=== PATIENT | female | born 1940 | race Caucasian/White ===

== ENCOUNTER 2021-02-06 09:00 | Outpatient (RCR) | payer MEDICARE, SELFPAY | END 2021-02-06 13:00 | disposition home or self-care (01) | LOC: OT 09:00 | PROVIDERS: PCP Nurse Practitioner Family; Visit Provider Orthopaedic Surgery Adult Reconstructive Orthopaedic Surgery | DX: S62.102D Fracture of unspecified carpal bone, left wrist, subsequent encounter for fracture with routine healing (principal) | CPT/HCPCS: 97014; 97018; 97035; 97110; 97140; 97164; 97165; 97530; G0283 ==

== ENCOUNTER → 2021-03-05 09:01 | Outpatient (CLI) | payer MEDICARE, SELFPAY ==
--- NOTE | 2021-03-05 09:26 | CT_ITS ---
PROCEDURE: CT SOFT TISSUE NECK WO/W CON CLINICAL HISTORY: right sided lymph node swollen COMPARISON: US THY US THYROID from 02/07/2017 TECHNIQUE: Oral Contrast: None IV Contrast: 75 mL Isovue 370 Axial images obtained with sagittal and coronal reformats. All CT scans at the facility use one or more dose reduction, viz: automated exposure control, ma/kV adjustment per patient size (including targeted exams where dose is matched to indication, i.e. head), or iterative reconstruction technique. FINDINGS: The nasopharynx has an unremarkable appearance. No obvious oropharynx or hypo pharyngeal lesions or masses. The parotid and submandibular glands appear unremarkable. Unremarkable epiglottis and glottic region. Enlarged lymph node is present posterior to the jugular vein and deep to the sternocleidomastoid muscle on the right, level 2 B. This measures 2.2 x 1.6 x 1.8 cm and demonstrates peripheral enhancement with decreased density centrally. Additional smaller nodes are present inferior to this region along the jugular vein. 1.4 cm node is present in the right supraclavicular area medially just lateral to the jugular vein. The There has been prior thyroid surgery. There does appear to be residual tissue inferior to the expected level of the isthmus with extension to the right of the trachea to the paraesophageal region. The inferior isthmus area measures 2.5 x 1.4 cm. The right paratracheal extension measures 2.1 by 1.4 cm. Heterogeneous density is noted in both of these regions. Lung apices are clear. There are degenerative changes in the cervical spine with degenerative disc disease at C5-C6 and C6-C7. IMPRESSION: 1. Right-sided cervical adenopathy as described above. The lymph nodes have an abnormal appearance with peripheral enhancement and decreased density centrally. This could be due to underlying infection or reactive change or even neoplasm. Follow-up suggested. Ultrasound-guided FNA of the largest node may provide further evaluation. 2. Prior thyroidectomy with residual heterogeneous tissue at the sternal notch region and in the right paratracheal area. Dictated by: Joseluis Montoya MD 03/06/2021 08:24 Joseluis Montoya MD in [place] 03/06/2021 08:24
[2021-03-05 09:49] LABS: Alanine Aminotransferase 12 U/L (12-78); Albumin Level 4.1 g/dl (3.5-5.0); Albumin/Globulin Ratio 1.3 (1.1-1.8); Alkaline Phosphatase 98 U/L (38-126); Anion Gap 11.9 mEq/L (5-15); Aspartate Amino Transferase 15 U/L (14-36); Bilirubin,Total 0.5 mg/dl (0.2-1.3); Blood Urea Nitrogen 8 mg/dl (7-17); Calcium 7.9 mg/dl (8.4-10.2); Carbon Dioxide 31 mmol/L (22.0-30.0); Chloride 92 mmol/L (98-107); Estimated Glomerular Filt Rate 154 ml/min (>60); GFR (African American) 186 ML/MIN (>60); Globulin 3.1 g/dL (1.3-3.2); Glucose 114 mg/dl (74-100); Potassium 3.9 mmoL/L (3.5-5.1); Sodium 131 mmol/L (136-145); Total Protein,Serum 7.2 g/dl (6.3-8.2)
== END ==
PROVIDERS: PCP Nurse Practitioner Family; Visit Provider Otolaryngology
DX: R22.1 Localized swelling, mass and lump, neck (principal); E03.9 Hypothyroidism, unspecified
CPT/HCPCS: 36415; 70492; 80053; Q9967

== ENCOUNTER → 2021-04-24 12:18 | Outpatient (CLI) | payer MEDICARE, SELFPAY ==
[2021-04-24 12:26] LABS: MANUAL DIFFERENTIAL MANUAL DIFFERENTIAL (MANUAL DIFF)
[2021-04-24 12:42] LABS: Basophils # 0.1 K/mm3 (0-0.2); Basophils % 1.1 % (0.1-2.0); Eosinophils # 0.1 K/mm3 (0.0-0.4); Eosinophils % 1.3 % (0.1-12.0); Hematocrit 42.6 % (37.0-47.0); Hemoglobin 13.9 g/dL (12.2-16.2); Lymphocytes # 1.3 K/mm3 (0.7-4.5); Lymphocytes % 22.1 % (10-50); Mean Corpuscular HGB Conc 32.6 g/dL (31.8-35.4); Mean Corpuscular Hemoglobin 29.6 pg (27.0-31.2); Mean Corpuscular Volume 90.8 fl (81-99); Mean Platelet Volume 7.3 fl (7.4-10.4); Monocytes # 0.3 K/mm3 (0.1-1.0); Monocytes % 5.1 % (1.7-9.3); Neutrophils # 4.1 K/mm3 (1.8-7.8); Neutrophils % 70.5 % (37.0-80.0); Platelet Count 388 K/mm3 (142-424); Red Blood Count 4.69 M/mm3 (4.20-5.40); Red Cell Distribution Width 12.8 % (11.5-17.5); White Blood Count 5.8 K/mm3 (4.8-10.8)
[2021-04-24 13:52] LABS: Alanine Aminotransferase 14 U/L (12-78); Albumin Level 4.6 g/dl (3.5-5.0); Albumin/Globulin Ratio 1.4 (1.1-1.8); Alkaline Phosphatase 90 U/L (38-126); Anion Gap 13.9 mEq/L (5-15); Aspartate Amino Transferase 17 U/L (14-36); Bilirubin,Total 0.3 mg/dl (0.2-1.3); Blood Urea Nitrogen 11 mg/dl (7-17); Calcium 8.5 mg/dl (8.4-10.2); Carbon Dioxide 29 mmol/L (22.0-30.0); Chloride 93 mmol/L (98-107); Estimated Glomerular Filt Rate 96 ml/min (>60); GFR (African American) 117 ML/MIN (>60); Globulin 3.2 g/dL (1.3-3.2); Glucose 118 mg/dl (74-100); Potassium 3.9 mmoL/L (3.5-5.1); Sodium 132 mmol/L (136-145); Total Protein,Serum 7.8 g/dl (6.3-8.2)
[2021-04-24 14:05] LABS: Intact Parathyroid Hormone 15.2 pg/mL (7.5-53.5)
[2021-04-24 14:24] LABS: Thyroid Stimulating Hormone 0.15 uIU/mL (0.465-4.68)
[2021-04-24 16:29] LABS: Lymphocytes % 17 % (10-50); Monocytes % 6 % (2-9); Neutrophils % 77 % (42-76); Platelet Estimate B; RBC Morphology BP; Total Cells Counted 100
[2021-04-25 08:18] LABS: CEA 11.5 ng/mL (0.0-4.7)
== END ==
PROVIDERS: Visit Provider Student in an Organized Health Care Education/Training Program
DX: E03.9 Hypothyroidism, unspecified (principal); R22.1 Localized swelling, mass and lump, neck; Z85.850 Personal history of malignant neoplasm of thyroid; R97.0 Elevated carcinoembryonic antigen [CEA]
CPT/HCPCS: 36415; 80053; 82308; 82378; 83970; 84443; 85007; 85014; 85018; 85048; 85049

== ENCOUNTER → 2021-05-02 09:52 | Outpatient (CLI) | payer MEDICARE, SELFPAY ==
--- NOTE | 2021-05-02 09:53 | US_ITS ---
Ordering Physician: Ray Velazquez MD Date of Service: 05/02/21 Procedure(s): US soft tissue head and neck Accession Number(s): [id number] cc: Sarina Lassiter APRN; Angel Luis Wright MD~ FINAL REPORT CLINICAL HISTORY: SCAN BEFORE BX fna palp rt neck node fna sternal notch mass FINDINGS: Utilizing ultrasound guidance, the right jugular lymph node was targeted. The patient was anesthetized with Lidocaine. 4 passes were made. The patient tolerated the procedure well. Next, the sternal notch lesion was targeted. The area was anesthetized with Lidocaine and 2 passes were made. The patient tolerated the procedure well. There were no complications. IMPRESSION: Ultrasound guided biopsies performed of the right jugular lymph node and sternal notch lesion. Reviewed, Interpreted and Dictated by Angel Luis Wright MD Transcribed by MICHAEL Loja Authenticated by Angel Luis Wright MD on 05/02/2021 03:14:38 PM [facility] SYSTEM[facility]
--- NOTE | 2021-05-02 10:23 | US_ITS ---
FINAL REPORT CLINICAL HISTORY: SCAN BEFORE BX fna palp rt neck node fna sternal notch mass FINDINGS: Utilizing ultrasound guidance, the right jugular lymph node was targeted. The patient was anesthetized with Lidocaine. 4 passes were made. The patient tolerated the procedure well. Next, the sternal notch lesion was targeted. The area was anesthetized with Lidocaine and 2 passes were made. The patient tolerated the procedure well. There were no complications. IMPRESSION: Ultrasound guided biopsies performed of the right jugular lymph node and sternal notch lesion. Reviewed, Interpreted and Dictated by Angel Luis Wright MD Transcribed by MICHAEL Loja Authenticated by Angel Luis Wright MD on 05/02/2021 03:14:38 PM [facility]
== END ==
PROVIDERS: PCP Nurse Practitioner Family; Visit Provider Student in an Organized Health Care Education/Training Program
DX: R22.1 Localized swelling, mass and lump, neck
CPT/HCPCS: 10005; 76536; 88173; 88305; 88342

== ENCOUNTER → 2022-12-19 18:08 | Outpatient (CLI) | payer MEDICARE, SELFPAY ==
[2022-12-19 19:09] LABS: Anion Gap 18.2 mEq/L (5-15); Blood Urea Nitrogen 30 mg/dl (7-17); Calcium 7.5 mg/dl (8.4-10.2); Carbon Dioxide 25 mmol/L (22.0-30.0); Chloride 95 mmol/L (98-107); Estimated Glomerular Filt Rate 36 ml/min (>60); GFR (African American) 44 ML/MIN (>60); Glucose 108 mg/dl (74-100); Magnesium 1.6 mg/dl (1.6-2.3); Potassium 5.2 mmoL/L (3.5-5.1); Sodium 133 mmol/L (136-145)
== END ==
PROVIDERS: PCP Internal Medicine Nephrology; Visit Provider Internal Medicine Nephrology
DX: N28.9 Disorder of kidney and ureter, unspecified (principal); E83.42 Hypomagnesemia
CPT/HCPCS: 80048; 83735

== ENCOUNTER → 2022-12-19 23:37 | Outpatient (CLI) | payer MEDICARE, SELFPAY | PROVIDERS: PCP Family Medicine; Visit Provider Family Medicine | DX: N28.9 Disorder of kidney and ureter, unspecified (principal) ==

== ENCOUNTER → 2022-12-26 16:39 | Outpatient (CLI) | payer MEDICARE, SELFPAY ==
[2022-12-26 18:04] LABS: Chloride 95 mmol/L (98-107); Potassium 5.3 mmoL/L (3.5-5.1); Sodium 131 mmol/L (136-145)
[2022-12-26 18:06] LABS: Blood Urea Nitrogen 28 mg/dl (7-17); Estimated Glomerular Filt Rate 36 ml/min (>60); GFR (African American) 44 ML/MIN (>60)
[2022-12-26 18:07] LABS: Anion Gap 23.3 mEq/L (5-15); Calcium 7.6 mg/dl (8.4-10.2); Carbon Dioxide 18 mmol/L (22.0-30.0); Glucose 98 mg/dl (74-100); Magnesium 1.8 mg/dl (1.6-2.3)
== END ==
PROVIDERS: PCP Family Medicine; Visit Provider Internal Medicine Nephrology
DX: N28.9 Disorder of kidney and ureter, unspecified (principal); E83.42 Hypomagnesemia
CPT/HCPCS: 80048; 83735

== ENCOUNTER → 2022-12-26 23:29 | Outpatient (CLI) | payer MEDICARE, SELFPAY | PROVIDERS: PCP Family Medicine; Visit Provider Nurse Practitioner Family | DX: N28.9 Disorder of kidney and ureter, unspecified (principal); E83.42 Hypomagnesemia ==

== ENCOUNTER → 2023-01-02 16:20 | Outpatient (CLI) | payer MEDICARE, SELFPAY ==
[2023-01-02 17:17] LABS: Chloride 98 mmol/L (98-107); Sodium 131 mmol/L (136-145)
[2023-01-02 17:18] LABS: Potassium 5.3 mmoL/L (3.5-5.1)
[2023-01-02 17:20] LABS: Anion Gap 21.3 mEq/L (5-15); Blood Urea Nitrogen 30 mg/dl (7-17); Calcium 7.9 mg/dl (8.4-10.2); Carbon Dioxide 17 mmol/L (22.0-30.0); Estimated Glomerular Filt Rate 39 ml/min (>60); GFR (African American) 48 ML/MIN (>60); Glucose 85 mg/dl (74-100)
[2023-01-02 17:21] LABS: Magnesium 1.7 mg/dl (1.6-2.3)
== END ==
PROVIDERS: PCP Family Medicine; Visit Provider Internal Medicine Nephrology
DX: N28.9 Disorder of kidney and ureter, unspecified (principal); E83.42 Hypomagnesemia
CPT/HCPCS: 80048; 83735

== ENCOUNTER → 2023-01-09 17:21 | Outpatient (CLI) | payer MEDICARE, SELFPAY ==
[2023-01-09 17:50] LABS: Chloride 98 mmol/L (98-107)
[2023-01-09 17:51] LABS: Potassium 5.1 mmoL/L (3.5-5.1); Sodium 132 mmol/L (136-145)
[2023-01-09 17:53] LABS: Blood Urea Nitrogen 48 mg/dl (7-17); Estimated Glomerular Filt Rate 24 ml/min (>60); GFR (African American) 29 ML/MIN (>60)
[2023-01-09 17:54] LABS: Anion Gap 21.1 mEq/L (5-15); Calcium 9.6 mg/dl (8.4-10.2); Carbon Dioxide 18 mmol/L (22.0-30.0); Glucose 125 mg/dl (74-100); Magnesium 1.9 mg/dl (1.6-2.3)
== END ==
PROVIDERS: PCP Internal Medicine Nephrology; Visit Provider Internal Medicine Nephrology
DX: N28.9 Disorder of kidney and ureter, unspecified (principal); E83.42 Hypomagnesemia
CPT/HCPCS: 80048; 83735

== ENCOUNTER → 2023-01-16 17:53 | Outpatient (CLI) | payer MEDICARE, SELFPAY ==
[2023-01-16 19:17] LABS: Chloride 104 mmol/L (98-107); Potassium 4.9 mmoL/L (3.5-5.1); Sodium 136 mmol/L (136-145)
[2023-01-16 19:20] LABS: Anion Gap 19.9 mEq/L (5-15); Blood Urea Nitrogen 41 mg/dl (7-17); Calcium 8.6 mg/dl (8.4-10.2); Carbon Dioxide 17 mmol/L (22.0-30.0); Estimated Glomerular Filt Rate 33 ml/min (>60); GFR (African American) 40 ML/MIN (>60); Glucose 112 mg/dl (74-100); Magnesium 1.8 mg/dl (1.6-2.3)
== END ==
PROVIDERS: Visit Provider Internal Medicine Nephrology
DX: N28.9 Disorder of kidney and ureter, unspecified (principal); E83.42 Hypomagnesemia
CPT/HCPCS: 80048; 83735

== ENCOUNTER → 2023-04-02 10:43 | Outpatient (CLI) | payer MEDICARE, SELFPAY ==
[2023-04-02 10:58] LABS: Microscopic, Urine URINE MICROSCOPIC (MICROSCOPIC)
[2023-04-02 11:15] LABS: Basophils % 0.3 % (0.1-2.0); Eosinophils # 0.1 K/mm3 (0.0-0.4); Hematocrit 40.7 % (37.0-47.0); Hemoglobin 13.6 g/dL (12.2-16.2); Lymphocytes # 2.2 K/mm3 (0.7-4.5); Lymphocytes % 19.7 % (10-50); Mean Corpuscular HGB Conc 33.3 g/dL (31.8-35.4); Mean Corpuscular Hemoglobin 30.4 pg (27.0-31.2); Mean Corpuscular Volume 91.3 fl (81-99); Mean Platelet Volume 7.4 fl (7.4-10.4); Monocytes # 0.4 K/mm3 (0.1-1.0); Monocytes % 3.8 % (1.7-9.3); Neutrophils # 8.3 K/mm3 (1.8-7.8); Neutrophils % 75.3 % (37.0-80.0); Platelet Count 511 K/mm3 (142-424); Red Blood Count 4.46 M/mm3 (4.20-5.40); Red Cell Distribution Width 13.4 % (11.5-17.5); White Blood Count 11.1 K/mm3 (4.8-10.8)
[2023-04-02 11:17] LABS: Appearance,Urine CLOUDY (Clear); Bilirubin,Urine Negative (Negative); Blood, Urine TRACE-I (Negative); Color,Urine YELLOW (Yellow); Glucose,Urine (UA) Negative (Negative); Ketones,Urine Negative (Negative); Leukocyte Esterase,Urine 3+ (Negative); Nitrate,Urine Negative (Negative); Protein,Urine 2+ (Negative); Urobilinogen,Urine 0.2 EU/dl (0.2)
[2023-04-02 11:22] LABS: Creatinine,Urine Random 73 mg/dL (Not Estab.)
[2023-04-02 11:31] LABS: Bacteria,Urine 4+ /lpf; WBC,Urine 50-100 #/hpf (0-3)
[2023-04-02 11:47] LABS: Albumin Level 3.8 g/dl (3.5-5.0); Blood Urea Nitrogen 23 mg/dl (7-17); Calcium 7.2 mg/dl (8.4-10.2); Carbon Dioxide 25 mmol/L (22.0-30.0); Chloride 98 mmol/L (98-107); Estimated Glomerular Filt Rate 60 ml/min (>60); GFR (African American) 73 ML/MIN (>60); Glucose 112 mg/dl (74-100); Phosphorous 5.3 mg/dl (2.5-4.5); Sodium 131 mmol/L (136-145)
== END ==
PROVIDERS: PCP Family Medicine; Visit Provider Internal Medicine Nephrology
DX: N28.9 Disorder of kidney and ureter, unspecified; N39.0 Urinary tract infection, site not specified; B96.29 Other Escherichia coli [E. coli] as the cause of diseases classified elsewhere; B96.89 Other specified bacterial agents as the cause of diseases classified elsewhere; Z79.899 Other long term (current) drug therapy
CPT/HCPCS: 36415; 80069; 81001; 82570; 84155; 85025; 87086

== ENCOUNTER 2023-07-09 10:31 | Outpatient (CLI) | payer MEDICARE, SELFPAY ==
[2023-07-09 11:39] LABS: Hematocrit 41.8 % (37.0-47.0); Hemoglobin 13.6 g/dL (12.2-16.2); Mean Corpuscular HGB Conc 32.6 g/dL (31.8-35.4); Mean Corpuscular Hemoglobin 29.7 pg (27.0-31.2); Mean Corpuscular Volume 91.1 fl (81-99); Platelet Count 507 K/mm3 (142-424); Red Blood Count 4.59 M/mm3 (4.20-5.40); Red Cell Distribution Width 14.6 % (11.5-17.5); White Blood Count 8.5 K/mm3 (4.8-10.8)
[2023-07-09 11:59] LABS: Anion Gap 14.3 mEq/L (5-15); Blood Urea Nitrogen 20 mg/dl (7-17); Calcium 8.3 mg/dl (8.4-10.2); Carbon Dioxide 27 mmol/L (22.0-30.0); Chloride 98 mmol/L (98-107); Estimated Glomerular Filt Rate 53 ml/min (>60); GFR (African American) 64 ML/MIN (>60); Glucose 102 mg/dl (74-100); Phosphorous 5.4 mg/dl (2.5-4.5); Potassium 4.3 mmoL/L (3.5-5.1); Sodium 135 mmol/L (136-145)
[2023-07-09 12:13] LABS: Creatinine,Urine Random 77 mg/dL (Not Estab.)
[2023-07-09 12:28] LABS: Appearance,Urine CLEAR (Clear); Bilirubin,Urine Negative (Negative); Blood, Urine TRACE-I (Negative); Color,Urine YELLOW (Yellow); Glucose,Urine (UA) Negative (Negative); Ketones,Urine TRACE (Negative); Leukocyte Esterase,Urine 2+ (Negative); Nitrate,Urine Negative (Negative); Protein,Urine 2+ (Negative); Urobilinogen,Urine 0.2 EU/dl (0.2)
[2023-07-09 12:30] LABS: Bacteria,Urine 4+ /lpf; Microscopic, Urine URINE MICROSCOPIC (MICROSCOPIC)
[2023-07-09 12:32] LABS: WBC,Urine 50-100 #/hpf (0-3)
[2023-07-10 07:13] LABS: HBsAg Screen Negative (Negative); HCV Ab Non Reactive (Non Reactive); Hep A Ab, IGM Negative (Negative); Hep B Core Ab, IgM Negative (Negative)
[2023-07-10 15:10] LABS: Albumin 3.5 g/dL (2.9-4.4); Alpha-1-Globulin 0.3 g/dL (0.0-0.4); Alpha-2-Globulin 1.1 g/dL (0.4-1.0); Complement C3 116 mg/dL (82-167); Gamma Globulin 1.2 g/dL (0.4-1.8); Immunoglobulin A, Qn 315 mg/dL (64-422); Immunoglobulin G, Qn 966 mg/dL (586-1602); Immunoglobulin M, Qn 403 mg/dL (26-217); Protein, Total 7.1 g/dL (6.0-8.5)
[2023-07-12 12:53] LABS: Antinuclear Antibodies, IFA Negative (.)
[2023-07-14 09:45] LABS: PDF SCANNED IMAGE
[2023-07-14 09:46] LABS: Free Lambda Lt Chains 32.9
== END 2023-07-09 23:59 ==
LOC: LAB 10:33
PROVIDERS: PCP Family Medicine; Visit Provider Internal Medicine Nephrology
DX: R80.1 Persistent proteinuria, unspecified (principal); B96.29 Other Escherichia coli [E. coli] as the cause of diseases classified elsewhere; R63.4 Abnormal weight loss; Z68.23 Body mass index [BMI] 23.0-23.9, adult
CPT/HCPCS: 36415; 80069; 80074; 81001; 82570; 82784; 83883; 84155; 84156; 84165; 85014; 85018; 85048; 85049; 86038; 86161; 86334; 87086

== ENCOUNTER 2023-08-13 06:50 | Emergency (ER) | payer MEDICARE, SELFPAY ==
[2023-08-13] VITALS (8 sets, daily range): BP systolic 136–177; BP diastolic 59–86; PULSE 54–81; RESP 16–20; TEMP 36.5–36.8; O2SAT 90–96; BMI 23.0
--- NOTE | 2023-08-13 07:09 | CT_ITS ---
FINAL REPORT TECHNIQUE: Thin section axial CT images with coronal reformats were obtained through the neck after the administration of IV contrast. This study was performed with techniques to keep radiation doses as low as reasonably achievable (ALARA). Individualized dose reduction techniques using automated exposure control or adjustment of mA and/or kV according to the patient''s size were employed. CLINICAL HISTORY: R sided neck pain, atraumatic, h/o thyroid ca COMPARISON: 03/05/2021 FINDINGS: Redemonstrated is heterogeneously enhancing right cervical adenopathy. Dominant nodule measures 1.9 cm in greatest dimension, slightly larger than previous. Finding is best seen on images 46-49 of series 3. Other smaller enhancing nodules are seen in the right cervical region. There are postoperative changes from partial thyroidectomy. Residual thyroid tissue is seen at the sternal notch and right superior mediastinum, similar to previous. There are changes of mild right maxillary sinusitis. IMPRESSION: Enhancing right cervical lymph nodes concerning for possible metastatic adenopathy. If not already obtained, tissue sampling of the dominant nodule is recommended. Residual thyroid tissue at the sternal notch and right superior mediastinum. Reviewed, Interpreted and Dictated by Angel Luis Wright MD Transcribed by Mary Kay Whittington Authenticated and [facility] [place]
--- NOTE | 2023-08-13 07:09 | CT_ITS ---
FINAL REPORT TECHNIQUE: Axial images were obtained of the cervical spine by computed tomography. Coronal and sagittal reconstruction process performed. This study was performed with techniques to keep radiation doses as low as reasonably achievable (ALARA). Individualized dose reduction techniques using automated exposure control or adjustment of mA and/or kV according to the patient''s size were employed. CLINICAL HISTORY: R sided neck pain, atraumatic, h/o thyroid ca FINDINGS: There is no acute fracture. There is no subluxation. There is advanced disc space narrowing at C5-6 and C6-7. There is moderate anterior and posterior osteophyte formation at these levels. There is moderate to high-grade bilateral neural foraminal narrowing at C5-6 and C6-7. There is moderate spinal canal compromise, particularly eccentric to the right at C5-6 and C6-7. Surgical clips are seen in the thyroid bed consistent with prior thyroidectomy. IMPRESSION: No acute fracture. Degenerative disc disease as above. Reviewed, Interpreted and Dictated by Angel Luis Wright MD Transcribed by Mary Kay Whittington Authenticated and [facility]
--- NOTE | 2023-08-13 07:13 | ED_ITS ---
Discharge Plan Disposition Patient Disposition: Home, Self-Care Condition: Good Prescriptions Prescriptions: New naproxen 500 mg tablet 500 mg PO BID PRN (Reason: pain) Qty: 20 0RF methocarbamol 750 mg tablet 750 mg PO Q8H PRN (Reason: pain) Qty: 20 0RF No Action acetaminophen 325 mg capsule 325 mg PO QID PRN multivitamin Tablet 1 tab PO DAILY calcitriol 0.25 mcg capsule 0.25 mcg PO DAILY magnesium 200 mg tablet 400 mg PO DAILY escitalopram oxalate 10 mg tablet 10 mg PO DAILY Qty: 90 2RF calcium carbonate 500 mg calcium (1,250 mg) tablet,chewable See Rx Instructions PO BID Rx Instructions: orally twice a day; 3,000mg orally twice daily levothyroxine 150 mcg tablet 150 mcg PO DAILY torsemide 5 mg tablet 5 mg PO DAILY amiloride 5 mg tablet 10 mg PO DAILY prazosin 1 mg capsule 3 mg PO BID Simbrinza 1-0.2 % drops,suspension 1 drp Eye-Left BID Caprelsa 100 mg tablet 200 mg PO DAILY nifedipine 60 mg tablet extended release 60 mg PO DAILY hydrochlorothiazide 25 mg tablet 25 mg PO DAILY prednisone 50 mg tablet 50 mg PO DAILY Qty: 5 0RF omeprazole 40 mg capsule,delayed release(DR/EC) 40 mg PO DAILY 90 Days Qty: 90 1RF Referrals Follow up/Referrals: Onur Guerrero MD [Primary Care Provider] - See instructions Activity Restrictions/Add. Instructions Additional Instructions/Restrictions: You were evaluated in the emergency department today. At this time, your CT scan shows enlargement of lymph nodes in the right side of your neck, which could be related to your history of cancer. For this, recommend close follow-up with your primary care provider as well as your oncology team. 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 You may also take Tylenol in addition to these medications. Do not take naproxen and ibuprofen together. Return to the emergency department for new or worsening symptoms. Clinical Impressions Clinical Impression: Neck pain on right side, Enlarged lymph node in neck Instructions Patient Instructions: DI for Neck Pain Discharge ED Provider: Radha [facility] HPI General Chief complaint: Neck Pain/Injury Stated complaint: pain, stiffness in neck, nausea Time Seen by Provider: 08/13/23 07:09 Mode of Arrival: Ambulatory Source of Information: Patient Limitations: No Limitations Description of Symptoms (Recalled from ER Triage Doc. by RN): Pt has had a stiff neck for 3 days. This morning the pain was more intense. 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 Patient reports that for the last 3 days, her neck has been stiff and she has had pain with turning her head. It is mostly on the right side. No known injuries. No redness, swelling, or other concerns. She notes that she initially was getting better yesterday, until she woke around 4:00 in the morning with muscle spasms in the right side of her neck and felt that she could not get comfortable. No other concerns noted, such as fevers, altered mental status, significant headache, dysphagia, shortness of breath, or other concerns. Related Data Home Medications Medication Instructions Recorded Confirmed acetaminophen 325 mg capsule 325 mg PO QID PRN 01/15/22 04/03/23 calcitriol 0.25 mcg capsule 0.25 mcg PO DAILY 01/15/22 04/03/23 multivitamin 1 tab PO DAILY 01/15/22 04/03/23 amiloride 5 mg tablet 10 mg PO DAILY 12/27/22 04/03/23 brinzolamide 1 %-brimonidine 0.2 % 1 drp Eye-Left BID 12/27/22 04/03/23 eye drops,suspension (Simbrinza) calcium carbonate See Rx Instructions PO BID 12/27/22 04/03/23 levothyroxine 150 mcg tablet 150 mcg PO DAILY hypothyroidism 12/27/22 04/03/23 magnesium 200 mg tablet 400 mg PO DAILY 12/27/22 04/03/23 prazosin 1 mg capsule 3 mg PO BID 12/27/22 04/03/23 torsemide 5 mg tablet 5 mg PO DAILY 12/27/22 04/03/23 hydrochlorothiazide 25 mg tablet 25 mg PO DAILY edema 04/03/23 04/03/23 nifedipine 60 mg tablet,extended 60 mg PO DAILY HTN 04/03/23 04/03/23 release vandetanib 100 mg tablet (Caprelsa) 200 mg PO DAILY thyroid cancer 04/03/23 04/03/23 Previous Rx's Medication Instructions Recorded escitalopram oxalate 10 mg tablet 10 mg PO DAILY #90 tabs 12/26/22 prednisone 50 mg tablet 50 mg PO DAILY #5 tabs 04/03/23 omeprazole 40 mg capsule,delayed 40 mg PO DAILY GERD 90 days #90 04/22/23 release caps methocarbamol 750 mg tablet 750 mg PO Q8H PRN pain #20 tabs 08/13/23 naproxen 500 mg tablet 500 mg PO BID PRN pain #20 tabs 08/13/23 Allergies Allergy/AdvReac Type Severity Reaction Status Date / Time amoxicillin [From AUGMENTIN] Allergy Mild VOMITING Verified 04/03/23 11:33 clavulanic acid Allergy Mild VOMITING Verified 04/03/23 11:33 [From AUGMENTIN] [facility] Disclaimer: The information contained in this section may have been updated after the patient was seen, as this information can be updated by other users. Medical History Anxiety Thyroid cancer Hypertension Surgical History Hx of fracture of wrist H/O parathyroidectomy History of cholecystectomy History of hysterectomy H/O thyroidectomy Family History Father Cancer Mother Coronary artery disease Brother Diabetes Cancer Social History Smoking Status: Former smoker alcohol intake: never substance use type: denies use current occupational status: retired Travel in the last 8 weeks: None housing: house lives independently: No ROS Obtained: Yes All systems reviewed & no additional complaints except as documented Physical Exam General General appearance: alert and in no apparent distress Head Head exam: atraumatic and normocephalic Eye Eye exam: Present normal appearance, PERRL and EOMI ENT ENT exam: Present normal exam, normal oropharynx, mucous membranes moist and normal external ear exam Neck Neck exam: Present full ROM, trachea midline and tenderness (Tenderness to palpation of the right SCM without significant swelling, redness, warmth, or other concerns. No palpable areas of fluctuance or masses.); Absent meningismus, lymphadenopathy or thyromegaly Chest Chest inspection: Present normal inspection and symmetric chest wall rise; Absent tenderness Respiratory Respiratory exam: Present normal lung sounds bilaterally; Absent respiratory distress, wheezes, stridor or accessory muscle use Cardiovascular Cardiovascular exam: Present regular rate and normal rhythm Abdominal Exam Abdominal exam: Present soft; Absent distention, tenderness or guarding Extremities Exam Extremities exam: Present normal inspection, full ROM and normal capillary refill; Absent tenderness or edema Back Exam Back exam: Present normal inspection and full ROM; Absent tenderness Neurological Exam Neurological exam: Present alert, oriented X3, CN II-XII intact and normal gait; Absent motor sensory deficit Psychiatric Psychiatric exam: Present normal affect and normal mood Skin Skin exam: Present warm and dry Medical Decision Making Medical Records Medical records reviewed: Yes I reviewed the patient's medical records. Teddy Inquiry Pt receiving controlled substance: No Vital Signs: 08/13/23 06:53 08/13/23 07:00 08/13/23 07:30 Temperature 97.7 F Temperature Source Oral Pulse Rate 78 66 Pulse Rate [Left] 81 Respiratory Rate 16 Blood Pressure 155/81 H 161/83 H Blood Pressure [Right Arm] 177/86 H Blood Pressure Mean [Right Arm] 116 02 Sat by Pulse Oximetry 94 L 94 L 90 L Oxygen Delivery Method Room Air Room Air 08/13/23 08:00 08/13/23 08:30 08/13/23 09:00 Temperature Temperature Source Pulse Rate 60 56 L 56 L Pulse Rate [Left] Respiratory Rate Blood Pressure 144/71 H 145/64 H 141/63 H Blood Pressure [Right Arm] Blood Pressure Mean [Right Arm] 02 Sat by Pulse Oximetry 91 L 90 L 90 L Oxygen Delivery Method Room Air Room Air 08/13/23 09:30 08/13/23 10:10 Temperature 98.2 F Temperature Source Pulse Rate 54 L 57 L Pulse Rate [Left] Respiratory Rate 20 Blood Pressure 136/59 L 148/65 H Blood Pressure [Right Arm] Blood Pressure Mean [Right Arm] 02 Sat by Pulse Oximetry 90 L Oxygen Delivery Method Room Air Room Air Lab Data Lab results reviewed: Yes I reviewed the patient's lab results. Lab Results 08/13/23 07:20: WBC 10.9 H, RBC 4.70, Hgb 13.5, Hct 41.7, MCV 88.7, MCH 28.6, MCHC 32.3, RDW 15.2, Plt Count 492 H, MPV 7.3 L, Neut % (Auto) 87.0 H, Lymph % (Auto) 8.8 L, [place] % (Auto) 3.6, Eos % (Auto) 0.3, Baso % (Auto) 0.3, Neut # (Auto) 9.5 H, Lymph # (Auto) 1.0, [place] # (Auto) 0.4, Eos # (Auto) 0.0, Baso # (Auto) 0.0, Total Counted 100, Neutrophils % (Manual) 92 H, Band Neutrophils % 2.0, Lymphocytes % (Manual) 3 L, Monocytes % (Manual) 3, Platelet Estimate Slight increase, RBC Morphology Normal, Sodium 134 L, Potassium 3.9, Chloride 98, Carbon Dioxide 29, Anion Gap 10.9, BUN 19 H, Creatinine 0.90, Estimated Creat Clear 40, Estimated GFR 60, Est GFR ( Amer) 73, Glucose 133 H, C alcium 8.3 L, TSH 5.71 H, Thyroxine (T4) 14.6 H 08/13/23 07:20 08/13/23 07:20 Orders (Tests/Meds): ED MEDICATIONS Discontinued Medications Generic Name Dose Route Start Last Admin Trade Name Alexander PRN Reason Stop Dose Admin Acetaminophen 1,000 mg 08/13/23 07:09 08/13/23 07:22 Acetaminophen 500mg Tab PO 08/13/23 07:10 1,000 mg ONCE ONE Administration Iopamidol 75 ml 08/13/23 08:22 08/13/23 08:24 Iopamidol-370 (76%);100ml Bottle IV 08/13/23 08:23 75 ml ONCE ONE Administration Ketorolac Tromethamine 15 mg 08/13/23 07:09 08/13/23 07:22 Ketorolac 30mg/Ml Vial IV 08/13/23 07:10 15 mg ONCE ONE Administration Lidocaine 1 each 08/13/23 07:09 08/13/23 07:23 Lidocaine 5% Transdermal Patch TP 08/13/23 07:10 1 each ONCE ONE Administration Methocarbamol 500 mg 08/13/23 07:10 08/13/23 07:22 Methocarbamol 500mg Tablet PO 08/13/23 07:11 500 mg ONCE ONE Administration Ondansetron HCl 4 mg 08/13/23 07:09 08/13/23 07:22 Ondansetron 4mg/2ml Vial IV 08/13/23 07:10 4 mg ONCE ONE Administration Oxycodone HCl 5 mg 08/13/23 07:11 08/13/23 07:22 Oxycodone 5mg Immediate Release Tablet PO 08/13/23 07:12 5 mg ONCE ONE Administration Sodium Chloride 10 ml 08/13/23 07:21 Sodium Chloride 0.9% 10ml Flush Syringe IV 09/12/23 07:20 NEEDED PRN Maintain IV Site Sodium Chloride 10 ml 08/13/23 08:22 08/13/23 08:24 Sodium Chloride 0.9% 10ml Syr (Rad Only) IV 08/13/23 08:23 10 ml ONCE ONE Administration ORDERS Category Date Time Status CT cervical spine wo con Stat Cat Scan 08/13/23 07:[address] soft tissue neck w con Stat Cat Scan 08/13/23 07:09 Completed Basic Metabolic Panel Stat Lab 08/13/23 07:20 Completed Complete Blood Count Auto Diff Stat Lab 08/13/23 07:20 Completed T4 (Thyroxine) Stat Lab 08/13/23 07:20 Completed Thyroid Stimulating Hormone Stat Lab 08/13/23 07:20 Completed Medical Decision Narrative: In summary, this patient is a 83-year-old female presenting to the Emergency Department for evaluation of right-sided neck pain. Differential diagnoses considered include but are not limited to muscle spasm, torticollis, lymphadenitis, osteoarthritis, mass, worsening of malignancy. Ruling out the most morbid conditions drove assessment. On exam, the patient is well-appearing and is alert and oriented. She has had no fevers or infectious symptoms to suggest meningitis as a cause. She has had no traumatic injury and has no obvious masses or swelling on exam. Based on history and clinical exam, I favor simple muscle spasm as the most likely cause of the patient's pain, however she does have a complicated history of medullary thyroid cancer status post thyroidectomy as well as lymph node resection. This increases risk for morbidity. Workup included CBC, BMP, TSH, T4, CT C-spine, and CT soft tissue neck with IV contrast. She was given oral Tylenol, IV Toradol, oral oxycodone, oral Robaxin, and a topical Lidoderm patch for symptomatic improvement. I independently interpreted CT scans prior to the radiologist read and noted right-sided lymphadenopathy. Please see their read for final interpretation. Per radiology, this could be related to her malignancy. Labs were obtained that demonstrated very mild leukocytosis as well as mildly elevated TSH and T4. On reassessment, patient had great improvement after administration of as above. She states she is feeling better.. She has improved range of motion of her neck. At this time, feel the patient's symptoms are likely related to the lymphadenopathy versus musculoskeletal strain, specifically of the SCM which is tender. I do feel that she is appropriate for discharge home, as she already has close a patient follow-up arranged with her oncology team and primary care. I gave her very strict return precautions and prescriptions for naproxen and Robaxin presented medic improvement. Patient was discharged in stable condition after all questions were answered. Critical Care Critical Care Time Critical Care Time: No
[2023-08-13] MEDS: KETOROLAC 30MG/ML VIAL 15 MG IV (07:22)
[2023-08-13] MEDS: OXYCODONE 5MG IMMEDIATE RELEASE TABLET 5 MG PO (07:22)
[2023-08-13] MEDS: METHOCARBAMOL 500MG TABLET 500 MG PO (07:22)
[2023-08-13] MEDS: ACETAMINOPHEN 500MG TAB 1000 MG PO (07:22)
[2023-08-13] MEDS: ONDANSETRON 4MG/2ML VIAL 4 MG IV (07:22)
[2023-08-13] MEDS: LIDOCAINE 5% TRANSDERMAL PATCH 1 EACH TP (07:23)
[2023-08-13 07:43] LABS: Basophils % 0.3 % (0.1-2.0); Eosinophils % 0.3 % (0.1-12.0); Hematocrit 41.7 % (37.0-47.0); Hemoglobin 13.5 g/dL (12.2-16.2); Lymphocytes % 8.8 % (10-50); Mean Corpuscular HGB Conc 32.3 g/dL (31.8-35.4); Mean Corpuscular Hemoglobin 28.6 pg (27.0-31.2); Mean Corpuscular Volume 88.7 fl (81-99); Mean Platelet Volume 7.3 fl (7.4-10.4); Monocytes # 0.4 K/mm3 (0.1-1.0); Monocytes % 3.6 % (1.7-9.3); Neutrophils # 9.5 K/mm3 (1.8-7.8); Platelet Count 492 K/mm3 (142-424); Red Cell Distribution Width 15.2 % (11.5-17.5); White Blood Count 10.9 K/mm3 (4.8-10.8)
[2023-08-13 07:46] LABS: Chloride 98 mmol/L (98-107); Potassium 3.9 mmoL/L (3.5-5.1); Sodium 134 mmol/L (136-145)
[2023-08-13 07:47] LABS: MANUAL DIFFERENTIAL MANUAL DIFFERENTIAL (MANUAL DIFF)
[2023-08-13 07:49] LABS: Anion Gap 10.9 mEq/L (5-15); Blood Urea Nitrogen 19 mg/dl (7-17); Carbon Dioxide 29 mmol/L (22.0-30.0); Creatinine Clearance Estimated 40 mL/min (50-200); Estimated Glomerular Filt Rate 60 ml/min (>60); GFR (African American) 73 ML/MIN (>60)
[2023-08-13 07:50] LABS: Calcium 8.3 mg/dl (8.4-10.2); Glucose 133 mg/dl (74-100)
[2023-08-13 08:07] LABS: T4 (Thyroxine) 14.6 ug/dl (5.53-11.0)
--- NOTE | 2023-08-13 08:08 | PC.NURSE ---
PT TO CT
[2023-08-13 08:21] LABS: Thyroid Stimulating Hormone 5.71 uIU/mL (0.465-4.68)
[2023-08-13] MEDS: IOPAMIDOL-370 (76%);100ML BOTTLE 75 ML IV (08:24)
[2023-08-13] MEDS: SODIUM CHLORIDE 0.9% 10ML SYR (RAD ONLY) 10 ML IV (08:24)
[2023-08-13 09:06] LABS: Lymphocytes % 3 % (10-50); Monocytes % 3 % (2-9); Neutrophils % 92 % (42-76); Total Cells Counted 100
[2023-08-13 09:07] LABS: Platelet Estimate Slight Increase; RBC Morphology Normal
--- NOTE | 2023-08-13 09:25 | PC.NURSE ---
SPOKE WITH RADIOLOGY, WILL CHECK ON CT READ
--- NOTE | 2023-08-13 09:54 | PC.NURSE ---
SPOKE WITH RADIOLOGY AGAIN, WILL PRINT PRELIM OF REPORT
--- NOTE | 2023-08-13 10:02 | PC.NURSE ---
DR GROSSMAN AT BEDSIDE TO UPDATE PT AND FAMILY
== END 2023-08-13 10:15 | disposition home or self-care (01) ==
PROVIDERS: Emergency Provider Emergency Medicine; PCP Family Medicine
DX: M54.2 Cervicalgia (principal); R59.0 Localized enlarged lymph nodes; M62.838 Other muscle spasm; K21.9 Gastro-esophageal reflux disease without esophagitis; I10 Essential (primary) hypertension; Z87.891 Personal history of nicotine dependence
CPT/HCPCS: 70491; 72125; 80048; 84436; 84443; 85007; 85025; 96374; 96375; 99284; J2405; Q9967

== ENCOUNTER 2023-10-13 16:31 | Outpatient (CLI) | payer MEDICARE, SELFPAY ==
[2023-10-13 18:17] LABS: Microscopic, Urine URINE MICROSCOPIC (MICROSCOPIC)
[2023-10-13 18:47] LABS: Hemoglobin 13.1 g/dL (12.2-16.2); Mean Corpuscular HGB Conc 31.3 g/dL (31.8-35.4); Mean Corpuscular Hemoglobin 27.9 pg (27.0-31.2); Mean Corpuscular Volume 89.3 fl (81-99); Platelet Count 385 K/mm3 (142-424); Red Cell Distribution Width 16.5 % (11.5-17.5); White Blood Count 7.2 K/mm3 (4.8-10.8)
[2023-10-13 18:52] LABS: Albumin Level 3.9 g/dl (3.5-5.0); Anion Gap 17.2 mEq/L (5-15); Blood Urea Nitrogen 18 mg/dl (7-17); Carbon Dioxide 27 mmol/L (22.0-30.0); Chloride 96 mmol/L (98-107); Estimated Glomerular Filt Rate 60 ml/min (>60); GFR (African American) 73 ML/MIN (>60); Glucose 87 mg/dl (74-100); Phosphorous 6.3 mg/dl (2.5-4.5); Potassium 4.2 mmoL/L (3.5-5.1); Sodium 136 mmol/L (136-145)
[2023-10-13 19:22] LABS: Appearance,Urine CLEAR (Clear); Bilirubin,Urine Negative (Negative); Blood, Urine 1+ (Negative); Color,Urine YELLOW (Yellow); Glucose,Urine (UA) Negative (Negative); Ketones,Urine Negative (Negative); Leukocyte Esterase,Urine 2+ (Negative); Nitrate,Urine Negative (Negative); PH,Urine 6.5 (5.0-8.5); Protein,Urine 2+ (Negative)
[2023-10-13 19:40] LABS: Creatinine,Urine Random 53 mg/dL (Not Estab.)
[2023-10-13 19:50] LABS: Bacteria,Urine 3+ /lpf; RBC,Urine Occasional #/hpf (0-3); Squamous Epithelial Cell,Urine Occasional #/hpf (0-5); Transitional Epi Cells,Urine OCC #/lpf (0-3)
== END 2023-10-13 23:59 | disposition home or self-care (01) ==
LOC: LAB.DROPOF 16:34
PROVIDERS: PCP Internal Medicine Nephrology; Visit Provider Internal Medicine Nephrology
DX: N18.2 Chronic kidney disease, stage 2 (mild) (principal); B96.20 Unspecified Escherichia coli [E. coli] as the cause of diseases classified elsewhere
CPT/HCPCS: 80069; 81001; 82570; 84156; 85014; 85018; 85048; 85049; 87086; 87088; 87186

== ENCOUNTER 2023-10-22 09:47 | Outpatient (CLI) | payer MEDICARE, SELFPAY ==
--- NOTE | 2023-10-22 09:54 | XR_ITS ---
FINAL REPORT CLINICAL HISTORY: left leg pain COMPARISON: None FINDINGS: LEFT HIP: Two views of the left hip with an AP view of the pelvis demonstrate no acute fracture or dislocation. There are mild degenerative changes. The visualized bony structures are well aligned. No soft tissue abnormality is seen. IMPRESSION: Mild degenerative changes without acute bony abnormality. Reviewed, Interpreted and Dictated by Colton Carmichael MD Transcribed by Rashida Greene Authenticated and [facility]
--- NOTE | 2023-10-22 09:54 | XR_ITS ---
FINAL REPORT CLINICAL HISTORY: Left leg pain COMPARISON: None FINDINGS: 3 views of the lumbosacral spine were obtained. No fracture is identified. There is moderate to severe diffuse degenerative disc disease. Mild levoscoliosis is noted. There is facet arthropathy. IMPRESSION: Degenerative changes without acute bony abnormality. Reviewed, Interpreted and Dictated by Colton Carmichael MD Transcribed by Rashida Greene Authenticated and [facility]
== END 2023-10-22 23:59 | disposition home or self-care (01) ==
LOC: RAD 09:51
PROVIDERS: PCP Family Medicine; Visit Provider Nurse Practitioner Family
DX: M79.605 Pain in left leg (principal); R20.2 Paresthesia of skin
CPT/HCPCS: 72100; 73502

== ENCOUNTER 2023-11-13 16:28 | Outpatient (CLI) | payer MEDICARE, SELFPAY ==
--- NOTE | 2023-11-13 16:48 | MR_ITS ---
FINAL REPORT TECHNIQUE: Multiplanar and multisequence imaging of the lumbar spine was obtained without contrast. CLINICAL HISTORY: left sided hip and leg pain COMPARISON: None FINDINGS: There is degradation of overall image quality on the axial images secondary to motion artifact. Levoscoliosis is present. There is minimal grade 1 spondylolisthesis of L2 on L3.. Vertebral body height is preserved. The spinal cord ends at the level of L1/2. There is normal signal intensity within the substance of the distal spinal cord. There is a large hemangioma in the L1 vertebral body, with a smaller hemangioma within the L3 vertebral body. Renal cysts are present. One of the more lateral cysts has several septa, and measures 3 cm in diameter. L1-2: There is no focal disc herniation, central canal stenosis or neuroforaminal narrowing. L2-3: An annular bulge is present with facet osteoarthropathy and osteophytes. There is moderate canal stenosis and moderate to severe bilateral neural foraminal narrowing. L3-4: An annular bulge is present with facet osteoarthropathy and osteophytes. There is moderate canal stenosis and severe bilateral neural foraminal narrowing. L4-5: An annular bulge is present with facet osteoarthropathy and osteophytes. There is moderate canal stenosis and moderate bilateral neural foraminal narrowing. L5-S1: An annular bulge is present with facet osteoarthropathy and osteophytes. There is mild right and severe left neural foraminal narrowing. IMPRESSION: Multilevel lumbar degenerative change is present, with multilevel canal stenosis and neural foraminal narrowing as described. Complex left renal cyst as described, would consider renal protocol CT for further evaluation. Reviewed, Interpreted and Dictated by Jacqui Orozco MD Transcribed by Skylar Schmidt Authenticated and [facility]
== END 2023-11-13 23:59 | disposition home or self-care (01) ==
LOC: RAD 16:30
PROVIDERS: PCP Family Medicine; Visit Provider Family Medicine
DX: M54.50 Low back pain, unspecified (principal)
CPT/HCPCS: 72148

== ENCOUNTER 2023-12-05 10:07 | Outpatient (CLI) | payer MEDICARE, SELFPAY ==
--- NOTE | 2023-12-05 10:07 | CT_ITS ---
FINAL REPORT TECHNIQUE: Pre- and postcontrast images of the abdomen were performed by computed tomography. Reconstructed images were obtained and reviewed. This study was performed with techniques to keep radiation doses as low as reasonably achievable (ALARA). Individualized dose reduction techniques using automated exposure control or adjustment of mA and/or kV according to the patient's size were employed. CLINICAL HISTORY: renal cyst FINDINGS: There is mild bibasilar atelectasis or scar. There is moderate vascular calcification. There is cardiomegaly. The liver is normal in size and attenuation. The patient is status post cholecystectomy. The spleen is unremarkable. The adrenals are normal. The pancreas is unremarkable. There are multiple bilateral nonobstructing renal stones measuring up to approximately 4 mm. There is a 4.2 cm mass in the upper pole of the left kidney consistent with a cyst. There is a 2.9 cm cyst in the lower pole of the left kidney. There is a small umbilical hernia containing fat. IMPRESSION: Bilateral renal stones. Bilateral renal cysts. Reviewed, Interpreted and Dictated by Fran Pena III, MD Transcribed by Mary Kay Whittington Authenticated and . [facility]
[2023-12-05 10:40] LABS: Blood Urea Nitrogen 15 mg/dl (7-17); Estimated Glomerular Filt Rate 53 ml/min (>60); GFR (African American) 64 ML/MIN (>60)
[2023-12-05] MEDS: SODIUM CHLORIDE 0.9% 10ML SYR (RAD ONLY) 10 ML IV (10:54)
[2023-12-05] MEDS: IOPAMIDOL-370 (76%);100ML BOTTLE 75 ML IV (10:54)
== END 2023-12-05 23:59 | disposition home or self-care (01) ==
LOC: RAD 10:07
PROVIDERS: PCP Family Medicine; Visit Provider Family Medicine
DX: N28.1 Cyst of kidney, acquired (principal)
CPT/HCPCS: 36415; 74170; 82565; 84520; Q9967

== ENCOUNTER 2023-12-12 18:32 | Outpatient (CLI) | payer MEDICARE, SELFPAY ==
[2023-12-12 19:03] LABS: Microscopic, Urine URINE MICROSCOPIC (MICROSCOPIC)
[2023-12-12 19:16] LABS: Hematocrit 44.7 % (37.0-47.0); Hemoglobin 13.8 g/dL (12.2-16.2); Mean Corpuscular HGB Conc 30.8 g/dL (31.8-35.4); Mean Corpuscular Hemoglobin 28.8 pg (27.0-31.2); Mean Corpuscular Volume 93.5 fl (81-99); Platelet Count 479 K/mm3 (142-424); Red Blood Count 4.78 M/mm3 (4.20-5.40); White Blood Count 8.1 K/mm3 (4.8-10.8)
[2023-12-12 19:40] LABS: Appearance,Urine CLEAR (Clear); Bilirubin,Urine Negative (Negative); Blood, Urine 1+ (Negative); Color,Urine YELLOW (Yellow); Glucose,Urine (UA) Negative (Negative); Ketones,Urine Negative (Negative); Leukocyte Esterase,Urine 2+ (Negative); Nitrate,Urine Negative (Negative); Protein,Urine 2+ (Negative); Specific Gravity, Urine 1.025 (1.005-1.030); Urobilinogen,Urine 0.2 EU/dl (0.2)
[2023-12-12 20:01] LABS: Creatinine,Urine Random 74 mg/dL (Not Estab.)
[2023-12-12 20:31] LABS: WBC,Urine 20-50 #/hpf (0-3)
[2023-12-12 20:32] LABS: Bacteria,Urine 4+ /lpf; RBC,Urine Occasional #/hpf (0-3)
[2023-12-12 20:51] LABS: Albumin Level 3.5 g/dl (3.5-5.0); Anion Gap 15.4 mEq/L (5-15); Blood Urea Nitrogen 14 mg/dl (7-17); Calcium 8.6 mg/dl (8.4-10.2); Carbon Dioxide 24 mmol/L (22.0-30.0); Chloride 98 mmol/L (98-107); Estimated Glomerular Filt Rate 69 ml/min (>60); GFR (African American) 83 ML/MIN (>60); Glucose 74 mg/dl (74-100); Phosphorous 5.1 mg/dl (2.5-4.5); Potassium 5.4 mmoL/L (3.5-5.1); Sodium 132 mmol/L (136-145)
== END 2023-12-12 23:59 | disposition home or self-care (01) ==
LOC: LAB.DROPOF 18:34
PROVIDERS: PCP Internal Medicine Nephrology; Visit Provider Internal Medicine Nephrology
DX: R80.1 Persistent proteinuria, unspecified (principal); N18.2 Chronic kidney disease, stage 2 (mild); B95.2 Enterococcus as the cause of diseases classified elsewhere
CPT/HCPCS: 80069; 81001; 82570; 84156; 85014; 85018; 85048; 85049; 87086; 87088; 87186

== ENCOUNTER 2023-12-15 08:51 | Outpatient (POV) | payer MEDICARE, SELFPAY ==
--- NOTE | 2023-12-15 09:22 | EXP.PAIN.OV ---
HPI Data of Consult Patient: new to practice Consult date: 12/15/23 Requesting Physician: Radha Hogan APRN Primary Care Provider: Onur Guerrero MD Consult Narrative Reason for consult: Low back pain, left leg pain History of present illness: Ms. Guerrier is a 83 year old female who presents today as a new patient. Patient is rating her pain a 10 out of 10. Patient states her pain is all in her low back and radiates down her entire left extremity. Patient states this has been going on for longer than a month unrelated to any specific trauma or injury. Patient describes it as an aching sensation with numbness down the extremity. Patient does state the pain interferes with her ability perform activities of daily living such as cooking and cleaning. Patient states it is worse with prolonged walking or standing and does get a little bit better with sitting. Patient has tried [id number] medications along with heat with no additional changes. Patient is currently in physical therapy and states it does help some however is very temporary and is back to her baseline after she leaves these appointments. Patient denies any prior surgery history or injection history. Patient is interested in any help we may be able to provide. CC: Radha Hogan APRN [facility] Disclaimer: The information contained in this section may have been updated after the patient was seen, as this information can be updated by other users. Medical History Anxiety Thyroid cancer Hypertension Surgical History Hx of fracture of wrist H/O parathyroidectomy History of cholecystectomy History of hysterectomy H/O thyroidectomy Family History Father Cancer Mother Coronary artery disease Brother Diabetes Cancer Social History Smoking Status: Former smoker alcohol intake: never substance use type: denies use current occupational status: retired Travel in the last 8 weeks: None housing: house lives independently: No Review of Systems Review of Systems Review of systems:: pertinent systems reviewed and negative unless documented below Review of systems (narrative): Review of Systems: General: No recent weight changes, no fever, no sleep disturbances Respiratory: No cough, no shortness of air, no recurring pulmonary infections Cardiovascular/peripheral vascular: No chest pain, no palpitations, no edema, no shortness of breath Gastrointestinal: No new onset incontinence, normal bowel movements reported Genitourinary: No new onset incontinence Musculoskeletal: Low back pain, left leg pain Psychiatric: [Normal mood/affect] Neurological: [Denies weakness in extremities], [denies balance issues] Meds Home Medications and Allergies Home Medications ?Medication ?Instructions ?Recorded ?Confirmed ?Type acetaminophen 325 mg capsule 325 mg PO QID PRN 01/15/22 11/21/23 History calcitriol 0.25 mcg capsule 0.25 mcg PO DAILY 01/15/22 11/21/23 History multivitamin 1 tab PO DAILY 01/15/22 11/21/23 History amiloride 5 mg tablet 10 mg PO DAILY 12/27/22 11/21/23 History brinzolamide 1 %-brimonidine 0.2 % 1 drp Eye-Left BID 12/27/22 11/21/23 History eye drops,suspension (Simbrinza) calcium carbonate See Rx Instructions PO BID 12/27/22 11/21/23 History levothyroxine 150 mcg tablet 150 mcg PO DAILY hypothyroidism 12/27/22 11/21/23 History magnesium 200 mg tablet 400 mg PO DAILY 12/27/22 11/21/23 History nifedipine 60 mg tablet,extended 60 mg PO DAILY HTN 04/03/23 11/21/23 History release vandetanib 100 mg tablet (Caprelsa) 200 mg PO DAILY thyroid cancer 04/03/23 11/21/23 History escitalopram oxalate 10 mg tablet 10 mg PO DAILY #90 tabs 09/23/23 11/21/23 Rx aspirin 81 mg tablet,delayed 81 mg PO DAILY 09/29/23 11/21/23 History release (Sayra Low Dose Aspirin) omeprazole 40 mg capsule,delayed 40 mg PO DAILY GERD 90 days #90 10/20/23 11/21/23 Rx release caps hydrochlorothiazide 12.5 mg tablet 12.5 mg PO 11/21/23 11/21/23 History valsartan 80 mg tablet 80 mg PO DAILY 11/21/23 11/21/23 History New Prescriptions to Start Prescriptions: Allergies Allergy/AdvReac Type Severity Reaction Status Date / Time amoxicillin [From AUGMENTIN] Allergy Mild VOMITING Verified 11/03/23 09:22 clavulanic acid Allergy Mild VOMITING Verified 11/03/23 09:22 [From AUGMENTIN] Objective Narrative: Physical Exam: General: Alert and oriented x3, no acute distress, pleasant and cooperative Lungs: Respirations even and unlabored, symmetrical chest expansion Eyes: PERRL Musculoskeletal: Flexion and extension of lumbar [spine] somewhat guarded secondary to pain, [antalgic gait noted] Neurological: Speech clear, no gross sensory deficit Additional findings Additional findings: FINDINGS: There is degradation of overall image quality on the axial images secondary to motion artifact. Levoscoliosis is present. There is minimal grade 1 spondylolisthesis of L2 on L3.. Vertebral body height is preserved. The spinal cord ends at the level of L1/2. There is normal signal intensity within the substance of the distal spinal cord. There is a large hemangioma in the L1 vertebral body, with a smaller hemangioma within the L3 vertebral body. Renal cysts are present. One of the more lateral cysts has several septa, and measures 3 cm in diameter. L1-2: There is no focal disc herniation, central canal stenosis or neuroforaminal narrowing. L2-3: An annular bulge is present with facet osteoarthropathy and osteophytes. There is moderate canal stenosis and moderate to severe bilateral neural foraminal narrowing. L3-4: An annular bulge is present with facet osteoarthropathy and osteophytes. There is moderate canal stenosis and severe bilateral neural foraminal narrowing. L4-5: An annular bulge is present with facet osteoarthropathy and osteophytes. There is moderate canal stenosis and moderate bilateral neural foraminal narrowing. L5-S1: An annular bulge is present with facet osteoarthropathy and osteophytes. There is mild right and severe left neural foraminal narrowing. IMPRESSION: Multilevel lumbar degenerative change is present, with multilevel canal stenosis and neural foraminal narrowing as described. Complex left renal cyst as described, would consider renal protocol CT for further evaluation. Reviewed, Interpreted and Dictated by Jacqui Orozco MD Transcribed by Skylar Schmidt Authenticated and [facility] Assessment and Plan *Assessment and plan (1) Degenerative disc disease, lumbar: Status: Acute Category: Medical Code(s): M51.36 - Other intervertebral disc degeneration, lumbar region (2) Lumbar radiculopathy: Status: Acute Category: Medical Code(s): M54.16 - Radiculopathy, lumbar region (3) Lumbar spinal stenosis: Status: Acute Qualifiers: Neurogenic claudication status: with neurogenic claudication Qualified Code(s): M48.062 - Spinal stenosis, lumbar region with neurogenic claudication Category: Medical Code(s): M48.061 - Spinal stenosis, lumbar region without neurogenic claudication (4) Left leg pain: Status: Acute Category: Medical Code(s): M79.605 - Pain in left leg Plan Patient is experiencing worsening pain throughout her low back and left leg. Patient does have symptoms consistent with spinal stenosis with neurogenic claudication symptoms. Patient has tried oral medications, heat, current physical therapy and continued at home stretching exercise for longer than 4 weeks. I did discuss with the patient that she may benefit from a lumbar epidural due to her limited range of motion of her lumbar spine and worsening numbness down her extremity. Risk and benefits were discussed with the patient and she would like to proceed forward with this plan of care. Patient will be scheduled for an LESI L4-L5 under fluoroscopy. Patient has been instructed to contact the clinic with any concerns before the next appointment. Dr. Felton has reviewed this note and agrees with this plan of care. This note was dictated using voice recognition software and make contain errors or omissions. All injections are used with Lidocaine or Bupivacaine and Depo Medrol.
[2023-12-15 09:29] VITALS: BP 146/67; PULSE 73; RESP 18; O2SAT 96; BMI 23.8
== END 2023-12-15 23:59 | disposition home or self-care (01) ==
LOC: SC.PAIN 08:52
PROVIDERS: PCP Family Medicine; Visit Provider Nurse Practitioner Family
DX: M48.062 Spinal stenosis, lumbar region with neurogenic claudication; M79.605 Pain in left leg; M51.16 Intervertebral disc disorders with radiculopathy, lumbar region; Z87.891 Personal history of nicotine dependence; Z73.89 Other problems related to life management difficulty; Z79.899 Other long term (current) drug therapy
CPT/HCPCS: 99202; G0463

== ENCOUNTER 2023-12-24 09:00 | Outpatient (RCR) | payer MEDICARE, SELFPAY ==
--- NOTE | 2023-11-05 10:55 | HMH.PTOPEV ---
PT Outpatient Evaluation Rehab PT Outpatient Evaluation Start: 11/05/23 10:01 Freq: Status: Active Protocol: Document 11/05/23 10:01 PDESEROUX (Rec: 11/05/23 10:55 PDESEROUX Desktop) E-signed By Joe August, PT Outpatient Therapy Subjective History Subjective History Pt. is a 83 year old female who presents to [facility] Outpatient Physical Therapy Services in [place] for the initial evaluation this date( 11/05/23) w/ c/o acute and intermittent L-sided lumbar and LLE hip/leg P!, numbness, and tingling of insidious onset 3 weeks ago. Pt. describes symptoms as a shooting P! and tingling that radiates posterior LLE buttock to foot and digits that will got to sleep the longer she is on her feet. Pt. reports having symptom relief w/ sitting and laying down. Pt. reports having no symptom relief w/ prescribed Prednisone. Recent diagnostic imaging(radiograph) indicates OA per pt. report. Pt. reports she is currently scheduled for an MRI of the lumbar spine and LLE hip on 11/12/23. Pt. to [facility] [place] for results after MRI. Pt. denies having any injections for current complaint, denies having any saddle paresthesia nor bowel/ bladder dysfunction at this time. Pt. reports, I can't even was a load of dishes because it hurts so bad. Pt. also reports having difficulty w/ prolonged walking and standing secondary to an increase in symptomatic P!. See chart for list of current medications. PMH includes thyroidectomy secondary to cancer, HTN, hysterectomy, cholecystectomy. New diagnosis of cancer in past 12 No months? Chief Complaint Pain,Gives out/Unstable, Paresthesia,Weakness Symptom Type Ache,Throb,Sharp,Stabbing, Numbness,Tingling,Shooting Symptoms Relieved By Rest/Positioning,OTC Meds Symptoms Aggravated By Supine,Standing,Physical Activity,Twisting,Walking, Lifting Prior Functional Limitations None Current Functional Limitations Lifting,Housework,Standing, Squatting,Walking,Stairs Symptom Description Intermittent,Activity Dependent Level of pain today (0-10) 0 Pain scale - at its best (0-10) 0 Pain scale - at its worst (0-10) 7 Lumbopelvic Eval Posture Thoracic Spine Posture Standing Position Increased Kyphosis Lumbar Spine Posture Standing Position Flexed Assistive device Assistive Devices None / NA Gait Observation General Gait Pattern Observation Antalgic Gait,Decrease Weight Bear (L),Decrease Stride Lngth (R) Palapation tenderness left lumbar spinal tenderness Yes: L5/S1 buttock tenderness Yes: piriformis, greater trochanter, IT band, glute med . Lumbar/Sacral Palpation Findings Tenderness Lumbar/Sacral Palpation Overall Comment grade 4 +TTP Accessory Movement L-spine Vertebrae Accessory Movements Central P/A Archer,Left P/A that Elicit Symptoms Archer L5 left S1 left Range of Motion Lumbar Spine Active Flexion Range of 71 Motion (degrees) Lumbar Spine Active Extension Range of 7 Motion (degrees) Left Lumbar Spine Lateral Flexion Active 17 Range of Motion (degrees) Right Lumbar Spine Lateral Flexion 18 Active Range of Motion (degrees) Lumbar Spine ROM Limitations Soft Tissue Tightness,Pain Manual Muscle Test Left Knee Extension Strength Grade 4 Good Knee Flexion Strength Grade 4 Good Hip Flexion Strength Grade 4 Good Hip Abduction Strength Grade 4 Good Hip Adduction Strength Grade 4 Good Hip External Rotation Strength Grade 4 Good Hip Internal Rotation Strength Grade 4 Good Hip Extension Strength Grade 4 Good Gluteus Fermin Strength Grade 4 Good Extensor Hallucis Longus Strength Grade 5 Normal Ankle Dorsiflexion Strength Grade 5 Normal Gastronemius/Soleus Strength Grade 5 Normal DTR Rt Patellar 2+ Lt Patellar 2+ Rt Gastroc/Soleus 0 Lt Gastroc/Soleus 0 Altered Sensation Left LE Dermatome Level L1,L4,L5,S1 Comment decreased light touch discrimination in above patterns of LLE compared to RLE Special Tests Lumbar Spine Screen Positive Sciatic Nerve Tension Test Positive Left Hip 90-90 Straight Leg Raise Test Positive Left Lumbar Long [place] Distraction Test/Manual Positive Traction Outpatient Therapy Assessment Impairments Problems/Impairmments Palpation Tenderness,Impaired Range of Motion,Impaired Strength,Impaired Transfers, Impaired Gait Pattern,Impaired Walking,Impaired Standing, Impaired Lifting,Impaired Household Care,Impaired Stair Climbing,Subjective C/O Pain, Impaired Self Care/Self Management Prognosis Rehab Potential Good Comment w/ HEP compliancy Clinical Impression Consistent with Diagnosis Yes Consistent with lumbar radiculopathy, L, DDD Short Term Goals Number of Weeks 2 Decreased Palpation Tenderness Yes: grade 1-2 +TTP to TTP assessment above Decrease Subjective C/O Pain Yes: worse:09/04 Patient to be Ind w/ HEP Yes Custodial Goals Number of Weeks 4-6 Decreased Palpation Tenderness Yes: grade 1 +TTP to TTP assessment above Increase Range of Motion Yes: lumbar spine AROM >85-90% norms grossly Increase Strength Yes: 4+ to 5/5 LLE MMT scores grossly w/o difficulty Improve Transfers Yes: Pt. will be able to stand up from a seated position w/o difficulty Improve Gait Pattern without Assistive Yes Device Increase Ability to Walk Yes Increase Ability to Stand Yes Improve Ability For Household Care Yes: Pt. will be able to stand and wash dishes for 5 minutes w/o difficulty. Improve Ability to Climb Stairs Yes: Pt. will be able to ascend stairs w/o difficulty. Improve Oswestry Score Yes Decrease Subjective C/O Pain Yes: worse:-06/07 Patient to be Ind w/ Advanced HEP Yes Outpatient Therapy Plan of Care Treatment Plan May Include Therapeutic Exercise Including Home Yes Exercise Program Manual Therapy Techniques Yes Neuromuscular Re-education Yes Therapeutic Activities to Return to Yes Previous Functional/Work Level Gait Training Yes ADL/Self Care Education Yes Mechanical Traction Yes Thermal Modalities Yes Electrical Stimulation Yes Ultrasound/Phonophoresis Yes Iontophoresis Yes Vasopneumatic Compression Pump Yes Massage Yes Eval/Re-Eval Yes Frequency Times per week 2 Duration Number of Weeks 4-6 Addendums This patient is a candidate for social No or vocational rehab? Patient/Guardian verbally acknowledges Yes understanding of treatment program and consents to further treatment? Patient/Guardian verbally acknowledges Yes understanding of diagnosis, prognosis and goals for treatment? Eval Complexity PT Charges 50323 - Low Complexity Shoulder/Elbow Eval Shoulder Objective Measurements Elbow Objective Measurements PHYSICIAN CERTIFICATION: I certify the specified therapy services for [place] are required, authorized, and reviewed every 30 days.
== END 2023-12-31 07:55 | disposition home or self-care (01) ==
LOC: PT 09:00
PROVIDERS: Visit Provider Nurse Practitioner Family
DX: M79.605 Pain in left leg (principal); M25.552 Pain in left hip; M51.37 Other intervertebral disc degeneration, lumbosacral region
CPT/HCPCS: 97110; 97140; 97163; 97164; 97530

== ENCOUNTER 2023-12-30 10:51 | Day surgery (SDC) | payer MEDICARE, SELFPAY ==
[2023-12-30 11:12] VITALS: BP 161/79; PULSE 70; RESP 16; TEMP 36.3; O2SAT 95; BMI 23.8
[2023-12-30 11:37] VITALS: BP 152/64; PULSE 72; RESP 16; O2SAT 95
[2023-12-30 11:41] VITALS: BP 172/66; PULSE 69; RESP 18; O2SAT 94
[2023-12-30] MEDS: methylPREDNISolone ACETATE 80MG/ML VIAL 80 MG (11:41)
[2023-12-30 11:44] VITALS: BP 172/66; PULSE 69; RESP 18; O2SAT 94
--- NOTE | 2023-12-30 11:59 | EXP.PAIN.PRO ---
Procedure Date: 12/30/23 Time: 11:35 Anesthesiologist:: Joe Dubon CRNA Complications:: None Pre-procedure Diagnosis:: Degenerative disc lumbar spine multilevels. Lumbar radiculopathy. Post-procedure Diagnosis:: Same. Indications for Procedure:: Patient is a very pleasant 83-year-old female comes our clinic today for repeat lumbar epidural steroid injection at the L4-5 level. Patient reports significant improvement with previous injection at the same level. She reports low lumbar back pain as well as bilateral hip and leg radicular symptoms. She rates her pain 10/10. Procedure Details:: Procedure: Lumbar epidural steroid injection under fluoroscopy Informed consent was obtained and the risks and benefits of the procedure were explained to the patient. The patient was taken to the procedure room and noninvasive monitors placed, including noninvasive blood pressure cuff and pulse oximeter. The back was viewed using C-arm Fluoroscopy and prepped using Chloraprep as a cleansing solution and the L4-L5 interspace was palpated. Skin and subcutaneous tissues were anesthetized using lidocaine 1.5% and a 25-gauge needle. After this, an 18-gauge Touhy epidural needle was placed into the L4-L5 interspace and advanced using fluoroscopic guidance and loss of resistance to air until the epidural space was encountered. After confirmation of needle placement in the epidural space, with dye, a solution containing normal saline, 3 mL and Depo-Medrol 80 mg were incrementally injected into the lumbar epidural space. The patient tolerated the procedure well with no complications. The patient was observed in the Pain Clinic and then discharged home neurologically intact. Plan and Disposition:: Patient was discharged without incident.
== END 2023-12-30 11:38 | disposition home or self-care (01) ==
LOC: SC.PAINP 10:52
PROVIDERS: PCP Family Medicine; Visit Provider Nurse Anesthetist, Certified Registered
DX: M51.16 Intervertebral disc disorders with radiculopathy, lumbar region (principal)
CPT/HCPCS: 62323; J1010

== ENCOUNTER 2024-01-21 14:04 | Outpatient (POV) | payer MEDICARE, SELFPAY ==
[2024-01-21 14:50] VITALS: BP 154/74; PULSE 65; RESP 18; O2SAT 93; BMI 24.5
--- NOTE | 2024-01-21 14:50 | A.OFFVIS_ITS ---
[facility] Disclaimer: The information contained in this section may have been updated after the patient was seen, as this information can be updated by other users. Medical History Anxiety Thyroid cancer Hypertension Surgical History Hx of fracture of wrist H/O parathyroidectomy History of cholecystectomy History of hysterectomy H/O thyroidectomy Family History Father Cancer Mother Coronary artery disease Brother Diabetes Cancer Social History Smoking Status: Former smoker alcohol intake: never substance use type: denies use current occupational status: retired Travel in the last 8 weeks: None housing: house lives independently: No PM Subjective & Objective Subjective Subjective:: Patient is a pleasant 84-year-old female who presents today for follow-up of lumbar epidural steroid injection L4-L5 on 12/30/2023. Patient rates her pain today a 2 out of 10 and denies any new trauma or injury. She states that she has had at least 60% improvement if not more following this injection. She feels like she has been able to move around easier with overall improved function and can even mop around her house. Patient states that she does still have some pain but it is much more manageable. Her Teddy has been reviewed and is appropriate. Review of Systems: General: No recent weight changes, no fever, no sleep disturbances Respiratory: No cough, no shortness of air, no recurring pulmonary infections Cardiovascular/peripheral vascular: No chest pain, no palpitations, no edema, no shortness of breath Gastrointestinal: No new onset incontinence, normal bowel movements reported Genitourinary: No new onset incontinence Musculoskeletal: Low back pain Psychiatric: [Normal mood/affect] Neurological: [Denies weakness in extremities], [denies balance issues] Pain at rest (0-10 scale): 2 Objective Objective:: Physical Exam: General: Alert and oriented x3, no acute distress, pleasant and cooperative Lungs: Respirations even and unlabored, symmetrical chest expansion Eyes: PERRL Musculoskeletal: Flexion and extension of lumbar [spine] somewhat guarded secondary to pain, [antalgic gait noted] Neurological: Speech clear, no gross sensory deficit Has patient had previous pain injection?: Yes Percent improvement in pain since last injection: 60% or more Conservative treatment options previously tried: Home exercise plan Length of treatment: Longer than 6 weeks Meds Home Medications and Allergies Home Medications ?Medication ?Instructions ?Recorded ?Confirmed ?Type acetaminophen 325 mg capsule 325 mg PO QID PRN Pain 01/15/22 12/30/23 History calcitriol 0.25 mcg capsule 0.25 mcg PO DAILY 01/15/22 12/30/23 History multivitamin 1 tab PO DAILY 01/15/22 12/30/23 History amiloride 5 mg tablet 10 mg PO DAILY 12/27/22 12/30/23 History brinzolamide 1 %-brimonidine 0.2 % 1 drp Eye-Left BID 12/27/22 12/30/23 History eye drops,suspension (Simbrinza) calcium carbonate See Rx Instructions PO BID 12/27/22 12/30/23 History levothyroxine 150 mcg tablet 150 mcg PO DAILY hypothyroidism 12/27/22 12/30/23 History magnesium 200 mg tablet 400 mg PO DAILY 12/27/22 12/30/23 History nifedipine 60 mg tablet,extended 60 mg PO DAILY HTN 04/03/23 12/30/23 History release vandetanib 100 mg tablet (Caprelsa) 200 mg PO DAILY thyroid cancer 04/03/23 12/30/23 History aspirin 81 mg tablet,delayed 81 mg PO DAILY 09/29/23 12/30/23 History release (Sayra Low Dose Aspirin) omeprazole 40 mg capsule,delayed 40 mg PO DAILY GERD 90 days #90 10/20/23 12/30/23 Rx release caps hydrochlorothiazide 12.5 mg tablet 12.5 mg PO DIRECTED Fluid 11/21/23 12/30/23 History valsartan 80 mg tablet 80 mg PO DAILY 11/21/23 12/30/23 History escitalopram oxalate 10 mg tablet 10 mg PO DAILY #90 tabs 12/25/23 12/30/23 Rx New Prescriptions to Start Prescriptions: Allergies Allergy/AdvReac Type Severity Reaction Status Date / Time amoxicillin [From AUGMENTIN] Allergy Mild VOMITING Verified 12/30/23 11:12 clavulanic acid Allergy Mild VOMITING Verified 12/30/23 11:12 [From AUGMENTIN] Assessment and Plan *Assessment and plan (1) Lumbar radiculopathy: Status: Acute Category: Medical Code(s): M54.16 - Radiculopathy, lumbar region (2) Degenerative disc disease, lumbar: Status: Acute Category: Medical Code(s): M51.36 - Other intervertebral disc degeneration, lumbar region Plan Patient has had significant improvement following her lumbar epidural injection and does not require any additional injection therapy at this time. Patient will return to clinic in 1 month for reevaluation of symptoms and plan of care. Patient has been instructed to contact the clinic with any concerns before the next appointment. Dr. Felton has reviewed this note and agrees with this plan of care. This note was dictated using voice recognition software and make contain errors or omissions. All injections are used with Lidocaine or Bupivacaine and Depo Medrol.
== END 2024-01-21 23:59 | disposition home or self-care (01) ==
LOC: SC.PAIN 14:05
PROVIDERS: PCP Family Medicine; Visit Provider Nurse Practitioner Family
DX: M51.16 Intervertebral disc disorders with radiculopathy, lumbar region (principal); Z87.891 Personal history of nicotine dependence
CPT/HCPCS: 99212; G0463

== ENCOUNTER 2024-02-05 06:25 | Observation (INO) | payer MEDICARE, SELFPAY ==
[2024-02-05] VITALS (10 sets, daily range): BP systolic 117–197; BP diastolic 66–98; PULSE 59–82; RESP 13–27; TEMP 36.4–37.7; O2SAT 85–97; BMI 23.8; BMI 24.8
--- NOTE | 2024-02-05 06:36 | CT_ITS ---
PROCEDURE INFORMATION: Exam: CT Head Without Contrast Exam date and time: 02/05/2024 6:56 AM Age: 84 years old Clinical indication: Stroke-like symptoms; Headache and vomiting; Additional info: Sudden HOOKER now vomiting TECHNIQUE: Imaging protocol: Computed tomography of the head without contrast. Radiation optimization: All CT scans at this facility use at least one of these dose optimization techniques: automated exposure control; mA and/or kV adjustment per patient size (includes targeted exams where dose is matched to clinical indication); or iterative reconstruction. Other technique: STROKE PROTOCOL was implemented. COMPARISON: CT SOFT TISSUE NECK W CON 08/13/2023 8:16 AM FINDINGS: Brain: Moderately advanced chronic microvascular ischemic disease without acute intraparenchymal hemorrhage and no obvious acute ischemic stroke. No intra-or extra-axial fluid collection, no supra-or infratentorial mass, no mass effect or midline shift. Cerebral ventricles: Dilated ventricles, sulci and basal cisterns due to generalized atrophy/chronic ischemic changes without evidence of hydrocephalus. Paranasal sinuses: Mild chronic mucoperiosteal thickening in the visualized paranasal sinuses. Mastoid air cells: Trace mastoid effusion. Bones: Visualized skull bones are grossly normal. Soft tissues: NA IMPRESSION: 1. Moderately advanced chronic microvascular disease and generalized atrophy without acute intracranial abnormality. 2. No evidence of acute hemorrhage, mass lesion or obvious acute ischemic infarction. COMMENT: Possibility of early and/or small acute/subacute ischemic infarct cannot be excluded on a CT scan. Recommend followup with MRI if persistent/worsening focal neurological deficits. ASSESSMENT: ASPECTS ([place] Stroke Program Early CT Score) is 10.
--- NOTE | 2024-02-05 06:38 | CT_ITS ---
PROCEDURE INFORMATION: Exam: CTA Neck With Contrast Exam date and time: 02/05/2024 7:00 AM Age: 84 years old Clinical indication: Stroke-like symptoms; Headache and vomiting; Additional info: Severe HOOKER w/ vomiting HTN dizziness TECHNIQUE: Imaging protocol: Computed tomographic angiography of the neck with contrast. Exam focused on the cervical segments of the vasculature. 3D rendering (Not supervised by radiologist): MIP and/or 3D reconstructed images were created by the technologist. Radiation optimization: All CT scans at this facility use at least one of these dose optimization techniques: automated exposure control; mA and/or kV adjustment per patient size (includes targeted exams where dose is matched to clinical indication); or iterative reconstruction. Contrast material: ISOUVE 370; Contrast volume: 100 ml; Contrast route: INTRAVENOUS (IV); COMPARISON: CT SOFT TISSUE NECK W CON 08/13/2023 8:16 AM FINDINGS: Thoracic Vessels: Atherosclerotic disease of the visualized aortic arch without aortic aneurysm or dissection. Enlarged main, right and left pulmonary arteries with the main pulmonary artery measuring 3.8 cm suggestive of pulmonary arterial hypertension. Low origin of the left vertebral artery from the aortic arch/proximal LEFT subclavian artery (normal variant). No significant narrowing at the origin of the neck vessels. . Common Carotid Arteries: Common carotid arteries are without acute flow limiting stenosis. . Cervical Internal Carotid Arteries: No acute flow-limiting stenosis of the cervical internal carotid arteries. No evidence of an aneurysm or a dissection. . Vertebral Arteries: Cervical vertebral arteries are without acute flow limiting stenosis. . Other Structures: Chronic degenerative changes in the visualized spine and shoulder joint(s). Dilated cervicothoracic esophagus distended with air/debris suggestive of reflux disease/esophagitis. IMPRESSION: NO acute flow-limiting stenosis, no occlusion, aneurysm or dissection of the carotid and vertebral arteries in the neck. REFERENCES: NASCET CRITERIA. The degree of stenosis in the cervical segment of the internal carotid artery is based on NASCET criteria. Normal is no stenosis. Mild is less than 50% stenosis. Moderate is 50-69% stenosis. Severe is 70% to 99% stenosis. Total occlusion is no detectable patent lumen.
--- NOTE | 2024-02-05 06:38 | CT_ITS ---
PROCEDURE INFORMATION: Exam: CTA Head With Contrast, Arteriography Exam date and time: 02/05/2024 7:00 AM Age: 84 years old Clinical indication: Stroke-like symptoms; Vomiting; Generalized numbness/paresthesia; Additional info: Severe HOOKER w/ vomiting HTN dizziness TECHNIQUE: Imaging protocol: Computed tomographic angiography of the head with contrast. Exam focused on the arteries. 3D rendering (Not supervised by radiologist): MIP and/or 3D reconstructed images were created by the technologist. Radiation optimization: All CT scans at this facility use at least one of these dose optimization techniques: automated exposure control; mA and/or kV adjustment per patient size (includes targeted exams where dose is matched to clinical indication); or iterative reconstruction. Contrast material: ISOVUE 370; Contrast volume: 100 ml; Contrast route: INTRAVENOUS (IV); COMPARISON: CT HEAD/BRAIN WO CON 02/05/2024 6:56 AM FINDINGS: ANTERIOR CIRCULATION: Intracranial internal carotid arteries: Mild to moderate chronic predominantly calcific plaque in the mid-distal ICA resulting in chronic narrowing without acute flow-limiting stenosis. Middle cerebral arteries: M1, M2 and their distal visualized branches are without acute flow limiting stenosis. Anterior cerebral arteries: A1, A2 and their distal visualized branches are without acute flow limiting stenosis. Anterior communicating artery is unremarkable. . POSTERIOR CIRCULATION: Vertebral arteries: Intracranial vertebral arteries and their visualized branches are without acute flow limiting stenosis. Basilar artery: The basilar artery and its visualized proximal branches are without acute flow limiting stenosis. Posterior cerebral arteries: P1, P2 and their distal visualized branches are without acute flow limiting stenosis. IMPRESSION: NO acute flow-limiting stenosis or large vessel occlusion. COMMENT: Recommend followup with MRI if persistent/new/worsening symptoms or symptoms unexplained by the current study.
[2024-02-05] MEDS: HYDRALAZINE 20MG/ML VIAL 10 MG IV (06:42)
[2024-02-05] MEDS: ONDANSETRON 4MG/2ML VIAL 4 MG IV (06:42)
--- NOTE | 2024-02-05 07:05 | PC.NURSE ---
patient decon prior to CT
[2024-02-05 07:10] LABS: Albumin Level 4.4 g/dl (3.5-5.0); Chloride 94 mmol/L (98-107); Sodium 135 mmol/L (136-145)
[2024-02-05] MEDS: IOPAMIDOL-370 (76%);100ML BOTTLE 100 ML IV (07:10)
[2024-02-05] MEDS: SODIUM CHLORIDE 0.9% 10ML SYR (RAD ONLY) 10 ML IV (07:11)
[2024-02-05] MEDS: 0.9 % SODIUM CHLORIDE 50 ML VIAL IV (07:11)
[2024-02-05 07:13] LABS: Alanine Aminotransferase 23 U/L (12-78); Albumin/Globulin Ratio 1.3 (1.1-1.8); Alkaline Phosphatase 96 U/L (38-126); Anion Gap 13.9 mEq/L (5-15); Aspartate Amino Transferase 24 U/L (14-36); Bilirubin,Total 0.6 mg/dl (0.2-1.3); Blood Urea Nitrogen 18 mg/dl (7-17); Carbon Dioxide 30 mmol/L (22.0-30.0); Creatinine Clearance Estimated 40 mL/min (50-200); Estimated Glomerular Filt Rate 69 ml/min (>60); GFR (African American) 83 ML/MIN (>60); Globulin 3.4 g/dL (1.3-3.2); Total Protein,Serum 7.8 g/dl (6.3-8.2)
[2024-02-05 07:14] LABS: Calcium 8.5 mg/dl (8.4-10.2); Glucose 162 mg/dl (74-100)
[2024-02-05 07:19] LABS: INR 0.92 (0.9-1.1); Prothrombin Time 10.4 seconds (10.1-12.5)
--- NOTE | 2024-02-05 07:21 | ED_ITS ---
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 by RN): severe headache began at 0300. pt feeling nauseated as well. pt denies anyother symptoms History of Present Illness HPI narrative: 84-year-old female with history of hypertension presents to the ER complaining of severe headache all over the head that began at 3 AM. Patient reports that suddenly woke her up from sleep, it was not thunderclap in nature and has progressively worsened since its onset. Patient states she has been taking all of her home medications as prescribed, she has not missed any doses. Patient reported feeling nauseous and having vomiting with EMS. Patient denies abdominal pain, diarrhea, constipation, chest pain, difficulty breathing, numbness, tingling, weakness. She does report mild dizziness. Denies dysuria, hematuria. Related Data Home Medications ?Medication ?Instructions ?Recorded ?Confirmed calcitriol 0.25 mcg capsule 0.5 mcg PO DAILY 01/15/22 02/05/24 multivitamin 1 tab PO DAILY 01/15/22 02/05/24 nifedipine 60 mg tablet,extended 60 mg PO BID 04/03/23 02/05/24 release aspirin 81 mg tablet,delayed 81 mg PO DAILY 09/29/23 02/05/24 release (Sayra Low Dose Aspirin) hydrochlorothiazide 12.5 mg tablet 12.5 mg PO DAILY 11/21/23 02/05/24 valsartan 80 mg tablet 80 mg PO DAILY 11/21/23 02/05/24 levothyroxine 112 mcg tablet 112 mcg PO DAILY 02/05/24 02/05/24 levothyroxine 50 mcg tablet 50 mcg PO DAILY 02/05/24 02/05/24 omeprazole 40 mg capsule,delayed 40 mg PO DAILY 02/05/24 02/05/24 release torsemide 10 mg tablet 10 mg PO DAILY 02/05/24 02/05/24 vandetanib 100 mg tablet (Caprelsa) 200 mg PO DAILY 02/05/24 02/05/24 Previous Rx's ?Medication ?Instructions ?Recorded escitalopram oxalate 10 mg tablet 10 mg PO DAILY #90 tabs 12/25/23 Allergies Allergy/AdvReac Type Severity Reaction Status Date / Time amoxicillin [From AUGMENTIN] Allergy Mild VOMITING Verified 12/30/23 11:12 clavulanic acid Allergy Mild VOMITING Verified 12/30/23 11:12 [From AUGMENTIN] PFSH <Estela Albarado MD - Last Filed: 02/05/24 07:30> [facility] Disclaimer: The information contained in this section may have been updated after the patient was seen, as this information can be updated by other users. Medical History Anxiety Thyroid cancer Hypertension Surgical History Hx of fracture of wrist H/O parathyroidectomy History of cholecystectomy History of hysterectomy H/O thyroidectomy Family History Father Cancer Mother Coronary artery disease Brother Diabetes Cancer Social History Smoking Status: Never smoker alcohol intake: never substance use type: denies use current occupational status: retired Travel in the last 8 weeks: None housing: house lives independently: No Other Medical History Have you received the Flu Vaccine for this season: Yes Have you received the Pneumonia Vaccine: No <Estela Albarado MD - Last Filed: 02/05/24 07:30> ROS Obtained: Yes All systems reviewed & no additional complaints except as documented Positive ROS per HPI Physical Exam <Estela Albarado MD - Last Filed: 02/05/24 07:30> General General appearance: alert and in no apparent distress Head Head exam: atraumatic and normocephalic Eye Eye exam: Present PERRL and EOMI; Absent scleral icterus, conjunctival injection or nystagmus ENT ENT exam: Present mucous membranes moist Neck Neck exam: Present normal inspection and full ROM Chest Chest inspection: Present symmetric chest wall rise Respiratory Respiratory exam: Present normal lung sounds bilaterally; Absent respiratory distress, wheezes or stridor Cardiovascular Cardiovascular exam: Present regular rate and normal rhythm Abdominal Exam Abdominal exam: Present soft and other (Patient had 1 episode of nonbilious, nonbloody emesis in the ER); Absent distention, tenderness, guarding or rebound Extremities Exam Extremities exam: Present full ROM Neurological Exam Neurological exam: Present alert, oriented X3 and CN II-XII intact; Absent motor sensory deficit (NIH 0) Psychiatric Psychiatric exam: Present normal affect and normal mood Skin Skin exam: Present warm and dry Medical Decision Making <Estela Albarado MD - Last Filed: 02/05/24 07:30> Medical Records Medical records reviewed: Yes I reviewed the patient's medical records. Screening: Per USPSTF and CDC recommendations, given the prevalence of disease in our region, it is our hospital?s policy to screen for HIV and viral Hepatitis for all patients aged 18 and over and those with ongoing risk factors. MR Comment: Most recent visit in our system was with pain management for reevaluation after lumbar epidural steroid injection. At that time she reportedly had significant improvement of her symptoms and did not require additional therapy at that time. Teddy Inquiry Pt receiving controlled substance: No Vital Signs: 02/05/24 06:25 02/05/24 07:11 02/05/24 07:31 Temperature 97.6 F Temperature Source Oral Pulse Rate 73 77 Pulse Rate [Right] 73 Respiratory Rate 18 24 27 H Blood Pressure 133/87 136/80 Blood Pressure [Right Arm] 197/98 H Blood Pressure Mean Blood Pressure Mean [Right Arm] 131 02 Sat by Pulse Oximetry 92 L 96 94 L Oxygen Delivery Method Room Air Oxygen Flow Rate (LPM) 02/05/24 08:01 02/05/24 08:01 02/05/24 09:01 Temperature Temperature Source Pulse Rate 82 Pulse Rate [Right] Respiratory Rate 16 15 13 Blood Pressure 171/81 H 189/79 H Blood Pressure [Right Arm] Blood Pressure Mean 111 Blood Pressure Mean [Right Arm] 02 Sat by Pulse Oximetry 85 L 92 L 96 Oxygen Delivery Method Room Air Nasal Cannula Oxygen Flow Rate (LPM) 2 02/05/24 09:07 Temperature 98.2 F Temperature Source Pulse Rate 78 Pulse Rate [Right] Respiratory Rate 22 Blood Pressure 168/79 H Blood Pressure [Right Arm] Blood Pressure Mean Blood Pressure Mean [Right Arm] 02 Sat by Pulse Oximetry Oxygen Delivery Method Nasal Cannula Oxygen Flow Rate (LPM) 2 Lab Data Lab Results 02/05/24 06:33: WBC 11.4 H, RBC 5.15, Hgb 15.3, Hct 47.2 H, MCV 91.6, MCH 29.6, MCHC 32.3, RDW 15.0, Plt Count 342, MPV 7.7, Neut % (Auto) 71.7, Lymph % (Auto) 21.2, [place] % (Auto) 4.2, Eos % (Auto) 2.1, Baso % (Auto) 0.7, Neut # (Auto) 8.2 H, Lymph # (Auto) 2.4, [place] # (Auto) 0.5, Eos # (Auto) 0.2, Baso # (Auto) 0.1, PT 10.4, INR 0.92, Sodium 135 L, Potassium 2.9 L*, Chloride 94 L, Carbon Dioxide 30, Anion Gap 13.9, BUN 18 H, Creatinine 0.80, Estimated Creat Clear 40, Estimated GFR 69, Est GFR ( Amer) 83, Glucose 162 H, Calcium 8.5, Total Bilirubin 0.6, AST 24, ALT 23, Alkaline Phosphatase 96, NT-Pro-B Natriuret Pep 257, Total Protein 7.8, Albumin 4.4, Globulin 3.4 H, Albumin/Globulin Ratio 1.3 02/05/24 07:57: SARS-CoV-2 (PCR) Not detected, Influenza A Untype (PCR) Not detected, Influenza Type B (PCR) Not detected 02/05/24 06:33 02/05/24 06:33 Orders (Tests/Meds): ED MEDICATIONS Generic Name Dose Route Start Last Admin Trade Name Elderq PRN Reason Stop Dose Admin Potassium Chloride/Water 100 mls @ 100 mls/hr 02/05/24 07:39 02/05/24 07:53 Potassium Chloride 10meq/100ml Ivpb IV 02/05/24 09:38 100 mls/hr Q1H GUNNER Administration Ceftriaxone Sodium 1 gm/ 50 mls @ 100 mls/hr 02/05/24 09:00 02/05/24 09:05 Sodium Chloride IV 02/05/24 09:29 Not Given ONCE ONE Irbesartan 75 mg 02/05/24 09:15 Irbesartan 75mg Tablet PO 03/06/24 09:14 DAILY GUNNER Levothyroxine Sodium 150 mcg 02/05/24 09:15 Levothyroxine 150mcg (0.15mg)Tab PO 03/06/24 09:14 DAILYDM GUNNER Nifedipine 60 mg 02/05/24 09:15 Nifedipine Xl 30mg Tablet PO 03/06/24 09:14 DAILY GUNNER Sodium Chloride 10 ml 02/05/24 09:10 Sodium Chloride 0.9% 10ml Flush Syringe IV 03/06/24 09:09 NEEDED PRN Maintain IV Site Discontinued Medications Generic Name Dose Route Start Last Admin Trade Name Alexander PRN Reason Stop Dose Admin Acetaminophen 500 mg 02/05/24 07:27 02/05/24 08:53 Acetaminophen 500mg Tab PO 02/05/24 07:28 500 mg ONCE ONE Administration Ceftriaxone Sodium 1 gm 02/05/24 08:49 02/05/24 08:56 Ceftriaxone 1gm Vial IV 02/05/24 08:50 Not Given ONCE ONE Dexamethasone 10 mg 02/05/24 07:40 02/05/24 08:53 Dexamethasone 4mg Tablet PO 02/05/24 07:41 10 mg ONCE ONE Administration Furosemide 40 mg 02/05/24 09:07 Furosemide 40mg/4ml Vial IV 02/05/24 09:08 ONCE ONE Hydralazine HCl 10 mg 02/05/24 06:37 02/05/24 06:42 Hydralazine 20mg/Ml Vial IV 02/05/24 06:38 10 mg ONCE ONE Administration Magnesium Sulfate 2 gm in 50 mls @ 50 mls/hr 02/05/24 07:40 02/05/24 07:53 Magnesium Sulfate 2gm/50ml Premix IV 02/05/24 08:39 50 mls/hr ONCE ONE Administration Iopamidol 100 ml 02/05/24 07:09 02/05/24 07:10 Iopamidol-370 (76%);100ml Bottle IV 02/05/24 07:10 100 ml ONCE ONE Administration Ketorolac Tromethamine 15 mg 02/05/24 07:40 02/05/24 07:54 Ketorolac 30mg/Ml Vial IV 02/05/24 07:41 15 mg ONCE ONE Administration Ondansetron HCl 4 mg 02/05/24 06:37 02/05/24 06:42 Ondansetron 4mg/2ml Vial IV 02/05/24 06:38 4 mg ONCE ONE Administration Potassium Chloride 60 meq 02/05/24 07:39 02/05/24 08:52 Potassium Chloride 20meq Tab PO 02/05/24 07:40 60 meq ONCE ONE Administration Prochlorperazine Edisylate 10 mg 02/05/24 07:48 02/05/24 07:54 Prochlorperazine 10mg/2ml Vial IV 02/05/24 07:49 10 mg ONCE ONE Administration Sodium Chloride 50 ml 02/05/24 07:09 02/05/24 07:11 0.9 % Sodium Chloride 50 Ml Vial IV 02/05/24 07:10 50 ml ONCE ONE Administration Sodium Chloride 10 ml 02/05/24 07:09 02/05/24 07:11 Sodium Chloride 0.9% 10ml Syr (Rad Only) IV 03/06/24 07:08 10 ml NEEDED PRN Administration Maintain IV Site ORDERS Category Date Time Status CT angio head Stat Cat Scan 02/05/24 06:[address] angio neck Stat Cat Scan 02/05/24 06:[address] head/brain wo con Stat Cat Scan 02/05/24 06:36 Completed CXR --portable [XR chest portable] Stat Exams 02/05/24 08:12 Completed Basic Metabolic Panel Routine Lab 02/05/24 14:00 Ordered CBC w/Auto Diff [Complete Blood Count Auto Diff] Stat Lab 02/05/24 06:33 Completed CMP [Comprehensive Metabolic Panel] Stat Lab 02/05/24 06:33 Completed Complete Blood Count Auto Diff AMLAB Lab 02/06/24 06:00 Ordered Comprehensive Metabolic Panel AMLAB Lab 02/06/24 06:00 Ordered HIV (1&2) Antibody Rapid Stat Lab 02/05/24 06:33 Received Hep C Ab with Reflex to RNA Stat Lab 02/05/24 06:33 Received Magnesium AMLAB Lab 02/06/24 06:00 Ordered NT Pro Brain Natriuretic Pep. Stat Lab 02/05/24 06:33 Completed PT INR [Prothrombin Time INR] Stat Lab 02/05/24 06:33 Completed Rapid PCR Covid and Flu A/B Stat Lab 02/05/24 07:57 Completed UA [Urinalysis and Microscopic] Stat Lab 02/05/24 08:59 Ordered Medical Decision Narrative: In summary, this 84-year-old female with history of hypertension presents to the emergency department today with sudden onset headache, vomiting. On initial evaluation patient is hypertensive but otherwise hemodynamically stable, afebrile, GCS 15, NIH 0, neurologically intact, abdomen soft, nontender, nondistended. Differential diagnosis includes but is not limited to intracranial bleed, mass, midline shift, with patient's dizziness I considered the possibility of stroke I have lower concern for this since patient's NIH is 0 and she has no nystagmus, additionally considered electrolyte abnormality, dehydration, viral syndrome, hypertensive urgency/emergency. Ruling out the most morbid conditions drove my assessment. Of note, patient was noted to have bedbugs and was decontaminated. Patient received hydralazine initially for treatment of her significant hypertension which dramatically improved her blood pressure. Patient also received Zofran. On reassessment despite improvement in hypertension patient continued having headache. Tylenol administered. CT medical lab director s personally interpreted does not demonstrate space-occupying lesion such as bleed, mass, or midline shift. See radiology read for final interpretation. CT angiography pending. Serum labs also pending. Patient handed off to Dr. Antoine at physician shift change for further management and disposition. <Wong Antoine MD - Last Filed: 02/05/24 09:24> Vital Signs: 02/05/24 06:25 02/05/24 07:11 02/05/24 07:31 Temperature 97.6 F Temperature Source Oral Pulse Rate 73 77 Pulse Rate [Right] 73 Respiratory Rate 18 24 27 H Blood Pressure 133/87 136/80 Blood Pressure [Right Arm] 197/98 H Blood Pressure Mean Blood Pressure Mean [Right Arm] 131 02 Sat by Pulse Oximetry 92 L 96 94 L Oxygen Delivery Method Room Air Oxygen Flow Rate (LPM) 02/05/24 08:01 02/05/24 08:01 02/05/24 09:01 Temperature Temperature Source Pulse Rate 82 Pulse Rate [Right] Respiratory Rate 16 15 13 Blood Pressure 171/81 H 189/79 H Blood Pressure [Right Arm] Blood Pressure Mean 111 Blood Pressure Mean [Right Arm] 02 Sat by Pulse Oximetry 85 L 92 L 96 Oxygen Delivery Method Room Air Nasal Cannula Oxygen Flow Rate (LPM) 2 02/05/24 09:07 Temperature 98.2 F Temperature Source Pulse Rate 78 Pulse Rate [Right] Respiratory Rate 22 Blood Pressure 168/79 H Blood Pressure [Right Arm] Blood Pressure Mean Blood Pressure Mean [Right Arm] 02 Sat by Pulse Oximetry Oxygen Delivery Method Nasal Cannula Oxygen Flow Rate (LPM) 2 Lab Data Lab Results 02/05/24 06:33: WBC 11.4 H, RBC 5.15, Hgb 15.3, Hct 47.2 H, MCV 91.6, MCH 29.6, MCHC 32.3, RDW 15.0, Plt Count 342, MPV 7.7, Neut % (Auto) 71.7, Lymph % (Auto) 21.2, [place] % (Auto) 4.2, Eos % (Auto) 2.1, Baso % (Auto) 0.7, Neut # (Auto) 8.2 H, Lymph # (Auto) 2.4, [place] # (Auto) 0.5, Eos # (Auto) 0.2, Baso # (Auto) 0.1, PT 10.4, INR 0.92, Sodium 135 L, Potassium 2.9 L*, Chloride 94 L, Carbon Dioxide 30, Anion Gap 13.9, BUN 18 H, Creatinine 0.80, Estimated Creat Clear 40, Estimated GFR 69, Est GFR ( Amer) 83, Glucose 162 H, Calcium 8.5, Total Bilirubin 0.6, AST 24, ALT 23, Alkaline Phosphatase 96, NT-Pro-B Natriuret Pep 257, Total Protein 7.8, Albumin 4.4, Globulin 3.4 H, Albumin/Globulin Ratio 1.3 02/05/24 07:57: SARS-CoV-2 (PCR) Not detected, Influenza A Untype (PCR) Not detected, Influenza Type B (PCR) Not detected Orders (Tests/Meds): ED MEDICATIONS Generic Name Dose Route Start Last Admin Trade Name Freq PRN Reason Stop Dose Admin Potassium Chloride/Water 100 mls @ 100 mls/hr 02/05/24 07:39 02/05/24 07:53 Potassium Chloride 10meq/100ml Ivpb IV 02/05/24 09:38 100 mls/hr Q1H GUNNER Administration Ceftriaxone Sodium 1 gm/ 50 mls @ 100 mls/hr 02/05/24 09:00 02/05/24 09:05 Sodium Chloride IV 02/05/24 09:29 Not Given ONCE ONE Irbesartan 75 mg 02/05/24 09:15 Irbesartan 75mg Tablet PO 03/06/24 09:14 DAILY GUNNER Levothyroxine Sodium 150 mcg 02/05/24 09:15 Levothyroxine 150mcg (0.15mg)Tab PO 03/06/24 09:14 DAILYDM GUNNER Nifedipine 60 mg 02/05/24 09:15 Nifedipine Xl 30mg Tablet PO 03/06/24 09:14 DAILY GUNNER Sodium Chloride 10 ml 02/05/24 09:10 Sodium Chloride 0.9% 10ml Flush Syringe IV 03/06/24 09:09 NEEDED PRN Maintain IV Site Discontinued Medications Generic Name Dose Route Start Last Admin Trade Name Alexander PRN Reason Stop Dose Admin Acetaminophen 500 mg 02/05/24 07:27 02/05/24 08:53 Acetaminophen 500mg Tab PO 02/05/24 07:28 500 mg ONCE ONE Administration Ceftriaxone Sodium 1 gm 02/05/24 08:49 02/05/24 08:56 Ceftriaxone 1gm Vial IV 02/05/24 08:50 Not Given ONCE ONE Dexamethasone 10 mg 02/05/24 07:40 02/05/24 08:53 Dexamethasone 4mg Tablet PO 02/05/24 07:41 10 mg ONCE ONE Administration Furosemide 40 mg 02/05/24 09:07 Furosemide 40mg/4ml Vial IV 02/05/24 09:08 ONCE ONE Hydralazine HCl 10 mg 02/05/24 06:37 02/05/24 06:42 Hydralazine 20mg/Ml Vial IV 02/05/24 06:38 10 mg ONCE ONE Administration Magnesium Sulfate 2 gm in 50 mls @ 50 mls/hr 02/05/24 07:40 02/05/24 07:53 Magnesium Sulfate 2gm/50ml Premix IV 02/05/24 08:39 50 mls/hr ONCE ONE Administration Iopamidol 100 ml 02/05/24 07:09 02/05/24 07:10 Iopamidol-370 (76%);100ml Bottle IV 02/05/24 07:10 100 ml ONCE ONE Administration Ketorolac Tromethamine 15 mg 02/05/24 07:40 02/05/24 07:54 Ketorolac 30mg/Ml Vial IV 02/05/24 07:41 15 mg ONCE ONE Administration Ondansetron HCl 4 mg 02/05/24 06:37 02/05/24 06:42 Ondansetron 4mg/2ml Vial IV 02/05/24 06:38 4 mg ONCE ONE Administration Potassium Chloride 60 meq 02/05/24 07:39 02/05/24 08:52 Potassium Chloride 20meq Tab PO 02/05/24 07:40 60 meq ONCE ONE Administration Prochlorperazine Edisylate 10 mg 02/05/24 07:48 02/05/24 07:54 Prochlorperazine 10mg/2ml Vial IV 02/05/24 07:49 10 mg ONCE ONE Administration Sodium Chloride 50 ml 02/05/24 07:09 02/05/24 07:11 0.9 % Sodium Chloride 50 Ml Vial IV 02/05/24 07:10 50 ml ONCE ONE Administration Sodium Chloride 10 ml 02/05/24 07:09 02/05/24 07:11 Sodium Chloride 0.9% 10ml Syr (Rad Only) IV 03/06/24 07:08 10 ml NEEDED PRN Administration Maintain IV Site ORDERS Category Date Time Status CT angio head Stat Cat Scan 02/05/24 06:[address] angio neck Stat Cat Scan 02/05/24 06:[address] head/brain wo con Stat Cat Scan 02/05/24 06:36 Completed CXR --portable [XR chest portable] Stat Exams 02/05/24 08:12 Completed Basic Metabolic Panel Routine Lab 02/05/24 14:00 Ordered CBC w/Auto Diff [Complete Blood Count Auto Diff] Stat Lab 02/05/24 06:33 Completed CMP [Comprehensive Metabolic Panel] Stat Lab 02/05/24 06:33 Completed Complete Blood Count Auto Diff AMLAB Lab 02/06/24 06:00 Ordered Comprehensive Metabolic Panel AMLAB Lab 02/06/24 06:00 Ordered HIV (1&2) Antibody Rapid Stat Lab 02/05/24 06:33 Received Hep C Ab with Reflex to RNA Stat Lab 02/05/24 06:33 Received Magnesium AMLAB Lab 02/06/24 06:00 Ordered NT Pro Brain Natriuretic Pep. Stat Lab 02/05/24 06:33 Completed PT INR [Prothrombin Time INR] Stat Lab 02/05/24 06:33 Completed Rapid PCR Covid and Flu A/B Stat Lab 02/05/24 07:57 Completed UA [Urinalysis and Microscopic] Stat Lab 02/05/24 08:59 Ordered Medical Decision Narrative: In summary, this 84-year-old female with history of hypertension presents to the emergency department today with sudden onset headache, vomiting. On initial evaluation patient is hypertensive but otherwise hemodynamically stable, afebrile, GCS 15, NIH 0, neurologically intact, abdomen soft, nontender, nondistended. Differential diagnosis includes but is not limited to intracranial bleed, mass, midline shift, with patient's dizziness I considered the possibility of stroke I have lower concern for this since patient's NIH is 0 and she has no nystagmus, additionally considered electrolyte abnormality, dehydration, viral syndrome, hypertensive urgency/emergency. Ruling out the most morbid conditions drove my assessment. Of note, patient was noted to have bedbugs and was decontaminated. Patient received hydralazine initially for treatment of her significant hypertension which dramatically improved her blood pressure. Patient also received Zofran. On reassessment despite improvement in hypertension patient continued having headache. Tylenol administered. CT medical lab director s personally interpreted does not demonstrate space-occupying lesion such as bleed, mass, or midline shift. See radiology read for final interpretation. CT angiography pending. Serum labs also pending. Patient handed off to Dr. Antoine at physician shift change for further management and disposition. Arash: I assumed primary responsibility for this patient after signout from previous physician. On my independent evaluation, patient with headache and nausea. Rest of migraine cocktail was ordered including magnesium, Compazine, Toradol, Decadron. This seemed to relieve patient's symptoms significantly. Chest x-ray also ordered given patient has hypoxemia into the low 80s while awake. Nonactionable CBC other than mild leukocytosis. Chemistry with hypokalemic hyponatremia, normal kidney function. UA ordered. BNP negative. Patient's chest x-ray with what appears to be scarring on the right side consistent with previous admeasurer film from abdominal CT. Also read as bronchitis. Lungs are clear to auscultation on my evaluation, so this could be part of patient's intermittent desaturations to the mid 80s. On reevaluation again, patient states that her headache is moderate, returning, associated with nausea, but she is sleeping comfortably. Patient also intermittently gagging herself, so unsure if true nausea or not. Because patient having intractable headache, hospital medicine contacted and agreeable to admission, electrolyte repletion, and further management. Patient's home blood pressure medications were ordered by hospital medicine, these to be administered in the emergency department. Because patient high risk for clinical decompensation, deemed appropriate for inpatient admission. Results were relayed to patient who voiced understanding and patient was agreeable to inpatient admission and management. Patient was admitted to the hospital for further definitive management. Critical Care <Estela Alabrado MD - Last Filed: 02/05/24 07:30> Critical Care Time Critical Care Time: Yes Attestation: On 02/05/24, the high probability of a clinically significant, sudden or life threatening deterioration of the following system(s) (neuro, cardiac) required my full and direct attention, intervention and personal management. The time I documented below is in addition to time spent performing reported procedures but includes the following listed in this critical care notation. Total Time Total Critical Care Time: 35
[2024-02-05 07:28] LABS: Basophils # 0.1 K/mm3 (0-0.2); Basophils % 0.7 % (0.1-2.0); Eosinophils # 0.2 K/mm3 (0.0-0.4); Eosinophils % 2.1 % (0.1-12.0); Hematocrit 47.2 % (37.0-47.0); Hemoglobin 15.3 g/dL (12.2-16.2); Lymphocytes # 2.4 K/mm3 (0.7-4.5); Lymphocytes % 21.2 % (10-50); Mean Corpuscular HGB Conc 32.3 g/dL (31.8-35.4); Mean Corpuscular Hemoglobin 29.6 pg (27.0-31.2); Mean Corpuscular Volume 91.6 fl (81-99); Mean Platelet Volume 7.7 fl (7.4-10.4); Monocytes # 0.5 K/mm3 (0.1-1.0); Monocytes % 4.2 % (1.7-9.3); Neutrophils # 8.2 K/mm3 (1.8-7.8); Neutrophils % 71.7 % (37.0-80.0); Platelet Count 342 K/mm3 (142-424); Red Blood Count 5.15 M/mm3 (4.20-5.40); White Blood Count 11.4 K/mm3 (4.8-10.8)
[2024-02-05 07:30] LABS: Potassium 2.9 mmoL/L (3.5-5.1)
--- NOTE | 2024-02-05 07:32 | PC.NURSE ---
critical k+ received from lab, pt name and r/v. dr pelayo notified. no new orders
--- NOTE | 2024-02-05 07:34 | PC.NURSE ---
dr carbajal speaking with dhirajad
[2024-02-05] MEDS: MAGNESIUM SULFATE IN WATER 2 GM/50 ML PIGGYBACK IV (07:53)
[2024-02-05] MEDS: KCl 10mEq/100ml 100 ML 100 MEQ IV ×2 (07:53→10:58)
[2024-02-05] MEDS: PROCHLORPERAZINE 10MG/2ML VIAL 10 MG IV (07:54)
[2024-02-05] MEDS: KETOROLAC 30MG/ML VIAL 15 MG IV (07:54)
[2024-02-05 07:57] LABS: Influenza A, PCR Not Detected (NotDetected); Influenza B, PCR Not Detected (NotDetected)
[2024-02-05 07:58] LABS: Coronavirus 19, PCR Not Detected (NotDetected)
--- NOTE | 2024-02-05 08:12 | XR_ITS ---
FINAL REPORT CLINICAL HISTORY: hypoxemia COMPARISON: None FINDINGS: A single portable view of the chest was obtained. Cardiomegaly is present. The mediastinum is within normal limits. Mild bilateral atelectasis is noted. There is also mild bronchial wall thickening, worrisome for bronchitis. The bony thorax is intact. IMPRESSION: Cardiomegaly with mild bilateral atelectasis. Mild bronchial wall thickening, worrisome for bronchitis. Reviewed, Interpreted and Dictated by Fran Pena III, MD Transcribed by Skylar Schmidt Authenticated and [facility]
--- NOTE | 2024-02-05 08:22 | PC.NURSE ---
xr at bedside
[2024-02-05 08:44] LABS: NT Pro Brain Natriuretic Pep. 257 pg/mL (0-450)
[2024-02-05] MEDS: POTASSIUM CHLORIDE 20MEQ TAB 60 MEQ PO (08:52)
[2024-02-05] MEDS: DEXAMETHASONE 4MG TABLET 10 MG PO (08:53)
[2024-02-05] MEDS: ACETAMINOPHEN 500MG TAB 500 MG PO (08:53)
--- NOTE | 2024-02-05 08:58 | PC.NURSE ---
dr duffy speaking with dr bailey
--- NOTE | 2024-02-05 09:07 | PC.NURSE ---
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
--- NOTE | 2024-02-05 09:17 | HMH.PHAINT1 ---
Pharmacy Intervention Comments: MEDICATION RECONCILIATION COMPLETED ON PATIENT USING EXTERNAL FILL HISTORY FROM PHARMACY. -SHAUNNA SOL, NITAD
[2024-02-05] MEDS: SODIUM CHLORIDE 0.9% 10ML FLUSH SYRINGE 10 ML IV (09:27)
[2024-02-05] MEDS: FUROSEMIDE 40MG/4ML VIAL 40 MG IV ×2 (09:27→17:16)
--- NOTE | 2024-02-05 09:28 | PC.NURSE ---
Per Dr. Antoine, Dr Sams would like staff to give home BP meds di to assist in dc home sooner. Nifedipine nor Irbesartan available in ER [facility]. Will give Lasix at this time.
[2024-02-05] MEDS: LEVOTHYROXINE 150MCG (0.15MG)TAB 150 MCG PO (10:09)
[2024-02-05] MEDS: IRBESARTAN 75MG TABLET 75 MG PO (10:09)
[2024-02-05] MEDS: NIFEdipine XL 30MG TABLET 60 MG PO (10:09)
[2024-02-05 10:38] LABS: Microscopic, Urine URINE MICROSCOPIC (MICROSCOPIC)
[2024-02-05 11:01] LABS: Appearance,Urine CLEAR (Clear); Bilirubin,Urine Negative (Negative); Blood, Urine Negative (Negative); Color,Urine YELLOW (Yellow); Glucose,Urine (UA) Negative (Negative); Ketones,Urine Negative (Negative); Leukocyte Esterase,Urine Negative (Negative); Nitrate,Urine Negative (Negative); PH,Urine 7.5 (5.0-8.5); Protein,Urine 2+ (Negative); Urobilinogen,Urine 0.2 EU/dl (0.2)
[2024-02-05 11:58] LABS: Bacteria,Urine 4+ /lpf; Squamous Epithelial Cell,Urine Occasional #/hpf (0-5)
[2024-02-05 12:31] LABS: HIV (1&2) Antibody Rapid NONREACTIVE (NONREACTIVE)
[2024-02-05 15:04] LABS: Chloride 94 mmol/L (98-107); Potassium 4.4 mmoL/L (3.5-5.1); Sodium 132 mmol/L (136-145)
[2024-02-05 15:07] LABS: Anion Gap 14.4 mEq/L (5-15); Blood Urea Nitrogen 17 mg/dl (7-17); Calcium 7.8 mg/dl (8.4-10.2); Carbon Dioxide 28 mmol/L (22.0-30.0); Creatinine Clearance Estimated 42 mL/min (50-200); Estimated Glomerular Filt Rate 53 ml/min (>60); GFR (African American) 64 ML/MIN (>60); Glucose 156 mg/dl (74-100)
--- NOTE | 2024-02-05 16:15 | P.HP_ITS ---
History of Present Illness *Admission Date: 02/05/24 *Reason for visit:: headache *History of present illness: Ms. Guerrier is an 84-year-old female with history of lumbar stenosis, thyroid answer, hypertension, anxiety, hypothyroid who presents to the ER complaining of severe headache. Headache began this morning. Denies thunderclap but states the headache is severe. It is progressively worsened since wakening up this morning. Has not missed any doses up to last night of her home medications but did not take her home medications this morning. On arrival to the ER, found to have severely elevated blood pressure. Systolic of 197 on arrival. All complaining of nausea. Medically managed in the ER with no significant improvement. Labs showing hypokalemia. While being worked up in the ER, patient's O2 sats dropped to the mid 80s on room air. Necessitating 2 L oxygen which is new for her. Given her electrolyte disturbance, new oxygen requirement, and persistent hypertension, medicine consulted for admission and further management. Family at bedside including her son and daughter supplement history. States that Ms. Guerrier continues to be unsteady and dizzy on her feet. Denies any known fever, cough, chest pain, shortness of breath. Patient appears quite fatigued on evaluation. This is unlike her. They state that she said over the past day or 2 she has just not felt well. [facility] Disclaimer: The information contained in this section may have been updated after the patient was seen, as this information can be updated by other users. Medical History Anxiety Thyroid cancer Hypertension Surgical History Hx of fracture of wrist H/O parathyroidectomy History of cholecystectomy History of hysterectomy H/O thyroidectomy Family History Diabetes Brother Coronary artery disease Mother Cancer Father Brother Social History Smoking Status: Never smoker alcohol intake: never substance use type: denies use current occupational status: retired Travel in the last 8 weeks: None housing: house lives independently: No Other Medical History Have you received the Flu Vaccine for this season: No Have you received the Pneumonia Vaccine: No Review of Systems Review of Systems Review of systems (narrative): 14 point review of systems performed, pertinent positives and negatives as per HPI Meds Home Medications and Allergies Home Medications ?Medication ?Instructions ?Recorded ?Confirmed ?Type calcitriol 0.25 mcg capsule 0.5 mcg PO DAILY 01/15/22 02/05/24 History multivitamin 1 tab PO DAILY 01/15/22 02/05/24 History nifedipine 60 mg tablet,extended 60 mg PO BID 04/03/23 02/05/24 History release aspirin 81 mg tablet,delayed 81 mg PO DAILY 09/29/23 02/05/24 History release (Sayra Low Dose Aspirin) hydrochlorothiazide 12.5 mg tablet 12.5 mg PO DAILY 11/21/23 02/05/24 History valsartan 80 mg tablet 80 mg PO DAILY 11/21/23 02/05/24 History escitalopram oxalate 10 mg tablet 10 mg PO DAILY #90 tabs 12/25/23 02/05/24 Rx levothyroxine 112 mcg tablet 112 mcg PO DAILY 02/05/24 02/05/24 History levothyroxine 50 mcg tablet 50 mcg PO DAILY 02/05/24 02/05/24 History omeprazole 40 mg capsule,delayed 40 mg PO DAILY 02/05/24 02/05/24 History release torsemide 10 mg tablet 10 mg PO DAILY 02/05/24 02/05/24 History vandetanib 100 mg tablet (Caprelsa) 200 mg PO DAILY 02/05/24 02/05/24 History New Prescriptions to Start Prescriptions: Allergies Allergy/AdvReac Type Severity Reaction Status Date / Time amoxicillin [From AUGMENTIN] Allergy Mild VOMITING Verified 12/30/23 11:12 clavulanic acid Allergy Mild VOMITING Verified 12/30/23 11:12 [From AUGMENTIN] Exam Data for Last 24 hours Vital signs and Labs for Last 24 Hours: Temp Pulse Resp BP Pulse Ox O2 Del Method O2 Flow Rate 98.2 F 63 16 140/73 89 L Room Air 2 02/05/24 12:00 02/05/24 15:52 02/05/24 15:52 02/05/24 15:52 02/05/24 15:52 02/05/24 15:52 02/05/24 09:07 Laboratory Results - last 24 hr 02/05/24 06:33: WBC 11.4 H, RBC 5.15, Hgb 15.3, Hct 47.2 H, MCV 91.6, MCH 29.6, MCHC 32.3, RDW 15.0, Plt Count 342, MPV 7.7, Neut % (Auto) 71.7, Lymph % (Auto) 21.2, Phillips % (Auto) 4.2, Eos % (Auto) 2.1, Baso % (Auto) 0.7, Neut # (Auto) 8.2 H, Lymph # (Auto) 2.4, Phillips # (Auto) 0.5, Eos # (Auto) 0.2, Baso # (Auto) 0.1, PT 10.4, INR 0.92, Sodium 135 L, Potassium 2.9 L*, Chloride 94 L, Carbon Dioxide 30, Anion Gap 13.9, BUN 18 H, Creatinine 0.80, Estimated Creat Clear 40, Estimated GFR 69, Est GFR ( Amer) 83, Glucose 162 H, Calcium 8.5, Total Bilirubin 0.6, AST 24, ALT 23, Alkaline Phosphatase 96, NT-Pro-B Natriuret Pep 257, Total Protein 7.8, Albumin 4.4, Globulin 3.4 H, Albumin/Globulin Ratio 1.3, HIV 1&2 Antibody Rapid Nonreactive 02/05/24 07:57: SARS-CoV-2 (PCR) Not detected, Influenza A Untype (PCR) Not detected, Influenza Type B (PCR) Not detected 02/05/24 10:33: Urine Color Yellow, Urine Appearance Clear, Urine pH 7.5, Ur Specific Cochrane 1.020, Urine Protein 2+ A, Urine Glucose (UA) Negative, Urine Ketones Negative, Urine Blood Negative, Urine Nitrate Negative, Urine Bilirubin Negative, Urine Urobilinogen 0.2, Ur Leukocyte Esterase Negative, Urine RBC 3-5, Urine WBC 3-5, Ur Squamous Epith Cells Occasional, Urine Bacteria 4+ 02/05/24 14:18: Sodium 132 L, Potassium 4.4 D, Chloride 94 L, Carbon Dioxide 28, Anion Gap 14.4, BUN 17, Creatinine 1.00 D, Estimated Creat Clear 42, Estimated GFR 53 L, Est GFR ( Amer) 64 D, Glucose 156 H, Calcium 7.8 L I & O for Last 24 hours: Intake & Output 02/02/24 02/03/24 02/04/24 02/05/24 23:59 23:59 23:59 23:59 Output Total 500 / 500 Balance -500 / -500 Weight 61.32 kg Constitutional Constitutional: no acute distress, thin, chronically ill appearing and cooperative *Routine HEENT Exam Head: Present normocephalic Eye: Present EOMI and PERRL ENT: Present mucous membranes moist *Routine Neck Exam Neck: Present supple; Absent lymphadenopathy *Routine Respiratory Exam Respiratory: Present CTA bilaterally; Absent rhonchi, wheezes or crackles *Routine Cardiovascular Exam Cardiovascular: Present RRR *Routine Abdominal Exam Abdominal: Present soft and normoactive bowel sounds; Absent tenderness *Routine Rectal Exam Rectal:: deferred *Routine Genitalia Exam Genitalia:: deferred *Routine Extremities Exam Extremities: Absent cyanosis, clubbing or edema *Routine Skin Exam Skin: Present warm; Absent rash *Routine Neurological Exam Neurological: Present alert and moving all extremities; Absent altered mental status Comments: Fatigued, oriented to self and place. Poor historian. Family at bedside supplements history Assessment and Plan *Assessment and plan (1) Acute hypokalemia: Status: Acute Category: Medical Code(s): E87.6 - Hypokalemia (2) Acute intractable headache: Status: Acute Category: Medical Code(s): R51.9 - Headache, unspecified (3) UTI (urinary tract infection): Status: Acute Category: Medical Code(s): N39.0 - Urinary tract infection, site not specified (4) Hypertension: Status: Acute Category: Medical Code(s): I10 - Essential (primary) hypertension (5) Anxiety: Status: Acute Category: Medical Code(s): F41.9 - Anxiety disorder, unspecified (6) Thyroid cancer: Status: Acute Category: Medical Code(s): C73 - Malignant neoplasm of thyroid gland (7) Hypoxemia: Status: Acute Category: Medical Code(s): R09.02 - Hypoxemia Plan 84-year-old female who presented with headache and weakness. Found to have hypertensive urgency, hypokalemia, UTI. Discussed case with ER physician, request admission for electrolyte replacement, addressing blood pressure, and treatment of UTI. I agreed to admit for further management. Received ceftriaxone in the ER. Blood pressure showing some improvement. Continues to be quite weak. Will need therapy eval in the morning. Problems addressed as follows: Hypokalemia: - Patient reports she was having edema and saw her care consultant who started her on torsemide recently. Potassium 2.9 on presentation. Repeat labs ordered for the afternoon which showed an improvement to 4.4 at 2 PM. Continue potassium repletion with 40 mEq twice daily, another dose this evening. Given her hypoxia, concern for mild volume overload. Does have some trace edema in legs. Will administer an additional dose of Lasix. 40 mg IV x 1. Repeat CBC, CMP, magnesium ordered for the morning, monitoring electrolytes for toxicity of diuretic and electrolyte disturbances Headache and reviewing the treatment of blood pressure. Continue Tylenol or Toradol as needed every 6 hours -Per my review of CT of head, no acute infarct or mass effect. No signs of hemorrhage -Chest imaging does show increased interstitial markings in lower lung kelly per my review. Supplemental oxygen as needed, wean to room air if tolerated later today. Currently on 2 L, goal sats greater 90%. Hypertensive urgency: Severely elevated on arrival. Resumed home medications including valsartan 80 mg daily, nifedipine 60 mg twice daily, additional dose of Lasix this evening. Monitor for adjustments over the next 24 hours Suspected UTI: Urine grossly abnormal with 2+ protein, negative nitrate, 4+ bacteria, 3-5 white count. Administered 1 g ceftriaxone in the ER. Will continue every 24 hours pending culture. Mood disorder: Continue Lexapro 10 mg daily Hypothyroid/history of thyroid cancer: Resume levothyroxine at home regimen daily. TSH pending Full code Regular diet
[2024-02-05] MEDS: POTASSIUM CHLORIDE 20MEQ TAB 40 MEQ PO ×2 (16:57→20:33)
--- NOTE | 2024-02-05 17:31 | PC.NURSE ---
patient is a/o x4 with periods of acute confusion. she ambulates to the bathroom with standy by assist and cane. she is on 2 LNC currently. no c/o pain currently, call light within reach.
[2024-02-06] VITALS: BP 106/48; PULSE 50; PULSE 55; RESP 18; TEMP 36.4; O2SAT 93
[2024-02-06 04:00] VITALS: BP 100/55; PULSE 49; PULSE 51; RESP 14; TEMP 36.5; O2SAT 95; BMI 23.7
--- NOTE | 2024-02-06 04:31 | ECG_ITS ---
APPROVED REPORT Exam: Resting ECG HR:58 bpm ECG Measurements Heart Rate 58 AXES QRSd 119 QRS -27 QT 474 T 7 QTc 471 Conclusion UNCERTAIN REGULAR RHYTHM RIGHT BUNDLE BRANCH BLOCK [120+ ms QRS DURATION, UPRIGHT V1, 40+ ms S IN I/aVL/V4/V5/V6] POSSIBLE ANTERIOR MYOCARDIAL INFARCTION , PROBABLY OLD [30 ms Q WAVE IN V3/V4, OR R < 0.2 mV IN V4] ABNORMAL ECG UNCONFIRMED REPORT Electronically signed by : Lane Loya MD 02/06/2024 09:16:09
--- NOTE | 2024-02-06 04:47 | P.EN_ITS ---
Problem: Nursing reported on conveyor monitor the patient appeared to be in junctional rhythm with lower blood pressure. That patient was still asymptomatic of any discomfort. This was a new onset and did not have old twelve-lead to compare to, EXAM: Twelve-lead shows a junctional rhythm in the 50s with right bundle branch block. Also on conveyor monitor the same patient is alert oriented talking with her without any difficulty explaining what I was looking for. She continues up on her thyroid medication chemotherapy. Reports that she does not feel badly she was able to get up and walk to the bathroom without any difficulty She denies chest pain shortness of breath or any other symptoms present Plan: Patient is stable to present time but will get stat labs checking for sodi um potassium magnesium and calcium, will consult cardiology to see her in the a.m. And will check a thyroid panel. Nursing will continue close monitoring until the return of these lab results..
[2024-02-06 05:08] LABS: Basophils # 0.1 K/mm3 (0-0.2); Basophils % 0.5 % (0.1-2.0); Eosinophils % 0.2 % (0.1-12.0); Hematocrit 43.8 % (37.0-47.0); Hemoglobin 14.5 g/dL (12.2-16.2); Lymphocytes # 2.7 K/mm3 (0.7-4.5); Lymphocytes % 25.5 % (10-50); Mean Corpuscular HGB Conc 33.1 g/dL (31.8-35.4); Mean Corpuscular Hemoglobin 29.6 pg (27.0-31.2); Mean Corpuscular Volume 89.6 fl (81-99); Monocytes # 0.8 K/mm3 (0.1-1.0); Monocytes % 7.8 % (1.7-9.3); Neutrophils # 6.9 K/mm3 (1.8-7.8); Platelet Count 352 K/mm3 (142-424); Red Blood Count 4.89 M/mm3 (4.20-5.40); Red Cell Distribution Width 15.2 % (11.5-17.5); White Blood Count 10.4 K/mm3 (4.8-10.8)
[2024-02-06 05:10] LABS: Chloride 101 mmol/L (98-107); Potassium 5.1 mmoL/L (3.5-5.1); Sodium 134 mmol/L (136-145)
[2024-02-06 05:12] LABS: Alanine Aminotransferase 25 U/L (12-78); Alkaline Phosphatase 72 U/L (38-126); Anion Gap 14.1 mEq/L (5-15); Aspartate Amino Transferase 24 U/L (14-36); Bilirubin,Total 0.5 mg/dl (0.2-1.3); Blood Urea Nitrogen 28 mg/dl (7-17); Carbon Dioxide 24 mmol/L (22.0-30.0); Creatinine Clearance Estimated 29 mL/min (50-200); Estimated Glomerular Filt Rate 36 ml/min (>60); GFR (African American) 44 ML/MIN (>60)
[2024-02-06 05:13] LABS: Albumin/Globulin Ratio 1.3 (1.1-1.8); Calcium 7.7 mg/dl (8.4-10.2); Globulin 3.2 g/dL (1.3-3.2); Glucose 110 mg/dl (74-100); Magnesium 2.1 mg/dl (1.6-2.3); Total Protein,Serum 7.2 g/dl (6.3-8.2)
[2024-02-06 05:14] LABS: Phosphorous 5.8 mg/dl (2.5-4.5)
[2024-02-06 05:25] LABS: Troponin I 0.04 ng/ml (0.00-0.034)
--- NOTE | 2024-02-06 05:34 | PC.NURSE ---
Alert and oriented. Ambulates to the restroom with standby assist. Rhythm changed noted at 0400 by charge nurse, notified with Padmini Oconnor APRN, new orders received and carried out. Pt is in no distress and resting comfortably at this time. Junctional rhythm noted. Tolerated room air throughout the night, O2 sat >90%. Lung sounds clear. Bed alarm on. Call light in reach.
[2024-02-06 05:38] LABS: Triiodothryronine (T3) Uptake 34 % (23.5-40.5)
[2024-02-06 05:39] LABS: Free Thyroxine Index 3.2 ug/dL (5.93-13.13); T4 (Thyroxine) 9.3 ug/dl (5.53-11.0)
[2024-02-06] MEDS: 0.9 % SODIUM CHLORIDE 1000ML 500 ML 250 ML IV (05:42)
[2024-02-06] MEDS: LEVOTHYROXINE 150MCG (0.15MG)TAB 150 MCG PO (06:46)
--- NOTE | 2024-02-06 07:19 | CA_ITS ---
APPROVED REPORT EXAM: Comprehensive 2D, Doppler, and color-flow Echocardiogram [place]man Driver: Melissa Conroy CRT Ht: 5 ft 1 in Wt: 129lbs BSA: 1.57 BP: 140/72 mmHg Indications: Hypertension/HDD, thyroid cancer, junctional rhythm 2D Dimensions LA Volume 35.60 mL LA Volume Index 22.10 mL/m2 (M/F) 16-34 M-Mode Dimensions RVDd 3.26 cm (0.9-2.6) LA Diam 3.41 cm (1.9-4.0) LVDd 3.93 cm (3.5-5.7) LVDs 2.85 cm (3.5-5.7) IVSd 1.77 cm (0.6-1.1) PWd 0.87 cm (0.6-1.1) EF (Teich) 53.90% FS 27.50% EDV (Teich) 67.10 mL TAPSE 2.08 (<1.7) ESV (Teich) 30.90 mL LV Diastology E Decel Time 327 (160-240 msec) E/A Ratio 0.44 MED A' 9.90 cm/s LAT A' 12.90 cm/s Aortic Valve JOSE Index 0.68 cm2/m2 AoV Peak Lawrence. 263.0 (50-130 cm/s) AI PHT 582.00 ms AO Peak GR. 27.60 mmHg AO Mean GR. 16.30 (<5 mmHg) AO VTI 61.0 (18-25 cm) JOSE (VTI) 1.09 (2.5-4.5 cm2) Mitral Valve MV A Velocity 131.0 (40-130 cm/s) E/A Ratio 0.44 Pulmonary Valve PV Peak Velocity 152.0 (50-150 cm/s) Tricuspid Valve TR P. Velocity 221.00 cm/s RAP Estimate 10.00 mmHg RVSP 29.60 mmHg Left Ventricle The left ventricle is normal size. The left ventricular systolic function is normal. The left ventricular ejection fraction is within the normal range. There is increased LV wall thickness. There is normal LV segmental wall motion. Diastolic function is indeterminate. LVEF is 65%. Right Ventricle The right ventricle is normal size. The right ventricular systolic function is normal. Atria Left atrium is mildly dilated. The right atrium size is normal. There is no Doppler evidence of interatrial shunt. Aortic Valve The aortic valve is moderately thickened. Moderate aortic stenosis. JOSE by continuity equation is 1.2 cm.. Peak velocity 2.8 m/s. Mean AV gradient 18 mmHg. Max AV gradient 28 mmHg. Mild aortic regurgitation. Mitral Valve Mild mitral annular calcification. The mitral valve leaflets are mildly thickened. No evidence of mitral valve stenosis. Trace mitral regurgitation. Tricuspid Valve The tricuspid valve leaflets are thin and pliable. Trace tricuspid regurgitation. There is insufficient TR jet to estimate RVSP. Pulmonic Valve The pulmonary valve is normal in structure. Mild pulmonic regurgitation. Great Vessels The aortic root is normal in size. The ascending aorta is mildly dilated, measuring 4.0 cm in diameter. IVC is normal in size and collapses >50% with inspiration. Pericardium There is no pericardial effusion. Other Information Study Quality: Fair Conclusion Normal biventricular systolic function. Mild LA dilation. Moderate (JOSE by continuity equation is 1.2 cm.. Peak velocity 2.8 m/s. Mean AV gradient 18 mmHg. Max AV gradient 28 mmHg). Mild AI, mild PI. Mildly dilated ascending aorta (4.0 cm in diameter). In the setting of moderate and dilated ascending aorta, serial TTE evaluations at 6-months interval is recommended. Electronically signed by : Hyun De La Cruz MD 02/06/2024 11:48:31
[2024-02-06 07:53] VITALS: BP 137/68; PULSE 52; RESP 17; TEMP 37.3; O2SAT 93
[2024-02-06 08:00] VITALS: PULSE 50
[2024-02-06] MEDS: CITALOPRAM 20MG TABLET 20 MG PO (08:15)
[2024-02-06] MEDS: IRBESARTAN 75MG TABLET 75 MG PO (08:15)
[2024-02-06] MEDS: CEFTRIAXONE SODIUM 1 GM in 0.9 % SODIUM CHLORIDE 50 ML IV (08:15)
--- NOTE | 2024-02-06 08:16 | ECG_ITS ---
APPROVED REPORT Exam: Resting ECG HR:57 bpm ECG Measurements Heart Rate 57 AXES [place] 161 P 24 QRSd 127 QRS -32 QT 495 T 5 QTc 488 Conclusion SINUS BRADYCARDIA LEFT AXIS DEVIATION [QRS AXIS < -30] RIGHT BUNDLE BRANCH BLOCK [120+ ms QRS DURATION, UPRIGHT V1, 40+ ms S IN I/aVL/V4/V5/V6] MODERATE VOLTAGE CRITERIA FOR LVH, CONSIDER NORMAL VARIANT [MEETS CRITERIA IN ONE OF: R(aVL), S(V1), R(V5), R(V5/V6)+S(V1)] NSSTW changes ABNORMAL ECG UNCONFIRMED REPORT Electronically signed by : Lane Loya MD 02/06/2024 09:15:41
--- NOTE | 2024-02-06 08:41 | P.CONCA_ITS ---
History of Present Illness History of Present Illness Consult date: 02/06/24 Requesting physician: Khanh Sams Consult reason: hypertension Chief complaint: Headache, HTN, junctional rhythm Additional Medical History:: 1. Hypertension, treated for many years 2. History of thyroid cancer status postsurgical removal approximately 2021 A. On thyroid replacement B. On Caprelsa for chemotherapy 3. Possible vascular dementia A. Head CT 02/05/2024, moderately advanced chronic microvascular disease and generalized atrophy without acute intracranial abnormality. No evidence of acute hemorrhage, mass lesion or obvious acute ischemic infarction. B. Neck CTA, 02/05/2024, no acute flow-limiting stenosis or large vessel occlusion. C. Neck CTA, 02/05/2024, no acute flow-limiting stenosis, occlusion, aneury sm or dissection of the carotid/vertebral arteries. 4. Aortic stenosis 5. 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 Headache began earlier yesterday morning with progressive worsening during the day. Patient's blood pressure in the ER noted to be severely elevated at 197 systolic on arrival. Further workup in the ER showed evidence of hypokalemia as well as hypoxemia. Patient ultimately admitted for further evaluation and treatment. Potassium supplementation was started with correction in the hypokalemia. Possible pulmonary edema noted and was given IV Lasix with subsequent mild acute kidney injury noted but good urine output. Patient's home medications were restarted with subsequent significant improvement in blood pressure. Per Dr. Sams, review of her medications include chemotherapy agent vandetanib which may be causing patient to have hypertension. 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 Overnight patient noted to have nocturnal asymptomatic junctional rhythm in the 50s beat per minute range. This a.m. patient's heart rate is still in the 50s but is noted to have P waves with normal LA interval. Patient does have some difficulty finding words at times but overall answers questions appropriately. She is known to have a longstanding heart murmur with echocardiogram results pending this morning. Mild bump in troponin to 0.04 likely related to hypoxemia. [facility] Disclaimer: The information contained in this section may have been updated after the patient was seen, as this information can be updated by other users. Medical History Anxiety Thyroid cancer Hypertension Surgical History Hx of fracture of wrist H/O parathyroidectomy History of cholecystectomy History of hysterectomy H/O thyroidectomy Family History Diabetes Brother Coronary artery disease Mother Cancer Father Brother Social History Smoking Status: Never smoker alcohol intake: never substance use type: denies use current occupational status: retired Travel in the last 8 weeks: None housing: house lives independently: No Review of Systems Review of Systems Review of systems:: pertinent systems reviewed and negative unless documented below Constitutional Constitutional: Reports fatigue *Cardiovascular Cardiovascular: Denies chest pain and Reports leg edema *Neurologic Neurologic: Reports as per HPI Endocrine Endocrine: Reports fatigue Exam Data for Last 24 hours Vital signs and Labs for Last 24 Hours: Temp Pulse Resp BP Pulse Ox O2 Del Method O2 Flow Rate 99.1 F 52 L 17 137/68 93 L Room Air 2 02/06/24 07:53 02/06/24 07:53 02/06/24 07:53 02/06/24 07:53 02/06/24 07:53 02/06/24 07:53 02/05/24 20:00 Laboratory Results - last 24 hr 02/05/24 06:33: NT-Pro-B Natriuret Pep 257, HIV 1&2 Antibody Rapid Nonreactive 02/05/24 10:33: Urine Color Yellow, Urine Appearance Clear, Urine pH 7.5, Ur Specific [place] 1.020, Urine Protein 2+ A, Urine Glucose (UA) Negative, Urine Ketones Negative, Urine Blood Negative, Urine Nitrate Negative, Urine Bilirubin Negative, Urine Urobilinogen 0.2, Ur Leukocyte Esterase Negative, Urine RBC 3-5, Urine WBC 3-5, Ur Squamous Epith Cells Occasional, Urine Bacteria 4+ 02/05/24 14:18: Sodium 132 L, Potassium 4.4 D, Chloride 94 L, Carbon Dioxide 28, Anion Gap 14.4, BUN 17, Creatinine 1.00 D, Estimated Creat Clear 42, Estimated GFR 53 L, Est GFR ( Amer) 64 D, Glucose 156 H, Calcium 7.8 L 02/06/24 04:50: WBC 10.4, RBC 4.89, Hgb 14.5, Hct 43.8, MCV 89.6, MCH 29.6, MCHC 33.1, RDW 15.2, Plt Count 352, MPV 8.0, Neut % (Auto) 66.0, Lymph % (Auto) 25.5, [place] % (Auto) 7.8, Eos % (Auto) 0.2, Baso % (Auto) 0.5, Neut # (Auto) 6.9, Lymph # (Auto) 2.7, [place] # (Auto) 0.8, Eos # (Auto) 0.0, Baso # (Auto) 0.1, Sodium 134 L, Potassium 5.1, Chloride 101, Carbon Dioxide 24, Anion Gap 14.1, BUN 28 H D, Creatinine 1.40 H D, Estimated Creat Clear 29, Estimated GFR 36 L, Est GFR ( Amer) 44 L D, Glucose 110 H D, Calcium 7.7 L, Phosphorus 5.8 H, Magnesium 2.1, Total Bilirubin 0.5, AST 24, ALT 25, Alkaline Phosphatase 72, Troponin I 0.04 H, Total Protein 7.2, Albumin 4.0, Globulin 3.2, Albumin/Globulin Ratio 1.3, TSH 22.00 H, Free T4 Index 3.2 L, Thyroxine (T4) 9.3, T3 Uptake 34 I & O for Last 24 hours: Intake & Output 02/03/24 02/04/24 02/05/24 02/06/24 11:59 11:59 11:59 11:59 Intake Total 1140 / 1140 Output Total 500 / 500 400 / 400 Balance -500 / -500 740 / 740 Weight 135 lb 2.999 oz 129 lb 1.6 oz Constitutional Constitutional: no acute distress *Routine Respiratory Exam Respiratory: Present CTA bilaterally *Routine Cardiovascular Exam Cardiovascular: Present RRR and murmur; Absent gallop or rubs *Routine Extremities Exam Extremities: Absent edema *Routine Neurological Exam Neurological: Present alert, oriented X3 and CN II-XII intact Meds Home Medications and Allergies Home Medications ?Medication ?Instructions ?Recorded ?Confirmed ?Type calcitriol 0.25 mcg capsule 0.5 mcg PO DAILY 01/15/22 02/05/24 History multivitamin 1 tab PO DAILY 01/15/22 02/05/24 History nifedipine 60 mg tablet,extended 60 mg PO BID 04/03/23 02/05/24 History release aspirin 81 mg tablet,delayed 81 mg PO DAILY 09/29/23 02/05/24 History release (Sayra Low Dose Aspirin) hydrochlorothiazide 12.5 mg tablet 12.5 mg PO DAILY 11/21/23 02/05/24 History valsartan 80 mg tablet 80 mg PO DAILY 11/21/23 02/05/24 History escitalopram oxalate 10 mg tablet 10 mg PO DAILY #90 tabs 12/25/23 02/05/24 Rx levothyroxine 112 mcg tablet 112 mcg PO DAILY 02/05/24 02/05/24 History levothyroxine 50 mcg tablet 50 mcg PO DAILY 02/05/24 02/05/24 History omeprazole 40 mg capsule,delayed 40 mg PO DAILY 02/05/24 02/05/24 History release torsemide 10 mg tablet 10 mg PO DAILY 02/05/24 02/05/24 History vandetanib 100 mg tablet (Caprelsa) 200 mg PO DAILY 02/05/24 02/05/24 History New Prescriptions to Start Prescriptions: Allergies Allergy/AdvReac Type Severity Reaction Status Date / Time amoxicillin [From AUGMENTIN] Allergy Mild VOMITING Verified 12/30/23 11:12 clavulanic acid Allergy Mild VOMITING Verified 12/30/23 11:12 [From AUGMENTIN] Assessment and Plan *Assessment and plan (1) Junctional rhythm: Status: Acute Category: Medical Code(s): I49.8 - Other specified cardiac arrhythmias (2) UTI (urinary tract infection): Status: Acute Qualifiers: Hematuria presence: without hematuria Urinary tract infection type: site unspecified Qualified Code(s): N39.0 - Urinary tract infection, site not specified Category: Medical Code(s): N39.0 - Urinary tract infection, site not specified (3) Hypoxemia: Status: Acute Category: Medical Code(s): R09.02 - Hypoxemia (4) Acute hypokalemia: Status: Acute Category: Medical Code(s): E87.6 - Hypokalemia (5) Acute intractable headache: Status: Acute Qualifiers: Headache type: unspecified Qualified Code(s): R51.9 - Headache, unspecified Category: Medical Code(s): R51.9 - Headache, unspecified (6) Thyroid cancer: Status: Acute Category: Medical Code(s): C73 - Malignant neoplasm of thyroid gland (7) Hypertension: Status: Acute Qualifiers: Hypertension type: primary hypertension Qualified Code(s): I10 - Essential (primary) hypertension Category: Medical Code(s): I10 - Essential (primary) hypertension (8) Anxiety: Status: Acute Category: Medical Code(s): F41.9 - Anxiety disorder, unspecified Plan 1. Asymptomatic, nocturnal junctional rhythm. -Telemetry this morning shows sinus bradycardia in the 50s -Check echocardiogram -Repeat troponin is normal -TSH noted to be elevated (hypothyroidism) despite being on replacement 2. UTI -On ceftriaxone 3. Hypokalemia, resolved -Likely related to recent torsemide medication usage 3. Hypertension with recent elevation -Possibly related to vandetanib (chemo treatment for thyroid cancer) 4. Cardiac murmur/aortic stenosis -echo pending 5. Hypothyroidism -Despite supplementation, TSH is elevated. Concerned for medication compliance. 6. Difficulty finding words with possible vascular dementia -Likely needs closer monitoring of medication compliance and possible outpatient neurology work-up. Check echo. See below. EF is normal, no further evaluation of elevated troponin this time. Moderate Aortic stenosis. Will need repeat echo in 6 months. Be careful with diuresis due to risk of sudden hypotension. Junctional rhythm is asymptomatic. Recommend 2-week event monitor at time of discharge. Labile hypertension likely related to vandetanib which is to be stopped. Recommend home monitoring with early follow-up in 2 weeks. Lower extremity edema and hypokalemia likely medication related. Recommend discontinuing nifedipine and torsemide and just increase the patient's valsartan if needed. Echo Conclusion Normal biventricular systolic function. Mild LA dilation. Moderate (JOSE by continuity equation is 1.2 cm.. Peak velocity 2.8 m/s. Mean AV gradient 18 mmHg. Max AV gradient 28 mmHg). Mild AI, mild PI. Mildly dilated ascending aorta (4.0 cm in diameter). In the setting of moderate and dilated ascending aorta, serial TTE evaluations at 6-months interval is recommended. Electronically signed by : Hyun De La Cruz MD 02/06/2024 11:48:31 Nothing further to add at this time. See above recommendations.
--- NOTE | 2024-02-06 09:38 | HMH.OTEV ---
OT Inpatient Evaluation Rehab OT IP Evaluation Start: 02/05/24 16:18 Freq: ONCE Status: Active Protocol: Document 02/06/24 09:28 [email or web address] (Rec: 02/06/24 09:38 [facility] [id number]) Rehab OT IP Assessment Subjective History Pt oriented x3 on arrival and agreeable to evaluation. Pt was admitted to [facility] on due to a headache. Pt history and physical report : Ms. Guerrier is an 84-year-old female with history of lumbar stenosis, thyroid answer, hypertension, anxiety, hypothyroid who presents to the ER complaining of severe headache. Headache began this morning. Denies thunderclap but states the headache is severe. It is progressively worsened since wakening up this morning. Has not missed any doses up to last night of her home medications but did not take her home medications this morning. On arrival to the ER, found to have severely elevated blood pressure. Systolic of 197 on arrival. All complaining of nausea. Medically managed in the ER with no significant improvement. Labs showing hypokalemia. While being worked up in the ER, patient's O2 sats dropped to the mid 80s on room air. Necessitating 2 L oxygen which is new for her. Given her electrolyte disturbance, new oxygen requirement, and persistent hypertension, medicine consulted for admission and further management. Family at bedside including her son and daughter supplement history. States that Ms. Guerrier continues to be unsteady and dizzy on her feet . Denies any known fever, cough, chest pain, shortness of breath. Patient appears quite fatigued on evaluation. This is unlike her. They state that she said over the past day or 2 she has just not felt well. Subjective Prior to admission to hospital , pt reports living at home with her son. Pt's son works during the day but stays home with her at night. Pt reports being independent with all ADLs and IADLs. Pt has ~10 stairs to second level in the home with railing and reports having no difficulty using them. Pt reports occasionally using a cane for functional transfers, but typically just uses furniture for stabilization. Pt reports that they still engage in driving around town. Objective Patient Orientation Place,Name,Birthday Right Upper Extremity Gross ROM WFL Left Upper Extremity Gross ROM WFL Assist Level Supervision/Stand by Transfer Training Sit/Stand Transfer Assist Level Contact Guard/Hand Hold Lower Body Dressing Ability Independent Performing Toilet Hygiene Ability Independent Overall Commode/Toilet Transfer Ability Standby Assistance Commode/Toilet Transfer Technique Sit to/from Ambulatory Commode/Toilet Transfer Assistive Grab Bars Devices Rehab OT IP prob,goals,plan Problems Date of Evaluation: 02/06/24 Rehab Potential Rehab Potential Innapropriate for Skilled Therapy Equipment Needs Assistive Devices Rolling / Wheeled Walker Discharge Plan OT Discharge Plan Pt appears to be at baseline and will not continue to be seen for OT services while at [facility]. Once medically stable, pt could return living at home with her son. Pt would benefit most from a evaluation. Pt is recommended for a walker to provide support and increase safety during functional transfers. Eval Complexity Eval Charge Codes 16501 - Low Complexity PHYSICIAN CERTIFICATION: I certify the specified therapy services for [place] are required, authorized, and reviewed every 30 days.
--- NOTE | 2024-02-06 09:54 | HMH.PTEV ---
Physical Therapy Evaluation Rehab PT IP Evaluation Start: 02/05/24 16:18 Freq: ONCE Status: Active Protocol: Document 02/06/24 09:38 [facility] (Rec: 02/06/24 09:54 [facility] [id number]) Subjective/History History History Per H&P: Ms. Guerrier is an 84- year-old female with history of lumbar stenosis, thyroid answer, hypertension, anxiety, hypothyroid who presents to the ER complaining of severe headache. Headache began this morning. Denies thunderclap but states the headache is severe. It is progressively worsened since wakening up this morning. Has not missed any doses up to last night of her home medications but did not take her home medications this morning. On arrival to the ER, found to have severely elevated blood pressure. Systolic of 197 on arrival. All complaining of nausea. Medically managed in the ER with no significant improvement. Labs showing hypokalemia. While being worked up in the ER, patient's O2 sats dropped to the mid 80s on room air. Necessitating 2 L oxygen which is new for her. Given her electrolyte disturbance, new oxygen requirement, and persistent hypertension, medicine consulted for admission and further management. Subjective Subjective Pt lives in a 2 story home with 4 MANE home. Pt was IND with all mobility prior to admission with intermittent use of SPC. Pt still driving short distances. Denies falls in past 30 days. Pt lives with her son who works FT. New diagnosis of cancer in past 12 No months? Rehab PT IP Eval Objective Appearance Patient Behavior Appropriate,Cooperative Patient Orientation Person,Place Difficulty following instructions none Speech Pattern Clear Ambulation Patient Able to Ambulate Yes Ambulation Observation Ambulation Distance (feet) 30 Ambulation Assistive Device None Ambulation Ability Contact Guard/Hand Hold Balance Ability to Arise Able, uses arms to help Sitting Balance Steady, safe Standing Balance Steady, wide stance Dynamic Sitting Balance Ability Good Dynamic Standing Balance Ability Good Transfers Bed Transfer Ability Independent Rehab PT IP prob,goals,plan Problems Date of Evaluation: 02/06/24 Rehab Potential Rehab Potential Innapropriate for Skilled Therapy Discharge Plan PT Discharge Plan Pt safe to d/c home when deemed medically necessary d/t current level of mobility, home set-up, and family support. Pt ambulated using furniture with some balance deficits noted. Recommending pt use RW to maximize safety. PT updated CM on pt's need for RW. Pt not appropriate for skilled acute care PT at this time d/t pt?s mobility being at baseline. Eval Complexity Eval Charge Codes 03783 - Moderate Complexity PHYSICIAN CERTIFICATION: I certify the specified therapy services for [place] are required, authorized, and reviewed every 30 days.
--- NOTE | 2024-02-06 10:05 | P.DS_ITS ---
General Admission date:: 02/05/24 Discharge date: 02/06/24 HPI HPI HPI: Ms. Guerrier is an 84-year-old female with history of lumbar stenosis, thyroid answer, hypertension, anxiety, hypothyroid who presents to the ER complaining of severe headache. Headache began this morning. Denies thunderclap but states the headache is severe. It is progressively worsened since wakening up this morning. Has not missed any doses up to last night of her home medications but did not take her home medications this morning. On arrival to the ER, found to have severely elevated blood pressure. Systolic of 197 on arrival. All complaining of nausea. Medically managed in the ER with no significant improvement. Labs showing hypokalemia. While being worked up in the ER, patient's O2 sats dropped to the mid 80s on room air. Necessitating 2 L oxygen which is new for her. Given her electrolyte disturbance, new oxygen requirement, and persistent hypertension, medicine consulted for admission and further management. Family at bedside including her son and daughter supplement history. States that Ms. Guerrier continues to be unsteady and dizzy on her feet. Denies any known fever, cough, chest pain, shortness of breath. Patient appears quite fatigued on evaluation. This is unlike her. They state that she said over the past day or 2 she has just not felt well. Hospital Course Hospital Course Hospital Course: 84-year-old female who presented with headache and weakness. Found to have hypertensive urgency, hypokalemia, UTI. Discussed case with ER physician, request admission for electrolyte replacement, addressing blood pressure, and treatment of UTI. I agreed to admit for further management. Received ceftr iaxone in the ER. Blood pressure improved during admission. Symptoms resolved including her headache. Given the improvement in mobility, resolution of headache, stable to discharge home with further management as an outpatient. Provided with walker at discharge. Problems addressed as follows: Hypokalemia: - Patient reports she was having edema and saw her head sugar reprocess operator who started her on torsemide recently. Potassium 2.9 on presentation. Repeat labs ordered for the afternoon which showed an improvement to 4.4 at 2 PM on day of admission. Repleted during admission. Remained stable on morning of discharge. Slight bump in kidney function on morning of discharge to creatinine 1.4, improved to 1.0 prior to discharge home. Will continue HCTZ for fluid management and to decrease risk for further hypokalemia. Needs repeat CBC, CMP, magnesium and follow-up with PCP. Headache and reviewing the treatment of blood pressure. Responded to Tylenol and Toradol. Per my review of CT of head, no acute infarct or mass effect. No signs of hemorrhage. Hypertensive urgency: - Severely elevated on arrival. Resumed home medications including valsartan 80 mg daily, nifedipine 60 mg twice daily, additional dose of Lasix this evening. Had another spike in blood pressure in the morning however her nifedipine was inadvertently held. After receiving nifedipine, headache resolved and blood pressure normalized. Patient's symptoms resolved when her blood pressure is stable. Needs close follow-up for further adjust meds blood pressure regimen. Recommend increasing hydrochlorothiazide to 25 mg daily. Concerned that Caprelsa may be underlying some of her hypertension as this is a common side effect of that medication. Recommend holding at this time until follow-up with her oncology/thyroid team as she has been on this for over 2 years. -Cardiology evaluated during admission. Recommend follow-up with them after discharge Suspected UTI: Urine grossly abnormal with 2+ protein, negative nitrate, 4+ bacteria, 3-5 white count. Administered 1 g ceftriaxone in the ER. Transition to cefdinir to complete 5 days of antibiotics for UTI Mood disorder: Continue Lexapro 10 mg daily Hypothyroid/history of thyroid cancer: Resume levothyroxine at home regimen daily. TSH Elevated at 22. Needs close follow-up with PCP for further evaluation. Total time spent on discharge 32 minutes in counseling, documentation, chart review, and direct care with patient. Exam Data for Last 24 hours Vital signs and Labs for Last 24 Hours: Temp Pulse Resp BP Pulse Ox O2 Del Method O2 Flow Rate 99.1 F 52 L 17 137/68 93 L Room Air 2 02/06/24 07:53 02/06/24 07:53 02/06/24 07:53 02/06/24 07:53 02/06/24 07:53 02/06/24 07:53 02/05/24 20:00 Laboratory Results - last 24 hr 02/05/24 06:33: HIV 1&2 Antibody Rapid Nonreactive 02/05/24 10:33: Urine Color Yellow, Urine Appearance Clear, Urine pH 7.5, Ur Specific [place] 1.020, Urine Protein 2+ A, Urine Glucose (UA) Negative, Urine Ketones Negative, Urine Blood Negative, Urine Nitrate Negative, Urine Bilirubin Negative, Urine Urobilinogen 0.2, Ur Leukocyte Esterase Negative, Urine RBC 3-5, Urine WBC 3-5, Ur Squamous Epith Cells Occasional, Urine Bacteria 4+ 02/05/24 14:18: Sodium 132 L, Potassium 4.4 D, Chloride 94 L, Carbon Dioxide 28, Anion Gap 14.4, BUN 17, Creatinine 1.00 D, Estimated Creat Clear 42, Estimated GFR 53 L, Est GFR ( Amer) 64 D, Glucose 156 H, Calcium 7.8 L 02/06/24 04:50: WBC 10.4, RBC 4.89, Hgb 14.5, Hct 43.8, MCV 89.6, MCH 29.6, MCHC 33.1, RDW 15.2, Plt Count 352, MPV 8.0, Neut % (Auto) 66.0, Lymph % (Auto) 25.5, [place] % (Auto) 7.8, Eos % (Auto) 0.2, Baso % (Auto) 0.5, Neut # (Auto) 6.9, Lymph # (Auto) 2.7, [place] # (Auto) 0.8, Eos # (Auto) 0.0, Baso # (Auto) 0.1, Sodium 134 L, Potassium 5.1, Chloride 101, Carbon Dioxide 24, Anion Gap 14.1, BUN 28 H D, Creatinine 1.40 H D, Estimated Creat Clear 29, Estimated GFR 36 L, Est GFR ( Amer) 44 L D, Glucose 110 H D, Calcium 7.7 L, Phosphorus 5.8 H, Magnesium 2.1, Total Bilirubin 0.5, AST 24, ALT 25, Alkaline Phosphatase 72, Troponin I 0.04 H, Total Protein 7.2, Albumin 4.0, Globulin 3.2, A lbumin/Globulin Ratio 1.3, TSH 22.00 H, Free T4 Index 3.2 L, Thyroxine (T4) 9.3, T3 Uptake 34 I & O for Last 24 hours: Intake & Output 02/03/24 02/04/24 02/05/24 02/06/24 23:59 23:59 23:59 23:59 Intake Total 480 / 660 660 / 660 Output Total 700 / 700 200 / 200 Balance -220 / -40 460 / 460 Weight 61.32 kg 58.559 kg Microbiology Reports for the Last 24 Hours: Microbiology 02/05/24 10:33 Urine,Clean Catch Urine Culture - Preliminary Gram Negative Rods Constitutional Constitutional: no acute distress, thin, chronically ill appearing and cooperative *Routine HEENT Exam Head: Present normocephalic Eye: Present EOMI and PERRL ENT: Present mucous membranes moist *Routine Neck Exam Neck: Present supple; Absent lymphadenopathy *Routine Respiratory Exam Respiratory: Present CTA bilaterally; Absent rhonchi, wheezes or crackles *Routine Cardiovascular Exam Cardiovascular: Present RRR and murmur (systolic) *Routine Abdominal Exam Abdominal: Present soft and normoactive bowel sounds; Absent tenderness *Routine Rectal Exam Patient deferred: visual exam *Routine Exam Patient deferred: external exam *Routine Extremities Exam Extremities: Absent cyanosis, clubbing or edema *Routine Skin Exam Skin: Present warm; Absent rash *Routine Neurological Exam Neurological: Present alert, oriented X3 and moving all extremities; Absent altered mental status Results Data Completed and Pending Labs on day of discharge: Labs from last 24 hours 02/06/24 02/05/24 02/05/24 04:50 14:18 10:33 WBC 10.4 RBC 4.89 Hgb 14.5 Hct 43.8 MCV 89.6 MCH 29.6 MCHC 33.1 RDW 15.2 Plt Count 352 MPV 8.0 Neut % (Auto) 66.0 Lymph % (Auto) 25.5 Traverse % (Auto) 7.8 Eos % (Auto) 0.2 Baso % (Auto) 0.5 Neut # (Auto) 6.9 Lymph # (Auto) 2.7 Traverse # (Auto) 0.8 Eos # (Auto) 0.0 Baso # (Auto) 0.1 Sodium 134 L 132 L Potassium 5.1 4.4 D Chloride 101 94 L Carbon Dioxide 24 28 Anion Gap 14.1 14.4 BUN 28 H D 17 Creatinine 1.40 H D 1.00 D Estimated Creat Clear 29 42 Estimated GFR 36 L 53 L Est GFR ( Amer) 44 L D 64 D Glucose 110 H D 156 H Calcium 7.7 L 7.8 L Phosphorus 5.8 H Magnesium 2.1 Total Bilirubin 0.5 AST 24 ALT 25 Alkaline Phosphatase 72 Troponin I 0.04 H Total Protein 7.2 Albumin 4.0 Globulin 3.2 Albumin/Globulin Ratio 1.3 TSH 22.00 H Free T4 Index 3.2 L Thyroxine (T4) 9.3 T3 Uptake 34 Urine Color Yellow Urine Appearance Clear Urine pH 7.5 Ur Specific [place] 1.020 Urine Protein 2+ A Urine Glucose (UA) Negative Urine Ketones Negative Urine Blood Negative Urine Nitrate Negative Urine Bilirubin Negative Urine Urobilinogen 0.2 Ur Leukocyte Esterase Negative Urine RBC 3-5 Urine WBC 3-5 Ur Squamous Epith Cells Occasional Urine Bacteria 4+ HIV 1&2 Antibody Rapid 02/05/24 06:33 WBC RBC Hgb Hct MCV MCH MCHC RDW Plt Count MPV Neut % (Auto) Lymph % (Auto) [place] % (Auto) Eos % (Auto) Baso % (Auto) Neut # (Auto) Lymph # (Auto) Traverse # (Auto) Eos # (Auto) Baso # (Auto) Sodium Potassium Chloride Carbon Dioxide Anion Gap BUN Creatinine Estimated Creat Clear Estimated GFR Est GFR ( Amer) Glucose Calcium Phosphorus Magnesium Total Bilirubin AST ALT Alkaline Phosphatase Troponin I Total Protein Albumin Globulin Albumin/Globulin Ratio TSH Free T4 Index Thyroxine (T4) T3 Uptake Urine Color Urine Appearance Urine pH Ur Specific [place] Urine Protein Urine Glucose (UA) Urine Ketones Urine Blood Urine Nitrate Urine Bilirubin Urine Urobilinogen Ur Leukocyte Esterase Urine RBC Urine WBC Ur Squamous Epith Cells Urine Bacteria HIV 1&2 Antibody Rapid Nonreactive Preliminary micro results at discharge 02/05/24 10:33 Urine Culture - Preliminary Urine,Clean Catch Gram Negative Rods DS: Diagnosis Discharge Diagnosis (1) Junctional rhythm: Status: Acute Code(s): I49.8 - Other specified cardiac arrhythmias (2) UTI (urinary tract infection): Status: Acute Code(s): N39.0 - Urinary tract infection, site not specified Qualifiers: Hematuria presence: without hematuria Urinary tract infection type: site unspecified Qualified Code(s): N39.0 - Urinary tract infection, site not specified (3) Hypoxemia: Status: Acute Code(s): R09.02 - Hypoxemia (4) Acute hypokalemia: Status: Acute Code(s): E87.6 - Hypokalemia (5) Acute intractable headache: Status: Acute Code(s): R51.9 - Headache, unspecified Qualifiers: Headache type: unspecified Qualified Code(s): R51.9 - Headache, unspecified (6) Thyroid cancer: Status: Acute Code(s): C73 - Malignant neoplasm of thyroid gland (7) Hypertension: Status: Acute Code(s): I10 - Essential (primary) hypertension Qualifiers: Hypertension type: primary hypertension Qualified Code(s): I10 - Essential (primary) hypertension (8) Anxiety: Status: Acute Code(s): F41.9 - Anxiety disorder, unspecified Meds Home Medications and Allergies Home Medications ?Medication ?Instructions ?Recorded ?Confirmed ?Type calcitriol 0.25 mcg capsule 0.5 mcg PO DAILY 01/15/22 02/05/24 History multivitamin 1 tab PO DAILY 01/15/22 02/05/24 History nifedipine 60 mg tablet,extended 60 mg PO BID 04/03/23 02/05/24 History release aspirin 81 mg tablet,delayed 81 mg PO DAILY 09/29/23 02/05/24 History release (Sayra Low Dose Aspirin) valsartan 80 mg tablet 80 mg PO DAILY 11/21/23 02/05/24 History escitalopram oxalate 10 mg tablet 10 mg PO DAILY #90 tabs 12/25/23 02/05/24 Rx levothyroxine 112 mcg tablet 112 mcg PO DAILY 02/05/24 02/05/24 History levothyroxine 50 mcg tablet 50 mcg PO DAILY 02/05/24 02/05/24 History omeprazole 40 mg capsule,delayed 40 mg PO DAILY 02/05/24 02/05/24 History release vandetanib 100 mg tablet (Caprelsa) 200 mg PO DAILY 02/05/24 02/05/24 History cefdinir 300 mg capsule 300 mg PO BID 4 days #8 caps 02/06/24 Rx hydrochlorothiazide 25 mg tablet 25 mg PO DAILY #30 tabs 02/06/24 Rx New Prescriptions to Start Prescriptions: Khanh Saavedra hydrochlorothiazide Khanh Sams Allergies Allergy/AdvReac Type Severity Reaction Status Date / Time amoxicillin [From AUGMENTIN] Allergy Mild VOMITING Verified 12/30/23 11:12 clavulanic acid Allergy Mild VOMITING Verified 12/30/23 11:12 [From AUGMENTIN] Discharge Plan Disposition Patient Disposition: Home, Self-Care Condition: Fair Follow up Plan Follow up with: Onur Guerrero MD [Primary Care Provider] - 02/13/24 10:00 am Christopher French MD [Staff Physician] - 02/19/24 2:30 pm Prescriptions/Medication Reconciliation: New cefdinir 300 mg capsule 300 mg PO BID 4 Days Qty: 8 0RF hydrochlorothiazide 25 mg tablet 25 mg PO DAILY Qty: 30 0RF Continued aspirin [Sayra Low Dose Aspirin] 81 mg tablet,delayed release (DR/EC) 81 mg PO DAILY multivitamin Tablet 1 tab PO DAILY calcitriol 0.25 mcg capsule 0.5 mcg PO DAILY nifedipine 60 mg tablet extended release 60 mg PO BID valsartan 80 mg tablet 80 mg PO DAILY escitalopram oxalate 10 mg tablet 10 mg PO DAILY Qty: 90 0RF levothyroxine 50 mcg tablet 50 mcg PO DAILY Patient Comments: TAKE 1 TABLET 1 TIME EACH DAY WITH 112 MCG TABLET levothyroxine 112 mcg tablet 112 mcg PO DAILY Patient Comments: TAKE 1 TABLET 1 TIME EACH DAY WITH 50 MCG TABLET omeprazole 40 mg capsule,delayed release(DR/EC) 40 mg PO DAILY Held Caprelsa 100 mg tablet 200 mg PO DAILY Hold Instructions: Side effects include hypertension and hypocalcemia. Both things being experienced by patient. Recommend holding this medication until further discussion with oncologist Discontinued hydrochlorothiazide 12.5 mg tablet 12.5 mg PO DAILY Patient Comments: TAKE 1 TABLET 1 TIME EACH DAY torsemide 10 mg tablet 10 mg PO DAILY Patient Comments: TAKE 1 TABLET 1 TIME EACH DAY Other Ambulatory Orders: Home Medical Equipment (Routine) Location: None Selected Ordered By: Khanh Sams Problem Reconciliation Problems Reviewed?: Yes Patient Discharge Instructions ACTIVITY: Continue current activity DIET: continue same diet Patient Instructions: DI for Urinary Tract Infection (UTI), DI for Hypokalemia Print Language: Latvian Providers Primary Care Provider: Onur Guerrero Admit Provider: Khanh Sams Attending Provider: Khanh Sams
[2024-02-06] MEDS: NIFEdipine XL 30MG TABLET 60 MG PO (10:31)
[2024-02-06] MEDS: ACETAMINOPHEN 325MG TAB 650 MG PO (10:31)
[2024-02-06 10:33] LABS: Troponin I 0.03 ng/ml (0.00-0.034)
--- NOTE | 2024-02-06 11:48 | CARE MANAGER ---
Patient has a mobility impairment that cannot be corrected with a cane, but there is potential for ambulation with a walker.
[2024-02-06 12:00] VITALS: BP 197/75; PULSE 62; PULSE 65; RESP 16; TEMP 37.3; O2SAT 92
[2024-02-06] MEDS: HYDRALAZINE 20MG/ML VIAL 10 MG IV (12:19)
[2024-02-06 14:17] LABS: Chloride 100 mmol/L (98-107); Potassium 4.7 mmoL/L (3.5-5.1); Sodium 129 mmol/L (136-145)
[2024-02-06 14:20] LABS: Anion Gap 14.7 mEq/L (5-15); Blood Urea Nitrogen 27 mg/dl (7-17); Carbon Dioxide 19 mmol/L (22.0-30.0); Creatinine Clearance Estimated 40 mL/min (50-200); Estimated Glomerular Filt Rate 53 ml/min (>60); GFR (African American) 64 ML/MIN (>60); Glucose 157 mg/dl (74-100)
[2024-02-06 16:00] VITALS: BP 158/70; PULSE 70; PULSE 76; RESP 16; TEMP 36.3; O2SAT 92
[2024-02-07 18:13] LABS: HCV Ab Reactive (Non Reactive)
--- NOTE | 2024-02-09 14:01 | CARE MANAGER ---
Contacted patient related to hospital discharge. She states she feels better. She has new medications and we went over her medication changes and what to stop per MD. She is aware of follow up appointments, but needed to reschedule pain management and so she was transferred to their office and denied any other questions.
== END 2024-02-06 17:02 | disposition home or self-care (01) ==
LOC: ER 07:41 → 2ND 09:12
PROVIDERS: Emergency Medicine; Nurse Practitioner Family; Physician Assistant; Admitting Provider Internal Medicine Adolescent Medicine; Emergency Provider Emergency Medicine; PCP Family Medicine; Visit Provider Internal Medicine Adolescent Medicine
DX: E87.6 Hypokalemia (principal); R51.9 Headache, unspecified; N39.0 Urinary tract infection, site not specified; I10 Essential (primary) hypertension; F41.9 Anxiety disorder, unspecified; C73 Malignant neoplasm of thyroid gland; R09.02 Hypoxemia; M48.061 Spinal stenosis, lumbar region without neurogenic claudication; I49.8 Other specified cardiac arrhythmias; Z79.899 Other long term (current) drug therapy; I16.0 Hypertensive urgency; F01.50 Vascular dementia, unspecified severity, without behavioral disturbance, psychotic disturbance, mood disturbance, and anxiety; M51.16 Intervertebral disc disorders with radiculopathy, lumbar region
CPT/HCPCS: 36415; 70450; 70496; 70498; 71045; 80048; 80053; 81001; 83735; 83880; 84100; 84436; 84443; 84479; 84484; 85025; 85610; 86803; 87086; 87088; 87186; 87389; 87636; 93005; 93306; 97162; 97165; 99291; G0378; J0360; J0696; J0780; J1885; J1940; J2405; J3475; J3480; J7030; J8540; Q9967

== ENCOUNTER 2024-02-13 11:18 | Outpatient (CLI) | payer MEDICARE, SELFPAY ==
[2024-02-13 16:20] LABS: Basophils # 0.1 K/mm3 (0-0.2); Basophils % 0.7 % (0.1-2.0); Eosinophils # 0.2 K/mm3 (0.0-0.4); Eosinophils % 2.5 % (0.1-12.0); Hematocrit 44.6 % (37.0-47.0); Hemoglobin 14.7 g/dL (12.2-16.2); Lymphocytes # 1.7 K/mm3 (0.7-4.5); Lymphocytes % 20.3 % (10-50); Mean Corpuscular Hemoglobin 29.7 pg (27.0-31.2); Mean Corpuscular Volume 89.9 fl (81-99); Mean Platelet Volume 8.7 fl (7.4-10.4); Monocytes # 0.4 K/mm3 (0.1-1.0); Monocytes % 4.4 % (1.7-9.3); Neutrophils # 6.1 K/mm3 (1.8-7.8); Neutrophils % 72.1 % (37.0-80.0); Platelet Count 440 K/mm3 (142-424); Red Blood Count 4.96 M/mm3 (4.20-5.40); Red Cell Distribution Width 14.9 % (11.5-17.5); White Blood Count 8.5 K/mm3 (4.8-10.8)
[2024-02-13 16:41] LABS: Albumin Level 4.2 g/dl (3.5-5.0); Chloride 99 mmol/L (98-107); Sodium 137 mmol/L (136-145)
[2024-02-13 16:44] LABS: Alanine Aminotransferase 24 U/L (12-78); Albumin/Globulin Ratio 1.4 (1.1-1.8); Alkaline Phosphatase 88 U/L (38-126); Aspartate Amino Transferase 23 U/L (14-36); Bilirubin,Total 0.5 mg/dl (0.2-1.3); Blood Urea Nitrogen 13 mg/dl (7-17); Carbon Dioxide 26 mmol/L (22.0-30.0); Estimated Glomerular Filt Rate 69 ml/min (>60); GFR (African American) 83 ML/MIN (>60); Globulin 3.1 g/dL (1.3-3.2); Total Protein,Serum 7.3 g/dl (6.3-8.2)
[2024-02-13 16:45] LABS: Calcium 8.7 mg/dl (8.4-10.2); Glucose 100 mg/dl (74-100)
[2024-02-13 17:03] LABS: T4 (Thyroxine) 11.7 ug/dl (5.53-11.0)
== END 2024-02-13 23:59 | disposition home or self-care (01) ==
LOC: LAB.DROPOF 02-16 11:19
PROVIDERS: PCP Family Medicine; Visit Provider Family Medicine
DX: E03.9 Hypothyroidism, unspecified (principal); I10 Essential (primary) hypertension
CPT/HCPCS: 80053; 84436; 84443; 85025

== ENCOUNTER 2024-02-19 15:28 | Outpatient (CLI) | payer MEDICARE, SELFPAY | END 2024-02-19 23:59 | disposition home or self-care (01) | LOC: RT 15:29 | PROVIDERS: PCP Family Medicine; Visit Provider Physician Assistant | DX: R42 Dizziness and giddiness (principal) | CPT/HCPCS: 93225; 93227 ==

== ENCOUNTER 2024-02-23 13:11 | Outpatient (POV) | payer MEDICARE, SELFPAY ==
[2024-02-23 13:34] VITALS: BP 130/67; PULSE 64; RESP 16; O2SAT 95; BMI 23.8
--- NOTE | 2024-02-23 14:53 | EXP.PAIN.SOA ---
[facility] Disclaimer: The information contained in this section may have been updated after the patient was seen, as this information can be updated by other users. Medical History Anxiety Thyroid cancer Hypertension Surgical History Hx of fracture of wrist H/O parathyroidectomy History of cholecystectomy History of hysterectomy H/O thyroidectomy Family History Father Cancer Mother Coronary artery disease Brother Diabetes Cancer Social History Smoking Status: Never smoker alcohol intake: never substance use type: denies use current occupational status: other Travel in the last 8 weeks: None housing: house lives independently: No PM Subjective & Objective Subjective Subjective:: Patient is a pleasant 84-year-old female who presents today for follow-up. Today she rates her pain a 0 out of 10 when she is sitting however she states with any type of movement the pain does go to an 8 out of 10. She denies any new trauma or injury. Patient did previously have a lumbar epidural and Sisi that did provide at least 60% improvement and was last seen at her last visit. She does state that this is now decreased down and is still helping a little bit. She states that the back pain is more present but is still not as severe as what it had been. Patient does state that she was recently hospitalized due to elevated blood pressure. Patient states the pain was very severe and had increased headaches. She states that they did end up taking her off one of her medications and that she is scheduled for a follow-up with her thyroid doctor as well as her cancer doctor coming up. Patient did previously have thyroid cancer and had this removed and is being continually monitored. She states that her last visit was still doing good. Her Teddy has been reviewed and is appropriate. Review of Systems: General: No recent weight changes, no fever, no sleep disturbances Respiratory: No cough, no shortness of air, no recurring pulmonary infections Cardiovascular/peripheral vascular: No chest pain, no palpitations, no edema, no shortness of breath Gastrointestinal: No new onset incontinence, normal bowel movements reported Genitourinary: No new onset incontinence Musculoskeletal: Low back pain Psychiatric: [Normal mood/affect] Neurological: [Denies weakness in extremities], [denies balance issues] Pain at rest (0-10 scale): 8 Objective Objective:: Physical Exam: General: Alert and oriented x3, no acute distress, pleasant and cooperative Lungs: Respirations even and unlabored, symmetrical chest expansion Eyes: PERRL Musculoskeletal: Flexion and extension of lumbar [spine] somewhat guarded secondary to pain, [antalgic gait noted] Neurological: Speech clear, no gross sensory deficit Has patient had previous pain injection?: No Conservative treatment options previously tried: Home exercise plan Length of treatment: Longer than 12 weeks Meds Home Medications and Allergies Home Medications ?Medication ?Instructions ?Recorded ?Confirmed ?Type calcitriol 0.25 mcg capsule 0.5 mcg PO DAILY 01/15/22 02/23/24 History multivitamin 1 tab PO DAILY 01/15/22 02/23/24 History nifedipine 60 mg tablet,extended 60 mg PO BID 04/03/23 02/23/24 History release aspirin 81 mg tablet,delayed 81 mg PO DAILY 09/29/23 02/23/24 History release (Sayra Low Dose Aspirin) valsartan 80 mg tablet 80 mg PO DAILY 11/21/23 02/23/24 History escitalopram oxalate 10 mg tablet 10 mg PO DAILY #90 tabs 12/25/23 02/23/24 Rx levothyroxine 112 mcg tablet 112 mcg PO DAILY 02/05/24 02/23/24 History levothyroxine 50 mcg tablet 50 mcg PO DAILY 02/05/24 02/23/24 History omeprazole 40 mg capsule,delayed 40 mg PO DAILY 02/05/24 02/23/24 History release vandetanib 100 mg tablet (Caprelsa) 200 mg PO DAILY 02/05/24 02/23/24 History hydrochlorothiazide 25 mg tablet 25 mg PO DAILY #30 tabs 02/06/24 02/23/24 Rx torsemide 10 mg tablet 10 mg PO DAILY 02/13/24 02/23/24 History New Prescriptions to Start Prescriptions: Allergies Allergy/AdvReac Type Severity Reaction Status Date / Time amoxicillin [From AUGMENTIN] Allergy Mild VOMITING Verified 02/19/24 14:50 clavulanic acid Allergy Mild VOMITING Verified 02/19/24 14:50 [From AUGMENTIN] Assessment and Plan *Assessment and plan (1) Lumbar radiculopathy: Status: Acute Category: Medical Code(s): M54.16 - Radiculopathy, lumbar region (2) Degenerative disc disease, lumbar: Status: Acute Category: Medical Code(s): M51.36 - Other intervertebral disc degeneration, lumbar region Plan Patient will return to clinic in 1 month for reevaluation of symptoms and plan of care. Patient has been instructed to contact the clinic with any concerns before the next appointment. Dr. Fetlon has reviewed this note and agrees with this plan of care. This note was dictated using voice recognition software and make contain errors or omissions. All injections are used with Lidocaine or Bupivacaine and Depo Medrol.
== END 2024-02-23 23:59 | disposition home or self-care (01) ==
PROVIDERS: PCP Family Medicine; Visit Provider Nurse Practitioner Family
DX: R42 Dizziness and giddiness; M51.16 Intervertebral disc disorders with radiculopathy, lumbar region
CPT/HCPCS: 93270; 99212; G0463

== ENCOUNTER 2024-03-15 13:40 | Outpatient (CLI) | payer MEDICARE, SELFPAY ==
--- NOTE | 2024-03-15 13:41 | MM_ITS ---
PROCEDURE INFORMATION: Exam: MG Bilateral Screening 3D Mammography Exam date and time: 03/15/2024 1:26 PM Age: 84 years old Clinical indication: Screening examination TECHNIQUE: Imaging protocol: Bilateral Screening tomosynthesis and 2D mammography including computer-aided detection (CAD) when performed. COMPARISON: 1. MG SCREEN MAMMO W CAD BILAT 02/26/2023 10:09 AM 2. MG SCREEN MAMMO W CAD BILAT 02/13/2022 9:56 AM FINDINGS: MAMMOGRAPHY: Breast composition: The breasts are extremely dense, which lowers the sensitivity of mammography. Mass: None. Architectural distortion: None. Calcifications: No suspicious calcifications. Asymmetric density: None. Skin thickening: None. Axillary adenopathy: None. IMPRESSION: No mammographic evidence of malignancy. Annual screening is recommended unless otherwise clinically indicated. ASSESSMENT: BI-RADS Category 1: Negative.
== END 2024-03-15 23:59 | disposition home or self-care (01) ==
LOC: RAD 13:41
PROVIDERS: PCP Family Medicine; Visit Provider Family Medicine
DX: Z12.31 Encounter for screening mammogram for malignant neoplasm of breast (principal)
CPT/HCPCS: 77063; 77067

== ENCOUNTER 2024-03-17 13:35 | Outpatient (CLI) | payer MEDICARE, SELFPAY ==
[2024-03-20 11:48] LABS: HCV Ab Reactive (Non Reactive)
== END 2024-03-17 23:59 | disposition home or self-care (01) ==
LOC: LAB 13:36
PROVIDERS: PCP Family Medicine; Visit Provider Family Medicine
DX: Z11.59 Encounter for screening for other viral diseases (principal)
CPT/HCPCS: 36415; 86803

== ENCOUNTER 2024-03-22 13:23 | Outpatient (POV) | payer MEDICARE, SELFPAY ==
[2024-03-22 13:53] VITALS: BP 196/75; PULSE 58; RESP 16; O2SAT 94; BMI 25.0
--- NOTE | 2024-03-22 14:04 | EXP.PAIN.SOA ---
[facility] Disclaimer: The information contained in this section may have been updated after the patient was seen, as this information can be updated by other users. Medical History (Updated 03/17/24 @ 13:18 by Gianluca Nuno RN) SVT (supraventricular tachycardia) Anxiety Thyroid cancer Hypertension Surgical History Hx of fracture of wrist H/O parathyroidectomy History of cholecystectomy History of hysterectomy H/O thyroidectomy Family History Father Cancer Mother Coronary artery disease Brother Diabetes Cancer Social History Smoking Status: Never smoker alcohol intake: never substance use type: denies use current occupational status: other housing: house lives independently: No PM Subjective & Objective Subjective Subjective:: Patient is a pleasant 84-year-old female who presents today for 1 month follow-up. Today she rates her pain a 0 out of 10 while sitting however the pain immediately jumps up to at least a 5 out of 10 or more with walking or ambulation.. Patient states that she has had a fall from our last visit. Patient states that she was walking outside and stumbled over one of her steps. She does state that she has not had any significant issues from this fall. Patient states her pain is fairly constant when she is up on her feet. Patient states she does have numbness and tingling that goes into her bilateral lower extremities. She does state the pain does interfere with her ability perform activities of daily living such as cooking and cleaning. Patient did previously have a lumbar epidural in December that did provide more than 60% and has lasted up until the last couple of weeks. Patient states she is interested in repeating this injection because when she is up on her feet the pain is much more unbearable. Patient has continued to try conservative treatment including oral medications, heat and ice, topicals, at home stretching exercise for longer than 12 weeks. Her Teddy has been reviewed and is appropriate. Review of Systems: General: No recent weight changes, no fever, no sleep disturbances Respiratory: No cough, no shortness of air, no recurring pulmonary infections Cardiovascular/peripheral vascular: No chest pain, no palpitations, no edema, no shortness of breath Gastrointestinal: No new onset incontinence, normal bowel movements reported Genitourinary: No new onset incontinence Musculoskeletal: Low back pain, bilateral leg pain Psychiatric: [Normal mood/affect] Neurological: [Denies weakness in extremities], [denies balance issues] Pain at rest (0-10 scale): 5 Objective Objective:: Physical Exam: General: Alert and oriented x3, no acute distress, pleasant and cooperative Lungs: Respirations even and unlabored, symmetrical chest expansion Eyes: PERRL Musculoskeletal: Flexion and extension of lumbar [spine] somewhat guarded secondary to pain, [antalgic gait noted] Neurological: Speech clear, no gross sensory deficit Has patient had previous pain injection?: No Conservative treatment options previously tried: Home exercise plan Length of treatment: Longer than 12 weeks Meds Home Medications and Allergies Home Medications ?Medication ?Instructions ?Recorded ?Confirmed ?Type calcitriol 0.25 mcg capsule 0.5 mcg PO DAILY 01/15/22 03/22/24 History multivitamin 1 tab PO DAILY 01/15/22 03/22/24 History aspirin 81 mg tablet,delayed 81 mg PO DAILY 09/29/23 03/22/24 History release (Sayra Low Dose Aspirin) valsartan 80 mg tablet 80 mg PO DAILY 11/21/23 03/22/24 History levothyroxine 112 mcg tablet 112 mcg PO DAILY 02/05/24 03/22/24 History levothyroxine 50 mcg tablet 50 mcg PO DAILY 02/05/24 03/22/24 History omeprazole 40 mg capsule,delayed 40 mg PO DAILY 02/05/24 03/22/24 History release vandetanib 100 mg tablet (Caprelsa) 200 mg PO DAILY 02/05/24 03/22/24 History torsemide 10 mg tablet 10 mg PO DAILY 02/13/24 03/22/24 History tobramycin 0.3 %-dexamethasone 0.1 1 drp ophthalmic (eye) QID #5 mL 03/16/24 03/22/24 Rx % eye drops,suspension (TobraDex) hydrochlorothiazide 25 mg tablet 25 mg PO DAILY #90 tabs 03/17/24 03/22/24 Rx metoprolol succinate 25 mg 25 mg PO DAILY #90 tabs 03/17/24 03/22/24 Rx tablet,extended release 24 hr escitalopram oxalate 10 mg tablet 10 mg PO DAILY #90 tabs 03/22/24 03/22/24 Rx New Prescriptions to Start Prescriptions: Allergies Allergy/AdvReac Type Severity Reaction Status Date / Time amoxicillin (From AUGMENTIN) Allergy Mild VOMITING Verified 03/17/24 12:53 clavulanic acid (From Allergy Mild VOMITING Verified 03/17/24 12:53 AUGMENTIN) Assessment and Plan *Assessment and plan (1) Lumbar spinal stenosis: Status: Acute Qualifiers: Neurogenic claudication status: with neurogenic claudication Qualified Code(s): M48.062 - Spinal stenosis, lumbar region with neurogenic claudication Category: Medical Code(s): M48.061 - Spinal stenosis, lumbar region without neurogenic claudication (2) Lumbar radiculopathy: Status: Acute Category: Medical Code(s): M54.16 - Radiculopathy, lumbar region (3) Degenerative disc disease, lumbar: Status: Acute Category: Medical Code(s): M51.36 - Other intervertebral disc degeneration, lumbar region (4) Left leg pain: Status: Acute Category: Medical Code(s): M79.605 - Pain in left leg Plan Patient is experiencing worsening pain in her low back and bilateral lower extremities with numbness and tingling when she is up walking or moving. Patient does have symptoms consistent with spinal stenosis with neurogenic claudication symptoms. I did review over with the patient that I do believe she would benefit from repeat lumbar epidural steroid injection. Risk and benefits were discussed with the patient and she would like to proceed forward with this plan of care. Patient has tried and failed conservative therapy including continued at home exercising and stretching for longer than 12 weeks. Patient is not on any blood thinners. Patient did have elevated blood pressure during today's visit and had previously been to the ER at her last 1 month follow-up with our office due to elevated blood pressure. I did discuss with the patient over making sure that her primary care who prescribes her blood pressure medication is made aware. She states that she does have a follow-up coming up soon and that she does check her blood pressure every day at home and is generally been really good. We will follow-up with this at future visits. Patient will be scheduled for an LESI L4-L5 under fluoroscopy. Patient did previously have this in December that did provide 60% improvement and lasted over the last couple of months. Patient has been instructed to contact the clinic with any concerns before the next appointment. Dr. Bux has reviewed this note and agrees with this plan of care. This note was dictated using voice recognition software and make contain errors or omissions. All injections are used with Lidocaine or Bupivacaine and Depo Medrol.
== END 2024-03-22 23:59 | disposition home or self-care (01) ==
LOC: SC.PAIN 13:23
PROVIDERS: PCP Family Medicine; Visit Provider Nurse Practitioner Family
DX: M48.062 Spinal stenosis, lumbar region with neurogenic claudication (principal); M51.16 Intervertebral disc disorders with radiculopathy, lumbar region; M79.605 Pain in left leg; Z73.89 Other problems related to life management difficulty
CPT/HCPCS: 99212; G0463

== ENCOUNTER 2024-04-27 08:52 | Day surgery (SDC) | payer MEDICARE, SELFPAY ==
[2024-04-27 09:27] VITALS: BP 148/62; PULSE 68; RESP 16; TEMP 36.4; O2SAT 93; BMI 25.0
--- NOTE | 2024-04-27 10:07 | EXP.PAIN.PRO ---
Procedure Date: 04/27/24 Time: 09:45 Anesthesiologist:: Joe Dubon CRNA Complications:: None Pre-procedure Diagnosis:: Degenerative disc lumbar spine multilevels. Lumbar radiculopathy. Lumbar spinal stenosis. Post-procedure Diagnosis:: Same. Indications for Procedure:: Patient is a pleasant 84-year-old female who comes our clinic today for lumbar epidural steroid injection at the L4-5 level. Patient describes low lumbar back pain as constant, dull, aching. Patient also reports bilateral hip and leg radicular symptoms at times. She reports having significant relief in terms of her low back pain as well as bilateral hip and leg radicular symptoms with previous injections at the L4-5 level. She rates her pain today 10. Procedure Details:: Procedure: Lumbar epidural steroid injection under fluoroscopy Informed consent was obtained and the risks and benefits of the procedure were explained to the patient. The patient was taken to the procedure room and noninvasive monitors placed, including noninvasive blood pressure cuff and pulse oximeter. The back was viewed using C-arm Fluoroscopy and prepped using Chloraprep as a cleansing solution and the L4-L5 interspace was palpated. Skin and subcutaneous tissues were anesthetized using lidocaine 1.5% and a 25-gauge needle. After this, an 18-gauge Touhy epidural needle was placed into the L4-L5 interspace and advanced using fluoroscopic guidance and loss of resistance to air until the epidural space was encountered. After confirmation of needle placement in the epidural space, with dye, a solution containing normal saline, 3 mL and Depo-Medrol 80 mg were incrementally injected into the lumbar epidural space. The patient tolerated the procedure well with no complications. The patient was observed in the Pain Clinic and then discharged home neurologically intact. Plan and Disposition:: Patient was discharged without incident.
[2024-04-27 10:10] VITALS: BP 182/82; PULSE 65; RESP 16; TEMP 36.3; O2SAT 94
[2024-04-27] MEDS: methylPREDNISolone ACETATE 80MG/ML VIAL 80 MG (10:30)
[2024-04-27 10:32] VITALS: BP 189/75; PULSE 63; RESP 18; O2SAT 95
[2024-04-27 10:39] VITALS: BP 189/75; PULSE 63; RESP 18; O2SAT 95
== END 2024-04-27 10:10 | disposition home or self-care (01) ==
PROVIDERS: PCP Family Medicine; Visit Provider Nurse Anesthetist, Certified Registered
DX: M51.16 Intervertebral disc disorders with radiculopathy, lumbar region (principal); M48.061 Spinal stenosis, lumbar region without neurogenic claudication
CPT/HCPCS: 62323; J1010

== ENCOUNTER 2024-05-12 10:02 | Outpatient (POV) | payer MEDICARE, SELFPAY ==
--- NOTE | 2024-05-12 10:35 | PC.NURSE ---
Pt bp checked multiple times per datascope with readings of 223/99, 220/110. Manual bp obtained 200/100. Pt denies dizziness, vision changes or blurry vision, denies headache. Pt reports she took her bp medication this morning and when she checked her bp at home is was 150/80. Provider notified of bp readings, provider to room to see pt after I notified her of bp readings and above information.
[2024-05-12 11:08] VITALS: BP 200/100; PULSE 65; RESP 14; O2SAT 97; BMI 23.8
--- NOTE | 2024-05-12 11:11 | A.OFFVIS_ITS ---
[facility] Disclaimer: The information contained in this section may have been updated after the patient was seen, as this information can be updated by other users. Medical History (Updated 05/12/24 @ 11:12 by Wong Antoine MD) SVT (supraventricular tachycardia) Anxiety Thyroid cancer Hypertension Surgical History Hx of fracture of wrist H/O parathyroidectomy History of cholecystectomy History of hysterectomy H/O thyroidectomy Family History Father Cancer Mother Coronary artery disease Brother Diabetes Cancer Social History Smoking Status: Current every day smoker alcohol intake: never substance use type: denies use current occupational status: other Travel in the last 8 weeks: None housing: house lives independently: No Have you lived/traveled outside [place] in past 30 days?: No Contact w/someone who lives/traveled outside [place] past 30 days?: No Exposure to someone with infectious disease in past 14 days?: No Do you have a fever (greater than 100.4 F or 38 C)?: No Have you tested positive for COVID-19: No Exposed to someone with COVID-19 in past 14 days?: No Do you have a sore throat?: No Do you have a cough?: No Do you have any weakness?: No Do you have any diarrhea?: No Are you experiencing any unusual bleeding?: No Do you have any muscle aches/pain?: No Do you have any abdominal pain?: No Are you experiencing loss of taste or smell?: No PM Subjective & Objective Subjective Subjective:: Patient is a pleasant 84-year-old female who presents today for follow-up of lumbar epidural steroid injection L4-L5 on 04/27/2024. Today she rates her pain a 0 out of 10. She states that she has had 95% improvement following this injection and feels like it is still working wonderful. Patient states she has more energy and has been able to do housework with no problems. Patient does present today with elevated blood pressure. She is on daily blood pressure medication and states she did take it this morning. Patient does see Dr. Guerrero in [place]. Her Teddy has been reviewed and is appropriate. Review of Systems: General: No recent weight changes, no fever, no sleep disturbances Respiratory: No cough, no shortness of air, no recurring pulmonary infections Cardiovascular/peripheral vascular: No chest pain, no palpitations, no edema, n o shortness of breath Gastrointestinal: No new onset incontinence, normal bowel movements reported Genitourinary: No new onset incontinence Musculoskeletal: Low back pain Psychiatric: [Normal mood/affect] Neurological: [Denies weakness in extremities], [denies balance issues] Pain at rest (0-10 scale): 0 Objective Objective:: Physical Exam: General: Alert and oriented x3, no acute distress, pleasant and cooperative Lungs: Respirations even and unlabored, symmetrical chest expansion Eyes: PERRL Musculoskeletal: Flexion and extension of lumbar [spine] somewhat guarded secondary to pain, [antalgic gait noted] Neurological: Speech clear, no gross sensory deficit Has patient had previous pain injection?: Yes Percent improvement in pain since last injection: 95% Conservative treatment options previously tried: Home exercise plan Length of treatment: Longer than 12 weeks Meds Home Medications and Allergies Home Medications ?Medication ?Instructions ?Recorded ?Confirmed ?Type calcitriol 0.25 mcg capsule 0.5 mcg PO DAILY 01/15/22 05/12/24 History multivitamin 1 tab PO DAILY 01/15/22 05/12/24 History aspirin 81 mg tablet,delayed 81 mg PO DAILY 09/29/23 05/12/24 History release (Sayra Low Dose Aspirin) valsartan 80 mg tablet 80 mg PO DAILY 11/21/23 05/12/24 History levothyroxine 112 mcg tablet 112 mcg PO DAILY 02/05/24 05/12/24 History levothyroxine 50 mcg tablet 50 mcg PO DAILY 02/05/24 05/12/24 History vandetanib 100 mg tablet (Caprelsa) 200 mg PO DAILY 02/05/24 05/12/24 History torsemide 10 mg tablet 10 mg PO DAILY 02/13/24 05/12/24 History tobramycin 0.3 %-dexamethasone 0.1 1 drp ophthalmic (eye) QID #5 mL 03/16/24 05/12/24 Rx % eye drops,suspension (TobraDex) hydrochlorothiazide 25 mg tablet 25 mg PO DAILY #90 tabs 03/17/24 05/12/24 Rx metoprolol succinate 25 mg 25 mg PO DAILY #90 tabs 03/17/24 05/12/24 Rx tablet,extended release 24 hr escitalopram oxalate 10 mg tablet 10 mg PO DAILY #90 tabs 03/22/24 05/12/24 Rx omeprazole 40 mg capsule,delayed See Rx Instructions .Route 04/05/24 05/12/24 Rx release .COMPLEX #90 caps New Prescriptions to Start Prescriptions: Allergies Allergy/AdvReac Type Severity Reaction Status Date / Time amoxicillin (From AUGMENTIN) Allergy Mild VOMITING Verified 05/12/24 11:10 clavulanic acid (From Allergy Mild VOMITING Verified 05/12/24 11:10 AUGMENTIN) Assessment and Plan *Assessment and plan (1) Lumbar radiculopathy: Status: Acute Category: Medical Code(s): M54.16 - Radiculopathy, lumbar region (2) Degenerative disc disease, lumbar: Status: Acute Category: Medical Code(s): M51.369 - Other intervertebral disc degeneration, lumbar region without mention of lumbar back pain or lower extremity pain Plan Patient has had significant improvement following her injection and does not require any additional interventions at this time. Patient's blood pressure was initially 227/93 and then a second manual blood pressure was given of 200/100. I did highly recommend to the patient that her and her son go down to the ER for evaluation due to the severity of her blood pressure. I did also discuss with the patient in future I would recommend she follow-up with primary care to see if she needs additional adjustment on her metoprolol that is currently 25 mg daily. Patient acknowledges understanding agrees with this plan of care. Patient does state that she will go down and be seen by the ER for evaluation. Patient will follow-up with our office in 6 weeks. Patient has been instructed to contact the clinic with any concerns before the next appointment. Dr. Felton has reviewed this note and agrees with this plan of care. This note was dictated using voice recognition software and make contain errors or omissions. All injections are used with Lidocaine, Bupivacaine and Depo Medrol. Occasionally urine drug screen is needed to verify patient's compliance with our office pain contract. This is ordered based off specific treatments related to chronic pain with the potential to abuse certain medications.
== END 2024-05-12 23:59 | disposition home or self-care (01) ==
LOC: SC.PAIN 10:03
PROVIDERS: PCP Family Medicine; Visit Provider Nurse Practitioner Family
DX: M51.16 Intervertebral disc disorders with radiculopathy, lumbar region (principal); F17.210 Nicotine dependence, cigarettes, uncomplicated
CPT/HCPCS: 99212; G0463

== ENCOUNTER 2024-05-12 10:48 | Emergency (ER) | payer MEDICARE, SELFPAY ==
[2024-05-12 11:00] VITALS: BP 210/104; BP 214/91; PULSE 62; PULSE 68; RESP 16; TEMP 36.6; O2SAT 97; BMI 23.8
[2024-05-12 11:06] VITALS: BP 210/104
--- NOTE | 2024-05-12 11:07 | PC.NURSE ---
DR ADHIKARI AT BEDSIDE
--- NOTE | 2024-05-12 11:10 | ED_ITS ---
Discharge Plan Disposition Patient Disposition: Home, Self-Care Prescriptions Prescriptions: No Action aspirin [Sayra Low Dose Aspirin] 81 mg tablet,delayed release (DR/EC) 81 mg PO DAILY torsemide 10 mg tablet 10 mg PO DAILY Patient Comments: TAKE 1 TABLET 1 TIME EACH DAY metoprolol succinate 25 mg tablet extended release 24 hr 25 mg PO DAILY Qty: 90 2RF hydrochlorothiazide 25 mg tablet 25 mg PO DAILY Qty: 90 3RF multivitamin Tablet 1 tab PO DAILY calcitriol 0.25 mcg capsule 0.5 mcg PO DAILY valsartan 80 mg tablet 80 mg PO DAILY tobramycin-dexamethasone [TobraDex] 0.3-0.1 % drops,suspension 1 drp ophthalmic (eye) QID Qty: 5 1RF escitalopram oxalate 10 mg tablet 10 mg PO DAILY Qty: 90 0RF omeprazole 40 mg capsule,delayed release(DR/EC) See Rx Instructions .ROUTE .COMPLEX Qty: 90 1RF Dose Instruction: TAKE 1 CAPSULE 1 TIME EACH DAY FOR REFLUX Rx Instructions: TAKE 1 CAPSULE 1 TIME EACH DAY FOR REFLUX levothyroxine 50 mcg tablet 50 mcg PO DAILY Patient Comments: TAKE 1 TABLET 1 TIME EACH DAY WITH 112 MCG TABLET levothyroxine 112 mcg tablet 112 mcg PO DAILY Patient Comments: TAKE 1 TABLET 1 TIME EACH DAY WITH 50 MCG TABLET Caprelsa 100 mg tablet 200 mg PO DAILY Referrals Follow up/Referrals: Onur Guerrero MD [Primary Care Provider] - See instructions Activity Restrictions/Add. Instructions Additional Instructions/Restrictions: Follow-up with your family doctor regarding this visit to the emergency department. Continue taking her blood pressure couple times a day to make sure that is staying normal. If you continue have swelling in your lower extremities and your blood pressure remains high, talk to them about increasing hydrochlorothiazide. Clinical Impressions Clinical Impression: Asymptomatic hypertension Print Language Print Language: Albanian Discharge ED Provider: Wong Antoine General Adult HPI General Chief complaint: Recheck/Abnormal Lab/Rx Stated complaint: elevated bp Time Seen by Provider: 05/12/24 11:03 Mode of Arrival: Ambulatory Source of Information: Patient Limitations: No Limitations Description of Symptoms (Recalled from ER Triage Doc. by RN): pt was at a pain management f/u appointment when her BP was 200/90, they directed her to come here. pt is hypertensive at 210/104 at this time. pt denies chest pain/SOA. pt states, I feel better than I have in a long time. pt states she is currently on PO chemo for thyroid cancer that has been ongoing x3 yrs. She receives treatment by Dr. Lord at . pt has a hx of HTN and she took her medication around 0800. History of Present Illness HPI narrative: Please note that above description of symptoms, in this electronic medical record under categorization of recalled from ER triage doctor by RN are reflective of an initial nursing assessment, however, is not reflective of my full history and physical exam that was personally taken and clarified. Consequentially, this preceding description of symptoms, which may include the patient's categorized chief complaint in the EMR, do not reflect my personal clinical impression, and the ultimate description of history of present illness and patient stated complaints should be deferred to this section of the note. Unless stated otherwise or congruent with this section of the note, additional signs, symptoms, or incongruence should be interpreted as inaccurate with my clinical impression. Related Data Home Medications ?Medication ?Instructions ?Recorded ?Confirmed calcitriol 0.25 mcg capsule 0.5 mcg PO DAILY 01/15/22 05/12/24 multivitamin 1 tab PO DAILY 01/15/22 05/12/24 aspirin 81 mg tablet,delayed 81 mg PO DAILY 09/29/23 05/12/24 release (Sayra Low Dose Aspirin) valsartan 80 mg tablet 80 mg PO DAILY 11/21/23 05/12/24 levothyroxine 112 mcg tablet 112 mcg PO DAILY 02/05/24 05/12/24 levothyroxine 50 mcg tablet 50 mcg PO DAILY 02/05/24 05/12/24 vandetanib 100 mg tablet (Caprelsa) 200 mg PO DAILY 02/05/24 05/12/24 torsemide 10 mg tablet 10 mg PO DAILY 02/13/24 05/12/24 Previous Rx's ?Medication ?Instructions ?Recorded tobramycin 0.3 %-dexamethasone 0.1 1 drp ophthalmic (eye) QID #5 mL 03/16/24 % eye drops,suspension (TobraDex) hydrochlorothiazide 25 mg tablet 25 mg PO DAILY #90 tabs 03/17/24 metoprolol succinate 25 mg 25 mg PO DAILY #90 tabs 03/17/24 tablet,extended release 24 hr escitalopram oxalate 10 mg tablet 10 mg PO DAILY #90 tabs 03/22/24 omeprazole 40 mg capsule,delayed See Rx Instructions .Route 04/05/24 release .COMPLEX #90 caps Allergies Allergy/AdvReac Type Severity Reaction Status Date / Time amoxicillin (From AUGMENTIN) Allergy Mild VOMITING Verified 05/12/24 11:10 clavulanic acid (From Allergy Mild VOMITING Verified 05/12/24 11:10 AUGMENTIN) [facility] Disclaimer: The information contained in this section may have been updated after the patient was seen, as this information can be updated by other users. Medical History (Updated 05/12/24 @ 11:12 by Wong Antoine MD) SVT (supraventricular tachycardia) Anxiety Thyroid cancer Hypertension Surgical History Hx of fracture of wrist H/O parathyroidectomy History of cholecystectomy History of hysterectomy H/O thyroidectomy Family History Father Cancer Mother Coronary artery disease Brother Diabetes Cancer Social History Smoking Status: Current every day smoker alcohol intake: never substance use type: denies use current occupational status: other Travel in the last 8 weeks: None housing: house lives independently: No Have you lived/traveled outside [place] in past 30 days?: No Contact w/someone who lives/traveled outside [place] past 30 days?: No Exposure to someone with infectious disease in past 14 days?: No Do you have a fever (greater than 100.4 F or 38 C)?: No Have you tested positive for COVID-19: No Exposed to someone with COVID-19 in past 14 days?: No Do you have a sore throat?: No Do you have a cough?: No Do you have any weakness?: No Do you have any diarrhea?: No Are you experiencing any unusual bleeding?: No Do you have any muscle aches/pain?: No Do you have any abdominal pain?: No Are you experiencing loss of taste or smell?: No Other Medical History Have you received the Flu Vaccine for this season: No Have you received the Pneumonia Vaccine: No ROS Obtained: Yes All systems reviewed & no additional complaints except as documented Physical Exam General General appearance: alert Head Head exam: atraumatic and normocephalic Eye Eye exam: Present normal appearance, PERRL and EOMI Neck Neck exam: Present normal inspection, full ROM and trachea midline Respiratory Respiratory exam: Absent respiratory distress, wheezes, stridor, accessory muscle use or prolonged expiratory phase Cardiovascular Cardiovascular exam: Present other (Pulses equal symmetric in upper and lower extremities) Abdominal Exam Abdominal exam: Present soft; Absent distention, tenderness or pulsatile mass Extremities Exam Extremities exam: Absent edema Neurological Exam Neurological exam: Present alert, oriented X3 and CN II-XII intact; Absent motor sensory deficit Skin Skin exam: Present warm and dry; Absent diaphoresis or erythema Medical Decision Making Medical Records Medical records reviewed: Yes I reviewed the patient's medical records. Screening: Per USPSTF and CDC recommendations, given the prevalence of disease in our region, it is our hospital?s policy to screen for HIV and viral Hepatitis for all patients aged 18 and over and those with ongoing risk factors. Teddy Inquiry Pt receiving controlled substance: No Teddy was queried for this patient: No Vital Signs: 05/12/24 11:00 05/12/24 11:00 05/12/24 11:06 Temperature 97.8 F Temperature Source Oral Pulse Rate 62 Pulse Rate [Left] 68 Respiratory Rate 16 Blood Pressure 214/91 H Blood Pressure [Right Arm] 210/104 H 210/104 H Blood Pressure Mean [Right Arm] 139 139 Blood Pressure Source [Right Arm] Automatic Cuff Blood Pressure Position [Right Arm] Sitting 02 Sat by Pulse Oximetry 97 97 Oxygen Delivery Method Room Air Room Air 05/12/24 11:12 Temperature 97.8 F Temperature Source Pulse Rate 70 Pulse Rate [Left] Respiratory Rate 16 Blood Pressure 214/91 H Blood Pressure [Right Arm] Blood Pressure Mean [Right Arm] Blood Pressure Source [Right Arm] Blood Pressure Position [Right Arm] 02 Sat by Pulse Oximetry Oxygen Delivery Method Orders (Tests/Meds): ORDERS Category Date Time Status HIV Combo Stat Lab 05/12/24 11:06 Ordered Hepatitis C Ab Qual. W/ RFX Stat Lab 05/12/24 11:06 Ordered Medical Decision Narrative: The a 89-year-old female presenting with asymptomatic hypertension. She states that she takes her blood pressure multiple times per day, it is usually 140 and 150 systolic. States that she went to a follow-up appointment with pain management today, 05/12. Her blood pressure was elevated there, so she recommended she go to her family doctor or the emergency department. This was despite patient being completely asymptomatic and stating that she feels much better than she has in a very long time. Patient states that she called her family doctor, family doctor recommended she come to the emergency department despite having 0 symptoms as well. Patient presents today for this. Patient still denying any symptoms states that she feels great. No worsening lower extremity edema. Initial blood pressure greater than 200 systolic. No acute distress. Cardiopulmonary exam normal other than 1+ lower extremity edema. Because patient completely asymptomatic and very well-appearing clinically, no interventions deemed necessary. No testing deemed necessary either. Appropriate for outpatient follow-up career placement services counselor disclaimer Much of this encounter note is an electronic career placement services counselor spoken language to printed text. Electronic career placement services counselor of the spoken language may permit errors. Although I have reviewed the note, some errors may still exist. Critical Care Critical Care Time Critical Care Time: No
[2024-05-12 11:12] VITALS: BP 214/91; PULSE 70; RESP 16; TEMP 36.6; O2SAT 98
== END 2024-05-12 11:17 | disposition home or self-care (01) ==
PROVIDERS: Emergency Provider Emergency Medicine; PCP Family Medicine
DX: I10 Essential (primary) hypertension (principal)
CPT/HCPCS: 99282

== ENCOUNTER 2024-06-08 20:30 | Outpatient (CLI) | payer MEDICARE, SELFPAY ==
[2024-06-08 22:39] LABS: Chloride 95 mmol/L (98-107); Sodium 134 mmol/L (136-145)
[2024-06-08 22:40] LABS: Potassium 3.6 mmoL/L (3.5-5.1)
[2024-06-08 22:42] LABS: Anion Gap 14.6 mEq/L (5-15); Blood Urea Nitrogen 20 mg/dl (7-17); Carbon Dioxide 28 mmol/L (22.0-30.0); Estimated Glomerular Filt Rate 60 ml/min (>60); GFR (African American) 73 ML/MIN (>60)
[2024-06-08 22:43] LABS: Calcium 9.6 mg/dl (8.4-10.2); Glucose 131 mg/dl (74-100); Magnesium 1.4 mg/dl (1.6-2.3)
== END 2024-06-08 23:59 | disposition home or self-care (01) ==
LOC: LAB.DROPOF 20:31
PROVIDERS: PCP Internal Medicine Nephrology; Visit Provider Internal Medicine Nephrology
DX: N18.2 Chronic kidney disease, stage 2 (mild) (principal)
CPT/HCPCS: 80048; 83735

== ENCOUNTER 2024-06-23 10:50 | Outpatient (POV) | payer MEDICARE, SELFPAY ==
--- NOTE | 2024-06-23 10:57 | A.OFFVIS_ITS ---
[facility] Disclaimer: The information contained in this section may have been updated after the patient was seen, as this information can be updated by other users. Medical History SVT (supraventricular tachycardia) Anxiety Thyroid cancer Hypertension Surgical History Hx of fracture of wrist H/O parathyroidectomy History of cholecystectomy History of hysterectomy H/O thyroidectomy Family History Father Cancer Mother Coronary artery disease Brother Diabetes Cancer Social History Smoking Status: Current every day smoker alcohol intake: never substance use type: denies use current occupational status: other Travel in the last 8 weeks: None housing: house lives independently: No PM Subjective & Objective Subjective Subjective:: Patient is a pleasant 84-year-old female who presents today for follow-up. Today she rates her pain a 0 out of 10. She denies any new falls or injuries. Overall she states that she is still been doing really well from her lumbar epidural of L4-L5 back on 04/27/2024 that did provide 95% relief. She does state that she did have increased pain on 1 day last week however it was very short-lived and she is doing well. Patient does have a little elevated blood pressure this morning but does state that she did already take her medicine. Her Teddy has been reviewed and is appropriate. Review of Systems: General: No recent weight changes, no fever, no sleep disturbances Respiratory: No cough, no shortness of air, no recurring pulmonary infections Cardiovascular/peripheral vascular: No chest pain, no palpitations, no edema, no shortness of breath Gastrointestinal: No new onset incontinence, normal bowel movements reported Genitourinary: No new onset incontinence Musculoskeletal: Low back pain Psychiatric: [Normal mood/affect] Neurological: [Denies weakness in extremities], [denies balance issues] Pain at rest (0-10 scale): 0 Objective Objective:: Physical Exam: General: Alert and oriented x3, no acute distress, pleasant and cooperative Lungs: Respirations even and unlabored, symmetrical chest expansion Eyes: PERRL Musculoskeletal: Flexion and extension of lumbar [spine] somewhat guarded secondary to pain, [antalgic gait noted] Neurological: Speech clear, no gross sensory deficit Has patient had previous pain injection?: No Conservative treatment options previously tried: Home exercise plan Length of treatment: Longer than 12 weeks Meds Home Medications and Allergies Home Medications ?Medication ?Instructions ?Recorded ?Confirmed ?Type calcitriol 0.25 mcg capsule 0.5 mcg PO DAILY 01/15/22 05/27/24 History multivitamin 1 tab PO DAILY 01/15/22 05/27/24 History aspirin 81 mg tablet,delayed 81 mg PO DAILY 09/29/23 05/27/24 History release (Sayra Low Dose Aspirin) vandetanib 100 mg tablet (Caprelsa) 200 mg PO DAILY 02/05/24 05/27/24 History omeprazole 40 mg capsule,delayed See Rx Instructions .Route 04/05/24 05/27/24 Rx release .COMPLEX #90 caps escitalopram oxalate 10 mg tablet 10 mg PO DAILY #90 tabs 05/18/24 05/27/24 Rx hydrochlorothiazide 25 mg tablet 25 mg PO DAILY #90 tabs 05/18/24 05/27/24 Rx levothyroxine 175 mcg tablet 175 mcg PO DAILY 05/26/24 05/27/24 History valsartan 160 mg tablet 160 mg PO DAILY 05/26/24 05/27/24 History nifedipine 30 mg tablet,extended 60 mg PO 05/27/24 05/27/24 History release 24 hr New Prescriptions to Start Prescriptions: Allergies Allergy/AdvReac Type Severity Reaction Status Date / Time amoxicillin (From AUGMENTIN) Allergy Mild VOMITING Verified 05/26/24 14:10 clavulanic acid (From Allergy Mild VOMITING Verified 05/26/24 14:10 AUGMENTIN) Assessment and Plan *Assessment and plan (1) Lumbar spinal stenosis: Status: Acute Qualifiers: Neurogenic claudication status: with neurogenic claudication Qualified Code(s): M48.062 - Spinal stenosis, lumbar region with neurogenic claudication Category: Medical Code(s): M48.061 - Spinal stenosis, lumbar region without neurogenic claudication (2) Lumbar radiculopathy: Status: Acute Category: Medical Code(s): M54.16 - Radiculopathy, lumbar region (3) Degenerative disc disease, lumbar: Status: Acute Category: Medical Code(s): M51.369 - Other intervertebral disc degeneration, lumbar region without mention of lumbar back pain or lower extremity pain Plan Patient continues to do well and does not require any additional injection therapy at this time. Patient will return to clinic in 3 months. Patient has been instructed to contact the clinic with any concerns before the next appointment. Dr. Felton has reviewed this note and agrees with this plan of care. This note was dictated using voice recognition software and make contain errors or omissions. All injections are used with Lidocaine, Bupivacaine and Depo Medrol. Occasionally urine drug screen is needed to verify patient's compliance with our office pain contract. This is ordered based off specific treatments related to chronic pain with the potential to abuse certain medications.
[2024-06-23 10:59] VITALS: BP 182/54; BP 186/74; PULSE 67; RESP 16; O2SAT 94; BMI 25.4
== END 2024-06-23 23:59 | disposition home or self-care (01) ==
PROVIDERS: PCP Family Medicine; Visit Provider Nurse Practitioner Family
DX: M48.062 Spinal stenosis, lumbar region with neurogenic claudication (principal); M51.16 Intervertebral disc disorders with radiculopathy, lumbar region; F17.210 Nicotine dependence, cigarettes, uncomplicated
CPT/HCPCS: 99212; G0463

== ENCOUNTER 2024-07-30 18:39 | Outpatient (CLI) | payer MEDICARE, SELFPAY ==
[2024-07-30 19:04] LABS: Hematocrit 37.3 % (37.0-47.0); Mean Corpuscular HGB Conc 32.2 g/dL (31.8-35.4); Mean Corpuscular Hemoglobin 26.8 pg (27.0-31.2); Mean Corpuscular Volume 83.4 fl (81-99); Platelet Count 382 K/mm3 (142-424); Red Blood Count 4.47 M/mm3 (4.20-5.40); Red Cell Distribution Width 16.1 % (11.5-17.5); White Blood Count 6.5 K/mm3 (4.8-10.8)
[2024-07-30 19:14] LABS: Creatinine,Urine Random 22 mg/dL (Not Estab.)
[2024-07-30 19:20] LABS: Appearance,Urine CLEAR (Clear); Bilirubin,Urine Negative (Negative); Blood, Urine NEGATIVE (Negative); Color,Urine YELLOW (Yellow); Glucose,Urine (UA) Negative (Negative); Ketones,Urine Negative (Negative); Leukocyte Esterase,Urine 1+ (Negative); Nitrate,Urine NEGATIVE (Negative); Protein,Urine 1+ (Negative); Urobilinogen,Urine 0.2 EU/dl (0.2)
[2024-07-30 19:24] LABS: Microscopic, Urine URINE MICROSCOPIC (MICROSCOPIC)
[2024-07-30 19:25] LABS: Chloride 97 mmol/L (98-107); Sodium 135 mmol/L (136-145)
[2024-07-30 19:26] LABS: Potassium 4.4 mmoL/L (3.5-5.1)
[2024-07-30 19:29] LABS: Anion Gap 13.4 mEq/L (5-15); Blood Urea Nitrogen 17 mg/dl (7-17); Calcium 9.5 mg/dl (8.4-10.2); Carbon Dioxide 29 mmol/L (22.0-30.0); Estimated Glomerular Filt Rate 53 ml/min (>60); GFR (African American) 64 ML/MIN (>60); Glucose 104 mg/dl (74-100); Phosphorous 5.3 mg/dl (2.5-4.5)
[2024-07-30 19:41] LABS: Bacteria,Urine 1+ /lpf; Squamous Epithelial Cell,Urine Occasional #/hpf (0-5)
--- OUTSIDE RECORDS SUMMARY | 2024-08-05 19:44 | XMS_ITS | Data Portability ---
Author Organization [facility] MOUNIKA Sullivan AD[facility] CLOSED Address [address] [place] [address] Care Team Providers Care Auto Mechanic Supervisor Name Role Phone LUCIEN NASRA Primary Care Provider [phone] Assessment No assessment recorded. 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 Procedures None record ed. Surgeries None record ed. Imaging None record ed. Medication Orders None record ed. Patient TargetsNo targets recorded. Patient InstructionsNo instructions recorded. Reason for Referral None Reported. Results Created Date Observation Date Name Description Value Unit Range Abnormal Flag Note LastModifiedBy Organization Detail LastModifiedTime Result Notes None recorded. Procedures Surgical History Date Name Laterality Status Provider Name and Address Organization Details Recorded Time 06/07/19 25 Injection, Intralesional completed Yanira Campos [facility] 06/07/2024 10:15:05 12/04/19 24 DAK - ED&C; Scalp,neck,hand,f oot completed Keri Kaye [facility] 12/04/2023 11:44:01 11/17/19 24 Biopsy Skin Lesion; Tangential completed [facility] 11/17/2023 14:40:16 11/17/19 24 Injection, Intralesional completed [facility] 11/17/2023 14:45:35 11/17/19 24 Destruction Premalignant Lesion(s) completed [facility] 11/17/2023 14:42:05 05/05/19 24 Biopsy Skin Lesion; Tangential completed [facility] 05/05/2023 10:02:30 05/05/19 24 Destruction Premalignant Lesion(s) completed [facility] 05/05/2023 10:02:24 Imaging Results None recorded. Procedure Notes None recorded. Medical Equipment None Reported. Allergies Allergen ID Allergen Name Allergen Category Reaction Reaction Severity Criticality Documentation Date Start Date Code Code System Note Provider Name and Address Organization Details Recorded Time 874860 Augmentin medicatio n Not available Not available Not available 05/05/2023 85761 2 [facility] 09:[facility] Medications Name Sig Start Date Stop Date Status Note LastModified by Organization Details LastModified Time prednisone 10 mg tablet TAKE 5 TABLETS 1 TIME EACH DAY FOR 7 DAYS active Not Available Not Available No t Available nifedipine ER 90 mg tablet,exten ded release active Not Available Not Available Not Available prazosin 1 mg capsule 05/05 completed Not Available Not Available Not Available prednisone 20 mg tablet TAKE 2 AND 1/2 TABLETS 1 TIME EACH DAY FOR 10 DAYS active Not Available Not Available No t Available valsartan 80 mg tablet TAKE 1 TABLET 1 TIME EACH DAY active Not Available Not Available No t Available omeprazole 40 mg capsule,princess yed release TAKE 1 CAPSULE 1 TIME EACH DAY FOR REFLUX active Not Available Not Available No t Available amiloride 5 mg tablet active Not Available Not Available No t Available potassium chloride ER 20 mEq tablet,exten ded release(part /cryst) 05/05 completed Not Available Not Available Not Available methocarbamo l 750 mg tablet active Not Available Not Available Not Available nifedipine ER 60 mg tablet,exten ded release 24 hr TAKE 1 TABLET 2 TIMES EACH DAY. DO NOT CRUSH, CHEW OR SPLIT. active Not Available Not Available No t Available torsemide 5 mg tablet active Not Available Not Available No t Available erythromycin 5 mg/gram (0.5 %) eye ointment active Not Available Not Available Not Available prednisone 50 mg tablet 05/05 completed Not Available Not Available Not Available levothyroxin e 150 mcg tablet TAKE 1 TABLET 1 TIME EACH DAY active Not Available Not Available No t Available hydrochlorot hiazide 25 mg tablet active Not Available Not Available No t Available nifedipine ER 60 mg tablet,exten ded release active Not Available Not Available Not Available lisinopril 40 mg tablet 05/05 completed Not Available Not Available Not Available calcitriol 0.25 mcg capsule TAKE 1 CAPSULE 1 TIME EACH DAY active Not Available Not Available No t Available naproxen 500 mg tablet active Not Available Not Available No t Available escitalopram 10 mg tablet active Not Available Not Available Not Available hydrochlorot hiazide 12.5 mg tablet TAKE 1 TABLET 1 TIME EACH DAY active Not Available Not Available No t Available Caprelsa 100 mg tablet active Not Available Not Available No t Available Caprelsa 300 mg tablet active Not Available Not Available No t Available Simbrinza 1 %-0.2 % eye drops,suspen elaine 05/05 completed Not Available Not Available Not Available Vitals None Recorded Social History None recorded. Functional Status None recorded. Mental Status None recorded. Family History Nothing Reported. Medical History Condition Response Skin Cancer Y Squamous Cell Carcinoma Y Basal Cell Carcinoma Y Gynecological HistoryNo gynecological history recorded. Obstetrics History GPAL:G 0 P 0 0 0 0 Past Encounters Encounter ID Performer Location Encounter Start Date Encounter Closed Date Diagnosis/Indication Diagnosis SNOMED-CT Code Diagnosis ICD10 Code Diagnosis Note [id number] ALEJANDRO Goodman, APPRENTICE [employer]EMAN THIRD STEP [facility] [address] [facility] [place] [address] 05/05/2023 09:05:46 05/05/2023 10:21:49 History of malignant neoplasm of skin 025870269 Z85.828 Last skin cancer - 09/2021 - No evidence of recurrence today- Call with any worrisome lesions or if treated lesions return- Return at regular intervals for skin exam as recommende d Multiple b enign melanocytic nevi 312061309 D22.5 - Benign moles seen on exam today - SPF 30 or higher broad-spec trum sunscreen recommende d with re-applica tion every 2 hours - Discussed sun protection measures, including wide-brimm ed hat, sun-protec tive clothing, and avoidance of sun during peak hours of 10am-4pm - Avoid tanning beds as these can increase the chances of all 3 types of skin cancer - Instructed to monitor for changes and to call us for appointmen t with any changing or worrisome lesions Seborrheic keratosis 394 344758 L82.1 - Benign overgrowth s of skin - 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 Risks, benefit, and procedure discussed with patient. Consent obtained. Actinic keratosis 051294 007 L57.0 Actinic keratoses are precancero us lesions that may progress to squamous cell carcinoma if untreated. UV light and genetics may increase risk. Treated lesions should blister, scab over, and heal within a few weeks. If treated lesion(s) does not resolve within 1-2 months, patient agrees to follow up for re-evaluat ion. [id number] [address] [place] [address] 06/17/2023 08:21:04 06/20/2023 12:23:16 [id number] ALEJANDRO Goodman APRN [address] [address] 11/17/2023 13:43:54 11/17/2023 14:46:09 History of malignant neoplasm of skin 063290171 Z85.828 last skin cancer - 04/2023 - No evidence of recurrence today- Call with any worrisome lesions or if treated lesions return- Return at regular intervals for skin exam as recommende d Multiple b enign melanocytic nevi 886531664 D22.5 - Benign moles seen on exam today - SPF 30 or higher broad-spec trum sunscreen recommende d with re-applica tion every 2 hours - Discussed sun protection measures, including wide-brimm ed hat, sun-protec tive clothing, and avoidance of sun during peak hours of 10am-4pm - Avoid tanning beds as these can increase the chances of all 3 types of skin cancer - Instructed to monitor for changes and to call us for appointmen t with any changing or worrisome lesions Seborrheic keratosis 394 716924 L82.1 - Benign overgrowth s of skin - Hereditary Senile angioma 4196240 I 78.1 - Benign blood vessel growths - Hereditary Solar lentigo 21710751 L 81.4 - Benign brown spots - Sun-induce d Neoplasm o f uncertain behavior of skin 06058469 D48.5 Recommend blade biopsy. Risks, benefit, and procedure discussed with patient. Consent obtained. Discussed the biopsy only takes the top layer of the lesion for testing. This does NOT treat the skin cancer if it is one. Advised they would need to return for more treatment given the type and depth of the skin cancer when the results come in. Actinic keratosis 022443 007 L57.0 Actinic keratoses are precancero us lesions that may progress to squamous cell carcinoma if untreated. UV light and genetics may increase risk. Treated lesions should blister, scab over, and heal within a few weeks. If treated lesion(s) does not resolve within 1-2 months, patient agrees to follow up for re-evaluat ion. 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 Frequently due to pressure such as sleeping on ear. Treatment includes avoiding pressure on ear, ILK, and excision or curettage. Recommende d a donut pillow to sleep on if can't change side you sleep on. 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 [id number] KARINA SALAZAR [address] [facility] [place], [place] [address] 06/07/2024 09:31:07 06/07/2024 10:34:33 History of malignant neoplasm of skin 763518581 Z85.828 - No evidence of recurrence today- Call with any worrisome lesions or if treated lesions return- Return at regular intervals for skin exam as recommende d most recent; 10/2023 Multiple b enign melanocytic nevi 930390881 D22.5 - Benign moles seen on exam today - SPF 30 or higher broad-spec trum sunscreen recommende d with re-applica tion every 2 hours - Discussed sun protection measures, including wide-brimm ed hat, sun-protec tive clothing, and avoidance of sun during peak hours of 10am-4pm - Avoid tanning beds as these can increase the chances of all 3 types of skin cancer - Instructed to monitor for changes and to call us for appointmen t with any changing or worrisome lesions Seborrheic keratosis 394 736806 L82.1 - Benign overgrowth s of skin - Hereditary Senile angioma 9208644 I 78.1 - Benign blood vessel growths - Hereditary Solar lentigo 99334730 L 81.4 - Benign brown spots - Sun-induce d Chondroder matitis nodularis helicis 21422030 H61.009 R52 Bx proven t reports using a donut pillow to relive pressureNo jose raul ILK injections helped Cartilage can become inflamed and cause tenderness /redness. Frequently due to pressure such as sleeping on ear. Treatment includes avoiding pressure on ear, ILK, and excision or curettage. Recommende d a donut pillow to sleep on if can't change side you sleep on. Plan for more ILK injections today. R/B/SE's discussed with patient.Co nt to use a donut pillow for sleep Health Concerns Section Related Observation LastModified by Organization Randy smith LastModified Time None Recorded Concern Status LastModified by Organization Details LastModified Time None Recorded Advance Directives Directive None Recorded Payers Encounter Date Sequence Insurance Name Policy Number Policy Christianson Covered Member ID Christianson Member ID Guarantor Name 05/05/2023 1 [employer] Frakes F Chey [id number] Frakes F Ring 06/17/2023 1 [employer] Frakes F Ring [id number] Frakes F Ring 11/17/2023 1 [employer] Frakes F Ring [id number] Frakes F Ring 12/04/2023 1 [employer] Frakes F Ring [id number] Frakes F Ring 06/07/2024 1 [employer] Frakes F Ring [id number] Frakes F Ring Notes Date Note Type Note Provider Name and Address Organization Details Recorded Time 05/05/2023 text/html Here for a full body skin examination - last skin check: {{ September 2022#}} - history of skin cancer - {{BCC SCC MM BCC and SCC* BCC and MM SCC and MM BCC, SCC, and MM}} - last skin cancer was in {{ 09/2021#}} - spots of concern today: {{ I have a place on my ear. #}} ALEJANDRO GARCIA, APPRENTICE [employer] [address] [place], [address], [facility] 05/05/2023 12:16:06 11/17/2023 text/html Here for a full body skin examination - last skin check: {{ April 2023#}}- history of skin cancer - {{BCC SCC MM BCC and SCC* BCC and MM SCC and MM BCC, SCC, and MM}}- last skin cancer was in {{ 04/2023#}}- spots of concern today: {{ I have all kinds of spots #}} ALEJANDRO GARCIA, APPRENTICE [employer] [address] [place], [address], [facility] 11/18/2023 08:49:56 12/04/2023 text/html I am here for my EDC Location: R posterior neck Bx proven Superfical BCC Path # [id number] ALEJANDRO GARCIA, APPRENTICE [employer] STEP [address] [place], [address], [facility] 12/04/2023 12:49:51 06/07/2024 text/html Here for a full body skin examination - last skin check: {{ 11/17/2023#}}- history of skin cancer - {{BCC SCC MM BCC and SCC* BCC and MM SCC and MM BCC, SCC, and MM}}- last skin cancer was in {{ 11/17/2023#}}- spots of concern today: {{ R ear#}} Here for a full body skin examination - last skin check: {{ April 2023#}}- history of skin cancer - {{BCC SCC MM BCC and SCC* BCC and MM SCC and MM BCC, SCC, and MM}}- last skin cancer was in {{ 04/2023#}}- spots of concern today: {{ I have all kinds of spots #}} ALEJANDRO GARCIA, APPRENTICE [employer]EM[employer]EP [address] [place], [address], [facility] 06/07/2024 10:47:33 OBGyn Episode No OBEpisode recorded.
--- OUTSIDE RECORDS SUMMARY | 2024-08-05 19:44 | XMS_ITS | Continuity of Care Document ---
Author Organization [facility] Address [address] [place] [address] Care Team Providers Care Bridges Supervisor Name Role Phone LUCIEN NASRA Primary Care Provider Assessment No assessment recorded. 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 Referral None record ed. Procedures None record ed. Surgeries None record ed. Imaging None record ed. Medication Orders None record ed. Patient TargetsNo targets recorded. Patient InstructionsNo instructions recorded. Reason for Referral None Reported. Procedures Surgical History Date Name Laterality Status Provider Name and Address Organization Details Recorded Time 06/07/19 25 Injection, Intralesional completed [facility] 06/07/2024 10:15:05 12/04/19 24 DAK - ED&C; Scalp,neck,hand,f oot completed Keri Kaye [facility] 12/04/2023 11:44:01 11/17/19 24 Biopsy Skin Lesion; Tangential completed [facility] 11/17/2023 14:40:16 11/17/19 24 Injection, Intralesional completed [facility] 11/17/2023 14:45:35 11/17/19 24 Destruction Premalignant Lesion(s) completed [facility] 11/17/2023 14:42:05 05/05/19 24 Biopsy Skin Lesion; Tangential completed [facility] 05/05/2023 10:02:30 05/05/19 24 Destruction Premalignant Lesion(s) completed Yanira Campos [facility] 05/05/2023 10:02:24 Imaging Results None recorded. Procedure Notes None recorded. Medical Equipment None Reported. Allergies Allergen ID Allergen Name Allergen Category Reaction Reaction Severity Criticality Documentation Date Start Date Code Code System Note Provider Name and Address Organization Details Recorded Time 078377 Augmentin medicatio n Not available Not available Not available 05/05/2023 81466 2 RxNorm Sisi Pittman [facility] 09:24:15 Medications Name Sig Start Date Stop [...] Available No t Available omeprazole 40 mg capsule,pricness yed release TAKE 1 CAPSULE 1 TIME [...] SNOMED-CT Code Diagnosis ICD10 Code Diagnosis Note [id number] ALEJANDRO Goodman, MOP HANDLE ASSEMBLER [facility] [address] [place] [address] 06/07/2024 09:31:07 06/07/2024 10:34:33 History of malignant neoplasm of skin 642541625 Z85.828 - No evidence of recurrence today- Call with any worrisome lesions or if treated lesions return- Return at regular intervals for skin exam as recommende d most recent; 10/2023 Multiple b enign melanocytic nevi 990052031 D22.5 - Benign moles seen on exam [...] changing or worrisome lesions Seborrheic keratosis 394 264294 L82.1 - Benign overgrowth s of skin - Hereditary Senile angioma 4903150 I 78.1 - Benign blood vessel growths - Hereditary Solar lentigo 52600974 L 81.4 - Benign brown spots - Sun-induce d Chondroder matitis nodularis longis 59407491 H61.009 R52 Bx proven t reports using [...] Concerns Section Related Observation LastModified by Organization Detai ls LastModified Time None Recorded Concern Status LastModified by Organization Details LastModified Time None Recorded Payers Encounter Date Sequence Insurance Name Policy Number Policy Christianson Covered Member ID Christianson Member ID Guarantor Name 06/07/2024 1 [employer] Chester F Ring [id number] Chester F Ring Notes Date Note Type Note Provider Name and Address Organization Details Recorded Time 06/07/2024 text/html Here for a full body [...] all kinds of spots #}} ALEJANDRO GARCIA, MOP HANDLE ASSEMBLER [address], [place], [address], [facility] - [facility] 06/07/2024 10:47:33 OBGyn Episode No OBEpisode recorded.
== END 2024-07-30 23:59 | disposition home or self-care (01) ==
LOC: LAB.DROPOF 18:40
PROVIDERS: PCP Internal Medicine Nephrology; Visit Provider Internal Medicine Nephrology
DX: I12.9 Hypertensive chronic kidney disease with stage 1 through stage 4 chronic kidney disease, or unspecified chronic kidney disease (principal); N18.2 Chronic kidney disease, stage 2 (mild); R80.1 Persistent proteinuria, unspecified
CPT/HCPCS: 80069; 81003; 81015; 82570; 84156; 85027; 87086; 87088; 87186

== ENCOUNTER 2024-09-16 11:15 | Outpatient (POV) | payer MEDICARE, SELFPAY ==
--- OUTSIDE RECORDS SUMMARY | 2024-09-16 11:17 | XMS_ITS | Data Portability ---
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 Plan of Treatment Reminders Order Date Submit Date Provider Last Modified By Organization Details Last Modified Time Details Appointments FOLLOW UP DAK 2024 10:20A M STEVEN GARCIA METAL CHECKER Not available Not available Not available Lab surg al pathol ogy study 2023 024 [facility], [address] [place] [address], [id number], 11/19/2023 12:06:33 surg al pathol ogy study 2023 024 [facility], [address] [place] [address], [id number], 05/07/2023 14:41:20 Referral None record ed. Procedures [...] Injection, Intralesional completed Yanira Campos [facility] 06/07/2024 10:15:05 12/04/19 24 DAK - ED&C; Scalp,neck,hand,f oot completed Keri Kaye [facility] 12/04/2023 11:44:01 11/17/19 24 Biopsy Skin Lesion; Tangential completed [facility] 11/17/2023 14:40:16 11/17/19 24 Injection, Intralesional completed [facility] 11/17/2023 14:45:35 11/17/19 24 Destruction Premalignant Lesion(s) completed [facility] 11/17/2023 14:42:05 05/05/19 24 Biopsy Skin Lesion; Tangential completed [facility] 05/05/2023 10:02:30 05/05/19 24 Destruction Premalignant Lesion(s) completed [facility] 05/05/2023 10:02:24 Imaging Results None recorded. Procedure Notes None recorded. Medical Equipment None Reported. Allergies Allergen ID Allergen Name Allergen Category Reaction Reaction Severity Criticality Documentation Date Start Date Code Code System Note Provider Name and Address Organization Details Recorded Time 836795 Augmentin medicatio n Not available Not available Not available 05/05/2023 44540 2 [facility] 09:[facility]15 Medications Name Sig Start Date [...] SNOMED-CT Code Diagnosis ICD10 Code Diagnosis Note [id number] ALEJANDRO Goodman, ELECTRONIC MUSICAL INSTRUMENT REPAIRER [facility] [address] [place] [address] 05/05/2023 09:05:46 05/05/2023 10:21:49 History of malignant neoplasm of skin 919038255 Z85.828 Last skin cancer - 09/2021 - No evidence of recurrence today- Call with any worrisome lesions or if treated lesions return- Return at regular intervals for skin exam as recommende d Multiple b enign melanocytic nevi [id number] D22.5 - Benign moles seen on exam [...] changing or worrisome lesions Seborrheic keratosis 394 430975 L82.1 - Benign overgrowth s of skin - 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 Risks, benefit, and procedure discussed with patient. Consent obtained. Actinic keratosis 134717 007 L57.0 Actinic keratoses are precancero us lesions that may progress to squamous cell carcinoma if untreated. UV light and genetics may increase risk. Treated lesions should blister, scab over, and heal within a few weeks. If treated lesion(s) does not resolve within 1-2 months, patient agrees to follow up for re-evaluat ion. [id number] DARRION LIEBERMAN MD [place] [address] [place] [address] 06/17/2023 08:21:04 06/20/2023 12:23:16 [id number] KARINA [address]AZAR [address] [place] [address] 11/17/2023 13:43:54 11/17/2023 14:46:09 History of malignant neoplasm of skin [id number] Z85.828 last skin cancer - 04/2023 - No evidence of recurrence today- Call with any worrisome lesions or if treated lesions return- Return at regular intervals for skin exam as recommende d Multiple b enign melanocytic nevi [id number] D22.5 - Benign moles seen on exam [...] changing or worrisome lesions Seborrheic keratosis 394 219898 L82.1 - Benign overgrowth s of skin - Hereditary Senile angioma 6052325 I 78.1 - Benign blood vessel growths - Hereditary Solar lentigo 12090418 L 81.4 - Benign brown spots - Sun-induce d Neoplasm o f uncertain behavior of skin 90192616 D48.5 Recommend blade biopsy. Risks, benefit, and procedure discussed with patient. Consent obtained. Discussed the biopsy only takes the top layer of the lesion for testing. This does NOT treat the skin cancer if it is one. Advised they would need to return for more treatment given the type and depth of the skin cancer when the results come in. Actinic keratosis 007 L57.0 Actinic keratoses are precancero us lesions that may progress to squamous cell carcinoma if untreated. UV light and genetics may increase risk. Treated lesions should blister, scab over, and heal within a few weeks. If treated lesion(s) does not resolve within 1-2 months, patient agrees to follow up for re-evaluat ion. 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 Frequently due to pressure such as sleeping on ear. Treatment includes avoiding pressure on ear, ILK, and excision or curettage. Recommende d a donut pillow to sleep on if can't change side you sleep on. Plan to do ILK injections today [id number] KARINA SALAZAR [facility] [address] [place] [address] 12/04/2023 11:15:50 12/04/2023 11:46:28 Squamous cell carcinoma in situ of skin [id number] D04.9 Discussed ED&C procedure with patient.Di scussed risk vs benefit of procedure, has about a 90-95% cure rate.Will monitor at upcoming visits for signs of recurrence . [id number] KARINA SALAZAR [place] [address] [place] [address] 06/07/2024 09:31:07 06/07/2024 10:34:33 History of malignant neoplasm of skin 039026905 Z85.828 - No evidence of recurrence today- Call with any worrisome lesions or if treated lesions return- Return at regular intervals for skin exam as recommende d most recent; 10/2023 Multiple b enign melanocytic nevi [id number] D22.5 - Benign moles seen on exam [...] changing or worrisome lesions Seborrheic keratosis 394 221954 L82.1 - Benign overgrowth s of skin - Hereditary Senile angioma 4756810 I 78.1 - Benign blood vessel growths - Hereditary Solar lentigo 41372260 L 81.4 - Benign brown spots - Sun-induce d Chondroder matitis nodularis helicis 27830034 H61.009 R52 Bx proven t reports using [...] Recorded Advance Directives Directive None Recorded Payers Insurance Date Sequence Insurance Name Policy Number Policy Christianson Covered Member ID Christianson Member ID Guarantor Name 06/04/2024 1 [employer] [place] [id number] [place] [employer] [place] 06/04/2024 [employer] (MEDICARE REPLACEMENT/A DVANTAGE - PPO) [place] [employer] [place] [id number] [place] [employer] Notes Date Note Type Note [...] place on my ear. #}} ALEJANDRO GARCIA, ELECTRONIC MUSICAL INSTRUMENT REPAIRER [address] [place], [address], [facility] 05/05/2023 12:16:06 11/17/2023 text/html Here for a full body skin examination - last skin check: {{ April 2023#}}- history of skin cancer - {{BCC SCC MM BCC and SCC* BCC and MM SCC and MM BCC, SCC, and MM}}- last skin cancer was in {{ 04/2023#}}- spots of concern today: {{ I have all kinds of spots #}} ALEJANDRO GARCIA, ELECTRONIC MUSICAL INSTRUMENT REPAIRER [address] [place], [address], [facility] 11/18/2023 08:49:56 12/04/2023 text/html I am here for my EDC Location: R posterior neck Bx proven Superfical BCC Path # [id number] ALEJANDRO GARCIA, ELECTRONIC MUSICAL INSTRUMENT REPAIRER [address] [place], [address], [facility] 12/04/2023 12:49:51 06/07/2024 text/html Here for [...] all kinds of spots #}} ALEJANDRO GARCIA, ELECTRONIC MUSICAL INSTRUMENT REPAIRER [address] [place], [address], [facility] 06/07/2024 10:47:33 OBGyn Episode No OBEpisode recorded.
--- NOTE | 2024-09-16 11:21 | EXP.PAIN.SOA ---
[facility] Disclaimer: The information contained in this section may have been updated after the patient was seen, as this information can be updated by other users. Medical History (Updated 08/11/24 @ 14:00 by Kaylynn Trevino RN) Aortic stenosis SVT (supraventricular tachycardia) Anxiety Thyroid cancer Hypertension Surgical History Hx of fracture of wrist H/O parathyroidectomy History of cholecystectomy History of hysterectomy H/O thyroidectomy Family History Father Cancer Mother Coronary artery disease Brother Diabetes Cancer Social History Smoking Status: Current every day smoker alcohol intake: never substance use type: denies use current occupational status: other Travel in the last 8 weeks?: None housing: house lives independently: No PM Subjective & Objective Subjective Subjective:: patient is a pleasant 84-year-old female who presents today for 3-month follow-up. Today she rates her pain a 0 out of 10. She denies any new trauma or injury. She states overall she has continued to do well from our last visit and denies any new falls or changes. She does state that she is scheduled to have a heart valve replaced coming up towards the end of September. Patient did have her last lumbar epidural L4-L5 on April 27 that did provide 95% improvement. She still feels like this has been very beneficial and is continuing to help. Patient is using her cane for assistance with ambulating. Her Teddy has been reviewed and is appropriate. Review of Systems: General: No recent weight changes, no fever, no sleep disturbances Respiratory: No cough, no shortness of air, no recurring pulmonary infections Cardiovascular/peripheral vascular: No chest pain, no palpitations, no edema, no shortness of breath Gastrointestinal: No new onset incontinence, normal bowel movements reported Genitourinary: No new onset incontinence Musculoskeletal: Low back pain Psychiatric: [Normal mood/affect] Neurological: [Denies weakness in extremities], [denies balance issues] Pain at rest (0-10 scale): 0 Objective Objective:: Physical Exam: General: Alert and oriented x3, no acute distress, pleasant and cooperative Lungs: Respirations even and unlabored, symmetrical chest expansion Eyes: PERRL Musculoskeletal: Flexion and extension of lumbar spine within normal limits Neurological: Speech clear, no gross sensory deficit Has patient had previous pain injection?: No Conservative treatment options previously tried: Home exercise plan Length of treatment: Longer than 12 weeks Meds Home Medications and Allergies Home Medications ?Medication ?Instructions ?Recorded ?Confirmed ?Type calcitriol 0.25 mcg capsule 0.5 mcg PO DAILY 01/15/22 08/11/24 History multivitamin 1 tab PO DAILY 01/15/22 08/11/24 History aspirin 81 mg tablet,delayed 81 mg PO DAILY 09/29/23 08/11/24 History release (Sayra Low Dose Aspirin) vandetanib 100 mg tablet (Caprelsa) 200 mg PO DAILY 02/05/24 08/11/24 History hydrochlorothiazide 25 mg tablet 25 mg PO DAILY #90 tabs 05/18/24 08/11/24 Rx levothyroxine 175 mcg tablet 175 mcg PO DAILY 05/26/24 08/11/24 History valsartan 160 mg tablet 160 mg PO DAILY 05/26/24 08/11/24 History omeprazole 40 mg capsule,delayed 40 mg PO DAILY 06/23/24 08/11/24 History release magnesium oxide 500 mg capsule 500 mg PO DAILY 08/11/24 08/11/24 History nifedipine 60 mg tablet,extended 60 mg PO DAILY #30 tabs 08/11/24 08/11/24 Rx release escitalopram oxalate 10 mg tablet 10 mg PO DAILY #90 tabs 08/20/24 Rx New Prescriptions to Start Prescriptions: Allergies Allergy/AdvReac Type Severity Reaction Status Date / Time amoxicillin (From AUGMENTIN) Allergy Mild VOMITING Verified 08/11/24 13:22 clavulanic acid (From Allergy Mild VOMITING Verified 08/11/24 13:22 AUGMENTIN) Assessment and Plan *Assessment and plan (1) Lumbar radiculopathy: Status: Acute Category: Medical Code(s): M54.16 - Radiculopathy, lumbar region (2) Degenerative disc disease, lumbar: Status: Acute Category: Medical Code(s): M51.369 - Other intervertebral disc degeneration, lumbar region without mention of lumbar back pain or lower extremity pain Plan Patient has continued to do well from her lumbar epidural in March and has already gotten continued relief for longer than 5 months. I did discuss with her that we would give her a longer break between visits today and that we would follow-up with her in about 6 months. Patient agrees with this plan of care. Patient has been instructed to contact the clinic with any concerns before the next appointment. Dr. Felton has reviewed this note and agrees with this plan of care. This note was dictated using voice recognition software and make contain errors or omissions. All injections are used with Lidocaine, Bupivacaine and dexamethasone. Occasionally urine drug screen is needed to verify patient's compliance with our office pain contract. This is ordered based off specific treatments related to chronic pain with the potential to abuse certain medications.
[2024-09-16 14:47] VITALS: BP 137/67; PULSE 65; RESP 14; O2SAT 96; BMI 25.6
== END 2024-09-16 23:59 | disposition home or self-care (01) ==
LOC: SC.PAIN 11:16
PROVIDERS: PCP Family Medicine; Visit Provider Nurse Practitioner Family
DX: M51.16 Intervertebral disc disorders with radiculopathy, lumbar region (principal); F17.200 Nicotine dependence, unspecified, uncomplicated
CPT/HCPCS: 99212; G0463

== ENCOUNTER 2024-11-03 12:45 | Outpatient (RCR) | payer MEDICARE, SELFPAY | END 2025-01-10 08:00 | disposition home or self-care (01) | LOC: CR 12:45 | PROVIDERS: Visit Provider Internal Medicine | DX: I25.10 Atherosclerotic heart disease of native coronary artery without angina pectoris (principal); Z95.2 Presence of prosthetic heart valve | CPT/HCPCS: 93798 ==

== ENCOUNTER 2024-11-10 09:00 | Outpatient (CLI) | payer MEDICARE, SELFPAY ==
--- OUTSIDE RECORDS SUMMARY | 2024-10-21 10:10 | XMS_ITS | Encounter Summary ---
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 [I35.0] Procedures SC REPLACE AORTIC VALVE PERQ FEMORAL ARTRY APPROACH TAVR IMPLANTATION, AORTIC VALVE, TRANSCATHETER Kane Hidalgo MD [address] [place] [address] Phone: tel: fax: Cardiac Rag Room Supervisor [address] [place] [address] Phone: tel: Referral ID Status Reason Start Date Expiration Date Visits Re quested Visits Authorized [id number] 1 1 Encounter Details Date Type Department Care Team (Latest Contact Info) Description 10/21/2024 10:10 AM EDT - 10/22/2024 12:18 PM EDT Hospital Encounter [facility] H Inpatient [address] [place] [address] Kane Hidalgo MD [address] [place] [address] Nonrheumatic aortic valve stenosis Discharge Disposition: Home or Self Care Social History Tobacco Use Types Packs/Day Years Used Date Smoking Tobacco: Never Smokeless Tobacco: Never Alcohol Use Standard Drinks/Week Comments Never 0 (1 standard drink = 0.6 oz pur e alcohol) PHQ-2 Answer Date Recorded Patient Health Questionnaire-2 Score 0 08/23/2024 PHQ-9 Answer Date Recorded Patient Health Questionnaire-9 Score 0 08/23/2024 PHQ-2A Answer Date Recorded Depression Risk 0 07/21/2023 Education Answer Date Recorded What is the highest level of school you have completed or the highest degree you have received? 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 Not on file Not on jessica e documented as of this encounter Last Filed Vital Signs Vital Sign Reading Time Taken Comments Blood Pressure 158/58 10/22/2024 7:00 AM EDT Pulse 73 10/22/2024 7:00 AM EDT Temperature 36.6 C (97.9 F) 10/22/2024 7:00 AM EDT Respiratory Rate 26 10/22/2024 7:00 AM EDT Oxygen Saturation 90% 10/22/2024 7:00 AM EDT Inhaled Oxygen Concentration - - Weight 68 kg (149 lb 14.6 oz) 10/22/2024 6:00 AM EDT Height 157.5 cm (5' 2 ) 10/21/2024 10:37 AM EDT Body Mass Index 27.42 10/21/2024 10:37 AM EDT documented in this encounter Functional Status * Calculated C-SSRS Risk Score (Lifetime/Recent) Answer Date of Assessment Author No Risk Indicated 10/22/2024 7:32 AM EDT Venkata Duong, KASSI * Question Answer Date of Assessment Author 1. Wish to be (Past 1 Month) No 025 7:32 AM EDT Venkata Duong, RN 2. Non-Specific Active Suici olya Thoughts (Past 1 Month) No 10/22/2024 7:32 AM EDT Venkata Duong , KASSI 6. Suicidal Behavior (Lifetime) No 7:32 AM EDT Venkata Duong, KASSI documented as of this encounter Discharge Instructions * Discharge Instructions* Khanh Galindo APRN - 10/21/2024 1:29 PM EDT TAVR Discharge Instructions Discharge Instructions/Restrictions: Activity & Incision Instructions: For 1 weeks, do not lift anything heavier than 10 pounds (about the weight of a gallon of milk). Do not drive for 24 hours after procedure. You can shower within the next 24 hours. Do not submerge your incision in water. No tub baths, hot tubs or swimming pools for 7-10 days. If your incision has a dressing over it, you may remove those later today and shower. You do NOT need to place a new dressing over it. It will heal from the inside out. Every day, check the area around your incision site for signs of infection or problems. If bleeding from groin site occurs, hold pressure and contact the Structural Team at [phone]. If after hours, call [phone]. For emergencies, call 911. Follow up: You will have an echocardiogram and follow-up with the Structural Team in 1 month. If you have not received a follow up appointment at the time of discharge, they will be in contact with you in the next few days via phone or mail reminder. If you do not hear from someone within 3-5 days, call the [facility] at [phone] for more information. Please call Rivas Martin RN, with any other questions. Medication Instructions: Antibiotics are required prior to all dental visits. Take Medication exactly as instructed in your discharge packet Do not take any medications that have not been ordered for you. This means do not take other people's medication, illegal drugs or substances. The following information is obtained directly from the [employer]. https://www.heart.org/en/health-topics/infective-endocarditis What is Infective Endocarditis? Infective endocarditis (IE), also called bacterial endocarditis, is an infection caused by bacteriathat enter the bloodstream and settle in the heart lining, a heart valve or a blood vessel. IE is uncommon, but people with some heart conditions have a greater risk of developing it. Risk factors for developing IE include: - Heart valve disease. - Previous heart valve surgery. - Congenital heart disease. - Intravenous drug use. - Previous history of IE. Dental Procedures and Infective Endocarditis People with the highest risk for poor outcomes from IE may be prescribed antibiotics (IE prophylaxis) prior to certain dental procedures to reduce their risk of developing it. These include procedures that involve manipulation of gingival (gum) tissue or the periapical region (area around the roots) of teeth, or perforation of the oral mucosa. Antibiotic prophylaxis is reasonable before the above-mentioned dental procedures for people with heart valve disease who have any of the following: - Prosthetic cardiac valves, including transcatheter-implanted prostheses and homografts. - Prosthetic material used for heart valve repair, such as annuloplasty rings, chords or clips. - Previous IE. - Unrepaired cyanotic congenital heart defect ( defects with oxygen levels lower than normal) or repaired congenital heart defect, with residual shunts or valvular regurgitation at the site adjacent to the site of a prosthetic patch or prosthetic device. - Cardiac transplant with valve regurgitation due to a structurally abnormal valve. - Except for the conditions listed above, antibiotic prophylaxis before dental procedures is not recommended for any other types of congenital heart disease. In addition, antibiotic prophylaxis is not recommended for patients with valvular heart disease whoare at high risk of IE for nondental procedures (e.g., JESUS, esophagogastroduodenoscopy, colonoscopy, or cystoscopy) in the absence of active infection. You can reduce the risk of IE by maintaining good oral health through regular professional dental care and the use of dental products such as manual, powered and ultrasonic toothbrushes; dental floss; and other plaque-removal devices. Please see table below for antibiotic prophylactic regimen options. Single dose regimen 30-60 minutes prior to dental procedure. Situation Agent Dose Oral Amoxicillin 2g Unable to take oral medication (choose one) Ampicillin Cefazolin or ceftriaxone 2g IM or IV 1g IM or IV Allergic to penicillin or ampicillin - Oral regimen (choose one) Cephalexin Azithromycin or clarithromycin Doxycycline 2g 500 mg 100 mg Allergic to penicillin and ampicillin and unable to take oral medication (choose one) Cefazolin or ceftriaxone 1g IM or IV Please note that clindamycin is no longer recommended for antibiotic prophylaxis for a dental procedure. documented in this encounter Medications at Time of Discharge ASPIRIN 81 MG chewable tablet Chew 1 tablet daily. calcitriol (Rocaltrol) 0.25 MCG capsuleIndications:Post surgical hypoparathyroidism (CMS/HCC) Take 2 capsules (0.5 mcg) by mouth daily. 180 capsule 3 5 07/07/19 26 calcium carbonate (Tums Ultra) 1000 MG chewable tablet Chew 3 tablets 2 times a day. 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 30 tablet 11 4 03/09/20 25 escitalopram (Lexapro) 10 MG tablet Take 1 tablet by mouth nightly. 2 hydroCHLOROthiazide (HYDRODiuril) 25 MG tablet Take 1 tablet by mouth every morning. levothyroxine (Synthroid, Levoxyl) 175 MCG tablet Take 1 tablet (175 mcg) by mouth 1 (one) time each day. 90 tablet 1 5 magnesium oxide (Mag-Ox) 400 (240 Mg) MG tablet Take 1 tablet by mouth every morning. 5 Multiple Vitamins-Minerals (multivitamin with minerals) tablet Take 1 tablet by mouth every morning. NIFEdipine XL (Procardia XL) 60 MG 24 hr tabletIndications:Essen tial hypertension Take 1 tablet by mouth every evening. Do not crush, chew, or split. 90 tablet 1 5 omeprazole (PriLOSEC) [address] capsule Take 1 capsule by mouth daily. 2 valsartan (Diovan) 320 MG tabletIndications:Essen tial hypertension Take 1 tablet by mouth daily. 90 tablet 1 5 ondansetron ODT (Zofran-ODT) 4 MG disintegrating tablet Dissolve 1 tablet on the tongue every 8 hours as needed for nausea or vomiting for up to 7 days. 20 tablet 11/03/19 25 documented as of this encounter Miscellaneous Notes * Mil Martino - Venkata Duong RN - 10/22/2024 11:25 AM EDT Images from the original note were not included. [id number] Heart Valve Problems: Aortic Stenosis Aortic stenosis means your aortic valve has a problem opening. The aortic valve is one of the heart?s four valves. It's on the left side of the heart. It sits between the left lower chamber (left ventricle) and the large blood vessel that sends blood to the body (aorta). With aortic stenosis, the left ventricle has to work harder to push the blood through the valve. In some cases, this extra work will make the muscle of the ventricle thicken. In time, the extra work can tire the heart and causethe heart muscle to weaken. Stenosis usually gets worse slowly, over many years. But sometimes, it can quickly get worse. Open aortic valve with stenosis (viewed from above). Cross section of heart showing aortic valve with stenosis. Possible causes Calcium deposits can form on the aortic valve as you get older. These deposits make the valve stiffand hard to open. In some cases, you may have been born with an abnormal aortic valve. Or your aortic valve may have been damaged by rheumatic fever or a heart infection. Radiation therapy used as treatment for cancers such as lymphoma, may be a cause. Treating aortic stenosis In many cases, treatment won?t be needed unless you have symptoms. If you do have symptoms, medicines may help ease them. If the stenosis is severe, your healthcare provider may advise surgery to replace the valve. Or you may have a catheter-based procedure (transcatheter aortic valve replacement or TAVR) to replace the valve, even if you don?t have symptoms. Last Reviewed Date: 2023 00:00:00 ?? [id number] The [employer]. All rights reserved. This information is not intended as a substitute for professional medical care. Always follow your healthcare professional's instructions. * Discharge Summary - Kaylynn Chung APRN - 10/22/2024 11:20 AM EDT Images from the original note were not included. Hospitalization Admit Date/Time: 10/21/2024 10:10 AM Admitting Attending: Kane Hidalgo Discharge Date: 10/22/24 Discharge Attending Physician: Kane Hidalgo MD PCP name and Address: Onur Guerrero MD None Referring provider name and address: No referring provider defined for this encounter. Chief Concern, Brief History of Present Illness, and Hospital Course Ms. Marya Guerrier is a 84 year old female who presents for an elective transcatheter aortic valve replacement (TAVR) per Dr. Kane Hidalgo MD. Past medical history significant for VHD with severe Aortic Stenosis, NYHA Class II-III heart failure, HTN, metastatic medullary thyroid cancer, and depression. Patient admits to worsening fatigue and shortness of breath with exertion. She notes activities around the house such as cleaning and climbing stairs illicit shortness of breath, heart racing and chest tightness/heaviness. Patient's echo and CT scan was reviewed on 09/08/2024 during valve conferenceand it was determined by our multidisciplinary team that patient has severe symptomatic aortic stenosis and would benefit from a TAVR. Patient meets criteria for TAVR, Transcatheter Aortic Valve Replacement, according to the CMS National Coverage Decision.?Case data will be extracted and entered into the NCDR Clinical Registry/[facility] Research as required by the National Coverage Decision.? NCT Identifier [id number]. Cardiac Diagnostics: Echo 08/17/2024: - LVEF 55-60%, mild diastolic dysfunction, mild-moderate aortic regurgitation, moderate aortic stenosis 31/56mmHg, JOSE 1.1cm2 ECG 07/06/2024: - SR with RBBB 14 Day Patch Monitor 06/18/2024: - Patient monitored for 13d 23h, analyzable time was 13d 14h starting on 06/18/2024 12:09 pm. Primary rhythm was Sinus bradycardia. Average heart rate was 57 bpm, Minimum heart rate was 42 bpm on Day :03:11 am, Max heart rate was 137 bpm on Day :23:22 pm SVE(s): [place] was 0.09 %, 995 total SVE(s) SV Arrhythmia(s): 43 events, longest event 19 beats on Day :48:45 pm, fastest event 137 bpm on Day :23:26 pm PVC(s): [place] was 0.01 %, 128 total PVC(s), 4 disparate morphologies Ventricular Arrhythmia(s): 2 event(s), longest event 6 beats at Day :12:10 am, fastest bpm at Day :12:10 am Physician Comments: - Agree with findings. - No sustained arrhythmias noted. - Non-sustained atrial runs (Longest of 19 beats). CTA Chest 09/08/2024: - FINDINGS: Quantification of Aortic Valve Calcium Score: 1799 Volume: 1556 Aortic Root Measurements 3-Cusp view: SHELLI 6 degrees; CAU 28 degrees Annulus area: 3.78 cm?? Annulus maximum diameter: 25.4 mm Annulus minimum diameter: 19.3 mm Annulus area based average diameter: 21.9 mm Annulus perimeter: 70.4 mm Sinus: L 37 mm, R 35 mm, N 37 mm Sinotubular junction: 36 mm Mid ascending aorta: 40 mm Annulus to sinotubular junction distance: 23 mm Left coronary height: 11 mm Right coronary height: 12 mm Thoracic aorta is normal in course. Sinotubular junction is dilated, 36 mm. Ascending aorta is alsodilated, 40 mm. Scattered mixed mural plaque, without significant stenosis. Left-sided four-vessel arch, with left vertebral artery arising arch just proximal to the left subclavian artery ostium. Nosignificant plaque in the bilateral common carotid and bilateral subclavian arteries. Main pulmonary artery is dilated, 33 mm. No large filling defect in the main, right or left pulmonary arteries. Abdominal aorta is tortuous in course, normal in caliber. Scattered small volume prominently calcified plaque in the abdominal aorta with minimal narrowing. Celiac: Severe focal stenosis proximally at the diaphragmatic crura. Normal branching. SMA: Calcified plaque, minimal stenosis. Gives rise to replaced right hepatic artery. Right renal artery: Multifocal slight dilation and minimal narrowing. Accessory inferior right renal artery, small in caliber. Left renal artery: Mixed plaque at the ostium, minimal stenosis. Similar multifocal slight dilationminimal narrowing. MICAELA: Patent. Right Iliofemoral Arteries: Common iliac artery: Minimum luminal diameter: 8 mm Calcification: Mild Tortuosity: Mild External iliac artery: Minimum luminal diameter: 7 mm Calcification: Mild Tortuosity: Moderate Common femoral artery: Minimum luminal diameter: 8 mm Calcification: Mild Left Iliofemoral Arteries: Common iliac artery: Minimum luminal diameter: 8 mm Calcification: Moderate Tortuosity: Severe External iliac artery: Minimum luminal diameter: 8 mm Calcification: None Tortuosity: Moderate Common femoral artery: Minimum luminal diameter: 7 mm Calcification: Mild Assessment and Plan: # Aortic Valve Stenosis (POA) - NYHA functional class II-III. - Symptoms: worsening fatigue, [place], palpitations, and chest tightness/heaviness. - Diagnostics as above. - Home medications: ASA 81 mg daily, Valsartan 320 mg daily, Nifedipine XL 60 mg daily Plan: - S/P Successful TAVR with 23 mm Abida 3 Ultra Bioprosthesis ([id number], Dr. Kane Hidalgo, [facility]). - bilateral groins stable without hematoma. - Stable on tele overnight with no evidence of new or worsening heart block. - CXR without pneumothoarx and good valve placement. Slight increase in atelectasis on right side. - Limited echo post-op: There is a appropriately positioned transcatheter bioprosthetic valve (23 mm Wang Abida). There is trace paravalvular leak. The peak gradient is 8 mmHg. The mean gradient is 4 mmHg. The gradient is normal for this prosthetic valve. No evidence of pericardial effusion. - Pre-op antimicrobial: Vancomycin - Antiplatelet plan: Continue ASA 81mg daily - Continue home anti-hypertensives - Follow-up with [facility] in 1 month with echo. #Hypomagnesemia #Hypokalemia - K 3.5, mag 1.8 - Likely in the setting of GI loss from increased N/V post op from ANS - Replaced sliding scale per protocol - Continue daily mag ox 400 BID Other Diagnoses: # HTN - continue home meds # Metastatic medullary thyroid cancer # Depression Surgeries and Procedures Procedures performed in this encounter Procedures Structural Heart TAVR (N/A), IMPLANTATION, AORTIC VALVE, TRANSCATHETER (N/A) FINAL REPORT PENDING AT TIME OF DISCHARGE Discharge Diagnosis Nonrheumatic aortic valve stenosis Active Hospital Problems Status post transcatheter aortic valve replacement Poor compliance with medication Hypokalemia Hypomagnesemia Essential hypertension *Nonrheumatic aortic valve stenosis Physical Exam: GENERAL: WD, WN, NAD on RA. EYES: No scleral icterus or conjunctivitis HENT: Atraumatic, normocephalic, nares patent, mucus membranes moist NECK: Supple, no JVD, no evidence of bruit bilaterally RESP/CHEST: Symmetric expansion; non labored. CTA bilaterally. CARD: regular rate and rhythm, normal S1 and S2, no murmur, rub, or gallop Extremities: Bilateral groin sites stable without hematoma. No lower extremity edema. No cyanosis or clubbing. Pedal pulses palpable +2. GI: No organomegaly or masses. Soft, Nontender, nondistended. BS present and normoactive x 4 quadrants SKIN: No rash, sores, lesions or subcutaneous nodules. NEURO: AAOx4. Motor intact and no focal deficits PSYCH: Mood and affect congruent and appropriate to situation. Right groin site 10/22 Left groin site 10/22 VITALS Visit Vitals BP (!) 158/58 (BP Location: Left arm, Patient Position: Lying) Pulse 73 Temp 36.6 ??C (97.9 ??F) (Oral) Ht 1.575 m (5' 2 ) Wt 68 kg (149 lb 14.6 oz) SpO2 90% BMI 27.42 kg/m?? LABS Recent Results (from the past week) Hemogram (CBC) Collection Time: 10/21/24 10:41 AM Result Value Ref Range WBC Count 7.03 3.70 - 10.30 10*3/uL RBC Count 5.07 3.90 - 5.20 10*6/uL HGB 13.5 11.2 - 15.7 g/dL HCT 41.4 34.0 - 45.0 % Platelet Count 392 (H) 155 - 369 10*3/uL MCV 82 79 - 98 fL MCH 26.6 26.0 - 32.0 pg MCHC 32.6 30.7 - 35.5 g/dL RDW 15.8 (H) 11.5 - 14.5 % MPV 8.9 8.8 - 12.5 fL nRBC 0.0 <=0.0 per 100 WBCs Basic metabolic panel Collection Time: 10/21/24 10:41 AM Result Value Ref Range Glucose, Plasma 116 (H) 74 - 99 mg/dL BUN, Plasma 18 8 - 23 mg/dL Creatinine, Plasma 0.91 0.60 - 1.10 mg/dL BUN/Creatinine Ratio 20 Sodium, Plasma 139 136 - 145 mmol/L Potassium, Plasma 3.9 3.6 - 4.9 mmol/L Chloride, Plasma 97 97 - 107 mmol/L CO2, Plasma 26 22 - 29 mmol/L Anion Gap 16 6 - 16 mmol/L Total Calcium, Plasma 9.2 8.9 - 10.2 mg/dL eGFRcr 63.1 mL/min/1.73m*2 N-Terminal Probnp Collection Time: 10/21/24 10:41 AM Result Value Ref Range N-Terminal, PROBNP, Plasma 496 0 - 1,799 pg/mL Type and Screen Collection Time: 10/21/24 10:41 AM Result Value Ref Range ABO/Rh A Positive Antibody Screen Negative Specimen Expiration 10/24/2024 23:59 POCT creatinine Collection Time: 10/21/24 10:46 AM Result Value Ref Range Creatinine, Point of Care 1.0 0.6 - 1.1 mg/dL POCT eGFR 56 mL/min/1.73m*2 Concrete Tester ID Jerardo Lowe Bhavana Device ID [id number] Comment ECG Adult Collection Time: 10/21/24 10:51 AM Result Value Ref Range EKG DIAGNOSIS CLASS Abnormal Ventricular Rate 62 BPM Atrial Rate 62 BPM SC Interval 160 ms QRSD Interval 128 ms QT Interval 486 ms QTC Interval 493 ms P Tiro -2 degrees R Tiro -35 degrees T Wave Tiro 4 degrees Diagnosis Sinus rhythm with premature atrial complexes Diagnosis Left axis deviation in the presence of LAFB Diagnosis Right bundle branch block Diagnosis Minimal voltage criteria for LVH, may be normal variant ( R in aVL ) Diagnosis Abnormal ECG Diagnosis Diagnosis Confirmed by Nick Tapia ([id number]) on 10/21/2024 7:47:18 PM Echo, Adult Transthoracic (TTE) Limited Collection Time: 10/21/24 2:15 PM Result Value Ref Range BSA 1.67 m2 Height 157.5 Weight 65.8 LV V1 Vmax 138.0 cm/s Ao V2 VTI 34.7 cm Ao mean PG 5 mmHg Ao V2 Vmax 166.0 cm/s Ao max PG 11 mmHg LV mean PG 4.0 mmHG LV V1 mean 91.2 cm/sec LV max PG 7.6 mmHg AV-pr VR 0.8 Ao V2 mean 103.0 cm/s ECG Adult Collection Time: 10/21/24 2:28 PM Result Value Ref Range EKG DIAGNOSIS CLASS Abnormal Ventricular Rate 49 BPM Atrial Rate 49 BPM SC Interval 176 ms QRSD Interval 138 ms QT Interval 552 ms QTC Interval 498 ms P Tiro 20 degrees R Tiro -42 degrees T Wave Tiro 9 degrees Diagnosis Sinus bradycardia Diagnosis Left axis deviation Diagnosis Right bundle branch block Diagnosis Minimal voltage criteria for LVH, may be normal variant ( R in aVL ) Diagnosis Abnormal ECG Diagnosis Diagnosis Confirmed by Nick Tapia ([id number]) on 10/21/2024 8:25:02 PM CBC Collection Time: 10/21/24 5:24 PM Result Value Ref Range WBC Count 8.58 3.70 - 10.30 10*3/uL RBC Count 4.81 3.90 - 5.20 10*6/uL HGB 12.7 11.2 - 15.7 g/dL HCT 39.6 34.0 - 45.0 % Platelet Count 322 155 - 369 10*3/uL MCV 82 79 - 98 fL MCH 26.4 26.0 - 32.0 pg MCHC 32.1 30.7 - 35.5 g/dL RDW 15.7 (H) 11.5 - 14.5 % MPV 9.3 8.8 - 12.5 fL nRBC 0.0 <=0.0 per 100 WBCs Basic metabolic panel Collection Time: 10/21/24 5:24 PM Result Value Ref Range Glucose, Plasma 108 (H) 74 - 99 mg/dL BUN, Plasma 16 8 - 23 mg/dL Creatinine, Plasma 0.84 0.60 - 1.10 mg/dL BUN/Creatinine Ratio 19 Sodium, Plasma 138 136 - 145 mmol/L Potassium, Plasma 4.2 3.6 - 4.9 mmol/L Chloride, Plasma 99 97 - 107 mmol/L CO2, Plasma 26 22 - 29 mmol/L Anion Gap 13 6 - 16 mmol/L Total Calcium, Plasma 8.4 (L) 8.9 - 10.2 mg/dL eGFRcr 69.5 mL/min/1.73m*2 CBC Collection Time: 10/22/24 12:07 AM Result Value Ref Range WBC Count 13.53 (H) 3.70 - 10.30 10*3/uL RBC Count 4.54 3.90 - 5.20 10*6/uL HGB 12.1 11.2 - 15.7 g/dL HCT 36.9 34.0 - 45.0 % Platelet Count 292 155 - 369 10*3/uL MCV 81 79 - 98 fL MCH 26.7 26.0 - 32.0 pg MCHC 32.8 30.7 - 35.5 g/dL RDW 15.8 (H) 11.5 - 14.5 % MPV 9.0 8.8 - 12.5 fL nRBC 0.0 <=0.0 per 100 WBCs Basic metabolic panel Collection Time: 10/22/24 12:07 AM Result Value Ref Range Glucose, Plasma 123 (H) 74 - 99 mg/dL BUN, Plasma 16 8 - 23 mg/dL Creatinine, Plasma 0.78 0.60 - 1.10 mg/dL BUN/Creatinine Ratio 21 Sodium, Plasma 135 (L) 136 - 145 mmol/L Potassium, Plasma 3.5 (L) 3.6 - 4.9 mmol/L Chloride, Plasma 96 (L) 97 - 107 mmol/L CO2, Plasma 26 22 - 29 mmol/L Anion Gap 13 6 - 16 mmol/L Total Calcium, Plasma 8.2 (L) 8.9 - 10.2 mg/dL eGFRcr 75.9 mL/min/1.73m*2 Magnesium Collection Time: 10/22/24 12:07 AM Result Value Ref Range Magnesium, Plasma 1.8 (L) 1.9 - 2.4 mg/dL ECG Adult - POD#1 Collection Time: 10/22/24 6:19 AM Result Value Ref Range EKG DIAGNOSIS CLASS Abnormal Ventricular Rate 75 BPM Atrial Rate 75 BPM SC Interval 152 ms QRSD Interval 124 ms QT Interval 438 ms QTC Interval 489 ms P Tiro 12 degrees R Tiro -45 degrees T Wave Tiro -12 degrees Diagnosis Normal sinus rhythm Diagnosis Right bundle branch block Diagnosis Left anterior fascicular block Diagnosis Bifascicular block Diagnosis Minimal voltage criteria for LVH, may be normal variant ( R in aVL ) Diagnosis Abnormal ECG Echo, Adult Transthoracic (TTE) Limited - POD#1 Collection Time: 10/22/24 9:50 AM Result Value Ref Range BSA 1.67 m2 Height 154.9 Weight 67.6 Ao V2 VTI 27.3 cm Ao mean PG 4 mmHg Ao V2 Vmax 139.9 cm/s Ao max PG 8 mmHg Ao V2 mean 99.6 cm/s LV V1 VTI 30.2 cm LV V1 Vmax 142.5 cm/s AV VTI Index 1.11 LV mean PG 4.3 mmHG LV V1 mean 97.3 cm/sec LV max PG 8.1 mmHg LVOT diam 21 mm LVOT AREA 3.5 cm2 SV(LVOT) 105 mL JOSE(I,D) 3.8 cm2 JOSE(VTI)/BSA_phl 2.3 cm2/m2 Medications: Medication List .. aspirin 81 MG chewable tablet Chew 1 tablet daily. calcitriol 0.25 MCG capsule Commonly known as: Rocaltrol Take 2 capsules (0.5 mcg) by mouth daily. calcium carbonate 1000 MG chewable tablet Commonly known as: Tums Ultra Chew 3 tablets 2 times a day. Caprelsa 100 MG chemo tablet Generic drug: vandetanib Take 1 tablet (100 mg total) by mouth 1 (one) time each day. escitalopram 10 MG tablet Commonly known as: Lexapro Take 1 tablet by mouth nightly. hydroCHLOROthiazide 25 MG tablet Commonly known as: HYDRODiuril Take 1 tablet by mouth every morning. levothyroxine 175 MCG tablet Commonly known as: Synthroid, Levoxyl Take 1 tablet (175 mcg) by mouth 1 (one) time each day. magnesium oxide 400 (240 Mg) MG tablet Commonly known as: Mag-Ox Take 1 tablet by mouth every morning. multivitamin with minerals tablet Take 1 tablet by mouth every morning. NIFEdipine XL 60 MG 24 hr tablet Commonly known as: Procardia XL Take 1 tablet by mouth every evening. Do not crush, chew, or split. omeprazole [address] capsule Commonly known as: PriLOSEC Take 1 capsule by mouth daily. ondansetron ODT 4 MG disintegrating tablet Commonly known as: Zofran-ODT Dissolve 1 tablet on the tongue every 8 hours as needed for nausea or vomiting for up to 7 days. valsartan 320 MG tablet Commonly known as: Diovan Take 1 tablet by mouth daily. Where to Get Your Medications These medications were sent to [facility] - [address] [id number] ondansetron ODT 4 MG disintegrating tablet Follow-Up / Post Discharge Instructions TAVR Discharge Instructions Discharge Instructions/Restrictions: Activity & Incision Instructions: For 1 weeks, do not lift anything heavier than 10 pounds (about the weight of a gallon of milk). Do not drive for 24 hours after procedure. You can shower within the next 24 hours. Do not submerge your incision in water. No tub baths, hot tubs or swimming pools for 7-10 days. If your incision has a dressing over it, you may remove those later today and shower. You do NOT need to place a new dressing over it. It will heal from the inside out. Every day, check the area around your incision site for signs of infection or problems. If bleeding from groin site occurs, hold pressure and contact the Structural Team at [phone]. If after hours, call [phone]. For emergencies, call [phone]. Follow up: You will have an echocardiogram and follow-up with the Structural Team in 1 month. If you have not received a follow up appointment at the time of discharge, they will be in contact with you in the next few days via phone or mail reminder. If you do not hear from someone within 3-5 days, call the [facility] at [phone] for more information. Please call Rivas Martin RN, with any other questions. Medication Instructions: Antibiotics are required prior to all dental visits. Take Medication exactly as instructed in your discharge packet Do not take any medications that have not been ordered for you. This means do not take other people's medication, illegal drugs or substances. The following information is obtained directly from the [employer]. https://www.heart.org/en/health-topics/infective-endocarditis What is Infective Endocarditis? Infective endocarditis (IE), also called bacterial endocarditis, is an infection caused by bacteriathat enter the bloodstream and settle in the heart lining, a heart valve or a blood vessel. IE is uncommon, but people with some heart conditions have a greater risk of developing it. Risk factors for developing IE include: - Heart valve disease. - Previous heart valve surgery. - Congenital heart disease. - Intravenous drug use. - Previous history of IE. Dental Procedures and Infective Endocarditis People with the highest risk for poor outcomes from IE may be prescribed antibiotics (IE prophylaxis) prior to certain dental procedures to reduce their risk of developing it. These include procedures that involve manipulation of gingival (gum) tissue or the periapical region (area around the roots) of teeth, or perforation of the oral mucosa. Antibiotic prophylaxis is reasonable before the above-mentioned dental procedures for people with heart valve disease who have any of the following: - Prosthetic cardiac valves, including transcatheter-implanted prostheses and homografts. - Prosthetic material used for heart valve repair, such as annuloplasty rings, chords or clips. - Previous IE. - Unrepaired cyanotic congenital heart defect ( defects with oxygen levels lower than normal) or repaired congenital heart defect, with residual shunts or valvular regurgitation at the site adjacent to the site of a prosthetic patch or prosthetic device. - Cardiac transplant with valve regurgitation due to a structurally abnormal valve. - Except for the conditions listed above, antibiotic prophylaxis before dental procedures is not recommended for any other types of congenital heart disease. In addition, antibiotic prophylaxis is not recommended for patients with valvular heart disease whoare at high risk of IE for nondental procedures (e.g., JESUS, esophagogastroduodenoscopy, colonoscopy, or cystoscopy) in the absence of active infection. You can reduce the risk of IE by maintaining good oral health through regular professional dental care and the use of dental products such as manual, powered and ultrasonic toothbrushes; dental floss; and other plaque-removal devices. Please see table below for antibiotic prophylactic regimen options. Single dose regimen 30-60 minutes prior to dental procedure. Situation Agent Dose Oral Amoxicillin 2g Unable to take oral medication (choose one) Ampicillin Cefazolin or ceftriaxone 2g IM or IV 1g IM or IV Allergic to penicillin or ampicillin - Oral regimen (choose one) Cephalexin Azithromycin or clarithromycin Doxycycline 2g 500 mg 100 mg Allergic to penicillin and ampicillin and unable to take oral medication (choose one) Cefazolin or ceftriaxone 1g IM or IV Please note that clindamycin is no longer recommended for antibiotic prophylaxis for a dental procedure. Outpatient Follow-Up Future Appointments Date Time Provider Department [place] 10/27/2024 1:40 PM [facility] 11/02/2024 11:[address] [facility] 11/02/2024 2:50 PM Vini Lord MD [facility] 11/17/2024 10:30 AM HNR[facility] THYROID RN [facility] 11/17/2024 11:00 AM Dominguez Duffy MD [facility] 11/17/2024 1:00 PM [facility]quillo [facility] 12/15/2024 11:00 AM [facility] 2 [facility] 12/15/2024 12:30 PM Ankita Vásquez PA [facility] Discharge Disposition/Condition Disposition: Home Condition: Stable (s/sx potential problems absent or manageable) I spent > 30min working on this discharge including performing physical examination, review of laboratory/imaging results with the patient, discussion of medication management, and preparation of discharge paperwork. Kaylynn Chung APRN [phone] Cosigned by Kane Hidalgo MD at 10/23/2024 9:28 AM EDT * Care Plan - Venkata Duong RN - 10/22/2024 7:43 AM EDT Problem: Adult Inpatient Plan of Care Goal: Plan of Care Review Outcome: Ongoing, Progressing Flowsheets (Taken 10/22/2024 0047 by Chanda Vasquez) Progress: improving Outcome Evaluation: Pt. was able to use bedside commode with little help Plan of Care Reviewed With: patient Goal: Patient-Specific Goal (Individualized) Outcome: Ongoing, Progressing Goal: Absence of Hospital-Acquired Illness or Injury Outcome: Ongoing, Progressing Goal: Optimal Comfort and Wellbeing Outcome: Ongoing, Progressing Goal: Readiness for Transition of Care Outcome: Ongoing, Progressing Problem: Infection Goal: Absence of Infection Signs and Symptoms Outcome: Ongoing, Progressing Problem: Fall Injury Risk Goal: Absence of Fall and Fall-Related Injury Outcome: Ongoing, Progressing Problem: Mobility Impairment Goal: Optimal Mobility Outcome: Ongoing, Progressing Problem: Pain Acute Goal: Optimal Pain Control and Function Outcome: Ongoing, Progressing Problem: Nausea and Vomiting Goal: Nausea and Vomiting Relief Outcome: Ongoing, Progressing * Care Plan - Chanda Vasquez - 10/22/2024 12:47 AM EDT Pt. Has been able to get to bed side commode with little assistance and discomfort. * Care Plan - Porter Bartlett RN - 10/21/2024 6:58 PM EDT Problem: Adult Inpatient Plan of Care Goal: Absence of Hospital-Acquired Illness or Injury Intervention: Identify and Manage Fall Risk Flowsheets (Taken 10/21/2024 1855) Safety Promotion/Fall Prevention: activity supervised clutter-free environment maintained fall prevention program maintained nonskid shoes/slippers when out of bed lighting adjusted mobility aid in reach safety round/check completed room organization consistent Problem: Adult Inpatient Plan of Care Goal: Patient-Specific Goal (Individualized) Outcome: Ongoing, Progressing Flowsheets (Taken 10/21/2024 1700) Patient/Family-Specific Goals (Include Timeframe): pt will be free of fall/injuries this shift Individualized Care Needs: safety Anxieties, Fears or Concerns: None * Nursing Note - Jerardo Lowe RN - 10/21/2024 3:56 PM EDT Patient Report given to Porter in 2TU. Patient had TAVR procedure. Right and left groin. Perclosed and dermabond. Both sites are soft, clean, dry, and intact. On 2L as she sleeps she goes into low 90's. Hr in mid 40's while sleeping and high 40's when awake, SB, no signs of heart block currently. Had Kahnh Galindo come assess patient and make sure ok to send to the floor and he is ok with her going to room. Patient GCS 15. Has had ice chips and water. Uses a cane to ambulate. Bed rest up at 1815. Needs labs at 1630. Pt has 18G in left AC and 20G in the R AC * Op Note - Nasra Gray MD - 10/21/2024 12:43 PM EDT Operative note TAVR : Date: 10/21/2024 Location: [facility] Name: Marya Guerrier, : 1940, Pre-operative Diagnosis: Problem List[1] Post-operative Diagnosis: Problem List[2] Surgeons: This procedure was performed jointly by Cardiothoracic Surgery physicians and Interventional Cardiology. The primary Cardiothoracic Surgery operator vacuum was Dr. Nasra Gray. The primary Interventional Cardiology operator vacuum was Dr. Kane Hidalgo Operation: Transcatheter aortic valve replacement (TAVR) with Abida 3 valve Size 23 mm. Indication : Severe, symptomatic aortic stenosis. Brief History: The patient is an 84 y.o. -year-old female with the above-mentioned medical history, who was referred to our valve program for management of severe symptomatic aortic stenosis. Given his comorbidity our team recommended transcatheter aortic valve replacement. The patient and family understood the be nefits and risks and agreed to proceed with the procedure. Procedure Description: The patient was taken to the operating room, placed on the operating table in supine position. Local anesthesia and sedation was used for this procedure. The patient was prepped and draped in usual surgical fashion. Using Seldinger technique and under fluoroscopy and ultrasound guidance we accessedthe right femoral artery and right femoral vein and left femoral artery. Then, using the left femoral artery we placed a pigtail catheter into the area of the right coronary cusp and we obtained a root angiography verifying our working angles. Then through the right femoral vein we placed a temporary pacing wire into the right ventricle and we verified capture. The patient received heparin, then we placed the introducer sheath through the right femoral artery, then we crossed the [place] aortic valve with J-wire exchanged over pigtail into extra small Safari wire. The Abida 3 valve and its delivery system which were checked on the back table were brought to the field and introduced to the Patient thru the right femoral access site. Once we reached the descending aorta the valve was mounted on the balloon under fluoroscopy and theentire assembly was advanced to the level of the [place] aortic valve and positioned so that the middle marker on the balloon is sitting at the leann of right coronary cusp. The pusher mechanism was pulled back under fluoroscopy, and rapid V-pacing pacing was started, once the hemodynamic response was verified, the balloon was inflated and held at maximum inflation for 4 seconds, then the balloon was deflated and rapid V-pacing was stopped and the patient hemodynamics recovered quickly. Transthoracic echo showed good functioning valve with a mean of 5 mmHg and no evidence of paravalvular leak. Root angiography showed good filling of coronary ostia with no paravalvular leak. The patienttolerated the procedure. The access catheter removed and hemostasis was obtained with Perclose system on the right femoral artery and the left femoral artery and pressure on the right femoral vein. The patient was taken to the recovery room and was hemodynamically stable and in sinus rhythm. 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) Hypocalcemia Hypokalemia Hypomagnesemia Poor compliance with medication At risk for prolonged QT interval syndrome Second hand smoke exposure Renal insufficiency Abnormal ECG Nonrheumatic aortic valve insufficiency PAD (peripheral artery disease) (CMS/HCC) Nephrotic range proteinuria Severe aortic stenosis Acute intractable headache Degenerative disc disease, lumbar Enlarged lymph node in neck Hypoxemia Junctional rhythm Left leg pain Low back pain Lumbar radiculopathy Lumbar spinal stenosis Neck pain on right side UTI (urinary tract infection) BMI 26.0-26.9,adult Nonrheumatic aortic valve stenosis [2] Patient Active Problem List Diagnosis Medullary carcinoma of thyroid, 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 Essential hypertension GERD (gastroesophageal reflux disease) Hyperlipidemia Anxiety disorder Borderline type 2 diabetes mellitus Allergic rhinitis Sigmoid diverticulosis Elevated tumor markers 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 (CMS/HCC) 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) Hypocalcemia Hypokalemia Hypomagnesemia Poor compliance with medication At risk for prolonged QT interval syndrome Second hand smoke exposure Renal insufficiency Abnormal ECG Nonrheumatic aortic valve insufficiency PAD (peripheral artery disease) ([facility]) Nephrotic range proteinuria Severe aortic stenosis Acute intractable headache Degenerative disc disease, lumbar Enlarged lymph node in neck Hypoxemia Junctional rhythm Left leg pain Low back pain Lumbar radiculopathy Lumbar spinal stenosis Neck pain on right side UTI (urinary tract infection) BMI 26.0-26.9,adult Nonrheumatic aortic valve stenosis * H&P - Ankita Vásquez PA - 10/21/2024 10:40 AM EDT Cardiology Admission History and Physical History of Present Illness Ms. Marya Guerrier is a 84 year old female who presents for an elective transcatheter aortic valve replacement (TAVR) per Dr. Kane Hidalgo MD. Past medical history significant for VHD with severe Aortic Stenosis, NYHA Class II-III heart failure, HTN, metastatic medullary thyroid cancer, and depression. Patient admits to worsening fatigue and shortness of breath with exertion. She notes activities around the house such as cleaning and climbing stairs illicit shortness of breath, heart racing and chest tightness/heaviness. Patient meets criteria for TAVR, Transcatheter Aortic Valve Replacement, according to the CMS National Coverage Decision.?Case data will be extracted and entered into the NCDR Clinical Registry/[facility] Research as required by the National Coverage Decision.? NCT Identifier [id number]. Cardiac Diagnostics: Echo 08/17/2024: - LVEF 55-60%, mild diastolic dysfunction, mild-moderate aortic regurgitation, moderate aortic stenosis 31/56mmHg, JOSE 1.1cm2 ECG 07/06/2024: - SR with RBBB Review of Systems: 14 point review of systems negative except as noted in HPI. Past Medical History[1] Medications: Current Outpatient Medications Medication Instructions aspirin (ASPIRIN) 81 mg, Daily calcitriol (ROCALTROL) 0.5 mcg, Oral, Daily calcium carbonate (TUMS ULTRA) 3,000 mg, 2 times daily Caprelsa 100 mg, Oral, Daily escitalopram (Lexapro) 10 MG tablet 1 tablet, Every morning levothyroxine (SYNTHROID, LEVOXYL) 175 mcg, Oral, Daily magnesium oxide (MAG-OX) 400 mg, 2 times daily Multiple Vitamins-Minerals (multivitamin with minerals) tablet 1 tablet, Every evening NIFEdipine XL (PROCARDIA XL) 60 mg, Oral, Every evening, Do not crush, chew, or split. 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 Occupation: retired [employer] Tobacco Use Smoking status: Never Smokeless tobacco: Never Vaping Use Vaping status: Never Used Substance and Sexual Activity Alcohol use: Never Drug use: Never Sexual activity: Defer Other Topics Concern Occupational Exposure No Social History Narrative Not on file Social Drivers of Health Financial Resource Strain: Not on file Food Insecurity: Not on file Transportation Needs: Not on file Physical Activity: Not on file Stress: Not on file Social Connections: Unknown (02/03/2023) Received from [facility] Family and Community Support Help with Day-to-Day Activities: Not on file Lonely or Isolated: Not on file Intimate Partner Violence: Unknown (02/03/2023) Received from [facility] Abuse Screen Unsafe at Home or Work/School: Not on file Feels Threatened by Someone?: Not on file Does Anyone Keep You from Contacting Others or Doint Things Outside the Home?: Not on file Physical Sign of Abuse Present: Not on file Housing Stability: Unknown (02/03/2023) Received from [facility] Housing Stability Current Living Arrangements: Not on file Potentially Unsafe Housing Conditions: Not on file Allergies: Allergies[4] Vitals Visit Vitals BP (!) 165/66 Pulse 66 Temp 36.6 ??C (97.8 ??F) (Oral) Ht 1.575 m (5' 2 ) Wt 66 kg (145 lb 8.1 oz) SpO2 94% BMI 26.61 kg/m?? No intake or output data in the 24 hours ending 10/21/24 1040 Physical Exam Physical Exam Vitals and nursing note reviewed. Constitutional: Appearance: Normal appearance. HENT: Head: Normocephalic and atraumatic. Nose: Nose normal. Mouth/Throat: Mouth: Mucous membranes are moist. Eyes: Conjunctiva/sclera: Conjunctivae normal. Cardiovascular: Rate and Rhythm: Normal rate and regular rhythm. Pulses: Normal pulses. Heart sounds: S1 normal and S2 normal. Murmur heard. Harsh midsystolic murmur is present with a grade of 3/6 at the upper right sternal border radiatingto the neck. Pulmonary: Effort: Pulmonary effort is normal. Breath sounds: Normal breath sounds. Abdominal: General: Abdomen is flat. Palpations: Abdomen is soft. Musculoskeletal: General: Normal range of motion. Cervical back: Neck supple. Skin: General: Skin is warm and dry. Neurological: General: No focal deficit present. Mental Status: She is alert and oriented to person, place, and time. Psychiatric: Attention and Perception: Attention normal. Mood and Affect: Mood normal. Behavior: Behavior normal. Labs and Imaging Labs in last 18 hours CBC WBC ?? Hb ?? Plt ?? Hct ?? ANC ?? INR ??, PTT ??, Anti-Xa ?? BMP Na ?? Cl ?? BUN ?? Glu ?? K ?? Co2 ?? Cr ?? Ca ?? iCa ?? Mg ??, Phos ?? Lactate ?? LFT AST ?? AlkPhos ?? T Prot ?? ALK ?? Bili ?? Alb ?? D.Bili ?? ECG: No electrocardiogram results found for the past 3 days. Assessment and Plan #Aortic Stenosis --Severe, symptomatic aortic stenosis --Discussed in multi-disciplinary conference, deemed suitable for TAVR --TAVR procedure discussed at length including risks, consent signed --Proceed with TAVR Caity Vásquez PA-C Structural Heart [1] Past Medical History: Diagnosis Date Anxiety GERD (gastroesophageal reflux disease) Hepatitis Hep C treated with interferon Hepatitis C High blood pressure Hyperparathyroid Liver disease Medullary thyroid carcinoma Sinus problem [2] Past Surgical History: Procedure Laterality Date GALLBLADDER SURGERY HYSTERECTOMY NECK MASS EXCISION Right 11/02/2019 PARATHYROIDECTOMY TOTAL THYROIDECTOMY Bilateral 04/01/2017 WRIST SURGERY Left [3] Family History Problem Relation Name Age of Onset Arthritis Mother Lung cancer Father Lung cancer Brother Prostate cancer Brother Hearing loss Brother Other (ear tubes) Brother Heart Problem Brother Stroke Brother Thyroid cancer Neg Hx [4] Allergies Allergen Reactions Amoxicillin-Pot Clavulanate Unknown - Patient states they do not know rxn details Lisinopril Cough * Hospital Course - Kaylynn Chung, KARINA - 10/20/2024 1:17 PM EDT Ms. Marya Guerrier is a 84 year old female who presents for an elective transcatheter aortic valve replacement (TAVR) per Dr. Kane Hidalgo MD. Past medical history significant for VHD with severe Aortic Stenosis, NYHA Class II-III heart failure, HTN, metastatic medullary thyroid cancer, and depression. Patient admits to worsening fatigue and shortness of breath with exertion. She notes activities around the house such as cleaning and climbing stairs illicit shortness of breath, heart racing and chest tightness/heaviness. Patient's echo and CT scan was reviewed on 09/08/2024 during valve conferenceand it was determined by our multidisciplinary team that patient has severe symptomatic aortic stenosis and would benefit from a TAVR. Patient meets criteria for TAVR, Transcatheter Aortic Valve Replacement, according to the CMS National Coverage Decision.?Case data will be extracted and entered into the [facility] Clinical Registry/[facility] Research as required by the National Coverage Decision.? NCT Identifier [id number]. Cardiac Diagnostics: Echo 08/17/2024: - LVEF 55-60%, mild diastolic dysfunction, mild-moderate aortic regurgitation, moderate aortic stenosis 31/56mmHg, JOSE 1.1cm2 ECG 07/06/2024: - SR with RBBB 14 Day Patch Monitor 06/18/2024: - Patient monitored for 13d 23h, analyzable time was 13d 14h starting on 06/18/2024 12:09 pm. Primary rhythm was Sinus bradycardia. Average heart rate was 57 bpm, Minimum heart rate was 42 bpm on Day :03:11 am, Max heart rate was 137 bpm on Day :23:22 pm SVE(s): [place] was 0.09 %, 995 total SVE(s) SV Arrhythmia(s): 43 events, longest event 19 beats on Day :48:45 pm, fastest event 137 bpm on Day :23:26 pm PVC(s): [place] was 0.01 %, 128 total PVC(s), 4 disparate morphologies Ventricular Arrhythmia(s): 2 event(s), longest event 6 beats at Day :12:10 am, fastest [id number] bpm at Day :12:10 am Physician Comments: - Agree with findings. - No sustained arrhythmias noted. - Non-sustained atrial runs (Longest of 19 beats). CTA Chest 09/08/2024: - FINDINGS: Quantification of Aortic Valve Calcium Score: 1799 Volume: 1556 Aortic Root Measurements 3-Cusp view: SHELLI 6 degrees; CAU 28 degrees Annulus area: 3.78 cm?? Annulus maximum diameter: 25.4 mm Annulus minimum diameter: 19.3 mm Annulus area based average diameter: 21.9 mm Annulus perimeter: 70.4 mm Sinus: L 37 mm, R 35 mm, N 37 mm Sinotubular junction: 36 mm Mid ascending aorta: 40 mm Annulus to sinotubular junction distance: 23 mm Left coronary height: 11 mm Right coronary height: 12 mm Thoracic aorta is normal in course. Sinotubular junction is dilated, 36 mm. Ascending aorta is alsodilated, 40 mm. Scattered mixed mural plaque, without significant stenosis. Left-sided four-vessel arch, with left vertebral artery arising arch just proximal to the left subclavian artery ostium. Nosignificant plaque in the bilateral common carotid and bilateral subclavian arteries. Main pulmonary artery is dilated, 33 mm. No large filling defect in the main, right or left pulmonary arteries. Abdominal aorta is tortuous in course, normal in caliber. Scattered small volume prominently calcified plaque in the abdominal aorta with minimal narrowing. Celiac: Severe focal stenosis proximally at the diaphragmatic crura. Normal branching. SMA: Calcified plaque, minimal stenosis. Gives rise to replaced right hepatic artery. Right renal artery: Multifocal slight dilation and minimal narrowing. Accessory inferior right renal artery, small in caliber. Left renal artery: Mixed plaque at the ostium, minimal stenosis. Similar multifocal slight dilationminimal narrowing. MICAELA: Patent. Right Iliofemoral Arteries: Common iliac artery: Minimum luminal diameter: 8 mm Calcification: Mild Tortuosity: Mild External iliac artery: Minimum luminal diameter: 7 mm Calcification: Mild Tortuosity: Moderate Common femoral artery: Minimum luminal diameter: 8 mm Calcification: Mild Left Iliofemoral Arteries: Common iliac artery: Minimum luminal diameter: 8 mm Calcification: Moderate Tortuosity: Severe External iliac artery: Minimum luminal diameter: 8 mm Calcification: None Tortuosity: Moderate Common femoral artery: Minimum luminal diameter: 7 mm Calcification: Mild Assessment and Plan: # Aortic Valve Stenosis (POA) - NYHA functional class II-III. - Symptoms: worsening fatigue, HUNTLEY, palpitations, and chest tightness/heaviness. - Diagnostics as above. - Home medications: ASA 81 mg daily, Valsartan 320 mg daily, Nifedipine XL 60 mg daily Plan: - S/P Successful TAVR with 23 mm Abida 3 Ultra Bioprosthesis ([id number], Dr. Kane Hidalgo, [facility]). - bilateral groins stable without hematoma. - Stable on tele overnight with no evidence of new or worsening heart block. - CXR without pneumothoarx and good valve placement. Slight increase in atelectasis on right side. - Limited echo post-op: There is a appropriately positioned transcatheter bioprosthetic valve (23 mm Wang Abida). There is trace paravalvular leak. The peak gradient is 8 mmHg. The mean gradient is 4 mmHg. The gradient is normal for this prosthetic valve. No evidence of pericardial effusion. - Pre-op antimicrobial: Vancomycin - Antiplatelet plan: Continue ASA 81mg daily - Continue home anti-hypertensives - [facility] 1 month with echo. #Hypomagnesemia #Hypokalemia - K 3.5, mag 1.8 - Likely in the setting of GI loss from increased N/V post op from ANS - Replaced sliding scale per protocol - Continue daily mag ox 400 BID Other Diagnoses: # HTN - continue home meds # Metastatic medullary thyroid cancer # Depression documented in this encounter Plan of Treatment Upcoming Encounters Date Type Department Care Team (Late st Contact Info) Description 11/17/2024 10:30 AM EDT Clinical Support [facility] [address] [facility], [address]nd [place] [address] 11/17/2024 11:00 AM EDT Office Visit [facility] [address] [facility], [address] [place] [phone] Dominguez Duffy MD [address] [facility] [address] [place] [phone] 11/17/2024 1:00 PM EDT Office Visit [facility] [address] [facility], [address] [place] [phone] Kassi Ronquillo, KARINA [address] [place] [phone] 12/15/2024 11:00 AM EDT Appointment Medical Office Building Cardiac Diagnostic Testing Medical Office Building Echo Lab [address], [address] [place] [address] 12/15/2024 12:30 PM EDT Office Visit [facility] [place] [facility] [address], [address] [place] [phone] Ankita Vásquez PA [address] [place] [address] 01/28/2025 11:20 AM EDT Office Visit [facility]ph[facility] Bone [facility] Mineral Metabolism [address], [address] [place] [phone] Amanda Adams MD [address] [place] [address] 03/08/2025 1:30 PM EST Appointment [facility] [address] [place] [address] 03/08/2025 3:50 PM EST Office Visit [facility] [address] [place] [phone] Vini Lord MD [address] [facility] [address] [place] [address] 11/02/2025 9:30 AM EDT Appointment Medical Office Building Cardiac Diagnostic Testing Medical Office Building Echo Lab [address], [address] [place] [address] 11/02/2025 11:00 AM EDT Office Visit [facility] [place] [facility] [address], [address] [place] [address] Ankita Vásquez PA [address] [place] [phone] documented as of this encounter Procedures Procedure Name Priority Date/Time Associated Diagnosis Comments ECHO, ADULT TRANSTHORACIC LIMITED Routine 10/22/2024 9:50 AM EDT ECG ADULT Routine 10/22/2024 6:19 AM EDT XR CHEST 1 VIEW Routine 10/22/2024 12:27 AM EDT CBC W/O DIFFERENTIAL Routine 10/22/2024 12:07 AM EDT MAGNESIUM, PLASMA Routine 10/22/2024 12: 07 AM EDT BASIC METABOLIC PANEL, PLASMA Routine 10/22/2024 12:07 AM EDT DAISY AURIS SURVEILLANCE BY PCR Routine 10/21/2024 5:27 PM EDT MULTI DRUG RESISTANCE TEST Routine 10/21/2024 5:27 PM EDT CBC W/O DIFFERENTIAL Routine 10/21/2024 5:24 PM EDT BASIC METABOLIC PANEL, PLASMA Routine 10/21/2024 5:24 PM EDT ECG ADULT STAT 10/21/2024 2:28 PM EDT ECHO, ADULT TRANSTHORACIC LIMITED W/ COLOR AND DOPPLER Routine 10/21/2024 2:15 PM EDT TAVR Routine 10/21/2024 2:09 PM EDT Nonrheumatic aortic valve stenosis POCT ACT UNSOLICITED RESULTS Routine 10/21/2024 1:32 PM EDT IMPLANTATION, AORTIC VALVE, TRANSCATHETER 10/21/2024 12:28 PM EDT Nonrheumatic aortic valve stenosis ECG ADULT Routine 10/21/2024 10:51 AM EDT POCT CREATININE ISTAT UNSOLICITED RESULTS Routine 10/21/2024 10:46 AM EDT N-TERMINAL PROBNP, PLASMA STAT 10/21/2024 10:41 AM EDT CBC W/O DIFFERENTIAL STAT 10/21/2024 10:41 AM EDT TYPE AND SCREEN Routine 10/21/2024 10:41 AM EDT BASIC METABOLIC PANEL, PLASMA STAT 10/21/2024 10:41 AM EDT documented in this encounter Results * ECHO, ADULT TRANSTHORACIC LIMITED (10/22/2024 9:50 AM EDT) [facility] BSA 1.67 m2 PASHA ISCV Height 154.9 PASHA ISCV Weight 67.6 PASHA ISCV Ao V2 VTI 27.3 cm PASHA ISCV Ao mean PG 4 mmHg PASHA ISCV Ao V2 Vmax 139.9 cm/s PASHA ISCV Ao max PG 8 mmHg PASHA ISCV Ao V2 mean 99.6 cm/s PASHA ISCV LV V1 VTI 30.2 cm PASHA ISCV LV V1 Vmax 142.5 cm/s PASHA ISCV AV VTI Index 1.11 PASHA ISCV LV mean PG 4.3 mmHG PASHA ISCV LV V1 mean 97.3 cm/sec PASHA ISCV LV max PG 8.1 mmHg PASHA ISCV LVOT diam 21 mm PASHA ISCV LVOT AREA 3.5 cm2 PASHA ISCV SV(LVOT) 105 mL PASHA ISCV JOSE(I,D) 3.8 cm2 PASHA ISCV JOSE(VTI)/BSA_ph l 2.3 cm2/m2 PASHA ISCV Anatomical Region Laterality Modality Echocardiography Narrative 10/22/2024 10:02 AM EDT Aortic Valve: There is a appropriately positioned transcatheter bioprosthetic valve (23 mm Wang Abida). There is trace paravalvular leak. The peak gradient is 8 mmHg. The mean gradient is 4 mmHg. The gradient is normal for this prosthetic valve. Compared to the most recently available prior study, and allowing for differences in image quality and technique, there is no significant interval change noted. Left Ventricle The left ventricle is normal size. The left ventricular systolic function is normal. The LVEF is visually estimated at 60 - 70%. The left ventricular wall motion is normal. IVC/SVC Based on the IVC size and respiratory variation, the estimated right atrial pressure is 3mmHg. Mitral Valve There is mild mitral annular calcification. There is mild mitral regurgitation. There is no mitral stenosis. Aortic Valve There is a appropriately positioned transcatheter bioprosthetic valve (23 mm Wang Abida). There is trace paravalvular leak. The peak gradient is 8 mmHg. The mean gradient is 4 mmHg. The gradient is normal for this prosthetic valve. Pericardium No pericardial effusion. Study Details A complete transthoracic echocardiogram using two-dimensional (2D), m-mode, color and spectral flow Doppler imaging was performed. During the study the apical, parasternal, subcostal and suprasternal view was captured. The study was technically difficult due to patient's clinical status. Height: 154.9 cm. Weight: 67.6 kg. BSA: 1.67 m2. Study Recommendation Compared to the most recently available prior study, and allowing for differences in image quality and technique, there is no significant interval change noted. Khanh Galindo APRN CV ECHO PROCEDURES Final Re sult * ECG Adult - POD#1 (10/22/2024 6:19 AM EDT) EKG DIAGNOSIS CLASS Abnormal MUSE ECG Ventricular Rate 75 BPM MUSE ECG Atrial Rate 75 BPM MUSE ECG SC Interval 152 ms MUSE ECG QRSD Interval 124 ms MUSE ECG QT Interval 438 ms MUSE ECG QTC Interval 489 ms MUSE ECG P Tiro 12 degrees MUSE ECG R Tiro -45 degrees MUSE ECG T Wave Tiro -12 degrees MUSE ECG Diagnosis Normal sinus rhythm MUSE ECG Diagnosis Right bundle branch block MUSE ECG Diagnosis Left anterior fascicular block MUSE ECG Diagnosis Bifascicular block MUSE ECG Diagnosis Minimal voltage criteria for LVH, may be normal variant ( R in aVL ) MUSE ECG Diagnosis Abnormal ECG MUSE ECG Diagnosis MUSE ECG Diagnosis Confirmed by Cynthia Givens ([id number]) on 10/22/2024 2:24:29 PM MUSE ECG 10/22/2024 6:19 AM EDT 10/22/2024 2:24 PM EDT Khanh Galindo APRN ECG ORDERABLES Final Resul t MUSE ECG * XR Chest 1 View (10/22/2024 12:27 AM EDT) Anatomical Region Laterality Modality Chest Digital Radiogra phy Impressions 10/22/2024 8:51 AM EDT Interval TAVR procedure. Increased atelectasis, greatest on the right.. CRITICAL RESULT: No. COMMUNICATION: Per this written report. By electronically signing this report, I, the attending physician, attest that I have personally reviewed the images/data for the above examination(s) and agree with the final edited report. Drafted by Mayur Diggs MD on 10/22/2024 8:33 AM Final report signed by Lane Dawn MD on 10/22/2024 8:51 AM Narrative 10/22/2024 8:51 AM EDT CLINICAL INDICATION: S/P TAVR TECHNIQUE: XR CHEST 1 VIEW COMPARISON: CTA chest 09/08/2024 FINDINGS: Interval TAVR procedure. Right lower lung subsegmental atelectasis. No focal consolidation. No pneumothorax. No significant pleural effusion. Cardiomegaly, better seen on comparison CT. Procedure Note Lane Dawn MD - 10/22/2024 CLINICAL INDICATION: S/P TAVR TECHNIQUE: XR CHEST 1 VIEW COMPARISON: CTA chest 09/08/2024 FINDINGS: Interval TAVR procedure. Right lower lung subsegmental atelectasis. Nofocal consolidation. No pneumothorax. No significant pleural effusion.Cardiomegaly, better seen on comparison CT. IMPRESSION: Interval TAVR procedure. Increased atelectasis, greatest on the right.. CRITICAL RESULT: No. COMMUNICATION: Per this written report. By electronically signing this report, I, the attending physician, attestthat I have personally reviewed the images/data for the aboveexamination(s) and agree with the final edited report. Drafted by Mayur Diggs MD on 10/22/2024 8:33 AM Final report signed by Lane Dawn MD on 10/22/2024 8:51 AM us Khahn Galindo APRN IMG XR PROCEDURES Final Res ult * (ABNORMAL) Magnesium (10/22/2024 12:07 AM EDT) Magnesium, Plasma 1.8(L) 1.9 - 2.4 mg/dL 10/22/2024 12:47 AM EDT [facility] Blood Venous blood specimen / Unknown Venipuncture / Unknown 10/22/2024 12:07 AM EDT 10/22/2024 12:19 AM EDT Khanh Galindo APRN LAB BLOOD ORDERABLES Final Result [facility] [address] [place] [address] * (ABNORMAL) Basic metabolic panel (10/22/2024 12:07 AM EDT) Glucose, Plasma 123(H) 74 - 99 mg/dL 10/22/2024 12:47 AM EDT [facility] BUN, Plasma 16 8 - 23 mg/dL 10/22/2024 12:47 AM EDT [facility] Creatinine, Plasma 0.78 0.60 - 1.10 mg/dL 10/22/2024 12:47 AM EDT [facility] BUN/Creatinine Ratio 21 10/22/2024 12:47 AM EDT [facility] Sodium, Plasma 135(L) 136 - 145 mmol/L 10/22/2024 12:47 AM EDT [facility] Potassium, Plasma 3.5(L) 3.6 - 4.9 mmol/L 10/22/2024 12:47 AM EDT [facility] Chloride, Plasma 96(L) 97 - 107 mmol/L 10/22/2024 12:47 AM EDT [facility] CO2, Plasma 26 22 - 29 mmol/L 10/22/2024 12:47 AM EDT [facility] Anion Gap 13 6 - 16 mmol/L 10/22/2024 12:47 AM EDT [facility] Total Calcium, Plasma 8.2(L) 8.9 - 10.2 mg/dL 10/22/2024 12:47 AM EDT [facility] eGFRcr 75.9 mL/min/1.7 3m*2 10/22/2024 12:47 AM EDT [facility] Comment:Reported eGFRcr in m L/min/1.73m2 is based the CKD-EPI 2020 equation that does not use a race coefficient. Blood Venous blood specimen / Unknown Venipuncture / Unknown 10/22/2024 12:07 AM EDT 10/22/2024 12:19 AM EDT us Khanh Galindo APRN LAB BLOOD ORDERABLES Final Result [facility] [address] [place] [address] * (ABNORMAL) CBC (10/22/2024 12:07 AM EDT) WBC Count 13.53(H) 3.70 - 10.30 10*3/uL LAB HEMATOLOGY METHOD 10/22/2024 12:34 AM EDT [facility] RBC Count 4.54 3.90 - 5.20 10*6/uL LAB HEMATOLOGY METHOD 10/22/2024 12:34 AM EDT [facility] HGB 12.1 11.2 - 15.7 g/dL LAB HEMATOLOGY METHOD 10/22/2024 12:34 AM EDT [facility] HCT 36.9 34.0 - 45.0 % LAB HEMATOLOGY METHOD 10/22/2024 12:34 AM EDT [facility] Platelet Count 292 155 - 369 10*3/uL LAB HEMATOLOGY METHOD 10/22/2024 12:34 AM EDT [facility] MCV 81 79 - 98 fL LAB HEMATOLOGY METHOD 10/22/2024 12:34 AM EDT [facility] MCH 26.7 26.0 - 32.0 pg LAB HEMATOLOGY METHOD 10/22/2024 12:34 AM EDT [facility] MCHC 32.8 30.7 - 35.5 g/dL LAB HEMATOLOGY METHOD 10/22/2024 12:34 AM EDT [facility] RDW 15.8(H) 11.5 - 14.5 % LAB HEMATOLOGY METHOD 10/22/2024 12:34 AM EDT [facility] MPV 9.0 8.8 - 12.5 fL LAB HEMATOLOGY METHOD 10/22/2024 12:34 AM EDT [facility] nRBC 0.0 <=0.0 per 100 WBCs LAB HEMATOLOGY METHOD 10/22/2024 12:34 AM EDT [facility] Blood Venous blood specimen / Unknown Venipuncture / Unknown 10/22/2024 12:07 AM EDT 10/22/2024 12:20 AM EDT us Khanh Galindo APRN LAB BLOOD ORDERABLES Final Result [facility] [address] [place] [address] * Daisy auris Surveillance by PCR (10/21/2024 5:27 PM EDT) Daisy auris PCR Result Not Detected Not Detected 10/22/2024 1:[address] [facility] Swab (Axilla and Groin) Non-blood Collection / Unknown 10/21/2024 5:27 PM EDT 10/21/2024 5:38 PM EDT Narrative [facility] - 10/22/2024 1:29 PM EDT This PCR assay was developed and its performance characteristics determined by [facility] as appropriate for clinical purposes. This assay has not been cleared or approved by the FDA, but is performed in a CLIA regulated laboratory that is qualified to perform high-complexity testing. Kane Hidalgo MD LAB MICROBIOLOGY [facility] Final Result Performing Organization Address [facility] [place] [address] * Multi Drug Resistance Test (10/21/2024 5:27 PM EDT) Pathologist [facility] Culture No growth at day 1 10/22/2024 8:[address] [facility] Swab (Nares and Vilma Rectal) Non-blood Collection / Unknown 10/21/2024 5:27 PM EDT 10/21/2024 5:[address] [facility] - 10/22/2024 8:22 PM EDT This test was developed and its performance characteristics determined by the [facility]. Although the media is FDA-approved, it is not FDA-approved for all specimen types submitted. The FDA has determined that such clearance or approval is not necessary. This test is used for surveillance purposes. It should not be regarded as investigational or for research. The [facility] is certified under the Clinical Laboratory Improvement Amendments of 1988 (CLIA-88) as qualified to perform high complexity clinical laboratory testing. Kane Hidalgo MD LAB [facility]BIOLOGY - [facility] Final Result Performing Organization Address [facility] [place] [address] * (ABNORMAL) Basic metabolic panel (10/21/2024 5:24 PM EDT) Glucose, Plasma 108(H) 74 - 99 mg/dL 10/21/2024 6:12 PM EDT [facility] BUN, Plasma 16 8 - 23 mg/dL 10/21/2024 6:12 PM EDT [facility] Creatinine, Plasma 0.84 0.60 - 1.10 mg/dL 10/21/2024 6:12 PM EDT [facility] BUN/Creatinine Ratio 19 10/21/2024 6:12 PM EDT [facility] Sodium, Plasma 138 136 - 145 mmol/L 10/21/2024 6:12 PM EDT [facility] Potassium, Plasma 4.2 3.6 - 4.9 mmol/L 10/21/2024 6:12 PM EDT [facility] Chloride, Plasma 99 97 - 107 mmol/L 10/21/2024 6:12 PM EDT [facility] CO2, Plasma 26 22 - 29 mmol/L 10/21/2024 6:12 PM EDT [facility] Anion Gap 13 6 - 16 mmol/L 10/21/2024 6:12 PM EDT [facility] Total Calcium, Plasma 8.4(L) 8.9 - 10.2 mg/dL 10/21/2024 6:12 PM EDT [facility] eGFRcr 69.5 mL/min/1.7 3m*2 10/21/2024 6:12 PM EDT [facility] Comment:Reported eGFRcr in m L/min/1.73m2 is based the CKD-EPI 2020 equation that does not use a race coefficient. Blood Venous blood specimen / Unknown Venipuncture / Unknown 10/21/2024 5:24 PM EDT 10/21/2024 5:40 PM EDT us Khanh Galindo APRN LAB BLOOD ORDERABLES Final Result [facility] [address] [place] [address] * (ABNORMAL) CBC (10/21/2024 5:24 PM EDT) WBC Count 8.58 3.70 - 10.30 10*3/uL LAB HEMATOLOGY METHOD 10/21/2024 5:51 PM EDT [facility] RBC Count 4.81 3.90 - 5.20 10*6/uL LAB HEMATOLOGY METHOD 10/21/2024 5:51 PM EDT [facility] HGB 12.7 11.2 - 15.7 g/dL LAB HEMATOLOGY METHOD 10/21/2024 5:51 PM EDT [facility] HCT 39.6 34.0 - 45.0 % LAB HEMATOLOGY METHOD 10/21/2024 5:51 PM EDT [facility] Platelet Count 322 155 - 369 10*3/uL LAB HEMATOLOGY METHOD 10/21/2024 5:51 PM EDT [facility] MCV 82 79 - 98 fL LAB HEMATOLOGY METHOD 10/21/2024 5:51 PM EDT [facility] MCH 26.4 26.0 - 32.0 pg LAB HEMATOLOGY METHOD 10/21/2024 5:51 PM EDT [facility] MCHC 32.1 30.7 - 35.5 g/dL LAB HEMATOLOGY METHOD 10/21/2024 5:51 PM EDT [facility] RDW 15.7(H) 11.5 - 14.5 % LAB HEMATOLOGY METHOD 10/21/2024 5:51 PM EDT [facility] MPV 9.3 8.8 - 12.5 fL LAB HEMATOLOGY METHOD 10/21/2024 5:51 PM EDT [facility] nRBC 0.0 <=0.0 per 100 WBCs LAB HEMATOLOGY METHOD 10/21/2024 5:51 PM EDT [facility] Blood Venous blood specimen / Unknown Venipuncture / Unknown 10/21/2024 5:24 PM EDT 10/21/2024 5:44 PM EDT us Khanh Galindo APRN LAB BLOOD ORDERABLES Final Result [facility] [address] [place] [address] * ECG Adult (10/21/2024 2:28 PM EDT) EKG DIAGNOSIS CLASS Abnormal MUSE ECG Ventricular Rate 49 BPM MUSE ECG Atrial Rate 49 BPM MUSE ECG SC Interval 176 ms MUSE ECG QRSD Interval 138 ms MUSE ECG QT Interval 552 ms MUSE ECG QTC Interval 498 ms MUSE ECG P Tiro 20 degrees MUSE ECG R Tiro -42 degrees MUSE ECG T Wave Tiro 9 degrees MUSE ECG Diagnosis Sinus bradycardia MUSE ECG Diagnosis Left axis deviation MUSE ECG Diagnosis Right bundle branch block MUSE ECG Diagnosis Minimal voltage criteria for LVH, may be normal variant ( R in aVL ) MUSE ECG Diagnosis Abnormal ECG MUSE ECG Diagnosis MUSE ECG Diagnosis Confirmed by Nick Tapia ([id number]) on 10/21/2024 8:25:02 PM MUSE ECG 10/21/2024 2:28 PM EDT 10/21/2024 8:25 PM EDT us Kane Hidalgo MD ECG ORDERABLES Final Result MUSE ECG * ECHO, ADULT TRANSTHORACIC LIMITED W/ COLOR AND DOPPLER (10/21/2024 2:15 PM EDT) BSA 1.67 m2 PASHA ISCV Height 157.5 PASHA ISCV Weight 65.8 PASHA ISCV LV V1 Vmax 138.0 cm/s PASHA ISCV Ao V2 VTI 34.7 cm PASHA ISCV Ao mean PG 5 mmHg PASHA ISCV Ao V2 Vmax 166.0 cm/s PASHA ISCV Ao max PG 11 mmHg PASHA ISCV LV mean PG 4.0 mmHG PASHA ISCV LV V1 mean 91.2 cm/sec PASHA ISCV LV max PG 7.6 mmHg PASHA ISCV AV-pr VR 0.8 PASHA ISCV Ao V2 mean 103.0 cm/s PASHA ISCV Anatomical Region Laterality Modality Echocardiography Narrative 10/21/2024 2:24 PM EDT Intra-procedural imaging. The following report reflects post-HODA measurements: Aortic Valve: There is a appropriately positioned transcatheter bioprosthetic valve (23 mm Sapen 3) that is well-seated. There is no valvular regurgitation. There is no paravalvular leak. The peak gradient is 11 mmHg. The mean gradient is 5 mmHg. The gradient is normal for this prosthetic valve. Pericardium: No pericardial effusion. Left Ventricle The left ventricle is normal size. The left ventricular systolic function is normal. The LVEF is visually estimated at 60 - 65%. Mitral Valve The mitral valve is grossly normal. There is mild mitral regurgitation. Aortic Valve There is a appropriately positioned transcatheter bioprosthetic valve (23 mm Sapen 3) that is well-seated. There is no valvular regurgitation. There is no paravalvular leak. The peak gradient is 11 mmHg. The mean gradient is 5 mmHg. The gradient is normal for this prosthetic valve. Pericardium No pericardial effusion. Study Details A limited transthoracic echocardiogram using limited 2D, color flow Doppler and limited spectral Doppler imaging was performed. During the study the apical and parasternal view was captured. Overall the study quality was adequate. Height: 157.5 cm. Weight: 65.8 kg. BSA: 1.67 m2. Study Recommendation Compared to the most recently available prior study, and allowing for differences in image quality and technique, now s/p HODA. Kane Hidalgo MD CV ECHO PROCEDURES Final Result * TAVR (10/21/2024 2:09 PM EDT) Anatomical Region Laterality Modality Other Narrative 10/23/2024 9:33 AM EDT CONCLUSIONS: 1. Successful transcatheter aortic valve replacement. RECOMMENDATIONS: 1. Single antiplatelet therapy with aspirin or clopidogrel. 2. Overnight observation. 3. Pre-discharge echocardiogram. 4. Follow up in the outpatient cardiology clinic in one month. Procedure Details PROCEDURES PERFORMED: 1. Transcatheter aortic valve replacement (TAVR). INDICATIONS: 1. Severe, symptomatic aortic stenosis. PROSTHESIS: Wang [employer] Abida 3 Ultra Size 23 mm. PROCEDURE DESCRIPTION: This procedure was performed jointly by Interventional Cardiology and Cardiothoracic Surgery physicians. The primary Interventional Cardiology operator vacuum was Dr. Kane Hidalgo and the primary Cardiothoracic Surgery operator vacuum was Dr. Neelima Gray. The procedure, risks, benefits and alternatives were explained and informed consent was obtained. The patient was taken to the catheterization laboratory in the fasting state. Monitored anesthesia care was provided by the anesthesiology service. A time-out protocol was observed. Sterile conditions were maintained. A prophylactic antibiotic was administered. The right and left femoral areas were prepped, draped and anesthetized with 1% lidocaine. Arterial and venous access was obtained under ultrasound guidance (6F right common femoral artery, 7F left common femoral artery, 8F right common femoral vein). A Perclose suture was placed at the right femoral artery puncture site. The patient was anticoagulated with unfractionated and ACT was maintained at 250-300 seconds. The 6F sheath was exchanged for eSheath expandable valve delivery sheath. A 6F pigtail catheter was advanced via the left femoral artery to the aortic root. A temporary pacing catheter was advanced from the right femoral vein to the right ventricle. The aortic valve was crossed retrograde with a 6F AL1 catheter and a J-tipped .035-inch guidewire. The AL1 catheter was exchanged for an angled pigtail catheter, then the pigtail catheter was exchanged in the body of the left ventricle for a Safari guidewire. The transcatheter valve was prepared, inserted and positioned under fluoroscopic guidance. Position was confirmed by aortic root angiography. The prosthesis was deployed at nominal inflation volume during rapid ventricular pacing and 200 beats per minute. Transthoracic echocardiography was performed, indicating correct prosthesis position, no central or perivalvular leak, and no evidence of complications. Aortography was performed, confirming correct prosthesis position, trace aortic regurgitation, and no complications. The catheters and sheaths were removed. The femoral puncture sites were closed with Perclose sutures. Sedation was discontinued and the patient was observed until awake. The patient was transferred to recovery in stable condition with no complications. CONCLUSIONS: 1. Successful transcatheter aortic valve replacement. RECOMMENDATIONS: 1. Single antiplatelet therapy with aspirin or clopidogrel. 2. Overnight observation. 3. Pre-discharge echocardiogram. 4. Follow up in the outpatient cardiology clinic in one month. Hemodynamic Data Pressures Phase: Resting Aortic AO: 148/58 (90) mmHg us Kane Hidalgo MD CV CARDIAC CATH PROCEDURES Vickie gomez Result * POCT ACT (10/21/2024 1:32 PM EDT) [facility] ACT (Low Range) 323 65 - 400 seconds 11/01/2024 9:14 AM EDT [facility] Concrete Tester ID Vittitow, Nabila 11/01/2024 9:14 AM EDT [facility] ACT Device ID [id number] 11/01/2024 9:14 AM EDT [facility] Comment 11/01/2024 9:14 AM EDT [facility] Comment: ACT performed by staff at point of care. Results are reported immediately to the physician or primary caregiver. The activated clotting time is performed on patients with diverse clinical characteristics and treatment histories. Therefore, expected values are variable and results must be interpreted in the context of each individual patient. Whole Blood Venous blood specimen / Unknown 10/21/2024 1:32 PM EDT 11/01/2024 9:14 AM EDT us Kane Hidalgo MD LAB POINT OF CARE TE ST DOCKED DEVICE UNSOLICITED RESULTS Final Result Performing Organization Address City/[facility]/ZIP Co de Phone Number [facility] [address] LAB [address] [place] [address] * ECG Adult (10/21/2024 10:51 AM EDT) EKG DIAGNOSIS CLASS Abnormal MUSE ECG Ventricular Rate 62 BPM MUSE ECG Atrial Rate 62 BPM MUSE ECG SC Interval 160 ms MUSE ECG QRSD Interval 128 ms MUSE ECG QT Interval 486 ms MUSE ECG QTC Interval 493 ms MUSE ECG P Tiro -2 degrees MUSE ECG R Tiro -35 degrees MUSE ECG T Wave Tiro 4 degrees MUSE ECG Diagnosis Sinus rhythm with premature atrial complexes MUSE ECG Diagnosis 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 73m*2 10/21/2024 10:49 AM EDT [facility]ALTH[facility] LAB Concrete Tester ID Jerardo Lowe 10/21/2024 10:49 AM EDT HEALTHCARE LAB Device ID [id number] 10/21/2024 10:49 AM EDT [facility]ALTH[facility] LAB Comment 10/21/2024 10:49 AM EDT [facility] Comment:Testing performed on i-STAT at the point of care. Reported eGFRcr in mL/min/1.73m2 is based the CKD-EPI 2020 equation that does not use a race coefficient. Blood Venous blood specimen / Unknown 10/21/2024 10:46 AM EDT 10/21/2024 10:49 AM EDT us Kane Hidalgo MD LAB POINT OF CARE TE ST DOCKED DEVICE UNSOLICITED RESULTS Final Result [facility] [address] LAB 800 [place] [address] * Type and Screen (10/21/2024 10:41 AM EDT) [facility] ABO/Rh A Positive 10/21/2024 10:41 AM EDT BLOOD BANK Antibody Screen Negative 10/21/2024 10:41 AM EDT BLOOD BANK Specimen Expiration 10/24/2024 23:59 10/21/2024 10:41 AM EDT BLOOD BANK Blood Venous blood specimen / Unknown Venipuncture / Unknown 10/21/2024 10:41 AM EDT 10/21/2024 10:52 AM EDT Ankita RODRIGUEZ LAB BLOOD BANK TEST ORD ERABLES Final Result Performing Organization Address City/[facility]/ZIP Co de Phone Number BLOOD BANK [address] [place] [address], * N-Terminal Probnp (10/21/2024 10:41 AM EDT) N-Terminal, PROBNP, Plasma 496 0 - 1,799 pg/mL 10/21/2024 11:25 AM EDT [facility] Blood Venous blood specimen / Unknown Venipuncture / Unknown 10/21/2024 10:41 AM EDT 10/21/2024 10:55 AM EDT us Ankita RODRIGUEZ LAB BLOOD ORDERABLES Fi nal Result [facility] [address] [place] [address] * (ABNORMAL) Basic metabolic panel (10/21/2024 10:41 AM EDT) Pathologist [facility] Glucose, Plasma 116(H) 74 - 99 mg/dL 10/21/2024 11:25 AM EDT [facility] BUN, Plasma 18 8 - 23 mg/dL 10/21/2024 11:25 AM EDT [facility] Creatinine, Plasma 0.91 0.60 - 1.10 mg/dL 10/21/2024 11:25 AM EDT [facility] BUN/Creatinine Ratio 20 10/21/2024 11:25 AM EDT [facility] Sodium, Plasma 139 136 - 145 mmol/L 10/21/2024 11:25 AM EDT [facility] Potassium, Plasma 3.9 3.6 - 4.9 mmol/L 10/21/2024 11:25 AM EDT [facility] Chloride, Plasma 97 97 - 107 mmol/L 10/21/2024 11:25 AM EDT [facility] CO2, Plasma 26 22 - 29 mmol/L 10/21/2024 11:25 AM EDT [facility] Anion Gap 16 6 - 16 mmol/L 10/21/2024 11:25 AM EDT [facility] Total Calcium, Plasma 9.2 8.9 - 10.2 mg/dL 10/21/2024 11:25 AM EDT [facility] eGFRcr 63.1 mL/min/1.7 3m*2 10/21/2024 11:25 AM EDT [facility] Comment:Reported eGFRcr in m L/min/1.73m2 is based the CKD-EPI 2020 equation that does not use a race coefficient. Blood Venous blood specimen / Unknown Venipuncture / Unknown 10/21/2024 10:41 AM EDT 10/21/2024 10:55 AM EDT Ankita RODRIGUEZ LAB BLOOD ORDERABLES Fi nal Result [facility] [address] [place] [address] * (ABNORMAL) Hemogram (CBC) (10/21/2024 10:41 AM EDT) WBC Count 7.03 3.70 - 10.30 10*3/uL LAB HEMATOLOGY METHOD 10/21/2024 11:09 AM EDT [facility] RBC Count 5.07 3.90 - 5.20 10*6/uL LAB HEMATOLOGY METHOD 10/21/2024 11:09 AM EDT [facility] HGB 13.5 11.2 - 15.7 g/dL LAB HEMATOLOGY METHOD 10/21/2024 11:09 AM EDT [facility] HCT 41.4 34.0 - 45.0 % LAB HEMATOLOGY METHOD 10/21/2024 11:09 AM EDT [facility] Platelet Count 392(H) 155 - 369 10*3/uL LAB HEMATOLOGY METHOD 10/21/2024 11:09 AM EDT [facility] MCV 82 79 - 98 fL LAB HEMATOLOGY METHOD 10/21/2024 11:09 AM EDT [facility] MCH 26.6 26.0 - 32.0 pg LAB HEMATOLOGY METHOD 10/21/2024 11:09 AM EDT [facility] MCHC 32.6 30.7 - 35.5 g/dL LAB HEMATOLOGY METHOD 10/21/2024 11:09 AM EDT [facility] RDW 15.8(H) 11.5 - 14.5 % LAB HEMATOLOGY METHOD 10/21/2024 11:09 AM EDT [facility] MPV 8.9 8.8 - 12.5 fL LAB HEMATOLOGY METHOD 10/21/2024 11:09 AM EDT [facility] nRBC 0.0 <=0.0 per 100 WBCs LAB HEMATOLOGY METHOD 10/21/2024 11:09 AM EDT [facility] Blood Venous blood specimen / Unknown Venipuncture / Unknown 10/21/2024 10:41 AM EDT 10/21/2024 10:59 AM EDT Ankita RODRIGUEZ LAB BLOOD ORDERABLES Fi nal Result [facility] [address] [place] [address] documented in this encounter Visit Diagnoses Diagnosis Nonrheumatic aortic valve stenosis- Primary Status post transcatheter aortic valve replacement Hypokalemia Hypopotassemia Poor compliance with medication Hypomagnesemia Disorders of magnesium metabolism Essential hypertension Unspecified essential hypertension Nonrheumatic aortic valve stenosis documented in this encounter Admitting Diagnoses Diagnosis Nonrheumatic aortic valve stenosis documented in this encounter Administered Medications Inactive Administered Medications - up to 3 most recent administrations Medication Order MAR Action Action Date Dose Rate Site acetaminophen (Tylenol) tablet 650 mg 650 mg, Oral, Every 6 hours PRN, Starting on Fri10/21/24 at 1519, Until Fri10/22/24 at 1419, Routine, Recovery(Phase II-Outpatient)/On Unit(Inpatient), fever, mild pain, >38.5 C aspirin chewable tablet 81 mg 81 mg, Oral, Daily, First dose on Fri10/22/24 at 0900, Until Discontinued, Routine, Recovery(Phase II-Outpatient)/On Unit(Inpatient) Given 10/22/2024 8:25 AM EDT 81 mg calcitriol (Rocaltrol) capsule 0.5 mcg 0.5 mcg, Oral, Daily, First dose on Fri10/22/24 at 0900, Until Discontinued, Routine Given 10/22/2024 8:25 AM EDT 0.5 mcg calcium carbonate (Tums) chewable tablet 3,000 mg 3,000 mg, Oral, 2 times daily, First dose on Bev 10/21/24 at 2100, Until Discontinued Given 10/22/2024 8:25 AM EDT 3,000 mg Given 10/21/2024 9:24 PM EDT 3,000 mg escitalopram (Lexapro) tablet 10 mg 10 mg, Oral, Every morning, First dose on Fri10/22/24 at 0600, Until Discontinued, Routine Given 10/22/2024 5:28 AM EDT 10 mg hydrALAZINE (Apresoline) injection 10 mg 10 mg, Intravenous, Every 6 hours PRN, Starting on Fri10/21/24 at 1626, Until Fri10/22/24 at 1419, Routine, high blood pressure, For Systolic BP above 150 mmHg. Given 10/22/2024 6:04 AM EDT 10 mg Given 10/22/2024 1:09 AM EDT 10 mg Given 10/21/2024 5:05 PM EDT 10 mg ketorolac (Toradol) injection 15 mg 15 mg, Intravenous, Once, 1 dose, On Fri10/22/24 at 0245, STAT Given 10/22/2024 1:55 AM EDT 15 mg levothyroxine (Synthroid, Levoxyl) tablet 175 mcg 175 mcg, Oral, Daily, First dose on Fri10/22/24 at 0900, Until Discontinued, Routine Given 10/22/2024 8:26 AM EDT 175 mcg magnesium oxide (Mag-Ox) tablet 400 mg 400 mg, Oral, 2 times daily, First dose on Fri10/21/24 at 2100, Until Discontinued, Routine Given 10/22/2024 8:25 AM EDT 400 mg Given 10/21/2024 9:24 PM EDT 400 mg magnesium sulfate IVPB 2 g 2 g, Intravenous, Once, 1 dose, On Fri10/22/24 at 0200, Routine New Bag 10/22/2024 1:55 AM EDT 2 g 25 mL/hr multivitamin (Theragran-M) tablet 1 tablet 1 tablet, Oral, Daily, First dose on Fri10/22/24 at 0900, Until Discontinued Given 10/22/2024 8:26 AM EDT 1 tablet mupirocin (Bactroban) 2 % ointment 1 Application Each Nostril, 2 times daily, 10 doses, First dose on Fri10/21/24 at 2100, Last dose on Fri10/26/24 at 0900, Routine Given 10/22/2024 8:26 AM EDT 1 Application Given 10/21/2024 9:24 PM EDT 1 Application NIFEdipine XL (Procardia XL) 24 hr tablet 30 mg 30 mg, Oral, Daily, 1 dose, First dose on Fri10/22/24 at 0230, Routine Given 10/22/2024 1:45 AM EDT 30 mg NIFEdipine XL (Procardia XL) 24 hr tablet 30 mg 30 mg, Oral, Once, 1 dose, On Fri10/22/24 at 0400, Routine Given 10/22/2024 5:28 AM EDT 30 mg ondansetron (Zofran) injection 4 mg 4 mg, Intravenous, Every 8 hours PRN, Starting on Fri10/21/24 at 1830, Until Fri10/22/24 at 0727, STAT, nausea, vomiting Given 10/22/2024 1:08 AM EDT 4 mg Given 10/21/2024 6:38 PM EDT 4 mg ondansetron (Zofran) injection 4 mg 4 mg, Intravenous, Every 6 hours PRN, Starting on Fri10/22/24 at 0727, Until Fri10/22/24 at 1419, STAT, nausea, vomiting Given 10/22/2024 7:47 AM EDT 4 mg pantoprazole (Protonix) EC tablet 40 mg 40 mg, Oral, Daily, First dose on Fri10/22/24 at 0900, Until Discontinued, Routine Given 10/22/2024 8:26 AM EDT 40 mg potassium chloride IVPB 10 mEq 10 mEq, Intravenous, Every 1 hour, 2 doses, First dose on Fri10/22/24 at 0200, Last dose on Fri10/22/24 at 0300, RoutineIndications:Hypokalemia New Bag 10/22/2024 3:11 AM EDT 10 mEq 100 mL/hr New Bag 10/22/2024 1:56 AM EDT 10 mEq 100 mL/hr sodium chloride 0.9 % flush 10 mL 10 mL, Intravenous, Every 12 hours, First dose on Fri10/21/24 at 1130, Until Discontinued, Routine, On Unit - Preprocedure Given 10/22/2024 10: 33 AM EDT 10 mL Given 10/21/2024 9:25 PM EDT 10 mL sodium chloride 0.9 % flush 10 mL 10 mL, Intravenous, As needed, Starting on Fri10/21/24 at 1040, Until Fri10/22/24 at 1419, Routine, On Unit - Preprocedure, line care valsartan (Diovan) tablet 320 mg 320 mg, Oral, Daily, First dose on Fri10/22/24 at 0900, Until Discontinued Given 10/22/2024 8:25 AM EDT 320 mg Vancomycin HCl in NaCl (Vancocin) IVPB 1,000 mg 1,000 mg (rounded from 952.5 mg = 15 mg/kg 63.5 kg), Intravenous, Once, 1 dose, On Fri10/21/24 at 1130, at 250 mL/hr, STAT Given 10/21/2024 12:13 PM EDT 1 g Given 10/21/2024 11:53 AM EDT 1,000 mg 250 mL/hr documented in this encounter Active and Recently Administered Medications Times are shown in EDT. Scheduled Medication Order 10/20/2024 10/21/2024 10/22/2024 aspirin chewable tablet 81 mg 81 mg, Oral, Daily, First dose on Fri10/22/24 at 0900, Until Discontinued, Routine, Recovery(Phase II-Outpatient)/On Unit(Inpatient) 824 (Given - Provid er: Venkata Duong, KASSI) calcitriol (Rocaltrol) capsule 0.5 mcg 0.5 mcg, Oral, Daily, First dose on Fri10/22/24 at 0900, Until Discontinued, Routine 824 (Given - Provid er: Venkata Duong, KASSI) calcium carbonate (Tums) chewable tablet 3,000 mg 3,000 mg, Oral, 2 times daily, First dose on Fri10/21/24 at 2100, Until Discontinued 2123 (Given - Provider: Chanda Vasquez) 08 (Given - Provider: Venkata Duong, KASSI) escitalopram (Lexapro) tablet 10 mg 10 mg, Oral, Every morning, First dose on Fri10/22/24 at 0600, Until Discontinued, Routine 05 (Given - Provid er: Chanda Vasquez) ketorolac (Toradol) injection 15 mg (COMPLETED) 15 mg, Intravenous, Once, 1 dose, On Fri10/22/24 at 0245, STAT 0155 (Given - Provid er: Chanda Vasquez) levothyroxine (Synthroid, Levoxyl) tablet 175 mcg 175 mcg, Oral, Daily, First dose on Fri10/22/24 at 0900, Until Discontinued, Routine 825 (Given - Provid er: Venkata Duong RN) magnesium oxide (Mag-Ox) tablet 400 mg 400 mg, Oral, 2 times daily, First dose on Fri10/21/24 at 2100, Until Discontinued, Routine 2123 (Given - Provider: Chanda Vasquez) 08 (Given - Provider: Venkata Duong RN) magnesium sulfate IVPB 2 g (COMPLETED) 2 g, Intravenous, Once, 1 dose, On Fri10/22/24 at 0200, Routine 015 (New Bag - Provider: Chanda Vasquez) multivitamin (Theragran-M) tablet 1 tablet 1 tablet, Oral, Daily, First dose on Fri10/22/24 at 0900, Until Discontinued 825 (Given - Provid er: Venkata Duong RN) mupirocin (Bactroban) 2 % ointment 1 Application Each Nostril, 2 times daily, 10 doses, First dose on Fri10/21/24 at 2100, Last dose on Fri10/26/24 at 0900, Routine 2123 (Given - Provider: Chanda Vasquez) 825 (Given - Provider: Venkata Duong RN) NIFEdipine XL (Procardia XL) 24 hr tablet 30 mg (COMPLETED) 30 mg, Oral, Daily, 1 dose, First dose on Fri10/22/24 at 0230, Routine 0145 (Given - Provid er: Chanda Vasquez) NIFEdipine XL (Procardia XL) 24 hr tablet 30 mg (COMPLETED) 30 mg, Oral, Once, 1 dose, On Fri10/22/24 at 0400, Routine 05 (Given - Provid er: Chanda Vasquez) NIFEdipine XL (Procardia XL) 24 hr tablet 60 mg 60 mg, Oral, Every evening, First dose on Fri10/22/24 at 1700, Until Discontinued, Routine pantoprazole (Protonix) EC tablet 40 mg 40 mg, Oral, Daily, First dose on Fri10/22/24 at 0900, Until Discontinued, Routine 825 (Given - Provid er: Venkata Duong RN) potassium chloride IVPB 10 mEq (COMPLETED) 10 mEq, Intravenous, Every 1 hour, 2 doses, First dose on Fri10/22/24 at 0200, Last dose on Fri10/22/24 at 0300, Routine 0156 (New Bag - Provider: Chanda Vasquez)0311 (New Bag - Provider: Chanda Vasquez) sodium chloride 0.9 % flush 10 mL(Linked Group 1) 10 mL, Intravenous, Every 12 hours, First dose on Bev 10/21/24 at 1130, Until Discontinued, Routine, On Unit - Preprocedure 1130 (Canceled Entry - Provider: Automatic Discharge Provider - Comment: Automatically canceled at discontinue of medication order)2125 (Given - Provider: Chanda Vasquez) 1033 (Given - Provider: Venkata Duong RN) valsartan (Diovan) tablet 320 mg 320 mg, Oral, Daily, First dose on Fri10/22/24 at 0900, Until Discontinued 0825 (Given - Provid er: Venkata Duong RN) Vancomycin HCl in NaCl (Vancocin) IVPB 1,000 mg (COMPLETED) 1,000 mg (rounded from 952.5 mg = 15 mg/kg 63.5 kg), Intravenous, Once, 1 dose, On Bev 10/21/24 at 1130, at 250 mL/hr, STAT 1153 (Given - Provider: Jerardo Lowe RN)1213 (Given - Provider: Ray Fall DO) PRN Medication Order 10/20/2024 10/21/2024 10/22/2024 acetaminophen (Tylenol) tablet 650 mg 650 mg, Oral, Every 6 hours PRN, Starting on Bev 10/21/24 at 1519, Until Fri10/22/24 at 1419, Routine, Recovery(Phase II-Outpatient)/On Unit(Inpatient), fever, mild pain, >38.5 C hydrALAZINE (Apresoline) injection 10 mg 10 mg, Intravenous, Every 6 hours PRN, Starting on Bev 10/21/24 at 1626, Until Fri10/22/24 at 1419, Routine, high blood pressure, For Systolic BP above 150 mmHg. 1705 (Given - Provider: Porter Bartlett RN) 0109 (Given - Provider: Chanda Vasquez)0604 (Given - Provider: Chanda Vasquez) iodixanol (VISIPaque) 320 MG/ML injection (CANCELED) As needed, Starting on Bev 10/21/24 at 1405, Until Fri10/21/24 at 1417, Routine, Intraprocedure 1405 (Given - Provider: Kane Hidalgo MD - Comment: TAVR) lidocaine (Xylocaine) 2 % injection (CANCELED) As needed, Starting on Bev 10/21/24 at 1323, Until Fri10/21/24 at 1417, Routine, Intraprocedure 1323 (Given - Provider: Kane Hidalgo MD)1326 (Given - Provider: Kane Hidalgo MD)1328 (Given - Provider: Kane Hidalgo MD) ondansetron (Zofran) injection 4 mg (CANCELED) 4 mg, Intravenous, Every 8 hours PRN, Starting on Bev 10/21/24 at 1830, Until Fri10/22/24 at 0727, STAT, nausea, vomiting 1838 (Given - Provider: Porter Bartlett RN) 0108 (Given - Provider: Chanda Vasquez) ondansetron (Zofran) injection 4 mg 4 mg, Intravenous, Every 6 hours PRN, Starting on Fri10/22/24 at 0727, Until Fri10/22/24 at 1419, STAT, nausea, vomiting 0747 (Given - Provid er: Venkata Duong RN) sodium chloride 0.9 % flush 10 mL(Linked Group 1) 10 mL, Intravenous, As needed, Starting on Bev 10/21/24 at 1040, Until Fri10/22/24 at 1419, Routine, On Unit - Preprocedure, line care Linked Groups Order Group 1: Insert peripheral IV (CANCELED) Once, On Bev 10/21/24 at 1041, For 1 occurrence, On Unit - Preprocedure And Saline lock IV (CANCELED) Once, On Bev 10/21/24 at 1041, For 1 occurrence, On Unit - Preprocedure And sodium chloride 0.9 % flush 10 mLJump to med 10 mL, Intravenous, Every 12 hours, First dose on Fri10/21/24 at 1130, Until Discontinued, Routine, On Unit - Preprocedure And sodium chloride 0.9 % flush 10 mLJump to med 10 mL, Intravenous, As needed, Starting on Bev 10/21/24 at 1040, Until Fri10/22/24 at 1419, Routine, On Unit - Preprocedure, line care documented in this encounter Additional Health Concerns Assessment Noted Time PHQ-9 Depression Total Score: 0 08/24/19 10:33 AM EDT A fall risk assessment has been complete d for the patient 09/08/2024 10:05 AM EDT A Body Mass Index follow-up plan has been documented for the patient 10/22/2024 11:26 AM EDT documented as of this encounter Care Teams Farrowing Worker Relationship Specialty Start Date End Date Onur Guerrero MD PCP - General Family Medicine 01/22/22 documented as of this encounter
--- OUTSIDE RECORDS SUMMARY | 2024-10-21 12:00 | XMS_ITS | Encounter Summary ---
Author Organization Healthcare Address [address] 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 [I35.0] Procedures [place] REPLACE AORTIC VALVE PERQ FEMORAL ARTRY APPROACH TAVR IMPLANTATION, AORTIC VALVE, TRANSCATHETER Kane Hidalgo MD [address] [place] [address] Phone: tel: fax: Cardiac Ballast Cleaning Operator [address] [place] [address] Phone: tel: Referral ID Status Reason Start Date Expiration Date Visits Re quested Visits Authorized [id number] 1 1 Encounter Details Date Type Department Care Team (Late st Contact Info) Description 10/21/2024 12:00 PM EDT - 10/21/2024 2:30 PM EDT Surgery Cardiac Ballast Cleaning Operator [address] [place] [address] Kane Hidalgo MD [address] [place] [address] TAVR [[id number] (CPT )] Surgery Details Date/Time Status Location OR Service Patient Class Case Class Case Type Trauma Case? 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 Not on file Not on jessica e documented as of this encounter Last Filed Vital Signs Vital Sign Reading Time Taken Comments Blood Pressure 131/69 10/21/2024 2:30 PM EDT Pulse 50 10/21/2024 2:30 PM EDT Temperature 36.3 C (97.4 F) 10/21/2024 2:23 PM EDT Respiratory Rate 15 10/21/2024 2:30 PM EDT Oxygen Saturation 95% 10/21/2024 2:30 PM EDT Inhaled Oxygen Concentration - - Weight 66 kg (145 lb 8.1 oz) 10/21/2024 10:37 AM EDT Height 157.5 cm (5' 2 ) 10/21/2024 10:37 AM EDT Body Mass Index 27.42 10/21/2024 10:37 AM EDT documented in this encounter Functional Status * Calculated C-SSRS Risk Score (Lifetime/Recent) Answer Date of Assessment Author No Risk Indicated 10/21/2024 10:33 AM EDT Jerardo Lowe RN * Question Answer Date of Assessment Author 1. Wish to be (Past 1 Month) No 025 10:33 AM EDT Jerardo Lowe RN 2. Non-Specific Active Suici olya Thoughts (Past 1 Month) No 10/21/2024 10:33 AM EDT Isela Lowe ea, RN 6. Suicidal Behavior (Lifetime) No 10:33 AM EDT Jerardo Lowe RN documented as of this encounter Discharge Instructions * Discharge Instructions* Khanh Galindo, RIBBON LAPPER TENDER - 10/21/2024 1:29 PM EDT TAVR Discharge [...] site occurs, hold pressure and contact the [facility] at [phone]. If after hours, call [phone]. For emergencies, call [phone]. Follow up: You will have an echocardiogram and follow-up with the Structural Team in 1 month. If you have not received a follow up appointment at the time of discharge, they will be in contact with you in the next few days via phone or mail reminder. If you do not hear from someone within 3-5 days, call the [facility] at [phone] for more information. Please call Rivas Martin RN, with any other questions. Medication Instructions: Antibiotics are required prior to all dental visits. Take Medication exactly as instructed in your discharge packet Do not take any medications that have not been ordered for you. This means do not take other people's medication, illegal drugs or substances. The following information is obtained directly from the [place]. https://www.heart.org/en/health-topics/infective-endocarditis What is Infective Endocarditis? [...] for up to 7 days. 20 tablet 5 11/03/19 25 documented as of this encounter Miscellaneous Notes * Mil Martino - Venkata Duong RN - 10/22/2024 11:25 AM EDT Images from the original note were not included. [id number] Heart Valve Problems: Aortic Stenosis Aortic stenosis [...] symptoms. Last Reviewed Date: 2023 00:00:00 ?? [id number] The [employer]. All rights reserved. This information is not [...] extracted and entered into the NCDR Clinical Registry/CMS Research as required by the National Coverage Decision.? NCT Identifier [id number]. Cardiac Diagnostics: Echo 08/17/2024: - LVEF 55-60%, [...] 137 bpm on Day :23:22 pm SVE(s): Iona was 0.09 %, 995 total SVE(s) SV Arrhythmia(s): 43 events, longest event 19 beats on Day :48:45 pm, fastest event 137 bpm on Day :23:26 pm PVC(s): Iona was 0.01 %, 128 total PVC(s), 4 disparate morphologies Ventricular Arrhythmia(s): 2 event(s), longest event 6 beats at Day :12:10 am, fastest [id number] bpm at Day :12:10 am Physician Comments: - Agree with findings. - No sustained arrhythmias noted. - Non-sustained atrial runs (Longest of 19 beats). CTA Chest 09/08/2024: - FINDINGS: Quantification of Aortic Valve Calcium Score: 1799 Volume: 1556 Aortic Root Measurements 3-Cusp view: CANADIAN 6 degrees; CAU 28 degrees Annulus area: [...] with 23 mm Abida 3 Ultra Bioprosthesis ([id number], Dr. Kane Hidalgo, [facility]). - bilateral groins stable without hematoma. - [...] - 1.1 mg/dL POCT eGFR 56 mL/min/1.73m*2 Special Education Secretary ID ChrissyJerardo su Device ID [id number] Comment ECG Adult Collection Time: 10/21/24 10:51 AM Result Value Ref Range EKG DIAGNOSIS CLASS Abnormal Ventricular Rate 62 BPM Atrial Rate 62 BPM [place] Interval 160 ms QRSD Interval 128 ms QT Interval 486 ms QTC Interval 493 ms P Howe -2 degrees R Howe -35 degrees T Wave Howe 4 degrees Diagnosis Sinus rhythm with premature [...] Rate 49 BPM Atrial Rate 49 BPM [place] Interval 176 ms QRSD Interval 138 ms QT Interval 552 ms QTC Interval 498 ms P Howe 20 degrees R Howe -42 degrees T Wave Howe 9 degrees Diagnosis Sinus bradycardia Diagnosis Left axis deviation Diagnosis Right bundle branch block Diagnosis Minimal voltage criteria for LVH, may be normal variant ( R in aVL ) Diagnosis Abnormal ECG Diagnosis Diagnosis Confirmed by Nick Tapia ([id number]) on 10/21/2024 8:25:02 PM CBC Collection Time: [...] Rate 75 BPM Atrial Rate 75 BPM [place] Interval 152 ms QRSD Interval 124 ms QT Interval 438 ms QTC Interval 489 ms P Howe 12 degrees R Howe -45 degrees T Wave Howe -12 degrees Diagnosis Normal sinus rhythm Diagnosis [...] Your Medications These medications were sent to [address] [place] [address] ondansetron ODT 4 MG disintegrating tablet Follow-Up [...] site occurs, hold pressure and contact the [facility] at [phone]. If after hours, call [phone]. For emergencies, call [phone]. Follow up: You will have an echocardiogram and follow-up with the Structural Team in 1 month. If you have not received a follow up appointment at the time of discharge, they will be in contact with you in the next few days via phone or mail reminder. If you do not hear from someone within 3-5 days, call the [facility] at [phone] for more information. Please call Rivas Martin RN, with any other questions. Medication Instructions: Antibiotics are required prior to all dental visits. Take Medication exactly as instructed in your discharge packet Do not take any medications that have not been ordered for you. This means do not take other people's medication, illegal drugs or substances. The following information is obtained directly from the [employer]. https://www.heart.org/en/health-topics/infective-endocarditis What is Infective Endocarditis? [...] Follow-Up Future Appointments Date Time Provider Department Center 10/27/2024 1:40 PM Amanda Adams MD [facility] 11/02/2024 11:[address] [facility] Pav A 11/02/2024 2:50 PM Vini Lord MD [facility] 11/17/2024 10:30 AM [facility] 11/17/2024 11:00 AM Dominguez Duffy MD [facility] Sam 11/17/2024 1:00 PM Kassi Ronquillo APRN [facility] Sam 12/15/2024 11:00 AM [facility] ECHO 2 [facility] 12/15/2024 12:30 PM Ankita Vásquez PA [facility] Discharge Disposition/Condition Disposition: Home Condition: Stable (s/sx potential problems absent or manageable) I spent > 30min working on this discharge including performing physical examination, review of laboratory/imaging results with the patient, discussion of medication management, and preparation of discharge paperwork. Kaylynn Chung APRN [phone] Cosigned by Kane Hidalgo MD at 10/23/2024 [...] no signs of heart block currently. Had Khanh Galindo come assess patient and make sure [...] Operative note TAVR : Date: 10/21/2024 Location: [facility] Name: Marya Guerrier, : 1940, Pre-operative Diagnosis: Problem List[1] Post-operative Diagnosis: Problem List[2] Surgeons: This procedure was performed jointly by Cardiothoracic Surgery physicians and Interventional Cardiology. The primary Cardiothoracic Surgery engine lathe set up operator tool was Dr. Nasra Gray. The primary Interventional Cardiology engine lathe set up operator tool was Dr. Kane Hidalgo Operation: Transcatheter aortic [...] right femoral artery, then we crossed the [place] aortic valve with J-wire exchanged over pigtail [...] was advanced to the level of the [place] aortic valve and positioned so that the [...] extracted and entered into the NCDR Clinical Registry/CMS Research as required by the National Coverage Decision.? NCT Identifier [id number]. 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 Tobacco Use Smoking status: Never Smokeless tobacco: [...] file Social Connections: Unknown (02/03/2023) Received from [facility] Family and Community Support Help with Day-to-Day Activities: Not on file Lonely or Isolated: Not on file Intimate Partner Violence: Unknown (02/03/2023) Received from [facility] Abuse Screen Unsafe at Home or Work/School: Not on file Feels Threatened by Someone?: Not on file Does Anyone Keep You from Contacting Others or Doint Things Outside the Home?: Not on file Physical Sign of Abuse Present: Not on file Housing Stability: Unknown (02/03/2023) Received from [facility] Housing Stability Current Living Arrangements: Not on [...] including risks, consent signed --Proceed with TAVR KACI SantosEsequiel Structural Heart [1] Past Medical History: Diagnosis [...] Lisinopril Cough * Hospital Course - Kaylynn Chung APRN - 10/20/2024 1:17 PM EDT Ms. Marya [...] extracted and entered into the NCDR Clinical Registry/CMS Research as required by the National Coverage Decision.? NCT Identifier [id number]. Cardiac Diagnostics: Echo 08/17/2024: - LVEF 55-60%, [...] 137 bpm on Day :23:22 pm SVE(s): Iona was 0.09 %, 995 total SVE(s) SV Arrhythmia(s): 43 events, longest event 19 beats on Day :48:45 pm, fastest event 137 bpm on Day :23:26 pm PVC(s): Iona was 0.01 %, 128 total PVC(s), 4 [...] Volume: 1556 Aortic Root Measurements 3-Cusp view: CANADIAN 6 degrees; CAU 28 degrees Annulus area: [...] with 23 mm Abida 3 Ultra Bioprosthesis ([id number], Dr. Kane Hidalgo, [facility]). - bilateral groins stable without hematoma. - [...] [facility] [address] [place] [address] 11/17/2024 11:00 AM EDT Office Visit [facility] [address] [place] [address] Dominguez Duffy MD [address] [place] [address] 11/17/2024 1:00 PM EDT Office Visit [facility] [address] [place] [address] Kassi Ronquillo, KARINA [address] [place] [phone] 12/15/2024 11:00 AM EDT Appointment Medical Office Building Cardiac Diagnostic Testing Medical Office Building Echo Lab [address], [address] [place] [address] 12/15/2024 12:30 PM EDT Office Visit [facility] [place] [address], [address] [place] [phone] Ankita Vásquez PA [address] [place] [address] 01/28/2025 11:20 AM EDT Office Visit [facility]ph[facility] & Mineral Metabolism [address], [address] [place] [phone] Amanda Adams MD [address] [place] [address] 03/08/2025 1:30 PM EST Appointment [facility] [address] [place] [address] 03/08/2025 3:50 PM EST Office Visit [facility] [address] [place] [address] Vini Lord MD [address] [facility] [address] [place] [address] 11/02/2025 9:30 AM EDT Appointment Medical Office Building Cardiac Diagnostic Testing Medical Office Building Echo Lab [address], [address] [place] [address] 11/02/2025 11:00 AM EDT Office Visit [facility] [address], [address] [place] [address] Ankita Vásquez PA [address] [place] [address] documented as of this encounter Procedures Procedure [...] ADULT TRANSTHORACIC LIMITED (10/22/2024 9:50 AM EDT) BSA 1.67 m2 PASHA ISCV Height 154.9 [...] ECG Atrial Rate 75 BPM MUSE ECG [place] Interval 152 ms MUSE ECG QRSD Interval 124 ms MUSE ECG QT Interval 438 ms MUSE ECG QTC Interval 489 ms MUSE ECG P Howe 12 degrees MUSE ECG R Howe -45 degrees MUSE ECG T Wave Howe -12 degrees MUSE ECG Diagnosis Normal sinus [...] Dawn MD on 10/22/2024 8:51 AM us Khanh Galindo RIBBON LAPPER TENDER IMG XR PROCEDURES Final Res ult * (ABNORMAL) Magnesium (10/22/2024 12:07 AM EDT) Magnesium, Plasma 1.8(L) 1.9 - 2.4 mg/dL 10/22/2024 12:47 AM EDT [facility] Blood Venous blood specimen / Unknown Venipuncture / Unknown 10/22/2024 12:07 AM EDT 10/22/2024 12:19 AM EDT Khanh Galindo RIBBON LAPPER TENDER LAB BLOOD ORDERABLES Final Result [facility] [address] [place] [address] * (ABNORMAL) Basic metabolic panel (10/22/2024 12:07 AM EDT) Glucose, Plasma 123(H) 74 - 99 mg/dL 10/22/2024 12:47 AM EDT [facility] BUN, Plasma 16 8 - 23 mg/dL 10/22/2024 12:47 AM EDT [facility] Creatinine, Plasma 0.78 0.60 - 1.10 mg/dL 10/22/2024 12:47 AM EDT [facility] BUN/Creatinine Ratio 21 10/22/2024 12:47 AM EDT [facility] Sodium, Plasma 135(L) 136 - 145 mmol/L 10/22/2024 12:47 AM EDT [facility] Potassium, Plasma 3.5(L) 3.6 - 4.9 mmol/L 10/22/2024 12:47 AM EDT [facility] Chloride, Plasma 96(L) 97 - 107 mmol/L 10/22/2024 12:47 AM EDT [facility] CO2, Plasma 26 22 - 29 mmol/L 10/22/2024 12:47 AM EDT [facility] Anion Gap 13 6 - 16 mmol/L 10/22/2024 12:47 AM EDT [facility] Total Calcium, Plasma 8.2(L) 8.9 - 10.2 mg/dL 10/22/2024 12:47 AM EDT [facility] eGFRcr 75.9 mL/min/1.7 3m*2 10/22/2024 12:47 AM EDT [facility] Comment:Reported eGFRcr in m L/min/1.73m2 is based the CKD-EPI 2020 equation that does not use a race coefficient. Blood Venous blood specimen / Unknown Venipuncture / Unknown 10/22/2024 12:07 AM EDT 10/22/2024 12:19 AM EDT Khanh Galindo APRN LAB BLOOD ORDERABLES Final Result [facility] [address] [place] [address] * (ABNORMAL) CBC (10/22/2024 12:07 AM EDT) WBC Count 13.53(H) 3.70 - 10.30 10*3/uL LAB HEMATOLOGY METHOD 10/22/2024 12:34 AM EDT [facility] RBC Count 4.54 3.90 - 5.20 10*6/uL LAB HEMATOLOGY METHOD 10/22/2024 12:34 AM EDT [facility] HGB 12.1 11.2 - 15.7 g/dL LAB HEMATOLOGY METHOD 10/22/2024 12:34 AM EDT [facility] HCT 36.9 34.0 - 45.0 % LAB HEMATOLOGY METHOD 10/22/2024 12:34 AM EDT [facility] Platelet Count 292 155 - 369 10*3/uL LAB HEMATOLOGY METHOD 10/22/2024 12:34 AM EDT [facility] MCV 81 79 - 98 fL LAB HEMATOLOGY METHOD 10/22/2024 12:34 AM EDT [facility] MCH 26.7 26.0 - 32.0 pg LAB HEMATOLOGY METHOD 10/22/2024 12:34 AM EDT [facility] MCHC 32.8 30.7 - 35.5 g/dL LAB HEMATOLOGY METHOD 10/22/2024 12:34 AM EDT [facility] RDW 15.8(H) 11.5 - 14.5 % LAB HEMATOLOGY METHOD 10/22/2024 12:34 AM EDT [facility] MPV 9.0 8.8 - 12.5 fL LAB HEMATOLOGY METHOD 10/22/2024 12:34 AM EDT [facility] nRBC 0.0 <=0.0 per 100 WBCs LAB HEMATOLOGY METHOD 10/22/2024 12:34 AM EDT [facility] Blood Venous blood specimen / Unknown Venipuncture / Unknown 10/22/2024 12:07 AM EDT 10/22/2024 12:20 AM EDT Khanh Galindo APRN LAB BLOOD ORDERABLES Final Result Performing Organization Address [facility] Co de Phone Number [facility] [address] [place] [address] * Daisy auris Surveillance by PCR (10/21/2024 5:27 PM EDT) Daisy auris PCR Result Not Detected Not Detected 10/22/2024 1:29 PM EDT [facility] Swab (Axilla and Groin) Non-blood Collection / Unknown 10/21/2024 5:27 PM EDT 10/21/2024 5:38 PM EDT Narrative [facility] - 10/22/2024 1:29 PM EDT This PCR assay was developed and its performance characteristics determined by [facility] as appropriate for clinical purposes. This assay has not been cleared or approved by the FDA, but is performed in a CLIA regulated laboratory that is qualified to perform high-complexity testing. Kane Hidalgo MD [facility]OLOG[facility] Final Result Performing Organization Address City/[facility] Co de Phone Number [facility] [address] [place] [address] * Multi Drug Resistance Test (10/21/2024 5:27 PM EDT) Culture No growth at day 1 10/22/2024 8:22 PM EDT [facility] Swab (Nares and Vilma Rectal) Non-blood Collection / Unknown 10/21/2024 5:27 PM EDT 10/21/2024 5:38 PM EDT Narrative [facility] - 10/22/2024 8:22 PM EDT This test was developed and its performance characteristics determined by the [facility]. Although the media is FDA-approved, it is not FDA-approved for all specimen types submitted. The FDA has determined that such clearance or approval is not necessary. This test is used for surveillance purposes. It should not be regarded as investigational or for research. The [facility] is certified under the Clinical Laboratory Improvement Amendments of 1988 (CLIA-88) as qualified to perform high complexity clinical laboratory testing. Kane Hidalgo MD LAB MICROBIOLOGY - GENERAL ALVAREZ MILES Final Result [facility] [address] [place] [address] * (ABNORMAL) Basic metabolic panel (10/21/2024 5:24 PM EDT) Glucose, Plasma 108(H) 74 - 99 mg/dL 10/21/2024 6:12 PM EDT [facility] BUN, Plasma 16 8 - 23 mg/dL 10/21/2024 6:12 PM EDT [facility] Creatinine, Plasma 0.84 0.60 - 1.10 mg/dL 10/21/2024 6:12 PM EDT [facility] BUN/Creatinine Ratio 19 10/21/2024 6:12 PM EDT [facility] Sodium, Plasma 138 136 - 145 mmol/L 10/21/2024 6:12 PM EDT [facility] Potassium, Plasma 4.2 3.6 - 4.9 mmol/L 10/21/2024 6:12 PM EDT [facility] Chloride, Plasma 99 97 - 107 mmol/L 10/21/2024 6:12 PM EDT [facility] CO2, Plasma 26 22 - 29 mmol/L 10/21/2024 6:12 PM EDT [facility] Anion Gap 13 6 - 16 mmol/L 10/21/2024 6:12 PM EDT [facility] Total Calcium, Plasma 8.4(L) 8.9 - 10.2 mg/dL 10/21/2024 6:12 PM EDT [facility] eGFRcr 69.5 mL/min/1.7 3m*2 10/21/2024 6:12 PM EDT [facility] Comment:Reported eGFRcr in m L/min/1.73m2 is based the CKD-EPI 2020 equation that does not use a race coefficient. Blood Venous blood specimen / Unknown Venipuncture / Unknown 10/21/2024 5:24 PM EDT 10/21/2024 5:40 PM EDT Khanh Galindo APRN LAB BLOOD ORDERABLES Final Result [facility] [address] [place] [address] * (ABNORMAL) CBC (10/21/2024 5:24 PM EDT) WBC Count 8.58 3.70 - 10.30 10*3/uL LAB HEMATOLOGY METHOD 10/21/2024 5:51 PM EDT [facility] RBC Count 4.81 3.90 - 5.20 10*6/uL LAB HEMATOLOGY METHOD 10/21/2024 5:51 PM EDT [facility] HGB 12.7 11.2 - 15.7 g/dL LAB HEMATOLOGY METHOD 10/21/2024 5:51 PM EDT [facility] HCT 39.6 34.0 - 45.0 % LAB HEMATOLOGY METHOD 10/21/2024 5:51 PM EDT [facility] Platelet Count 322 155 - 369 10*3/uL LAB HEMATOLOGY METHOD 10/21/2024 5:51 PM EDT [facility] MCV 82 79 - 98 fL LAB HEMATOLOGY METHOD 10/21/2024 5:51 PM EDT [facility] MCH 26.4 26.0 - 32.0 pg LAB HEMATOLOGY METHOD 10/21/2024 5:51 PM EDT [facility] MCHC 32.1 30.7 - 35.5 g/dL LAB HEMATOLOGY METHOD 10/21/2024 5:51 PM EDT [facility] RDW 15.7(H) 11.5 - 14.5 % LAB HEMATOLOGY METHOD 10/21/2024 5:51 PM EDT [facility] MPV 9.3 8.8 - 12.5 fL LAB HEMATOLOGY METHOD 10/21/2024 5:51 PM EDT [facility] nRBC 0.0 <=0.0 per 100 WBCs LAB HEMATOLOGY METHOD 10/21/2024 5:51 PM EDT [facility] Blood Venous blood specimen / Unknown Venipuncture / Unknown 10/21/2024 5:24 PM EDT 10/21/2024 5:44 PM EDT us Khanh Galindo APRN LAB BLOOD ORDERABLES Final Result [facility] [address] [place] [address] * ECG Adult (10/21/2024 2:28 PM EDT) EKG DIAGNOSIS CLASS Abnormal MUSE ECG Ventricular Rate 49 BPM MUSE ECG Atrial Rate 49 BPM MUSE ECG [place] Interval 176 ms MUSE ECG QRSD Interval 138 ms MUSE ECG QT Interval 552 ms MUSE ECG QTC Interval 498 ms MUSE ECG P Howe 20 degrees MUSE ECG R Howe -42 degrees MUSE ECG T Wave Howe 9 degrees MUSE ECG Diagnosis Sinus bradycardia MUSE ECG Diagnosis Left axis deviation MUSE ECG Diagnosis Right bundle branch block MUSE ECG Diagnosis Minimal voltage criteria for LVH, may be normal variant ( R in aVL ) MUSE ECG Diagnosis Abnormal ECG MUSE ECG Diagnosis MUSE ECG Diagnosis Confirmed by Nick Tapia ([id number]) on 10/21/2024 8:25:02 PM MUSE ECG 10/21/2024 [...] image quality and technique, now s/p HODA. us Kane Hidalgo MD CV ECHO PROCEDURES Final [...] Cardiothoracic Surgery physicians. The primary Interventional Cardiology engine lathe set up operator tool was Dr. Kane Hidalgo and the primary Cardiothoracic Surgery engine lathe set up operator tool was Dr. Neelima Gray. The procedure, risks, [...] Phase: Resting Aortic AO: 148/58 (90) mmHg Kane Hidalgo MD CV CARDIAC CATH PROCEDURES Vickie l Result * POCT ACT (10/21/2024 1:32 PM EDT) [facility] ACT (Low Range) 323 65 - 400 seconds 11/01/2024 9:14 AM EDT [facility] Special Education Secretary ID Nabila Aguilera 11/01/2024 9:14 AM EDT [facility]ALTH[facility] LAB ACT Device ID [id number] 11/01/2024 9:14 AM EDT [facility] Comment 11/01/2024 9:14 AM EDT [facility] Comment: ACT performed by staff at [...] 1:32 PM EDT 11/01/2024 9:14 AM EDT Kane Hidalgo MD LAB POINT OF CARE TE ST DOCKED DEVICE UNSOLICITED RESULTS Final Result Performing Organization Address City/State/[facility] Co de Phone Number [facility] [address] LAB [address] [place] [address] * ECG Adult (10/21/2024 10:51 AM EDT) EKG DIAGNOSIS CLASS Abnormal MUSE ECG Ventricular Rate 62 BPM MUSE ECG Atrial Rate 62 BPM MUSE ECG [place] Interval 160 ms MUSE ECG QRSD Interval 128 ms MUSE ECG QT Interval 486 ms MUSE ECG QTC Interval 493 ms MUSE ECG P Howe -2 degrees MUSE ECG R Howe -35 degrees MUSE ECG T Wave Howe 4 degrees MUSE ECG Diagnosis Sinus rhythm with premature atrial complexes MUSE ECG Diagnosis Left axis deviation in the presence of LAFB MUSE ECG Diagnosis Right bundle branch block MUSE ECG Diagnosis Minimal voltage criteria for LVH, may be normal variant ( R in aVL ) MUSE ECG Diagnosis Abnormal ECG MUSE ECG Diagnosis MUSE ECG Diagnosis Confirmed by Nick Tapia ([id number]) on 10/21/2024 7:47:18 PM MUSE ECG 10/21/2024 10:5 1 AM EDT 10/21/2024 7:47 PM EDT us Ankita RODRIGUEZ ECG ORDERABLES Final R esult MUSE ECG * POCT creatinine (10/21/2024 10:46 AM EDT) Pathologist [facility] Creatinine, Point of Care 1.0 0.6 - 1.1 mg/dL 10/21/2024 10:49 AM EDT [facility] POCT eGFR 56 mL/min/1. 73m*2 10/21/2024 10:49 AM EDT HEALTHCARE LAB Special Education Secretary ID Jerardo Lowe 10/21/2024 10:49 AM EDT HEALTHCARE LAB Device ID [id number] 10/21/2024 10:49 AM EDT HEALTHCARE LAB Comment 10/21/2024 10:49 AM EDT [facility] Comment:Testing performed on i-STAT at the point of care. Reported eGFRcr in mL/min/1.73m2 is based the CKD-EPI 2020 equation that does not use a race coefficient. Blood Venous blood specimen / Unknown 10/21/2024 10:46 AM EDT 10/21/2024 10:49 AM EDT us Kane Hidalgo MD LAB POINT OF CARE TE ST DOCKED DEVICE UNSOLICITED RESULTS Final Result [facility] [address] [place], [place] [id number] [place] [address] LAB [address] [place] [address] * Type and Screen (10/21/2024 10:41 AM EDT) ABO/Rh A Positive 10/21/2024 10:41 AM EDT BLOOD BANK Antibody Screen Negative 10/21/2024 10:41 AM EDT BLOOD BANK Specimen Expiration 10/24/2024 23:59 10/21/2024 10:41 AM EDT BLOOD BANK Blood Venous blood specimen / Unknown Venipuncture / Unknown 10/21/2024 10:41 AM EDT 10/21/2024 10:52 AM EDT Ankita RODRIGUEZ LAB BLOOD BANK TEST ORD ERABLES Final Result Performing Organization Address City/[facility]/ZIP Co de Phone Number BLOOD BANK [address] [place] [address], * N-Terminal Probnp (10/21/2024 10:41 AM EDT) N-Terminal, PROBNP, Plasma 496 0 - 1,799 pg/mL 10/21/2024 11:25 AM EDT [facility] Blood Venous blood specimen / Unknown Venipuncture / Unknown 10/21/2024 10:41 AM EDT 10/21/2024 10:55 AM EDT Ankita RODRIGUEZ LAB BLOOD ORDERABLES Fi nal Result [facility] [address] [place] [address] * (ABNORMAL) Basic metabolic panel (10/21/2024 10:41 AM EDT) Glucose, Plasma 116(H) 74 - 99 mg/dL 10/21/2024 11:25 AM EDT [facility] BUN, Plasma 18 8 - 23 mg/dL 10/21/2024 11:25 AM EDT [facility] Creatinine, Plasma 0.91 0.60 - 1.10 mg/dL 10/21/2024 11:25 AM EDT [facility] BUN/Creatinine Ratio 20 10/21/2024 11:25 AM EDT [facility] Sodium, Plasma 139 136 - 145 mmol/L 10/21/2024 11:25 AM EDT [facility] Potassium, Plasma 3.9 3.6 - 4.9 mmol/L 10/21/2024 11:25 AM EDT [facility] Chloride, Plasma 97 97 - 107 mmol/L 10/21/2024 11:25 AM EDT [facility] CO2, Plasma 26 22 - 29 mmol/L 10/21/2024 11:25 AM EDT [facility] Anion Gap 16 6 - 16 mmol/L 10/21/2024 11:25 AM EDT [facility] Total Calcium, Plasma 9.2 8.9 - 10.2 mg/dL 10/21/2024 11:25 AM EDT [facility] eGFRcr 63.1 mL/min/1.7 3m*2 10/21/2024 11:25 AM EDT [facility] Comment:Reported eGFRcr in m L/min/1.73m2 is based the CKD-EPI 2020 equation that does not use a race coefficient. Blood Venous blood specimen / Unknown Venipuncture / Unknown 10/21/2024 10:41 AM EDT 10/21/2024 10:55 AM EDT Ankita RODRIGUEZ LAB BLOOD ORDERABLES Fi nal Result [facility] [address] [place] [address] * (ABNORMAL) Hemogram (CBC) (10/21/2024 10:41 AM EDT) WBC Count 7.03 3.70 - 10.30 10*3/uL LAB HEMATOLOGY METHOD 10/21/2024 11:09 AM EDT [facility] RBC Count 5.07 3.90 - 5.20 10*6/uL LAB HEMATOLOGY METHOD 10/21/2024 11:09 AM EDT [facility] HGB 13.5 11.2 - 15.7 g/dL LAB HEMATOLOGY METHOD 10/21/2024 11:09 AM EDT [facility] HCT 41.4 34.0 - 45.0 % LAB HEMATOLOGY METHOD 10/21/2024 11:09 AM EDT [facility] Platelet Count 392(H) 155 - 369 10*3/uL LAB HEMATOLOGY METHOD 10/21/2024 11:09 AM EDT [facility] MCV 82 79 - 98 fL LAB HEMATOLOGY METHOD 10/21/2024 11:09 AM EDT [facility] MCH 26.6 26.0 - 32.0 pg LAB HEMATOLOGY METHOD 10/21/2024 11:09 AM EDT [facility] MCHC 32.6 30.7 - 35.5 g/dL LAB HEMATOLOGY METHOD 10/21/2024 11:09 AM EDT [facility] RDW 15.8(H) 11.5 - 14.5 % LAB HEMATOLOGY METHOD 10/21/2024 11:09 AM EDT [facility] MPV 8.9 8.8 - 12.5 fL LAB HEMATOLOGY METHOD 10/21/2024 11:09 AM EDT [facility] nRBC 0.0 <=0.0 per 100 WBCs LAB HEMATOLOGY METHOD 10/21/2024 11:09 AM EDT [facility] Blood Venous blood specimen / Unknown Venipuncture / Unknown 10/21/2024 10:41 AM EDT 10/21/2024 10:59 AM EDT Ankita RODRIGUEZ LAB BLOOD ORDERABLES Fi nal Result [facility] [address] [place] [address] documented in this encounter Visit Diagnoses Diagnosis Nonrheumatic aortic valve stenosis- Primary Nonrheumatic aortic valve stenosis documented in this [...] dose on Fri10/21/24 at 2100, Until Discontinued Given 10/22/2024 8:25 [...] Given 10/21/2024 5:05 PM EDT 10 mg iodixanol (VISIPaque) 320 MG/ML injection As needed, Starting on Fri10/21/24 at 1405, Until Fri10/21/24 at 1417, Routine, Intraprocedure Given 10/21/2024 2:05 PM EDT 60 mL levothyroxine (Synthroid, Levoxyl) tablet 175 mcg 175 mcg, Oral, Daily, First dose on Fri10/22/24 at 0900, Until Discontinued, Routine Given 10/22/2024 8:26 AM EDT 175 mcg lidocaine (Xylocaine) 2 % injection As needed, Starting on Fri10/21/24 at 1323, Until Fri10/21/24 at 1417, Routine, Intraprocedure Given 10/21/2024 1:28 PM EDT 5 mL Rig ht Femoral Given 10/21/2024 1:26 PM EDT 5 mL Le ft Femoral Given 10/21/2024 1:23 PM EDT 5 mL Ri ght Femoral magnesium oxide (Mag-Ox) tablet 400 mg 400 mg, Oral, 2 times daily, First dose on Fri10/21/24 at 2100, Until Discontinued, Routine Given 10/22/2024 8:25 AM EDT 400 mg Given 10/21/2024 9:24 PM EDT 400 mg multivitamin (Theragran-M) tablet 1 tablet 1 tablet, [...] Given 10/21/2024 9:24 PM EDT 1 Application ondansetron (Zofran) injection 4 mg 4 mg, Intravenous, Every 6 hours PRN, Starting on Fri10/22/24 at 0727, Until Fri10/22/24 at 1419, STAT, nausea, vomiting Given 10/22/2024 7:47 AM EDT 4 mg pantoprazole (Protonix) EC tablet 40 mg 40 mg, Oral, Daily, First dose on Fri10/22/24 at 0900, Until Discontinued, Routine Given 10/22/2024 8:26 AM EDT 40 mg sodium chloride 0.9 % flush 10 mL [...] Given 10/22/2024 8:25 AM EDT 320 mg documented in this encounter Active and Recently Administered Medications Times are shown in EDT. Scheduled Medication Order 10/20/2024 10/21/2024 10/22/2024 aspirin chewable tablet 81 mg 81 mg, Oral, Daily, First dose on Fri10/22/24 at 0900, Until Discontinued, Routine, Recovery(Phase II-Outpatient)/On Unit(Inpatient) 824 (Given - Provid er: Venkata Duong RN) calcitriol (Rocaltrol) capsule 0.5 mcg 0.5 mcg, Oral, Daily, First dose on Fri10/22/24 at 0900, Until Discontinued, Routine 824 (Given - Provid er: Venkata Duong RN) calcium carbonate (Tums) chewable tablet 3,000 mg 3,000 mg, Oral, 2 times daily, First dose on Fri10/21/24 at 2100, Until Discontinued 2123 (Given - Provider: Chanda Vasquez) 824 (Given - Provider: Venkata Duong RN) escitalopram (Lexapro) tablet 10 mg 10 mg, Oral, Every morning, First dose on Fri10/22/24 at 0600, Until Discontinued, Routine 527 (Given - Provid er: Chanda Vasquez) ketorolac (Toradol) injection 15 mg (COMPLETED) 15 mg, Intravenous, Once, 1 dose, On Fri10/22/24 at 0245, STAT 015 (Given - Provid er: Chanda Vasquez) levothyroxine (Synthroid, Levoxyl) tablet 175 mcg 175 mcg, Oral, Daily, First dose on Fri10/22/24 at 0900, Until Discontinued, Routine 825 (Given - Provid er: Venkata Duong RN) magnesium oxide (Mag-Ox) tablet 400 mg 400 mg, Oral, 2 times daily, First dose on Fri10/21/24 at 2100, Until Discontinued, Routine 2123 (Given - Provider: Chanda Vasquez) 824 (Given - Provider: Venkata Duong RN) magnesium [...] Last dose on Fri10/26/24 at 0900, Routine 212 (Given - Provider: Chanda Vasquez) 0826 (Given - Provider: Venkata Duong RN) NIFEdipine XL (Procardia XL) 24 hr tablet 30 mg (COMPLETED) 30 mg, Oral, Daily, 1 dose, First dose on Fri10/22/24 at 0230, Routine 0145 (Given - Provid er: Chanda Vasquez) NIFEdipine XL (Procardia XL) 24 hr tablet 30 mg (COMPLETED) 30 mg, Oral, Once, 1 dose, On Fri10/22/24 at 0400, Routine 0528 (Given - Provid er: Chanda Vasquez) NIFEdipine XL (Procardia XL) 24 hr tablet 60 mg 60 mg, Oral, Every evening, First dose on Fri10/22/24 at 1700, Until Discontinued, Routine pantoprazole (Protonix) EC tablet 40 mg 40 mg, Oral, Daily, First dose on Fri10/22/24 at 0900, Until Discontinued, Routine 08 (Given - Provid er: Venkata Duong RN) [...] Comment: Automatically canceled at discontinue of medication order)2124 (Given - Provider: Chanda Vasquez) 103 (Given - Provider: Venkata Duong RN) valsartan [...] mL/hr, STAT 1153 (Given - Provider: Jerardo Lowe, RN)1213 (Given - Provider: Ray Fall DO) [...] 150 mmHg. 1705 (Given - Provider: Porter Bartlett, KASSI) 0109 (Given - Provider: Chanda Vasquez)0604 (Given - Provider: Chanda Vasquez) iodixanol (VISIPaque) 320 MG/ML injection (CANCELED) As needed, Starting on Bev 10/21/24 at 1405, Until Bev 10/21/24 at 1417, Routine, Intraprocedure 1405 (Given - Provider: Kane Hidalgo MD - Comment: TAVR) lidocaine (Xylocaine) 2 % injection (CANCELED) As needed, Starting on Bev 10/21/24 at 1323, Until Bev 10/21/24 at 1417, Routine, Intraprocedure 1323 (Given - Provider: Kane Hidalgo MD)1326 (Given - Provider: Kane Hidalgo MD)1328 (Given - Provider: Kane Hidalgo MD) ondansetron (Zofran) injection 4 mg (CANCELED) 4 mg, Intravenous, Every 8 hours PRN, Starting on Bev 10/21/24 at 1830, Until Fri10/22/24 at 0727, STAT, nausea, vomiting 1838 (Given - Provider: Porter Bartlett, KASSI) 0108 (Given - Provider: Chanda Vasquez) ondansetron [...] And Saline lock IV (CANCELED) Once, On Fri10/21/24 at 1041, For 1 occurrence, On Unit [...] documented as of this encounter Care Teams Director Pharmaceutical Relationship Specialty Start Date End Date Onur Guerrero MD PCP - General Family Medicine 01/22/22 documented as of this encounter
--- OUTSIDE RECORDS SUMMARY | 2024-10-21 12:43 | XMS_ITS | Encounter Summary ---
Author Organization Healthcare Address [address] [place] [address] Care Team Providers Care Manager Government Name Role Phone Onur Guerrero MD Primary Care Provider Dyana vailable Reason for Visit * Auth/Cert (Routine) Specialty Diagnoses / Procedures Referred By Contac t Referred To Contact Diagnoses Nonrheumatic aortic valve stenosis Nonrheumatic aortic valve stenosis [I35.0] Procedures IN REPLACE AORTIC VALVE PERQ FEMORAL ARTRY APPROACH TAVR IMPLANTATION, AORTIC VALVE, TRANSCATHETER Kane Hidalgo MD [address] [place] [phone] Phone: tel: fax: Cardiac Atmospheric Sciences Professor [address] [place] [phone] Phone: tel: Referral ID Status Reason Start Date Expiration Date Visits Re quested Visits Authorized [id number] 1 1 Encounter Details Date Type Department Care Team (Late st Contact Info) Description 10/21/2024 12:43 PM EDT Anesthesia Event Cardiac Atmospheric Sciences Professor [address] [place] [phone] Yong Agudelo MD [address] [place] [phone] Ray Fall, [address] [place] [address] Anesthesia Record Procedure Summary Procedure Name Responsible Anesthesiologist Anesthesia Start Time Anesthesia Stop Time TAVR Yong Agudelo MD 10/21/24 1243 09/27 10/20 1422 Events Date Time Event Comment 10/21/2024 1044 1243 An Start The patient was reevaluated immediately before sedation and remains eligible for anesthesia plan. 1243 In Room 1243 An Start Data 1248 An Induction The patient was reevaluated immediately before moderate or deep sedation use and before anesthesia induction. 1248 Anesthesia Ready 1323 Proc Start 1337 ACT Performed 323 1337 Perfusion Start 1400 Perfusion Stop 1409 Proc Fin 1415 an stop data 1417 Out of Room 1421 Handoff to Receiving I compl eted my handoff to the receiving clinician during which we: 1. Identified the patient 2. Identified the responsible provider 3. Reviewed the pertinent medical history 4. Discussed the surgical course 5. Reviewed intra-op anesthesia management and issues during anesthesia 6. Set expectations for post-procedure period 7. Allowed opportunity for questions and acknowledgement of understanding. 1422 An Stop Meds Name Total fentaNYL (Sublimaze) injection 50 mcg/mL 100 mcg ondansetron (Zofran) injection 2 mg/mL 4 mg ceFAZolin 1 g 2 g heparin (porcine) 1000 UNIT/ML 8,000 Uni ts protamine injection 50 mg dexmedetomidine (Precedex) injection 100 mcg/mL 64 mcg Vancomycin HCl in NaCl (Vancocin) IVPB 1 ,000 mg 1 g glycopyrrolate (Robinul) injection 0.2 m g/mL 0.2 mg nitroglycerin (Tridil) infusion 100 mcg/ mL 150 mcg sodium chloride 0.9 % infusion 600 mL * Agents Name O2 * Blood No blood administrations on file. Lines, Drains, and Airways Type Details Placement Removal Peripheral IV Placement Date: 09/27 10/20; Placement Time: 1040; Catheter Size: 18 G; Orientation: Right; Location: Antecubital; Site Prep: Alcohol; Technique: Anatomical landmarks; Inserted by: Asha; Insertion Attempts: 1; Patient Tolerance: Tolerated well; Removal Date: 10/21/24; Removal Time: 2151; Removal Reason: Per patient/family request 10/21/24 1040 by Jerardo Lowe RN 10/21/242151 by Chanda Vasquez Peripheral IV Placement Date: 09/27 10/20; Placement Time: 1044; Catheter Size: 20 G; Orientation: Left; Location: Antecubital; Site Prep: Alcohol; Technique: Anatomical landmarks; Inserted by: Asha; Insertion Attempts: 1; Patient Tolerance: Tolerated well; Removal Date: 10/22/24; Removal Time: 1126 10/21/24 1044 by Jerardo Lowe RN 10/22/24 1126 by Venkata Duong RN Arterial Sheath 10/21/24; 1326; No; Yes; 6 Fr.; Right; Femoral; upsized to 14FR; Kane Hidalgo MD; Injectable; Chlorhexidine ; Yes; 10/21/24; 1402 10/21/24 1326 by Ankita Alvarez RN 10/21/24 1402 by Ankita Alvarez RN Arterial Sheath 10/21/24; 1328; No; Yes; 7 Fr.; Left; Femoral; No; Kane Hidalgo MD; Injectable; Chlorhexidine ; Yes; 10/21/24; 1404; Per protocol; No complications, Catheter intact 10/21/24 1328 by Ankita Alvarez RN 10/21/24 1404 by Ankita Alvarez RN Venous Sheath 10/21/24; 1330; No; Yes; 8 Fr.; Right; Femoral; No; Kane Hidalgo MD; Injectable; Chlorhexidine ; Yes; 10/21/24; 1408; Per protocol; No complications, Catheter intact 10/21/24 1330 by Ankita Alvarez RN 10/21/24 1408 by Ankita Alvarez RN documented in this encounter Social History Tobacco [...] Start Date Job End Date 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 Wish to be (Past 1 Month) No 025 8:52 PM EDT Chanda Vasquez 2. Non-Specific Active Suici olya Thoughts (Past 1 Month) No 10/21/2024 8:52 PM EDT Patel Vasquez 6. Suicidal Behavior (Lifetime) No 8:52 PM EDT Chanda Vasquez documented as of this encounter Miscellaneous Notes * Anesthesia Postprocedure Evaluation - Ray Fall DO - 10/21/2024 2:22 PM EDT Patient: Marya Ring Anesthesia Type: MAC Vitals Value Taken Time BP 131/68 10/21/24 14:22 Temp 97.2 10/21/24 14:22 Pulse 52 10/21/24 14:22 Resp 14 10/21/24 14:22 SpO2 98 10/21/24 14:22 Anesthesia Post Evaluation Patient location during evaluation: PACU Patient participation: complete - patient participated Level of consciousness: awake Pain management: adequate (pain score 0-3) Airway patency: natural airway Cardiovascular status: acceptable and hemodynamically stable Respiratory status: acceptable and face mask Hydration status: acceptable Nausea/Vomiting: No No notable events documented. Cosigned by Yong Agudelo MD at 10/21/2024 2:44 PM EDT Associated attestation - Yong Agudelo MD - 10/21/2024 2:44 PM EDT I agree with the findings and care plan documented in the postprocedure evaluation note. * Anesthesia Preprocedure Evaluation - Yong Agudelo MD - 10/21/2024 7:15 AM EDT Images from the original note were not included. Anesthesiologist: (Unknown) TECHNICAL SUPPORT SPECIALIST: (Unknown) Pyrotechnic Mixer: (Unknown) Patient: Marya Guerrier is a 84 y.o. female with body mass index is 25.61 kg/m??. 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 MEDICATIONS Outpatient Current Outpatient Medications Medication Instructions aspirin (ASPIRIN) [...] Daily valsartan (DIOVAN) 320 mg, Oral, Daily Scheduled Current Scheduled Medications[3] PRNs Current PRN Medications[4] SURGICAL HX: Surgical History[5] SOCIAL HX: Social History[6] OBJECTIVE DATA LABS Lab Results Component Value Date WBC 8.92 07/19/2024 HGB 13.0 07/19/2024 HCT 39.7 07/19/2024 MCV 82 07/19/2024 PLT 417 (H) 07/19/2024 Lab Results Component Value Date CALCIUM 9.3 07/06/2024 BUN 20 07/06/2024 CREATININE 1.11 (H) 07/06/2024 BCR 18 07/06/2024 NA 135 (L) 07/06/2024 K 3.5 (L) 07/06/2024 CL 91 (L) 07/06/2024 CO2 27 07/06/2024 Type and Screen No results found for: ABO Lab Results Component Value Date HGBA1C 6.1 (H) 11/19/2023 No results found for: PGLU , GLUCOSE ABG No results found for: PHART , LUG5CTI , PO2ART , SO2ART , BEART , ADH8FKP , HCTART , SODIUMART , POTASSIUMART , POCTCL , POCGLU , IONCALART , LACTATE Lab Results Component Value Date CAION 3.6 (L) 08/17/2021 ECHO Echo, Adult Transthoracic Complete Result Date: 08/17/2024 Left Ventricle: The left ventricle is normal size. There is concentric remodeling. The left ventricular systolic function is normal. The LVEF is visually estimated at 55 - 60%. The diastolic functionis abnormal. There is grade I (mild) diastolic dysfunction. No regional wall motion abnormalities are seen. Right Ventricle: The right ventricle is normal in size. The right ventricular systolic function is normal. Aortic Valve: There is mild to moderate aortic valve regurgitation with an eccentricjet directed against the anterior mitral leaflet. There is moderate aortic stenosis. The peak gradient is 56 mmHg. The mean gradient is 31 mmHg. The estimated aortic valve area by the continuity equation is 1.1 cm2. Pericardium: No pericardial effusion. Compared to the most recently available priorstudy, and allowing for differences in image quality and technique, aortic valve gradients have increased. PFTs No results found for: OGJ5NOI , WTE1GKMY , DFO4GWK , FVCPRED BP Readings from Last 5 Encounters: 09/08/24 (!) 148/74 08/23/24 (!) 148/73 08/17/24 (!) 141/76 08/17/24 (!) 141/76 07/19/24 120/58 Physical Exam Airway Mallampati: III Mouth opening: normal Neck ROM: full Cardiovascular Rhythm: regular (+) murmur Dental Pulmonary (+) decreased breath sounds Neurological Oriented: normal to time, normal to place and normal to person Skin Musculoskeletal Extremities Anesthesia Plan ASA 4 Plan was reviewed with: resident Anesthesia technique(s) discussed with the patient/family: general and MAC Anesthesia plan agreed upon was: MAC Anesthetic plan and risks discussed with patient. Use of blood products discussed with patient who. Anesthesia Evaluation [1] Allergies Allergen Reactions Amoxicillin-Pot Clavulanate Unknown - Patient states they do not know rxn details Lisinopril Cough [2] Past Medical History: Diagnosis Date Anxiety GERD (gastroesophageal reflux disease) Hepatitis Hep C treated with interferon Hepatitis C High blood pressure Hyperparathyroid Liver disease Medullary thyroid carcinoma Sinus problem [3] [4] [5] Past Surgical History: Procedure Laterality Date GALLBLADDER SURGERY HYSTERECTOMY NECK MASS EXCISION Right 11/02/2019 PARATHYROIDECTOMY TOTAL THYROIDECTOMY Bilateral 04/01/2017 WRIST SURGERY Left [6] Social History Tobacco Use Smoking status: Never Smokeless tobacco: Never Vaping Use Vaping status: Never Used Substance Use Topics Alcohol use: Never Drug use: Never documented in this encounter Plan of Treatment Upcoming Encounters Date Type Department Care Team (Late st Contact Info) Description 11/17/2024 10:30 AM EDT Clinical Support [facility] [address] [facility] [place] [address] 11/17/2024 11:00 AM EDT Office Visit [facility] [address] [facility] [place] [address] [place] [address] [place] [address] [address] [place] [address] 11/17/2024 1:00 PM EDT Office Visit [facility] [address] [facility] [place] [address] Kassi Ronquillo, TECHNICAL SERVICE REPRESENTATIVE [address] [place] [address] 12/15/2024 11:00 AM EDT Appointment Medical Office Building Cardiac Diagnostic Testing Medical Office Building Echo Lab [address] [facility] [place] [phone] 12/15/2024 12:30 PM EDT Office Visit [facility] [place] [address] [facility], [address] [place] [phone] Ankita Vásquez PA [address] [place] [address] 01/28/2025 11:20 AM EDT Office Visit [facility] Nephrology[facility] Bone [facility] Mineral Metabolism [address] [facility] [place] [address] Amanda Adams MD [address] [facility] [address] [place] [address] 03/08/2025 1:30 PM EST Appointment [facility] [address] [place] [phone] 03/08/2025 3:50 PM EST Office Visit [facility] [address] [place] [phone] Vini Lord MD [address] [facility] [address] [place] [address] 11/02/2025 9:30 AM EDT Appointment Medical Office Building Cardiac Diagnostic Testing Medical Office Building Echo Lab [address] [facility] [place] [address] 11/02/2025 11:00 AM EDT Office Visit [facility] [place] [address] [facility] [place] [address] Ankita Vásquez PA [address] [place] [address] documented as of this encounter Visit Diagnoses Not on filedocumented in this encounter Administered Medications Inactive Administered Medications - up to 3 most recent administrations Medication Order MAR Action Action Date Dose Rate Site ceFAZolin (Ancef) injection Intravenous, As needed, Starting on Bev 10/21/24 at 1252, Until Bev 10/21/24 at 1422, Routine, Anesthesia Intraprocedure Given 10/21/2024 12:52 PM EDT 2 g dexmedetomidine (Precedex) 100 MCG/ML concentrated solution Intravenous, As needed, Starting on Bev 10/21/24 at 1250, Until Bev 10/21/24 at 1422, Routine, Anesthesia Intraprocedure Given 10/21/2024 1:17 PM EDT 12 mcg Given 10/21/2024 1:05 PM EDT 12 mcg Given 10/21/2024 12:57 PM EDT 12 mcg fentaNYL (Sublimaze) injection Intravenous, As needed, Starting on Bev 10/21/24 at 1253, Until Bev 10/21/24 at 1422, Routine, Anesthesia Intraprocedure Given 10/21/2024 1:47 PM EDT 25 mcg Given 10/21/2024 1:26 PM EDT 25 mcg Given 10/21/2024 12:53 PM EDT 50 mcg glycopyrrolate (Robinul) injection Intravenous, As needed, Starting on Bev 10/21/24 at 1306, Until Bev 10/21/24 at 1422, Routine, Anesthesia Intraprocedure Given 10/21/2024 1:10 PM EDT 0.1 mg Given 10/21/2024 1:06 PM EDT 0.1 mg heparin (porcine) injection Intravenous, As needed, Starting on Bev 10/21/24 at 1328, Until Bev 10/21/24 at 1422, Routine, Anesthesia Intraprocedure Given 10/21/2024 1:28 PM EDT 8,000 Units nitroglycerin (Tridil) in D5W IV solution 100 mcg/mL Intravenous, As needed, Starting on Bev 10/21/24 at 1359, Until Bev 10/21/24 at 1422, Routine, Anesthesia Intraprocedure Given 10/21/2024 1:59 PM EDT 150 mcg ondansetron (Zofran) injection Intravenous, As needed, Starting on Bev 10/21/24 at 1250, Until Bev 10/21/24 at 1422, Routine, Anesthesia Intraprocedure Given 10/21/2024 12:50 PM EDT 4 mg protamine injection Intravenous, As needed, Starting on Bev 10/21/24 at 1403, Until Bev 10/21/24 at 1422, Routine, Anesthesia Intraprocedure Given 10/21/2024 2:03 PM EDT 50 mg sodium chloride 0.9 % infusion Intravenous, Continuous PRN, Starting on Bev 10/21/24 at 1226, Until Bev 10/21/24 at 1422, Routine New Bag 10/21/2024 12:26 PM EDT Vancomycin HCl in NaCl (Vancocin) IVPB 1,000 mg 1,000 mg (rounded from 952.5 mg = 15 mg/kg 63.5 kg), Intravenous, Once, 1 dose, On Bev 10/21/24 at 1130, at 250 mL/hr, STAT Given 10/21/2024 12:13 PM EDT 1 g Given 10/21/2024 11:53 AM EDT 1,000 mg 250 mL/hr documented in this encounter Additional Health Concerns Assessment Noted Time PHQ-9 Depression Total Score: 0 08/24/19 10:33 AM EDT A fall risk assessment has been complete d for the patient 09/08/2024 10:05 AM EDT A Body Mass Index follow-up plan has been documented for the patient 10/22/2024 11:26 AM EDT documented as of this encounter Care Teams Manager Government Relationship Specialty Start Date End Date Onur Guerrero MD PCP - General Family Medicine 01/22/22 documented as of this encounter
--- OUTSIDE RECORDS SUMMARY | 2024-10-27 13:40 | XMS_ITS | Encounter Summary ---
Author Organization Healthcare Address [address] [place] [address] Care Team Providers Care Statistical Clerk Advertising Name Role Phone Onur Guerrero MD Primary Care Provider Dyana vailable Reason for Referral * Consultation (Routine) - Authorized Specialty Diagnoses / Procedures Referred By Contac t Referred To Contact Diagnoses CKD (chronic kidney disease) stage 2, GFR 60-89 ml/min Other secondary hypertension Amanda Adams MD [address] [address] [address] Phone: tel: fax: Referral ID Status Reason Start Date Expiration Date V isits Requested Visits Authorized [id number] Authorized 10/27/2024 04/28/2026 1 1 Reason for Visit * Reason Comments Follow-up Encounter Details Date Type Department Care Team ([facility] st Contact Info) Description 10/27/2024 1:40 PM EDT Office Visit [facility] Nephrology, Bone & Mineral Metabolism [address], [address] [place] [address] Amanda Adams MD [address] [employer] 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 Not on file Not on fi le 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 Not on file Not on jessica e documented as of this encounter Last Filed Vital Signs Vital Sign Reading Time Taken Comments Blood Pressure 212/80 10/27/2024 1:40 PM EDT RN verified w/manual, pt denies cp, soa, dizziness, vision changes, admits to recent fall Pulse 73 10/27/2024 1:26 PM EDT Temperature 37.1 C (98.7 F) 10/27/2024 1:26 PM EDT Respiratory Rate 16 10/27/2024 1:26 PM EDT Oxygen Saturation 93% 10/27/2024 1:2 6 PM EDT Inhaled Oxygen Concentration - - Weight 65.7 kg (144 lb 12.8 oz) 10/27/2024 1:26 PM EDT Height 157.5 cm (5' 2 ) 10/27/2024 1:26 PM EDT per pt Body Mass Index 26.48 10/27/2024 1:26 PM EDT documented in this encounter Miscellaneous Notes * Progress Notes - Cynthia Yanes MD - 10/27/2024 1:40 PM EDT EVAN Guerrier is a 84 y.o. female who presents for follow-up of CKD 2, proteinuria. 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 Tolerated well and feels as though edema is improving as well. BP elevated >200 on initial reading with subsequent readings 170/70s. Reports BP at home 120-130s systolic and good adherence to current anti-HTN regimen. Denies any current chest pain, vision changes, SOA, or HOOKER. Pt continues on vandetinib 100 mg daily. Denies hematuria, dysuria, abd pain, SOA, CP. Overall, feeling well. 174/71, 184/74 OBJECTIVE Vitals: 10/27/24 1332 BP: (!) 204/81 Pulse: Resp: Temp: SpO2: PHYSICAL EXAMINATION Gen: NAD, elderly HEENT: AT/NC, EOMI, MMM Skin: warm, dry CV: RRR, trace to mild edema Pulm: no increased work of breathing, symmetric chest expansion, good inspiratory/expiratory effort GI: abd soft, ND Neuro: alert, interactive, cortical function grossly intact LAB RESULTS Lab Results Component Value Date CREATININE 0.78 10/22/2024 BUN 16 10/22/2024 NA 135 (L) 10/22/2024 K 3.5 (L) 10/22/2024 CL 96 (L) 10/22/2024 CO2 26 10/22/2024 Lab Results Component Value Date ALBUMIN 4.2 07/06/2024 Lab Results Component Value Date CALCIUM 8.2 (L) 10/22/2024 PHOS 5.5 (H) 07/06/2024 Lab Results Component Value Date WBC 13.53 (H) 10/22/2024 HGB 12.1 10/22/2024 HCT 36.9 10/22/2024 MCV 81 10/22/2024 PLT 292 10/22/2024 ASSESSMENT/PLAN Assessment: 84 year old female who presented to the clinic today for follow-up of CKD 2, proteinuria. - CKD 2/3: VIC improved with Cr back toward baseline of of 0.8-1.0. Current Cr 0.78. Renal functionchanges related to vandetanib per renal biopsy. Electrolytes stable, have had to hold hydrochlorothiazide in past due to electrolyte abnormalities (hyponatremia, hypokalemia, hypomagnesemia, etc). - Hypertension: on nifedipine 60 mg at bedtime, hydrochlorothiazide 25 QAM, and valsartan 320 mg daily; reports good adherence to regimen. - Proteinuria: UPC 4.4, improved from 5.7 mg/mg on outside labs in media tab. Likely due to VEGF inhibition which we commonly see. Low muscle mass may also make UPC appear more elevated. 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 Chronic changes with 23% globally sclerotic glomeruli. Moderate IF, moderate TA, severe intimal fibrosis of small arteries, and severe degree of arteriolar hyalinization. Noimmune complexes. - Hypervolemia: improving. Back on thiazide which may have worsened hyponatremia, hypokalemia, hypoMg, etc, which can be seen in vandetanib use. - Hypomagnesemia: on repletion. 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 On vandetanib 100 mg daily. Plan/Recs: - continue curernt anti-HTN regimen as pressures normotensive at home. Will monitor pressures at home and let us know if pressures continues to be elevated and will adjust regimen at that time. - will monitor therapy, edema, and UPC - continue following with oncology RTC in 3 months No orders of the defined types were placed in this encounter. Note to Patient: The Century Cure Act makes medical noted like these available to patients in the interest of transparency. However, be advised this is a medical document. It is intended as peerto peer communication. It is written in medical language and may contain abbreviations or verbiage that are unfamiliar. It may appear blunt or direct. Medical documents are intended to carry relevantinformation, facts as evident, and the clinical opinion of the physician Cosigned by Amanda Adams MD at 11/01/2024 12:19 PM EDT Associated attestation - Amanda Adams MD - 11/01/2024 12:19 PM EDT I saw and evaluated the patient with the resident/fellow. I discussed the case with the resident/fellow and agree with the findings and plan as documented. documented in this encounter Plan of Treatment Upcoming Encounters Date Type Department Care Team (Late st Contact Info) Description 11/17/2024 10:30 AM EDT Clinical Support [facility] [address] [facility] [place] [address] 11/17/2024 11:00 AM EDT Office Visit [facility] [address] [facility] [place] [address] Dominguez Duffy MD [address] [facility] [address] [place] [address] 11/17/2024 1:00 PM EDT Office Visit [facility] [address] [facility], [address] [place] [address] Kassi Ronquillo, [employer] [address] [place] [address] 12/15/2024 11:00 AM EDT Appointment Medical Office Building Cardiac Diagnostic Testing Medical Office Building Echo Lab [address] [facility], [address] [place] [address] 12/15/2024 12:30 PM EDT Office Visit [facility] [place] [address] [facility], [address] [place] [phone] Ankita Vásquez, PA [address] [place] [address] 01/28/2025 11:20 AM EDT [facility] Mineral Met[facility] [address] [facility], [address] [place] [address] Amanda Adams MD [address] [facility] [address] [place] [address] 03/08/2025 1:30 PM EST Appointment [facility] [address] [place] [address] 03/08/2025 3:50 PM EST Office Visit [facility] [address] [place] [address] Vini Lord MD [address] [facility] [address] [place] [address] 11/02/2025 9:30 AM EDT Appointment Medical Office Building Cardiac Diagnostic Testing Medical Office Building Echo Lab [address] [facility], [address] [place] [address] 11/02/2025 11:00 AM EDT Office Visit [facility] [place] [facility] [address] [facility], [address] [place] [address] Ankita Vásquez PA [address] [place] [address] Scheduled Orders Name Type Priority Associated Diagnoses Orde r Schedule Creatinine, Random, Urine Lab Routine CKD (chronic kidney disease) stage 2, GFR 60-89 ml/min Other secondary hypertension Expected: 10/27/2024 (Approximate), Expires: 04/29/2026 Protein, Random, Urine with Creatinine Lab Routine CKD (chronic kidney disease) stage 2, GFR 60-89 ml/min Other secondary hypertension Expected: 10/27/2024 (Approximate), Expires: 04/29/2026 Urinalysis with reflex microscopic (Culture NOT Included) Lab Routine CKD (chronic kidney disease) stage 2, GFR 60-89 ml/min Other secondary hypertension Expected: 10/27/2024 (Approximate), Expires: 04/29/2026 CBC W/O Differential Lab Routine CKD (chronic kidney disease) stage 2, GFR 60-89 ml/min Other secondary hypertension Expected: 10/27/2024 (Approximate), Expires: 04/29/2026 Renal Function Panel, Plasma Lab Routine CKD (chronic kidney disease) stage 2, GFR 60-89 ml/min Other secondary hypertension Expected: 10/27/2024 (Approximate), Expires: 04/29/2026 Scheduled Referrals Name Type Priority Associated Diagnoses Orde r Schedule Follow Up Nephrology Outpatient Referral Routine CKD (chronic kidney disease) stage 2, GFR 60-89 ml/min Other secondary hypertension Expected: 01/27/2025 (Approximate), Expires: 11/27/2025 documented as of this encounter Visit Diagnoses Diagnosis CKD (chronic kidney disease) stage 2, GFR 60-89 ml/min- Primary Chronic kidney disease, Stage II (mild) Other secondary hypertension documented in this encounter Additional Health Concerns Assessment Noted Time PHQ-9 Depression Total Score: 0 08/24/19 25 10:33 AM EDT A fall risk assessment has been complete d for the patient 10/27/2024 1:30 PM EDT A Body Mass Index follow-up plan has been documented for the patient 11/01/2024 12:19 PM EDT documented as of this encounter Care Teams Statistical Clerk Advertising Relationship Specialty Start Date End Date Onur Guerrero MD PCP - General Family Medicine 01/22/22 documented as of this encounter
--- OUTSIDE RECORDS SUMMARY | 2024-11-02 10:21 | XMS_ITS | Encounter Summary ---
Author Organization [facility] Address [address] [place] [address] Care Team Providers Care Pickling Operator Name Role Phone Onur Guerrero MD Primary Care Provider Dyana vailable Reason for Referral * Imaging (Routine) - Closed Specialty Diagnoses / Procedures Referred By Contac t Referred To Contact Radiology Diagnoses Medullary carcinoma of thyroid, isolated Procedures CT Chest w IV Contrast Vini Lord MD [address] [address] Phone: tel: fax: Referral ID Status Reason Start Date Expiration Date Visits Re quested Visits Authorized [id number] Closed 07/08/2024 01/07/2026 1 1 * Imaging (Routine) - Closed Specialty Diagnoses / Procedures Referred By Contac t Referred To Contact Radiology Diagnoses Medullary carcinoma of thyroid, isolated Procedures CT Abdomen Pelvis w IV Contrast Vini Lord MD [address] Katarina Zarate [address] [address] Phone: tel: fax: Referral ID Status Reason Start Date Expiration Date Visits Re quested Visits Authorized [id number] Closed 07/08/2024 01/07/2026 1 1 * Imaging (Routine) - Closed Specialty Diagnoses / Procedures Referred By Contac t Referred To Contact Radiology Diagnoses Medullary carcinoma of thyroid, isolated Procedures CT Soft Tissue Neck w IV Contrast Vini Lord MD [address] Katarina Zarate [address] [address] Phone: tel: fax: Referral ID Status Reason Start Date Expiration Date Visits Re quested Visits Authorized [id number] Closed 07/08/2024 01/07/2026 1 1 Reason for Visit * Imaging (Routine) - Closed Specialty Diagnoses / Procedures Referred By Contac t Referred To Contact Radiology Diagnoses Medullary carcinoma of thyroid, isolated Procedures CT Chest w IV Contrast Vini Lord MD [address] Katarina Zarate [address] [address] Phone: tel: fax: Referral ID Status Reason Start Date Expiration Date Visits Re quested Visits Authorized [id number] Closed 07/08/2024 01/07/2026 1 1 Encounter Details Date Type Department Care Team (Latest Contact Info) Description 11/02/2024 10:21 AM EDT - 11/02/2024 11:59 PM EDT Hospital Encounter [facility] [address] [place] [address] Medullary carcinoma of thyroid, isolated Discharge Disposition: [...] Start Date 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 90 tablet 1 5 documented as of this encounter Miscellaneous Notes [...] [facility] [address] [facility] [place] [address] 11/17/2024 11:00 AM EDT Office Visit [facility] [address] [facility] [place] [address] Dominguez Duffy MD [address] [facility] [address] [place] [id number] 11/17/2024 1:00 PM EDT Office Visit [facility] [address] [facility] [place] [phone] Kassi Ronquillo, KARINA [address] [place] [address] 12/15/2024 11:00 AM EDT Appointment Medical Office Building Cardiac Diagnostic Testing Medical Office Building Echo [facility] [address] [facility] [place] [address] 12/15/2024 12:30 PM EDT Office Visit [facility] [place] [address] [facility], [address] [place] [address] Ankita Vásquez PA [address] [place] [address] 01/28/2025 11:20 AM EDT Office Visit [facility] [address] [facility], [address] [place] [address] Amanda Adams MD [address] [place] [address] 03/08/2025 1:30 PM EST Appointment [facility] [address] [place] [address] 03/08/2025 3:50 PM EST Office Visit [facility] [address] [place] [address] Vini Lord MD [address] [facility] [address] Z[address] [place] [address] 11/02/2025 9:30 AM EDT Appointment Medical Office Building Cardiac Diagnostic Testing Medical Office Building [facility] [address] [facility] [place] [address] 11/02/2025 11:00 AM EDT Office Visit [facility] [place] [address] [facility] [place] [address] Ankita Vásquez PA [address] [place] [address] documented as of this encounter [...] Total DLP (Dose-Length Product): 1143.45 mGy.cm (accession [id number]), 1143.45 mGy.cm (accession [id number]). Please note: The reported value represents the [...] Total DLP (Dose-Length Product): 1143.45 mGy.cm (accession [id number]),1143.45 mGy.cm (accession [id number]). Please note: The reported valuerepresents the total [...] Total DLP (Dose-Length Product): 1143.45 mGy.cm (accession [id number]), 1143.45 mGy.cm (accession [id number]). Please note: The reported value represents the [...] Total DLP (Dose-Length Product): 1143.45 mGy.cm (accession [id number]),1143.45 mGy.cm (accession [id number]). Please note: The reported valuerepresents the total [...] error, please notify the sender immediately at [phone] and permanently delete the original report and destroy any copies or printouts. 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, pN1b, cM1) (liver, mediastinal LN) [facility] Tech Notes (entered by technologist): iohexol (OMNIPaque) [...] Procedure Note Oli Gruber MD - 11/02/2024 [facility] - Phone Outpatient NAME: Lin Guerrier DATE OF EXAM: 11/02/2024 Patient No: [id number] Physician: Michael Date of : 1940 Past Medical/Surgical History (entered by technologist): Symptoms/Reason For Exam (entered by technologist): nonfunctional [id number] sporadic REJI mutated (exon 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) Stage [...] in error, pleasenotify the sender immediately at [phone] and permanently delete theoriginal report and destroy [...] Once in imaging, 1 dose, Starting on Fri11/02/24 at 1027, Until Fri11/02/24 at 1120, Routine, Imaging Protocol Orders Given 11/02/2024 11:20 AM EDT 100 mL iohexol (OMNIPaque) 9 MG/ML oral contrast 500 mL 500 mL, Oral, Once in imaging, 1 dose, Starting on Fri11/02/24 at 1027, Until Fri11/02/24 at 1120, Routine, Imaging Protocol Orders Given [...] documented as of this encounter Care Teams Pickling Operator Relationship Specialty Start Date End Date Onur Guerrero MD PCP - General Family Medicine 01/22/22 documented as of this encounter
--- OUTSIDE RECORDS SUMMARY | 2024-11-02 14:50 | XMS_ITS | Encounter Summary ---
Author Organization Healthcare Address [address] 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 Primary Care Provider: Onru Guerrero MD Assessment/Plan A: Clinically & anatomically [...] Guerrier is a 84 y.o. 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 Ms. Guerrier's comorbidities include [...] charged on 08/13/21, and then re-admitted to [facility] from 08/14/21 until 08/17/21 with chestpain, hyponatremia [...] file Housing Stability: Unknown (02/03/2023) Received from [facility] Housing Stability Current Living Arrangements: Not on [...] Intimate Partner Violence: Unknown (02/03/2023) Received from [facility] Abuse Screen Unsafe at Home or Work/School: Not on file Feels Threatened by Someone?: Not on file Does Anyone Keep You from Contacting Others or Doint Things Outside the Home?: Not on file Physical Sign of Abuse Present: Not on file Physical Activity: Not on file Social Connections: Unknown (02/03/2023) Received from [facility] Family and Community Support Help with Day-to-Day [...] Total DLP (Dose-Length Product): 1542.49 mGy.cm (accession [id number]), 1542.49 mGy.cm (accession [id number]). Please note: The reported value represents the [...] Guerrier DATE OF EXAM: 07/06/2024 Patient No: [id number] Physician: Pop^Vini Date of : 1940 Examination: [...] ED visit for hypertension. QTc on EKG [id number] ms baseline elevated. Will reduce dose to [...] error, please notify the sender immediately at [phone] and permanently delete theoriginal report and destroy any copies or printouts. Result History CT Soft Tissue Neck w IV Contrast (Order #[id number]) on 07/06/2024 - Order Result History Report Related Results CT Chest w IV Contrast Final result 07/06/2024 10:56 AM CLINICAL INDICATION: Metastatic disease evaluation, history of thyroid medullary carcinoma TECHNIQUE: Multiple CT helical images were obtained from thoracic inlet through pubic symphysis with administration of IV contrast. 100 mL mL of Omnipaque-300 were administered intravenously. Total DLP (Dose-Length Product): 1542.49 mGy.cm (accession [id number]), 1542.49 mGy.cm (accession [id number]). Please note: The reported value represents the [...] unintended errors. - I spent 40 minutes iokq-hf-lqkk with the patient and fme-shwb-qy-face time, over half in discussion of the diagnosis and the importance of compliance with the treatment plan. Patient seen and examined with attending physician, Dr. Lord, who helped formulate the plan as above. Ventura Moeller MD PGY4 hematology/oncology fellow [facility] Cosigned by Vini Lord MD at 11/03/2024 [...] [facility] Respiratory [address] [facility], [address]nd [place] [address] 11/17/2024 11:00 AM EDT Office Visit [facility] [address] [facility], [address]nd [place] [address] Dominguez Duffy MD [address] [place] [address] 11/17/2024 1:00 PM EDT Office Visit [facility] [address] [facility], [address]nd [place] [address] Kassi Ronquillo, GENERAL INTERNIST AND PHYSICIAN LEADER [address] [place] [address] 12/15/2024 11:00 AM EDT Appointment Medical Office Building Cardiac Diagnostic Testing Medical Office Building Echo Lab [address], [address] [place] [address] 12/15/2024 12:30 PM EDT Office Visit [facility] [address], [address] [place] [address] Ankita Vásquez PA [address] [place] [address] 01/28/2025 11:20 AM EDT Office Visit [facility] Nephrology, Bone & Mineral Metabolism [address], [address] [place] [address] Amanda Adams MD [address] [facility] [address] [place] [address] 03/08/2025 1:30 PM EST Appointment [facility] [address] [place] [address] 03/08/2025 3:50 PM EST Office Visit [facility] [address] [place] [address] Vini Lord MD [address] [facility] [address] [place] [address] 11/02/2025 9:30 AM EDT Appointment Medical Office Building Cardiac Diagnostic Testing Medical Office Building Echo Lab [address] [facility] [address] [facility] [address] [place] [address] 11/02/2025 11:00 AM EDT Office Visit [facility] [place] [address] [facility] [address] [place] [address] Ankita Vásquez PA [address] [place] [address] documented as of this encounter [...] documented as of this encounter Care Teams Financial Services Consultant Relationship Specialty Start Date End Date Onur Guerrero MD PCP - General Family Medicine 01/22/22 documented as of this encounter
[2024-11-10 15:48] LABS: Microscopic, Urine URINE MICROSCOPIC (MICROSCOPIC)
[2024-11-10 16:15] LABS: Hematocrit 38.1 % (37.0-47.0); Hemoglobin 11.9 g/dL (12.2-16.2); Immature Granulocytes % 0.3 %; Mean Corpuscular HGB Conc 31.2 g/dL (31.8-35.4); Mean Corpuscular Hemoglobin 26.7 pg (27.0-31.2); Mean Corpuscular Volume 85.4 fl (81-99); Nucleated Red Blood Cells % 0 %; Platelet Count 315 K/mm3 (142-424); Red Blood Count 4.46 M/mm3 (4.20-5.40); Red Cell Distribution Width-SD 54.4 fL; White Blood Count 6.7 K/mm3 (4.8-10.8)
[2024-11-10 16:54] LABS: Albumin Level 4.4 g/dl (3.5-5.0); Anion Gap 19.2 mEq/L (5-15); Blood Urea Nitrogen 19 mg/dl (7-17); Calcium 9.5 mg/dl (8.4-10.2); Carbon Dioxide 23 mmol/L (22.0-30.0); Chloride 97 mmol/L (98-107); Creatinine,Serum 1.20 mg/dl (0.52-1.04); Estimated Glomerular Filt Rate 43 ml/min (>60); GFR (African American) 52 ML/MIN (>60); Glucose 109 mg/dl (74-100); Phosphorous 5.1 mg/dl (2.5-4.5); Potassium 4.2 mmoL/L (3.5-5.1); Sodium 135 mmol/L (136-145)
[2024-11-10 18:31] LABS: Bilirubin,Urine Negative (Negative); Color,Urine YELLOW (Yellow); Glucose,Urine (UA) Negative (Negative); Ketones,Urine Negative (Negative); Leukocyte Esterase,Urine 2+ (Negative); PH,Urine 7.0 (5.0-8.5); Protein,Urine 1+ (Negative); Specific Gravity, Urine 1.015 (1.005-1.030); Urobilinogen,Urine 0.2 EU/dl (0.2)
[2024-11-10 19:40] LABS: WBC,Urine TNTC #/hpf (0-3)
[2024-11-10 19:41] LABS: Bacteria,Urine 4+ /lpf
--- OUTSIDE RECORDS SUMMARY | 2024-11-11 10:03 | XMS_ITS | Encounter Summary ---
Author Organization Healthcare Address [address] [id number] Care Team Providers Care Health Care / Medical Job Titles Name Role Phone LassiterSarina Bhavana COLLINS Primary Care Provider [phone] Onur Guerrero MD Primary Care Provider Dyana vailable Encounter Details Date Type Department Care Team (Late st Contact Info) Description 09/10/2021 Lab Requisition [facility] [address] [place] [address] Onur Shipman MD [address] [address] Malignant neoplasm of thyroid gland (CMS/HCC) Social History Tobacco Use Types Packs/Day Years Used Date Smoking Tobacco: Never Smokeless Tobacco: Never Alcohol Use Standard Drinks/Week Comments Never 0 (1 standard drink = 0.6 oz pur e alcohol) PHQ-2 Answer Date Recorded Patient Health Questionnaire-2 Score 0 07/13/2021 Education Answer Date Recorded What is the highest level of school you have completed or the highest degree you have received? 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 No / Unsure 09/05/2021 12:29 PM EDT documented as of this encounter Plan of Treatment Upcoming Encounters Date Type Department Care Team (Late st Contact Info) Description 11/17/2024 10:30 AM EDT Clinical Support [facility] Res[facility] [address] [facility], [address]nd [place] [address] 11/17/2024 11:00 AM EDT Office Visit [facility] [address] [facility], [address]nd [place] [address] Dominguez Duffy MD [address] [facility] [address] [place] [address] 11/17/2024 1:00 PM EDT Office Visit [facility] Res[facility] [address] [facility], [address] [place] [address] Kassi Ronquillo, FIREFIGHTER [address] [place] [address] 12/15/2024 11:00 AM EDT Appointment Medical Office Building Cardiac Diagnostic Testing Medical Office Building Echo Lab [address] [facility] [address], [address] [place] [address] 12/15/2024 12:30 PM EDT Office Visit [facility] [place] [address] [facility] [address], [address] [place] [address] Ankita Vásquez PA [address] [place] [address] 01/28/2025 11:20 AM EDT Office Visit [facility] [place] Nephrology, Bone & Mineral Metabolism [address] [facility] [address], [address] [place] [address] Amanda Adams MD [address] [facility] [address] [place] [address] 03/08/2025 1:30 PM EST Appointment [facility] Rad[facility] [address] [place] [address] 03/08/2025 3:50 PM EST Office Visit [facility] [address] [place] [address] Vini Lord MD [address] [facility] [address] [place] [address] 11/02/2025 9:30 AM EDT Appointment Medical Office Building Cardiac Diagnostic Testing Medical Office Building Echo Lab [address] [facility], [address] [place] [address] 11/02/2025 11:00 AM EDT Office Visit [facility] [place] [address] [facility], [address] [place] [address] Ankita Vásquez PA [address] [place] [address] documented as of this encounter Procedures Procedure Name Priority Date/Time Associated Diagnosis Comments AP MISCELLANEOUS LAB TEST (SO) Routine 09/10/2021 12:00 AM EDT Malignant neoplasm of thyroid gland (CMS/HCC) documented in this encounter Results * - Miscellaneous Test (09/10/2021 12:00 AM EDT) Test name AK Profile-Ca ris 09/28/2021 9:31 AM EDT [facility]ALTH[facility] Comment:[id number] [id number] Test Result see scan 09/28/2021 9:31 AM EDT [facility] See Scanned Result 09/28/2021 9:[address] [facility] Tissue 09/10/2021 09/10/2021 2:5 4 PM EDT us Onur Shipman MD LAB REF LAB BLOOD AND FLUID ORD Final Result [facility] [address] [place] [address] documented in this encounter Visit Diagnoses Diagnosis Malignant neoplasm of thyroid gland (CMS/HCC) Malignant neoplasm of thyroid gland documented in this encounter Additional Health Concerns Assessment Noted Time A fall risk assessment has been complete d for the patient 08/21/2021 12:36 PM EDT documented as of this encounter Care Teams Health Care / Medical Job Titles Relationship Specialty Start Date End Date Sarina Lassiter APRN [address] [place] [address] [phone] PCP - General 09/08/20 01/21/22 Onur Guerrero MD [address] [place] [id number] PCP - General Family Medicine 01/22/22 documented as of this encounter
--- OUTSIDE RECORDS SUMMARY | 2024-11-11 10:03 | XMS_ITS | Encounter Summary ---
Author Organization Healthcare Address [address] [place] [address] Care Team Providers Care Commodities Requirements Analyst Name Role Phone Sarina Lassiter Bhavana COLLINS Primary Care Provider [phone]- [phone] Onur Guerrero MD Primary Care Provider Ydana vailable Laury Jerez COTTON SAMPLER Unavailable Unavailable Encounter Details Date Type Department Care Team ([facility] Contact Info) Description 05/23/2021 Lab Requisition [facility] [address] [place] [address] Romelia Monroe MD [address] [place] [address] Nontoxic single thyroid nodule Social History Tobacco Use Types Packs/Day Years Used Date Smoking Tobacco: Never Smokeless Tobacco: Never Alcohol Use Standard Drinks/Week Comments Never 0 (1 standard drink = 0.6 oz pur e alcohol) PHQ-2 Answer Date Recorded Patient Health Questionnaire-2 Score 0 05/21/2021 Comments Unknown Sex and Gender Information Value Date Recorded Sex Assigned at Not on file Legal Sex Female 7:59 PM EDT Gender Identity Not on file Sexual Orientation Not on file COVID-19 Exposure Response Date Recorded In the last month, have you been in contact with someone who was confirmed or suspected to have Coronavirus / COVID-19? No / Unsure 05/21/2021 1:22 PM EST documented as of this encounter Plan of Treatment Upcoming Encounters Date Type Department Care Team ([facility] Contact Info) Description 11/17/2024 10:30 AM EDT Clinical Support [facility] [address] [facility], [address]nd [place] [phone] 11/17/2024 11:00 AM EDT Office Visit [facility] [address] [facility], [address]nd [place] [address] Dominguez Duffy MD [address] [facility] [address] [place] [phone] 11/17/2024 1:00 PM EDT Office Visit [facility] [address] [facility], 2nd [place] [address] Kassi Ronquillo, BOBBIN MARKER [address] [place] [address] 12/15/2024 11:00 AM EDT Appointment Medical Office Building Cardiac Diagnostic Testing Medical Office Building Echo Lab [address] [facility], [address] [place] [phone] 12/15/2024 12:30 PM EDT Office Visit [facility] [place] [address] [facility], [address] [place] [phone] Ankita Vásquez, PA [address] [place] [address] 01/28/2025 11:20 AM EDT Office Visit [facility] Nephrology, Bone & Mineral Metabolism [address] [facility], [address] [place] [address] Amanda Adams MD [address] [facility] [address] [place] [phone] 03/08/2025 1:30 PM EST Appointment [facility] Radiology [address] [place] [address] 03/08/2025 3:50 PM EST Office Visit [facility] [address] [place] [address] Vini Lord MD [address] [facility] Katarina Zarate [facility] [address] [place] [address] 11/02/2025 9:30 AM EDT Appointment Medical Office Building Cardiac Diagnostic Testing Medical Office Building Echo Lab [address] [facility], [address] [place] [address] 11/02/2025 11:00 AM EDT Office Visit [facility] [address] [facility], [address] [place] [address] Ankita Vásquez PA [address] [place] [address] documented as of this encounter Procedures Procedure Name Priority Date/Time Associated Diagnosis Comments CYTOLOGY CONSULT Routine 05/23/2021 10:3 6 AM EST Nontoxic single thyroid nodule documented in this encounter Results * Cytology Consult (05/23/2021 10:36 AM EST) Case Report Cytology Case: [id number] Authorizing Provider: Romelia Monroe MD Collected: 05/23/2021 1036 Ordering Location: [facility] Lab Received: 05/23/2021 1036 Pathologist: Jj Carrillo MD Specimen: Thyroid, [id number] 05/24/2021 2:49 PM EST [facility] Final Diagnosis OUTSIDE CASE [id number]; COLLECTED 05/02/21 MIDLINE STERNAL NOTCH, FINE NEEDLE ASPIRATION: - MEDULLARY THYROID CARCINOMA, SEE COMMENT. RIGHT NECK, LYMPH NODE, FINE NEEDLE ASPIRATION: - MEDULLARY THYROID CARCINOMA, SEE COMMENT. 05/24/2021 2:49 PM EST [facility] at 1449 EST Comment The patient's histor y of medullary thyroid carcinoma with right neck lymph node metastasis, status post thyroidectomy in 2017 ([id number]) and lymphadenectomy in 2019 is noted ([id number]). Cell concentrates from both the midline sternal notch and right neck specimens show similar morphologic features of medullary thyroid carcinoma. Immunohistochemical stains performed at the outside institution on cell block material from the sternal notch support the diagnosis, as the malignant cells are positive for synaptophysin and CEA. Flow cytometry was also performed at the outside institution and showed no evidence of non-Hodgkin lymphoma in the few lymphocytes present. 05/24/2021 2:49 PM EST [facility] Clinical Information E04.1 - Nontoxic single thyroid nodule [ICD-10-CM] 05/24/2021 2:49 PM EST [facility] Gross Description A. CF22-40 For clinical data and diagnosis (A. Malignant B. Malignant) for this specimen (CF22-40/A. Sternal Notch, FNA B. Right Neck Lymph Node, FNA) see final report issued by [facility] Pathology Department. 05/24/2021 2:49 PM EST [facility] Note: A resident was involved in the service. I attest I examined the relevant preparations for the specimens and confirmed the diagnosis or interpretation. 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 documented in this encounter Additional Health Concerns Infection Onset Date Last Indicated Resolved Time COVID-19 Rule-Out 08/14/2021 08/14/2021 08/14/2021 3:07 PM EDT Assessment Noted Time A fall risk assessment has been complete d for the patient 05/21/2021 1:47 PM EST documented as of this encounter Care Teams Commodities Requirements Analyst Relationship Specialty Start Date End Date Sarina Lassiter, KARINA [address] [place] [address] PCP - General 09/08/20 01/21/22 Onur Guerrero MD [address] [place] [id number] PCP - General Family Medicine 01/22/22 Laury Jerez, [place] [address] Java Lead Architect Entry Processor 08/14/21 08/14/21 documented as of this encounter
--- OUTSIDE RECORDS SUMMARY | 2024-11-11 10:03 | XMS_ITS | Encounter Summary ---
Author Organization Healthcare Address [address] 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 Not on fi [...] Noelle Granados Patient Health Questionnaire-2 Score 0 07/0 11/2024 2:01 PM EDT Noelle Granados * [...] Noelle Granados documented as of this encounter Plan of Treatment Upcoming Encounters Date Type Department Care Team (Late st Contact Info) Description 11/17/2024 10:30 AM EDT Clinical Support [facility] [address] [address] 11/17/2024 11:00 AM EDT Office Visit [facility] [address] [address] Dominguez Duffy MD [address] [place] [address] 11/17/2024 1:00 PM EDT Office Visit [facility] [address] [facility], [address]nd [place] [address] Kassi Ronquillo, FINGERNAIL SCULPTURER [address] [place] [address] 12/15/2024 11:00 AM EDT Appointment Medical Office Building Cardiac Diagnostic Testing Medical Office Building Echo Lab [address] [facility], [address] [place] [address] 12/15/2024 12:30 PM EDT Office Visit [facility] [address] [facility], [address] [place] [address] Ankita Vásquez, PA [address] [place] [address] 01/28/2025 11:20 AM EDT Office Visit [facility] Nephrology, Bone & Mineral Metabolism [address] [facility], [address] [place] [address] Amanda Adams MD [address] [facility] [address] [place] [address] 03/08/2025 1:30 PM EST Appointment [facility] Radiology [address] [place] [phone] 03/08/2025 3:50 PM EST Office Visit [facility] [address] [place] [address] Vini Lord MD [address] [facility] Katarina [address] [place] [address] 11/02/2025 9:30 AM EDT Appointment Medical Office Building Cardiac Diagnostic Testing Medical Office Building Echo Lab [address] [facility], [address] [place] [address] 11/02/2025 11:00 AM EDT Office Visit [facility] [address] [facility], [address] [place] [address] Ankita Vásquez PA [address] [place] [address] documented as of this encounter Visit Diagnoses Not on filedocumented in this encounter Additional Health Concerns Assessment Noted Time PHQ-9 Depression Total Score: 0 11/03/19 25 2:01 PM EDT A fall risk assessment has been complete d for the patient 11/02/2024 2:02 PM EDT A Body Mass Index follow-up plan has been documented for the patient 11/01/2024 12:19 PM EDT documented as of this encounter Care Teams Cotton Ginner Helper Relationship Specialty Start Date End Date Onur Guerrero MD PCP - General Family Medicine 01/22/22 documented as of this encounter
--- OUTSIDE RECORDS SUMMARY | 2024-11-11 10:03 | XMS_ITS | Encounter Summary ---
Author Organization Healthcare Address [address] [place] [address] Care Team Providers Care Land Manager Name Role Phone MaikolDemetriodeepa Bateman APRN Primary Care Provider [phone]- [phone] Onur Guerrero MD Primary Care Provider Dyana vailable Laury Jerez HARD ROCK MINER Unavailable Unavailable Encounter Details Date Type Department Care Team (Late Contact Info) Description 05/03/2021 Orders Only External Location [address] [place] [address] Provider, External Social History Tobacco Use Types Packs/Day Years Used Date Smoking Tobacco: Never Assessed Comments Unknown Sex and Gender Information Value Date Recorded Sex Assigned at Not on file Legal Sex Female 7:59 PM EDT Gender Identity Not on file Sexual Orientation Not on file documented as of this encounter Plan of Treatment Upcoming Encounters Date Type Department Care Team (Late Contact Info) Description 11/17/2024 10:30 AM EDT Clinical Support [facility] [address] [address] 11/17/2024 11:00 AM EDT Office Visit [facility] [address] [address] Dominguez Duffy MD [facility] [address] [phone] 11/17/2024 1:00 PM EDT Office Visit [facility] [address] [address] Kassi Ronquillo, ROLL BUCKER [address] [place] [address] 12/15/2024 11:00 AM EDT Appointment Medical Office Building Cardiac Diagnostic Testing Medical Office Building Echo Lab [address] [facility], [address] [place] [phone] 12/15/2024 12:30 PM EDT Office Visit [facility] [address] [facility], [address] [place] [address] Ankita Vásquez PA [address] [place] [address] 01/28/2025 11:20 AM EDT Office Visit [facility] Nephrology, Bone & Mineral Metabolism [address] [facility], [address] [place] [address] Amanda Adams MD [address] [facility] [address] [place] [address] 03/08/2025 1:30 PM EST Appointment [facility] Radiology [address] [place] [address] 03/08/2025 3:50 PM EST Office Visit [facility] [address] [place] [phone] Vini Lord MD [address] [facility] [address] [place] [address] 11/02/2025 9:30 AM EDT Appointment Medical Office Building Cardiac Diagnostic Testing Medical Office Building Echo Lab [address] [facility], [address] [place] [address] 11/02/2025 11:00 AM EDT Office Visit [facility] [address] [facility], [address] [place] [address] Ankita Vásquez PA [address] [place] [address] documented as of this encounter Procedures Procedure Name Priority Date/Time Associated Diagnosis Comments CT MSK OUTSIDE IMAGES 05/03/2021 11:52 AM EST documented in this encounter Results * CT MSK OUTSIDE IMAGES (05/03/2021 11:52 AM EST) Anatomical Region Laterality Modality Computed Tomogra phy 05/03/2021 11:5 2 AM EST us External Provider IMG CT PROCEDURES Final Result documented in this encounter Visit Diagnoses Not on filedocumented in this encounter Additional Health Concerns Infection Onset Date Last Indicated Resolved Time COVID-19 Rule-Out 08/14/2021 08/14/2021 08/14/2021 3:07 PM EDT documented as of this encounter Care Teams Land Manager Relationship Specialty Start Date End Date Sarina Lassiter APRN [address] [place] [address] PCP - General 09/08/20 01/21/22 Onur Guerrero MD [address] [place] [id number] PCP - General Family Medicine 01/22/22 Laury Jerez, [place] [address] Bullet Swaging Machine Adjuster Wellness Educator 08/14/21 08/14/21 documented as of this encounter
--- OUTSIDE RECORDS SUMMARY | 2024-11-11 10:03 | XMS_ITS | Encounter Summary ---
Author Organization Healthcare Address 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 [address] [place] [phone] 11/17/2024 1:00 PM EDT Office Visit [facility] [address] [facility], [address]nd [place] [address] Kassi Ronquillo, USER EXPERIENCE MANAGER [address] [place] [address] 12/15/2024 11:00 AM EDT Appointment Medical Office Building Cardiac Diagnostic Testing Medical Office Building Echo Lab [address] [facility], [address] [place] [address] 12/15/2024 12:30 PM EDT Office Visit [facility] [place] [address] [facility], [address] [place] [phone] Ankita Vásquez, PA [address] [place] [address] 01/28/2025 11:20 AM EDT Office Visit [facility] [place] [facility] Bone [facility] Mineral Metabolism [address] [facility], [address] [place] [address] Amanda Adams MD [address] [facility] [address] [place] [address] 03/08/2025 1:30 PM EST Appointment P[facility] G Radiology [address] [place] [address] 03/08/2025 3:50 PM EST Office Visit [facility] [address] [place] [address] Vini Lord MD [address] [facility] [address] Z[address] [place] [address] 11/02/2025 9:30 AM EDT Appointment Medical Office Building Cardiac Diagnostic Testing Medical Office Building Echo Lab [address] [facility], [address] [place] [address] 11/02/2025 11:00 AM EDT Office Visit [facility] [place] [address] [facility], [address] [place] [address] Ankita Vásquez PA [address] [place] [address] Scheduled Orders Name Type Priority Associated Diagnoses Orde r Schedule ECG Adult (Future Visit - Performed in your clinic) ECG Routine 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) Expected: 11/02/2024, Expires: 04/30/2026 documented as of this encounter Results * (ABNORMAL) Magnesium (11/02/2024 1:57 PM EDT) Pathologist [facility] Magnesium, Plasma 1.8(L) 1.9 - 2.4 mg/dL 11/02/2024 3:51 PM EDT [facility] Blood Venous blood specimen / Unknown Venipuncture / Unknown 11/02/2024 1:57 PM EDT 11/02/2024 2:48 PM EDT us Vini Lord MD LAB BLOOD ORDERABLES Final R esult [facility] [address] [place] [address] * TSH (11/02/2024 1:57 PM EDT) Thyroid Stimulating Hormone, Plasma 3.18 0.40 - 4.20 uIU/mL 11/02/2024 3:51 PM EDT [facility] Blood Venous blood specimen / Unknown Venipuncture / Unknown 11/02/2024 1:57 PM EDT 11/02/2024 2:48 PM EDT us Vini Lord MD LAB BLOOD ORDERABLES Final R esult [facility] [address] [place] [address] * (ABNORMAL) Comprehensive metabolic panel (11/02/2024 1:57 PM EDT) Glucose, Plasma 143(H) 74 - 99 mg/dL 11/02/2024 3:51 PM EDT [facility] BUN, Plasma 16 8 - 23 mg/dL 11/02/2024 3:51 PM EDT [facility] Creatinine, Plasma 0.93 0.60 - 1.10 mg/dL 11/02/2024 3:51 PM EDT [facility] BUN/Creatinine Ratio 17 11/02/2024 3:51 PM EDT [facility] Sodium, Plasma 131(L) 136 - 145 mmol/L 11/02/2024 3:51 PM EDT [facility] Potassium, Plasma 3.8 3.6 - 4.9 mmol/L 11/02/2024 3:51 PM EDT [facility] Chloride, Plasma 93(L) 97 - 107 mmol/L 11/02/2024 3:51 PM EDT [facility] CO2, Plasma 19(L) 22 - 29 mmol/L 11/02/2024 3:51 PM EDT [facility] Anion Gap 19(H) 6 - 16 mmol/L 11/02/2024 3:51 PM EDT [facility] Total Calcium, Plasma 9.0 8.9 - 10.2 mg/dL 11/02/2024 3:51 PM EDT [facility] Total Protein 7.2 6.3 - 7.9 g/dL 11/02/2024 3:51 PM EDT [facility] Albumin, Plasma 4.0 3.5 - 5.2 g/dL 11/02/2024 3:51 PM EDT [facility] AST, Plasma 23 10 - 35 U/L 11/02/2024 3:51 PM EDT [facility] Comment:Hemolyzed, result ma y be falsely increased. ALT, Plasma 19 10 - 35 U/L 11/02/2024 3:51 PM EDT [facility] Alkaline Phosphatase, Plasma 73 46 - 142 U/L 11/02/2024 3:51 PM EDT [facility] Total Bilirubin, Plasma 0.5 0.2 - 1.1 mg/dL 11/02/2024 3:51 PM EDT [facility] eGFRcr 61.5 mL/min/1.7 3m*2 11/02/2024 3:51 PM EDT [facility] Comment:Reported eGFRcr in m L/min/1.73m2 is based the CKD-EPI 2020 equation that does not use a race coefficient. Blood Venous blood specimen / Unknown Venipuncture / Unknown 11/02/2024 1:57 PM EDT 11/02/2024 2:48 PM EDT us Vini Lord MD LAB BLOOD ORDERABLES Final R esult [facility] [address] [place] [address] * (ABNORMAL) CBC and differential (11/02/2024 1:57 PM EDT) WBC Count 9.12 3.70 - 10.30 10*3/uL LAB HEMATOLOGY METHOD 11/02/2024 3:00 PM EDT [facility] RBC Count 4.53 3.90 - 5.20 10*6/uL LAB HEMATOLOGY METHOD 11/02/2024 3:00 PM EDT [facility] HGB 12.1 11.2 - 15.7 g/dL LAB HEMATOLOGY METHOD 11/02/2024 3:00 PM EDT [facility] HCT 37.4 34.0 - 45.0 % LAB HEMATOLOGY METHOD 11/02/2024 3:00 PM EDT [facility] Platelet Count 192 155 - 369 10*3/uL LAB HEMATOLOGY METHOD 11/02/2024 3:00 PM EDT [facility] MCV 83 79 - 98 fL LAB HEMATOLOGY METHOD 11/02/2024 3:00 PM EDT [facility] Comment:Not Measured. MCH 26.7 26.0 - 32.0 pg LAB HEMATOLOGY METHOD 11/02/2024 3:00 PM EDT [facility] Comment:Not Measured MCHC 32.4 30.7 - 35.5 g/dL LAB HEMATOLOGY METHOD 11/02/2024 3:00 PM EDT [facility] Comment:Not Measured RDW 17.0(H) 11.5 - 14.5 % LAB HEMATOLOGY METHOD 11/02/2024 3:00 PM EDT [facility] Comment:Not Measured. MPV LAB HEMATOLOGY METHOD 11/02/2024 3:00 PM EDT [facility] Comment:Not Measured nRBC 0.0 <=0.0 per 100 WBCs LAB HEMATOLOGY METHOD 11/02/2024 3:00 PM EDT [facility] Differential Type Automated LAB HEMATOLOGY METHOD 11/02/2024 3:00 PM EDT [facility] Neutrophils % 76 % LAB HEMATOLOGY METHOD 11/02/2024 3:00 PM EDT [facility] Lymphocytes % 16 % LAB HEMATOLOGY METHOD 11/02/2024 3:00 PM EDT [facility] Monocytes % 5 % LAB HEMATOLOGY METHOD 11/02/2024 3:00 PM EDT [facility] Eosinophils % 1 % LAB HEMATOLOGY METHOD 11/02/2024 3:00 PM EDT [facility] Basophils % 1 % LAB HEMATOLOGY METHOD 11/02/2024 3:00 PM EDT [facility] Immature Granulocytes % 1 % LAB HEMATOLOGY METHOD 11/02/2024 3:00 PM EDT [facility] Neutrophils Absolute 7.01(H) 1.60 - 6.10 10*3/uL LAB HEMATOLOGY METHOD 11/02/2024 3:00 PM EDT [facility] Lymphocytes Absolute 1.47 1.20 - 3.90 10*3/uL LAB HEMATOLOGY METHOD 11/02/2024 3:00 PM EDT [facility] Monocytes Absolute 0.46 0.30 - 0.90 10*3/uL LAB HEMATOLOGY METHOD 11/02/2024 3:00 PM EDT [facility] Eosinophils Absolute 0.07 0.00 - 0.50 10*3/uL LAB HEMATOLOGY METHOD 11/02/2024 3:00 PM EDT [facility] Basophils Absolute 0.05 0.00 - 0.10 10*3/uL LAB HEMATOLOGY METHOD 11/02/2024 3:00 PM EDT [facility] Immature Granulocytes Absolute 0.06 0.00 - 0.06 10*3/uL LAB HEMATOLOGY METHOD 11/02/2024 3:00 PM EDT [facility] Blood Venous blood specimen / Unknown Venipuncture / Unknown 11/02/2024 1:57 PM EDT 11/02/2024 2:19 PM EDT Narrative [facility] - 11/02/2024 3:00 PM EDT Therapeutic decision making should be based on absolute values, rather than percentages. Vini Lord MD LAB BLOOD ORDERABLES Final R esult Performing Organization Address City/[facility]/ZIP Co de Phone Number [facility] [address] [place] [address] * (ABNORMAL) CEA (11/02/2024 1:57 PM EDT) CEA, Serum 8.3(H) <4.0 ng/mL 11/02/2024 3:26 PM EDT [facility] Blood Venous blood specimen / Unknown Venipuncture / Unknown 11/02/2024 1:57 PM EDT 11/02/2024 2:49 PM EDT Narrative [facility] - 11/02/2024 3:26 PM EDT Normal range for smokers: < 5.5 ng/ml Normal range for non-smokers: <=4.0 ng/ml Performed by Home electrochemiluminescent immunoassay. Results obtained with different test methods or kits cannot be used interchangeably. Vini Lord MD LAB BLOOD ORDERABLES Final R esult [facility] [address] [place] [address] * (ABNORMAL) Calcitonin (11/02/2024 1:57 PM EDT) Calcitonin 638.0(H) 0.0 - 5.1 pg/mL 11/04/2024 4:37 PM EDT [facility]) Blood Venous blood specimen / Unknown Venipuncture / Unknown 11/02/2024 1:57 PM EDT 11/02/2024 2:48 PM EDT Narrative [facility]) - 11/04/2024 4:37 PM EDT INTERPRETIVE INFORMATION: Calcitonin Calcitonin levels greater than 100 pg/mL may occur in the following conditions: medullary thyroid carcinomas (MTC), leukemias, and myeloproliferative disorders. Provocative testing (calcium) is suggested in patients with MTC if the calcitonin is not clearly diagnostic. The Siemens Immulite 2000 method is used. Results obtained with different assay methods or kits cannot be used interchangeably. Calcitonin is useful in monitoring medullary thyroid carcinoma. The calcitonin assay value, regardless of level, should not be interpreted as absolute evidence of the presence or absence of malignant disease. Performed By: [facility] [address] [place] [address] Pt Sitter: Frederick Rincon MD, PhD CLIA Number: [id number] Vini Lord MD LAB BLOOD ORDERABLES Final R esult [facility]) [address] [place] [address] documented in this encounter Visit Diagnoses Diagnosis 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)- Primary documented in this encounter Additional Health Concerns Assessment Noted Time PHQ-9 Depression Total Score: 0 08/24/19 25 10:33 AM EDT A fall risk assessment has been complete d for the patient 10/27/2024 1:30 PM EDT A Body Mass Index follow-up plan has been documented for the patient 11/01/2024 12:19 PM EDT documented as of this encounter Care Teams Dock Attendant Relationship Specialty Start Date End Date Onur Guerrero MD PCP - General Family Medicine 01/22/22 documented as of this encounter
--- OUTSIDE RECORDS SUMMARY | 2024-11-11 10:03 | XMS_ITS | Encounter Summary ---
Author Organization [facility] Address [address] [place] [address] Care Team Providers Care Size Maker Name Role Phone Onur Guerrero MD Primary Care Provider Dyana vailable Reason for Referral * Imaging (Routine) - Pending Review Specialty Diagnoses / Procedures Referred By Contac t Referred To Contact Radiology Diagnoses Medullary carcinoma of thyroid, isolated Procedures CT Soft Tissue Neck w IV Contrast Vini Lord MD [address] [address] Phone: tel: fax: Referral ID Status Reason Start Date Expiration Date V isits Requested Visits Authorized [id number] Pending Review 11/04/2024 05/06/2026 1 1 * Imaging (Routine) - Pending Review Specialty Diagnoses / Procedures Referred By Contac t Referred To Contact Radiology Diagnoses Medullary carcinoma of thyroid, isolated Procedures CT Chest w IV Contrast Vini Lord MD 800 [facility] Katarina Zarate [address] [address] Phone: tel: fax: Referral ID Status Reason Start Date Expiration Date V isits Requested Visits Authorized [id number] Pending Review 11/04/2024 05/06/2026 1 1 * Imaging (Routine) - Pending Review Specialty Diagnoses / Procedures Referred By Contac t Referred To Contact Radiology Diagnoses Medullary carcinoma of thyroid, isolated Procedures CT Abdomen Pelvis w IV Contrast Vini Lord MD 800 [facility] Katarina Zarate [address] [address] Phone: tel: fax: Referral ID Status Reason Start Date Expiration Date V isits Requested Visits Authorized [id number] Pending Review 11/04/2024 05/06/2026 1 1 Encounter Details Date Type Department Care Team ([facility] Contact Info) Description 11/04/2024 Orders Only [facility] [address] [place] [phone] Vini Lord MD [address] [facility] T[address] [address] Medullary carcinoma of thyroid, isolated (Primary Dx) Social History Tobacco Use Types [...] 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 Not on jessica e documented as of this encounter Plan of Treatment Upcoming Encounters Date Type Department Care Team (Late Contact Info) Description 11/17/2024 10:30 AM EDT Clinical Support [facility] Res[facility] [address] [facility], 2nd [place] [address] 11/17/2024 11:00 AM EDT Office Visit [facility] Res[facility] [address] [facility], [address]nd [place] [address] Dominguez Duffy MD [address] [facility] [address] [place] [address] 11/17/2024 1:00 PM EDT Office Visit [facility] Res[facility] [address] [facility], [address]nd [place] [address] Kassi Ronquillo, LAUNDRY OPERATOR [address] [place] [address] 12/15/2024 11:00 AM EDT Appointment Medical Office Building Cardiac Diagnostic Testing Medical Office Building Echo Lab [address] [facility], [address] [place] [address] 12/15/2024 12:30 PM EDT Office Visit [facility] [place] [address] [facility], [address] [place] [address] Ankita Vásquez PA [address] [place] [address] 01/28/2025 11:20 AM EDT Office Visit [facility] Nephrology, Bone & Mineral Metabolism [address] [facility], [address] [place] [address] Amanda Adams MD [address] [facility] [address] [place] [address] 03/08/2025 1:30 PM EST Appointment [facility] G Radiology [address] [place] [address] 03/08/2025 3:50 PM EST Office Visit [facility] [address] [place] [address] Vini Lord MD [address] [facility] [address] [place] [address] 11/02/2025 9:30 AM EDT Appointment Medical Office Building Cardiac Diagnostic Testing Medical Office Building Echo Lab [address] [facility], [address] [place] [address] 11/02/2025 11:00 AM EDT Office Visit [facility] [place] [address] [facility], [address] [place] [address] Ankita Vásquez PA [address] [place] [address] Scheduled Orders Name Type Priority Associated Diagnoses Orde r Schedule CT Abdomen Pelvis w IV Contrast Imaging Routine Medullary carcinoma of thyroid, isolated Expected: 03/08/2025 (Approximate), Expires: 05/08/2026 CT Chest w IV Contrast Imaging Routine Medullary carcinoma of thyroid, isolated Expected: 03/08/2025 (Approximate), Expires: 05/08/2026 CT Soft Tissue Neck w IV Contrast Imaging Routine Medullary carcinoma of thyroid, isolated Expected: 03/08/2025 (Approximate), Expires: 05/08/2026 documented as of this encounter Visit Diagnoses Diagnosis Medullary carcinoma of thyroid, isolated- Primary Malignant neoplasm of thyroid gland documented in this encounter Additional Health Concerns Assessment Noted Time PHQ-9 Depression Total Score: 0 11/03/19 25 2:01 PM EDT A fall risk assessment has been complete d for the patient 11/02/2024 2:02 PM EDT A Body Mass Index follow-up plan has been documented for the patient 11/01/2024 12:19 PM EDT documented as of this encounter Care Teams Size Maker Relationship Specialty Start Date End Date Onur Guerrero MD PCP - General Family Medicine 01/22/22 documented as of this encounter
--- OUTSIDE RECORDS SUMMARY | 2024-11-11 10:03 | XMS_ITS | Encounter Summary ---
Author Organization Healthcare Address [address] 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 Not on jessica e documented as of this encounter Plan of Treatment Upcoming Encounters Date Type Department Care Team (Late st Contact Info) Description 11/17/2024 10:30 AM EDT Clinical Support [facility] Res[facility] [address] [facility], 2nd [place] [address] 11/17/2024 11:00 AM EDT Office Visit [facility]ck [facility] Res[facility] [address] [facility], 2nd [place] [address] Dominguez Duffy MD [address] [place] [address] 11/17/2024 1:00 PM EDT Office Visit [facility] Head[facility]ck [facility] Respiratory [address] [facility], 2nd [place] [address] Kassi Ronquillo, SLEEVE SETTER [address] [place] [address] 12/15/2024 11:00 AM EDT Appointment Medical Office Building Cardiac Diagnostic Testing Medical Office Building Echo Lab [address] [facility], [address] [place] [address] 12/15/2024 12:30 PM EDT Office Visit [facility] [place] [address] [facility], [address] [place] [address] Ankita Vásquez, PA [address] [place] [address] 01/28/2025 11:20 AM EDT Office Visit [facility] Nephrology, Bone & Mineral Metabolism [address] [facility], [address] [place] [address] Amanda Adams MD [address] [facility] [address] [place] [address] 03/08/2025 1:30 PM EST Appointment [facility] G Radiology [address] [place] [address] 03/08/2025 3:50 PM EST Office Visit [facility] [address] [place] [address] Vini Lord MD 800 [facility] [address] [place] [address] 11/02/2025 9:30 AM EDT Appointment Medical Office Building Cardiac Diagnostic Testing Medical Office Building Echo Lab [address] [facility], [address] [place] [address] 11/02/2025 11:00 AM EDT Office Visit [facility] [place] [address] [facility], [address] [place] [address] Ankita Vásquez PA [address] [place] [address] documented as of this encounter Visit [...] documented as of this encounter Care Teams Egg Candler Relationship Specialty Start Date End Date Onur Guerrero MD PCP - General Family Medicine 01/22/22 documented as of this encounter
--- OUTSIDE RECORDS SUMMARY | 2024-11-11 10:03 | XMS_ITS | Encounter Summary ---
Author Organization Healthcare Address [address] 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 Suicidal Behavior (Lifetime) No 7:32 AM EDT Venkata Duong RN documented as of this encounter Plan of Treatment Upcoming Encounters Date Type Department Care Team ([facility] st Contact Info) Description 11/17/2024 10:30 AM EDT Clinical Support Pav [facility] Head[facility] Neck & Respiratory 800 [facility], 2nd [place] [address] 11/17/2024 11:00 AM EDT Office Visit [facility] Head[facility] Neck [facility] Respiratory [address] [facility], [address]nd [place] [address] Dominguez Duffy MD [facility] [facility] [address] [place] [address] 11/17/2024 1:00 PM EDT Office Visit [facility]ck [facility] Respiratory [address] [facility], [address] [place] [address] Kassi Ronquillo, [employer] [address] [place] [address] 12/15/2024 11:00 AM EDT Appointment Medical Office Building Cardiac Diagnostic Testing Medical Office Building Echo Lab [address] [facility], [address] [place] [address] 12/15/2024 12:30 PM EDT Office Visit [facility] [place] [address] [facility], [address] [place] [address] Ankita Vásquez PA [address] [place] [address] 01/28/2025 11:20 AM EDT Office Visit [facility] Nephrology, Bone & Mineral Metabolism [address] [facility], [address] [place] [address] Amanda Adams MD [address] [facility] [address] [place] [address] 03/08/2025 1:30 PM EST Appointment [facility] G Radiology [address] [place] [address] 03/08/2025 3:50 PM EST Office Visit [facility] [address] [place] [address] Vini Lord MD 800 [facility] [address] [place] [address] 11/02/2025 9:30 AM EDT Appointment Medical Office Building Cardiac Diagnostic Testing Medical Office Building Echo Lab [address] [facility], [address] [place] [address] 11/02/2025 11:00 AM EDT Office Visit [facility] [place] [address] [facility], [address] [place] [address] Ankita Vásquez PA [address] [place] [address] documented as of this encounter Visit Diagnoses [...] documented as of this encounter Care Teams Retail Sales Consultant Relationship Specialty Start Date End Date Onur Guerrero MD PCP - General Family Medicine 01/22/22 documented as of this encounter
--- OUTSIDE RECORDS SUMMARY | 2024-11-11 10:03 | XMS_ITS | Encounter Summary ---
Author Organization [facility] Address [address] [id number] Care Team Providers Care Manager Intensive Care Unit Name Role Phone Onur Guerrero MD Primary Care Provider Dyana vailable Encounter Details Date Type Department Care Team (Late Contact Info) Description 09/14/2024 Episode Changes [facility] 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 Not on file Not on jessica e documented as of this encounter Plan of Treatment Upcoming Encounters Date Type Department Care Team (Late Contact Info) Description 11/17/2024 10:30 AM EDT Clinical Support [facility] [address] [place] [address] 11/17/2024 11:00 AM EDT Office Visit [facility] [address] [facility] [place] [address] Dominguez Duffy MD [address] [facility] [address] [place] [id number] 11/17/2024 1:00 PM EDT Office Visit [facility] [address] [facility] [place] [address] Kassi Ronquillo, KARINA [address] [place] [address] 12/15/2024 11:00 AM EDT Appointment Medical Office Building Cardiac Diagnostic Testing Medical Office Building Echo Lab [address] [facility], [address] [place] [address] 12/15/2024 12:30 PM EDT Office Visit [facility] [address] [facility], [address] [place] [address] Ankita Vásquez PA [address] [place] [address] 01/28/2025 11:20 AM EDT Office Visit Professional [facility] Nephrology, Bone & Mineral Metabolism [address] [facility], [address] [place] [address] Amanda Adams MD [address] [facility] [address] [place] [address] 03/08/2025 1:30 PM EST Appointment [facility] [address] [place] [address] 03/08/2025 3:50 PM EST Office Visit [facility] [address] [place] [address] Vini Lord MD [address] [facility] [address] [place] [address] 11/02/2025 9:30 AM EDT Appointment Medical Office Building Cardiac Diagnostic Testing Medical Office Building Echo Lab [address] [facility], [address] [place] [address] 11/02/2025 11:00 AM EDT Office Visit [facility] [address] [facility], [address] [place] [address] Ankita Vásquez PA [address] [place] [address] documented as of this encounter Visit Diagnoses Not on filedocumented in this encounter Additional Health Concerns Assessment Noted Time PHQ-9 Depression Total Score: 0 08/24/19 25 10:33 AM EDT A fall risk assessment has been complete d for the patient 09/08/2024 10:05 AM EDT A Body Mass Index follow-up plan has been documented for the patient 09/13/2024 3:59 PM EDT documented as of this encounter Care Teams Manager Intensive Care Unit Relationship Specialty Start Date End Date Onur Guerrero MD PCP - General Family Medicine 01/22/22 documented as of this encounter
--- OUTSIDE RECORDS SUMMARY | 2024-11-11 10:04 | XMS_ITS | Clinical Summary ---
Author Organization [facility] Address [address] [place] [address] Care Team Providers Care Community Health Nurse Name Role Phone Onur Guerrero MD Primary Care Provider Dyana vailable Allergies Active Allergy Reactions Criticality Noted Date Comments Amoxicillin-Pot Clavulanate Unknown - Pa tient states they do not know rxn details Low 12/04/2007 Lisinopril Cough Low 10/22/2023 Medications Multiple Vitamins-Minerals (multivitamin with minerals) tablet Take 1 tablet by mouth every morning. Active escitalopram (Lexapro) 10 MG tablet Take 1 tablet by mouth nightly. 08/02/19 22 Active omeprazole (PriLOSEC) [address] capsule Take 1 capsule by mouth daily. 09/12/19 22 Active ASPIRIN 81 MG chewable tablet Chew 1 tablet daily. Active calcium carbonate (Tums Ultra) 1000 MG chewable tablet Chew 3 tablets 2 times a day. 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 30 tablet 11 03/09/20 24 2024 Active levothyroxine (Synthroid, Levoxyl) 175 MCG tablet Take 1 tablet (175 mcg) by mouth 1 (one) time each day. 90 tablet 1 05/19/19 25 Active magnesium oxide (Mag-Ox) 400 (240 Mg) MG tablet Take 1 tablet by mouth every morning. 06/14/19 25 Active calcitriol (Rocaltrol) 0.25 MCG capsuleIndications:Po stsurgical hypoparathyroidism (CMS/HCC) Take 2 capsules (0.5 mcg) by mouth daily. 180 capsule 3 07/07/19 25 2025 Active Additional Information Patient taking differently:0.5 mcg Oral2 times daily, Reported on 11/02/2024 valsartan (Diovan) 320 MG tabletIndications:Ess ential hypertension Take 1 tablet by mouth daily. 90 tablet 1 07/22/19 25 Active NIFEdipine XL (Procardia XL) 60 MG 24 hr tabletIndications:Ess ential hypertension Take 1 tablet by mouth every evening. Do not crush, chew, or split. 90 tablet 1 09/29/19 25 Active hydroCHLOROthiazide (HYDRODiuril) 25 MG tablet Take 1 tablet by mouth every morning. Active ondansetron ODT (Zofran-ODT) 4 MG disintegrating tablet Dissolve 1 tablet on the tongue every 8 hours as needed for nausea or vomiting for up to 7 days. 20 tablet 10/23/19 25 2024 Active Problems Problem Noted Date Diagnosed Date Status post transcatheter aortic valve replaceme nt 10/22/2024 Nonrheumatic aortic valve stenosis 09/09/2024 BMI 26.0-26.9,adult 09/08/2024 Acute intractable headache 08/18/2024 Degenerative disc disease, lumbar 08/18/2024 Enlarged lymph node in neck 08/18/2024 Hypoxemia 08/18/2024 Junctional rhythm 08/18/2024 Left leg pain 08/18/2024 Low back pain 08/18/2024 Lumbar radiculopathy 08/18/2024 Lumbar spinal stenosis 08/18/2024 Neck pain on right side 08/18/2024 UTI (urinary tract infection) 08/18/2024 Severe aortic stenosis 08/17/2024 Nephrotic range proteinuria 06/27/2023 Nonrheumatic aortic valve insufficiency 06/13/19 24 PAD (peripheral artery disease) 06/13/2023 Overview (06/13/2023): ITA abn on Rt 0.63, pt has no sx, has sx on Lt which was normal @ 1.03. 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 er 07/13/2021 Postsurgical hypoparathyroidism 06/20/2021 Postoperative hypothyroidism 06/20/2021 Essential hypertension 06/20/2021 GERD (gastroesophageal reflux disease) Hyperlipidemia 06/20/2021 Anxiety disorder 06/20/2021 Borderline type 2 diabetes mellitus 06/20/2021 Allergic rhinitis 06/20/2021 Sigmoid diverticulosis 06/20/2021 Elevated tumor markers 06/20/2021 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 06/20/2021 Medullary carcinoma of thyroid, isolated 017 Cancer Staging:Clinical stage from 06/20/2021:Stage RADHA(rcT3a, rcN1b, rcM0) - Signed by Onur Shipman MD on 06/20/2021 Pathologic stage from 07/13/2021:Stage IVC(ypT3a, ypN1b, cM1) - Signed by Onur Shipman MD on 07/13/2021 Encounters Date Type Department Care Team Description 11/04/2024 Orders Only [facility] [address] [place] [address] Vini Lord MD Medullary carcinoma of thyroid, isolated (Primary Dx) 11/02/2024 2:50 PM EDT Office Visit [facility] [address] [place] [phone] Vini Lord MD Medullary carcinoma of thyroid, isolated (Primary Dx); 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) 11/02/2024 10:21 AM EDT - 11/02/2024 11:59 PM EDT Hospital Encounter [facility] Radiology [address] [place] [phone] Medullary carcinoma of thyroid, isolated Discharge Disposition: Home or Self Care 11/02/2024 Travel 10/27/2024 1:40 PM EDT Office Visit [facility] [address], [address] [place] [address] Amanda Adams MD CKD (chronic kidney disease) stage 2, GFR 60-89 ml/min (Primary Dx); Other secondary hypertension 10/27/2024 Travel 10/27/2024 Orders Only [facility] [address] [place] [address] Vini Lord MD 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) (Primary Dx) 10/22/2024 Travel 10/21/2024 12:43 PM EDT Anesthesia Event [facility] [address] [place] [address] Yong Agudelo MD Cline, David D, 10/21/2024 12:00 PM EDT - 10/21/2024 2:30 PM EDT Surgery [facility] [address] [place] [address] Kane Hidalgo MD TAVR [00258 (CPT )] 10/21/2024 10:10 AM EDT - 10/22/2024 12:18 PM EDT Hospital Encounter [facility] H Inpatient [address] [place] [address] Kane Hidalgo MD Nonrheumatic aortic valve stenosis Discharge Disposition: Home or Self Care 10/21/2024 Travel 09/14/2024 Episode Changes [facility] [address] [facility] [place] [address] Melanie Butler 09/08/2024 10:00 AM EDT Consult [facility] [address], [address] [place] [phone] Quoc Gee MD Moderate to severe aortic stenosis 09/08/2024 8:49 AM EDT - 09/08/2024 11:59 PM EDT Hospital Encounter [facility] [address] [place] [address] Moderate to severe aortic stenosis Discharge Disposition: Home or Self Care 09/08/2024 Travel 08/23/2024 10:40 AM EDT Consult [facility] [address] [place] [address] aGlen Lira MD Moderate to severe aortic stenosis 08/23/2024 Travel 08/17/2024 10:40 AM EDT Office Visit [facility] [address] [place] [phone] Kassi Ronquillo, KARINA Essential hypertension (Primary Dx); Moderate to severe aortic stenosis 08/17/2024 9:00 AM EDT - 08/17/2024 11:59 PM EDT Hospital Encounter [facility] Echo [address] [place] [phone] Palpitations Discharge Disposition: Home or Self Care 08/17/2024 Travel from Last 3 Months Immunizations Immunization Administration Dates Next Due Influenza, High-dose, Split Virus, Trivalent, Injectable, preservative free 02/13/2024 Influenza, high-dose, quadrivalent 02/12/2023, Influenza, injectable, MDCK, preservative free, quadrivalent 02/02/2020 Influenza, injectable, quadr ivalent, preservative free 01/26/2021 PPD Skin Test (TB Skin Test) 07/06/2018,08/31/19,06/24/2016 TD (adult), 2 Lf tetanus tox oid, preservative free, adsorbed 06/30/1996 Family History Medical History Relation Name Comments Hearing loss Brother Heart Problem Brother Lung cancer Brother Prostate cancer Brother Stroke Brother ear tubes Brother Lung cancer Father Arthritis Mother Thyroid cancer Neg Hx Relation Name Status Comments Brother Father Mother Social History Tobacco Use Types Packs/Day Years Used Date Smoking Tobacco: Never Smokeless Tobacco: Never Tobacco Cessation:Counseling Given: No Alcohol Use Standard Drinks/Week Comments Never 0 [...] Start Date Job End Date 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 Not on file Not on fi le 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 Not on file Not on jessica e Last Filed Vital Signs Vital Sign Reading [...] Mass Index 26.63 11/02/2024 1:59 PM EDT Plan of Treatment Upcoming Encounters Date Type Department Care Team (Late st Contact Info) Description 11/17/2024 10:30 AM EDT Clinical Support [facility] [address] [facility], [address] [place] [phone] 11/17/2024 11:00 AM EDT Office Visit [facility] [address] [facility], [address] [place] [phone] [place] [address] [place] [phone] 11/17/2024 1:00 PM EDT Office Visit [facility] [address] [facility], [address] [place] [phone] Kassi Ronquillo, COLLEGE ADMISSIONS COUNSELOR [address] [place] [phone] 12/15/2024 11:00 AM EDT Appointment Medical Office Building Cardiac Diagnostic Testing Medical Office Building Echo Lab [address] [facility], [address] [place] [address] 12/15/2024 12:30 PM EDT Office Visit [facility] [address] [facility], [address] [place] [phone] Ankita Vásquez PA [address] [place] [address] 01/28/2025 11:20 AM EDT Office Visit [facility] Nephrology, Bone & Mineral Metabolism [address] [facility], [address] [place] [address] Amanda Adams MD [address] [facility] [address] [place] [address] 03/08/2025 1:30 PM EST Appointment [facility] [address] [place] [address] 03/08/2025 3:50 PM EST Office Visit [facility] [address] [place] [address] Vini Lord MD [address] [facility] [address] [place] [address] 11/02/2025 9:30 AM EDT Appointment Medical Office Building Cardiac Diagnostic Testing Medical Office Building Echo Lab [address] [facility], [address] [place] [address] 11/02/2025 11:00 AM EDT Office Visit [facility] [address] [facility], [address] [place] [address] Ankita Vásquez PA [address] [place] [address] Health Maintenance Due Date Last Done Comments [facility]-Bone Density Scan 1940 [facility]-Medicare Annual Wellness (AWV) 1940 [facility]-/Child/Adol SDOH Screenings 1940 [facility]- SDOH Screenings 01/21/1960 [facility]-Adult SDOH Screenings 01/21/1960 [facility]-Hepatitis A Vaccines (1 of 2 - Risk 2-dose series) 1961 [facility]-Pneumococcal Vaccine: 50+ Years (1 of 2 - PCV) 1961 [facility]-Zoster Vaccines (1 of 2) 1961 [facility]-DTaP,Tdap,and Td Vaccines (1 - Tdap) 07/01/1996 06/30/1996 [facility]-RSV Vaccine: 60+ Years or (1 - 1-dose 75+ series) 2017 [id number] Vaccine (4 - season) 2023 02/22/2021, 06/29/2020, 06/01/2020 [facility]-Diabetes: Hemoglobin A1C 11/18/2024 11/19/2023 [facility]-Influenza Vaccine (#1) 12/27/202402/12, 02/12/2023, 02/11/2022, Additional history exists [facility]-Depression Screening 11/02/2025 025, 11/02/2024, 07/21/2023 [facility]-Obesity Intervention Completed 025, 09/09/2024, 09/08/2024, Additional history exists HPV Vaccines Aged Out No longer eligi ble based on patient's age to complete this topic [facility]-HIB Vaccines Aged Out No longer e ligible based on patient's age to complete this topic [facility]-IPV Vaccines Aged Out No longer e ligible based on patient's age to complete this topic [facility]-Rotavirus Vaccines Aged Out No lo nger eligible based on patient's age to complete this topic Medical Devices Implanted Type Area Glass Smoother Device Identifier Shelf Expiration Date Model / Serial / Lot Valve Kit Abida 3 Ultra Tavr 23mm - [id number] Implanted:Qty: 1 on 10/21/2024 by Kane Hidalgo MD at [facility]-[id number] 05/10/2027 [id number] / / [id number] Procedures Procedure Name Priority Date/Time Associated Diagnosis Comments MORPHOLOGY Routine 11/02/2024 1:57 PM EDT 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) MAGNESIUM, PLASMA Routine 11/02/2024 1:5 7 PM EDT 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) TSH Routine 11/02/2024 1:57 PM EDT 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) COMPREHENSIVE METABOLIC PANEL, PLASMA Routine 11/02/2024 1:57 PM EDT 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) CBC WITH AUTO DIFFERENTIAL Routine 11/02/2024 1:57 PM EDT 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) CEA, SERUM Routine 11/02/2024 1:57 PM EDT 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) CALCITONIN Routine 11/02/2024 1:57 PM EDT 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) CT CHEST W IV CONTRAST Routine 11/02/2024 11:22 AM EDT Medullary carcinoma of thyroid, isolated CT ABDOMEN PELVIS W IV CONTRAST Routine 11/02/2024 11:22 AM EDT Medullary carcinoma of thyroid, isolated CT SOFT TISSUE NECK W IV CONTRAST Routine 11/02/2024 11:22 AM EDT Medullary carcinoma of thyroid, isolated ECHO, ADULT TRANSTHORACIC LIMITED Routine 10/22/2024 9:50 AM EDT ECG ADULT Routine 10/22/2024 6:19 AM EDT XR CHEST 1 VIEW Routine 10/22/2024 12:27 AM EDT MAGNESIUM, PLASMA Routine 10/22/2024 12: 07 AM EDT BASIC METABOLIC PANEL, PLASMA Routine 10/22/2024 12:07 AM EDT CBC W/O DIFFERENTIAL Routine 10/22/2024 12:07 AM EDT DAISY AURIS SURVEILLANCE BY PCR Routine 10/21/2024 5:27 PM EDT MULTI DRUG RESISTANCE TEST Routine 10/21/2024 5:27 PM EDT BASIC METABOLIC PANEL, PLASMA Routine 10/21/2024 5:24 PM EDT CBC W/O DIFFERENTIAL Routine 10/21/2024 5:24 PM EDT ECG ADULT [...] UNSOLICITED RESULTS Routine 10/21/2024 10:46 AM EDT TYPE AND SCREEN Routine 10/21/2024 10:41 AM EDT N-TERMINAL PROBNP, PLASMA STAT 10/21/2024 10:41 AM EDT BASIC METABOLIC PANEL, PLASMA STAT 10/21/2024 10:41 AM EDT CBC W/O DIFFERENTIAL STAT 10/21/2024 10:[address] ANGIO ABDOMEN PELVIS Routine 09/08/2024 9:37 AM EDT Moderate to severe aortic stenosis CT ANGIO CHEST Routine 09/08/2024 9:37 AM EDT Moderate to severe aortic stenosis POCT CREATININE ISTAT UNSOLICITED RESULTS Routine 09/08/2024 8:08 AM EDT ECHO, ADULT TRANSTHORACIC COMPLETE W/ STRAIN, 3D Routine 08/17/2024 10:16 AM EDT Palpitations HEMOGLOBIN A1C Routine 11/19/2023 4:15 PM EDT Hyperglycemia from Last 3 Months or Most Recently Relevant to Health Maintenance Results * Morphology (11/02/2024 1:57 PM EDT) Pathologist [facility] [place] RBC Morphology Slide Reviewed LAB HEMATOLOGY METHOD 11/02/2024 3:00 PM EDT [facility] Clumped Platelets Present LAB HEMATOLOGY METHOD 11/02/2024 3:00 PM EDT [facility] Blood Venous blood specimen / Unknown Venipuncture / Unknown 11/02/2024 1:57 PM EDT 11/02/2024 2:19 PM EDT us Vini Lord MD LAB BLOOD ORDERABLES Final R esult [facility] [address] [place] [phone] * (ABNORMAL) Calcitonin (11/02/2024 1:57 PM EDT) Calcitonin 638.0(H) 0.0 - 5.1 pg/mL 11/04/2024 4:37 PM EDT [facility] Blood Venous blood specimen / Unknown Venipuncture / Unknown 11/02/2024 1:57 PM EDT 11/02/2024 2:48 PM EDT Narrative [facility] - 11/04/2024 4:37 PM EDT INTERPRETIVE INFORMATION: [...] or absence of malignant disease. Performed By: [employer] [address] [place] [address] General House Worker: Frederick Rincon MD, PhD CLIA Number: [id number] Vini Lord MD LAB BLOOD ORDERABLES Final R esult [facility] [address] [place] [address] * (ABNORMAL) CBC and differential (11/02/2024 1:57 PM EDT) WBC Count 9.12 3.70 - 10.30 10*3/uL LAB HEMATOLOGY METHOD 11/02/2024 3:00 PM EDT [facility] RBC Count 4.53 3.90 - 5.20 10*6/uL LAB HEMATOLOGY METHOD 11/02/2024 3:00 PM EDT [facility] HGB 12.1 11.2 - 15.7 g/dL LAB HEMATOLOGY METHOD 11/02/2024 3:00 PM EDT [facility] HCT 37.4 34.0 - 45.0 % LAB HEMATOLOGY METHOD 11/02/2024 3:00 PM EDT [facility] Platelet Count 192 155 - 369 10*3/uL LAB HEMATOLOGY METHOD 11/02/2024 3:00 PM EDT [facility] MCV 83 79 - 98 fL LAB HEMATOLOGY METHOD 11/02/2024 3:00 PM EDT [facility] Comment:Not Measured. MCH 26.7 26.0 - 32.0 pg LAB HEMATOLOGY METHOD 11/02/2024 3:00 PM EDT [facility] Comment:Not Measured MCHC 32.4 30.7 - 35.5 g/dL LAB HEMATOLOGY METHOD 11/02/2024 3:00 PM EDT [facility] Comment:Not Measured RDW 17.0(H) 11.5 - 14.5 % LAB HEMATOLOGY METHOD 11/02/2024 3:00 PM EDT [facility] Comment:Not Measured. MPV LAB HEMATOLOGY METHOD 11/02/2024 3:00 PM EDT [facility] Comment:Not Measured nRBC 0.0 <=0.0 per 100 WBCs LAB HEMATOLOGY METHOD 11/02/2024 3:00 PM EDT [facility] Differential Type Automated LAB HEMATOLOGY METHOD 11/02/2024 3:00 PM EDT [facility] Neutrophils % 76 % LAB HEMATOLOGY METHOD 11/02/2024 3:00 PM EDT [facility] Lymphocytes % 16 % LAB HEMATOLOGY METHOD 11/02/2024 3:00 PM EDT [facility] Monocytes % 5 % LAB HEMATOLOGY METHOD 11/02/2024 3:00 PM EDT [facility] Eosinophils % 1 % LAB HEMATOLOGY METHOD 11/02/2024 3:00 PM EDT [facility] Basophils % 1 % LAB HEMATOLOGY METHOD 11/02/2024 3:00 PM EDT [facility] Immature Granulocytes % 1 % LAB HEMATOLOGY METHOD 11/02/2024 3:00 PM EDT [facility] Neutrophils Absolute 7.01(H) 1.60 - 6.10 10*3/uL LAB HEMATOLOGY METHOD 11/02/2024 3:00 PM EDT [facility] Lymphocytes Absolute 1.47 1.20 - 3.90 10*3/uL LAB HEMATOLOGY METHOD 11/02/2024 3:00 PM EDT [facility] Monocytes Absolute 0.46 0.30 - 0.90 10*3/uL LAB HEMATOLOGY METHOD 11/02/2024 3:00 PM EDT [facility] Eosinophils Absolute 0.07 0.00 - 0.50 10*3/uL LAB HEMATOLOGY METHOD 11/02/2024 3:00 PM EDT [facility] Basophils Absolute 0.05 0.00 - 0.10 10*3/uL LAB HEMATOLOGY METHOD 11/02/2024 3:00 PM EDT [facility] Immature Granulocytes Absolute 0.06 0.00 - 0.06 10*3/uL LAB HEMATOLOGY METHOD 11/02/2024 3:00 PM EDT [facility] Blood Venous blood specimen / Unknown Venipuncture / Unknown 11/02/2024 1:57 PM EDT 11/02/2024 2:19 PM EDT Narrative [facility] - 11/02/2024 3:00 PM EDT Therapeutic decision making should be based on absolute values, rather than percentages. Result [facility] us Vini Lord MD LAB BLOOD ORDERABLES Final R esult Performing Organization Address City/[facility]/ZIP Co de Phone Number [facility] [address] [place] [address] * TSH (11/02/2024 1:57 PM EDT) Thyroid Stimulating Hormone, Plasma 3.18 0.40 - 4.20 uIU/mL 11/02/2024 3:51 PM EDT [facility] Blood Venous blood specimen / Unknown Venipuncture / Unknown 11/02/2024 1:57 PM EDT 11/02/2024 2:48 PM EDT Result [facility] us Vini Lord MD LAB BLOOD ORDERABLES Final R esult Performing Organization Address [facility] [place] [address] * (ABNORMAL) Magnesium (11/02/2024 1:57 PM EDT) Only the most recent of2 resultswithin the time period is included. Magnesium, Plasma 1.8(L) 1.9 - 2.4 mg/dL 11/02/2024 3:51 PM EDT [facility] Blood Venous blood specimen / Unknown Venipuncture / Unknown 11/02/2024 1:57 PM EDT 11/02/2024 2:48 PM EDT Result [facility] us Vini Lord MD LAB BLOOD ORDERABLES Final R esult Performing Organization Address City/[facility] Co de Phone Number [facility] [address] [place] [address] * (ABNORMAL) CEA (11/02/2024 1:57 PM EDT) CEA, Serum 8.3(H) <4.0 ng/mL 11/02/2024 3:26 PM EDT [facility] Blood Venous blood specimen / Unknown Venipuncture / Unknown 11/02/2024 1:57 PM EDT 11/02/2024 2:49 PM EDT Narrative [facility] - 11/02/2024 3:26 PM EDT Normal range for smokers: < 5.5 ng/ml Normal range for non-smokers: <=4.0 ng/ml Performed by Home electrochemiluminescent immunoassay. Results obtained with different test methods or kits cannot be used interchangeably. us Vini Lord MD LAB BLOOD ORDERABLES Final R esult [facility] [address] [place] [address] * (ABNORMAL) Comprehensive metabolic panel (11/02/2024 1:57 PM EDT) Glucose, Plasma 143(H) 74 - 99 mg/dL 11/02/2024 3:51 PM EDT [facility] BUN, Plasma 16 8 - 23 mg/dL 11/02/2024 3:51 PM EDT [facility] Creatinine, Plasma 0.93 0.60 - 1.10 mg/dL 11/02/2024 3:51 PM EDT [facility] BUN/Creatinine Ratio 17 11/02/2024 3:51 PM EDT [facility] Sodium, Plasma 131(L) 136 - 145 mmol/L 11/02/2024 3:51 PM EDT [facility] Potassium, Plasma 3.8 3.6 - 4.9 mmol/L 11/02/2024 3:51 PM EDT [facility] Chloride, Plasma 93(L) 97 - 107 mmol/L 11/02/2024 3:51 PM EDT [facility] CO2, Plasma 19(L) 22 - 29 mmol/L 11/02/2024 3:51 PM EDT [facility] Anion Gap 19(H) 6 - 16 mmol/L 11/02/2024 3:51 PM EDT [facility] Total Calcium, Plasma 9.0 8.9 - 10.2 mg/dL 11/02/2024 3:51 PM EDT [facility] Total Protein 7.2 6.3 - 7.9 g/dL 11/02/2024 3:51 PM EDT [facility] Albumin, Plasma 4.0 3.5 - 5.2 g/dL 11/02/2024 3:51 PM EDT [facility] AST, Plasma 23 10 - 35 U/L 11/02/2024 3:51 PM EDT [facility] Comment:Hemolyzed, result ma y be falsely increased. ALT, Plasma 19 10 - 35 U/L 11/02/2024 3:51 PM EDT [facility] Alkaline Phosphatase, Plasma 73 46 - 142 U/L 11/02/2024 3:51 PM EDT [facility] Total Bilirubin, Plasma 0.5 0.2 - 1.1 mg/dL 11/02/2024 3:51 PM EDT [facility] eGFRcr 61.5 mL/min/1.7 3m*2 11/02/2024 3:51 PM EDT [facility] Comment:Reported eGFRcr in m L/min/1.73m2 is based the CKD-EPI 2020 equation that does not use a race coefficient. Blood Venous blood specimen / Unknown Venipuncture / Unknown 11/02/2024 1:57 PM EDT 11/02/2024 2:48 PM EDT us Vini Lord MD LAB BLOOD ORDERABLES Final R esult [facility] [address] [place] [address] * CT Abdomen Pelvis w IV Contrast [...] Total DLP (Dose-Length Product): 1143.45 mGy.cm (accession [id number]), 1143.45 mGy.cm (accession [id number]). Please note: The reported value represents the [...] Total DLP (Dose-Length Product): 1143.45 mGy.cm (accession [id number]),1143.45 mGy.cm (accession [id number]). Please note: The reported valuerepresents the total [...] CT PROCEDURES Final Resu lt * CT Chest w IV Contrast (11/02/2024 [...] Total DLP (Dose-Length Product): 1143.45 mGy.cm (accession [id number]), 1143.45 mGy.cm (accession [id number]). Please note: The reported value represents the [...] Total DLP (Dose-Length Product): 1143.45 mGy.cm (accession [id number]),1143.45 mGy.cm (accession [id number]). Please note: The reported valuerepresents the total [...] error, please notify the sender immediately at [phone] and permanently delete the original report and destroy any copies or printouts. 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 us Vini Lord MD IMG CT PROCEDURES Final Resu lt * ECHO, ADULT TRANSTHORACIC LIMITED (10/22/2024 9:50 [...] there is no significant interval change noted. us Khanh Gailndo APRN CV ECHO PROCEDURES Final Re sult * ECG Adult - POD#1 (10/22/2024 6:19 AM EDT) Only the most recent of3 resultswithin the time period is included. EKG DIAGNOSIS CLASS Abnormal MUSE ECG Ventricular Rate 75 BPM MUSE ECG Atrial Rate 75 BPM MUSE ECG MS Interval 152 ms MUSE ECG QRSD Interval 124 ms MUSE ECG QT Interval 438 ms MUSE ECG QTC Interval 489 ms MUSE ECG P [place] 12 degrees MUSE ECG R [place] -45 degrees MUSE ECG T Wave [place] -12 degrees MUSE ECG Diagnosis Normal sinus [...] 6:19 AM EDT 10/22/2024 2:24 PM EDT us Khanh Hall Mateo COLLINS ECG ORDERABLES Final Resul t MUSE ECG [...] on 10/22/2024 8:51 AM us Khanh Galindo [employer]LEGE ADMISSIONS COUNSELOR IMG XR PROCEDURES Final Res ult * (ABNORMAL) CBC (10/22/2024 12:07 AM EDT) Only the most recent of3 resultswithin the time period is included. WBC Count 13.53(H) 3.70 - 10.30 10*3/uL LAB HEMATOLOGY METHOD 10/22/2024 12:34 AM EDT [facility] RBC Count 4.54 3.90 - 5.20 10*6/uL LAB HEMATOLOGY METHOD 10/22/2024 12:34 AM EDT [facility] HGB 12.1 11.2 - 15.7 g/dL LAB HEMATOLOGY METHOD 10/22/2024 12:34 AM EDT [facility] HCT 36.9 34.0 - 45.0 % LAB HEMATOLOGY METHOD 10/22/2024 12:34 AM EDT [facility] Platelet Count 292 155 - 369 10*3/uL LAB HEMATOLOGY METHOD 10/22/2024 12:34 AM EDT [facility] MCV 81 79 - 98 fL LAB HEMATOLOGY METHOD 10/22/2024 12:34 AM EDT [facility] MCH 26.7 26.0 - 32.0 pg LAB HEMATOLOGY METHOD 10/22/2024 12:34 AM EDT [facility] MCHC 32.8 30.7 - 35.5 g/dL LAB HEMATOLOGY METHOD 10/22/2024 12:34 AM EDT [facility] RDW 15.8(H) 11.5 - 14.5 % LAB HEMATOLOGY METHOD 10/22/2024 12:34 AM EDT [facility] MPV 9.0 8.8 - 12.5 fL LAB HEMATOLOGY METHOD 10/22/2024 12:34 AM EDT [facility] nRBC 0.0 <=0.0 per 100 WBCs LAB HEMATOLOGY METHOD 10/22/2024 12:34 AM EDT [facility] Blood Venous blood specimen / Unknown Venipuncture / Unknown 10/22/2024 12:07 AM EDT 10/22/2024 12:20 AM EDT Khanh Galindo APRN LAB BLOOD ORDERABLES Final Result [facility] [address] [place] [address] * (ABNORMAL) Basic metabolic panel (10/22/2024 12:07 AM EDT) Only the most recent of3 resultswithin the time period is included. Glucose, Plasma 123(H) 74 - 99 mg/dL 10/22/2024 12:47 AM EDT [facility] BUN, Plasma 16 8 - 23 mg/dL 10/22/2024 12:47 AM EDT [facility] Creatinine, Plasma 0.78 0.60 - 1.10 mg/dL 10/22/2024 12:47 AM EDT [facility] BUN/Creatinine Ratio 21 10/22/2024 12:47 AM EDT [facility] Sodium, Plasma 135(L) 136 - 145 mmol/L 10/22/2024 12:47 AM EDT [facility] Potassium, Plasma 3.5(L) 3.6 - 4.9 mmol/L 10/22/2024 12:47 AM EDT [facility] Chloride, Plasma 96(L) 97 - 107 mmol/L 10/22/2024 12:47 AM EDT [facility] CO2, Plasma 26 22 - 29 mmol/L 10/22/2024 12:47 AM EDT [facility] Anion Gap 13 6 - 16 mmol/L 10/22/2024 12:47 AM EDT [facility] Total Calcium, Plasma 8.2(L) 8.9 - 10.2 mg/dL 10/22/2024 12:47 AM EDT [facility] eGFRcr 75.9 mL/min/1.7 3m*2 10/22/2024 12:47 AM EDT [facility] Comment:Reported eGFRcr in m L/min/1.73m2 is based the CKD-EPI 2020 equation that does not use a race coefficient. Blood Venous blood specimen / Unknown Venipuncture / Unknown 10/22/2024 12:07 AM EDT 10/22/2024 12:19 AM EDT us Khanh Galindo APRN LAB BLOOD ORDERABLES Final Result Performing Organization Address [facility] Co de Phone Number [facility] [address] [place] [address] * Daisy auris Surveillance by PCR (10/21/2024 5:27 PM EDT) Daisy auris PCR Result Not Detected Not Detected 10/22/2024 1:29 PM EDT [facility] Swab (Axilla and Groin) Non-blood Collection / Unknown 10/21/2024 5:27 PM EDT 10/21/2024 5:38 PM EDT Narrative [facility] - 10/22/2024 1:29 PM EDT This PCR assay was developed and its performance characteristics determined by [facility] as appropriate for clinical purposes. This assay has not been cleared or approved by the FDA, but is performed in a CLIA regulated laboratory that is qualified to perform high-complexity testing. us Kane Hidalgo MD LAB MICROBIOLOGY - GENERAL [facility] Final Result Performing Organization Address [facility] [place] [place] [address] * Multi Drug Resistance Test (10/21/2024 5:27 PM EDT) [facility] Culture No growth at day 1 10/22/2024 8:22 PM EDT [facility] Swab (Nares and Vilma Rectal) Non-blood Collection / Unknown 10/21/2024 5:27 PM EDT 10/21/2024 5:38 PM EDT Narrative [facility] - 10/22/2024 8:22 PM EDT This test was developed and its performance characteristics determined by the [facility]. Although the media is FDA-approved, it is not FDA-approved for all specimen types submitted. The FDA has determined that such clearance or approval is not necessary. This test is used for surveillance purposes. It should not be regarded as investigational or for research. The [facility] is certified under the Clinical Laboratory Improvement Amendments of 1988 (CLIA-88) as qualified to perform high complexity clinical laboratory testing. Kane Hidalgo MD LAB MICROBIOLOGY - GENERAL [facility]ES Final Result [facility] [address] [place] [address] * ECHO, ADULT TRANSTHORACIC LIMITED W/ COLOR [...] Cardiothoracic Surgery physicians. The primary Interventional Cardiology webfed offset press operator was Dr. Kane Hidalgo and the primary Cardiothoracic Surgery webfed offset press operator was Dr. Neelima Gray. The procedure, risks, [...] * POCT ACT (10/21/2024 1:32 PM EDT) ACT (Low Range) 323 65 - 400 seconds 11/01/2024 9:14 AM EDT [facility] Coach Mechanic ID Vittitow, Nabila 11/01/2024 9:14 AM EDT [facility] ACT Device ID [id number] 11/01/2024 9:14 AM EDT [facility] Comment 11/01/2024 9:14 AM EDT [facility] Comment: ACT performed by [...] UNSOLICITED RESULTS Final Result Performing Organization Address City/[facility] de Phone Number HEALTH[facility]ARE [facility] [address] LAB [address] [place] [address] * POCT creatinine (10/21/2024 10:46 AM EDT) Only the most recent of2 resultswithin the time period is included. [facility] Creatinine, Point of Care 1.0 0.6 - 1.1 mg/dL 10/21/2024 10:49 AM EDT [facility] POCT eGFR 56 mL/min/1. 73m*2 10/21/2024 10:49 AM EDT [facility] Coach Mechanic ID Jerardo Lowe 10/21/2024 10:49 AM EDT [facility] LAB Device ID [id number] 10/21/2024 10:49 AM EDT [facility] Comment 10/21/2024 10:49 AM EDT [facility] Comment:Testing performed on i-STAT at the point of care. Reported eGFRcr in mL/min/1.73m2 is based the CKD-EPI 2020 equation that does not use a race coefficient. Blood Venous blood specimen / Unknown 10/21/2024 10:46 AM EDT 10/21/2024 10:49 AM EDT us Kane Hidalgo MD LAB POINT OF CARE TE ST DOCKED DEVICE UNSOLICITED RESULTS Final Result Performing Organization Address City/[facility] Co de Phone Number [facility] [address] LAB [address] [place] [address] * N-Terminal Probnp (10/21/2024 10:41 AM EDT) [facility] N-Terminal, PROBNP, Plasma 496 0 - 1,799 pg/mL 10/21/2024 11:25 AM EDT [facility] Blood Venous blood specimen / Unknown Venipuncture / Unknown 10/21/2024 10:41 AM EDT 10/21/2024 10:55 AM EDT Ankita RODRIGUEZ LAB BLOOD ORDERABLES Fi nal Result [facility] [address] [place] [address] * Type and Screen (10/21/2024 10:41 AM EDT) ABO/Rh A Positive 10/21/2024 10:41 AM EDT [facility] Antibody Screen Negative 10/21/2024 10:41 AM EDT [facility] Specimen Expiration 10/24/2024 23:59 10/21/2024 10:41 AM EDT [facility] Blood Venous blood specimen / Unknown Venipuncture / Unknown 10/21/2024 10:41 AM EDT 10/21/2024 10:52 AM EDT Ankita RODRIGUEZ [facility] BLOOD BANK TEST ORD ERABLES Final Result Performing Organization Address [facility] de Phone Number BLOOD BANK [address] [place] [address], [place] * CT Angio Abdomen Pelvis (09/08/2024 9:37 AM EDT) Anatomical Region Laterality Modality Abdomen, Pelvis Computed Tomogra phy Impressions 09/08/2024 3:42 PM EDT TAVR measurements as detailed above. Severe calcification of the aortic valve. 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 Redemonstration of borderline enlarged lymph node in the right upper paratracheal region, stable compared to prior study, accounting for differences in technique and measurement. Enhancing lesion in hepatic segment 4 is nonspecific however further characterization with multiphase liver CT may be performed if clinically indicated. Sigmoid diverticulosis without evidence of diverticulitis. CRITICAL RESULT: No. COMMUNICATION: Per this written report. By electronically signing this report, I, the attending physician, attest that I have personally reviewed the images/data for the above examination(s) and agree with the final edited report. Drafted by Jameel Huang MD on 09/08/2024 9:39 AM Final report signed by Leonila Storm MD on 09/08/2024 3:42 PM Narrative 09/08/2024 3:42 PM EDT CLINICAL INDICATION: Aortic stenosis; Preoperative planning for potential transcatheter aortic valve replacement (TAVR) procedure. COMPARISON: CT chest with IV contrast on July 06, 2024 TECHNIQUE: ECG synchronized CT of the aortic root, followed immediately by CT angiography of the thorax, abdominal and pelvic aorta, extending from the root of the neck to the inferior margins of the lesser trochanters of the femurs, was performed. Axial images were reconstructed from the source data at 0.5 mm slice thickness with a 0.25 mm reconstruction interval. Multiplanar, curved planar, and 3D images were rendered using advanced processing software and reviewed to further define anatomy and possible pathology. A total of 150 mL of Omnipaque 350 intravenous contrast media was utilized in these examinations. TOTAL DLP (Dose-Length Product): 1125.55 mGy.cm (accession [id number]), 1125.55 mGy.cm (accession [id number]). Please note: The reported value represents the total of one or more individual components during the CT acquisition on this date and at this time, and as such, the same value may appear in more than one CT report depending on the interpreting/reporting physicians. FINDINGS: Quantification of Aortic Valve Calcium Score: 1799 Volume: 1556 Aortic Root Measurements 3-Cusp view: SYRIAC 6 degrees; CAU 28 degrees Annulus area: 3.78 cm Annulus maximum diameter: 25.4 mm Annulus minimum [...] is dilated, 36 mm. Ascending aorta is also dilated, 40 mm. Scattered mixed mural plaque, without significant stenosis. Left-sided four-vessel arch, with left vertebral artery arising arch just proximal to the left subclavian artery ostium. No significant plaque in the bilateral common carotid and [...] the ostium, minimal stenosis. Similar multifocal slight dilation minimal narrowing. MICAELA: Patent. 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 Stable 9 mm right upper paratracheal lymph node (series 11 image 118). No suspicious pulmonary nodules. Right greater than left basilar atelectasis. Stable cardiomegaly. Abdomen and Pelvis: Redemonstration of the enhancing focus in the right hemiliver in hepatic segment 4 measuring approximately 10 mm (series 11 image 493); no new suspicious hepatic lesion. Gallbladder surgically absent. No suspicious pancreatic mass or lesion. Spleen enhances homogeneously. Left kidney demonstrates 4.7 cm left upper pole cyst, with additional bilateral subcentimeter cysts. Small and large bowel are normal in caliber, with sigmoid diverticulosis without evidence of diverticulitis. No retroperitoneal, mesenteric or pelvic lymphadenopathy. No pelvic mass. Musculoskeletal and body wall: Multilevel degenerative changes of the thoracic and lumbar spine, with persistent compression deformity of the T6 vertebral body, stable. Otherwise no new suspicious lytic or sclerotic osseous lesions. Calcifications in the bilateral breasts. No axillary lymphadenopathy. Procedure Note Leonila Storm MD - 09/08/2024 CLINICAL INDICATION: Aortic stenosis; Preoperative planning for potential transcatheter aorticvalve replacement (TAVR) procedure. COMPARISON: CT chest with IV contrast on July 06, 2024 TECHNIQUE: ECG synchronized CT of the aortic root, followed immediately by CTangiography of the thorax, abdominal and pelvic aorta, extending from theroot of the neck to the inferior margins of the lesser trochanters of thefemurs, was performed. Axial images were reconstructed from the sourcedata at 0.5 mm slice thickness with a 0.25 mm reconstruction interval.Multiplanar, curved planar, and 3D images were rendered using advancedprocessing software and reviewed to further define anatomy and possiblepathology. A total of 150 mL of Omnipaque 350 intravenous contrast mediawas utilized in these examinations. TOTAL DLP (Dose-Length Product): 1125.55 mGy.cm (accession [id number]),1125.55 mGy.cm (accession [id number]). Please note: The reported valuerepresents the total of one or more individual components during the CTacquisition on this date and at this time, and as such, the same value mayappear in more than one CT report depending on the interpreting/reportingphysicians. FINDINGS: Quantification of Aortic Valve Calcium Score: 1799 Volume: 1556 Aortic Root Measurements 3-Cusp view:SYRIAC 6 degrees; CAU 28 degrees Annulus area: 3.78 cm Annulus maximum diameter: 25.4 mm Annulus minimum [...] normal in course. Sinotubular junction is dilated, 36mm. Ascending aorta is also dilated, 40 mm. Scattered mixed mural plaque,without significant stenosis. Left-sided four-vessel arch, with leftvertebral artery arising arch just proximal to the left subclavian arteryostium. No significant plaque in the bilateral common carotid andbilateral subclavian arteries. Main pulmonary artery is dilated, 33 mm. Nolarge filling defect in the main, right or left pulmonary arteries. Abdominal aorta is tortuous in course, normal in caliber. Scattered smallvolume prominently calcified plaque in the abdominal aorta with minimalnarrowing. Celiac: Severe focal stenosis proximally at the diaphragmatic crura.Normal branching. SMA: Calcified plaque, minimal stenosis. Gives rise to replaced righthepatic artery. Right renal artery: Multifocal slight dilation and minimal narrowing.Accessory inferior right renal artery, small in caliber. Left renal artery: Mixed plaque at the ostium, minimal stenosis. Similarmultifocal slight dilation minimal narrowing. MICAELA: Patent. Right Iliofemoral Arteries: Common [...] Minimum luminal diameter: 7 mm Calcification: Mild Ancillary Findings: Lower Neck and Chest: Redemonstration of surgical changes compatible withprior thyroidectomy and neck dissection, persistent soft tissue fociinferior to the thyroidectomy bed, possibly residual thyroid. Stable 9 mmright upper paratracheal lymph node (series 11 image 118). No suspiciouspulmonary nodules. Right greater than left basilar atelectasis. Stablecardiomegaly. Abdomen and Pelvis: Redemonstration of the enhancing focus in the righthemiliver in hepatic segment 4 measuring approximately 10 mm (series 11image 493); no new suspicious hepatic lesion. Gallbladder surgicallyabsent. No suspicious pancreatic mass or lesion. Spleen enhanceshomogeneously. Left kidney demonstrates 4.7 cm left upper pole cyst, withadditional bilateral subcentimeter cysts. Small and large bowel are normalin caliber, with sigmoid diverticulosis without evidence ofdiverticulitis. No retroperitoneal, mesenteric or pelvic lymphadenopathy.No pelvic mass. Musculoskeletal and body wall: Multilevel degenerative changes of thethoracic and lumbar spine, with persistent compression deformity of the [id number] body, stable. Otherwise no new suspicious lytic or scleroticosseous lesions. Calcifications in the bilateral breasts. No axillarylymphadenopathy. IMPRESSION: TAVR measurements as detailed above. Severe calcification of the aorticvalve. 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 Redemonstration of borderline enlarged lymph node in the right upperparatracheal region, stable compared to prior study, accounting fordifferences in technique and measurement. Enhancing lesion in hepatic segment 4 is nonspecific however furthercharacterization with multiphase liver CT may be performed if clinicallyindicated. Sigmoid diverticulosis without evidence of diverticulitis. CRITICAL RESULT: No. COMMUNICATION: Per this written report. By electronically signing this report, I, the attending physician, attestthat I have personally reviewed the images/data for the aboveexamination(s) and agree with the final edited report. Drafted by Jameel Huang MD on 09/08/2024 9:39 AM Final report signed by Leonila Storm MD on 09/08/2024 3:42 PM us Ankita RODRIGUEZ IMG CT PROCEDURES Final Result * CT Angio Chest (09/08/2024 9:37 AM EDT) Anatomical Region Laterality Modality Chest Computed Tomogra phy Impressions 09/08/2024 3:42 PM EDT TAVR measurements as detailed above. Severe calcification of the aortic valve. 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 Redemonstration of borderline enlarged lymph node in the right upper paratracheal region, stable compared to prior study, accounting for differences in technique and measurement. Enhancing lesion in hepatic segment 4 is nonspecific however further characterization with multiphase liver CT may be performed if clinically indicated. Sigmoid diverticulosis without evidence of diverticulitis. CRITICAL RESULT: No. COMMUNICATION: Per this written report. By electronically signing this report, I, the attending physician, attest that I have personally reviewed the images/data for the above examination(s) and agree with the final edited report. Drafted by Jameel Huang MD on 09/08/2024 9:39 AM Final report signed by Leonila Storm MD on 09/08/2024 3:42 PM Narrative 09/08/2024 3:42 PM EDT CLINICAL INDICATION: Aortic stenosis; Preoperative planning for potential transcatheter aortic valve replacement (TAVR) procedure. COMPARISON: CT chest with IV contrast on July 06, 2024 TECHNIQUE: ECG synchronized CT of the aortic root, followed immediately by CT angiography of the thorax, abdominal and pelvic aorta, extending from the root of the neck to the inferior margins of the lesser trochanters of the femurs, was performed. Axial images were reconstructed from the source data at 0.5 mm slice thickness with a 0.25 mm reconstruction interval. Multiplanar, curved planar, and 3D images were rendered using advanced processing software and reviewed to further define anatomy and possible pathology. A total of 150 mL of Omnipaque 350 intravenous contrast media was utilized in these examinations. TOTAL DLP (Dose-Length Product): 1125.55 mGy.cm (accession [id number]), 1125.55 mGy.cm (accession [id number]). Please note: The reported value represents the total of one or more individual components during the CT acquisition on this date and at this time, and as such, the same value may appear in more than one CT report depending on the interpreting/reporting physicians. FINDINGS: Quantification of Aortic Valve Calcium Score: 1799 Volume: 1556 Aortic Root Measurements 3-Cusp view: SYRIAC 6 degrees; CAU 28 degrees Annulus area: 3.78 cm Annulus maximum diameter: 25.4 mm Annulus minimum [...] is dilated, 36 mm. Ascending aorta is also dilated, 40 mm. Scattered mixed mural plaque, without significant stenosis. Left-sided four-vessel arch, with left vertebral artery arising arch just proximal to the left subclavian artery ostium. No significant plaque in the bilateral common carotid and [...] the ostium, minimal stenosis. Similar multifocal slight dilation minimal narrowing. MICAELA: Patent. 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 Stable 9 mm right upper paratracheal lymph node (series 11 image 118). No suspicious pulmonary nodules. Right greater than left basilar atelectasis. Stable cardiomegaly. Abdomen and Pelvis: Redemonstration of the enhancing focus in the right hemiliver in hepatic segment 4 measuring approximately 10 mm (series 11 image 493); no new suspicious hepatic lesion. Gallbladder surgically absent. No suspicious pancreatic mass or lesion. Spleen enhances homogeneously. Left kidney demonstrates 4.7 cm left upper pole cyst, with additional bilateral subcentimeter cysts. Small and large bowel are normal in caliber, with sigmoid diverticulosis without evidence of diverticulitis. No retroperitoneal, mesenteric or pelvic lymphadenopathy. No pelvic mass. Musculoskeletal and body wall: Multilevel degenerative changes of the thoracic and lumbar spine, with persistent compression deformity of the T6 vertebral body, stable. Otherwise no new suspicious lytic or sclerotic osseous lesions. Calcifications in the bilateral breasts. No axillary lymphadenopathy. Procedure Note Leonila Storm MD - 09/08/2024 CLINICAL INDICATION: Aortic stenosis; Preoperative planning for potential transcatheter aorticvalve replacement (TAVR) procedure. COMPARISON: CT chest with IV contrast on July 06, 2024 TECHNIQUE: ECG synchronized CT of the aortic root, followed immediately by CTangiography of the thorax, abdominal and pelvic aorta, extending from theroot of the neck to the inferior margins of the lesser trochanters of thefemurs, was performed. Axial images were reconstructed from the sourcedata at 0.5 mm slice thickness with a 0.25 mm reconstruction interval.Multiplanar, curved planar, and 3D images were rendered using advancedprocessing software and reviewed to further define anatomy and possiblepathology. A total of 150 mL of Omnipaque 350 intravenous contrast mediawas utilized in these examinations. TOTAL DLP (Dose-Length Product): 1125.55 mGy.cm (accession [id number]),1125.55 mGy.cm (accession [id number]). Please note: The reported valuerepresents the total of one or more individual components during the CTacquisition on this date and at this time, and as such, the same value mayappear in more than one CT report depending on the interpreting/reportingphysicians. FINDINGS: Quantification of Aortic Valve Calcium Score: 1799 Volume: 1556 Aortic Root Measurements 3-Cusp view:SYRIAC 6 degrees; CAU 28 degrees Annulus area: 3.78 cm Annulus maximum diameter: 25.4 mm Annulus minimum [...] normal in course. Sinotubular junction is dilated, 36mm. Ascending aorta is also dilated, 40 mm. Scattered mixed mural plaque,without significant stenosis. Left-sided four-vessel arch, with leftvertebral artery arising arch just proximal to the left subclavian arteryostium. No significant plaque in the bilateral common carotid andbilateral subclavian arteries. Main pulmonary artery is dilated, 33 mm. Nolarge filling defect in the main, right or left pulmonary arteries. Abdominal aorta is tortuous in course, normal in caliber. Scattered smallvolume prominently calcified plaque in the abdominal aorta with minimalnarrowing. Celiac: Severe focal stenosis proximally at the diaphragmatic crura.Normal branching. SMA: Calcified plaque, minimal stenosis. Gives rise to replaced righthepatic artery. Right renal artery: Multifocal slight dilation and minimal narrowing.Accessory inferior right renal artery, small in caliber. Left renal artery: Mixed plaque at the ostium, minimal stenosis. Similarmultifocal slight dilation minimal narrowing. MICAELA: Patent. Right Iliofemoral Arteries: Common [...] Minimum luminal diameter: 7 mm Calcification: Mild Ancillary Findings: Lower Neck and Chest: Redemonstration of surgical changes compatible withprior thyroidectomy and neck dissection, persistent soft tissue fociinferior to the thyroidectomy bed, possibly residual thyroid. Stable 9 mmright upper paratracheal lymph node (series 11 image 118). No suspiciouspulmonary nodules. Right greater than left basilar atelectasis. Stablecardiomegaly. Abdomen and Pelvis: Redemonstration of the enhancing focus in the righthemiliver in hepatic segment 4 measuring approximately 10 mm (series 11image 493); no new suspicious hepatic lesion. Gallbladder surgicallyabsent. No suspicious pancreatic mass or lesion. Spleen enhanceshomogeneously. Left kidney demonstrates 4.7 cm left upper pole cyst, withadditional bilateral subcentimeter cysts. Small and large bowel are normalin caliber, with sigmoid diverticulosis without evidence ofdiverticulitis. No retroperitoneal, mesenteric or pelvic lymphadenopathy.No pelvic mass. Musculoskeletal and body wall: Multilevel degenerative changes of thethoracic and lumbar spine, with persistent compression deformity of the [id number] body, stable. Otherwise no new suspicious lytic or scleroticosseous lesions. Calcifications in the bilateral breasts. No axillarylymphadenopathy. IMPRESSION: TAVR measurements as detailed above. Severe calcification of the aorticvalve. 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 Redemonstration of borderline enlarged lymph node in the right upperparatracheal region, stable compared to prior study, accounting fordifferences in technique and measurement. Enhancing lesion in hepatic segment 4 is nonspecific however furthercharacterization with multiphase liver CT may be performed if clinicallyindicated. Sigmoid diverticulosis without evidence of diverticulitis. CRITICAL RESULT: No. COMMUNICATION: Per this written report. By electronically signing this report, I, the attending physician, attestthat I have personally reviewed the images/data for the aboveexamination(s) and agree with the final edited report. Drafted by Jameel Huang MD on 09/08/2024 9:39 AM Final report signed by Leonila Storm MD on 09/08/2024 3:42 PM Ankita RODRIGUEZ IMG CT PROCEDURES Final Result * ECHO, ADULT TRANSTHORACIC COMPLETE W/ STRAIN, 3D (08/17/2024 10:16 AM EDT) BSA 1.65 m2 PASHA ISCV Height 157.5 PASHA ISCV Weight 64.0 PASHA ISCV LV EDV (3D HM) 106 mL PASHA ISCV LV ESV (3D HM) 52 mL PASHA ISCV LV EF (3D HM) 51 % PASHA ISCV LVOT diam 20 mm PASHA ISCV LVOT AREA 3.1 cm2 PASHA ISCV LV V1 VTI 27.3 cm PASHA ISCV SV(LVOT) 86 mL PASHA ISCV MV E Vmax 99.2 cm/s PASHA ISCV MV A Vmax 159.0 cm/s PASHA ISCV MV E/A 0.6 cm/s PASHA ISCV RV s' Lawrence 21.3 cm/s PASHA ISCV TAPSE 23 mm PASHA ISCV PA acc time 110 msec PASHA ISCV mean PAP 30 mmHg PASHA ISCV AI Vmax 345.0 cm/s PASHA ISCV AI max PG 48 mmHg PASHA ISCV LV V1 Vmax 147.0 cm/s PASHA ISCV Ao V2 VTI 81.5 cm PASHA ISCV Ao mean PG 31 mmHg PASHA ISCV Ao V2 Vmax 375.1 cm/s PASHA ISCV Ao max PG 56 mmHg PASHA ISCV AV VTI Index 0.33 PASHA ISCV JOSE(I,D) 1.1 cm2 PASHA ISCV JOSE(VTI)/BSA_ph l 0.6 cm2/m2 PASHA ISCV MV V2 VTI 42.0 cm PASHA ISCV MV MG 4 mmHg PSAHA ISCV MV V2 max 177.0 cm/s PASHA ISCV MV max PG 13 mmHg PASHA ISCV Asc Ao Diam 38 mm PASHA ISCV PA MS(ACCEL) 28.2 mmHg PASHA ISCV LV mean PG 5.0 mmHG PASHA ISCV LV V1 mean 102.0 cm/sec PASHA ISCV LV max PG 8.6 mmHg PASHA ISCV AV-pr VR 0.4 PASHA ISCV Ao V2 mean 295.0 cm/s PASHA ISCV Ao Root Diam 35 mm PASHA ISCV LV Lat e' Velocity 7.9 cm/s PASHA ISCV LV Sept e' Lawrence 6.0 cm/s PASHA ISCV Lat E/e' 12.6 PASHA ISCV Sep E/e' 16.5 PASHA ISCV Avg E/e' 14.5 PASHA ISCV LAV(MOD-4ch) 53 mL PASHA ISCV LAV(MOD-bp) Indexed 35 mL/m2 PASHA ISCV LAV(MOD-2ch) 61 mL PASHA ISCV LVIDd 38 mm PASHA ISCV IVSd 11 mm PASHA ISCV LVPWd 11 mm PASHA ISCV LV MASS(C)D 139 g PASHA ISCV LV RWT 0.58 mm PASHA ISCV LVIDs 25 mm PASHA ISCV LA dimension 36 mm PASHA ISCV AI dec slope 207 cm/s2 PASHA ISCV AI dec time 430 msec PASHA ISCV AI P1/2t 125 msec PASHA ISCV Anatomical Region Laterality Modality Echocardiography Narrative 08/17/2024 11:05 AM EDT Left Ventricle: The left ventricle is normal size. There is concentric remodeling. The left ventricular systolic function is normal. The LVEF is visually estimated at 55 - 60%. The diastolic function is abnormal. There is grade I (mild) diastolic dysfunction. No regional wall motion abnormalities are seen. Right Ventricle: The right ventricle is normal in size. The right ventricular systolic function is normal. Aortic Valve: There is mild to moderate aortic valve regurgitation with an eccentric jet directed against the anterior mitral leaflet. There is moderate aortic stenosis. The peak gradient is 56 mmHg. The mean gradient is 31 mmHg. The estimated aortic valve area by the continuity equation is 1.1 cm2. Pericardium: No pericardial effusion. Compared to the most recently available prior study, and allowing for differences in image quality and technique, aortic valve gradients have increased. Left Ventricle The left ventricle is normal size. There is concentric remodeling. The left ventricular systolic function is normal. The LVEF is visually estimated at 55 - 60%. The diastolic function is abnormal. There is grade I (mild) diastolic dysfunction. No regional wall motion abnormalities are seen. Right Ventricle The right ventricle is normal in size. The right ventricular systolic function is normal. Unable to estimate the right ventricular systolic pressure (RVSP) due to inadequate TR signal. Left Atrium The left atrial size is mildly increased with an indexed volume of 35-41 mL/m2. The interatrial septum is intact with no evidence for an atrial septal defect. Right Atrium The right atrial size is normal. IVC/SVC Based on the IVC size and respiratory variation, the estimated right atrial pressure is 3mmHg. Mitral Valve There is moderate mitral annular calcification. There is mild mitral regurgitation. There is no mitral stenosis. Tricuspid Valve The tricuspid valve is normal in appearance. There is trace tricuspid regurgitation. There is no tricuspid stenosis. Aortic Valve The aortic valve appears to be trileaflet. There is calcification of the aortic valve leaflets. There is mild to moderate aortic valve regurgitation with an eccentric jet directed against the anterior mitral leaflet. The aortic valve pressure half- time of AR jet suggests moderate aortic regurgitation. There is moderate aortic stenosis. The peak gradient is 56 mmHg. The mean gradient is 31 mmHg. The estimated aortic valve area by the continuity equation is 1.1 cm2. Pulmonic Valve The pulmonic valve is grossly normal. There is trace pulmonic regurgitation. There is no pulmonic stenosis. Pericardium No pericardial effusion. Great Vessels The sinus of Valsalva (aortic root) diameter is 35 mm by leading edge to leading edge method. The ascending aorta diameter is 38 mm. The main pulmonary artery is normal in size. Study Details A complete transthoracic echocardiogram using two-dimensional (2D), m-mode, color and spectral flow Doppler, 3D and strain imaging was performed. During the study the apical, parasternal, subcostal and suprasternal view was captured. Overall the study quality was good. Heart rate was normal. Height: 157.5 cm. Weight: 64.0 kg. BSA: 1.65 m2. The heart rhythm during this exam was most suggestive of a sinus rhythm. Study Recommendation Compared to the most recently available prior study, and allowing for differences in image quality and technique, aortic valve gradients have increased. Peter Mercedes PATTERSON CV ECHO PROCEDURES Final Result * (ABNORMAL) Hemoglobin A1c (11/19/2023 4:15 PM EDT) Hemoglobin A1c 6.1(H) <5.7 % 11/19/2023 4:52 PM EDT [facility] Blood Venous blood specimen / Unknown Venipuncture / Unknown 11/19/2023 4:15 PM EDT 11/19/2023 4:34 PM EDT Narrative [facility] - 11/19/2023 4:52 PM EDT HA1C Interpretive Data: Diagnosis of Diabetes: Diabetic > or = 6.5% Pre-diabetic 5.7 to 6.4% Non-diabetic < or = 5.6% Glycemic Targets for Type I and Type II Diabetics: Non- Adults <7.0% Adults <6.0% Children and Adolescents <7.5% Source: [place] [employer]. Standards of medical care in diabetes,2017. Diabetes Care.2017:40 (suppl 1):S1-S135. HbA1c assay performed by an ion-exchange chromatography method that is certified traceable to the DCCT. us Dominguez Duffy MD LAB BLOOD ORDERABLES Final Resu lt [facility] [address] [place] [address] from Last 3 Months or Most Recently Relevant to Health Maintenance Insurance Advance Directives * Full Code (Latest Code Status on File) Date Activated Date Inactivated Comments 10/21/2024 3:19 PM 10/22/2024 2:19 PM Question Answer Comments I have reviewed the capacity from the link above and, if needed, have updated to appropriate status: Yes * Full Code Date Activated Date Inactivated Comments 08/14/2021 2:17 PM 08/17/2021 9:35 PM Question Answer Comments Patient has decision-making capacity? Yes Care Teams Community Health Nurse Relationship Specialty Start Date End Date Onur Guerrero MD PCP - General Family Medicine 01/22/22
--- OUTSIDE RECORDS SUMMARY | 2024-11-11 10:04 | XMS_ITS | Encounter Summary ---
Author Organization Healthcare Address [address] 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 Not on fi le [...] Chanda Vasquez documented as of this encounter Plan of Treatment Upcoming Encounters Date Type Department Care Team ([facility] st Contact Info) Description 11/17/2024 10:30 AM EDT Clinical Support [facility] [address] [facility], [address]nd [place] [phone] 11/17/2024 11:00 AM EDT Office Visit [facility] [address] [facility], [address] [place] [address] Dominguez Duffy MD [address] [facility] [address] [place] [address] 11/17/2024 1:00 PM EDT Office Visit [facility] [address] [facility], [address] [place] [address] Kassi Ronquillo, [address]IGHW[address] TRUCK DRIVER [address] [place] [address] 12/15/2024 11:00 AM EDT Appointment Medical Office Building Cardiac Diagnostic Testing Medical Office Building Echo Lab [address] [facility] [place] [address] 12/15/2024 12:30 PM EDT Office Visit [facility] [place] [facility] [address] [facility], [address] [place] [address] Ankita Vásquez, PA [address] [place] [address] 01/28/2025 11:20 AM EDT [facility] [address] [facility] [place] [address] Amanda Adams MD [address] [facility] [address] [place] [address] 03/08/2025 1:30 PM EST Appointment [facility] [address] [place] [address] 03/08/2025 3:50 PM EST Office Visit [facility] [address] [place] [address] Vini Lord MD [address] [facility] Katarina Zarate Bldg [address] [place] [address] 11/02/2025 9:30 AM EDT Appointment Medical Office Building Cardiac Diagnostic Testing Medical Office Building Echo Lab [address] [facility] [place] [address] 11/02/2025 11:00 AM EDT Office Visit [facility] [place] [facility] [address] [facility] [place] [address] Ankita Vásquez PA [address] [place] [address] documented as of this encounter [...] documented as of this encounter Care Teams Fuel Quality Tech Relationship Specialty Start Date End Date Onur Guerrero MD PCP - General Family Medicine 01/22/22 documented as of this encounter
--- OUTSIDE RECORDS SUMMARY | 2024-11-11 10:04 | XMS_ITS | Data Portability ---
Author Organization [facility] MOUNIKA Sullivan [place] [facility] Address [address] [facility] [address] [place] [address] Care Team Providers Care [employer] Principal Name Role Phone NASRA MCGRAW Primary Care Provider Assessment No assessment recorded. Plan of Treatment Reminders Order Date Submit Date Provider Last Modified By Organization Details Last Modified Time Details Appointments FOLLOW UP DAK 2024 10:20A M STEVEN GARCIA TOOL DRAWING CHECKER Not available Not available Not available Lab surgic al pathol ogy study 2023 024 [facility], [address] [place] [address], [phone], 11/19/2023 12:06:33 surgic al pathol ogy study 2023 024 [facility], [address] [place] [address], [phone], 05/07/2023 14:41:20 Referral None record ed. Procedures [...] 06/07/19 25 Injection, Intralesional completed Yanira [facility]pos [facility] 06/07/2024 10:15:05 12/04/19 24 DAK - ED&C; Scalp,neck,hand,f oot completed [facility]eri [facility] 12/04/2023 11:44:01 11/17/19 24 Biopsy Skin Lesion; Tangential completed [facility] 11/17/2023 14:40:16 11/17/19 24 Injection, Intralesional completed [facility] 11/17/2023 14:45:35 11/17/19 24 Destruction Premalignant Lesion(s) completed [facility] 11/17/2023 14:42:05 05/05/19 24 Biopsy Skin Lesion; Tangential completed [facility] 05/05/2023 10:02:30 05/05/19 24 Destruction Premalignant Lesion(s) completed [facility] 05/05/2023 10:02:24 Imaging Results None recorded. Procedure Notes None recorded. Medical Equipment None Reported. Allergies Allergen ID Allergen Name Allergen Category Reaction Reaction Severity Criticality Documentation Date Start Date Code Code System Note Provider Name and Address Organization Details Recorded Time 993826 Augmentin medicatio n Not available Not available Not available 05/05/2023 74452 2 [facility] Medications Name Sig Start Date [...] SNOMED-CT Code Diagnosis ICD10 Code Diagnosis Note [id number] ALEJANDRO KRAMER R, FISH HATCHERY SPECIALIST [facility] [address] [place] [address] 05/05/2023 09:05:46 05/05/2023 10:21:49 History of malignant neoplasm of skin 658378004 Z85.828 Last skin cancer - 09/2021 - No evidence of recurrence today- Call with any worrisome lesions or if treated lesions return- Return at regular intervals for skin exam as recommende d Multiple b enign melanocytic nevi 061636929 D22.5 - Benign moles seen on exam [...] changing or worrisome lesions Seborrheic keratosis 394 820808 L82.1 - Benign overgrowth s of skin - Hereditary 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 Risks, benefit, and procedure discussed with patient. Consent obtained. Actinic keratosis 029470 007 L57.0 Actinic keratoses are precancero us lesions that may progress to squamous cell carcinoma if untreated. UV light and genetics may increase risk. Treated lesions should blister, scab over, and heal within a few weeks. If treated lesion(s) does not resolve within 1-2 months, patient agrees to follow up for re-evaluat ion. [id number] DARRION LIEBERMAN MD [place] [address] [place] [address] 06/17/2023 08:21:04 06/20/2023 12:23:16 [id number] ALEJANDRO Goodman APRN [address] [place] [address] 11/17/2023 13:43:54 11/17/2023 14:46:09 History of malignant neoplasm of skin 024457105 Z85.828 last skin cancer - 04/2023 - No evidence of recurrence today- Call with any worrisome lesions or if treated lesions return- Return at regular intervals for skin exam as recommende d Multiple b enign melanocytic nevi 941675247 D22.5 - Benign moles seen on exam [...] changing or worrisome lesions Seborrheic keratosis 394 064635 L82.1 - Benign overgrowth s of skin - Hereditary Senile angioma 6985451 I 78.1 - Benign blood vessel growths - Hereditary Solar lentigo 15322384 L 81.4 - Benign brown spots - Sun-induce d Neoplasm o f uncertain behavior of skin 97924984 D48.5 Recommend blade biopsy. Risks, benefit, and procedure discussed with patient. Consent obtained. Discussed the biopsy only takes the top layer of the lesion for testing. This does NOT treat the skin cancer if it is one. Advised they would need to return for more treatment given the type and depth of the skin cancer when the results come in. Actinic keratosis 778623 007 L57.0 Actinic keratoses are precancero us lesions that may progress to squamous cell carcinoma if untreated. UV light and genetics may increase risk. Treated lesions should blister, scab over, and heal within a few weeks. If treated lesion(s) does not resolve within 1-2 months, patient agrees to follow up for re-evaluat ion. 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 Frequently due to pressure such as sleeping on ear. Treatment includes avoiding pressure on ear, ILK, and excision or curettage. Recommende d a donut pillow to sleep on if can't change side you sleep on. 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 [id number] ALEJANDRO KRAMER R, FISH HATCHERY SPECIALIST DAK [facility] [address] [place] [address] 06/07/2024 09:31:07 06/07/2024 10:34:33 History of malignant neoplasm of skin 895112249 Z85.828 - No evidence of recurrence today- Call with any worrisome lesions or if treated lesions return- Return at regular intervals for skin exam as recommende d most recent; 10/2023 Multiple b enign melanocytic nevi 952321355 D22.5 - Benign moles seen on exam [...] changing or worrisome lesions Seborrheic keratosis 394 398059 L82.1 - Benign overgrowth s of skin - Hereditary Senile angioma 9639331 I 78.1 - Benign blood vessel growths - Hereditary Solar lentigo 36296502 L 81.4 - Benign brown spots - Sun-induce d Chondroder matitis nodularis helicis 61356374 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 ALEJANDRO GARCIA APRN [address] [place] [place], [address], [facility] 05/05/2023 12:16:06 11/17/2023 text/html Here for a full body skin examination - last skin check: April 2023- history of skin cancer - BCC and SCC- last skin cancer was in 04/2023- spots of concern today: I have all kinds of spots ALEJANDRO GARCIA APRN [address] [place], [address], [facility] 11/18/2023 08:49:56 12/04/2023 text/html I am here for my EDC Location: R posterior neck Bx proven Superfical BCC Path # [id number] ALEJANDRO GARCIA APRN [address] [place], [address], [facility] 12/04/2023 12:49:51 06/07/2024 text/html Here for a full body skin examination - last skin check: 11/17/2023- history of skin cancer - BCC and SCC- last skin cancer was in 11/17/2023- spots of concern today: R ear Here for a full body skin examination - last skin check: April 2023- history of skin cancer - BCC and SCC- last skin cancer was in 04/2023- spots of concern today: I have all kinds of spots ALEJANDRO GARCIA APRN [address] [place], [address], [facility] 06/07/2024 10:47:33 OBGyn Episode No OBEpisode recorded.
--- OUTSIDE RECORDS SUMMARY | 2024-11-11 10:04 | XMS_ITS ---
Author Organization [facility] Address [address] [place] [address] Care Team Providers Care Integration Specialist Name Role Phone Onur Guerrero MD Primary Care Provider Dyana vailable Active Problems Problem Noted Date Diagnosed Date [...] proteinuria 06/27/2023 Nonrheumatic aortic valve insufficiency 06/13/19 PAD (peripheral artery disease) 06/13/2023 Overview (06/13/2023): [...] Signed by Onur Shipman MD on 07/13/2021 Current Treatment and Therapy Plans Caprelsa (Vandetanib)* Plan Start Date:04/06/2024 Plan Provider:Vini Lord MD Linked Problems Medullary carcinoma of thyro id, isolated Treatment Medications No medications scheduled. Past Treatment and Therapy Plans No past plan information found. Lifetime Dose Tracking * Chemical Lifetime Dose Automatic Entry Manual Entr y Fluoro Time 8.1 minutes 0 minutes 8.1 minutes Air Kerma 139 mGy 0 mGy 139 mGy Air Kerma Area Product 12,440 Gy-cm2 0 Gy-cm2 12,4 40 Gy-cm2
--- OUTSIDE RECORDS SUMMARY | 2024-11-11 10:04 | XMS_ITS | Encounter Summary ---
Author Organization Healthcare Address [address] [id number] Care Team Providers Care Millwright Instructor Name Role Phone Onur Guerrero MD Primary Care Provider Dyana vailable Reason for Visit * Reason Comments Med Refill Encounter Details Date Type Department Care Team ([facility] Contact Info) Description 06/23/2023 Refill Pav [facility] Head, Neck & Respiratory [address] [facility], 2nd [place] [address] Onur Shipman MD [address] [address] Essential hypertension Social History Tobacco Use Types Packs/Day Years Used Date Smoking Tobacco: Never Smokeless Tobacco: Never Alcohol Use Standard Drinks/Week Comments Never 0 (1 standard drink = 0.6 oz pur e alcohol) PHQ-2 Answer Date Recorded Patient Health Questionnaire-2 Score 0 06/13/2023 PHQ-2A Answer Date Recorded Patient Health Questionnaire-2 Score 0 2023 Education Answer Date Recorded What is the [...] Date 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 [address] [place] [address] 11/17/2024 1:00 PM EDT Office Visit [facility] Head, Neck & Respiratory [address] [facility], 2nd [place] [address] Kassi Ronquillo, INFORMATION SYSTEMS PROFESSOR 800 [place] [phone] 12/15/2024 11:00 AM EDT Appointment Medical Office Building Cardiac Diagnostic Testing Medical Office Building Echo Lab [address] [facility], [address] [place] [address] 12/15/2024 12:30 PM EDT Office Visit [facility] [place] [address] [facility], [address] [place] [address] Ankita Vásquez PA 800 [place] [address] 01/28/2025 11:20 AM EDT Office Visit [facility] Nephrology, Bone & Mineral Metabolism [address] [facility], [address] [place] [address] Amanda Adams MD [address] [facility] [address] [place] [address] 03/08/2025 1:30 PM EST Appointment [facility] G Radiology [address] [place] [address] 03/08/2025 3:50 PM EST Office Visit [facility] 800 [place] [address] Vini Lord MD 800 [facility] [address] [place] [address] 11/02/2025 9:30 AM EDT Appointment Medical Office Building Cardiac Diagnostic Testing Medical Office Building Echo Lab [address] [facility], [address] [place] [address] 11/02/2025 11:00 AM EDT Office Visit [facility] [place] [address] [facility], [address] [place] [address] Ankita Vásquez PA 800 [place] [address] documented as of this encounter Visit Diagnoses Diagnosis Essential hypertension Unspecified essential hypertension documented in this encounter Additional Health Concerns Assessment Noted Time A fall risk assessment has been complete d for the patient 06/13/2023 11:17 AM EST A Body Mass Index follow-up plan has been documented for the patient 04/07/2023 1:37 PM EST documented as of this encounter Care Teams Millwright Instructor Relationship Specialty Start Date End Date Onur Guerrero MD PCP - General Family Medicine 01/22/22 documented as of this encounter
== END 2024-11-10 23:59 | disposition home or self-care (01) ==
LOC: LAB.DROPOF 11-11 10:01
PROVIDERS: PCP Family Medicine; Visit Provider Family Medicine
DX: E87.6 Hypokalemia (principal)
CPT/HCPCS: 80069; 81001; 82570; 84156; 85025; 87086; 87088; 87186

== ENCOUNTER 2024-12-30 21:45 | Outpatient (CLI) | payer MEDICARE, SELFPAY ==
--- OUTSIDE RECORDS SUMMARY | 2024-11-02 10:21 | XMS_ITS | Encounter Summary ---
Author Organization [facility] Address [address] 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 Name Role Phone Onur Guerrero MD Primary Care Provider Dyana vailable Reason for Referral * Imaging (Routine) - Closed Specialty Diagnoses / Procedures Referred By Contac t Referred To Contact Radiology Diagnoses Medullary carcinoma of thyroid, isolated Procedures CT Chest w IV Contrast Vini Lord MD [address] [address] Phone: tel: fax: Referral ID Status Reason Start Date Expiration Date Visits Re quested Visits Authorized [id number] Closed 07/08/2024 01/07/2026 1 1 * Imaging (Routine) - Closed Specialty Diagnoses / Procedures Referred By Contac t Referred To Contact Radiology Diagnoses Medullary carcinoma of thyroid, isolated Procedures CT Abdomen Pelvis w IV Contrast Vini Lord MD [address] Katarina Zarate [address] [address] Phone: tel: fax: Referral ID Status Reason Start Date Expiration Date Visits Re quested Visits Authorized [id number] Closed 07/08/2024 01/07/2026 1 1 * Imaging (Routine) - Closed Specialty Diagnoses / Procedures Referred By Contac t Referred To Contact Radiology Diagnoses Medullary carcinoma of thyroid, isolated Procedures CT Soft Tissue Neck w IV Contrast Vini Lord MD [address] Katarina Zarate [address] [address] Phone: tel: fax: Referral ID Status Reason Start Date Expiration Date Visits Re quested Visits Authorized [id number] Closed 07/08/2024 01/07/2026 1 1 Reason for Visit * Imaging (Routine) - Closed Specialty Diagnoses / Procedures Referred By Contac t Referred To Contact Radiology Diagnoses Medullary carcinoma of thyroid, isolated Procedures CT Chest w IV Contrast Vini Lord MD [address] Katarina Zarate [address] [address] Phone: tel: fax: Referral ID Status Reason Start Date Expiration Date Visits Re quested Visits Authorized [id number] Closed 07/08/2024 01/07/2026 1 1 Encounter Details Date Type Department Care Team (Latest Contact Info) Description 11/02/2024 10:21 AM EDT - 11/02/2024 11:59 PM EDT Hospital Encounter [facility] [address] [place] [address] Medullary carcinoma of thyroid, isolated Discharge Disposition: Home or Self Care Social [...] Start Date 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 Question Answer Date of Assessment Author Little interest or pleasure in doing things Not at all 11/02/2024 2:01 PM EDT Noelle Granados Feeling down, depressed, or hopeless Not at all 11/2024 2:01 PM EDT Noelle Granados Patient Health Questionnaire-2 Score 0 11/2024 2:01 PM EDT Noelle Granados * Question Answer Date of Assessment Author Trouble falling or staying a sleep, or sleeping too much Not at all 11/02/2024 2:01 PM EDT Noelle Granados Feeling tired or having yas le energy Not at all 11/02/2024 2:01 PM EDT Noelle Granados Poor appetite or overeating Not at all 11/02/2024 2: 01 PM EDT Noelle Granados Feeling bad about yourself - or that you are a failure or have let yourself or your family down Not at all 11/02/2024 2:01 PM EDT Lokesh Granados Trouble concentrating on thi ngs, such as reading the newspaper or watching television Not at all 11/02/2024 2:01 PM ERIKT Noelle Granados Moving or speaking so slowly that other people could have noticed? Or the opposite - being so fidgety or restless that you have been moving around a lot more than usual. Not at all 11/02/2024 2:01 PM ERIKT Diann Granados Thoughts that you would be b carine off or hurting yourself in some way Not at all 11/02/2024 2:01 PM EDNoelle Cowan Patient Health Questionnaire-9 Score 0 11/2024 2:01 PM EDT Noelle Granados * If you checked off any problems on this questionnaire so far, Question Answer Date of Assessment Author How difficult have these problems made it for you to do your work, take care of things at home, or get along with other people? Not difficult at all 11/02/2024 2:01 PM EDT Noelle Granados documented as of this encounter Medications at Time of Discharge [...] Take 1 tablet by mouth every morning. magnesium oxide (Mag-Ox) 400 (240 Mg) MG tablet Take 1 tablet by mouth every morning. 5 Multiple Vitamins-Minerals (multivitamin with minerals) tablet Take 1 tablet by mouth every morning. omeprazole (PriLOSEC) [address] capsule Take 1 capsule by mouth daily. 2 valsartan (Diovan) 320 MG tabletIndications:Essen tial hypertension Take 1 tablet by mouth daily. 90 tablet 1 5 levothyroxine (Synthroid, Levoxyl) 175 MCG tablet Take 1 tablet (175 mcg) by mouth 1 (one) time each day. 90 tablet 1 5 11/16/19 25 NIFEdipine XL (Procardia XL) 60 MG 24 hr tabletIndications:Essen tial hypertension Take 1 tablet by mouth every evening. Do not crush, chew, or split. 90 tablet 1 5 11/27/19 25 documented as of this encounter Miscellaneous Notes * Mil Martino - Morelia Mann - 11/02/2024 10:27 AM EDT Images from the original note were not included. 1639 Caring for Yourself after Contrast Imaging If you had ORAL contrast: ?? You can go back to your normal diet and activities as tolerated. ?? Drink plenty of fluids, unless told otherwise. If you had IV contrast: ?? You can go back to your normal diet and activities as tolerated. ?? Drink plenty of fluids, unless told otherwise. ?? Leave a bandage on the site for 30 minutes (where the IV was inserted or blood was drawn). If you had Intravesical (bladder) contrast: ?? Return to normal diet and activity. What you need to know about delayed reaction to IV contrast What is IV Contrast? ?? Contrast is a dye that is put into your body through an IV. ?? It is used for imaging scans such as CT scans and MRIs. ?? The contrast makes blood vessels, organs and other parts of your body show up better on the scan. What do I need to do after IV contrast? ?? Drink lots of fluids. This will help flush the contrast out of your system. ?? Drink 2-3 extra glasses or bottles of water within 4 hours of your scan. What is a contrast reaction? ?? A contrast reaction is a bad side effect from the contrast dye. ?? It is rare but it does happen. ?? They can be mild - such as sneezing, itching, or hives. ?? They can be severe - such as trouble breathing, throat swelling, and irregular heart beat. When do these reactions happen? ?? They often happen right after the contrast is injected. ?? Some happen hours after going home. Go to the nearest Emergency Department right away if you have any of these symptoms after you leavethe clinic or hospital. ?? Sneezing ?? Itching in your mouth, throat, eyes, ears, or skin ?? Rash or hives ?? Throwing up or stomach sickness ?? High heart rate or ?racing? of your heart ?? Feeling dizzy or woozy ?? Feeling short of breath or like you can?t take a deep breath ?? Feeling very anxious for no other reason It is very important that these reactions be treated. Tell the doctor or nurse that you are having a reaction to IV contrast dye. Do not ignore any sign of a reaction! All reactions must be assessed by a doctor. Call 911 if you are alone and your reaction is more than mild sneezing or itching. If you have a mild reaction, call to speak with a Radiologist, explain that you havehad a contrast reaction, as this needs to be added to your medical record. documented in this encounter Plan of Treatment Upcoming Encounters Date Type Department Care Team (Late st Contact Info) Description 01/28/2025 11:20 AM EDT Office Visit [facility] Nephrology, Bone & Mineral Metabolism [address], [address] [place] [address] Amanda Adams MD [address] [place] [address] 03/08/2025 1:30 PM EST Appointment [facility] [address] [place] [address] 03/08/2025 3:50 PM EST Office Visit [facility] [address] [place] [address] Vini Lord MD [address] [facility] [address] [place] [phone] 05/18/2025 12:30 PM EST Clinical Support [facility] [address] [facility] [place] [address] 05/18/2025 1:00 PM EST Office Visit [facility] [address] [facility] [place] [address] Dominguez Duffy MD [address] [place] [address] [address] [place] [address] 05/18/2025 1:40 PM EST Office Visit [facility] [address] [facility], [address] [place] [address] Kassi Ronquillo, SWITCHBOARD OPERATOR SUPERVISOR [address] [place] [address] 11/02/2025 9:30 AM EDT Appointment Medical Office Building Cardiac Diagnostic Testing Medical Office Building Echo Lab [address], [address] [place] [phone] 11/02/2025 11:00 AM EDT Office Visit [facility] [address], [address] [place] [phone] Ankita Vásquez, PA [address] [place] [address] documented as of this encounter Procedures Procedure Name Priority Date/Time Associated Diagnosis Comments CT ABDOMEN PELVIS W IV CONTRAST Routine 11/02/2024 11:22 AM EDT Medullary carcinoma of thyroid, isolated CT CHEST W IV CONTRAST Routine 11/02/2024 11:22 AM EDT Medullary carcinoma of thyroid, isolated CT SOFT TISSUE NECK W IV CONTRAST Routine 11/02/2024 11:22 AM EDT Medullary carcinoma of thyroid, isolated documented in this encounter Results * CT Chest w IV Contrast (11/02/2024 11:22 AM EDT) Anatomical Region Laterality Modality Chest Computed Tomogra phy Impressions 11/02/2024 12:37 PM EDT Thyroidectomy. Stable enlarged prevascular and right upper paratracheal mediastinal lymph nodes. No evidence of neoplastic progression in the abdomen or pelvis. CRITICAL RESULT: No. COMMUNICATION: Per this written report. By electronically signing this report, I, the attending physician, attest that I have personally reviewed the images/data for the above examination(s) and agree with the final edited report. Drafted by Christopher Bates on 11/02/2024 11:53 AM Final report signed by Lane Dawn MD on 11/02/2024 12:37 PM Narrative 11/02/2024 12:37 PM EDT CLINICAL INDICATION: Metastatic medullary thyroid cancer postthyroidectomy in 2017 and neck dissection in 2019. TECHNIQUE: Multiple CT helical images were obtained from thoracic inlet through pubic symphysis with administration of IV contrast. 100 mL of Omnipaque-300 were administered intravenously. Total DLP (Dose-Length Product): 1143.45 mGy.cm (accession [id number]), 1143.45 mGy.cm (accession [id number]). Please note: The reported value represents the total of one or more individual components during the CT acquisition on this date and at this time, and as such, the same value may appear in more than one CT report depending on the interpreting/reporting physicians. COMPARISON: CT chest angiogram 09/08/2024. CT chest 10/19/2021. FINDINGS: Mediastinum and Pleura: A 1 cm prevascular lymph node anterior to the proximal trachea (series 2 cm image 53) previously 1 cm December 2021. A 1 cm right upper paratracheal lymph node (series 2 cm image 51) previously 1 cm December 2021. Dilated main pulmonary artery (34 mm). TAVR. Aneurysmal ascending thoracic aorta (40 mm) recently 40 mm. Lungs: Right upper lobe calcified granuloma. Right middle and bilateral lower lobe linear atelectasis/scarring. Abdomen and Pelvis: Arterially enhancing right hepatic lobe lesion is not identified on more delayed phase imaging but similar to comparison 2023. Mild intra and extrahepatic bile duct dilation status post cholecystectomy. Aortic atherosclerosis. Several renal cysts noted. No new omental or peritoneal implants identified. Colonic diverticulosis is no free fluid. No abdominal or pelvic lymphadenopathy. Musculoskeletal: Chronic appearing T6 compression fracture with vertebral plana centrally. Procedure Note Lane Dawn MD - 11/02/2024 CLINICAL INDICATION: Metastatic medullary thyroid cancer postthyroidectomy in 2017 and neckdissection in 2019. TECHNIQUE: Multiple CT helical images were obtained from thoracic inlet through pubicsymphysis with administration of IV contrast. 100 mL of Omnipaque-300were administered intravenously. Total DLP (Dose-Length Product): 1143.45 mGy.cm (accession [id number]),1143.45 mGy.cm (accession [id number]). Please note: The reported valuerepresents the total of one or more individual components during the CTacquisition on this date and at this time, and as such, the same value mayappear in more than one CT report depending on the interpreting/reportingphysicians. COMPARISON: CT chest angiogram 09/08/2024. CT chest 10/19/2021. FINDINGS: Mediastinum and Pleura: A 1 cm prevascular lymph node anterior to the proximal trachea (series 2cm image 53) previously 1 cm December 2021. A 1 cm right upper paratracheal lymph node (series 2 cm image 51)previously 1 cm December 2021. Dilated main pulmonary artery (34 mm). TAVR. Aneurysmal ascending thoracic aorta (40 mm) recently 40 mm. Lungs: Right upper lobe calcified granuloma. Right middle and bilaterallower lobe linear atelectasis/scarring. Abdomen and Pelvis: Arterially enhancing right hepatic lobe lesion is notidentified on more delayed phase imaging but similar to comparison 2023.Mild intra and extrahepatic bile duct dilation status postcholecystectomy. Aortic atherosclerosis. Several renal cysts noted. No newomental or peritoneal implants identified. Colonic diverticulosis is nofree fluid. No abdominal or pelvic lymphadenopathy. Musculoskeletal: Chronic appearing T6 compression fracture with vertebralplana centrally. IMPRESSION: Thyroidectomy. Stable enlarged prevascular and right upper paratrachealmediastinal lymph nodes. No evidence of neoplastic progression in the abdomen or pelvis. CRITICAL RESULT: No. COMMUNICATION: Per this written report. By electronically signing this report, I, the attending physician, attestthat I have personally reviewed the images/data for the aboveexamination(s) and agree with the final edited report. Drafted by Christopher Bates on 11/02/2024 11:53 AM Final report signed by Lane Dawn MD on 11/02/2024 12:37 PM us Vini Lord MD IMG CT PROCEDURES Final Resu lt * CT Abdomen Pelvis w IV Contrast (11/02/2024 11:22 AM EDT) Anatomical Region Laterality Modality Abdomen, Pelvis Computed Tomogra phy Impressions 11/02/2024 12:37 PM EDT Thyroidectomy. Stable enlarged prevascular and right upper paratracheal mediastinal lymph nodes. No evidence of neoplastic progression in the abdomen or pelvis. CRITICAL RESULT: No. COMMUNICATION: Per this written report. By electronically signing this report, I, the attending physician, attest that I have personally reviewed the images/data for the above examination(s) and agree with the final edited report. Drafted by Christopher Bates on 11/02/2024 11:53 AM Final report signed by Lane Dawn MD on 11/02/2024 12:37 PM Narrative 11/02/2024 12:37 PM EDT CLINICAL INDICATION: Metastatic medullary thyroid cancer postthyroidectomy in 2017 and neck dissection in 2019. TECHNIQUE: Multiple CT helical images were obtained from thoracic inlet through pubic symphysis with administration of IV contrast. 100 mL of Omnipaque-300 were administered intravenously. Total DLP (Dose-Length Product): 1143.45 mGy.cm (accession [id number]), 1143.45 mGy.cm (accession [id number]). Please note: The reported value represents the total of one or more individual components during the CT acquisition on this date and at this time, and as such, the same value may appear in more than one CT report depending on the interpreting/reporting physicians. COMPARISON: CT chest angiogram 09/08/2024. CT chest 10/19/2021. FINDINGS: Mediastinum and Pleura: A 1 cm prevascular lymph node anterior to the proximal trachea (series 2 cm image 53) previously 1 cm December 2021. A 1 cm right upper paratracheal lymph node (series 2 cm image 51) previously 1 cm December 2021. Dilated main pulmonary artery (34 mm). TAVR. Aneurysmal ascending thoracic aorta (40 mm) recently 40 mm. Lungs: Right upper lobe calcified granuloma. Right middle and bilateral lower lobe linear atelectasis/scarring. Abdomen and Pelvis: Arterially enhancing right hepatic lobe lesion is not identified on more delayed phase imaging but similar to comparison 2023. Mild intra and extrahepatic bile duct dilation status post cholecystectomy. Aortic atherosclerosis. Several renal cysts noted. No new omental or peritoneal implants identified. Colonic diverticulosis is no free fluid. No abdominal or pelvic lymphadenopathy. Musculoskeletal: Chronic appearing T6 compression fracture with vertebral plana centrally. Procedure Note Lane Dawn MD - 11/02/2024 CLINICAL INDICATION: Metastatic medullary thyroid cancer postthyroidectomy in 2017 and neckdissection in 2019. TECHNIQUE: Multiple CT helical images were obtained from thoracic inlet through pubicsymphysis with administration of IV contrast. 100 mL of Omnipaque-300were administered intravenously. Total DLP (Dose-Length Product): 1143.45 mGy.cm (accession [id number]),1143.45 mGy.cm (accession [id number]). Please note: The reported valuerepresents the total of one or more individual components during the CTacquisition on this date and at this time, and as such, the same value mayappear in more than one CT report depending on the interpreting/reportingphysicians. COMPARISON: CT chest angiogram 09/08/2024. CT chest 10/19/2021. FINDINGS: Mediastinum and Pleura: A 1 cm prevascular lymph node anterior to the proximal trachea (series 2cm image 53) previously 1 cm December 2021. A 1 cm right upper paratracheal lymph node (series 2 cm image 51)previously 1 cm December 2021. Dilated main pulmonary artery (34 mm). TAVR. Aneurysmal ascending thoracic aorta (40 mm) recently 40 mm. Lungs: Right upper lobe calcified granuloma. Right middle and bilaterallower lobe linear atelectasis/scarring. Abdomen and Pelvis: Arterially enhancing right hepatic lobe lesion is notidentified on more delayed phase imaging but similar to comparison 2023.Mild intra and extrahepatic bile duct dilation status postcholecystectomy. Aortic atherosclerosis. Several renal cysts noted. No newomental or peritoneal implants identified. Colonic diverticulosis is nofree fluid. No abdominal or pelvic lymphadenopathy. Musculoskeletal: Chronic appearing T6 compression fracture with vertebralplana centrally. IMPRESSION: Thyroidectomy. Stable enlarged prevascular and right upper paratrachealmediastinal lymph nodes. No evidence of neoplastic progression in the abdomen or pelvis. CRITICAL RESULT: No. COMMUNICATION: Per this written report. By electronically signing this report, I, the attending physician, attestthat I have personally reviewed the images/data for the aboveexamination(s) and agree with the final edited report. Drafted by Christopher Bates on 11/02/2024 11:53 AM Final report signed by Lane Dawn MD on 11/02/2024 12:37 PM Vini Lord MD IMG CT PROCEDURES Final Resu lt * CT Soft Tissue Neck w IV Contrast (11/02/2024 11:22 AM EDT) Anatomical Region Laterality Modality Neck Computed Tomogra phy Impressions 11/02/2024 4:11 PM EDT Unchanged since the previous examination. Metastatic cervical adenopathy. Otherwise expected findings after thyroidectomy. Oli Gruber M.D. This report has been electronically signed and verified by the Radiologist whose name is printed above. This report contains privileged and confidential information and is intended solely for the use of the individual or entity to which it is addressed. If you are not the intended recipient of this report, you are hereby notified that any copying, distribution, dissemination or action taken in relation to the contents of this report is strictly prohibited and may be unlawful. If you have received this report in error, please notify the sender immediately at [phone] and permanently delete the original report and destroy any copies or printouts. 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 Additional History (per [facility]): Contrast Agent and Dose: iohexol (OMNIPaque) 350 MG/ML injection 100 mL Automated exposure control was used for radiation dose reduction. Total DLP 1143 mGy-cm Technique: Axial CT examination of the neck with intravenous contrast. Multiplanar reformats were generated. Radiation dose-reduction technique(s) were employed. Comparison: CT neck July 06, 2024 FINDINGS: Thyroidectomy. Neck dissection. Sclerosis of right thyroid cartilage, without associated mass. No neck mass. Unchanged or minimally decreased size of right paratracheal mass given slice-selection differences, previously measured 16 x 23 x 12 mm, now 19 x 20 x 12 mm (series 1 image 15). Heterogeneously enhancing 8 x 13 x 10 mm right supraclavicular node (series 1 image 22). 8 mm right level IIB node (series 1 image 32), without suspicious features. 18 x 30 x 14 mm heterogeneously enhancing right level IIB node (series 1 image 40), unchanged. Normal airway. Normal parotid and submandibular glands. Minimal cervical carotid atherosclerosis; major cervical vascular structures lies appear normal. Moderate aortic atherosclerosis. Minimal mucosal thickening in paranasal sinuses. No suspicious bone lesions. Degenerative changes of the cervical spine. Visualized orbits demonstrate no significant abnormality. 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 11/02/24(note in progress): Clinically & anatomically stable biochemically mixedresponse (calcitonin dec, CEA inc) nonfunctional sst2 NEGATIVE sporadicRAS mutated (exon 16p M918T) Stage IVC (ypT3a, pN1b, cM1) (liver,mediastinal LN) MCT dx'd 06/20/2021 and S/P total thyroidectomy (2016) andright neck node excision (2019) S/P vandetanib 300 mg (07/24/2021- 11/2022;200 mg daily (11/2022-02/2024); 100 mg daily... Additional History (per [facility]): Contrast Agent and Dose: iohexol (OMNIPaque) 350 MG/ML injection 100 mL Automated exposure control was used for radiation dose reduction. TotalDLP 1143 mGy-cm Technique: Axial CT examination of the neck with intravenous contrast.Multiplanar reformats were generated. Radiation dose-reductiontechnique(s) were employed. Comparison: CT neck July 06, 2024 FINDINGS: Thyroidectomy. Neck dissection. Sclerosis of right thyroid cartilage,without associated mass. No neck mass. Unchanged or minimally decreased size of right paratracheal mass givenslice- selection differences, previously measured 16 x 23 x 12 mm, now 19 x20 x 12 mm (series 1 image 15). Heterogeneously enhancing 8 x 13 x 10 mm right supraclavicular node(series 1 image 22). 8 mm right level IIB node (series 1 image 32), without suspiciousfeatures. 18 x 30 x 14 mm heterogeneously enhancing right level IIB node (series 1image 40), unchanged. Normal airway. Normal parotid and submandibular glands. Minimal cervicalcarotid atherosclerosis; major cervical vascular structures lies appearnormal. Moderate aortic atherosclerosis. Minimal mucosal thickening inparanasal sinuses. No suspicious bone lesions. Degenerative changes ofthe cervical spine. Visualized orbits demonstrate no significantabnormality. IMPRESSION: Unchanged since the previous examination. Metastatic cervical adenopathy. Otherwise expected findings afterthyroidectomy. Oli Gruber M.D. This report has been electronically signed and verified by the Radiologistwhose name is printed above. This report contains privileged and confidential information and isintended solely for the use of the individual or entity to which it isaddressed. If you are not the intended recipient of this report, you arehereby notified that any copying, distribution, dissemination or actiontaken in relation to the contents of this report is strictly prohibitedand may be unlawful. If you have received this report in error, pleasenotify the sender immediately at [phone] and permanently delete theoriginal report and destroy any copies or printouts. Vini Lord MD IMG CT PROCEDURES Final Resu lt documented in this encounter Visit Diagnoses Diagnosis Medullary carcinoma of thyroid, isolated Malignant neoplasm of thyroid gland documented in this encounter Administered Medications Inactive Administered Medications - up to 3 most recent administrations Medication Order MAR Action Action Date Dose Rate Site iohexol (OMNIPaque) 350 MG/ML injection 100 mL 100 mL, Intravenous, Once in imaging, 1 dose, Starting on 11/02/24 at 1027, Until 11/02/24 at 1120, Routine, Imaging Protocol Orders Given 11/02/2024 11:20 AM EDT 100 mL iohexol (OMNIPaque) 9 MG/ML oral contrast 500 mL 500 mL, Oral, Once in imaging, 1 dose, Starting on 11/02/24 at 1027, Until 11/02/24 at 1120, Routine, Imaging Protocol Orders Given 11/02/2024 11:20 AM EDT 500 mL documented in this encounter Additional Health Concerns Assessment Noted Time PHQ-9 Depression Total Score: 0 11/03/19 2:01 PM EDT A fall risk assessment has been complete d for the patient 11/02/2024 2:02 PM EDT A Body Mass Index follow-up plan has been documented for the patient 11/01/2024 12:19 PM EDT documented as of this encounter Care Teams Electric Motor Controls Assembler Relationship Specialty Start Date End Date Onur Guerrero MD PCP - General Family Medicine 01/22/22 documented as of this encounter
--- OUTSIDE RECORDS SUMMARY | 2024-11-02 14:50 | XMS_ITS | Encounter Summary ---
Author Organization Healthcare Address [address] 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) Social History Tobacco Use Types Packs/Day Years [...] Start Date Job End Date 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 Not on file Not on fi le 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 Not on file Not on jessica e documented as of this encounter Last Filed Vital Signs Vital Sign Reading Time Taken Comments Blood Pressure 191/71 11/02/2024 1:59 PM EDT Pulse 61 11/02/2024 1:59 PM EDT Temperature 36.5 C (97.7 F) 11/02/2024 1:59 PM EDT Respiratory Rate 16 11/02/2024 1:59 PM EDT Oxygen Saturation 95% 11/02/2024 1:59 PM EDT Inhaled Oxygen Concentration - - Weight 66 kg (145 lb 9.6 oz) 11/02/2024 1:59 PM EDT Height 157.5 cm (5' 2 ) 11/02/2024 1:59 PM EDT Body Mass Index 26.63 11/02/2024 1:59 PM EDT documented in this encounter Functional Status * Over the [...] television Not at all 11/02/2024 2:01 PM EDT Noelle Granados Moving or speaking so slowly that other people could have noticed? Or the opposite - being so fidgety or restless that you have been moving around a lot more than usual. Not at all 11/02/2024 2:01 PM EDT Diann Granados Thoughts that you would be b carine off or hurting yourself in some way Not at all 11/02/2024 2:01 PM EDT Noelle Granados Patient Health Questionnaire-9 Score 0 11/2024 2:01 [...] Noelle Granados documented as of this encounter Miscellaneous Notes * Progress Notes - Ventura Moeller MD - 11/02/2024 2:50 PM EDT Images from the original note were not included. Patient ID: Marya Guerrier is a 84 y.o. female. Referring Physician: No referring provider defined for this encounter. 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 - ECG today==> Qtc <500 - Continue to follow with Cardiology-Oncology - Continue to follow with Nephrology - Keep Dr. Duffy with Endocrinology appts. 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 Guerrier is seen in the clinic to review scan and lab results. She has been off vandetanib for the past 2 wks b/o worsening edema and higher BP, w/o SOA. She has dec the nifedipine as directed as she is taking it in the morning with valsartan. She remains off amiloride, hydrochlorothiazide, and torsemide as directed. She continues to be followed closely by cardio- and nephro- oncology. 07/06/2024 Ms. Guerrier is seen in the clinic to review scan and lab results. She has been feeling very well since her dose reduction. No further swelling in her legs. BP controlled, continues to have palpitations with exertion, follows with cardio-onc. Feels that one of her right sided cervical chain lymph nodes has increased somewhat in size. CT soft tissue neck pending. 11/02/2024: Ms. Guerrier is seen in the clinic to review scan and lab results. She recently underwent TAVR on 10/22, and has been doing well since then, with no significant SOA or palpitations, however, continues to complain of legs welling intermittently. We went over the CT scan results, that they are stable with no progression. Her calcitonin and CEA are still pending at the time of the visit. History of Present Illness: HPI 11/04/2023: Initial Visit: Ms. Lin Guerrier is a 84 y.o. WWF from [place], [place] and referred to me as her thyroid oncologist has retired for management of her sporadic metastatic RET mutation: Exon 16, p. M918T (JAMES genotyping: case # [id number]; reported 09/27/21) MCT. Ms. Guerrier's comorbidities include liver disease (hep C), hypothyroidism, hypoparathyroidism, essential hypertension, sinusitis, CRF, PAD, and non-rheumatic aortic valve insufficiency. 06/2023 CEA: 7.8, calcitonin 178. Her most recent scans on 10/27/2023 revealed stable disease. MRI abd no changes from MRI 06/20/2023 and unchanged indeterminate hepatic segment Radha lesion and possible posterior perihepatic peritoneal disease. CT soft tissue neck: no significant change or minimally i ncreased sizes of pathologic lymph nodes. Unchanged thyroidectomy surgical bed, no recurrence. Patient follows with Nephrology for CKD and nephrotic range proteinuria. 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 Patient reports her BP is fairly well controlled at home 130s/60s, BP in clinic today 169/54. Nephrology and PCP managing BP. Denies any headache, CP, SOA, vision changes, lightheadedness/dizziness. Is c/o right lower leg pain today. States she has MRI of lumbar spine next week as her PCP is concerned pain is secondary to radiculopathy. Endorses shooting pian, difficulty walking with right leg, and in termittent numbness and tingling. Prior notes from Dr. Shipman: 07/13/2021: This patient returns with unresectable medullary thyroid carcinoma. She has locally persistent medullary thyroid carcinoma, metastatic to the mediastinum and distantly metastatic to the liver as revealed by functional and structural imaging studies. The baseline serum calcitonin on 06/20/21 was 13,534 pg/mL and CEA was 11.9 ng/mL.. We have obtained full tumor staging, with DODATATE-PET/CT scanning including abdominal MRI (revealing two liver metastases: 16 x 12 mm in segment 4a and 8x 5 mm in segment 6/7) and we are awaiting results of germline genetic testing for RET mutations (sent on 06/20/21), to both assess for the need for family screening (if positive in the blood) and to define whether there is a tumor RET mutation that would permit use of RET-specific chemotherapeutics. If this is a sporadic medullary carcinoma, then we will send tumor tissue form the 04/01/17 thyroidectomy for genotyping (via [facility]) since 50% of sporadic cases will still have a RET mutation in the t umor. In the meantime, the patent will be started on vandetanib (Caprelsa) 300 mg daily. 08/21/2021: This patient returns with unresectable sporadic medullary thyroid carcinoma, now on vandetanib (Caprelsa) chemotherapy. She has locally persistent medullary thyroid carcinoma, metastatic to the mediastinum and distantly metastatic to the liver as revealed by functional and structural imaging studies. The baseline serum calcitonin on 06/20/21 was 13,534 pg/mL and CEA was 11.9 ng/mL. The baseline staging, with DODATATE-PET/CT scanning including abdominal MRI (revealing two liver metastases: 16 x 12 mm in segment 4a and 8 x 5 mm in segment 6/7) and germline genetic testing for RET mutations is negative, making this a sporadic medullary cancer and necessitating tumor gene sequencing for a tumor RET mutation that would permit later use of RET-specific chemotherapeutics. The patient was started on vandetanib 300 mg daily on 07/24/21. Unfortunately, the previously mild hypoparathyroidism quickly became quite severe and the patient was admitted to an outside hospital on 08/11/21, dis charged on 08/13/21, and then re-admitted to [facility] from 08/14/21 until 08/17/21 with chestpain, hyponatremia and continued hypocalcemia. It appears that, although electrolytes were stablized and the patient's symptoms resolved, her hypoparathyroidism was not sufficiently addressed. The vandetanib (and some levothyroxine doses) had not been administered from 08/12/21 until 08/17/21; nonetheless, the calcitonin was obtained on 08/17/21 and clearly diminished to 868.0 pg/mL, a reduction of 94% from the baseline. We will correct the hypoparathyroidism and continue with current vandetanib therapy. 01/22/2022: This patient returns with unresectable sporadic medullary thyroid carcinoma. The patientwas started on vandetanib 300 mg daily on 07/24/21. Baseline 06/20/21 studies showed calcitonin 13,534.0 pg/mL and CEA 11.9 ng/mL. Laboratory studies on 01/14/22 shows calcitonin 125.0 pg/mL and CEA 7.5ng/mL, evidencing an excellent treatment response. Structural disease assessment on 01/14/22 with abdominal MRI shows the liver lesion stable, maintaining a partial response from baseline, and CT scans of the neck and chest shows neck tumor sites stable and mediastinal nodes diminished in size. The TSH is finally properly diminished to 0.34; however, the ionized calcium is still low at 4.0. Potassium is low at 3.2 and magnesium is low at 1.3. We will again address these abnormal levels by increasing the potassium replacement, attempting to increase compliance with calcium carbonate and calcitriol, and adding magnesium tablets. We will continue with the current therapy and re-assess the patient in 3 months. 05/21/2022: This patient returns in follow-up of recurrent, unresectable, distantly metastatic, sporadic medullary thyroid carcinoma. The patient was started on vandetanib 300 mg daily on 07/24/21. Baseline 06/20/21 studies showed calcitonin 13,534.0 pg/mL and CEA 11.9 ng/mL. Laboratory studies on 05/14/22 shows calcitonin 181.0 pg/mL and CEA 6.5 ng/mL, evidencing an excellent continued treatment response. Structural disease assessment on 05/14/22 with abdominal MRI shows the liver lesions stable, maintaining a partial response from baseline, and CT scans of the neck and chest shows neck tumor sites stable and mediastinal nodes diminished in size. The TSH is 2.74; however, the ionized calcium isstill low at 3.9. Potassium is fine at 4.4 and magnesium is low at 1.5. We will again address theseabnormal levels by attempting to increase compliance with calcium carbonate, calcitriol, and magnesium tablets. We will continue with the current therapy and re-assess the patient in 3 months. 08/22/2022: This patient returns in follow-up of recurrent, unresectable, distantly metastatic, sporadic medullary thyroid carcinoma. The patient was started on vandetanib 300 mg daily on 07/24/21. Baseline 06/20/21 studies showed calcitonin 13,534.0 pg/mL and CEA 11.9 ng/mL. Laboratory studies on 08/14/22 shows calcitonin 178.0 pg/mL and CEA 5.8 ng/mL, evidencing an excellent continued treatment response. Structural disease assessment on 08/14/22 with abdominal MRI shows the liver lesions stable, maintaining a partial response from baseline, and CT scans of the neck and chest shows neck tumor sites stable and mediastinal nodes diminished in size with only a few millimeter increase in a single right level 2b node. The TSH is 2.03; however, the ionized calcium is fine at 4.4. Potassium is fine at 4.6 and magnesium is low at 1.5. We will again address these abnormal levels by attempting to increase compliance with calcium carbonate, calcitriol, and magnesium tablets. We will continue with the current therapy and re-assess the patient in 3 months. 11/29/2022: This patient returns in follow-up of recurrent, unresectable, distantly metastatic, sporadic medullary thyroid carcinoma. The patient was started on vandetanib 300 mg daily on 07/24/21. Baseline 06/20/21 studies showed calcitonin 13,534.0 pg/mL and CEA 11.9 ng/mL. Laboratory studies on 11/22/22 shows calcitonin 158.0 pg/mL and CEA 6.4 ng/mL, evidencing an excellent continued treatment response. Structural disease assessment on 11/22/22 with abdominal MRI shows the liver lesions stable, maintaining a partial response from baseline, and CT scans of the neck and chest shows neck tumor sites stable and mediastinal nodes diminished in size. The TSH is elevated at 7.36 and the ionized calcium is low at 4.2. Potassium is slightly high at 4.9 and magnesium is fine at 1.9. Unfortunately, thecreatinine is increased to 1.39 and with a calculated EGFR of 38.4 we will need to reduce the vandetanib to 200 mg daily. We will again address these abnormal levels by attempting to increase compliance with calcium carbonate, calcitriol, and magnesium tablets. We will continue with the current therapy (vandetanib reduced to 200 mg daily) and re-assess the patient in 3 months. 02/28/2023: This patient returns in follow-up of recurrent, unresectable, distantly metastatic, sporadic medullary thyroid carcinoma. The patient was started on vandetanib 300 mg daily on 07/24/21. Baseline 06/20/21 studies showed calcitonin 13,534.0 pg/mL and CEA 11.9 ng/mL. Laboratory studies on 02/21/23 shows calcitonin 195.0 pg/mL and CEA 6.8 ng/mL, evidencing an excellent continued treatment response. Structural disease assessment on 02/21/23 with abdominal MRI shows the liver lesions stable,maintaining a partial response from baseline, and CT scans of the neck and chest shows neck tumor sites stable and mediastinal nodes still diminished in size. The TSH is fine at 0.55 (reflecting a new balance with losses from proteinuria on levothyroxine 150 mcg daily) and the ionized calcium is adequate at 4.5. The creatinine is improved to 1.01and the vandetanib is still at 200 mg daily. The QTc on 02/21/23 is 454 msec; however EKG findings of possible infarct warrant Cardiology consultation.We will continue with the current therapy (vandetanib 200 mg daily) and re-assess the patient in 4 months. ALLERGIES: Allergies Allergen Reactions Amoxicillin-Pot Clavulanate Unknown - Patient states they do not know rxn details Lisinopril Cough Past Medical History: Past Medical History: Diagnosis Date Anxiety GERD (gastroesophageal reflux disease) Hepatitis Hep C treated with interferon Hepatitis C High blood pressure Hyperparathyroid Liver disease Medullary thyroid carcinoma Sinus problem Past Surgical History: Past Surgical History: Procedure Laterality Date GALLBLADDER SURGERY HYSTERECTOMY NECK MASS EXCISION Right 11/02/2019 PARATHYROIDECTOMY TOTAL THYROIDECTOMY Bilateral 04/01/2017 WRIST SURGERY Left Family History: Family History Problem Relation Name Age of Onset Arthritis Mother Lung cancer Father Lung cancer Brother Prostate cancer Brother Hearing loss Brother Other (ear tubes) Brother Heart Problem Brother Stroke Brother Thyroid cancer Neg Hx Social History: Social Drivers of Health Food Insecurity: Not on file Alcohol Use: Not on file Housing Stability: Unknown (02/03/2023) Received from [facility] Housing Stability Current Living Arrangements: Not on file Potentially Unsafe Housing Conditions: Not on file Tobacco Use: Low Risk (10/27/2024) Patient History Smoking Tobacco Use: Never Smokeless Tobacco Use: Never Passive Exposure: Not on file Transportation Needs: Not on file Depression: Not at risk (08/23/2024) PHQ-2 PHQ-2 Score: 0 Utilities: Not on file Stress: Not on file Intimate Partner Violence: Unknown (02/03/2023) Received from [facility] Abuse Screen Unsafe at Home or Work/School: Not on file Feels Threatened by Someone?: Not on file Does Anyone Keep You from Contacting Others or Doint Things Outside the Home?: Not on file Physical Sign of Abuse Present: Not on file Physical Activity: Not on file Social Connections: Unknown (02/03/2023) Received from [facility] Family and Community Support Help with Day-to-Day Activities: Not on file Lonely or Isolated: Not on file Financial Resource Strain: Not on file ROS: A comprehensive 14 point review of systems was performed and the pertinent positives have been documented in the HPI section of this note. PAST MEDICAL HISTORY/SOCIAL HISTORY/FAMILY HISTORY: Reviewed by me and unchanged from my prior documentation done on 11/04/2023. Medications: Current Outpatient Medications Medication Instructions aspirin (ASPIRIN) 81 mg, Daily calcitriol (ROCALTROL) 0.5 mcg, Oral, Daily calcium carbonate (TUMS ULTRA) 3,000 mg, 2 times daily Caprelsa 100 mg, Oral, Daily escitalopram (Lexapro) 10 MG tablet 1 tablet, Nightly hydroCHLOROthiazide (HYDRODIURIL) 25 mg, Every morning levothyroxine (SYNTHROID, LEVOXYL) 175 mcg, Oral, Daily magnesium oxide (MAG-OX) 400 mg, Every morning Multiple Vitamins-Minerals (multivitamin with minerals) tablet 1 tablet, Every morning NIFEdipine XL (PROCARDIA XL) 60 mg, Oral, Every evening, Do not crush, chew, or split. omeprazole (PRILOSEC) 40 mg, Daily valsartan (DIOVAN) 320 mg, Oral, Daily Objective Physical Exam: Vital Signs for this encounter: BSA: There is no height or weight on file to calculate BSA. Visit Vitals OB Status Postmenopausal Smoking Status Never Performance Status: ECO KPS: 90 Symptomatic; fully ambulatory Pain Scale: 0 Physical Exam General Appearance: Well developed, well-nourished and no acute distress Skin: Skin warm and dry, no rash Neck and Thyroid: Neck supple, no thyromegaly, cervical adenopathy present Ears, Nose, Mouth and Throat: External Nose: no mass or deformity, External Ears: no mass or deformity Respiratory: Normal respiratory effort, clear to auscultation Cardiovascular: Regular sinus rhythm, S1 normal, S2 normal 3/6 HS murmur radiating to R sternal border, rub or gallop Gastrointestinal: Non-distended, soft, non tender, no hepatomegaly, no splenomegaly and no mass Lymphatics: Cervical abnormal adenopathy Psychiatric: Normal mood and affect Results: === 07/06/24 === CT ABDOMEN PELVIS W IV CONTRAST - Narrative - CLINICAL INDICATION: Metastatic disease evaluation, history of thyroid medullary carcinoma TECHNIQUE: Multiple CT helical images were obtained from thoracic inlet through pubic symphysis with administration of IV contrast. 100 mL mL of Omnipaque-300 were administered intravenously. Total DLP (Dose-Length Product): 1542.49 mGy.cm (accession [id number]), 1542.49 mGy.cm (accession [id number]). Please note: The reported value represents the total of one or more individual components during the CT acquisition on this date and at this time, and as such, the same value may appear in more than one CT report depending on the interpreting/reporting physicians. COMPARISON: 03/09/2024 CT chest abdomen and pelvis 06/20/2023 MR abdomen FINDINGS: Mediastinum and Pleura: Postsurgical changes from prior thyroidectomy and neck dissection. Unchanged enhancing soft tissue focus inferior to the thyroidectomy bed. Unchanged 10 mm upper paratracheal node (series 2, image 16). Please see separately dictated CT neck report for further evaluation. No pleural or pericardial effusion. Aortic valve annular calcifications. Pre-existing multichamber cardiac dilatation. Lungs: Basilar scarring/atelectasis. No new or suspicious pulmonary nodules. Abdomen and Pelvis: No suspicious lesions in the partially visualized upper abdomen. Previously described segment 4 lesion was not well visualized on current exam, though appears similar to slightly decreased accounting for differences in technique (series 1, image 16). No new suspicious focal hepatic lesion. Prior cholecystectomy with mild intrahepatic biliary ductal dilatation, likely related to postcholecystectomy changes. The pancreas, spleen, and bilateral adrenal glands are unremarkable. Similar appearance of left renal cysts. Diverticulosis without acute diverticulitis. No suspicious bowel wall thickening. No suspicious pelvic mass. No suspicious adenopathy. Musculoskeletal: No suspicious lytic or sclerotic lesion. Degenerative changes of the spine. Unchanged T6 vertebral body compression deformity. - Impression - No evidence of disease progression within the chest, abdomen, or pelvis. CRITICAL RESULT: No. COMMUNICATION: Per this written report. By electronically signing this report, I, the attending physician, attest that I have personally reviewed the images/data for the above examination(s) and agree with the final edited report. Drafted by Quinn Quevedo MD on 07/06/2024 11:31 AM Final report signed by Deena Sanderson MD on 07/06/2024 11:55 AM Exam/Procedure Information CT SOFT TISSUE NECK W IV CONTRAST authorized by: Vini Lord MD Study Result Narrative & Impression [facility] - Phone Outpatient NAME: Lin Guerrier DATE OF EXAM: 07/06/2024 Patient No: [id number] Physician: Pop^Vini Date of : 1940 Examination: Soft tissue neck CT with contrast Past Medical/Surgical History (entered by technologist): Symptoms/Reason For Exam (entered by technologist): Metastatic disease evaluation Tech Notes (entered by technologist): 100 mL Intravenous iohexol OMNIPaque 300 MG/ML injection 450 mL Oral barium sulfate Readi-Cat 2 2 % suspension Dx: Medullary carcinoma of thyroid, isolated 03/09/24 Holding vandetanib for the past 2 weeks due to ED visit for hypertension. QTc on EKG ms baseline elevated. Will reduce dose to 100 mg daily. 04/06 Reports episodic headaches. Otherwise, tolerating treatment. Nephrology is co managing blood pressure. QTc on EKG 502 ms Today QTc remains stable at 500 ms on EKG. Continue current dose Additional History (per [facility]): Technique: Axial contrast enhanced CT imaging of the neck was performed with multiplanar reformats generated and reviewed. Contrast Agent and Dose: 100 cc Omnipaque 350 Automated exposure control was used for radiation dose reduction. Total DLP 1543 mGycm Comparison: Soft tissue neck CT with contrast in 03/09/24, 10/27/23 and 06/20/23. FINDINGS: Patient status post thyroidectomy. Multiple metastatic lymph nodes again demonstrated. 1 of the lymph nodes level 2b on the right image 228, series 4 appear slightly smaller on this examination but still demonstrates heterogeneous enhancement. Maximal orthogonal axial dimensions 1.5 x 1.8cm, previously 1.9 x 2.0 cm. Level 2-3 lymph node on the right image 184 and 0.8 cm greatest dimension, about the same. Lateral right supraclavicular lymph node image 106 about 0.8 cm wide, unchanged. Lymph node in the right tracheoesophageal groove region now 1.8 x 1.1 cm, previously measured about 1.9 x 1.2 cm. Left supraclavicular lymph node image 101 and 0.6 cm wide, not significant changed. Lung apex regions aerated. Mild atherosclerosis. Mucosal surfaces along the nasopharynx unremarkable. Oral tongue and tongue base region unremarkable. Scattered punctate nonobstructing stones in the salivary glands. No finding to indicate sialadenitis. Epiglottis unremarkable. Vocal folds overall symmetric. Images through the intracranial vault demonstrate atherosclerotic calcifications. Visualized paranasal sinuses aerated. There is some minimal mucosal thickening along the right maxillary antrum inferiorly. Bilateral lens extractions. Mastoid air cells with some right-sided fluid. Trace left mastoid fluid. Bilateral middle ear cavity regions aerated. Marked degenerative change C5-6 and C6-7. IMPRESSION: Abnormal lymph nodes within the patient's neck primarily on the right and extending into the right tracheoesophageal groove region. 2 of the lymph nodes appear slightly smaller on this study. The other lymph nodes are about the same. Juan Francisco Tracey MD This report has been electronically signed and [...] error, please notify the sender immediately at [phone] and permanently delete theoriginal report and destroy any copies or printouts. Result History CT Soft Tissue Neck w IV Contrast (Order #[id number]) on 07/06/2024 - Order Result History Report Related Results CT Chest w IV Contrast Final result 07/06/2024 10:56 AM CLINICAL INDICATION: Metastatic disease evaluation, history of thyroid medullary carcinoma TECHNIQUE: Multiple CT helical images were obtained from thoracic inlet through pubic symphysis with administration of IV contrast. 100 mL mL of Omnipaque-300 were administered intravenously. Total DLP (Dose-Length Product): 1542.49 mGy.cm (accession [id number]), 1542.49 mGy.cm (accession [id number]). Please note: The reported value represents the total of one or more individual components during the CT acquisition on this date and at this time, and as such, the same value may appear in more than one CT report depending on the interpreting/reporting physicians. COMPARISON: 03/09/2024 CT chest abdomen and pelvis ... No evidence of disease progression within the chest, abdomen, or pelvis. CRITICAL RESULT: No. COMMUNICATION: Per this written report. By electronically signing this report, I, the attending physician, attest that I have personally reviewed the images/data for the above examination(s) and agree with the final edited report. ... - I counseled the patient regarding risk and benefits of the current plan of management as outlinedabove. - I have independently visualized and reviewed the current radiology findings with the patient in detail. - I have extensively reviewed the staging and prognosis of this cancer and the risk and benefits ofstarting treatment. This treatment will require ongoing monitoring of toxicity by me, due to the risks of severe side effects from the treatment regimen which may include hormonal/chemotherapy/immunotherapy/oral targeted therapy/injectable radiotherapy. The selection, dosing and administration of anti-cancer agents and the management of associated toxicities requires complex medical decision making. Modifications of drug dosing and schedule as well as the initiation of supportive care interventions are often necessary because of expected toxicities. This varies individually based on patient tolerability, prior treatments and comorbidities. The optimal delivery of anticancer agents requires a healthcare delivery team experienced in the use of anticancer agents and the management of associated toxicities in patients with cancer. - I have reviewed the supportive records from other providers including, but not limited to the referring physician, PCP and other consultants and have interpreted these records in light of the current diagnosis and plan. - I have reviewed hepatic, renal as well as bone marrow function in relationship to this patient's ability to tolerate systemic cancer treatment. The individualization of drug dosing and schedule is based on their individual liver, renal and bone marrow function at the time of treatment. - Patient's questions were all answered, seemingly, to their satisfaction. Should new symptoms and/or signs and/or additional questions develop, they will contact us. - This note was generated, at least in part, by Voice Recognition Technology in combination with keyboard input . It has been reviewed by the undersigned; however, may still contain unintended errors. - I spent 40 minutes eexd-lp-[id number] with the patient and cfc-txpx-tz-face time, over half in discussion of the diagnosis and the importance of compliance with the treatment plan. Patient seen and examined with attending physician, Dr. Lord, who helped formulate the plan as above. Ventura Moeller MD PGY4 hematology/oncology fellow [facility] Cosigned by Vini Lord MD at 11/03/2024 6:37 PM EDT Associated attestation - Vini Lord MD - 11/03/2024 6:37 PM EDT I saw and evaluated the patient with the resident/fellow. I discussed the case with the resident/fellow and agree with the findings and plan as documented. documented in this encounter Plan of Treatment Upcoming Encounters Date Type Department Care Team (Late st Contact Info) Description 01/28/2025 11:20 AM EDT Office Visit [facility] Nephrology, Bone & Mineral Metabolism [address], [address] [place] [address] Amanda Adams MD [address] [place] [address] 03/08/2025 1:30 PM EST Appointment [facility] [address] [place] [phone] 03/08/2025 3:50 PM EST Office Visit [facility] [address] [place] [address] Vini Lord MD [address] [facility] [address] [place] [address] 05/18/2025 12:30 PM EST Clinical Support [facility] Res[facility] [address] [facility], [address]nd [place] [phone] 05/18/2025 1:00 PM EST Office Visit [facility] [address] [facility], 2nd [place] [address] Dominguez Duffy MD [address] [facility] [address] [place] [address] 05/18/2025 1:40 PM EST Office Visit [facility] [address] [facility], 2nd [place] [address] Kassi Ronquillo, IN STORE MARKETER [address] [place] [address] 11/02/2025 9:30 AM EDT Appointment Medical Office Building Cardiac Diagnostic Testing Medical Office Building Echo Lab [address], [address] [place] [address] 11/02/2025 11:00 AM EDT Office Visit [facility] [place] [address], [address] [place] [address] Ankita Vásquez, PA [address] [place] [address] documented as of this encounter Visit Diagnoses Diagnosis Medullary carcinoma of thyroid, isolated- Primary Malignant neoplasm of thyroid gland 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
--- OUTSIDE RECORDS SUMMARY | 2024-11-17 11:00 | XMS_ITS | Encounter Summary ---
Author Organization Healthcare Address [address] [place] [address] Care Team Providers Care Emergency Veterinary Technician Name Role Phone Onur Guerrero MD Primary Care Provider Dyana vailable Reason for Visit * Reason Comments Follow-up Encounter Details Date Type Department Care Team ([facility] Contact Info) Description 11/17/2024 11:00 AM EDT Office Visit Pav [facility] Head, Neck & Respiratory [address] , 2nd [place] [address] Dominguez Duffy MD [address] [facility] 125 [place] [address] Postoperative hypothyroidism (Primary Dx); Postsurgical hypoparathyroidism (CMS/HCC); Hyponatremia; Medullary carcinoma of thyroid, isolated; Essential hypertension; Hyperglycemia Social History Tobacco Use Types Packs/Day Years [...] Start Date Job End 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 Not on file Not on jessica e documented as of this encounter Last Filed Vital Signs Vital Sign Reading Time Taken Comments Blood Pressure 157/64 11/17/2024 11:06 AM EDT Pulse 60 11/17/2024 10:59 AM EDT Temperature 36.4 C (97.5 F) 11/17/2024 10:59 AM EDT Respiratory Rate 16 11/17/2024 10:59 AM EDT Oxygen Saturation 96% 11/17/2024 10:59 AM EDT Inhaled Oxygen Concentration - - Weight 65.9 kg (145 lb 4.5 oz) 11/17/2024 10:59 AM EDT Height 157.5 cm (5' 2 ) 11/17/2024 10:59 AM EDT Body Mass Index 26.57 11/17/2024 10:59 AM EDT documented in this encounter Miscellaneous Notes * Progress Notes - Dominguez Duffy MD - 11/17/2024 11:00 AM EDT Reason for visit: Follow-up on Hypothyroidism, hypoparathyroidism S/P H/O Thyroidectomy for MTC. Thyroid Related Surgery: #1 Date: 04/01/2017, [facility] Type: Total Thyroidectomy Node Resection: Node Picking Pathology Description: Pathology reported a right unifocal 5.0 x 4.6 x 2.9 cm medullary thyroid carcinoma without vascular invasion and with equivocal lymphatic invasion. There was no mention of C-cell hyperplasia and the tumor was intrathyroidal. A single perithyroidal lymph node was excised and it contained a metastasis (no extranodal extension). Resection Extent: R0: No residual tumor Complications: Hypocalcemia Thyroid Related Surgery: #2 Date: 11/02/2019, [facility] Node Resection: Node Picking Pathology Description: Two lymph nodes were excised and one contained a medullary thyroid carcinomametastasis Other Thyroid Cancer Surgery: right neck lymph node excision Ligia Guerrier is an 84 y.o. female. She is here w/ a female friend who was involved in the discussion during this encounter. Her last follow up visit w/ was on 05/19/24. Her last visit w/ Dr. Vini Lord (Medical Oncology) was on 11/02/2024. I reviewed the office notein angella. She is S/P TAVR with Abida 3 valve Size 23 mm on 10/21/24. There is problem with swallowing sometimes especially w/ solid food but no problem w/ pills. There is no hoarseness. No perioral numbness / tingling. She has loose stools. The patient reports pain in the L leg, she thinks OA (addressed by PCP Onur Guerrero MD). The patient denies anxiousness, palpitations, heat intolerance, and sweats. She has tremulousness if she gets anxious. The patient is on LT4 175 mcg daily, taking it on empty stomach. She is on Tums 1 g 6 daily, taken at least 1 h after LT4. She is on calcitriol 0.25 mcg bid. Objective VS: Blood pressure (!) 157/64, pulse 60, temperature 36.4 ??C (97.5 ??F), temperature source Oral, resp. rate 16, height 1.575 m (5' 2 ), weight 65.9 kg (145 lb 4.5 oz), SpO2 96%. Body mass index is 26.57 kg/m??. Wt 134 lb on 06/27/23. PE: Constitutional: Appearance: not ill-appearing. HENT: NL voice. Eyes: Extraocular Movements: intact. Neck: Thyroidectomy scar. Cardiovascular: Rate and Rhythm: Normal rate and regular rhythm. Heart sounds: Heart murmur. Pulmonary: Effort: Pulmonary effort is normal. Breath sounds: No wheezing. Musculoskeletal: Right lower leg: trace edema. Left lower leg: trace edema. Lymphadenopathy: Cervical: No cervical adenopathy. Skin: Nl texture posterior neck. Neurological: Mental Status: alert. No tremor. Tests Reviewed: Lab Results Component Value Date TSH 3.18 11/02/2024 FREET4 1.4 02/25/2024 WBC 9.12 11/02/2024 HGB 12.1 11/02/2024 HCT 37.4 11/02/2024 CHOL 174 03/11/2023 TRIG 129 03/11/2023 HDL 61 03/11/2023 LDLCALC 90 03/11/2023 NA 131 (L) 11/02/2024 K 3.8 11/02/2024 CREATININE 0.93 11/02/2024 CALCIUM 9.0 11/02/2024 ALBUMIN 4.0 11/02/2024 AST 23 11/02/2024 ALT 19 11/02/2024 Calcitonin CEA Latest Ref Rng 0.0 - 5.1 pg/mL <4.0 ng/mL 06/20/2021 67240.0 (H) 11.9 (H) 08/14/2021 868.0 (H) 09/05/2021 934.0 (H) 11.2 (H) 10/19/2021 360.0 (H) 10.5 (H) 01/14/2022 125.0 (H) 7.5 (H) 05/14/2022 181.0 (H) 6.5 (H) 08/14/2022 178.0 (H) 5.8 (H) 11/22/2022 158.0 (H) 6.4 (H) 02/21/2023 195.0 (H) 6.8 (H) 06/27/2023 178.0 (H) 7.8 (H) 11/04/2023 86.5 (H) 8.4 (H) 03/09/2024 327 7.2 04/06/2024 459 7.5 07/06/24 857 8.1 11/02/[address] ABDOMEN W AND WO IV CONTRAST 11/02/24 Abdomen and Pelvis: Arterially enhancing right hepatic [...] T6 compression fracture with vertebral plana centrally. CT CHEST W IV CONTRAST 11/02/24 Mediastinum and Pleura: A 1 cm prevascular [...] middle and bilateral lower lobe linear atelectasis/scarring. CT SOFT TISSUE NECK W IV CONTRAST 11/02/24 Thyroidectomy. Neck dissection. Sclerosis of right thyroid cartilage, without associated mass. No neck mass. Unchanged or minimally decreased size of right paratracheal mass given slice- selection differences,previously measured 16 x 23 x 12 mm, [...] suspicious bone lesions. Degenerative changes of the cervicalspine. Visualized orbits demonstrate no significant abnormality. Assessment/Plan Post surgical Hypothyroidism: The patient is taking levothyroxine 175 mcg daily. She says consistent w/ it and taking it as instructed. TSH WNL in 10/2024. Will continue LT4 175 mcg daily and monitor. Post surgical Hypoparathyroidism: The patient is on calcitriol 0.25 mcg bid and TUMS 1000 mg three pills twice daily (total 6 grams daily). Serum calcium 9 w/ albumin 4 in 10/2024. Will continue to monitor. Adjust Calcitriol if her ca < 8. Hyponatremia: last serum sodium borderline low in 10/2024, but lower than previous (131 compared to 135). Will recheck and check spot urine Na. Medullary thyroid carcinoma, sporadic: T3a N1b M1 (liver, mediastinum): The patient underwent a total thyroidectomy on 04/01/17 for a locally aggressive tumor and did not receive any further follow-upor evaluation until a recurrent right neck mass was excised on 11/02/19. When she had evidence of unresectable local and mediastinal disease in early 2021, she had a referral to this clinic on 06/20/21.She has locally persistent medullary thyroid carcinoma, metastatic to mediastinum and distantly metastatic to the liver as revealed by functional and structural imaging studies. The baseline serum calcitonin on 06/20/21 was 13,534 pg/mL and CEA was 11.9 ng/mL. The baseline staging, with DODATATE-PET/CT scanning including abdominal MRI (revealed two liver metastases: 16 x 12 mm in segment 4a and 8 x 5 mm in segment 6/7) as well as the mediastinal nodes, right neck nodes and thyroid bed tumor. 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 The patient was started on vandetanib on 07/24/21. She has been following up w/ Dr. Zheng. 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 She had a renal Bx on 07/29/23. Hypertension: The patient is taking: valsartan 320 mg daily, nifedipine ER 60 mg daily, and hydrochlorothiazide 25 mg daily. The current systolic blood pressure is > goal, she says better at home.Her heart rate is nl. Hyperglycemia: on metabolic panel. A1C 6.1 in 10/2023. Monitor. RTC: 6 months. Tests ordered: Spot urine sodium and BMP today. A1C w/ next labs. Electronically signed by: Dominguez Duffy MD [facility] ENDOCRINOLOGY [address] [place] [address]. [address] [place]. [address] PHONE [phone] FAX: [phone] documented in this encounter Plan of Treatment Upcoming Encounters Date Type Department Care Team (Late st Contact Info) Description 01/28/2025 11:20 AM EDT Office Visit [facility] Nephrology, Bone & Mineral Metabolism [address] [facility] [address] [facility] [address], [address] [place] [address] Amanda Adams MD [address] [place] [address] 03/08/2025 1:30 PM EST Appointment [facility] [address] [place] [address] 03/08/2025 3:50 PM EST Office Visit [facility] [address] [place] [address] Vini Lord MD 800 [facility] [address] [place] [address] 05/18/2025 12:30 PM EST Clinical Support Pav CC Head, Neck & Respiratory [address] [facility], 2nd [place] [address] 05/18/2025 1:00 PM EST Office Visit Pav CC Head, Neck & Respiratory [address] [facility], [address] [place] [address] Dominguez Duffy MD [address] [place] [address] [address] [place] [address] 05/18/2025 1:40 PM EST Office Visit Pav CC Head, Neck & Respiratory [address] [facility], [address] [place] [address] Kassi Ronquillo, SUPERVISOR RIDE ASSEMBLY 800 [place] [address] 11/02/2025 9:30 AM EDT Appointment Medical Office Building Cardiac Diagnostic Testing Medical Office Building Echo Lab [address] [facility], [address] [place] [address] 11/02/2025 11:00 AM EDT Office Visit [facility] [place] [address] [facility], [address] [place] [address] Ankita Vásquez PA 800 [place] [address] Scheduled Orders Name Type Priority Associated Diagnoses Orde r Schedule Hemoglobin A1c Lab Routine Hyperglycemia Expected: 11/26/2024 (Approximate), Expires: 05/29/2026 documented as of this encounter Results * Sodium, urine, random (11/17/2024 1:01 PM EDT) Sodium, Urine 86 mmol/L 11/17/2024 1:41 PM EDT [facility] Urine Urine specimen obtained by clean catch procedure / Unknown Non-blood Collection / Unknown 11/17/2024 1:01 PM EDT 11/17/2024 1:22 PM EDT us Dominguez Duffy MD LAB URINE ORDERABLES Final Resu lt [facility] [address] [place] [address] * (ABNORMAL) Basic Metabolic Panel, Plasma (11/17/2024 1:01 PM EDT) Glucose, Plasma 102(H) 74 - 99 mg/dL 11/17/2024 1:36 PM EDT [facility] BUN, Plasma 17 8 - 23 mg/dL 11/17/2024 1:36 PM EDT [facility] Creatinine, Plasma 1.00 0.60 - 1.10 mg/dL 11/17/2024 1:36 PM EDT [facility] BUN/Creatinine Ratio 17 11/17/2024 1:36 PM EDT [facility] Sodium, Plasma 135(L) 136 - 145 mmol/L 11/17/2024 1:36 PM EDT [facility] Potassium, Plasma 4.2 3.6 - 4.9 mmol/L 11/17/2024 1:36 PM EDT [facility] Chloride, Plasma 97 97 - 107 mmol/L 11/17/2024 1:36 PM EDT [facility] CO2, Plasma 23 22 - 29 mmol/L 11/17/2024 1:36 PM EDT [facility] Anion Gap 15 6 - 16 mmol/L 11/17/2024 1:36 PM EDT [facility] Total Calcium, Plasma 9.4 8.9 - 10.2 mg/dL 11/17/2024 1:36 PM EDT [facility] eGFRcr 56.4 mL/min/1.7 3m*2 11/17/2024 1:36 PM EDT [facility] Comment:Reported eGFRcr in m L/min/1.73m2 is based the CKD-EPI 2020 equation that does not use a race coefficient. Blood Venous blood specimen / Unknown Venipuncture / Unknown 11/17/2024 1:01 PM EDT 11/17/2024 1:08 PM EDT us Dominguez Duffy MD LAB BLOOD ORDERABLES Final Resu lt [facility] [address] [place] [address] documented in this encounter Visit Diagnoses Diagnosis Postoperative hypothyroidism- Primary Postsurgical hypothyroidism Postsurgical hypoparathyroidism (CMS/HCC) Hyponatremia Hyposmolality and/or hyponatremia Medullary carcinoma of thyroid, isolated Malignant neoplasm of thyroid gland Essential hypertension Unspecified essential hypertension Hyperglycemia Other abnormal glucose documented in this encounter Additional Health Concerns Assessment Noted Time PHQ-9 Depression Total Score: 0 11/03/19 25 2:01 PM EDT A fall risk assessment has been complete d for the patient 11/17/2024 11:03 AM EDT A Body Mass Index follow-up plan has been documented for the patient 11/01/2024 12:19 PM EDT documented as of this encounter Care Teams Emergency Veterinary Technician Relationship Specialty Start Date End Date Onur Guerrero MD PCP - General Family Medicine 01/22/22 documented as of this encounter
--- OUTSIDE RECORDS SUMMARY | 2024-11-17 11:45 | XMS_ITS | Encounter Summary ---
Author Organization Healthcare Address [address] 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 Not on jessica e documented as of this encounter Plan of Treatment Upcoming Encounters Date Type Department Care Team ([facility] Contact Info) Description 01/28/2025 11:20 AM EDT Office Visit [facility] Nephrology, Bone & Mineral Metabolism [address] [facility], [address] [place] [address] Amanda Adams MD [address] [facility] [address] [place] [address] 03/08/2025 1:30 PM EST Appointment [facility] G Radiology [address] [place] [address] 03/08/2025 3:50 PM EST Office Visit [facility] [address] [place] [address] Vini Lord MD [address] [facility] [address] [place] [address] 05/18/2025 12:30 PM EST Clinical Support [facility] [address] [facility] [place] [address] 05/18/2025 1:00 PM EST Office Visit [facility] [address] [facility], [address] [place] [id number] Dominguez Duffy MD [address] [place] [address] [address] [place] [address] 05/18/2025 1:40 PM EST Office Visit [facility] Res[facility] [address] [facility], [address] [place] [address] Kassi Ronquillo, MINE ANALYST [address] [place] [address] 11/02/2025 9:30 AM EDT Appointment Medical Office Building Cardiac Diagnostic Testing Medical Office Building Echo Lab [address] [facility], [address] [place] [address] 11/02/2025 11:00 AM EDT Office Visit [facility] [place] [address] [facility], [address] [place] [address] Ankita Vásquez PA [address] [place] [address] documented as of this encounter Procedures Procedure Name Priority Date/Time Associated Diagnosis Comments SODIUM, URINE, RANDOM Routine 11/17/2024 1:01 PM EDT Hyponatremia BASIC METABOLIC PANEL, PLASMA Routine 11/17/2024 1:01 PM EDT Hyponatremia documented in this encounter Results * Sodium, urine, random (11/17/2024 1:01 PM EDT) Sodium, Urine 86 mmol/L 11/17/2024 1:[address] [facility] Urine Urine specimen obtained by clean catch procedure / Unknown Non-blood Collection / Unknown 11/17/2024 1:01 PM EDT 11/17/2024 1:22 PM EDT us Dominguez Duffy MD LAB URINE ORDERABLES Final Resu lt [facility] [address] [place] [address] * (ABNORMAL) Basic Metabolic Panel, Plasma (11/17/2024 1:01 PM EDT) Glucose, Plasma 102(H) 74 - 99 mg/dL 11/17/2024 1:[address] [facility] BUN, Plasma 17 8 - 23 mg/dL 11/17/2024 1:[address] [facility] Creatinine, Plasma 1.00 0.60 - 1.10 mg/dL 11/17/2024 1:[address] [facility] BUN/Creatinine Ratio 17 11/17/2024 1:[address] [facility] Sodium, Plasma 135(L) 136 - 145 mmol/L 11/17/2024 1:[address] [facility] Potassium, Plasma 4.2 3.6 - 4.9 mmol/L 11/17/2024 1:[address] [facility] Chloride, Plasma 97 97 - 107 mmol/L 11/17/2024 1:[address] [facility] CO2, Plasma 23 22 - 29 mmol/L 11/17/2024 1:[address] [facility] Anion Gap 15 6 - 16 mmol/L 11/17/2024 1:[address] [facility] Total Calcium, Plasma 9.4 8.9 - 10.2 mg/dL 11/17/2024 1:[address] [facility] eGFRcr 56.4 mL/min/1.7 3m*2 11/17/2024 1:[address] [facility] Comment:Reported eGFRcr in m L/min/1.73m2 is based the CKD-EPI 2020 equation that does not use a race coefficient. Blood Venous blood specimen / Unknown Venipuncture / Unknown 11/17/2024 1:01 PM EDT 11/17/2024 1:08 PM EDT us Dominguez Duffy MD LAB BLOOD ORDERABLES Final Resu lt [facility] [address] [place] [address] documented in this encounter Visit Diagnoses Diagnosis Hyponatremia Hyposmolality and/or hyponatremia documented in this encounter Additional Health Concerns Assessment Noted Time PHQ-9 Depression Total Score: 0 11/03/19 25 2:01 PM EDT A fall risk assessment has been complete d for the patient 11/17/2024 11:03 AM EDT A Body Mass Index follow-up plan has been documented for the patient 11/01/2024 12:19 PM EDT documented as of this encounter Care Teams Spar Machine Operator Relationship Specialty Start Date End Date Onur Guerrero MD PCP - General Family Medicine 01/22/22 documented as of this encounter
--- OUTSIDE RECORDS SUMMARY | 2024-11-17 13:00 | XMS_ITS | Encounter Summary ---
Author Organization Healthcare Address [address] [place] [address] Care Team Providers Care Sql Consultant Name Role Phone Onur Guerrero MD Primary Care Provider Dyana vailable Reason for Visit * Reason Comments Follow-up Encounter Details Date Type Department Care Team (Latest Contact Info) Description 11/17/2024 1:00 PM EDT Office Visit [facility] Respiratory [address] [facility], 2nd [place] [address] Kassi Ronquillo, SUPERINTENDENT FACTORY [address] [place] [address] Status post transcatheter aortic valve replacement (Primary Dx); Encounter for monitoring cardiotoxic drug therapy; Essential hypertension; High risk medication use Social History Tobacco Use Types Packs/Day Years [...] Start Date 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 Not 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 Not on file Not on file Not on jessica e documented as of this encounter Last Filed Vital Signs Vital Sign Reading Time Taken Comments Blood Pressure 175/67 11/17/2024 12:53 PM EDT Pulse 58 11/17/2024 12:53 PM EDT Temperature - - Respiratory Rate - - Oxygen Saturation 96% 11/17/2024 10:59 AM EDT Inhaled Oxygen Concentration - - Weight 65.9 kg (145 lb 4.5 oz) 11/17/2024 11:04 AM EDT Height 157.5 cm (5' 2 ) 11/17/2024 11:04 AM EDT Body Mass Index 26.57 11/17/2024 11:04 AM EDT documented in this encounter Miscellaneous Notes * Clinician Note - Wily Loya RN - 11/17/2024 1:00 PM EDT CARDIO-ONCOLOGY SUMMARY REFERRING: Onur Shipman MD CURRENT ONCOLOGY DIAGNOSIS: Metastatic medullary thyroid carcinoma REASON FOR VISIT: follow up on HTN and SOA ONCOLOGY HISTORY: Diagnosed 2017 Underwent total thyroidectomy with right level 2 through 6 neck dissection on 04/01/2017 Disease recurrence 10/2019 undergoing a revision right modified radical neck dissection Disease progression 02/2021 deemed unresectable Initiated Vandetanib 06/2021 to present Underwent TAVR 10/21/2024 RISK STRATIFICATION: Essential hypertension Hyperlipidemia Borderline type 2 diabetes mellitus At risk for prolonged QT interval syndrome Nonrheumatic aortic valve insufficiency PAD CARDIAC TESTING COMPLETED: Echo scheduled 12/15/2024 Limited Echo 10/22/2024- appropriately positioned bioprosthetic AV, peak gradient 8 mmHg/ mean gradient 4 mmHg Limited Echo 10/21/2024- appropriately positioned bioprosthetic AV, peak gradient 11 mmHg/ mean gradient 5 mmHg Echo 08/17/2024- EF 55-60%, G I diastolic dysfunction, mild to moderate AR. Moderate peak gradient 56 mmHg/ mean gradient 31 mmHg, JOSE 1.1 cm2 24 Hr Amb BP monitor 06/18/2024- Avg BP 144/80, Avg awake BP 148/83, Avg sleeping BP 126/69 14 Day Patch 06/18/2024- Primary rhythm sinus bradycardia. Avg HR 57 bpm, Min HR 42 bpm, Max HR 137 bpm. SVE [place] 0.09%, SV Arrhythmias: no sustained arrhythmias noted, non sustained atrial runs- longest 19 beats. PVC [place] 0.01% Echo 06/13/2023- LVEF 64%, normal GLS, G I diastolic dysfunction, LA size mildly increased, mild to moderate AV regurgitations, mild - peak gradient 24 mmHg, mean gradient 12 mmHg, estimated JOSE 1.4cm2 14 Day Patch 03/11/2023- Primary rhythm was SR. Average HR 63 bpm, Minimum HR 46 bpm , Max HR 95 bpm. Rare SVE(s):[place] was 0.27 %. Frequent runs of SVT: 69 events, longest event 14 beats likely to be AT. Rare PVC(s): [place] was < 0.01 % CARDIAC MEDICATION: aspirin (ASPIRIN) 81 mg, Daily hydroCHLOROthiazide (HYDRODIURIL) 25 mg, Every morning NIFEdipine XL (PROCARDIA XL) 60 mg, Oral, Every evening, Do not crush, chew, or split. valsartan (DIOVAN) 320 mg, Oral, Daily * Progress Notes - Kasis Ronquillo, KARINA - 11/17/2024 1:00 PM EDT Images from the original note were not included. Cardio-Oncology Clinic CC: Chief Complaint Patient presents with Follow-up HPI: Ms.Olive Marya Guerrier is a 84 y.o. female w PMH HTN, CKD, metastatic medullary thyroid cancer, not deemed to be surgical candidate, currently on VEGFi/TKI (vandetanib), hyperlipidemia and now s/p TAVR seen today in the Cardio- Oncology Clinic @ [facility] for follow up on cardiac surveillance while on potential cardiotoxic drug therapy. Patient has no previously diagnosed cardiac conditions including coronary artery disease or congestive heart failure. She had an EKG done on February 21, 2023 which showed normal sinus rhythm, left axis deviation, LVH, septal infarct and possible lateral infarct. For the abnormal EKG the patient wasreferred to Cardiology. She was seen by Dr. Long in consultation on 06/13/23 at which time her anti-hypertensive's were adjusted and an echo was ordered for now for surveillance. Since last visit she had a TAVR on 10/21/2024, with a 23 mm Abida 3 ultra bioprosthetic valve performed by Dr. Kane Hidalgo. She tolerated well and her postop echo showed appropriately positioned transcatheter bioprosthetic valve with a trace paravalvular leak, peak gradient 8. Mean gradient 4 which is normal for this valve. No evidence of pericardial effusion. Patient comes in today for routine follow-up. Her blood pressure is quite elevated today however she reports that she checks it routinely at home. This morning it was 132/59 and yesterday 112/59. Sheusually checks it in her left arm and states that over the past 2 weeks it has been very well-controlled. She admits to some anxiety when she comes to the doctor's office. She has taken her medication today. She also sees Nephrology who has helped to manage her history of resistant hypertension. Since having the TAVR the patient reports that she feels significantly better. Her breathing has improved dramatically. She is able to climb stairs now and walk greater than 200 yd without having to stop. She is able to perform more activities without limited exertional shortness of breath. She denies chest pain. She does have some mild intermittent dizziness but no syncope or presyncope. She hasmild swelling in her feet but this is not a new problem and the swelling goes down when she elevates her legs. CARDIO-ONCOLOGY SUMMARY REFERRING: Onur Shipman MD CURRENT ONCOLOGY DIAGNOSIS: Metastatic medullary thyroid carcinoma REASON FOR VISIT: follow up on HTN and SOA ONCOLOGY HISTORY: Diagnosed 2017 Underwent total thyroidectomy with right level 2 through 6 neck dissection on 04/01/2017 Disease recurrence 10/2019 undergoing a revision right modified radical neck dissection Disease progression 02/2021 deemed unresectable Initiated Vandetanib 06/2021 to present Underwent TAVR 10/21/2024 RISK STRATIFICATION: Essential hypertension Hyperlipidemia Borderline type 2 diabetes mellitus At risk for prolonged QT interval syndrome Nonrheumatic aortic valve insufficiency PAD CARDIAC TESTING COMPLETED: Echo scheduled 12/15/2024 Limited Echo 10/22/2024- appropriately positioned bioprosthetic AV, peak gradient 8 mmHg/ mean gradient 4 mmHg Limited Echo 10/21/2024- appropriately positioned bioprosthetic AV, peak gradient 11 mmHg/ mean gradient 5 mmHg Echo 08/17/2024- EF 55-60%, G I diastolic dysfunction, mild to moderate AR. Moderate peak gradient 56 mmHg/ mean gradient 31 mmHg, JOSE 1.1 cm2 24 Hr Amb BP monitor 06/18/2024- Avg BP 144/80, Avg awake BP 148/83, Avg sleeping BP 126/69 14 Day Patch 06/18/2024- Primary rhythm sinus bradycardia. Avg HR 57 bpm, Min HR 42 bpm, Max HR 137 bpm. SVE [place] 0.09%, SV Arrhythmias: no sustained arrhythmias noted, non sustained atrial runs- longest 19 beats. PVC [place] 0.01% Echo 06/13/2023- LVEF 64%, normal GLS, G I diastolic dysfunction, LA size mildly increased, mild to moderate AV regurgitations, mild - peak gradient 24 mmHg, mean gradient 12 mmHg, estimated JOSE 1.4cm2 14 Day Patch 03/11/2023- Primary rhythm was SR. Average HR 63 bpm, Minimum HR 46 bpm , Max HR 95 bpm. Rare SVE(s):[place] was 0.27 %. Frequent runs of SVT: 69 events, longest event 14 beats likely to be AT. Rare PVC(s): [place] was < 0.01 % CARDIAC MEDICATION: aspirin (ASPIRIN) 81 mg, Daily hydroCHLOROthiazide (HYDRODIURIL) 25 mg, Every morning NIFEdipine XL (PROCARDIA XL) 60 mg, Oral, Every evening, Do not crush, chew, or split. valsartan (DIOVAN) 320 mg, Oral, Daily Review of symptoms 14 Point ROS reviewed and is otherwise negative except as per HPI and what is noted above. Past Medical History: Past Medical History: Diagnosis Date Anxiety GERD (gastroesophageal reflux disease) Hepatitis Hep C treated with interferon Hepatitis C High blood pressure Hyperparathyroid Liver disease Medullary thyroid carcinoma Sinus problem Surgical History: Past Surgical History: Procedure Laterality Date GALLBLADDER SURGERY HYSTERECTOMY NECK MASS EXCISION Right 11/02/2019 PARATHYROIDECTOMY TOTAL THYROIDECTOMY Bilateral 04/01/2017 WRIST SURGERY Left Medications: Current Outpatient Medications Medication Sig Dispense Refill ASPIRIN 81 MG chewable tablet Chew 1 tablet daily. calcitriol (Rocaltrol) 0.25 MCG capsule Take 2 capsules (0.5 mcg) by mouth daily. (Patient taking differently: Take 2 capsules by mouth 2 times a day.) 180 capsule 3 calcium carbonate (Tums Ultra) 1000 MG chewable tablet Chew 3 tablets 2 times a day. Caprelsa 100 MG chemo tablet Take 1 tablet (100 mg total) by mouth 1 (one) time each day. 30 [id number] escitalopram (Lexapro) 10 MG tablet Take 1 tablet by mouth nightly. hydroCHLOROthiazide (HYDRODiuril) 25 MG tablet Take 1 tablet by mouth every morning. levothyroxine (Synthroid, Levoxyl) 175 MCG tablet Take 1 tablet by mouth daily. 90 tablet 1 magnesium oxide (Mag-Ox) 400 (240 Mg) MG tablet Take 1 tablet by mouth every morning. Multiple Vitamins-Minerals (multivitamin with minerals) tablet Take 1 tablet by mouth every morning. NIFEdipine XL (Procardia XL) 60 MG 24 hr tablet Take 1 tablet by mouth every evening. Do not crush,chew, or split. 90 tablet 1 omeprazole (PriLOSEC) [address] capsule Take 1 capsule by mouth daily. valsartan (Diovan) 320 MG tablet Take 1 tablet by mouth daily. 90 tablet 1 No current facility-administered medications for this visit. Family History: family history includes Arthritis in her mother; Hearing loss in her brother; Heart Problem in her brother; Lung cancer in her brother and father; Prostate cancer in her brother; Stroke in her brother; ear tubes in her brother. Social History: reports that she has never smoked. She has never used smokeless tobacco. She reports that she does not drink alcohol and does not use drugs. Physical Exam: Visit Vitals BP (!) 160/68 Pulse 60 Ht 1.575 m (5' 2 ) Wt 65.9 kg (145 lb 4.5 oz) SpO2 96% BMI 26.57 kg/m?? Constitutional: Patient appears well, no acute distress; speaks without dyspnea Skin: No concerning lesions identified HENT: Anicteric JVP: no JVD Carotid: no bruit Cardiovascular: S1S2 heard, regular rate and rhythm; Grade 1/6 systolic murmer, no gallop appreciated Pulmonary: Clear to auscultation bilaterally Abdominal: Soft; no tenderness; no hepatomegaly; positive bowel sounds Extremities: Warm and well perfused; no edema Neurological: Alert and oriented X 3; no focal deficits appreciated Psychiatric: Normal mood and behavior Cardiac Testing: ECG today 11/17/24: NSR left axis deviation, RBBB ECG 03/11/2023: Normal sinus rhythm, left axis deviation, LVH, nonspecific ST-T changes TTE personally reviewed today by myself and Dr. Mercedes Dr. Arbune calculates peak gradient 70 mmHgand mean of 40 mmHg, Imaging: TTE 10/22/24: LVEF 60-70%, LV wall motion normal, appropriately positioned transcatheter bioprosthetic valve (23 mm Wang Abida). There is trace paravalvular leak. The peak gradient is 8 mmHg. The mean gradient is 4 mmHg. The gradient is normal for this prosthetic valve. mild mitral annular calcification. There is mild mitral regurgitation. There is no mitral stenosis. No pericardial effusion Labs: Lab Results Component Value Date HGB 12.1 11/02/2024 HCT 37.4 11/02/2024 PLT 192 11/02/2024 CHOL 174 03/11/2023 TRIG 129 03/11/2023 HDL 61 03/11/2023 LDLCALC 90 03/11/2023 ALT 19 11/02/2024 AST 23 11/02/2024 NA 131 (L) 11/02/2024 K 3.8 11/02/2024 CREATININE 0.93 11/02/2024 BUN 16 11/02/2024 CO2 19 (L) 11/02/2024 TSH 3.18 11/02/2024 HGBA1C 6.1 (H) 11/19/2023 Lab Results Component Value Date GLUCOSE 143 (H) 11/02/2024 CALCIUM 9.0 11/02/2024 NA 131 (L) 11/02/2024 K 3.8 11/02/2024 CO2 19 (L) 11/02/2024 CL 93 (L) 11/02/2024 BUN 16 11/02/2024 CREATININE 0.93 11/02/2024 Lab Results Component Value Date WBC 9.12 11/02/2024 HGB 12.1 11/02/2024 HCT 37.4 11/02/2024 MCV 83 11/02/2024 PLT 192 11/02/2024 Impression: Marya was seen today for follow-up. Diagnoses and all orders for this visit: Status post transcatheter aortic valve replacement Encounter for monitoring cardiotoxic drug therapy - ECG Adult (Now - Performed in your clinic) Essential hypertension High risk medication use Plan: Orders Placed This Encounter Procedures ECG Adult (Now - Performed in your clinic) Reason for Exam:: high risk med # Now s/p TAVR- continue ASA 81 mg daily Last echo showed well seated valve with acceptable gradients for this prosthetic valve #Pt on Vandetanib (VEGF TKI) Cardiotoxicity include risk for Qt prolongation and HTN EKG today without Qtc prolongation Plan: Doing well since TAVR Continue Nifedipine 60 mg daily and Valsartan 320 mg daily as prescribed. Continue hydrochlorothiazide She is being co-managed by nephrology in the resistant HTN clinic so we will defer management to them Keep BP log and record Follow up in about 6 months (around 05/20/2025). A total time of 33 minutes was spent by myself addressing the current illness, reviewing records (prior imaging, lab work, etc), and formulating a plan. The patient is agreeable to the plan and all pertinent questions were answered. Kassi Ronquillo APRN documented in this encounter Plan of Treatment Upcoming Encounters Date Type Department Care Team (Late st Contact Info) Description 01/28/2025 11:20 AM EDT Office Visit [facility] Nephrology, Bone & Mineral Metabolism [address] [facility], [address] [place] [address] Amanda Adams MD [address] [place] [address] 03/08/2025 1:30 PM EST Appointment [facility] Radiology [address] [place] [address] 03/08/2025 3:50 PM EST Office Visit [facility] Multidisciplinary Oncology Clinic [address] [place] [address] Vini Lord MD [address] [facility] [address] [place] [address] 05/18/2025 12:30 PM EST Clinical Support [facility] Head, Neck & Respiratory [address] [facility], 2nd [place] [address] 05/18/2025 1:00 PM EST Office Visit [facility] Head[facility] Neck & Respiratory [address] [facility], [address] [place] [address] Dominguez Duffy MD [address] [place] [address] 05/18/2025 1:40 PM EST Office Visit [facility] Head, Neck & Respiratory [address] [facility], [address]nd [place] [address] Kassi Ronquillo, SUPERINTENDENT FACTORY [address] [place] [address] 11/02/2025 9:30 AM EDT Appointment Medical Office Building Cardiac Diagnostic Testing Medical Office Building Echo Lab [address] [facility], [address] [place] [address] 11/02/2025 11:00 AM EDT Office Visit [facility] [place] [address] [facility], [address] [place] [address] Ankita Vásquez PA [address] [place] [address] documented as of this encounter Procedures Procedure Name Priority Date/Time Associated Diagnosis Comments ECG ADULT Routine 11/17/2024 1:04 PM EDT Encounter for monitoring cardiotoxic drug therapy documented in this encounter Results * ECG Adult (Now - Performed in your clinic) (11/17/2024 1:04 PM EDT) EKG DIAGNOSIS CLASS Abnormal MUSE ECG Ventricular Rate 63 BPM MUSE ECG Atrial Rate 63 BPM MUSE ECG TN Interval 164 ms MUSE ECG QRSD Interval 120 ms MUSE ECG QT Interval 462 ms MUSE ECG QTC Interval 472 ms MUSE ECG P Tow[place] 7 degrees MUSE ECG R [place] -36 degrees MUSE ECG T Wave [place] 13 degrees MUSE ECG Diagnosis Normal sinus rhythm MUSE ECG Diagnosis Left axis deviation MUSE ECG Diagnosis Right bundle branch block MUSE ECG Diagnosis Cannot rule out Lateral infarct , age undetermined MUSE ECG Diagnosis Abnormal ECG MUSE ECG Diagnosis MUSE ECG Diagnosis Confirmed by Fran Morgan ([id number]) on 11/17/2024 1:25:09 PM MUSE ECG 11/17/2024 1:04 PM EDT 11/17/2024 1:25 PM EDT us Kassi Ronquillo SUPERINTENDENT FACTORY ECG ORDERABLES Final Re sult MUSE ECG documented in this encounter Visit Diagnoses Diagnosis Status post transcatheter aortic valve replacement- Primary Encounter for monitoring cardiotoxic drug therapy Essential hypertension Unspecified essential hypertension High risk medication use documented in this encounter Additional Health Concerns Assessment Noted Time PHQ-9 Depression Total Score: 0 11/03/19 25 2:01 PM EDT A fall risk assessment has been complete d for the patient 11/17/2024 11:03 AM EDT A Body Mass Index follow-up plan has been documented for the patient 11/01/2024 12:19 PM EDT documented as of this encounter Care Teams Sql Consultant Relationship Specialty Start Date End Date Onur Guerrero MD PCP - General Family Medicine 01/22/22 documented as of this encounter
--- OUTSIDE RECORDS SUMMARY | 2024-12-15 10:38 | XMS_ITS | Encounter Summary ---
Author Organization [facility] Address [address] [place] [address] Care Team Providers Care Combiner Operator Name Role Phone Onur Guerrero MD Primary Care Provider Dyana vailable Reason for Referral * Imaging (Routine) - Closed Specialty Diagnoses / Procedures Referred By Contac t Referred To Contact Cardiology Diagnoses S/P TAVR (transcatheter aortic valve replacement) Procedures Echo, Adult Transthoracic Complete Ankita Vásquez PA [address] [place] [address] Phone: tel: fax: Referral ID Status Reason Start Date Expiration Date V isits Requested Visits Authorized [id number] Closed Perform Procedure 10/21/2024 04/22/2026 1 1 Reason for Visit * Imaging (Routine) - Closed Specialty Diagnoses / Procedures Referred By Contac t Referred To Contact Cardiology Diagnoses S/P TAVR (transcatheter aortic valve replacement) Procedures Echo, Adult Transthoracic Complete Ankita Vásquez PA [address] [place] [address] Phone: tel: fax: Referral ID Status Reason Start Date Expiration Date V isits Requested Visits Authorized [id number] Closed Perform Procedure 10/21/2024 04/22/2026 1 1 Encounter Details Date Type Department Care Team (Latest Contact Info) Description 12/15/2024 10:38 AM EDT - 12/15/2024 11:59 PM EDT Hospital Encounter Medical Office Building Cardiac Diagnostic Testing Medical Office Building Echo Lab [address] [place] [address] S/P TAVR (transcatheter aortic valve [...] 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 Date 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 Not on fi le [...] Upcoming Encounters Date Type Department Care Team ([facility] st Contact Info) Description 01/28/2025 11:20 AM EDT Office Visit [facility] Nephrology, Bone & Mineral Metabolism [address], [address] [place] [address] Amanda Adams MD [address] [facility] [address] [place] [address] 03/08/2025 1:30 PM EST Appointment [facility] Radiology [address] [place] [phone] 03/08/2025 3:50 PM EST Office Visit [facility] [address] [place] [phone] Vini Lord MD [address] [facility] [address] [place] [phone] 05/18/2025 12:30 PM EST Clinical Support [facility] [address] [facility] [place] [phone] 05/18/2025 1:00 PM EST Office Visit [facility] [address] [facility] [place] [phone] Dominguez Duffy MD [address] [facility] [address] [place] [address] 05/18/2025 1:40 PM EST Office Visit [facility] [address] [facility] [place] [phone] Kassi Ronquillo, [employer] [address] [place] [phone] 11/02/2025 9:30 AM EDT Appointment Medical Office Building Cardiac Diagnostic Testing Medical Office Building Echo Lab [address] , [address] [place] [phone] 11/02/2025 11:00 AM EDT Office Visit [facility] [place] [address] , [address] [place] [address] Ankita Vásquez, MICHAEL [address] [place] [address] documented as of this encounter [...] 68 % PASHA ISCV ESV(MOD-bp) 36 mL PASHA ISCV EF(MOD-bp) 61 % PASHA ISCV IVSd 10 mm PASHA ISCV LVIDd 47 mm PASHA ISCV LVPWd 9 mm PASHA ISCV LV MASS(C)D 153 g PASHA ISCV [facility] CV ECHO LV MASS INDEX 92 g/m2 PASHA ISCV LV RWT 0.40 mm PASHA ISCV LVIDs 37 mm APSHA ISCV LA dimension 35 mm PASHA ISCV [...] documented as of this encounter Care Teams Combiner Operator Relationship Specialty Start Date End Date Onur Guerrero MD PCP - General Family Medicine 01/22/22 documented as of this encounter
--- OUTSIDE RECORDS SUMMARY | 2024-12-15 12:30 | XMS_ITS | Encounter Summary ---
Author Organization Healthcare Address [address] 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 Not on file Not on jessica e documented as of this encounter Last Filed Vital Signs Vital Sign Reading Time Taken Comments Blood Pressure 175/65 12/15/2024 12:02 PM EDT Pulse 54 12/15/2024 12:02 PM EDT Temperature - - Respiratory Rate - - Oxygen Saturation 95% 12/15/2024 12:02 PM EDT Inhaled Oxygen Concentration - - Weight 69.1 kg (152 lb 5.4 oz) 12/15/2024 12:02 PM EDT Height 157.5 cm (5' 2 ) 12/15/2024 12:02 PM EDT Body Mass Index 27.86 12/15/2024 12:02 PM EDT documented in this encounter Functional [...] Patient does not drink 12/15/2024 12:03 PM EDT Payton Yancey Q3: How often do you have six or more drinks on one occasion? Never 12/15/2024 12:03 PM EDT Rosanna Yancey * Over the past 2 weeks, how often have you been bothered by any of the following problems? Question Answer Date of Assessment Author Little interest or pleasure in doing things Not at all 12/15/2024 12:01 PM EDT Rosanna Yancey Feeling down, depressed, or hopeless Not at all 12/15/2024 12:01 PM EDT Rosanna Yancey Patient Health Questionnaire -2 Score 0 12/15/2024 12:01 PM EDT Rosanna Yancey * Question Answer Date of Assessment Author Trouble falling or staying asleep, or sleeping too much Not at all 12/15/2024 12:01 PM EDT Payton Yancey Feeling tired or having yas le energy Not at all 12/15/2024 12:01 PM EDT Rosanna Yancey Poor appetite or overeating Not at all 12/15/2024 12 :01 PM EDT Payton Yancey Feeling bad about yourself - or that you are a failure or have let yourself or your family down Not at all 12/15/2024 12:01 PM EDT Payton Shipley Trouble concentrating on thi ngs, such as reading the newspaper or watching television Not at all 12/15/2024 12:01 PM EDT Rosanna Yancey Moving or speaking so slowly that other people could have noticed? Or the opposite - being so fidgety or restless that you have been moving around a lot more than usual. Not at all 12/15/2024 12:01 PM EDT Rosanna Yancey Thoughts that you would be better off or hurting yourself in some way Not at all 12/15/2024 12:01 PM EDT Manuelito Yancey Patient Health Questionnaire -9 Score 0 12/15/2024 12:01 PM EDT Rosanna Yancey * If you checked off any problems on this questionnaire so far, Question Answer Date of Assessment Author How difficult have these problems made it for you to do your work, take care of things at home, or get along with other people? Not difficult at all 12/15/2024 12:01 PM ERIKT Manuelito Yancey documented as of this encounter Miscellaneous Notes * Progress Notes - Ankita Vásquez PA - 12/15/2024 12:30 PM EDT Images from the original note were not included. Cardiology Clinic Note HPI Lin Guerrier is a 84 y.o. female who presents today for follow-up. Patient's medical history is significant for VHD with severe Aortic Stenosis, NYHA Class II-III heart failure, HTN, metastatic medullary thyroid cancer. She underwent TAVR on 10/21/24 with a 23mm Wang valve. She had an echo prior to today's visit. Today, patient states she is doing well. She is getting around easier since her TAVR and notes overall improvement in energy and breathing. She is participating in cardiac rehab which she feels is beneficial. Review of Systems 14 Point ROS reviewed and is otherwise negative except as per HPI. The following portions of the chart were reviewed this encounter and updated as appropriate: Tobacco Allergies Meds Problems Med Hx Surg Hx Fam Hx Objective Medications Current Medications[1] Physical Exam Visit Vitals BP (!) 175/65 Pulse 54 Ht 1.575 m (5' 2 ) Wt 69.1 kg (152 lb 5.4 oz) SpO2 95% BMI 27.86 kg/m?? Physical Exam Vitals and nursing note reviewed. Constitutional: Appearance: Normal appearance. HENT: Head: Normocephalic and atraumatic. Nose: Nose normal. Mouth/Throat: Mouth: Mucous membranes are moist. Eyes: Conjunctiva/sclera: Conjunctivae normal. Cardiovascular: Rate and Rhythm: Normal rate and regular rhythm. Pulses: Normal pulses. Heart sounds: S1 normal and S2 normal. Murmur heard. Systolic murmur is present with a grade of 2/6. Pulmonary: Effort: Pulmonary effort is normal. Breath [...] and Affect: Mood normal. Behavior: Behavior normal. Lab Review Lab Results Component Value Date BILITOT 0.5 11/02/2024 CALCIUM 9.4 11/17/2024 CO2 23 11/17/2024 CL 97 11/17/2024 CREATININE 1.00 11/17/2024 ALKPHOS 73 11/02/2024 K 4.2 11/17/2024 NA 135 (L) 11/17/2024 AST 23 11/02/2024 ALT 19 11/02/2024 BUN 17 11/17/2024 TRIG 129 03/11/2023 CHOL 174 03/11/2023 HDL 61 03/11/2023 WBC 9.12 11/02/2024 HGB 12.1 11/02/2024 HCT 37.4 11/02/2024 PLT 192 11/02/2024 MCV 83 11/02/2024 TSH 3.18 11/02/2024 BNP 496 10/21/2024 Assessment and Plan Problem List Items Addressed This Visit Essential hypertension Status post transcatheter aortic valve replacement - Primary #Aortic Stenosis --s/p TAVR with a 23mm Wang valve on 10/21/24 --Echo today shows no significant changes compared to post-operatively --NYHA Class II --Reports improvement overall post-TAVR --Repeat echo in 1 year #HTN --Elevated today --Works with Htn clinic is nephrology, recent medications changes --Continue to monitor at home, defer management to their team #Metastatic Medullary Thyroid CA --Followed by oncology Follow-up for 1 year post-TAVR visit with echo prior. I spent 32 minutes performing the following components of the encounter (on the day of the encounter): reviewing History, examining the patient, reviewing imaging and/or labs, Independently interpreting echocardiogram, ECG and/or other imaging results, counseling the patient and family/caregiver, and entering clinical information in the EHR. Greater than 50% of the time spent on the encounter wasface to face providing direct patient care, counseling for the patient/caregiver, and care coordination. Ankita Vásquez PA-C [1] Current Outpatient Medications Medication Sig Dispense Refill aMILoride (Midamor) 5 MG tablet Take 1 tablet by mouth daily. *Replaces hydrochlorothiazide* 30 tablet 5 ASPIRIN 81 MG chewable tablet Chew 1 tablet daily. calcitriol (Rocaltrol) 0.25 MCG capsule Take 2 capsules (0.5 mcg) by mouth daily. 180 capsule 3 calcium carbonate (Tums Ultra) 1000 MG chewable tablet Chew 3 tablets 2 times a day. Caprelsa 100 MG chemo tablet Take 1 tablet (100 mg total) by mouth 1 (one) time each day. 30 [id number] escitalopram (Lexapro) 10 MG tablet Take 1 [...] XL (Procardia XL) 30 MG 24 hr tablet Take 1 tablet by mouth every evening. Do not crush,chew, or split. 90 tablet 1 omeprazole (PriLOSEC) [address] capsule Take 1 capsule by mouth daily. valsartan (Diovan) 320 MG tablet Take 1 tablet by mouth daily. 90 tablet 1 No current facility-administered medications for this visit. documented in this encounter Plan of Treatment Upcoming Encounters Date Type Department Care Team ([facility] st Contact Info) Description 01/28/2025 11:20 AM EDT Office Visit [facility] Nephrology, Bone & Mineral Metabolism [address] [facility], [address] [place] [address] Amanda Adams MD [address] [facility] [address] [place] [address] 03/08/2025 1:30 PM EST Appointment [facility] [address] [place] [address] 03/08/2025 3:50 PM EST Office Visit [facility] [address] [place] [address] Vini Lord MD [address] [facility] [address] [place] [phone] 05/18/2025 12:30 PM EST Clinical Support [facility] [address] [facility], 2nd [place] [address] 05/18/2025 1:00 PM EST Office Visit [facility] [address] [facility], [address]nd [place] [address] Dominguez Duffy MD [address] [facility] [address] [place] [address] 05/18/2025 1:40 PM EST Office Visit [facility] [address] [facility], [address]nd [place] [address] Kassi Ronquillo, CONTROLS DESIGNER [address] [place] [address] 11/02/2025 9:30 AM EDT Appointment Medical Office Building Cardiac Diagnostic Testing Medical Office Building Echo Lab [address] [facility], [address] [place] [address] 11/02/2025 11:00 AM EDT Office Visit [facility] [place] [address] [facility], [address] [place] [address] Ankita Vásquez PA [address] [place] [address] documented as of this encounter Procedures Procedure Name Priority Date/Time Associated Diagnosis Comments ECG ADULT Routine 12/15/2024 12:07 PM EDT Status post transcatheter aortic valve replacement Essential hypertension documented in this encounter Results * ECG Adult (Now - Performed in your clinic) (12/15/2024 12:07 PM EDT) EKG DIAGNOSIS CLASS Abnormal MUSE ECG Ventricular Rate 52 BPM MUSE ECG Atrial Rate 52 BPM MUSE ECG MN Interval 138 ms MUSE ECG QRSD Interval 118 ms MUSE ECG QT Interval 500 ms MUSE ECG QTC Interval 465 ms MUSE ECG P Cadogan -18 degrees MUSE ECG R Cadogan -22 degrees MUSE ECG T Wave Cadogan 27 degrees MUSE ECG Diagnosis Sinus bradycardia with occasional premature ventricular complexes MUSE ECG Diagnosis Left ventricular hypertrophy with QRS widening ( R in aVL , Harrison product ) MUSE ECG Diagnosis Abnormal ECG MUSE ECG Diagnosis MUSE ECG Diagnosis Confirmed by Robert Hernandez ([id number]) on 12/15/2024 3:43:34 PM MUSE ECG 12/15/2024 12:0 7 PM EDT 12/15/2024 3:43 PM EDT us Ankita RODRIGUEZ ECG ORDERABLES Final R esult MUSE ECG documented in this encounter Visit Diagnoses Diagnosis Status post transcatheter aortic valve replacement- Primary Essential hypertension Unspecified essential hypertension documented in this encounter Additional Health Concerns Assessment Noted Time PHQ-9 Depression Total Score: 0 12/16/19 25 12:01 PM EDT A fall risk assessment has been complete d for the patient 12/15/2024 12:01 PM EDT A Body Mass Index follow-up plan has been documented for the patient 12/15/2024 12:34 PM EDT documented as of this encounter Care Teams Middle School Band Teacher Relationship Specialty Start Date End Date Onur Guerrero MD PCP - General Family Medicine 01/22/22 documented as of this encounter
--- OUTSIDE RECORDS SUMMARY | 2024-12-30 21:48 | XMS_ITS | Encounter Summary ---
Author Organization [facility] Address [address] [place] [address] Care Team Providers Care Estate And Trust Tax Principal Name Role Phone Sarina Lassiter APRN Primary Care Provider [phone]- [phone] Onur Guerrero MD Primary Care Provider Dyana vailable Laury Jerez LCSW Unavailable Unavailable Encounter Details Date Type Department Care Team (Late Contact Info) Description 05/03/2021 Orders Only External Location [address] [place] [address] Provider, External Social History Tobacco [...] Department Care Team (Late Contact Info) Description 01/28/2025 11:20 AM EDT Office Visit [facility] Nephrology, Bone & Mineral Metabolism [address] [facility], [address] [place] [address] Amanda Adams MD [address] [place] [address] [place] [address] 03/08/2025 1:30 PM EST Appointment [facility] Radiology [address] [place] [address] 03/08/2025 3:50 PM EST Office Visit [facility] [address] [place] [address] Vini Lord MD [address] [facility] [address] [place] [address] 05/18/2025 12:30 PM EST Clinical Support [facility]ck [facility] Respiratory [address] [facility], [address] [place] [address] 05/18/2025 1:00 PM EST Office Visit [facility] Res[facility] [address] [facility], [address]nd [place] [address] Dominguez Duffy MD [address] [facility] [address] [place] [address] 05/18/2025 1:40 PM EST Office Visit [facility]ck [facility] Respiratory [address] [facility], [address] [place] [phone] Kassi Ronquillo, TECHNICAL PROPOSAL WRITER [address] [place] [address] 11/02/2025 9:30 AM EDT Appointment Medical Office Building Cardiac Diagnostic Testing Medical Office Building Echo Lab [address] [facility], [address] [place] [address] 11/02/2025 11:00 AM EDT Office Visit [facility] [place] [address] [facility], [address] [place] [address] Ankita Vásquez PA [address] [place] [address] documented as of this encounter Procedures Procedure [...] documented as of this encounter Care Teams Estate And Trust Tax Principal Relationship Specialty Start Date End Date Sarina Lassiter APRN [address] [place] [address] PCP - General 09/08/20 01/21/22 Onur Guerrero MD [address] [place] [address] PCP - General Family Medicine 01/22/22 Laury Jerez, [place] [address] Shock Absorption Floor Layer Peripatologist 08/14/21 08/14/21 documented as of this encounter
--- OUTSIDE RECORDS SUMMARY | 2024-12-30 21:48 | XMS_ITS | Encounter Summary ---
Author Organization Healthcare Address [address] 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 Not on fi le [...] Description 01/28/2025 11:20 AM EDT Office Visit [facility] Nephrology, Bone & Mineral Metabolism [address] [facility], [address] [place] [address] Amanda Adams MD [address] [facility] [address] [place] [address] 03/08/2025 1:30 PM EST Appointment [facility] G Radiology [address] [place] [phone] 03/08/2025 3:50 PM EST Office Visit [facility] [address] [place] [phone] Vini Lord MD [address] [facility] [address] [place] [phone] 05/18/2025 12:30 PM EST Clinical Support [facility] Head[facility] Neck & Respiratory [address] [facility], 2nd [place] [address] 05/18/2025 1:00 PM EST Office Visit [facility] Head[facility] Neck [facility] Respiratory [address] [facility], [address]nd [place] [address] Dominguez Duffy MD [address] [place] [address] [address] [place] [address] 05/18/2025 1:40 PM EST Office Visit [facility] Head[facility] Neck [facility] Respiratory [address] [facility], [address]nd [place] [address] Kassi Ronquillo, DRUPAL PROGRAMMER [address] [place] [phone] 11/02/2025 9:30 AM EDT Appointment Medical Office Building Cardiac Diagnostic Testing Medical Office Building Echo Lab [address] [facility], [address] [place] [phone] 11/02/2025 11:00 AM EDT Office Visit [facility] [place] [address] [facility], [address] [place] [address] Ankita Vásquez PA [address] [place] [address] documented as of this encounter Procedures Procedure Name Priority Date/Time Associated Diagnosis Comments AP MISCELLANEOUS LAB TEST (SO) Routine 09/10/2021 12:00 AM EDT Malignant neoplasm of thyroid gland (CMS/HCC) documented in this encounter Results * - Miscellaneous Test (09/10/2021 12:00 AM EDT) Test name PA Profile-Ca ris 09/28/2021 9:31 AM EDT HEALTHCARE LAB Comment:[id number] Test Result see scan 09/28/2021 9:31 AM EDT [facility] PUBLIC HEALTH LAB See Scanned Result 09/28/2021 9:31 AM EDT [facility] Tissue 09/10/2021 09/10/2021 2:5 4 PM EDT us Onur Shipman MD LAB REF LAB BLOOD AND FLUID ORD Final Result [facility] PUBLIC [facility] HEALTHCARE LAB [address] [place] [address] documented in this encounter Visit Diagnoses Diagnosis Malignant neoplasm of thyroid gland (CMS/HCC) Malignant neoplasm of thyroid gland documented in this encounter Additional Health Concerns Assessment Noted Time A fall risk assessment has been complete d for the patient 08/21/2021 12:36 PM EDT documented as of this encounter Care Teams Timber Inspector Relationship Specialty Start Date End Date Sarina Lassiter APRN [address] [place] [address] PCP - General 09/08/20 01/21/22 Onur Guerrero MD [address] [place] [address] PCP - General Family Medicine 01/22/22 documented as of this encounter
--- OUTSIDE RECORDS SUMMARY | 2024-12-30 21:48 | XMS_ITS | Encounter Summary ---
Author Organization Healthcare Address [address] [place] [address] Care Team Providers Care Heat Treating Furnace Tender Name Role Phone LassiterSarina Bhavana COLLINS Primary Care Provider [phone]- [phone] Onur Guerrero MD Primary Care Provider Dyana vailable Laury Jerez JAILER/TRAINING OFFICER Unavailable Unavailable Encounter Details Date Type Department Care Team ([facility] Contact Info) Description 05/23/2021 Lab Requisition [facility] H Lab [address] [place] [address] Romelia Monroe MD [address] [place] [address] Nontoxic single thyroid nodule Social History Tobacco [...] Upcoming Encounters Date Type Department Care Team ([facility] Contact Info) Description 01/28/2025 11:20 AM EDT Office Visit Professional [facility] Nephrology, Bone & Mineral Metabolism [address], [address] [place] [address] Amanda Adams MD [address] [place] [address] 03/08/2025 1:30 PM EST Appointment [facility] G Radiology [address] [place] [address] 03/08/2025 3:50 PM EST Office Visit [facility] [address] [place] [address] Vini Lord MD [address] [facility] Katarina [facility] [address] [place] [address] 05/18/2025 12:30 PM EST Clinical Support [facility] Head[facility] Neck & Respiratory [address] [facility], 2nd [place] [address] 05/18/2025 1:00 PM EST Office Visit [facility] [address] [facility], [address]nd [place] [address] Dominguez Duffy MD [address] [facility] [address] [place] [address] 05/18/2025 1:40 PM EST Office Visit [facility] Head[facility] Respiratory [address] [facility], [address]nd [place] [address] Kassi Ronquillo, OPERATOR TECHNICIAN [address] [place] [address] 11/02/2025 9:30 AM EDT Appointment Medical Office Building Cardiac Diagnostic Testing Medical Office Building Echo Lab [address], [address] [place] [address] 11/02/2025 11:00 AM EDT Office Visit [facility] [place] [facility] [address], [address] [place] [address] Ankita Vásquez PA [address] [place] [address] documented as of this encounter Procedures Procedure Name Priority Date/Time Associated Diagnosis Comments CYTOLOGY CONSULT Routine 05/23/2021 10:3 6 AM EST Nontoxic single thyroid nodule documented in this encounter Results * Cytology Consult (05/23/2021 10:36 AM EST) Case Report Cytology Case: [id number] Authorizing Provider: Romelia Monroe MD Collected: 05/23/2021 1036 Ordering Location: [facility] Lab Received: 05/23/2021 1036 Pathologist: Jj Carrillo MD Specimen: Thyroid, [id number] 05/24/2021 2:49 PM EST [facility] Final Diagnosis OUTSIDE CASE [id number]; COLLECTED 05/02/21 MIDLINE STERNAL NOTCH, FINE NEEDLE ASPIRATION: - MEDULLARY THYROID CARCINOMA, SEE COMMENT. RIGHT NECK, LYMPH NODE, FINE NEEDLE ASPIRATION: - MEDULLARY THYROID CARCINOMA, SEE COMMENT. 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 Cell concentrates from both the midline sternal [...] few lymphocytes present. 05/24/2021 2:49 PM EST [facility] Clinical Information E04.1 - Nontoxic single thyroid nodule [ICD-10-CM] 05/24/2021 2:49 PM EST [facility] Gross Description A. CF22-40 For clinical data and diagnosis (A. Malignant B. Malignant) for this specimen (CF22-40/A. Sternal Notch, FNA B. Right Neck Lymph Node, FNA) see final report issued by [facility] Pathology Department. 05/24/2021 2:49 PM EST [facility] Note: A resident was involved in the service. I attest I examined the relevant preparations for the specimens and confirmed the diagnosis or interpretation. 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 documented in this encounter Additional Health Concerns Infection Onset Date Last Indicated Resolved Time COVID-19 Rule-Out 08/14/2021 08/14/2021 08/14/2021 3:07 PM EDT Assessment Noted Time A fall risk assessment has been complete d for the patient 05/21/2021 1:47 PM EST documented as of this encounter Care Teams Heat Treating Furnace Tender Relationship Specialty Start Date End Date Sarina Lassiter, OPERATOR TECHNICIAN [address] [place], [place] [id number] PCP - General 09/08/20 01/21/22 Onur Guerrero MD [address] [place] [address] PCP - General Family Medicine 01/22/22 Laury Jerez, [place] [address] Assistant Professor Of Education Industrial Truck Operator 08/14/21 08/14/21 documented as of this encounter
--- OUTSIDE RECORDS SUMMARY | 2024-12-30 21:48 | XMS_ITS | Clinical Summary ---
Author Organization [facility] Address [address] [place] [id number] Care Team Providers Care Public Area Attendant Name Role Phone Provider, No Known Primary Care Provider Unavail able Immunizations Immunization Administration Dates Next Due PPD Test 07/06/2018,08/30/2017,06/24/2016 Social History Tobacco Use Types Packs/Day Years Used Date Smoking Tobacco: Never Assessed Abuse Screen Answer Date Recorded Unsafe at Home or Work/School Not on file Feels Threatened by Someone? Not on file 12/2022 Does Anyone Keep You from Co ntacting Others or Doint Things Outside the Home? Not on file 02/03/2023 Physical Sign of Abuse Present Not on file 1 Housing Stability Answer Date Recorded Current Living Arrangements Not on file 12/2022 Potentially Unsafe Housing Conditions Not on jessica e 02/03/2023 Family and Community Support Answer Riley e Recorded Help with Day-to-Day Activities Not on file 02/03/2023 Lonely or Isolated Not on file 02/03/2023 Employment Answer Date Recorded Do you want help finding or keeping work or a kane b? Not on file 02/03/2023 Disabilities Answer Date Recorded Concentrating, Remembering, or Making Decisions Difficulty Not on file 02/03/2023 Doing Errands Independently Difficulty Not on fi le 02/03/2023 Education Answer Date Recorded Help with school or training? Not on file Preferred Language Not on file 02/03/2023 Comments Unknown Sex and Gender Information Value Date Recorded Sex Assigned at Not on file Legal Sex Female 11:44 AM EDT Gender Identity Not on file Sexual Orientation Not on file Plan of Treatment Health Maintenance Due Date Last Done Comments DXA SCAN 1942 TDAP/TD VACCINES (1 - Tdap) 1961 COLOGUARD 1987 COLON CANCER SCREENING 5 YEAR SIGMOIDOSCOPY 1987 COLONOSCOPY [address] CANCER SCREENING 1987 CT COLONOGRAPHY 1987 FECAL OCCULT BLOOD TEST 1987 FIT Testing (1 year) 1987 Pneumococcal Vaccine 50+ (1 of 1 - PCV) 01/21/1992 ZOSTER VACCINE (1 of 2) 01/21/1992 RSV Vaccine - Adults (1 - 1-dose 75+ series) 7 ANNUAL PHYSICAL 08/30/2017 COVID-19 Vaccine ( - season) 2024 INFLUENZA VACCINE 01/26/2025 Care Teams Public Area Attendant Relationship Specialty Start Date End Date Provider, [place] [address] PCP - General 06/24/16
--- OUTSIDE RECORDS SUMMARY | 2024-12-30 21:49 | XMS_ITS ---
Author Organization [facility] Address [address] [place] [address] Care Team Providers Care Switch Technician Name Role Phone Onur Guerrero MD Primary Care Provider Dyana vailable Active Problems Problem Noted Date Diagnosed Date Encounter for monitoring cardiotoxic drug therap y 11/17/2024 Status post transcatheter aortic valve replaceme nt [...]
--- OUTSIDE RECORDS SUMMARY | 2024-12-30 21:49 | XMS_ITS | Encounter Summary ---
Author Organization Healthcare Address [address] 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 Not on jessica e documented as of this encounter Plan of Treatment Upcoming Encounters Date Type Department Care Team (Late st Contact Info) Description 01/28/2025 11:20 AM EDT Office Visit Professional [facility] Nephrology, Bone & Mineral Metabolism [address] [facility] [address], [address] [place] [address] Amanda Adams MD [address] [facility] [facility] [address] [facility] [address] [place] [address] 03/08/2025 1:30 PM EST Appointment [facility] G Radiology [address] [place] [address] 03/08/2025 3:50 PM EST Office Visit [facility] [address] [place] [address] Vini Lord MD [address] [facility] [address] [place] [address] 05/18/2025 12:30 PM EST Clinical Support [facility] Head[facility] Neck [facility] Respiratory [address] [facility], 2nd [place] [address] 05/18/2025 1:00 PM EST Office Visit [facility] Head[facility]ck [facility] Respiratory [address] [facility], 2nd [place] [address] Dominguez Duffy MD [address] [facility] [address] [place] [address] 05/18/2025 1:40 PM EST Office Visit [facility] Head[facility] Neck & Respiratory [address] [facility], 2nd [place] [address] Kassi Ronquillo, AUDIOLOGY ASSISTANT [address] [place] [address] 11/02/2025 9:30 AM EDT Appointment Medical Office Building Cardiac Diagnostic Testing Medical Office Building Echo Lab [address] [facility], [address] [place] [address] 11/02/2025 11:00 AM EDT Office Visit [facility] [place] [address] [facility], [address] [place] [address] Ankita Vásquez PA [address] [place] [address] documented as of this encounter [...] documented as of this encounter Care Teams Senior Mobile Developer Relationship Specialty Start Date End Date Onur Guerrero MD PCP - General Family Medicine 01/22/22 documented as of this encounter
--- OUTSIDE RECORDS SUMMARY | 2024-12-30 21:49 | XMS_ITS | Encounter Summary ---
Author Organization Healthcare Address [address] 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 Not on jessica e documented as of this encounter Plan of Treatment Upcoming Encounters Date Type Department Care Team (Late st Contact Info) Description 01/28/2025 11:20 AM EDT Office Visit [facility] Nephrology, Bone & Mineral Metabolism [address], [address] [place] [address] Amanda Adams MD [address] [place] [address] 03/08/2025 1:30 PM EST Appointment [facility] G Radiology [address] [place] [address] 03/08/2025 3:50 PM EST Office Visit [facility] [address] [place] [address] Vini Lord MD [address] [facility] Katarina Zarate [facility] [address] [place] [address] 05/18/2025 12:30 PM EST Clinical Support [facility] Head, Neck & Respiratory [address] [facility], 2nd [place] [address] 05/18/2025 1:00 PM EST Office Visit [facility] Head[facility] Neck & Respiratory [address] [facility], 2nd [place] [address] [place] [address] [place] [address] [address] [place] [address] 05/18/2025 1:40 PM EST Office Visit [facility] Head[facility] Neck & Respiratory [address] [facility], 2nd [place] [address] Kassi Ronquillo, CLINICAL DATA PROGRAMMER [address] [place] [address] 11/02/2025 9:30 AM EDT Appointment Medical Office Building Cardiac Diagnostic Testing Medical Office Building Echo Lab [address] [facility] [place] [address] 11/02/2025 11:00 AM EDT Office Visit [facility] [place] [address] [facility], [address] [place] [address] Ankita Vásquez PA [address] [place] [address] documented as of this encounter [...] documented as of this encounter Care Teams Procedure Manager Relationship Specialty Start Date End Date Onur Guerrero MD PCP - General Family Medicine 01/22/22 documented as of this encounter
--- OUTSIDE RECORDS SUMMARY | 2024-12-30 21:49 | XMS_ITS | Encounter Summary ---
Author Organization Healthcare Address [address] 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 See note from Dr Duffy. Ms Guerrier said she will drink 3.5 bottles of water a day. No further questions documented in this encounter Plan of Treatment Upcoming Encounters Date Type Department Care Team (Late st Contact Info) Description 01/28/2025 11:20 AM EDT Office Visit [facility] Nephrology, Bone & Mineral Metabolism [address] [facility] [place] [address] Amanda Adams MD [address] [facility] [address] [place] [address] 03/08/2025 1:30 PM EST Appointment [facility] Radiology [address] [place] [address] 03/08/2025 3:50 PM EST Office Visit [facility] [address] [place] [address] Vini Lord MD 800 [facility] [address] [place] [address] 05/18/2025 12:30 PM EST Clinical Support [facility] Head, Neck & Respiratory [address] [facility], 2nd [place] [address] 05/18/2025 1:00 PM EST Office Visit [facility] Head, Neck & Respiratory [address] [facility] 2nd [place] [address] Dominguez Duffy MD [address] [facility] [address] [place] [address] 05/18/2025 1:40 PM EST Office Visit [facility] Head[facility] Neck & Respiratory [address] [facility], [address]nd [place] [address] Kassi Ronquillo, KARINA [address] [place] [address] 11/02/2025 9:30 AM EDT Appointment Medical Office Building Cardiac Diagnostic Testing Medical Office Building Echo Lab [address] [facility] [place] [address] 11/02/2025 11:00 AM EDT Office Visit [facility] [place] [address] [facility], [address] [place] [address] Ankita Vásquez PA [address] [place] [address] documented as of this encounter Visit [...] documented as of this encounter Care Teams Allergist/Immunologist Physician Relationship Specialty Start Date End Date Onur Guerrero MD PCP - General Family Medicine 01/22/22 documented as of this encounter
--- OUTSIDE RECORDS SUMMARY | 2024-12-30 21:49 | XMS_ITS | Encounter Summary ---
Author Organization Healthcare Address [address] 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 Pls advise of my message. TY. * Result Encounter Note - Dominguez Dfufy MD - 11/17/2024 6:27 PM EDT Serum sodium 135, borderline low but improved and Urine sodium is high. Recommend to decrease the water intake from 4 bottles (this is what she reported drinking) to 3.5 or 3 per day. documented in this encounter Plan of Treatment Upcoming Encounters Date Type Department Care Team ([facility] st Contact Info) Description 01/28/2025 11:20 AM EDT Office Visit [facility] Nephrology, Bone & Mineral Metabolism [address] [facility], [address] [place] [address] Amanda Adams MD [address] [facility] [address] [place] [address] 03/08/2025 1:30 PM EST Appointment [facility] Radiology [address] [place] [address] 03/08/2025 3:50 PM EST Office Visit [facility] [address] [place] [address] Vini Lord MD [address] [facility] [address] [place] [address] 05/18/2025 12:30 PM EST Clinical Support [facility] Head[facility] Neck & Respiratory [address] [facility], 2nd [place] [address] 05/18/2025 1:00 PM EST Office Visit [facility] Head[facility] Neck & Respiratory [address] [facility], 2nd [place] [address] Dominguez Duffy MD [address] [facility] [address] [place] [address] 05/18/2025 1:40 PM EST Office Visit [facility] Head[facility] Neck & Respiratory [address] [facility], 2nd [place] [address] Kassi Ronquillo, FOOD SERVICE HELPER [address] [place] [address] 11/02/2025 9:30 AM EDT Appointment Medical Office Building Cardiac Diagnostic Testing Medical Office Building Echo Lab [address] [facility], [address] [place] [address] 11/02/2025 11:00 AM EDT Office Visit [facility] [place] [address] [facility], [address] [place] [address] Ankita Vásquez PA [address] [place] [address] documented as of this encounter [...] documented as of this encounter Care Teams Tankroom Worker Relationship Specialty Start Date End Date Onur Guerrero MD PCP - General Family Medicine 01/22/22 documented as of this encounter
--- OUTSIDE RECORDS SUMMARY | 2024-12-30 21:49 | XMS_ITS | Clinical Summary ---
Author Organization [facility] Address [address] [place] [address] Care Team Providers Care Utility System Operator Name Role Phone Onur Guerrero MD [...] a day. 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 30 tablet 11 03/09/20 24 025 Active magnesium oxide (Mag-Ox) 400 (240 Mg) MG tablet Take 1 tablet by mouth every morning. 06/14/19 25 Active calcitriol (Rocaltrol) 0.25 MCG capsuleIndications:Pos tsurgical hypoparathyroidism (CMS/HCC) Take 2 capsules (0.5 mcg) by mouth daily. 180 capsule 3 07/07/19 25 026 Active valsartan (Diovan) 320 MG tabletIndications:Esse ntial hypertension Take 1 tablet by mouth daily. 90 tablet 1 07/22/19 25 Active hydroCHLOROthiazide (HYDRODiuril) 25 MG tablet Take 1 tablet by mouth every morning. Active levothyroxine (Synthroid, Levoxyl) 175 MCG tablet Take 1 tablet by mouth daily. 90 tablet 1 11/16/19 25 Active NIFEdipine XL (Procardia XL) 30 MG 24 hr tabletIndications:Esse ntial hypertension Take 1 tablet by mouth every evening. Do not crush, chew, or split. 90 tablet 1 11/27/19 25 Active aMILoride (Midamor) 5 MG tabletIndications:Othe r secondary hypertension,Hypomagne semia Take 1 tablet by mouth daily. *Replaces hydrochlorot hiazide* 30 tablet 5 12/11/19 25 Active Active Problems Problem Noted Date Diagnosed Date [...] Encounters Date Type Department Care Team Description 12/15/2024 12:30 PM EDT Office Visit [facility] [place] [address], [address] [place] [address] Ankita Vásquez PA Status post transcatheter aortic valve replacement (Primary Dx); Essential hypertension 12/15/2024 10:38 AM EDT - 12/15/2024 11:59 PM EDT Hospital Encounter Medical Office Building Cardiac Diagnostic Testing Medical Office Building Echo Lab [address], [address] [place] [address] S/P TAVR (transcatheter aortic valve replacement) Discharge Disposition: Home or Self Care 12/15/2024 Travel 11/18/2024 Telephone [facility] [address] [facility], 2nd [place] [address] Milagros Perry RN 11/17/2024 1:00 PM EDT Office Visit [facility] [address] [phone] Kassi Ronquillo APRN Status post transcatheter aortic valve replacement (Primary Dx); Encounter for monitoring cardiotoxic drug therapy; Essential hypertension; High risk medication use 11/17/2024 11:45 AM EDT Clinical Support [facility] [address] [phone] Hyponatremia 11/17/2024 11:00 AM EDT Office Visit [facility] [address] [phone] Dominguez Duffy MD Postoperative hypothyroidism (Primary Dx); Postsurgical hypoparathyroidism (CMS/HCC); Hyponatremia; Medullary carcinoma of thyroid, isolated; Essential hypertension; Hyperglycemia 11/17/2024 Results Follow-Up [facility] [address] [address] Dominguez Duffy MD 11/17/2024 Travel 11/15/2024 Refill [facility] [address] [place] [phone] Dominguez Duffy MD 11/04/2024 Orders Only [facility] [address] [place] [phone] Vini Lord MD Medullary carcinoma of thyroid, isolated (Primary Dx) 11/02/2024 2:50 PM EDT Office Visit [facility] [address] [place] [phone] Vini Lord MD Medullary carcinoma of thyroid, isolated (Primary Dx); 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) 11/02/2024 10:21 AM EDT - 11/02/2024 11:59 PM EDT Hospital Encounter [facility] [address] [place] [address] Medullary carcinoma of thyroid, isolated Discharge Disposition: Home or Self Care 11/02/2024 Travel 10/27/2024 1:40 PM EDT Office Visit [facility] [place] [facility] Mineral Metabolism [address], [address] [place] [address] Amanda Adams MD CKD (chronic kidney disease) stage 2, GFR 60-89 ml/min (Primary Dx); Other secondary hypertension 10/27/2024 Travel 10/27/2024 Orders Only [facility] [address] [place] [address] Vini Lord MD 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) (Primary Dx) 10/22/2024 Travel 10/21/2024 12:43 PM EDT Anesthesia Event [facility] [address] [place] [address] Yong Agudelo MD Cline, David D, 10/21/2024 12:00 PM EDT - 10/21/2024 2:30 PM EDT Surgery [facility]iac [facility] [address] [place] [address] Kane Hidalgo MD TAVR [[id number] (CPT )] 10/21/2024 10:10 AM EDT - 10/22/2024 12:18 PM EDT Hospital Encounter [facility] Inpatient [address] [place] [address] Kane Hidalgo MD Nonrheumatic aortic valve stenosis Discharge Disposition: Home or Self Care 10/21/2024 Travel from Last 3 Months Immunizations Immunization Administration Dates Next Due Influenza, High-dose, Split Virus, Trivalent, Injectable, preservative free 02/13/2024 Influenza, high-dose, quadrivalent 02/12/2023, Influenza, injectable, MDCK, preservative free, quadrivalent 02/02/2020 Influenza, injectable, quadr ivalent, preservative free 01/26/2021 PPD Skin Test (TB Skin Test) 07/06/2018,08/31/19 18,06/24/2016 TD (adult), 2 Lf tetanus tox oid, [...] Start Date Job End Date 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 Not on file Not on fi le 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 Not on file Not on jessica e Last Filed Vital Signs Vital Sign Reading Time Taken Comments Blood Pressure 175/65 12/15/2024 12:02 PM EDT Pulse 54 12/15/2024 12:02 PM EDT Temperature 36.4 C (97.5 F) 11/17/2024 10:59 AM EDT Respiratory Rate 16 11/17/2024 10:59 AM EDT Oxygen Saturation 95% 12/15/2024 12:02 PM EDT Inhaled Oxygen Concentration - - Weight 69.1 kg (152 lb 5.4 oz) 12/15/2024 12:02 PM EDT Height 157.5 cm (5' 2 ) 12/15/2024 12:02 PM EDT Body Mass Index 27.86 12/15/2024 12:02 PM EDT Plan of Treatment Upcoming Encounters Date Type Department Care Team (Late st Contact Info) Description 01/28/2025 11:20 AM EDT Office Visit [facility] Nephrology, Bone & Mineral Metabolism [address], [address] [place] [address] Amanda Adams MD [address] [place] [phone] 03/08/2025 1:30 PM EST Appointment [facility] [address] [place] [phone] 03/08/2025 3:50 PM EST Office Visit [facility] [address] [place] [address] Vini Lord MD 800 [facility] [address] [place] [phone] 05/18/2025 12:30 PM EST Clinical Support [facility] [address] [facility], 2nd [place] [phone] 05/18/2025 1:00 PM EST Office Visit [facility] [address] [facility], [address] [place] [phone] Dominguez Duffy MD [facility] [address] [place] [phone] 05/18/2025 1:40 PM EST Office Visit [facility] [address] [facility] [place] [phone] Kassi Ronquillo, RELIGIOUS EDUCATION DIRECTOR [address] [place] [address] 11/02/2025 9:30 AM EDT Appointment Medical Office Building Cardiac Diagnostic Testing Medical Office Building Echo Lab [address], [address] [place] [address] 11/02/2025 11:00 AM EDT Office Visit [facility] [place] [address], [address] [place] [address] Ankita Vásquez PA [address] [place] [address] Health Maintenance Due Date Last Done Comments [facility]-Bone Density Scan 1940 [facility]-Medicare Annual Wellness (AWV) 1940 [facility]-Infant/Child/Adol SDOH Screenings 1940 [facility]- SDOH Screenings 01/21/1960 [facility]-Adult SDOH Screenings 01/21/1960 [facility]-Hepatitis A Vaccines (1 of 2 - Risk 2-dose series) 1961 [facility]-Pneumococcal Vaccine: 50+ Years (1 of 2 - PCV) 1961 [facility]-Zoster Vaccines (1 of 2) 1961 [facility]-DTaP,Tdap,and Td Vaccines (1 - Tdap) 07/01/1996 06/30/1996 [facility]-RSV Vaccine: 60+ Years or (1 - 1-dose 75+ series) 2017 [id number] Vaccine (4 - season) 2024 02/22/2021, 06/29/2020, 06/01/2020 [facility]-Influenza Vaccine (#1) 12/27/202402/12, 02/12/2023, 02/11/2022, Additional history exists [facility]-Depression Screening 12/15/2025 025, 12/15/2024, 07/21/2023 [facility]-Diabetes: Hemoglobin A1C Discontinued 11/19/2023 [facility]-Obesity Intervention Completed 025, 10/27/2024, 09/09/2024, Additional history exists HPV Vaccines Aged Out [...] this topic Medical Devices Implanted Type Area Ui Architect Device Identifier Shelf Expiration Date Model / Serial / Lot Valve Kit Abida 3 Ultra Tavr 23mm - [id number] Implanted:Qty: 1 on 10/21/2024 by Kane Hidalgo MD at [facility]-[id number] 05/10/2027 [id number] / / [id number] Procedures Procedure Name Priority Date/Time Associated Diagnosis Comments ECG ADULT Routine 12/15/2024 12:07 PM EDT Status post transcatheter aortic valve replacement Essential hypertension ECHO, ADULT TRANSTHORACIC COMPLETE Routine 12/15/2024 11:47 AM EDT S/P TAVR (transcatheter aortic valve replacement) ECG ADULT Routine 11/17/2024 1:04 PM EDT Encounter for monitoring cardiotoxic drug therapy SODIUM, URINE, RANDOM Routine 11/17/2024 1:01 PM EDT Hyponatremia BASIC METABOLIC PANEL, PLASMA Routine 11/17/2024 1:01 PM EDT Hyponatremia MORPHOLOGY Routine 11/02/2024 1:57 PM EDT Metastatic [...] W/O DIFFERENTIAL STAT 10/21/2024 10:41 AM EDT HEMOGLOBIN A1C Routine 11/19/2023 4:15 PM EDT Hyperglycemia from Last 3 Months or Most Recently Relevant to Health Maintenance Results * ECG Adult (Now - Performed in your clinic) (12/15/2024 12:07 PM EDT) Only the most recent of5 resultswithin the time period is included. EKG DIAGNOSIS CLASS Abnormal MUSE ECG Ventricular Rate 52 BPM MUSE ECG Atrial Rate 52 BPM MUSE ECG SD Interval 138 ms MUSE ECG QRSD Interval 118 ms MUSE ECG QT Interval 500 ms MUSE ECG QTC Interval 465 ms MUSE ECG P Wilson -18 degrees MUSE ECG R Wilson -22 degrees MUSE ECG T Wave Wilson 27 degrees MUSE ECG Diagnosis Sinus bradycardia with occasional premature ventricular complexes MUSE ECG Diagnosis Left ventricular hypertrophy with QRS widening ( R in aVL , [place] product ) MUSE ECG Diagnosis Abnormal ECG MUSE ECG Diagnosis MUSE ECG Diagnosis Confirmed by Robert Hernandez ([id number]) on 12/15/2024 3:43:34 PM MUSE ECG 12/15/2024 12:0 7 PM EDT 12/15/2024 3:43 PM EDT us Ankita RODRIGUEZ ECG ORDERABLES Final R esult MUSE ECG * ECHO, ADULT TRANSTHORACIC COMPLETE (12/15/2024 11:47 [...] 6.8 mmHg PASHA ISCV AV-pr VR 0.5 PASAH ISCV Ao V2 mean 165.0 cm/s PASHA ISCV RVSP 13 mmHg PASHA ISCV RAP systole 3 mmHg PASHA ISCV LAV(MOD-2ch) 64 mL PASHA ISCV TAPSE 28 mm PASHA ISCV RV s' Lawrence 16.5 cm/s PASHA ISCV RA MOD 4Ch 28 mL PASHA ISCV TEMO 17 mL/m2 PASHA ISCV RV base 33 mm PASHA ISCV RV Mid 28 mm APSHA ISCV LV EDV(MOD-2ch) 80 mL PASHA ISCV [...] us Ankita RODRIGUEZ CV ECHO PROCEDURES Vickie jason Result * Sodium, urine, random (11/17/2024 1:01 PM EDT) Sodium, Urine 86 mmol/L 11/17/2024 1:41 PM EDT [facility] Urine Urine specimen obtained by clean catch procedure / Unknown Non-blood Collection / Unknown 11/17/2024 1:01 PM EDT 11/17/2024 1:22 PM EDT us Dominguez Duffy MD LAB URINE ORDERABLES Final Resu lt [facility] [address] [place] [address] * (ABNORMAL) Basic Metabolic Panel, Plasma (11/17/2024 1:01 PM EDT) Only the most recent of4 resultswithin the time period is included. Glucose, Plasma 102(H) 74 - 99 mg/dL 11/17/2024 1:36 PM EDT [facility] BUN, Plasma 17 8 - 23 mg/dL 11/17/2024 1:36 PM EDT [facility] Creatinine, Plasma 1.00 0.60 - 1.10 mg/dL 11/17/2024 1:36 PM EDT [facility] BUN/Creatinine Ratio 17 11/17/2024 1:36 PM EDT [facility] Sodium, Plasma 135(L) 136 - 145 mmol/L 11/17/2024 1:36 PM EDT [facility] Potassium, Plasma 4.2 3.6 - 4.9 mmol/L 11/17/2024 1:36 PM EDT [facility] Chloride, Plasma 97 97 - 107 mmol/L 11/17/2024 1:36 PM EDT [facility] CO2, Plasma 23 22 - 29 mmol/L 11/17/2024 1:36 PM EDT [facility] Anion Gap 15 6 - 16 mmol/L 11/17/2024 1:36 PM EDT [facility] Total Calcium, Plasma 9.4 8.9 - 10.2 mg/dL 11/17/2024 1:36 PM EDT [facility] eGFRcr 56.4 mL/min/1.7 3m*2 11/17/2024 1:36 PM EDT [facility] Comment:Reported eGFRcr in m L/min/1.73m2 is based the CKD-EPI 2020 equation that does not use a race coefficient. Blood Venous blood specimen / Unknown Venipuncture / Unknown 11/17/2024 1:01 PM EDT 11/17/2024 1:08 PM EDT us Dominguez Duffy MD LAB BLOOD ORDERABLES Final Resu lt [facility] [address] [place] [address] * Morphology (11/02/2024 1:57 PM EDT) RBC Morphology Slide Reviewed LAB HEMATOLOGY METHOD 11/02/2024 3:00 PM EDT [facility] Clumped Platelets Present LAB HEMATOLOGY METHOD 11/02/2024 3:00 PM EDT [facility] Blood Venous blood specimen / Unknown Venipuncture / Unknown 11/02/2024 1:57 PM EDT 11/02/2024 2:19 PM EDT us Vini Lord MD LAB BLOOD ORDERABLES Final R esult Performing Organization Address City/[facility]/ZIP Co de Phone Number [facility] [address] [place] [address] * (ABNORMAL) Calcitonin (11/02/2024 1:57 PM EDT) Pathologist [facility] Calcitonin 638.0(H) 0.0 - 5.1 pg/mL 11/04/2024 4:37 PM EDT [facility]) Blood Venous blood specimen / Unknown Venipuncture / Unknown 11/02/2024 1:57 PM EDT 11/02/2024 2:48 PM EDT Narrative [facility]) - 11/04/2024 4:37 PM EDT INTERPRETIVE INFORMATION: [...] or absence of malignant disease. Performed By: [facility] [address] [place] [address] Blood Bank Laboratory Professional: Frederick Rincon MD, PhD CLIA Number: [id number] Vini Lord MD LAB BLOOD ORDERABLES Final R esult [facility]) [address] [place] [address] * (ABNORMAL) CBC and differential (11/02/2024 1:57 PM EDT) [facility] WBC Count 9.12 3.70 - 10.30 10*3/uL LAB HEMATOLOGY METHOD 11/02/2024 3:00 PM EDT [facility] RBC Count 4.53 3.90 - 5.20 10*6/uL LAB HEMATOLOGY METHOD 11/02/2024 3:00 PM EDT [facility] HGB 12.1 11.2 - 15.7 g/dL LAB HEMATOLOGY METHOD 11/02/2024 3:00 PM EDT [facility] HCT 37.4 34.0 - 45.0 % LAB HEMATOLOGY METHOD 11/02/2024 3:00 PM EDT [facility] Platelet Count 192 155 - 369 10*3/uL LAB HEMATOLOGY METHOD 11/02/2024 3:00 PM EDT [facility] MCV 83 79 - 98 fL LAB HEMATOLOGY METHOD 11/02/2024 3:00 PM EDT [facility] Comment:Not Measured. MCH 26.7 26.0 - 32.0 pg LAB HEMATOLOGY METHOD 11/02/2024 3:00 PM EDT [facility] Comment:Not Measured MCHC 32.4 30.7 - 35.5 g/dL LAB HEMATOLOGY METHOD 11/02/2024 3:00 PM EDT [facility] Comment:Not Measured RDW 17.0(H) 11.5 - 14.5 % LAB HEMATOLOGY METHOD 11/02/2024 3:00 PM EDT [facility] Comment:Not Measured. MPV LAB HEMATOLOGY METHOD 11/02/2024 3:00 [facility] Comment:Not Measured nRBC 0.0 <=0.0 per 100 WBCs LAB HEMATOLOGY METHOD 11/02/2024 3:00 PM EDT [facility] Differential Type Automated LAB HEMATOLOGY METHOD 11/02/2024 3:00 PM EDT [facility] Neutrophils % 76 % LAB HEMATOLOGY METHOD 11/02/2024 3:00 PM EDT [facility] Lymphocytes % 16 % LAB HEMATOLOGY METHOD 11/02/2024 3:00 PM EDT [facility] Monocytes % 5 % LAB HEMATOLOGY METHOD 11/02/2024 3:00 PM EDT [facility] Eosinophils % 1 % LAB HEMATOLOGY METHOD 11/02/2024 3:00 PM EDT [facility] Basophils % 1 % LAB HEMATOLOGY METHOD 11/02/2024 3:00 PM EDT [facility] Immature Granulocytes % 1 % LAB HEMATOLOGY METHOD 11/02/2024 3:00 PM EDT [facility] Neutrophils Absolute 7.01(H) 1.60 - 6.10 10*3/uL LAB HEMATOLOGY METHOD 11/02/2024 3:00 PM EDT [facility] Lymphocytes Absolute 1.47 1.20 - 3.90 10*3/uL LAB HEMATOLOGY METHOD 11/02/2024 3:00 PM EDT [facility] Monocytes Absolute 0.46 0.30 - 0.90 10*3/uL LAB HEMATOLOGY METHOD 11/02/2024 3:00 PM EDT [facility] Eosinophils Absolute 0.07 0.00 - 0.50 10*3/uL LAB HEMATOLOGY METHOD 11/02/2024 3:00 PM EDT [facility] Basophils Absolute 0.05 0.00 - 0.10 10*3/uL LAB HEMATOLOGY METHOD 11/02/2024 3:00 PM EDT [facility] Immature Granulocytes Absolute 0.06 0.00 - 0.06 10*3/uL LAB HEMATOLOGY METHOD 11/02/2024 3:00 PM EDT [facility] Blood Venous blood specimen / Unknown Venipuncture / Unknown 11/02/2024 1:57 PM EDT 11/02/2024 2:19 PM EDT Narrative [facility] - 11/02/2024 3:00 PM EDT Therapeutic decision making should be based on absolute values, rather than percentages. us Vini Lord MD LAB BLOOD ORDERABLES Final R esult Performing Organization Address City/[facility] Co de Phone Number [facility] [address] [place] [address] * TSH (11/02/2024 1:57 PM EDT) Thyroid Stimulating Hormone, Plasma 3.18 0.40 - 4.20 uIU/mL 11/02/2024 3:51 PM EDT [facility] Blood Venous blood specimen / Unknown Venipuncture / Unknown 11/02/2024 1:57 PM EDT 11/02/2024 2:48 PM EDT Vini Lord MD LAB BLOOD ORDERABLES Final R esult Performing Organization Address City/[facility] Co de Phone Number [facility] [address] [place] [address] * (ABNORMAL) Magnesium (11/02/2024 1:57 PM EDT) Only the most recent of2 resultswithin the time period is included. Magnesium, Plasma 1.8(L) 1.9 - 2.4 mg/dL 11/02/2024 3:51 PM EDT [facility] Blood Venous blood specimen / Unknown Venipuncture / Unknown 11/02/2024 1:57 PM EDT 11/02/2024 2:48 PM EDT Vini Lord MD LAB BLOOD ORDERABLES Final R esult Performing Organization Address [facility] Co de Phone Number [facility] [address] [place] [address] * (ABNORMAL) CEA (11/02/2024 1:57 PM EDT) CEA, Serum 8.3(H) <4.0 ng/mL 11/02/2024 3:26 PM EDT [facility] Blood Venous blood specimen / Unknown Venipuncture / Unknown 11/02/2024 1:57 PM EDT 11/02/2024 2:49 PM EDT Narrative [facility] - 11/02/2024 3:26 PM EDT Normal range for smokers: < 5.5 ng/ml Normal range for non-smokers: <=4.0 ng/ml Performed by Home electrochemiluminescent immunoassay. Results obtained with different test methods or kits cannot be used interchangeably. Vini Lord MD LAB BLOOD ORDERABLES Final R esult Performing Organization Address [facility] Co de Phone Number [facility] [address] [place] [address] * (ABNORMAL) Comprehensive metabolic panel (11/02/2024 1:57 PM EDT) Glucose, Plasma 143(H) 74 - 99 mg/dL 11/02/2024 3:51 PM EDT [facility] BUN, Plasma 16 8 - 23 mg/dL 11/02/2024 3:51 PM EDT [facility] Creatinine, Plasma 0.93 0.60 - 1.10 mg/dL 11/02/2024 3:51 PM EDT [facility] BUN/Creatinine Ratio 17 11/02/2024 3:51 PM EDT [facility] Sodium, Plasma 131(L) 136 - 145 mmol/L 11/02/2024 3:51 PM EDT [facility] Potassium, Plasma 3.8 3.6 - 4.9 mmol/L 11/02/2024 3:51 PM EDT [facility] Chloride, Plasma 93(L) 97 - 107 mmol/L 11/02/2024 3:51 PM EDT [facility] CO2, Plasma 19(L) 22 - 29 mmol/L 11/02/2024 3:51 PM EDT [facility] Anion Gap 19(H) 6 - 16 mmol/L 11/02/2024 3:51 PM EDT [facility] Total Calcium, Plasma 9.0 8.9 - 10.2 mg/dL 11/02/2024 3:51 PM EDT [facility] Total Protein 7.2 6.3 - 7.9 g/dL 11/02/2024 3:51 PM EDT [facility] Albumin, Plasma 4.0 3.5 - 5.2 g/dL 11/02/2024 3:51 PM EDT [facility] AST, Plasma 23 10 - 35 U/L 11/02/2024 3:51 PM EDT [facility] Comment:Hemolyzed, result ma y be falsely increased. ALT, Plasma 19 10 - 35 U/L 11/02/2024 3:51 PM EDT [facility] Alkaline Phosphatase, Plasma 73 46 - 142 U/L 11/02/2024 3:51 PM EDT [facility] Total Bilirubin, Plasma 0.5 0.2 - 1.1 mg/dL 11/02/2024 3:51 PM EDT [facility] eGFRcr 61.5 mL/min/1.7 3m*2 11/02/2024 3:51 PM EDT [facility] Comment:Reported eGFRcr in m L/min/1.73m2 is based the CKD-EPI 2020 equation that does not use a race coefficient. Blood Venous blood specimen / Unknown Venipuncture / Unknown 11/02/2024 1:57 PM EDT 11/02/2024 2:48 PM EDT us Vini Lord MD LAB BLOOD ORDERABLES Final R esult [facility] [address] [place] [address] * CT Abdomen Pelvis w IV Contrast [...] Total DLP (Dose-Length Product): 1143.45 mGy.cm (accession [id number]), 1143.45 mGy.cm (accession [id number]). Please note: The reported value represents the [...] Total DLP (Dose-Length Product): 1143.45 mGy.cm (accession [id number]),1143.45 mGy.cm (accession [id number]). Please note: The reported valuerepresents the total [...] Total DLP (Dose-Length Product): 1143.45 mGy.cm (accession [id number]), 1143.45 mGy.cm (accession [id number]). Please note: The reported value represents the [...] INDICATION: Metastatic medullary thyroid cancer postthyroidectomy in 2016 and neckdissection in 2019. TECHNIQUE: Multiple CT helical images were obtained from thoracic inlet through pubicsymphysis with administration of IV contrast. 100 mL of Omnipaque-300were administered intravenously. Total DLP (Dose-Length Product): 1143.45 mGy.cm (accession [id number]),1143.45 mGy.cm (accession [id number]). Please note: The reported valuerepresents the total [...] error, please notify the sender immediately at [phone] and permanently delete the original report and destroy any copies or printouts. 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 WBC Count 13.53(H) 3.70 - 10.30 10*3/uL LAB HEMATOLOGY METHOD 10/22/2024 12:34 AM EDT [facility] RBC Count 4.54 3.90 - 5.20 10*6/uL LAB HEMATOLOGY METHOD 10/22/2024 12:34 AM EDT [facility] HGB 12.1 11.2 - 15.7 g/dL LAB HEMATOLOGY METHOD 10/22/2024 12:34 AM EDT [facility] HCT 36.9 34.0 - 45.0 % LAB HEMATOLOGY METHOD 10/22/2024 12:34 AM EDT [facility] Platelet Count 292 155 - 369 10*3/uL LAB HEMATOLOGY METHOD 10/22/2024 12:34 AM EDT [facility] MCV 81 79 - 98 fL LAB HEMATOLOGY METHOD 10/22/2024 12:34 AM EDT [facility] MCH 26.7 26.0 - 32.0 pg LAB HEMATOLOGY METHOD 10/22/2024 12:34 AM EDT [facility] MCHC 32.8 30.7 - 35.5 g/dL LAB HEMATOLOGY METHOD 10/22/2024 12:34 AM EDT [facility] RDW 15.8(H) 11.5 - 14.5 % LAB HEMATOLOGY METHOD 10/22/2024 12:34 AM EDT [facility] MPV 9.0 8.8 - 12.5 fL LAB HEMATOLOGY METHOD 10/22/2024 12:34 AM EDT [facility] nRBC 0.0 <=0.0 per 100 [facility] HEMATOLOGY METHOD 10/22/2024 12:34 AM EDT [facility] Blood Venous blood specimen / Unknown Venipuncture / Unknown 10/22/2024 12:07 AM EDT 10/22/2024 12:20 AM EDT Khanh Galindo APRN LAB BLOOD ORDERABLES Final Result [facility] [address] [place] [address] * Daisy auris Surveillance by PCR (10/21/2024 5:27 PM EDT) Daisy auris PCR Result Not Detected Not Detected 10/22/2024 1:29 PM EDT [facility] Swab (Axilla and Groin) Non-blood Collection / Unknown 10/21/2024 5:27 PM EDT 10/21/2024 5:38 PM EDT Narrative [facility] - 10/22/2024 1:29 PM EDT This PCR assay was developed and its performance characteristics determined by [facility] as appropriate for clinical purposes. This assay has not been cleared or approved by the FDA, but is performed in a CLIA regulated laboratory that is qualified to perform high-complexity testing. Kane Hidalgo MD LAB MICROBIOLOGY [facility] [[email or web address]] [facility] Final Result Performing Organization Address [facility]/ZIP Co de Phone Number [facility] [address] [place] [address] * Multi Drug Resistance Test (10/21/2024 5:27 PM EDT) Pathologist [facility] Culture No growth at day 1 10/22/2024 8:22 PM EDT [facility] Swab (Nares and Vilma Rectal) Non-blood Collection / Unknown 10/21/2024 5:27 PM EDT 10/21/2024 5:38 PM EDT Narrative [facility] - 10/22/2024 8:22 PM EDT This test was developed and its performance characteristics determined by the [facility] [place] [facility]. Although the media is FDA-approved, it is not FDA-approved for all specimen types submitted. The FDA has determined that such clearance or approval is not necessary. This test is used for surveillance purposes. It should not be regarded as investigational or for research. The [facility] [place] [facility] is certified under the Clinical Laboratory Improvement Amendments of 1988 (CLIA-88) as qualified to perform high complexity clinical laboratory testing. Kane Hidalgo MD LAB MICROBIOLOGY - GENERAL [facility] Final Result Performing Organization Address City/[facility]/ZIP Co de Phone Number [address] [address] * ECHO, ADULT TRANSTHORACIC LIMITED W/ COLOR [...] Cardiothoracic Surgery physicians. The primary Interventional Cardiology switch house operator was Dr. Kane Hidalgo and the primary Cardiothoracic Surgery switch house operator was Dr. Neelima Gray. The procedure, [...] 400 seconds 11/01/2024 9:14 AM EDT [facility] Injection Specialist ID Nabila Aguilera 11/01/2024 9:14 AM EDT [facility]ALTH[facility]ARE LAB ACT Device ID [id number] 11/01/2024 9:14 AM EDT [facility] Comment 11/01/2024 9:14 AM EDT [facility] Comment: ACT performed by [...] ST DOCKED DEVICE UNSOLICITED RESULTS Final Result [facility] [address] LAB [address] [place] [address] * POCT creatinine (10/21/2024 10:46 AM EDT) Creatinine, Point of Care 1.0 0.6 - 1.1 mg/dL 10/21/2024 10:49 AM EDT [facility] POCT eGFR 56 mL/min/1. 73m*2 10/21/2024 10:49 AM EDT [facility] Injection Specialist ID Jerardo Lowe 10/21/2024 10:49 AM EDT [facility] Device ID [id number] 10/21/2024 10:49 AM EDT [facility] Comment 10/21/2024 10:49 AM EDT [facility] Comment:Testing performed on i-STAT at the point of care. Reported eGFRcr in mL/min/1.73m2 is based the CKD-EPI 2020 equation that does not use a race coefficient. Blood Venous blood specimen / Unknown 10/21/2024 10:46 AM EDT 10/21/2024 10:49 AM EDT us Kane Hidalgo MD LAB POINT OF CARE TE ST DOCKED DEVICE UNSOLICITED RESULTS Final Result Performing Organization Address City/[facility]/ZIP Co de Phone Number [facility] [address] [place] [address] [place] [address] * N-Terminal Probnp (10/21/2024 10:41 AM EDT) N-Terminal, PROBNP, Plasma 496 0 - 1,799 pg/mL 10/21/2024 11:25 AM EDT [facility] Blood Venous blood specimen / Unknown Venipuncture / Unknown 10/21/2024 10:41 AM EDT 10/21/2024 10:55 AM EDT us Ankita RODRIGUEZ LAB BLOOD ORDERABLES Fi nal Result Performing Organization Address City/[facility]/ZIP Co de Phone Number [facility] [address] [place] [address] * Type and Screen (10/21/2024 10:41 AM EDT) ABO/Rh A Positive 10/21/2024 10:41 AM EDT [facility] Antibody Screen Negative 10/21/2024 10:41 AM EDT [facility] Specimen Expiration 10/24/2024 23:59 10/21/2024 10:41 AM EDT [facility] Blood Venous blood specimen / Unknown Venipuncture / Unknown 10/21/2024 10:41 AM EDT 10/21/2024 10:52 AM EDT us Ankita RODRIGUEZ LAB BLOOD BANK TEST ORD ERABLES Final Result Performing Organization Address [facility] Co de Phone Number BLOOD BANK [address] * (ABNORMAL) Hemoglobin A1c (11/19/2023 4:15 PM EDT) Hemoglobin A1c 6.1(H) <5.7 % 11/19/2023 4:52 PM EDT [facility] Blood Venous blood specimen / Unknown [...] Adults <6.0% Children and Adolescents <7.5% Source: [place] [employer]. Standards of medical care in diabetes,2017. Diabetes Care.2017:40 (suppl 1):S1-S135. HbA1c assay performed by an ion-exchange chromatography method that is certified traceable to the DCCT. us Dominguez Duffy MD LAB BLOOD ORDERABLES Final Resu lt Performing Organization Address City/[facility] Co de Phone Number HEALTHCARE LAB [address] [place] [address] from Last 3 Months or Most Recently Relevant to Health Maintenance Insurance [facility] MEDICARE Advance Directives * Full Code (Latest Code [...] Patient has decision-making capacity? Yes Care Teams Utility System Operator Relationship Specialty Start Date End Date Onur Guerrero MD PCP - General Family Medicine 01/22/22
--- OUTSIDE RECORDS SUMMARY | 2024-12-30 21:49 | XMS_ITS | Encounter Summary ---
Author Organization [facility] Address [address] [place] [address] Care Team Providers Care Portal Developer Name Role Phone Onur Guerrero MD Primary Care Provider Dyana vailable Reason for Referral * Imaging (Routine) - Pending Review Specialty Diagnoses / Procedures Referred By Contac t Referred To Contact Radiology Diagnoses Medullary carcinoma of thyroid, isolated Procedures CT Soft Tissue Neck w IV Contrast Vini Lord MD [address] Katarina Zarate [address] [address] Phone: tel: fax: Referral ID Status Reason Start Date Expiration Date V isits Requested Visits Authorized [id number] Pending Review 11/04/2024 05/06/2026 1 1 * Imaging (Routine) - Pending Review Specialty Diagnoses / Procedures Referred By Contac t Referred To Contact Radiology Diagnoses Medullary carcinoma of thyroid, isolated Procedures CT Chest w IV Contrast Vini Lord MD 800 [facility] Katarina Zarate [address] [address] Phone: tel: fax: Referral ID Status Reason Start Date Expiration Date V isits Requested Visits Authorized [id number] Pending Review 11/04/2024 05/06/2026 1 1 * Imaging (Routine) - Pending Review Specialty Diagnoses / Procedures Referred By Contac t Referred To Contact Radiology Diagnoses Medullary carcinoma of thyroid, isolated Procedures CT Abdomen Pelvis w IV Contrast Vini Lord MD 800 [facility] Katarina Zarate [facility] [address] [place] [address] Phone: tel: fax: Referral ID Status Reason Start Date Expiration Date V isits Requested Visits Authorized [id number] Pending Review 11/04/2024 05/06/2026 1 1 Encounter Details Date Type Department Care Team (Late Contact Info) Description 11/04/2024 Orders Only [facility] [address] [place] [address] Vini Lord MD 800 [facility] [address] [place] [address] Medullary carcinoma of thyroid, isolated (Primary [...] Start Date 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 Not on jessica e documented as of this encounter Plan of Treatment Upcoming Encounters Date Type Department Care Team (Late Contact Info) Description 01/28/2025 11:20 AM EDT Office Visit [facility] Nephrology, Bone & Mineral Metabolism [address] [facility], [address] [place] [address] Amanda Adams MD [address] [facility] [address] [place] [address] 03/08/2025 1:30 PM EST Appointment [facility] G Radiology [address] [place] [address] 03/08/2025 3:50 PM EST Office Visit [facility] [address] [place] [phone] Vini Lord MD 800 [facility] Katarina Zarate [facility] [address] [place] [address] 05/18/2025 12:30 PM EST Clinical Support [facility] Head[facility] Neck & Respiratory 800 [facility], 2nd [place] [address] 05/18/2025 1:00 PM EST Office Visit [facility] 800 [facility], [address] [place] [address] Dominguez Duffy MD [address] [place] [address] [address] [place] [address] 05/18/2025 1:40 PM EST Office Visit [facility] [address] [facility], 2nd [place] [address] Kassi Ronquillo, LOFT PATTERNMAKER [address] [place] [address] 11/02/2025 9:30 AM EDT Appointment Medical Office Building Cardiac Diagnostic Testing Medical Office Building Echo Lab [address] [facility], [address] [place] [address] 11/02/2025 11:00 AM EDT Office Visit [facility] [place] [address] [facility], [address] [place] [address] Ankita Vásquez PA [address] [place] [phone] Scheduled Orders Name Type Priority Associated Diagnoses [...] documented as of this encounter Care Teams Portal Developer Relationship Specialty Start Date End Date Onur Guerrero MD PCP - General Family Medicine 01/22/22 documented as of this encounter
--- OUTSIDE RECORDS SUMMARY | 2024-12-30 21:49 | XMS_ITS | Encounter Summary ---
Author Organization Healthcare Address [address] 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 Not on jessica e documented as of this encounter Plan of Treatment Upcoming Encounters Date Type Department Care Team ([facility] Contact Info) Description 01/28/2025 11:20 AM EDT Office Visit [facility] Nephrology, Bone & Mineral Metabolism [address] [facility], [address] [place] [address] Amanda Adams MD [address] [facility] [address] [place] [address] 03/08/2025 1:30 PM EST Appointment [facility] Radiology [address] [place] [address] 03/08/2025 3:50 PM EST Office Visit [facility] [address] [place] [address] Vini Lord MD 800 [facility] [address] [place] [address] 05/18/2025 12:30 PM EST Clinical Support [facility] Head, Neck & Respiratory 800 [facility], 2nd [place] [address] 05/18/2025 1:00 PM EST Office Visit [facility] Head[facility] Neck & Respiratory [address] [facility], 2nd [place] [address] Dominguez Duffy MD [address] [place] [address] [address] [place] [address] 05/18/2025 1:40 PM EST Office Visit [facility] Neck [facility] Res[facility] [address] [facility], 2nd [place] [address] Kassi Ronquillo, SUCTION DREDGE DUMPING SUPERVISOR [address] [place] [address] 11/02/2025 9:30 AM EDT Appointment Medical Office Building Cardiac Diagnostic Testing Medical Office Building Echo Lab [address] [facility], [address] [place] [address] 11/02/2025 11:00 AM EDT Office Visit [facility] [place] [address] [facility], [address] [place] [address] Ankita Vásquez PA [address] [place] [address] documented as of this encounter Visit Diagnoses Diagnosis Essential hypertension Unspecified essential hypertension documented in this encounter Additional Health Concerns Assessment Noted Time A fall risk assessment has been complete d for the patient 06/13/2023 11:17 AM EST A Body Mass Index follow-up plan has been documented for the patient 04/07/2023 1:37 PM EST documented as of this encounter Care Teams Ready To Wear Department Manager Relationship Specialty Start Date End Date Onur Guerrero MD PCP - General Family Medicine 01/22/22 documented as of this encounter
--- OUTSIDE RECORDS SUMMARY | 2024-12-30 21:49 | XMS_ITS | Encounter Summary ---
Author Organization Healthcare Address [address] 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 Never 12/15/2024 12:03 PM ERIKT Rosanna Yancey Q2: How many drinks containing [...] things Not at all 12/15/2024 12:01 PM ERIKT Rosanna Yancey Feeling down, depressed, or hopeless Not at all 12/15/2024 12:01 PM ERIKT Rosanna Yancey Patient Health Questionnaire -2 Score 0 12/15/2024 12:01 PM EDT oRsanna Yancey * Question Answer Date of Assessment [...] Manuelito Yancey documented as of this encounter Plan of Treatment Upcoming Encounters Date Type Department Care Team ([facility] st Contact Info) Description 01/28/2025 11:20 AM EDT Office Visit [facility] Nephrology, Bone & Mineral Metabolism [address] [facility], [address] [place] [address] Amanda Adams MD [address] [facility] [address] [place] [address] 03/08/2025 1:30 PM EST Appointment [facility] Radiology [address] [place] [address] 03/08/2025 3:50 PM EST Office Visit [facility] [address] [place] [address] Vini Lord MD 800 [facility] [address] [place] [address] 05/18/2025 12:30 PM EST Clinical Support Pav [facility] Head, Neck & Respiratory [address] [facility], 2nd [place] [address] 05/18/2025 1:00 PM EST Office Visit [facility] Head[facility] Neck & Respiratory [address] [facility], 2nd [place] [address] Dominguez Duffy MD [address] [facility] [address] [place] [address] 05/18/2025 1:40 PM EST Office Visit [facility] Head[facility] Neck & Respiratory [address] [facility], [address]nd [place] [address] Kassi Ronquillo, UNIFIED COMMUNICATIONS ENGINEER [address] [place] [address] 11/02/2025 9:30 AM EDT Appointment Medical Office Building Cardiac Diagnostic Testing Medical Office Building Echo Lab [address] [facility], [address] [place] [address] 11/02/2025 11:00 AM EDT Office Visit [facility] [place] [address] [facility], [address] [place] [address] Ankita Vásquez PA [address] [place] [address] documented as of this encounter [...] documented as of this encounter Care Teams Complaint Evaluation Officer Relationship Specialty Start Date End Date Onur Guerrero MD PCP - General Family Medicine 01/22/22 documented as of this encounter
--- OUTSIDE RECORDS SUMMARY | 2024-12-30 21:49 | XMS_ITS | Encounter Summary ---
Author Organization Healthcare Address [address] 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 Katarina Zarate [facility] [address] [place] [address] 05/18/2025 12:30 PM EST Clinical Support Pav [facility] Head, Neck & Respiratory [address] [facility], 2nd [place] [address] 05/18/2025 1:00 PM EST Office Visit [facility] Head[facility] Neck & Respiratory [address] [facility], [address] [place] [address] Dominguez Duffy MD [address] [place] [address] [address] [place] [address] 05/18/2025 1:40 PM EST Office Visit [facility] Head[facility] Neck & Respiratory [address] [facility], [address] [place] [address] Kassi Ronquillo, SOLID GLASS ROD DOWEL MACHINE OPERATOR [address] [place] [address] 11/02/2025 9:30 AM EDT Appointment Medical Office Building Cardiac Diagnostic Testing Medical Office Building Echo Lab [address] [facility], [address] [place] [address] 11/02/2025 11:00 AM EDT Office Visit [facility] [place] [address] [facility], [address] [place] [address] Ankita Vásquez PA 800 [place] [address] documented as of this encounter [...] documented as of this encounter Care Teams District Medical Examiner Relationship Specialty Start Date End Date Onur Guerrero MD PCP - General Family Medicine 01/22/22 documented as of this encounter
[2024-12-30 22:15] LABS: Anion Gap 20.4 mEq/L (5-15); Blood Urea Nitrogen 28 mg/dl (7-17); Calcium 11.3 mg/dl (8.4-10.2); Carbon Dioxide 22 mmol/L (22.0-30.0); Chloride 101 mmol/L (98-107); Creatinine,Serum 1.50 mg/dl (0.52-1.04); Estimated Glomerular Filt Rate 33 ml/min (>60); GFR (African American) 40 ML/MIN (>60); Glucose 115 mg/dl (74-100); Magnesium 2.0 mg/dl (1.6-2.3); Potassium 5.4 mmoL/L (3.5-5.1); Sodium 138 mmol/L (136-145)
== END 2024-12-30 23:59 | disposition home or self-care (01) ==
LOC: LAB.DROPOF 21:47
PROVIDERS: PCP Internal Medicine Nephrology; Visit Provider Internal Medicine Nephrology
DX: E83.42 Hypomagnesemia (principal); N18.2 Chronic kidney disease, stage 2 (mild); E87.6 Hypokalemia
CPT/HCPCS: 80048; 83735

== ENCOUNTER 2025-01-10 22:34 | Outpatient (CLI) | payer MEDICARE, SELFPAY ==
--- OUTSIDE RECORDS SUMMARY | 2024-11-17 11:00 | XMS_ITS | Encounter Summary ---
Author Organization Healthcare Address [address] 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 Thyroid Related Surgery: #1 Date: 04/01/2017, [facility] Type: Total Thyroidectomy Node Resection: Node Picking [...] Hypocalcemia Thyroid Related Surgery: #2 Date: 11/02/2019, [facility] Node Resection: Node Picking Pathology Description: Two [...] 0.0 - 5.1 pg/mL <4.0 ng/mL 06/20/2021 67008.0 (H) 11.9 (H) 08/14/2021 868.0 (H) 09/05/2021 [...] right neck nodes and thyroid bed tumor. [facility] negative, making [...] labs. Electronically signed by: Dominguez Duffy MD [facility] ENDOCR[facility]OLOG[facility] [address] [place] [address]. [address] [place]. [address] PHONE [phone] FAX: [phone] documented in this encounter Plan of Treatment Upcoming Encounters Date Type Department Care Team (Late st Contact Info) Description 01/28/2025 11:20 AM EDT Office Visit [facility] [employer] [facility] Nephrology, Bone & Mineral Metabolism [address] [facility], [address] [place] [address] Amanda Adams MD [address] [place] [address] 03/08/2025 1:30 PM EST Appointment [facility] [address] [place] [address] 03/08/2025 3:50 PM EST Office Visit [facility] 800 [place] [address] Vini Lord MD 800 [facility] [address] [place] [address] 05/18/2025 12:30 PM EST Clinical Support Pav CC Head, Neck & Respiratory [address] [facility], 2nd [place] [address] 05/18/2025 1:00 PM EST Office Visit [facility] CC Head, Neck & Respiratory [address] [facility], [address]nd [place] [address] Dominguez Duffy MD [address] [place] [address] [address] [place] [address] 05/18/2025 1:40 PM EST Office Visit [facility] CC Head, Neck & Respiratory [address] [facility], [address] [place] [address] Kassi Ronquillo, BINDER FOLDER OPERATOR [address] [place] [address] 11/02/2025 9:30 AM EDT Appointment Medical Office Building Cardiac Diagnostic Testing Medical Office Building Echo Lab [address] [facility], [address] [place] [address] 11/02/2025 11:00 AM EDT Office Visit [facility] [place] [address] [facility], [address] [place] [address] Ankita Vásquez PA 800 [place] [address] Scheduled Orders Name Type Priority Associated Diagnoses Orde r Schedule Hemoglobin A1c Lab Routine Hyperglycemia Expected: 11/26/2024 (Approximate), Expires: 05/29/2026 documented as of this encounter Results * Sodium, urine, random (11/17/2024 1:01 PM EDT) Sodium, Urine 86 mmol/L 11/17/2024 1:41 PM EDT [facility] Urine Urine specimen obtained by clean catch procedure / Unknown Non-blood Collection / Unknown 11/17/2024 1:01 PM EDT 11/17/2024 1:22 PM EDT us Dominguez Duffy MD LAB URINE ORDERABLES Final Resu lt [facility] [address] [place] [address] * (ABNORMAL) Basic Metabolic Panel, Plasma (11/17/2024 1:01 PM EDT) Glucose, Plasma 102(H) 74 - 99 mg/dL 11/17/2024 1:36 PM EDT [facility] BUN, Plasma 17 8 - 23 mg/dL 11/17/2024 1:36 PM EDT [facility] Creatinine, Plasma 1.00 0.60 - 1.10 mg/dL 11/17/2024 1:36 PM EDT [facility] BUN/Creatinine Ratio 17 11/17/2024 1:36 PM EDT [facility] Sodium, Plasma 135(L) 136 - 145 mmol/L 11/17/2024 1:36 PM EDT [facility] Potassium, Plasma 4.2 3.6 - 4.9 mmol/L 11/17/2024 1:36 PM EDT [facility] Chloride, Plasma 97 97 - 107 mmol/L 11/17/2024 1:36 PM EDT [facility] CO2, Plasma 23 22 - 29 mmol/L 11/17/2024 1:36 PM EDT [facility] Anion Gap 15 6 - 16 mmol/L 11/17/2024 1:36 PM EDT [facility] Total Calcium, Plasma 9.4 8.9 - 10.2 mg/dL 11/17/2024 1:36 PM EDT [facility] eGFRcr 56.4 mL/min/1.7 3m*2 11/17/2024 1:36 PM EDT [facility] Comment:Reported eGFRcr in m L/min/1.73m2 is based the CKD-EPI 2020 equation that does not use a race coefficient. Blood Venous blood specimen / Unknown Venipuncture / Unknown 11/17/2024 1:01 PM EDT 11/17/2024 1:08 PM EDT us Dominguez Duffy MD LAB BLOOD ORDERABLES Final Resu lt [facility] [address] [place] [address] documented in this encounter Visit Diagnoses Diagnosis [...] documented as of this encounter Care Teams Mental Health Nurse Relationship Specialty Start Date End Date Onur Guerrero MD PCP - General Family Medicine 01/22/22 documented as of this encounter
--- OUTSIDE RECORDS SUMMARY | 2024-11-17 11:45 | XMS_ITS | Encounter Summary ---
Author Organization Healthcare Address [address] 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 Nephrology, Bone & Mineral Metabolism [address] [facility], [address] [place] [address] Amanda Adams MD [address] [facility] [address] [place] [address] 03/08/2025 1:30 PM EST Appointment [facility] G Radiology [address] [place] [address] 03/08/2025 3:50 PM EST Office Visit [facility] [address] [place] [address] Vini Lord MD [address] [facility] [address] [place] [address] 05/18/2025 12:30 PM EST Clinical Support [facility]ck [facility] Respiratory [address] [facility]nd [place] [address] 05/18/2025 1:00 PM EST Office Visit [facility] [address] [facility], [address] [place] [phone] Dominguez Duffy MD [address] [place] [address] [address] [place] [address] 05/18/2025 1:40 PM EST Office Visit [facility]ck [facility] Respiratory [address] [facility], [address] [place] [address] Kassi Ronquillo, QUILLER RUNNER [address] [place] [address] 11/02/2025 9:30 AM EDT Appointment Medical Office Building Cardiac Diagnostic Testing Medical Office Building Echo Lab [address] [facility], [address] [place] [address] 11/02/2025 11:00 AM EDT Office Visit [facility] [place] [address] [facility], [address] [place] [address] Ankita Vásquez PA [address] [place] [address] documented as of this encounter Procedures Procedure Name Priority Date/Time Associated Diagnosis Comments SODIUM, URINE, RANDOM Routine 11/17/2024 1:01 PM EDT Hyponatremia BASIC METABOLIC PANEL, PLASMA Routine 11/17/2024 1:01 PM EDT Hyponatremia documented in this encounter Results * Sodium, urine, random (11/17/2024 1:01 PM EDT) Sodium, Urine 86 mmol/L 11/17/2024 1:41 PM EDT [facility] Urine Urine specimen obtained by clean catch procedure / Unknown Non-blood Collection / Unknown 11/17/2024 1:01 PM EDT 11/17/2024 1:22 PM EDT us Dominguez Duffy MD LAB URINE ORDERABLES Final Resu lt [facility] [address] [place] [address] * (ABNORMAL) Basic Metabolic Panel, Plasma (11/17/2024 1:01 PM EDT) Glucose, Plasma 102(H) 74 - 99 mg/dL 11/17/2024 1:36 PM EDT [facility] BUN, Plasma 17 8 - 23 mg/dL 11/17/2024 1:36 PM EDT [facility] Creatinine, Plasma 1.00 0.60 - 1.10 mg/dL 11/17/2024 1:36 PM EDT [facility] BUN/Creatinine Ratio 17 11/17/2024 1:36 PM EDT [facility] Sodium, Plasma 135(L) 136 - 145 mmol/L 11/17/2024 1:36 PM EDT [facility] Potassium, Plasma 4.2 3.6 - 4.9 mmol/L 11/17/2024 1:36 PM EDT [facility] Chloride, Plasma 97 97 - 107 mmol/L 11/17/2024 1:36 PM EDT [facility] CO2, Plasma 23 22 - 29 mmol/L 11/17/2024 1:36 PM EDT [facility] Anion Gap 15 6 - 16 mmol/L 11/17/2024 1:36 PM EDT [facility] Total Calcium, Plasma 9.4 8.9 - 10.2 mg/dL 11/17/2024 1:36 PM EDT [facility] eGFRcr 56.4 mL/min/1.7 3m*2 11/17/2024 1:36 PM EDT [facility] Comment:Reported eGFRcr in m L/min/1.73m2 is based the CKD-EPI 2020 equation that does not use a race coefficient. Blood Venous blood specimen / Unknown Venipuncture / Unknown 11/17/2024 1:01 PM EDT 11/17/2024 1:08 PM EDT us Dominguez Duffy MD LAB BLOOD ORDERABLES Final Resu lt [facility] [address] [place] [address] documented in this encounter Visit Diagnoses Diagnosis [...] documented as of this encounter Care Teams Team Automobile Assembler Relationship Specialty Start Date End Date Onur Guerrero MD PCP - General Family Medicine 01/22/22 documented as of this encounter
--- OUTSIDE RECORDS SUMMARY | 2024-11-17 13:00 | XMS_ITS | Encounter Summary ---
Author Organization Healthcare Address [address] 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 SVE [place] 0.09%, SV Arrhythmias: no sustained arrhythmias noted, non sustained atrial runs- longest 19 beats. PVC [place] 0.01% Echo 06/13/2023- LVEF 64%, normal GLS, G I diastolic dysfunction, LA size mildly increased, mild to moderate AV regurgitations, mild - peak gradient 24 mmHg, mean gradient 12 mmHg, estimated JOSE 1.4cm2 14 Day Patch 03/11/2023- Primary rhythm was SR. Average HR 63 bpm, Minimum HR 46 bpm , Max HR 95 bpm. Rare SVE(s):[place] was 0.27 %. Frequent runs of SVT: 69 events, longest event 14 beats likely to be AT. Rare PVC(s): [place] was < 0.01 % CARDIAC MEDICATION: aspirin (ASPIRIN) 81 mg, Daily hydroCHLOROthiazide (HYDRODIURIL) 25 mg, Every morning NIFEdipine XL (PROCARDIA XL) 60 mg, Oral, Every evening, Do not crush, chew, or split. valsartan (DIOVAN) 320 mg, Oral, Daily * Progress Notes - Kassi Ronquillo, KARINA - 11/17/2024 1:00 PM EDT [...] today in the Cardio- Oncology Clinic @ [facility] for follow up on cardiac surveillance while [...] 42 bpm, Max HR 137 bpm. SVE [place] 0.09%, SV Arrhythmias: no sustained arrhythmias noted, non sustained atrial runs- longest 19 beats. PVC [place] 0.01% Echo 06/13/2023- LVEF 64%, normal GLS, G I diastolic dysfunction, LA size mildly increased, mild to moderate AV regurgitations, mild - peak gradient 24 mmHg, mean gradient 12 mmHg, estimated JOSE 1.4cm2 14 Day Patch 03/11/2023- Primary rhythm was SR. Average HR 63 bpm, Minimum HR 46 bpm , Max HR 95 bpm. Rare SVE(s):[place] was 0.27 %. Frequent runs of SVT: 69 events, longest event 14 beats likely to be AT. Rare PVC(s): [place] was < 0.01 % CARDIAC MEDICATION: aspirin [...] mouth 1 (one) time each day. 30 [id number] escitalopram (Lexapro) 10 MG tablet Take 1 [...] Description 01/28/2025 11:20 AM EDT Office Visit [facility] [place] Nephrology, Bone & Mineral Metabolism [address] [facility], [address] [place] [address] Amanda Adams MD [address] [place] [address] 03/08/2025 1:30 PM EST Appointment [facility] Radiology [address] [place] [address] 03/08/2025 3:50 PM EST Office Visit [facility] [address] [place] [address] Vini Lord MD [address] [facility] [address] [place] [address] 05/18/2025 12:30 PM EST Clinical Support [facility] Head, Neck & Respiratory [address] [facility], [address] [place] [address] 05/18/2025 1:00 PM EST Office Visit [facility] Head, Neck & Respiratory [address] [facility], [address] [place] [address] Dominguez Duffy MD [address] [place] [address] 05/18/2025 1:40 PM EST Office Visit [facility] Head, Neck & Respiratory [address] [facility], [address]nd [place] [address] Kassi Ronquillo, ASSISTANT MANAGER PT [address] [place] [address] 11/02/2025 9:30 AM EDT Appointment Medical Office Building Cardiac Diagnostic Testing Medical Office Building Echo Lab [address] [facility], [address] [place] [address] 11/02/2025 11:00 AM EDT Office Visit [facility] [place] [address] [facility], [address] [place] [address] Ankita Vásquez PA [address] [place] [address] documented as of this encounter [...] ECG Atrial Rate 63 BPM MUSE ECG AK Interval 164 ms MUSE ECG QRSD Interval 120 ms MUSE ECG QT Interval 462 ms MUSE ECG QTC Interval 472 ms MUSE ECG P [place] 7 degrees MUSE ECG R [place] -36 degrees MUSE ECG T Wave [place] 13 degrees MUSE ECG Diagnosis Normal sinus rhythm MUSE ECG Diagnosis Left axis deviation MUSE ECG Diagnosis Right bundle branch block MUSE ECG Diagnosis Cannot rule out Lateral infarct , age undetermined MUSE ECG Diagnosis Abnormal ECG MUSE ECG Diagnosis MUSE ECG Diagnosis Confirmed by Fran Morgan ([id number]) on 11/17/2024 1:25:09 PM MUSE ECG 11/17/2024 1:04 PM EDT 11/17/2024 1:25 PM EDT us Kassi Ronquillo ASSISTANT MANAGER PT ECG ORDERABLES Final Re sult MUSE ECG [...] documented as of this encounter Care Teams Telephonic Rn Relationship Specialty Start Date End Date Onur Guerrero MD PCP - General Family Medicine 01/22/22 documented as of this encounter
--- OUTSIDE RECORDS SUMMARY | 2024-12-15 10:38 | XMS_ITS | Encounter Summary ---
Author Organization [facility] Address [address] [place] [address] Care Team Providers Care Roof Truss Detailer Name Role Phone Onur Guerrero MD Primary Care Provider Dyana vailable Reason for Referral * Imaging (Routine) - Closed Specialty Diagnoses / Procedures Referred By Contac t Referred To Contact Cardiology Diagnoses S/P TAVR (transcatheter aortic valve replacement) Procedures Echo, Adult Transthoracic Complete Ankita Vásquez PA [address] [place] [address] Phone: tel: fax: Referral ID Status Reason Start Date Expiration Date V isits Requested Visits Authorized [id number] Closed Perform Procedure 10/21/2024 04/22/2026 1 1 Reason for Visit * Imaging (Routine) - Closed Specialty Diagnoses / Procedures Referred By Contac t Referred To Contact Cardiology Diagnoses S/P TAVR (transcatheter aortic valve replacement) Procedures Echo, Adult Transthoracic Complete Ankita Vásquez PA [address] [place] [address] Phone: tel: fax: Referral ID Status Reason Start Date Expiration Date V isits Requested Visits Authorized [id number] Closed Perform Procedure 10/21/2024 04/22/2026 1 1 Encounter Details Date Type Department Care Team (Latest Contact Info) Description 12/15/2024 10:38 AM EDT - 12/15/2024 11:59 PM EDT Hospital Encounter Medical Office Building Cardiac Diagnostic Testing Medical Office Building Echo Lab [address], [address] [place] [address] S/P TAVR (transcatheter aortic valve replacement) Discharge Disposition: Home or Self Care Social History Tobacco Use Types Packs/Day Years Used Date Smoking Tobacco: Never Smokeless Tobacco: Never Alcohol Use Standard Drinks/Week Comments Never 0 (1 standard drink = 0.6 oz pur e alcohol) PHQ-2 Answer Date Recorded Patient Health Questionnaire-2 Score 0 12/15/2024 PHQ-9 Answer Date Recorded Patient Health Questionnaire-9 Score 0 12/15/2024 AUDIT-C Answer Date Recorded Q1: How often do you have a drink containing alcohol? Never 12/15/2024 Q2: How many drinks containi ng alcohol do you have on a typical day when you are drinking? Patient does not drink Q3: How often do you have si x or more drinks on one occasion? 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 Never 12/15/2024 12:03 PM EDT Rosanna Yancey Q2: How many drinks containing alcohol do you have on a typical day when you are drinking? Patient does not drink 12/15/2024 12:03 PM ERIKT Payton Yancey Q3: How often do you have six or more drinks on one occasion? Never 12/15/2024 12:03 PM ERIKT Rosanna Yancey * Over the past 2 weeks, how often have you been bothered by any of the following problems? Question Answer Date of Assessment Author Little interest or pleasure in doing things Not at all 12/15/2024 12:01 PM Rosanna Hall Feeling down, depressed, or hopeless Not at all 12/15/2024 12:01 PM ERIKT Rosanna Yancey Patient Health Questionnaire -2 Score 0 12/15/2024 12:01 PM ERIKT Rosanna Yancey * Question Answer Date of Assessment Author Trouble falling or staying asleep, or sleeping too much Not at all 12/15/2024 12:01 PM Payton Hall Feeling tired or having yas le energy Not at all 12/15/2024 12:01 PM ERIKT Rosanna Yancey Poor appetite or overeating Not at all 12/15/2024 12 :01 PM Payton Hall Feeling bad about yourself - or that you are a failure or have let yourself or your family down Not at all 12/15/2024 12:01 PM ERIKT Payton Shipley Trouble concentrating on thi ngs, such as reading the newspaper or watching television Not at all 12/15/2024 12:01 PM ERIKT Rosanna Yancey Moving or speaking so slowly that other people could have noticed? Or the opposite - being so fidgety or restless that you have been moving around a lot more than usual. Not at all 12/15/2024 12:01 PM Rosanna Hall Thoughts that you would be better off or hurting yourself in some way Not at all 12/15/2024 12:01 PM Manuelito Hall Patient Health Questionnaire -9 Score 0 12/15/2024 12:01 PM ERIKT Rosanna Yancey * If you checked off any problems on this questionnaire so far, Question Answer Date of Assessment Author How difficult have these problems made it for you to do your work, take care of things at home, or get along with other people? Not difficult at all 12/15/2024 12:01 PM EDT Manuelito Yancey documented as of this encounter Medications at Time of Discharge aMILoride (Midamor) 5 MG tabletIndications:Other secondary hypertension,Hypomagnes emia Take 1 tablet by mouth daily. *Replaces hydrochloroth iazide* 30 tablet 5 5 ASPIRIN 81 MG chewable tablet Chew 1 [...] by mouth daily. 90 tablet 1 5 magnesium oxide (Mag-Ox) 400 (240 Mg) MG tablet Take 1 tablet by mouth every morning. 5 Multiple Vitamins-Minerals (multivitamin with minerals) tablet Take 1 tablet by mouth every morning. NIFEdipine XL (Procardia XL) 30 MG 24 hr tabletIndications:Essen tial hypertension Take 1 tablet by mouth every evening. Do not crush, chew, or split. 90 tablet 1 5 omeprazole (PriLOSEC) [address] capsule Take 1 capsule by mouth daily. 2 valsartan (Diovan) 320 MG tabletIndications:Arielle dill hypertension Take 1 tablet by mouth daily. 90 tablet 1 5 documented as of this encounter Plan of Treatment Upcoming Encounters Date Type Department Care Team ([facility] st Contact Info) Description 01/28/2025 11:20 AM EDT Office Visit [facility] Nephrology, Bone & Mineral Metabolism [address], [address] [place] [address] Amanda Adams MD [address] [place] [address] 03/08/2025 1:30 PM EST Appointment [facility] Radiology [address] [place] [phone] 03/08/2025 3:50 PM EST Office Visit [facility] [address] [place] [phone] Vini Lord MD [address] [facility] [address] [place] [phone] 05/18/2025 12:30 PM EST Clinical Support [facility] [address] [facility] [place] [phone] 05/18/2025 1:00 PM EST Office Visit [facility] [address] [facility] [place] [phone] Dominguez Duffy MD [address] [facility] [address] [place] [address] 05/18/2025 1:40 PM EST Office Visit [facility] [address] [facility] [place] [phone] Kassi Ronquillo, [employer] SOLUTION ARCHITECT [address] [place] [phone] 11/02/2025 9:30 AM EDT Appointment Medical Office Building Cardiac Diagnostic Testing Medical Office Building Echo Lab [address] , [address] [place] [phone] 11/02/2025 11:00 AM EDT Office Visit [facility] [place] [address] , [address] [place] [address] Ankita Vásquez, MICHAEL [address] [place] [address] documented as of this encounter Procedures Procedure Name Priority Date/Time Associated Diagnosis Comments ECHO, ADULT TRANSTHORACIC COMPLETE Routine 12/15/2024 11:47 AM EDT S/P TAVR (transcatheter aortic valve replacement) documented in this encounter Results * ECHO, ADULT TRANSTHORACIC COMPLETE (12/15/2024 11:47 AM EDT) Height 157.5 PASHA ISCV Weight 65.8 PASHA ISCV BSA 1.67 m2 PASHA ISCV LV V1 VTI 34.7 cm PASHA ISCV TR Vmax 162.0 cm/s PASHA ISCV TR Max PG 10 mmHG PASHA ISCV AI Vmax 324.0 cm/s PASHA ISCV AI max PG 42 mmHg PASHA ISCV AI dec slope 151 cm/s2 PASHA ISCV AI dec time 660 msec PASHA ISCV AI P1/2t 191 msec PASHA ISCV LV V1 Vmax 130.0 cm/s PASHA ISCV Ao V2 VTI 63.6 cm PASHA ISCV Ao mean PG 13 mmHg PASHA ISCV Ao V2 Vmax 251.0 cm/s PASHA ISCV Ao max PG 25 mmHg PASHA ISCV AV VTI Index 0.55 PASHA ISCV LV mean PG 3.0 mmHG PASHA ISCV LV V1 mean 84.5 cm/sec PASHA ISCV LV max PG 6.8 mmHg PASHA ISCV AV-pr VR 0.5 PASHA ISCV Ao V2 mean 165.0 cm/s PASHA ISCV RVSP 13 mmHg PASHA ISCV RAP systole 3 mmHg PASHA ISCV LAV(MOD-2ch) 64 mL PASHA ISCV TAPSE 28 mm PASHA ISCV RV s' Lawrence 16.5 cm/s PASHA ISCV RA MOD 4Ch 28 mL PASHA ISCV TEMO 17 mL/m2 PASHA ISCV RV base 33 mm PASHA ISCV RV Mid 28 mm PASHA ISCV LV EDV(MOD-2ch) 80 mL PASHA ISCV LV ESV(MOD2ch) 38 mL PASHA ISCV EF(MOD-sp2) 53 % PASHA ISCV LVLs ap2 5.8 mm PASHA ISCV LV Sept e' Lawrence 4.7 cm/s PASHA ISCV LV Lat e' Velocity 5.0 cm/s PASHA ISCV MV V2 VTI 55.9 cm PASHA ISCV MV MG 3 mmHg PASHA ISCV MV V2 max 181.5 cm/s PASHA ISCV MV max PG 13 mmHg PASHA ISCV LAV(MOD-bp) Indexed 34 mL/m2 PASHA ISCV LAV(MOD-4ch) 48 mL PASHA ISCV LV EDV(MOD-4ch) 104 mL PASHA ISCV EDV(MOD-bp) 92 mL PASHA ISCV LV ESV(MOD4ch) 33 mL PASHA ISCV EF(MOD-sp4) 68 % PASHA ISCV ESV(MOD-bp) 36 mL PAHSA ISCV EF(MOD-bp) 61 % PASHA ISCV IVSd 10 mm PASHA ISCV LVIDd 47 mm PASHA ISCV LVPWd 9 mm PASHA ISCV LV MASS(C)D 153 g PASHA ISCV [facility] CV ECHO LV MASS INDEX 92 g/m2 PASHA ISCV LV RWT 0.40 mm PASHA ISCV LVIDs 37 mm PASHA ISCV LA dimension 35 mm PASHA ISCV LVOT diam 20 mm PASHA ISCV LVOT AREA 3.1 cm2 PASHA ISCV SV(LVOT) 109 mL PASHA ISCV JOSE(I,D) 1.7 cm2 PASHA ISCV JOSE(VTI)/BSA_ph l 1.0 cm2/m2 PASHA ISCV Ao Root Diam 34 mm PASHA ISCV Asc Ao Diam 38 mm PASHA ISCV MPA diam 25 mm PASHA ISCV MPA area 4.9 cm2 PASHA ISCV MV E Vmax 105.1 cm/s PASHA ISCV Lat E/e' 21.0 PASHA ISCV Sep E/e' 22.4 PASHA ISCV Avg E/e' 21.7 PASHA ISCV MV A Vmax 150.5 cm/s PASHA ISCV MV E/A 0.7 cm/s PASHA ISCV Anatomical Region Laterality Modality Echocardiography Narrative 12/15/2024 12:57 PM EDT Left Ventricle: The left ventricular systolic function is normal. The LVEF as measured by biplane volume is 61%. The diastolic function is indeterminate. The left ventricular filling pressure is elevated. Right Ventricle: The right ventricular systolic function is normal. Aortic Valve: There is a bioprosthetic valve (23 mm Abida 3). There is no valvular regurgitation. There is mild to moderate paravalvular leak. The peak gradient is 25 mmHg. The mean gradient is 13 mmHg. The gradient is normal for this prosthetic valve. Pericardium: No pericardial effusion. Compared to the most recently available prior study, and allowing for differences in image quality and technique, increase paravalvular leak. Left Ventricle Based on the linear dimension and/or 2D volumes, the left ventricle is normal in size. There is normal left ventricular myocardial thickness and mass. The left ventricular systolic function is normal. The LVEF as measured by biplane volume is 61%. The diastolic function is indeterminate. The left ventricular filling pressure is elevated. The left ventricular wall motion is normal. Right Ventricle The right ventricle is normal in size. The right ventricular systolic function is normal. The estimated global right ventricular systolic function based upon the tricuspid annular plane of systolic excursion (TAPSE) is normal (>=17 mm). The estimated global right ventricular systolic function based upon the TDI maximal systolic velocity is normal (>=9.5 cm/s). Right ventricular systolic pressure is normal (<35mmHg). Left Atrium The left atrial size is normal with an indexed volume of 16-34 mL/m2. The interatrial septum is intact with no evidence for an atrial septal defect. Right Atrium The right atrial volume index is normal (18-32mL/m2). IVC/SVC Based on the IVC size and respiratory variation, the estimated right atrial pressure is 3mmHg. Mitral Valve There is mild mitral annular calcification. There is mild mitral regurgitation. The mean mitral valve pressure gradient is estimated to be 3 mmHg at a heart rate of 51 bpm. Tricuspid Valve The tricuspid valve is normal in appearance. There is mild tricuspid regurgitation. There is no tricuspid stenosis. Aortic Valve There is a bioprosthetic valve (23 mm Abida 3). There is no valvular regurgitation. There is mild to moderate paravalvular leak. The peak gradient is 25 mmHg. The mean gradient is 13 mmHg. The estimated aortic valve area by the continuity equation is 1.7 cm2. The gradient is normal for this prosthetic valve. Pulmonic Valve The pulmonic valve is normal in appearance. There is mild pulmonic regurgitation. There is no pulmonic stenosis. Pericardium No pericardial effusion. Great Vessels The aortic root is normal in size. The sinus of Valsalva (aortic root) diameter is 34 mm by leading edge to leading edge method. In the maximally visualized portion, the ascending aorta appears normal in size. The ascending aorta diameter is 38 mm. The main pulmonary artery is normal in size. Study Details A complete transthoracic echocardiogram using two-dimensional (2D), m-mode, color and spectral flow Doppler imaging was performed. During the study the apical, parasternal, subcostal and suprasternal view was captured. Overall the study quality was adequate. Heart rate was bradycardic. Height: 157.5 cm. Weight: 65.8 kg. BSA: 1.67 m2. The heart rhythm during this exam was most suggestive of a sinus rhythm. Study Recommendation Compared to the most recently available prior study, and allowing for differences in image quality and technique, increase paravalvular leak. us Ankita RODRIGUEZ CV ECHO PROCEDURES Vickie l Result documented in this encounter Visit Diagnoses Diagnosis S/P TAVR (transcatheter aortic valve replacement) documented in this encounter Additional Health Concerns Assessment Noted Time PHQ-9 Depression Total Score: 0 12/16/19 25 12:01 PM EDT A fall risk assessment has been complete d for the patient 12/15/2024 12:01 PM EDT A Body Mass Index follow-up plan has been documented for the patient 12/15/2024 12:34 PM EDT documented as of this encounter Care Teams Roof Truss Detailer Relationship Specialty Start Date End Date Onur Guerrero MD PCP - General Family Medicine 01/22/22 documented as of this encounter
--- OUTSIDE RECORDS SUMMARY | 2024-12-15 12:30 | XMS_ITS | Encounter Summary ---
Author Organization Healthcare Address [address] 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 30 [id number] escitalopram (Lexapro) 10 MG tablet Take 1 [...] Upcoming Encounters Date Type Department Care Team ([facility] st Contact Info) Description 01/28/2025 11:20 AM EDT Office Visit [facility] Nephrology, Bone & Mineral Metabolism [address] [facility], [address] [place] [address] Amanda Adams MD [address] [facility] [address] [place] [address] 03/08/2025 1:30 PM EST Appointment [facility] [address] [place] [address] 03/08/2025 3:50 PM EST Office Visit [facility] [address] [place] [address] Vini Lord MD [address] [facility] [address] [place] [phone] 05/18/2025 12:30 PM EST Clinical Support [facility] Head[facility] Neck & Respiratory [address] [facility], 2nd [place] [address] 05/18/2025 1:00 PM EST Office Visit [facility] Res[facility] [address] [facility], 2nd [place] [address] Dominguez Duffy MD [address] [facility] 125 [place] [address] 05/18/2025 1:40 PM EST Office Visit [facility] Res[facility] [address] [facility], 2nd [place] [address] Kassi Ronquillo, [employer] SENIOR OFFICER [address] [place] [address] 11/02/2025 9:30 AM EDT Appointment Medical Office Building Cardiac Diagnostic Testing Medical Office Building Echo Lab [address] [facility], [address] [place] [address] 11/02/2025 11:00 AM EDT Office Visit [facility] [place] [address] [facility], [address] [place] [address] Ankita Vásquez PA [address] [place] [address] documented as of this encounter [...] ECG Atrial Rate 52 BPM MUSE ECG MS Interval 138 ms MUSE ECG QRSD Interval 118 ms MUSE ECG QT Interval 500 ms MUSE ECG QTC Interval 465 ms MUSE ECG P Herndon -18 degrees MUSE ECG R Herndon -22 degrees MUSE ECG T Wave [place] 27 degrees MUSE ECG Diagnosis Sinus bradycardia with occasional premature ventricular complexes MUSE ECG Diagnosis Left ventricular hypertrophy with QRS widening ( R in aVL , Harrison product ) MUSE ECG Diagnosis Abnormal ECG MUSE ECG Diagnosis MUSE ECG Diagnosis Confirmed by Robert Hernandez ([id number]) on 12/15/2024 3:43:34 PM MUSE ECG 12/15/2024 [...] documented as of this encounter Care Teams Soil Science Technical Officer Relationship Specialty Start Date End Date Onur Guerrero MD PCP - General Family Medicine 01/22/22 documented as of this encounter
--- OUTSIDE RECORDS SUMMARY | 2025-01-10 22:38 | XMS_ITS ---
Author Organization [facility] Address [address] [place] [address] Care Team Providers Care Industrial Technician Name Role Phone Onur Guerrero MD [...]
--- OUTSIDE RECORDS SUMMARY | 2025-01-10 22:38 | XMS_ITS | Encounter Summary ---
Author Organization [facility] Address [address] [place] [address] Care Team Providers Care Machine Lay Out Worker Name Role Phone Sarina Lassiter APRN Primary Care Provider [phone] Onur Guerrero MD Primary Care Provider Dyana vailable Laury Jerez LCSW Unavailable Unavailable Encounter Details Date Type Department Care Team (Late Contact Info) Description 05/03/2021 Orders Only External Location [address] [place] [address] Provider, External Social History Tobacco [...] Description 01/28/2025 11:20 AM EDT Office Visit [facility] Nephrology, Bone & Mineral Metabolism [address] [facility], [address] [place] [address] Amanda Adams MD [address] [place] [address] 03/08/2025 1:30 PM EST Appointment [facility] G Radiology [address] [place] [address] 03/08/2025 3:50 PM EST Office Visit [facility] [address] [place] [address] Vini Lord MD 800 [facility] [address] [place] [address] 05/18/2025 12:30 PM EST Clinical Support Pav CC Head, Neck & Respiratory [address] [facility], [address] [place] [address] 05/18/2025 1:00 PM EST Office Visit [facility] Head[facility] Neck & Respiratory [address] [facility], [address] [place] [address] Dominguez Duffy MD [address] [facility] [address] [place] [address] 05/18/2025 1:40 PM EST Office Visit [facility] Head[facility] Neck [facility] Respiratory 800 [facility], [address] [place] [phone] Kassi Ronquillo, CERTIFIED PERFORMANCE TECHNOLOGIST [address] [place] [address] 11/02/2025 9:30 AM EDT Appointment Medical Office Building Cardiac Diagnostic Testing Medical Office Building Echo Lab [address] [facility], [address] [place] [address] 11/02/2025 11:00 AM EDT Office Visit [facility] [place] [address] [facility], [address] [place] [address] Ankita Vásquez PA [address] [place] [address] documented as of this encounter Procedures Procedure [...] documented as of this encounter Care Teams Machine Lay Out Worker Relationship Specialty Start Date End Date Sarina Lassiter APRN [address] [place] [address] PCP - General 09/08/20 01/21/22 Onur Guerrero MD [address] [place] [address] PCP - General Family Medicine 01/22/22 Laury Jerez, [place] [address] Test Kitchen Home Economist Flight Operation Coordinator 08/14/21 08/14/21 documented as of this encounter
--- OUTSIDE RECORDS SUMMARY | 2025-01-10 22:38 | XMS_ITS | Encounter Summary ---
Author Organization Healthcare Address 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 Not on jessica e documented as of this encounter Plan of Treatment Upcoming Encounters Date Type Department Care Team ([facility] Contact Info) Description 01/28/2025 11:20 AM EDT Office Visit [facility] Nephrology, Bone & Mineral Metabolism [address] [facility], [address] [place] [address] Amanda Adams MD [address] [facility] [address] [place] [address] 03/08/2025 1:30 PM EST Appointment [facility] Radiology [address] [place] [address] 03/08/2025 3:50 PM EST Office Visit [facility] 800 [place] [address] Vini Lord MD 800 [facility] [address] [place] [address] 05/18/2025 12:30 PM EST Clinical Support [facility] Head[facility] Neck & Respiratory [address], 2nd [place] [address] 05/18/2025 1:00 PM EST Office Visit [facility] Head[facility] Neck & Respiratory [address], 2nd [place] [address] Dominguez Duffy MD [address] [place] [address] 125 [place] [address] 05/18/2025 1:40 PM EST Office Visit [facility] Head[facility] Neck & Respiratory [address], [address]nd [place] [phone] Kassi Ronquillo, PLASTIC SHEETING CUTTER 800 [place] [address] 11/02/2025 9:30 AM EDT Appointment Medical Office Building Cardiac Diagnostic Testing Medical Office Building Echo Lab [address] [facility], [address] [place] [address] 11/02/2025 11:00 AM EDT Office Visit [facility] [place] [address] [facility], [address] [place] [address] Ankita Vásquez PA 800 [place] [address] documented as of this encounter [...] as of this encounter Care Teams Senior Design Engineer Relationship Specialty Start Date End Date Onur Guerrero MD PCP - General Family Medicine 01/22/22 documented as of this encounter
--- OUTSIDE RECORDS SUMMARY | 2025-01-10 22:38 | XMS_ITS | Encounter Summary ---
Author Organization Healthcare Address [address] [place] [address] Care Team Providers Care Watch Dial Stoner Name Role Phone LassiterSarina Bhavana COLLINS Primary Care Provider [phone]- [phone] Onur Guerrero MD Primary Care Provider Dyana vailable Laury Jerez [employer] MANAGER Unavailable Unavailable Encounter Details Date Type Department Care Team ([facility] Contact Info) Description 05/23/2021 Lab Requisition [facility] H Lab 800 [place] [address] Romelia Monroe MD [address] [place] [address] Nontoxic single thyroid nodule Social History Tobacco [...] Upcoming Encounters Date Type Department Care Team ([facility] Contact Info) Description 01/28/2025 11:20 AM EDT Office Visit [facility] Nephrology, Bone & Mineral Metabolism [address] [facility], [address] [place] [address] Amanda Adams MD [address] [facility] [address] [place] [address] 03/08/2025 1:30 PM EST Appointment [facility] G Radiology [address] [place] [address] 03/08/2025 3:50 PM EST Office Visit [facility] 800 [place] [address] Vini Lord MD [address] [facility] Katarina Johnsonrickson [facility] [address] [place] [address] 05/18/2025 12:30 PM EST Clinical Support [facility] Head, Neck & Respiratory [address] [facility], 2nd [place] [address] 05/18/2025 1:00 PM EST Office Visit [facility] Head, Neck & Respiratory [address] [facility], [address]nd [place] [address] Dominguez Duffy MD [address] [facility] [address] [place] [address] 05/18/2025 1:40 PM EST Office Visit [facility] Head, Neck & Respiratory [address] [facility], [address]nd [place] [address] Kassi Ronquillo, CROCHETER HAND 800 [place] [address] 11/02/2025 9:30 AM EDT Appointment Medical Office Building Cardiac Diagnostic Testing Medical Office Building Echo Lab [address] [facility], [address] [place] [address] 11/02/2025 11:00 AM EDT Office Visit [facility] [place] [address] [facility], [address] [place] [address] Ankita Vásquez PA 800 [place] [address] documented as of this encounter Procedures Procedure Name Priority Date/Time Associated Diagnosis Comments CYTOLOGY CONSULT Routine 05/23/2021 10:3 6 AM EST Nontoxic single thyroid nodule documented in this encounter Results * Cytology Consult (05/23/2021 10:36 AM EST) Case Report Cytology Case: [id number] Authorizing Provider: Romelia Monroe MD Collected: 05/23/2021 1036 Ordering Location: [facility] Lab Received: 05/23/2021 1036 Pathologist: Jj Carrillo MD Specimen: Thyroid, [id number] 05/24/2021 2:49 PM EST [facility] Final Diagnosis OUTSIDE CASE [id number]; COLLECTED 05/02/21 MIDLINE STERNAL NOTCH, FINE NEEDLE ASPIRATION: - MEDULLARY THYROID CARCINOMA, SEE COMMENT. RIGHT NECK, LYMPH NODE, FINE NEEDLE ASPIRATION: - MEDULLARY THYROID CARCINOMA, SEE COMMENT. 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 Cell concentrates from both the midline sternal [...] lymphocytes present. 05/24/2021 2:49 PM EST [facility] Clinical Information E04.1 - Nontoxic single thyroid nodule [ICD-10-CM] 05/24/2021 2:49 PM EST [facility] Gross Description A. CF22-40 For clinical data and diagnosis (A. Malignant B. Malignant) for this specimen (CF22-40/A. Sternal Notch, FNA B. Right Neck Lymph Node, FNA) see final report issued by [facility] Pathology Department. 05/24/2021 2:49 PM EST [facility] Note: A resident was involved in the service. I attest I examined the relevant preparations for the specimens and confirmed the diagnosis or interpretation. 05/24/2021 2:[address] PM [address] [facility] Fine Needle Aspirate Thyroid structure / Unknown 05/23/2021 10:36 AM EST 05/23/2021 10:36 AM EST Romelia Monroe MD LAB PATHOLOGY ORDERABLES F inal Result 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 documented in this encounter Additional Health Concerns Infection Onset Date Last Indicated Resolved Time COVID-19 Rule-Out 08/14/2021 08/14/2021 08/14/2021 3:07 PM EDT Assessment Noted Time A fall risk assessment has been complete d for the patient 05/21/2021 1:47 PM EST documented as of this encounter Care Teams Watch Dial Stoner Relationship Specialty Start Date End Date Sarina Lassiter, CROCHETER HAND [address] [place], [place] [phone] PCP - General 09/08/20 01/21/22 Onur Guerrero MD [address] [place] [address] PCP - General Family Medicine 01/22/22 Laury Jerez, [place] [address] Patient Financial Services Specialist Machine Operator Hop Worker 08/14/21 08/14/21 documented as of this encounter
--- OUTSIDE RECORDS SUMMARY | 2025-01-10 22:38 | XMS_ITS | Encounter Summary ---
Author Organization Healthcare Address [address] 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 Not on fi [...] Description 01/28/2025 11:20 AM EDT Office Visit [facility] Nephrology, Bone & Mineral Metabolism [address] [facility], [address] [place] [address] Amanda Adams MD [address] [facility] [address] [place] [address] 03/08/2025 1:30 PM EST Appointment [facility] G Radiology [address] [place] [address] 03/08/2025 3:50 PM EST Office Visit [facility] 800 [place] [address] Vini Lord MD 800 [facility] [address] [place] [address] 05/18/2025 12:30 PM EST Clinical Support [facility] Head, Neck & Respiratory [address] [facility], [address]nd [place] [address] 05/18/2025 1:00 PM EST Office Visit [facility] Head, Neck & Respiratory [address] [facility], [address]nd [place] [address] Dominguez Duffy MD [address] [place] [address] 125 [place] [address] 05/18/2025 1:40 PM EST Office Visit [facility] Head, Neck & Respiratory [address] [facility], [address]nd [place] [address] Kassi Ronquillo, DRAG DOWN 800 [place] [address] 11/02/2025 9:30 AM EDT Appointment Medical Office Building Cardiac Diagnostic Testing Medical Office Building Echo Lab [address] [facility], [address] [place] [address] 11/02/2025 11:00 AM EDT Office Visit [facility] [place] [address] [facility], [address] [place] [address] Ankita Vásquez PA 800 [place] [address] documented as of this encounter Procedures Procedure Name Priority Date/Time Associated Diagnosis Comments AP MISCELLANEOUS LAB TEST (SO) Routine 09/10/2021 12:00 AM EDT Malignant neoplasm of thyroid gland (CMS/HCC) documented in this encounter Results * - Miscellaneous Test (09/10/2021 12:00 AM EDT) Test name DC Profile-Ca ris 09/28/2021 9:31 AM EDT [facility]ALTH[facility]ARE LAB Comment:[id number] A4 Test Result see scan 09/28/2021 9:31 AM EDT [facility] See Scanned Result 09/28/2021 9:31 AM EDT [facility] Tissue 09/10/2021 09/10/2021 2:5 4 PM EDT us Onur Shipman MD LAB REF LAB BLOOD AND FLUID ORD Final Result [facility] HEALTHCARE LAB [address] [place] [address] documented in this encounter Visit Diagnoses Diagnosis Malignant neoplasm of thyroid gland (CMS/HCC) Malignant neoplasm of thyroid gland documented in this encounter Additional Health Concerns Assessment Noted Time A fall risk assessment has been complete d for the patient 08/21/2021 12:36 PM EDT documented as of this encounter Care Teams Auto Glass Installer Relationship Specialty Start Date End Date Sarina Lassiter APRN [address] [place] [address] PCP - General 09/08/20 01/21/22 Onur Guerrero MD [address] [place] [address] PCP - General Family Medicine 01/22/22 documented as of this encounter
--- OUTSIDE RECORDS SUMMARY | 2025-01-10 22:38 | XMS_ITS | Clinical Summary ---
[facility] [address] [place] [id number] Care Team Providers Care Grinding Machine Operator Portable Name Role Phone Provider, No Known Primary [...] season) 2024 INFLUENZA VACCINE 01/26/2025 Care Teams Grinding Machine Operator Portable Relationship Specialty Start Date End Date Provider, [place] [address] PCP - General 06/24/16
--- OUTSIDE RECORDS SUMMARY | 2025-01-10 22:38 | XMS_ITS | Clinical Summary ---
Author Organization [facility] Address [address] [place] [address] Care Team Providers Care Oil Pipeline Dispatcher Name Role Phone Onur Guerrero MD Primary [...] Description 12/15/2024 12:30 PM EDT Office Visit [facility] [address] [facility], [address] [place] [address] Ankita Vásquez PA Status post transcatheter aortic valve replacement (Primary Dx); Essential hypertension 12/15/2024 10:38 AM EDT - 12/15/2024 11:59 PM EDT Hospital Encounter Medical Office Building Cardiac Diagnostic Testing Medical Office Building Echo Lab [address], [address] [place] [address] S/P TAVR (transcatheter aortic valve replacement) Discharge Disposition: Home or Self Care 12/15/2024 Travel 11/18/2024 Telephone [facility] [address] [facility], 2nd [place] [address] Milagros Perry RN 11/17/2024 1:00 PM EDT Office Visit [facility] [address] [phone] Kassi Ronquillo APRN Status post transcatheter aortic valve replacement (Primary Dx); Encounter for monitoring cardiotoxic drug therapy; Essential hypertension; High risk medication use 11/17/2024 11:45 AM EDT Clinical Support [facility] [address] [phone] Hyponatremia 11/17/2024 11:00 AM EDT Office Visit [facility] [address] [phone] Dominguez Duffy MD Postoperative hypothyroidism (Primary Dx); Postsurgical hypoparathyroidism (CMS/HCC); Hyponatremia; Medullary carcinoma of thyroid, isolated; Essential hypertension; Hyperglycemia 11/17/2024 Results Follow-Up [facility] [address] [phone] Dominguez Duffy MD 11/17/2024 Travel 11/15/[address] 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) 11/02/2024 10:21 AM EDT - 11/02/2024 11:59 PM EDT Hospital Encounter [facility] Radiology [address] [place] [address] Medullary carcinoma of thyroid, isolated Discharge Disposition: Home or Self Care 11/02/2024 Travel 10/27/2024 1:40 PM EDT Office Visit [facility] Nephrology, Bone & Mineral Metabolism [address], [address] [place] [address] Amanda Adams MD CKD (chronic kidney disease) stage 2, GFR 60-89 ml/min (Primary Dx); Other secondary hypertension 10/27/2024 Travel 10/27/2024 Orders Only [facility] [address] [place] [address] Vini Lord MD 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) (Primary Dx) 10/22/2024 Travel 10/21/2024 12:43 PM EDT Anesthesia Event Cardiac Sec Accountant [address] [place] [address] Yong Agudelo MD Cline, David D, 10/21/2024 12:00 PM EDT - 10/21/2024 2:30 PM EDT Surgery Cardiac Sec Accountant 800 [place] [address] Kane Hidalgo MD TAVR [[id number] (CPT )] 10/21/2024 10:10 AM EDT - 10/22/2024 12:18 PM EDT Hospital Encounter [facility] H Inpatient 800 [place] [address] Kane Hidalgo MD Nonrheumatic aortic [...] Start Date Job End 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 Not on fi [...] Description 01/28/2025 11:20 AM EDT Office Visit [facility] Nephrology, Bone & Mineral Metabolism [address], [address] [place] [address] Amanda Adams MD [address] [facility] [address] [place] [phone] 03/08/2025 1:30 PM EST Appointment [facility] Radiology [address] [place] [phone] 03/08/2025 3:50 PM EST Office Visit [facility] [address] [place] [address] Vini Lord MD 800 [facility] [address] [place] [phone] 05/18/2025 12:30 PM EST Clinical Support [facility] [address] [facility], 2nd [place] [phone] 05/18/2025 1:00 PM EST Office Visit [facility] [address] [facility] [place] [phone] Dominguez Duffy MD Formerly [facility] [address] [place] [phone] 05/18/2025 1:40 PM EST Office Visit [facility] [address] [facility], [address] [place] [phone] Kassi Ronquillo, SHIP CONSTRUCTION TEACHER [address] [place] [address] 11/02/2025 9:30 AM EDT Appointment Medical Office Building Cardiac Diagnostic Testing Medical Office Building Echo Lab [address] [facility] [facility], [address] [place] [address] 11/02/2025 11:00 AM EDT Office Visit [facility] [address], [address] [place] [address] Ankita Vásquez PA 800 [place] [address] Health Maintenance Due Date Last [...] or (1 - 1-dose 75+ series) 2017 [id number] Vaccine (4 - season) 2024 02/22/2021, 06/29/2020, [...] this topic Medical Devices Implanted Type Area Emergency Vehicle Driver Device Identifier Shelf Expiration Date Model / Serial / Lot Valve Kit Abida 3 Ultra Tavr 23mm - [id number] Implanted:Qty: 1 on 10/21/2024 by Kane Hidalgo MD at [facility]-[id number] 05/10/2027 [id number] / / [id number] Procedures Procedure Name Priority Date/Time Associated Diagnosis [...] ECG Atrial Rate 52 BPM MUSE ECG AL Interval 138 ms MUSE ECG QRSD Interval 118 ms MUSE ECG QT Interval 500 ms MUSE ECG QTC Interval 465 ms MUSE ECG P Parlier -18 degrees MUSE ECG R Parlier -22 degrees MUSE ECG T Wave Parlier 27 degrees MUSE ECG Diagnosis Sinus bradycardia with occasional premature ventricular complexes MUSE ECG Diagnosis Left ventricular hypertrophy with QRS widening ( R in aVL , Donnelly product ) MUSE ECG Diagnosis Abnormal ECG MUSE ECG Diagnosis MUSE ECG Diagnosis Confirmed by Robert Hernandez ([id number]) on 12/15/2024 3:43:34 PM MUSE ECG 12/15/2024 [...] Urine 86 mmol/L 11/17/2024 1:41 PM EDT [facility] Urine Urine specimen obtained by clean catch procedure / Unknown Non-blood Collection / Unknown 11/17/2024 1:01 PM EDT 11/17/2024 1:22 PM EDT us Dominguez Duffy MD LAB URINE ORDERABLES Final Resu lt [facility] [address] [place] [address] * (ABNORMAL) Basic Metabolic Panel, Plasma (11/17/2024 1:01 PM EDT) Only the most recent of4 resultswithin the time period is included. Glucose, Plasma 102(H) 74 - 99 mg/dL 11/17/2024 1:36 PM EDT [facility] BUN, Plasma 17 8 - 23 mg/dL 11/17/2024 1:36 PM EDT [facility] Creatinine, Plasma 1.00 0.60 - 1.10 mg/dL 11/17/2024 1:36 PM EDT [facility] BUN/Creatinine Ratio 17 11/17/2024 1:36 PM EDT [facility] Sodium, Plasma 135(L) 136 - 145 mmol/L 11/17/2024 1:36 PM EDT [facility] Potassium, Plasma 4.2 3.6 - 4.9 mmol/L 11/17/2024 1:36 PM EDT [facility] Chloride, Plasma 97 97 - 107 mmol/L 11/17/2024 1:36 PM EDT [facility] CO2, Plasma 23 22 - 29 mmol/L 11/17/2024 1:36 PM EDT [facility] Anion Gap 15 6 - 16 mmol/L 11/17/2024 1:36 PM EDT [facility] Total Calcium, Plasma 9.4 8.9 - 10.2 mg/dL 11/17/2024 1:36 PM EDT [facility] eGFRcr 56.4 mL/min/1.7 3m*2 11/17/2024 1:36 PM EDT [facility] Comment:Reported eGFRcr in m L/min/1.73m2 is based the CKD-EPI 2020 equation that does not use a race coefficient. Blood Venous blood specimen / Unknown Venipuncture / Unknown 11/17/2024 1:01 PM EDT 11/17/2024 1:08 PM EDT us Dominguez Duffy MD LAB BLOOD ORDERABLES Final Resu lt [facility] [address] [place] [address] * Morphology (11/02/2024 1:57 PM EDT) RBC Morphology Slide Reviewed LAB HEMATOLOGY METHOD 11/02/2024 3:00 PM EDT [facility] Clumped Platelets Present LAB HEMATOLOGY METHOD 11/02/2024 3:00 PM EDT [facility] Blood Venous blood specimen / Unknown Venipuncture / Unknown 11/02/2024 1:57 PM EDT 11/02/2024 2:19 PM EDT us Vini Lord MD LAB BLOOD ORDERABLES Final R esult Performing Organization Address City/[facility]/ZIP Co de Phone Number [facility] [address] [place] [address] * (ABNORMAL) Calcitonin (11/02/2024 1:57 PM EDT) Pathologist [facility] Calcitonin 638.0(H) 0.0 - 5.1 pg/mL 11/04/2024 4:[address] [facility]) Blood Venous blood specimen / Unknown Venipuncture / Unknown 11/02/2024 1:57 PM EDT 11/02/2024 2:[address] [facility]) - 11/04/2024 4:37 PM EDT [...] or absence of malignant disease. Performed By: [facility] [address] [place] [address] Moving Picture Operator: Frederick Rincon MD, PhD CLIA Number: [id number] Vini Lord MD LAB BLOOD ORDERABLES Final R esult [facility]) [address] [place] [address] * (ABNORMAL) CBC and differential (11/02/2024 1:57 PM EDT) [facility] WBC Count 9.12 3.70 - 10.30 10*3/uL LAB HEMATOLOGY METHOD 11/02/2024 3:00 PM EDT [facility] RBC Count 4.53 3.90 - 5.20 10*6/uL LAB HEMATOLOGY METHOD 11/02/2024 3:00 PM EDT [facility] HGB 12.1 11.2 - 15.7 g/dL LAB HEMATOLOGY METHOD 11/02/2024 3:00 PM EDT [facility] HCT 37.4 34.0 - 45.0 % LAB HEMATOLOGY METHOD 11/02/2024 3:00 PM EDT [facility] Platelet Count 192 155 - 369 10*3/uL LAB HEMATOLOGY METHOD 11/02/2024 3:00 PM EDT [facility] MCV 83 79 - 98 fL LAB HEMATOLOGY METHOD 11/02/2024 3:00 PM EDT [facility] Comment:Not Measured. MCH 26.7 26.0 - 32.0 pg LAB HEMATOLOGY METHOD 11/02/2024 3:00 PM EDT [facility] Comment:Not Measured MCHC 32.4 30.7 - 35.5 g/dL LAB HEMATOLOGY METHOD 11/02/2024 3:00 PM EDT [facility] Comment:Not Measured RDW 17.0(H) 11.5 - 14.5 % LAB HEMATOLOGY METHOD 11/02/2024 3:00 PM EDT [facility] Comment:Not Measured. MPV LAB HEMATOLOGY METHOD 11/02/2024 [facility] Comment:Not Measured nRBC 0.0 <=0.0 per 100 WBCs LAB HEMATOLOGY METHOD 11/02/2024 3:00 PM EDT [facility] Differential Type Automated LAB HEMATOLOGY METHOD 11/02/2024 3:00 PM EDT [facility] Neutrophils % 76 % LAB HEMATOLOGY METHOD 11/02/2024 3:00 PM EDT [facility] Lymphocytes % 16 % LAB HEMATOLOGY METHOD 11/02/2024 3:00 PM EDT [facility] Monocytes % 5 % LAB HEMATOLOGY METHOD 11/02/2024 3:00 PM EDT [facility] Eosinophils % 1 % LAB HEMATOLOGY METHOD 11/02/2024 3:00 PM EDT [facility] Basophils % 1 % LAB HEMATOLOGY METHOD 11/02/2024 3:00 PM EDT [facility] Immature Granulocytes % 1 % LAB HEMATOLOGY METHOD 11/02/2024 3:00 PM EDT [facility] Neutrophils Absolute 7.01(H) 1.60 - 6.10 10*3/uL LAB HEMATOLOGY METHOD 11/02/2024 3:00 PM EDT [facility] Lymphocytes Absolute 1.47 1.20 - 3.90 10*3/uL LAB HEMATOLOGY METHOD 11/02/2024 3:00 PM EDT [facility] Monocytes Absolute 0.46 0.30 - 0.90 10*3/uL LAB HEMATOLOGY METHOD 11/02/2024 3:00 PM EDT [facility] Eosinophils Absolute 0.07 0.00 - 0.50 10*3/uL LAB HEMATOLOGY METHOD 11/02/2024 3:00 PM EDT [facility] Basophils Absolute 0.05 0.00 - 0.10 10*3/uL LAB HEMATOLOGY METHOD 11/02/2024 3:00 PM EDT [facility] Immature Granulocytes Absolute 0.06 0.00 - 0.06 10*3/uL LAB HEMATOLOGY METHOD 11/02/2024 3:00 PM EDT [facility] Blood Venous blood specimen / Unknown Venipuncture / Unknown 11/02/2024 1:57 PM EDT 11/02/2024 2:19 PM EDT Narrative [facility] - 11/02/2024 3:00 PM EDT Therapeutic decision making should be based on absolute values, rather than percentages. us Vini Lord MD LAB BLOOD ORDERABLES Final R esult Performing Organization Address City/[facility] Co de Phone Number [facility] [address] [place] [address] * TSH (11/02/2024 1:57 PM EDT) Thyroid Stimulating Hormone, Plasma 3.18 0.40 - 4.20 uIU/mL 11/02/2024 3:51 PM EDT [facility] Blood Venous blood specimen / Unknown Venipuncture / Unknown 11/02/2024 1:57 PM EDT 11/02/2024 2:48 PM EDT Vini Lord MD LAB BLOOD ORDERABLES Final R esult Performing Organization Address City/[facility] Co de Phone Number [facility] [address] [place] [address] * (ABNORMAL) Magnesium (11/02/2024 1:57 PM EDT) Only the most recent of2 resultswithin the time period is included. Magnesium, Plasma 1.8(L) 1.9 - 2.4 mg/dL 11/02/2024 3:51 PM EDT [facility] Blood Venous blood specimen / Unknown Venipuncture / Unknown 11/02/2024 1:57 PM EDT 11/02/2024 2:48 PM EDT Vini Lord MD LAB BLOOD ORDERABLES Final R esult Performing Organization Address [facility] Co de Phone Number [facility] [address] [place] [address] * (ABNORMAL) CEA (11/02/2024 1:57 PM EDT) CEA, Serum 8.3(H) <4.0 ng/mL 11/02/2024 3:26 PM EDT [facility] Blood Venous blood specimen / Unknown Venipuncture / Unknown 11/02/2024 1:57 PM EDT 11/02/2024 2:49 PM EDT Narrative [facility] - 11/02/2024 3:26 PM EDT Normal range for smokers: < 5.5 ng/ml Normal range for non-smokers: <=4.0 ng/ml Performed by Home electrochemiluminescent immunoassay. Results obtained with different test methods or kits cannot be used interchangeably. Vini Lord MD LAB BLOOD ORDERABLES Final R esult Performing Organization Address [facility] Co de Phone Number [facility] [address] [place] [address] * (ABNORMAL) Comprehensive metabolic panel (11/02/2024 1:57 PM EDT) Glucose, Plasma 143(H) 74 - 99 mg/dL 11/02/2024 3:51 PM EDT [facility] BUN, Plasma 16 8 - 23 mg/dL 11/02/2024 3:51 PM EDT [facility] Creatinine, Plasma 0.93 0.60 - 1.10 mg/dL 11/02/2024 3:51 PM EDT [facility] BUN/Creatinine Ratio 17 11/02/2024 3:51 PM EDT [facility] Sodium, Plasma 131(L) 136 - 145 mmol/L 11/02/2024 3:51 PM EDT [facility] Potassium, Plasma 3.8 3.6 - 4.9 mmol/L 11/02/2024 3:51 PM EDT [facility] Chloride, Plasma 93(L) 97 - 107 mmol/L 11/02/2024 3:51 PM EDT [facility] CO2, Plasma 19(L) 22 - 29 mmol/L 11/02/2024 3:51 PM EDT [facility] Anion Gap 19(H) 6 - 16 mmol/L 11/02/2024 3:51 PM EDT [facility] Total Calcium, Plasma 9.0 8.9 - 10.2 mg/dL 11/02/2024 3:51 PM EDT [facility] Total Protein 7.2 6.3 - 7.9 g/dL 11/02/2024 3:51 PM EDT [facility] Albumin, Plasma 4.0 3.5 - 5.2 g/dL 11/02/2024 3:51 PM EDT [facility] AST, Plasma 23 10 - 35 U/L 11/02/2024 3:51 PM EDT [facility] Comment:Hemolyzed, result ma y be falsely increased. ALT, Plasma 19 10 - 35 U/L 11/02/2024 3:51 PM EDT [facility] Alkaline Phosphatase, Plasma 73 46 - 142 U/L 11/02/2024 3:51 PM EDT [facility] Total Bilirubin, Plasma 0.5 0.2 - 1.1 mg/dL 11/02/2024 3:51 PM EDT [facility] eGFRcr 61.5 mL/min/1.7 3m*2 11/02/2024 3:51 PM EDT [facility] Comment:Reported eGFRcr in m L/min/1.73m2 is based the CKD-EPI 2020 equation that does not use a race coefficient. Blood Venous blood specimen / Unknown Venipuncture / Unknown 11/02/2024 1:57 PM EDT 11/02/2024 2:48 PM EDT us Vini Lord MD LAB BLOOD ORDERABLES Final R esult [facility] [address] [place] [address] * CT Abdomen Pelvis w IV Contrast [...] Total DLP (Dose-Length Product): 1143.45 mGy.cm (accession [id number]), 1143.45 mGy.cm (accession [id number]). Please note: The reported value represents the [...] Total DLP (Dose-Length Product): 1143.45 mGy.cm (accession [id number]),1143.45 mGy.cm (accession [id number]). Please note: The reported valuerepresents the total [...] Total DLP (Dose-Length Product): 1143.45 mGy.cm (accession [id number]), 1143.45 mGy.cm (accession [id number]). Please note: The reported value represents the [...] Total DLP (Dose-Length Product): 1143.45 mGy.cm (accession [id number]),1143.45 mGy.cm (accession [id number]). Please note: The reported valuerepresents the total [...] error, please notify the sender immediately at [phone] and permanently delete the original report and destroy any copies or printouts. 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 There is trace paravalvular leak. The [...] MD on 10/22/2024 8:51 AM Khanh Galindo SHIP CONSTRUCTION TEACHER IMG XR PROCEDURES Final Res ult * (ABNORMAL) CBC (10/22/2024 12:07 AM EDT) Only the most recent of3 resultswithin the time period is included. WBC Count 13.53(H) 3.70 - 10.30 10*3/uL LAB HEMATOLOGY METHOD 10/22/2024 12:34 AM EDT [facility] RBC Count 4.54 3.90 - 5.20 10*6/uL LAB HEMATOLOGY METHOD 10/22/2024 12:34 AM EDT [facility] HGB 12.1 11.2 - 15.7 g/dL LAB HEMATOLOGY METHOD 10/22/2024 12:34 AM EDT [facility] HCT 36.9 34.0 - 45.0 % LAB HEMATOLOGY METHOD 10/22/2024 12:34 AM EDT [facility] Platelet Count 292 155 - 369 10*3/uL LAB HEMATOLOGY METHOD 10/22/2024 12:34 AM EDT [facility] MCV 81 79 - 98 fL LAB HEMATOLOGY METHOD 10/22/2024 12:34 AM EDT [facility] MCH 26.7 26.0 - 32.0 pg LAB HEMATOLOGY METHOD 10/22/2024 12:34 AM EDT [facility] MCHC 32.8 30.7 - 35.5 g/dL LAB HEMATOLOGY METHOD 10/22/2024 12:34 AM EDT [facility] RDW 15.8(H) 11.5 - 14.5 % LAB HEMATOLOGY METHOD 10/22/2024 12:34 AM EDT [facility] MPV 9.0 8.8 - 12.5 fL LAB HEMATOLOGY METHOD 10/22/2024 12:34 AM EDT [facility] nRBC 0.0 <=0.0 per 100 WBCs LAB HEMATOLOGY METHOD 10/22/2024 12:34 AM EDT [facility] Blood Venous blood specimen / Unknown Venipuncture / Unknown 10/22/2024 12:07 AM EDT 10/22/2024 12:20 AM EDT Khanh Galindo APRN LAB BLOOD ORDERABLES Final Result [facility] [address] [place] [address] * Daisy auris Surveillance by PCR (10/21/2024 5:27 PM EDT) Daisy auris PCR Result Not Detected Not Detected 10/22/2024 1:29 PM EDT [facility] Swab (Axilla and Groin) Non-blood Collection / Unknown 10/21/2024 5:27 PM EDT 10/21/2024 5:38 PM EDT Narrative [facility] - 10/22/2024 1:29 PM EDT This PCR assay was developed and its performance characteristics determined by [facility] as appropriate for clinical purposes. This assay has not been cleared or approved by the FDA, but is performed in a CLIA regulated laboratory that is qualified to perform high-complexity testing. Kane Hidalgo MD LAB [facility]BIOLOGY [facility] Final Result Performing Organization Address [facility]/ZIP Co de Phone Number [facility] [address] [place] [address] * Multi Drug Resistance Test (10/21/2024 5:27 PM EDT) Pathologist [facility] Culture No growth at day 1 10/22/2024 8:22 PM EDT [facility] Swab (Nares and Vilma Rectal) Non-blood Collection / Unknown 10/21/2024 5:27 PM EDT 10/21/2024 5:38 PM EDT Narrative [facility] - 10/22/2024 8:22 PM EDT This test was developed and its performance characteristics determined by the [facility]. Although the media is FDA-approved, it is not FDA-approved for all specimen types submitted. The FDA has determined that such clearance or approval is not necessary. This test is used for surveillance purposes. It should not be regarded as investigational or for research. The [facility] is certified under the Clinical Laboratory Improvement Amendments of 1988 (CLIA-88) as qualified to perform high complexity clinical laboratory testing. Kane Hidalgo MD LAB MICROBIOLOGY - GENERAL [place] [facility] Final Result Performing Organization Address City/[facility]/ZIP Co de Phone Number [address] [address] * ECHO, ADULT TRANSTHORACIC LIMITED W/ COLOR [...] and technique, now s/p HODA. us Kane Hidlago MD CV ECHO PROCEDURES Final Result * [...] Cardiothoracic Surgery physicians. The primary Interventional Cardiology thermospray operator was Dr. Kane Hidalgo and the primary Cardiothoracic Surgery thermospray operator was Dr. Neelima Gray. The procedure, [...] 11/01/2024 9:14 AM EDT [facility] Electric Knife Operator ID Nabila Aguilera 11/01/2024 9:14 AM EDT HEALTH[facility]ARE LAB ACT Device ID [id number] 11/01/2024 9:14 AM EDT [facility] Comment 11/01/2024 9:14 AM EDT [facility] Comment: ACT performed by staff [...] UNSOLICITED RESULTS Final Result [facility] [address] LAB [address] [place] [address] * POCT creatinine (10/21/2024 10:46 AM EDT) Creatinine, Point of Care 1.0 0.6 - 1.1 mg/dL 10/21/2024 10:49 AM EDT [facility] POCT eGFR 56 mL/min/1. 73m*2 10/21/2024 10:49 AM EDT [facility] Electric Knife Operator ID Jerardo Lowe 10/21/2024 10:49 AM EDT [facility] Device ID [id number] 10/21/2024 10:49 AM EDT [facility] Comment 10/21/2024 10:49 AM EDT [facility] Comment:Testing performed on i-STAT at the point of care. Reported eGFRcr in mL/min/1.73m2 is based the CKD-EPI 2020 equation that does not use a race coefficient. Blood Venous blood specimen / Unknown 10/21/2024 10:46 AM EDT 10/21/2024 10:49 AM EDT us Kane Hidalgo MD LAB POINT OF CARE TE ST DOCKED DEVICE UNSOLICITED RESULTS Final Result Performing Organization Address City/[facility]/ZIP Co de Phone Number [facility] [address] [place] [address] [place] [address] * N-Terminal Probnp (10/21/2024 10:41 AM EDT) N-Terminal, PROBNP, Plasma 496 0 - 1,799 pg/mL 10/21/2024 11:25 AM EDT [facility] Blood Venous blood specimen / Unknown Venipuncture / Unknown 10/21/2024 10:41 AM EDT 10/21/2024 10:55 AM EDT us Ankita RODRIGUEZ LAB BLOOD ORDERABLES Fi nal Result Performing Organization Address City/[facility]/ZIP Co de Phone Number [facility] [address] [place] [address] * Type and Screen (10/21/2024 10:41 AM [...] ORD ERABLES Final Result Performing Organization Address [facility] Co de Phone Number BLOOD BANK [address] * (ABNORMAL) Hemoglobin A1c (11/19/2023 4:15 [...] Adults <6.0% Children and Adolescents <7.5% Source: [place] [employer]. Standards of medical care in diabetes,2017. Diabetes Care.2017:40 (suppl 1):S1-S135. HbA1c assay performed by an ion-exchange chromatography method that is certified traceable to the DCCT. us Dominguez Duffy MD LAB BLOOD ORDERABLES Final Resu lt Performing Organization Address City/[facility] Co de Phone Number HEALTHCARE LAB [address] [place] [address] from Last 3 Months or Most Recently Relevant to Health Maintenance Insurance [facility] MEDICARE Advance Directives * Full Code (Latest [...] Patient has decision-making capacity? Yes Care Teams Oil Pipeline Dispatcher Relationship Specialty Start Date End Date Onur Guerrero MD PCP - General Family Medicine 01/22/22
--- OUTSIDE RECORDS SUMMARY | 2025-01-10 22:39 | XMS_ITS | Encounter Summary ---
Author Organization Healthcare Address [address] 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 Pls advise of my message. TY. * Result Encounter Note - Dominguez Duffy MD - 11/17/2024 6:27 PM EDT Serum sodium 135, borderline low but improved and Urine sodium is high. Recommend to decrease the water intake from 4 bottles (this is what she reported drinking) to 3.5 or 3 per day. documented in this encounter Plan of Treatment Upcoming Encounters Date Type Department Care Team ([facility] st Contact Info) Description 01/28/2025 11:20 AM EDT Office Visit [facility] Nephrology, Bone & Mineral Metabolism [address] [facility], [address] [place] [address] Amanda Adams MD [address] [facility] [address] [place] [address] 03/08/2025 1:30 PM EST Appointment [facility] Radiology [address] [place] [phone] 03/08/2025 3:50 PM EST Office Visit [facility] Mult[facility]isciplinary Oncology [facility] [address] [place] [address] Vini Lord MD [address] [facility] [address] [place] [phone] 05/18/2025 12:30 PM EST Clinical Support Pav CC Head, Neck & Respiratory [address] [facility], 2nd [place] [address] 05/18/2025 1:00 PM EST Office Visit Pav [facility] Head, Neck & Respiratory [address] [facility], 2nd [place] [address] Dominguez Duffy MD [address] [facility] [address] [place] [address] 05/18/2025 1:40 PM EST Office Visit [facility] Head, Neck & Respiratory [address] [facility], 2nd [place] [address] Kassi Ronquillo, SKIN THERAPIST [address] [place] [address] 11/02/2025 9:30 AM EDT Appointment Medical Office Building Cardiac Diagnostic Testing Medical Office Building Echo Lab [address] [facility], [address] [place] [address] 11/02/2025 11:00 AM EDT Office Visit [facility] [place] [address] [facility], [address] [place] [address] Ankita Vásquez PA [address] [place] [address] documented as of this encounter [...] documented as of this encounter Care Teams Cafe Attendant Relationship Specialty Start Date End Date Onur Guerrero MD PCP - General Family Medicine 01/22/22 documented as of this encounter
--- OUTSIDE RECORDS SUMMARY | 2025-01-10 22:39 | XMS_ITS | Encounter Summary ---
Author Organization Healthcare Address [address] 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 Not on fi [...] Upcoming Encounters Date Type Department Care Team ([facility] st Contact Info) Description 01/28/2025 11:20 AM EDT Office Visit [facility] Nephrology, Bone & Mineral Metabolism [address] [facility], [address] [place] [address] Amanda Adams MD [address] [facility] [address] [place] [address] 03/08/2025 1:30 PM EST Appointment [facility] Radiology [address] [place] [address] 03/08/2025 3:50 PM EST Office Visit [facility] [address] [place] [address] Vini Lord MD 800 [facility] [address] [place] [address] 05/18/2025 12:30 PM EST Clinical Support Pav CC Head, Neck & Respiratory [address] [facility], 2nd [place] [address] 05/18/2025 1:00 PM EST Office Visit Pav [facility] Head, Neck & Respiratory [address] [facility], 2nd [place] [address] Dominguez Duffy MD [address] [facility] [address] [place] [address] 05/18/2025 1:40 PM EST Office Visit Pav [facility] Head, Neck & Respiratory [address] [facility], 2nd [place] [address] Kassi Ronquillo, SURGICAL APPLIANCE FITTER [address] [place] [address] 11/02/2025 9:30 AM EDT Appointment Medical Office Building Cardiac Diagnostic Testing Medical Office Building Echo Lab [address] [facility], [address] [place] [address] 11/02/2025 11:00 AM EDT Office Visit [facility] [place] [address] [facility], [address] [place] [address] Ankita Vásquez PA [address] [place] [address] documented as of this encounter [...] documented as of this encounter Care Teams Aircraft Life Support Fitter Relationship Specialty Start Date End Date Onur Guerrero MD PCP - General Family Medicine 01/22/22 documented as of this encounter
--- OUTSIDE RECORDS SUMMARY | 2025-01-10 22:39 | XMS_ITS | Encounter Summary ---
Author Organization Healthcare Address [address] 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 Not on fi [...] Description 01/28/2025 11:20 AM EDT Office Visit [facility] Nephrology, Bone & Mineral Metabolism [address] [facility], [address] [place] [address] Amanda Adams MD [address] [facility] [address] [place] [address] 03/08/2025 1:30 PM EST Appointment [facility] Radiology [address] [place] [address] 03/08/2025 3:50 PM EST Office Visit [facility] [address] [place] [address] Vini Lord MD 800 [facility] [address] [place] [address] 05/18/2025 12:30 PM EST Clinical Support Pav CC Head, Neck & Respiratory 800 [facility], [address] [place] [address] 05/18/2025 1:00 PM EST Office Visit Pav CC Head, Neck & Respiratory 800 [facility] 2nd [place] [address] Dominguez Duffy MD [address] [facility] [address] [place] [address] 05/18/2025 1:40 PM EST Office Visit Pav [facility] Head, Neck & Respiratory 800 [facility], [address] [place] [address] Kassi Ronquillo, KARINA [address] [place] [address] 11/02/2025 9:30 AM EDT Appointment Medical Office Building Cardiac Diagnostic Testing Medical Office Building Echo Lab [address] [facility], [address] [place] [address] 11/02/2025 11:00 AM EDT Office Visit [facility] [place] [address] [facility], [address] [place] [address] Ankita Vásquez PA [address] [place] [address] documented as of this encounter Visit [...] documented as of this encounter Care Teams Telecommunications Operator Relationship Specialty Start Date End Date Onur Guerrero MD PCP - General Family Medicine 01/22/22 documented as of this encounter
--- OUTSIDE RECORDS SUMMARY | 2025-01-10 22:39 | XMS_ITS | Encounter Summary ---
Author Organization Healthcare Address [address] 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 Not on jessica e documented as of this encounter Plan of Treatment Upcoming Encounters Date Type Department Care Team (Late st Contact Info) Description 01/28/2025 11:20 AM EDT Office Visit [facility] Nephrology, Bone & Mineral Metabolism [address] [facility], [address] [place] [address] Amanda Adams MD [address] [facility] [address] [place] [address] 03/08/2025 1:30 PM EST Appointment PAV G Radiology [address] [place] [address] 03/08/2025 3:50 PM EST Office Visit [facility] [address] [place] [address] Vini Lord MD 800 [facility] [address] [place] [address] 05/18/2025 12:30 PM EST Clinical Support Pav CC Head, Neck & Respiratory [address] [facility], 2nd [place] [address] 05/18/2025 1:00 PM EST Office Visit Pav [facility] Head, Neck & Respiratory [address] [facility], 2nd [place] [address] Dominguez Duffy MD [address] [facility] 125 [place] [address] 05/18/2025 1:40 PM EST Office Visit Pav [facility] Head, Neck & Respiratory [address] [facility], 2nd [place] [address] Kassi Ronquillo, JUNIOR AUTOMATION ENGINEER [address] [place] [address] 11/02/2025 9:30 AM EDT Appointment Medical Office Building Cardiac Diagnostic Testing Medical Office Building Echo Lab [address] [facility], [address] [place] [address] 11/02/2025 11:00 AM EDT Office Visit [facility] [place] [address] [facility], [address] [place] [address] Ankita Vásquez PA [address] [place] [address] documented as of this encounter [...] documented as of this encounter Care Teams Construction Project Engineer Relationship Specialty Start Date End Date Onur Guerrero MD PCP - General Family Medicine 01/22/22 documented as of this encounter
--- OUTSIDE RECORDS SUMMARY | 2025-01-10 22:39 | XMS_ITS | Encounter Summary ---
Author Organization Healthcare Address [address] 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 Not on jessica e documented as of this encounter Plan of Treatment Upcoming Encounters Date Type Department Care Team (Late st Contact Info) Description 01/28/2025 11:20 AM EDT Office Visit [facility] [place] Nephrology, Bone & Mineral Metabolism [address], [address] [place] [address] Amanda Adams MD [address] [place] [address] 03/08/2025 1:30 PM EST Appointment PAV G Radiology [address] [place] [address] 03/08/2025 3:50 PM EST Office Visit [facility] [address] [place] [address] Vini Lord MD 800 [facility] Katarina Z[facility] [address] [place] [address] 05/18/2025 12:30 PM EST Clinical Support Pav CC Head, Neck & Respiratory [address] [facility], 2nd [place] [address] 05/18/2025 1:00 PM EST Office Visit Pav CC Head, Neck & Respiratory [address] [facility], 2nd [place] [address] [place] [address] [place] [address] 125 [place] [address] 05/18/2025 1:40 PM EST Office Visit Pav CC Head, Neck & Respiratory [address] [facility], 2nd [place] [address] Kassi Ronquillo, CENTRAL SUPPLY TECHNICIAN SUPERVISOR [address] [place] [address] 11/02/2025 9:30 AM EDT Appointment Medical Office Building Cardiac Diagnostic Testing Medical Office Building Echo Lab [address] [facility], [address] [place] [address] 11/02/2025 11:00 AM EDT Office Visit [facility] [place] [address] [facility], [address] [place] [address] Ankita Vásquez PA [address] [place] [address] documented as of this encounter [...] documented as of this encounter Care Teams Journal Clerk Relationship Specialty Start Date End Date Onur Guerrero MD PCP - General Family Medicine 01/22/22 documented as of this encounter
[2025-01-10 23:13] LABS: Chloride 102 mmol/L (98-107)
[2025-01-10 23:14] LABS: Albumin Level 4.5 g/dl (3.5-5.0); Potassium 4.6 mmoL/L (3.5-5.1); Sodium 137 mmol/L (136-145)
[2025-01-10 23:16] LABS: Anion Gap 15.6 mEq/L (5-15); Blood Urea Nitrogen 25 mg/dl (7-17); Carbon Dioxide 24 mmol/L (22.0-30.0); Creatinine,Serum 1.30 mg/dl (0.52-1.04); Estimated Glomerular Filt Rate 39 ml/min (>60); GFR (African American) 47 ML/MIN (>60)
[2025-01-10 23:17] LABS: Calcium 9.7 mg/dl (8.4-10.2); Glucose 96 mg/dl (74-100); Phosphorous 5.2 mg/dl (2.5-4.5)
== END 2025-01-10 23:59 | disposition home or self-care (01) ==
LOC: LAB.DROPOF 22:36
PROVIDERS: PCP Family Medicine; Visit Provider Internal Medicine Nephrology
DX: N17.9 Acute kidney failure, unspecified (principal); N18.2 Chronic kidney disease, stage 2 (mild); E83.52 Hypercalcemia
CPT/HCPCS: 80069; 82652; 83970

== ENCOUNTER 2025-03-25 13:14 | Outpatient (CLI) | payer MEDICARE, SELFPAY ==
--- OUTSIDE RECORDS SUMMARY | 2025-01-28 10:20 | XMS_ITS | Encounter Summary ---
Author Organization Healthcare Address [address] [place] [address] Care Team Providers Care Billing Customer Service Representative Name Role Phone Onur Guerrero MD Primary Care Provider Dyana vailable Reason for Referral * Consultation (Routine) - Authorized Specialty Diagnoses / Procedures Referred By Janet krueger Referred To Contact Diagnoses CKD (chronic kidney disease) stage 2, GFR 60-89 ml/min VIC (acute kidney injury) Amanda Adams MD [address] [address] Phone: tel: fax: Referral ID Status Reason Start Date Expiration Date V isits Requested Visits Authorized [id number] Authorized 01/28/2025 07/30/2026 1 1 Reason for Visit * Reason Comments Follow-up * Consultation (Routine) - Closed Specialty Diagnoses / Procedures Referred By Janet krueger Referred To Contact Diagnoses CKD (chronic kidney disease) stage 2, GFR 60-89 ml/min Other secondary hypertension Amanda Adams MD [address] [facility] [address] [place] [address] Phone: tel: fax: Referral ID Status Reason Start Date Expiration Date Visits Re quested Visits Authorized [id number] Closed 10/27/2024 04/28/2026 1 1 Encounter Details Date Type Department Care Team ([facility] st Contact Info) Description 01/28/2025 11:20 AM EDT Office Visit [facility] [employer] [place] Nephrology, Bone & Mineral Metabolism [address], [address] [place] [address] Amanda Adams MD [address] [place] [address] VIC (acute kidney injury) (Primary Dx); CKD (chronic kidney disease) stage 2, GFR 60-89 ml/min Social History Tobacco Use Types Packs/Day Years Used Date Smoking Tobacco: Never Smokeless Tobacco: Never Alcohol Use Standard Drinks/Week Comments Never 0 (1 standard drink = 0.6 oz pur e alcohol) PHQ-2 Answer Date Recorded Patient Health Questionnaire-2 Score 0 01/28/2025 PHQ-9 Answer Date Recorded Patient Health Questionnaire-9 [...] 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 Not on jessica e documented as of this encounter Last Filed Vital Signs Vital Sign [place] Time Taken Comments Blood Pressure 180/70 01/28/2025 11:38 AM EDT Pulse 60 01/28/2025 11:24 AM EDT Temperature 36.4 C (97.6 F) 01/28/2025 11:24 AM EDT Respiratory Rate - - Oxygen Saturation 96% 01/28/2025 11:24 AM EDT Inhaled Oxygen Concentration - - Weight 60.3 kg (132 lb 15 oz) 01/28/2025 11:24 A M EDT Height 157.5 cm (5' 2 ) 01/28/2025 11:24 AM EDT Body Mass Index 24.31 01/28/2025 11:24 AM EDT documented in this encounter Functional Status * Over the past 2 weeks, how often have you been bothered by any of the following problems? Question Answer Date of Assessment Author Little interest or pleasure in doing things Not at all 01/28/2025 11:26 AM EDT Gail Hawk Feeling down, depressed, or hopeless Not at all 01/28/2025 11:26 AM EDT Gail Hakw Patient Health Questionnaire -2 Score 0 01/28/2025 11:26 AM EDT Gail Hawk * How difficult have these problems made it for you to do your work, take care of things at home, or get along with other people? Answer Date of Assessment Author Not difficult at all 01/28/2025 11:26 AM EDT Jess Grant documented as of this encounter Miscellaneous Notes * Progress Notes - Amanda Adams MD - 01/28/2025 11:20 AM EDT EVAN Guerrier is a 85 y.o. female who presents for follow-up of CKD and HTN. History of Present Illness She reports an improvement in her overall health, with increased activity around the house. Her blood pressure was recorded as 130/51 this morning. She maintains a good appetite. She is currently on amiloride half a tablet, valsartan, and nifedipine. She experiences occasional dizziness, described as a sensation of lightheadedness that causes her to stagger backwards. She also reports episodes of rapid heart rate. Supplemental Information She had her parathyroid removed years ago. OBJECTIVE Vitals: 01/28/25 1124 BP: (!) 194/60 Pulse: 60 Temp: 36.4 ??C (97.6 ??F) SpO2: 96% PHYSICAL EXAMINATION Gen: NAD, elderly HEENT: AT/NC, EOMI, MMM Skin: warm, dry CV: RRR, trace to mild edema Pulm: no increased work of breathing, symmetric chest expansion, good inspiratory/expiratory effort GI: abd soft, ND Neuro: alert, interactive, cortical function grossly intact LAB RESULTS Outside labs reviewed. ASSESSMENT/PLAN Assessment: 85 year old female who presented to the clinic today for follow-up of CKD 2, proteinuria. - CKD 2/3: VIC improved with Cr back toward baseline of of 0.8-1.0. Current Cr 1.3. Renal function changes related to vandetanib per renal biopsy. Electrolytes [...] also make UPC appear more elevated. 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 Chronic changes with 23% globally sclerotic glomeruli. Moderate IF, moderate TA, severe intimal fibrosis of small arteries, and severe degree of arteriolar hyalinization. No immune complexes. - Hypervolemia: improving. Back on thiazide which may have worsened hyponatremia, hypokalemia, hypoMg, etc, which can be seen in vandetanib use. - Hypomagnesemia: on repletion. - S/p Parathyroidectomy/ Hyperphosphatemia: phos 5.2, suspect may be related to vandetanib use - [...] and UPC - continue following with oncology - adding cystatin C to usual labs RTC in 4 months Verbal consent was obtained to use ambient listening technology to assist in the documentation of the encounter: yes Orders Placed This Encounter Procedures Creatinine, Random, Urine Standing Status: Future Expected Date: 01/28/2025 Expiration Date: 07/29/2026 [facility] Immediate Protein, Random, Urine with Creatinine Standing Status: Future Expected Date: 01/28/2025 Expiration Date: 07/29/2026 [facility] Urinalysis with reflex microscopic (Culture NOT Included) Standing Status: Future Expected Date: 01/28/2025 Expiration Date: 07/29/2026 [facility] CBC W/O Differential Standing Status: Future Expected Date: 01/28/2025 Expiration Date: 07/29/2026 Release to patient in [facility]: Immediate Renal Function Panel, Plasma Standing Status: Future Expected Date: 01/28/2025 Expiration Date: 07/29/2026 [facility] Immediate Cystatin C Standing Status: Future Expected Date: 01/28/2025 Expiration Date: 08/01/2026 Release to patient in [facility]: Immediate [1] Follow Up Nephrology Standing Status: Future Expected Date: 05/31/2025 Expiration Date: 02/28/2026 Referral Priority: Routine Referral Type: Consultation Number of Visits Requested: 1 Note to Patient: The Cure Act makes medical noted like these [...] and the clinical opinion of the physician documented in this encounter Plan of Treatment Upcoming Encounters Date Type Department Care Team (Late st Contact Info) Description 05/18/2025 12:30 PM EST Clinical Support Pav CC Head, Neck & Respiratory [address] [facility], 2nd [place] [address] 05/18/2025 1:00 PM EST Office Visit Pav CC Head, Neck & Respiratory [address] [facility], 2nd [place] [address] Dominguez Duffy MD [address] [facility] [address] [place] [address] 05/18/2025 1:40 PM EST Office Visit Pav CC Head, Neck & Respiratory [address] [facility], 2nd [place] [address] Kassi Ronquillo APRN [address] [place] [address] 06/01/2025 1:20 PM EST Office Visit [facility] Nephrology, Bone & Mineral Metabolism [address] [facility], [address] [place] [address] Amanda Adams MD [address] [facility] [address] [place] [address] 11/02/2025 9:30 AM EDT Appointment Medical Office Building Cardiac Diagnostic Testing Medical Office Building Echo Lab [address] [facility], [address] [place] [address] 11/02/2025 11:00 AM EDT Office Visit [facility] [place] [address] [facility], [address] [place] [address] Ankita Vásquez PA [address] [place] [address] Scheduled Orders Name Type Priority Associated Diagnoses Orde r Schedule Creatinine, Random, Urine Lab Routine CKD (chronic kidney disease) stage 2, GFR 60-89 ml/min VIC (acute kidney injury) Expected: 01/28/2025 (Approximate), Expires: 07/29/2026 Protein, Random, Urine with Creatinine Lab Routine CKD (chronic kidney disease) stage 2, GFR 60-89 ml/min VIC (acute kidney injury) Expected: 01/28/2025 (Approximate), Expires: 07/29/2026 Urinalysis with reflex microscopic (Culture NOT Included) Lab Routine CKD (chronic kidney disease) stage 2, GFR 60-89 ml/min VIC (acute kidney injury) Expected: 01/28/2025 (Approximate), Expires: 07/29/2026 CBC W/O Differential Lab Routine CKD (chronic kidney disease) stage 2, GFR 60-89 ml/min VIC (acute kidney injury) Expected: 01/28/2025 (Approximate), Expires: 07/29/2026 Renal Function Panel, Plasma Lab Routine CKD (chronic kidney disease) stage 2, GFR 60-89 ml/min VIC (acute kidney injury) Expected: 01/28/2025 (Approximate), Expires: 07/29/2026 Cystatin C Lab Routine CKD (chronic kidney disease) stage 2, GFR 60-89 ml/min VIC (acute kidney injury) Expected: 01/28/2025 (Approximate), Expires: 08/01/2026 Scheduled Referrals Name Type Priority Associated Diagnoses Order Schedule Follow Up Nephrology Outpatient Referral Routine CKD (chronic kidney disease) stage 2, GFR 60-89 ml/min VIC (acute kidney injury) Expected: 05/31/2025 (Approximate), Expires: 02/28/2026 documented as of this encounter Visit Diagnoses Diagnosis VIC (acute kidney injury)- Primary CKD (chronic kidney disease) stage 2, GFR 60-89 ml/min Chronic kidney disease, Stage II (mild) documented in this encounter Additional Health Concerns Assessment Noted Time PHQ-9 Depression Total Score: 0 12/16/19 25 12:01 PM EDT A fall risk assessment has been complete d for the patient 01/28/2025 11:27 AM EDT A Body Mass Index follow-up plan has been documented for the patient 02/06/2025 1:31 PM EDT documented as of this encounter Care Teams Billing Customer Service Representative Relationship Specialty Start Date End Date Onur Guerrero MD PCP - General Family Medicine 01/22/22 documented as of this encounter
--- OUTSIDE RECORDS SUMMARY | 2025-03-25 13:17 | XMS_ITS | Encounter Summary ---
Author Organization Healthcare Address [address] 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 file Not on jessica e documented as of this encounter Plan of Treatment Upcoming Encounters Date Type Department Care Team (Late st Contact Info) Description 05/18/2025 12:30 PM EST Clinical Support [facility] 800 [facility], 2nd [place] [address] 05/18/2025 1:00 PM EST Office Visit [facility] 800 [facility], 2nd [place] [phone] Dominguez Duffy MD [facility]5 [facility] 125 [place] [phone] 05/18/2025 1:40 PM EST Office Visit [facility] 800 [facility], [address]nd [place] [phone] Kassi Ronquillo, BAT BOY/GIRL [address] [place] [address] 06/01/2025 1:20 PM EST Office Visit Professional [facility] Nephrology, Bone & Mineral Metabolism [address] [facility], [address] [place] [address] Amanda Adams MD [address] [facility] [address] [place] [address] 11/02/2025 9:30 AM EDT Appointment Medical Office Building Cardiac Diagnostic Testing Medical Office Building Echo Lab [address] [facility], [address] [place] [address] 11/02/2025 11:00 AM EDT Office Visit [facility] [place] [address] [facility], [address] [place] [address] Ankita Vásquez PA [address] [place] [phone] Scheduled Orders Name Type Priority Associated Diagnoses Orde r Schedule Calcitonin Lab Routine Medullary carcinoma of thyroid, isolated Expected: 03/08/2025 (Approximate), Expires: 09/08/2026 CEA Lab Routine Medullary carcinoma of thyroid, isolated Expected: 03/08/2025 (Approximate), Expires: 09/08/2026 CBC and differential Lab Routine Medullary carcinoma of thyroid, isolated Expected: 03/08/2025 (Approximate), Expires: 09/08/2026 Comprehensive metabolic panel Lab Routine Medullary carcinoma of thyroid, isolated Expected: 03/08/2025 (Approximate), Expires: 09/08/2026 ECG Adult (Future Visit - Performed in your clinic) ECG Routine Medullary carcinoma of thyroid, isolated Expected: 03/08/2025, Expires: 09/08/2026 documented as of this encounter Visit Diagnoses Diagnosis Medullary carcinoma of thyroid, isolated- Primary Malignant neoplasm of thyroid gland Hyponatremia Hyposmolality and/or hyponatremia documented in this encounter Additional Health Concerns Assessment Noted Time PHQ-9 Depression Total Score: 0 12/16/19 25 12:01 PM EDT A fall risk assessment has been complete d for the patient 01/28/2025 11:27 AM EDT A Body Mass Index follow-up plan has been documented for the patient 02/06/2025 1:31 PM EDT documented as of this encounter Care Teams Chemical Sprayer Relationship Specialty Start Date End Date Onur Guerrero MD PCP - General Family Medicine 01/22/22 documented as of this encounter
--- OUTSIDE RECORDS SUMMARY | 2025-03-25 13:17 | XMS_ITS | Encounter Summary ---
Author Organization [facility] Address 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 Vini Lord MD 800 [facility] Katarina Zarate [address] [address] Phone: tel: fax: Referral ID Status Reason Start Date Expiration Date V isits Requested Visits Authorized [id number] Authorized 03/10/2025 06/29/2025 1 1 Reason for Visit * Reason Onset Date Comments Med Refill 03/09/2025 Encounter Details Date Type Department Care Team (Late st Contact Info) Description 03/09/2025 Refill [facility] [address] [place] [address] Vini Lord MD 800 [facility] Katarina Zarate [address] [address] Medullary carcinoma of thyroid, isolated; Metastatic malignant neuroendocrine tumor to liver; 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 Social History Tobacco Use Types Packs/Day Years [...] Start Date Job End 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 Not on jessica e documented as of this encounter Plan of Treatment Upcoming Encounters Date Type Department Care Team ([facility] Contact Info) Description 05/18/2025 12:30 PM EST Clinical Support [facility] [address] [phone] 05/18/2025 1:00 PM EST Office Visit [facility] [address] [phone] Dominguez Duffy MD [address] [place] [phone] 05/18/2025 1:40 PM EST Office Visit [facility] [address] [phone] Kassi Ronquillo, SOCCER REFEREE [address] [place] [phone] 06/01/2025 1:20 PM EST Office Visit Professional [facility] Nephrology, Bone & Mineral Metabolism [address] [facility], [address] [place] [address] Amanda Adams MD [address] [place] [address] 11/02/2025 9:30 AM EDT Appointment Medical Office Building Cardiac Diagnostic Testing Medical Office Building Echo Lab [address] [facility], [address] [place] [address] 11/02/2025 11:00 AM EDT Office Visit [facility] [address] [facility], [address] [place] [address] Ankita Vásquez PA [address] [place] [address] documented as of this encounter Visit Diagnoses Diagnosis Medullary carcinoma of thyroid, isolated Malignant neoplasm of thyroid gland 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
--- OUTSIDE RECORDS SUMMARY | 2025-03-25 13:18 | XMS_ITS | Encounter Summary ---
Author Organization Healthcare Address [address] 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 Answer Date of Assessment Author Not difficult at all 01/28/2025 11:26 AM EDT Jess Grant documented as of this encounter Plan of Treatment Upcoming Encounters Date Type Department Care Team (Late st Contact Info) Description 05/18/2025 12:30 PM EST Clinical Support [facility] 800 [facility], [address] [place] [phone] 05/18/2025 1:00 PM EST Office Visit [facility] 800 [facility], [address] [place] [phone] Dominguez Duffy MD [address] [facility] 125 [place] [address] 05/18/2025 1:40 PM EST Office Visit [facility] 800 [facility], [address] [place] [phone] Kassi Ronquillo, COFFEE SOMMELIER 800 [place] [address] 06/01/2025 1:20 PM EST Office Visit [facility] Nephrology, Bone & Mineral Metabolism [address] [facility], [address] [place] [address] Amanda Adams MD [address] [facility] 401 [place] [address] 11/02/2025 9:30 AM EDT Appointment Medical Office Building Cardiac Diagnostic Testing Medical Office Building Echo Lab [address] [facility], [address] [place] [address] 11/02/2025 11:00 AM EDT Office Visit [facility] [place] [address] [facility], [address] [place] [phone] Ankita Vásquez PA [address] [place] [address] documented as of this encounter [...] documented as of this encounter Care Teams Stick Feeder Relationship Specialty Start Date End Date Onur Guerrero MD PCP - General Family Medicine 01/22/22 documented as of this encounter
--- OUTSIDE RECORDS SUMMARY | 2025-03-25 13:18 | XMS_ITS | Clinical Summary ---
Author Organization Healthcare Address [address] [place] [address] Care Team Providers Care Closing Agent Name Role Phone Onur Guerrero MD Primary [...] 3 tablets 2 times a day. Active magnesium oxide (Mag-Ox) 400 (240 Mg) MG tablet Take 1 tablet by mouth 2 times a day. 06/14/19 25 Active calcitriol (Rocaltrol) 0.25 MCG capsuleIndications:Po stsurgical hypoparathyroidism (CMS/HCC) Take 2 capsules (0.5 mcg) by mouth daily. 180 capsule 3 07/07/19 25 2025 Active Additional Information Patient taking differently: 0.25 mcgOral2 times daily, Reported on 03/11/2025 levothyroxine (Synthroid, Levoxyl) 175 MCG tablet Take 1 tablet by mouth daily. 90 tablet 1 11/16/19 25 Active NIFEdipine XL (Procardia XL) 30 MG 24 hr tabletIndications:Ess ential hypertension Take 1 tablet by mouth every evening. Do not crush, chew, or split. 90 tablet 1 11/27/19 25 Active valsartan (Diovan) 320 MG tabletIndications:Ess ential hypertension Take 1 tablet by mouth daily. 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 30 tablet 11 03/10/20 25 2025 Active aMILoride (Midamor) 5 MG tabletIndications:Oth er secondary hypertension,Hypomagn esemia Take 0.5 tablets by mouth daily. 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 30 tablet 11 03/09/20 24 2024 Disconti nued(Reo rder) aMILoride (Midamor) 5 MG tabletIndications:Oth er secondary hypertension,Hypomagn esemia Take 1 tablet by mouth daily. *Replaces hydrochlorothi azide* 30 tablet 5 12/11/19 25 2024 Disconti nued(Reo rder) predniSONE (Deltasone) 20 MG tablet TAKE 2 AND 1/2 TABLETS 1 TIME EACH DAY FOR 10 DAYS 2024 Disconti nued(The neyday complete d) Active Problems Problem Noted Date Diagnosed Date [...] 08/18/2024 Neck pain on right side 08/18/2024 Severe aortic stenosis 08/17/2024 Nephrotic range proteinuria 06/27/2023 Nonrheumatic aortic valve insufficiency 06/13/19 PAD (peripheral artery disease) 06/13/2023 Overview (06/13/2023): ITA abn on Rt 0.63, pt has no sx, has sx on Lt which was normal @ 1.03. Pt wants to monitor, ok to start ASA, reluctant to start statin, last time LFTs went up Renal insufficiency 11/29/2022 Poor compliance with medication 05/20/2022 At risk [...] Signed by Onur Shipman MD on 07/13/2021 Resolved Problems Problem Noted Date Diagnosed Date Resolved Date UTI (urinary tract infection) 08/18/2024 01/16/2025 Abnormal ECG 02/28/2023 01/16/2025 Second hand smoke exposure 08/22/2022 0 01/16/2025 Encounters Date Type Department Care Team Description 03/09/2025 Refill [facility] [address] [place] [phone] Vini Lord MD Medullary carcinoma of thyroid, isolated; Metastatic malignant neuroendocrine tumor to liver; 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, [address] [place] [address] Amanda Adams MD VIC (acute kidney injury) (Primary Dx); CKD (chronic kidney disease) stage 2, GFR 60-89 ml/min 01/28/2025 Travel 01/13/2025 Orders Only [facility] Nephrology, Bone & Mineral Metabolism [address] [facility], [address] [place] [address] Ivet Arroyo, PharmD Essential hypertension 01/11/2025 Telephone [facility] Nephrology, Bone & Mineral Metabolism [address] 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 Not on jessica e Last Filed Vital Signs Vital Sign Reading Time Taken Comments Blood Pressure 180/70 01/28/2025 11:38 AM EDT Pulse 60 01/28/2025 11:24 AM EDT Temperature 36.4 C (97.6 F) 01/28/2025 11:24 AM EDT Respiratory Rate 16 11/17/2024 10:59 AM EDT Oxygen Saturation 96% 01/28/2025 11:24 AM EDT Inhaled Oxygen Concentration - - Weight 60.3 kg (132 lb 15 oz) 01/28/2025 11:24 A M EDT Height 157.5 cm (5' 2 ) 01/28/2025 11:24 AM EDT Body Mass Index 24.31 01/28/2025 11:24 AM EDT Plan of Treatment Upcoming Encounters Date Type Department Care Team (Late st Contact Info) Description 05/18/2025 12:30 PM EST Clinical Support [facility] 800 [facility], 2nd [place] [address] 05/18/2025 1:00 PM EST Office Visit [facility] Res[facility] [address] [facility], 2nd [place] [phone] Dominguez Duffy MD [address] [facility] [address] [place] [address] 05/18/2025 1:40 PM EST Office Visit [facility] 800 [facility], 2nd [place] [address] Kassi Ronquillo, ASSISTANT BOILER OPERATOR [address] [place] [address] 06/01/2025 1:20 PM EST Office Visit [facility] [employer] [place] Nephrology, Bone & Mineral Metabolism [address] [facility], [address] [place] [phone] Amanda Adams MD [address] [facility] 401 [place] [address] 11/02/2025 9:30 AM EDT Appointment Medical Office Building Cardiac Diagnostic Testing Medical Office Building Echo Lab [address] [facility], [address] [place] [address] 11/02/2025 11:00 AM EDT Office Visit [facility] [place] [address] [facility], [address] [place] [address] Ankita Vásquez, MICHAEL [address] [place] [address] Health Maintenance Due Date Last [...] or (1 - 1-dose 75+ series) 2017 [id number] Vaccine (4 - season) 2024 02/22/2021, 06/29/2020, 06/01/2020 [facility]-Depression Screening 01/28/2026 025, 12/15/2024, 07/21/2023 [facility]-Diabetes: Hemoglobin A1C Discontinued 11/19/2023 [facility]-Influenza Vaccine Completed 02/08/2025 , 02/13/2024, 02/12/2023, Additional history exists HPV Vaccines Aged Out [...] this topic Medical Devices Implanted Type Area Route Sales Manager Device Identifier Shelf Expiration Date Model / Serial / Lot Valve Kit Abida 3 Ultra Tavr 23mm - [id number] Implanted:Qty: 1 on 10/21/2024 by Kane Hidalgo MD at [facility]-[id number] 05/10/2027 [id number] / / [id number] Procedures Procedure Name Priority Date/Time Associated Diagnosis Comments HEMOGLOBIN A1C Routine 11/19/2023 4:15 PM EDT Hyperglycemia from Last 3 Months or Most Recently Relevant to Health Maintenance Results * (ABNORMAL) Hemoglobin A1c (11/19/2023 4:15 PM EDT) Hemoglobin A1c 6.1(H) <5.7 % 11/19/2023 4:52 PM EDT [facility] Blood Venous blood specimen / Unknown Venipuncture / Unknown 11/19/2023 4:15 PM EDT 11/19/2023 4:34 PM EDT Narrative [facility] - 11/19/2023 4:52 PM EDT HA1C Interpretive Data: Diagnosis of Diabetes: Diabetic > or = 6.5% Pre-diabetic 5.7 to 6.4% Non-diabetic < or = 5.6% Glycemic Targets for Type I and Type II Diabetics: Non- Adults <7.0% Adults <6.0% Children and Adolescents <7.5% Source: [place] [employer]. Standards of medical care in diabetes,2017. Diabetes Care.2017:40 (suppl 1):S1-S135. HbA1c assay performed by an ion-exchange chromatography method that is certified traceable to the DCCT. us Dominguez Duffy MD LAB BLOOD ORDERABLES Final Resu lt [facility] [address] [place] [address] from Last 3 Months or Most Recently [...] Patient has decision-making capacity? Yes Care Teams Closing Agent Relationship Specialty Start Date End Date Onur Guerrero MD PCP - General Family Medicine 01/22/22
--- OUTSIDE RECORDS SUMMARY | 2025-03-25 13:18 | XMS_ITS | Encounter Summary ---
Author Organization Healthcare Address 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 Not on jessica e documented as of this encounter Plan of Treatment Upcoming Encounters Date Type Department Care Team ([facility] Contact Info) Description 05/18/2025 12:30 PM EST Clinical Support [facility] [address] [facility], 2nd [place] [address] 05/18/2025 1:00 PM EST Office Visit [facility] [address] [facility], 2nd [place] [address] Dominguez Duffy MD [address] [facility] [address] [place] [address] 05/18/2025 1:40 PM EST Office Visit [facility] 800 [facility], 2nd [place] [address] Kassi Ronquillo, MANAGER TRANSPORTATION PLANNING 800 [place] [address] 06/01/2025 1:20 PM EST Office Visit [facility] Nephrology, Bone & Mineral Metabolism [address] [facility], [address] [place] [phone] Amanda Adams MD [address] [facility] 401 [place] [address] 11/02/2025 9:30 AM EDT Appointment Medical Office Building Cardiac Diagnostic Testing Medical Office Building Echo Lab [address] [facility], [address] [place] [address] 11/02/2025 11:00 AM EDT Office Visit [facility] [place] [address] [facility], [address] [place] [address] Ankita Vásquez PA 800 [place] [address] documented as of this encounter Visit Diagnoses Diagnosis Essential hypertension Unspecified essential hypertension documented in this encounter Additional Health Concerns Assessment Noted Time A fall risk assessment has been complete d for the patient 06/13/2023 11:17 AM EST A Body Mass Index follow-up plan has been documented for the patient 04/07/2023 1:37 PM EST documented as of this encounter Care Teams Insulation Extruder Operator Relationship Specialty Start Date End Date Onur Guerrero MD PCP - General Family Medicine 01/22/22 documented as of this encounter
--- OUTSIDE RECORDS SUMMARY | 2025-03-25 13:18 | XMS_ITS | Data Portability ---
Author Organization [facility] MOUNIKA Sullivan RICHWOOD CLOSED Address [address] [facility] [address] [place] [address] Care Team Providers Care Professor Of Communication Name Role Phone NASRA MCGRAW Primary Care Provider [phone] Assessment No assessment recorded. Plan of Treatment Reminders Order Date Submit Date Provider Last Modified By Organization Details Last Modified Time Details Appointments DERM ESTABL ISHED 2025 10:30A M STEVEN GARCIA ANIMAL PHYSIOLOGY TEACHER Not available Not available Not available Lab surgic al pathol ogy study 2023 024 [facility], [address] [place] [address], [phone], 11/19/2023 12:06:33 Referral None record ed. Procedures None record [...] Name and Address Organization Details Recorded Time 03/10/20 25 DAK - Cryo AK completed Keri [facility] 03/10/2025 14:51:00 06/07/19 25 Injection - Intralesional completed Yanira [facility] 06/07/2024 10:15:05 12/04/19 24 DAK - ED&C; Scalp,neck,hand,f oot completed Keri [facility] 12/04/2023 11:44:01 11/17/19 24 Biopsy Skin Lesion; Tangential completed [facility] 11/17/2023 14:40:16 11/17/19 24 Injection - Intralesional completed [facility] 11/17/2023 14:45:35 11/17/19 24 Destruction Premalignant Lesion(s) completed [facility] 11/17/2023 14:42:05 05/05/19 24 Biopsy Skin Lesion; Tangential completed [facility] 05/05/2023 10:02:30 05/05/19 24 Destruction Premalignant Lesion(s) completed [facility] 05/05/2023 10:02:24 Imaging Results None recorded. Procedure Notes None recorded. Medical Equipment None Reported. Allergies Allergen ID Allergen Name Allergen Category Reaction Reaction Severity Criticality Documentation Date Start Date Code Code System Note Provider Name and Address Organization Details Recorded Time 105212 Augmentin medicatio n Not available Not available Not available 05/05/2023 58640 2 [facility] 09:[facility]15 Medications Name Sig Start Date [...] Diagnosis SNOMED-CT Code Diagnosis ICD10 Code Diagnosis IMO Codes Diagnosis Note [id number] ALEJANDRO KRAMER R, TRADEMARK AFFIXER SALOMON [facility] [address] [facility] [place] [address] 05/05/2023 09:05:46 05/05/2023 10:21:49 History of malignant neoplasm of skin 308964519 Z85.828 Last skin cancer - 09/2021 - No evidence of recurrence today- Call with any worrisome lesions or if treated lesions return- Return at regular intervals for skin exam as recommende d Multiple b enign melanocytic nevi 574677360 D22.5 - Benign moles seen on exam [...] changing or worrisome lesions Seborrheic keratosis 394 885199 L82.1 - Benign overgrowth s of skin - 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 Risks, benefit, and procedure discussed with patient. Consent obtained. Actinic keratosis 664995 007 L57.0 Actinic keratoses are precancero us lesions that may progress to squamous cell carcinoma if untreated. UV light and genetics may increase risk. Treated lesions should blister, scab over, and heal within a few weeks. If treated lesion(s) does not resolve within 1-2 months, patient agrees to follow up for re-evaluat ion. [id number] DARRION LIEBERMAN MD [place] [address] [place] [address] 06/17/2023 08:21:04 06/20/2023 12:23:16 [id number] ALEJANDRO Goodman APRN [address] [place] [address] 11/17/2023 13:43:54 11/17/2023 14:46:09 History of malignant neoplasm of skin 418591264 Z85.828 last skin cancer - 04/2023 - No evidence of recurrence today- Call with any worrisome lesions or if treated lesions return- Return at regular intervals for skin exam as recommende d Multiple b enign melanocytic nevi 494997766 D22.5 - Benign moles seen on exam [...] changing or worrisome lesions Seborrheic keratosis 394 975881 L82.1 - Benign overgrowth s of skin - Hereditary Senile angioma 0046721 I 78.1 - Benign blood vessel growths - Hereditary Solar lentigo 09546080 L 81.4 - Benign brown spots - Sun-induce d Neoplasm o f uncertain behavior of skin 44879797 D48.5 Recommend blade biopsy. Risks, benefit, and [...] for re-evaluat ion. 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 Frequently due to pressure such as sleeping on ear. Treatment includes avoiding pressure on ear, ILK, and excision or curettage. Recommende d a donut pillow to sleep on if can't change side you sleep on. 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 [id number] ALEJANDRO Goodman APRN [facility] [address] [place] [address] 06/07/2024 09:31:07 06/07/2024 10:34:33 History of malignant neoplasm of skin 997862295 Z85.828 - No evidence of recurrence today- Call with any worrisome lesions or if treated lesions return- Return at regular intervals for skin exam as recommende d most recent; 10/2023 Multiple b enign melanocytic nevi 320130408 D22.5 - Benign moles seen on exam [...] changing or worrisome lesions Seborrheic keratosis 394 482098 L82.1 - Benign overgrowth s of skin - Hereditary Senile angioma 7765312 I 78.1 - Benign blood vessel growths - Hereditary Solar lentigo 93912639 L 81.4 - Benign brown spots - Sun-induce d Chondroder matitis nodularis helicis 53048018 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.009 R52 Bx proven t reports using [...] to use a donut pillow for sleep [id number] ALEJANDRO Goodman, KARINA LATIF [facility] [address] [place] [place] [address] 03/10/2025 13:29:51 03/10/2025 14:55:59 History of malignant neoplasm of skin 475025691 Z85.828 most recent skin cancer 10/2023 - No evidence of recurrence today- Call with any worrisome lesions or if treated lesions return- Return at regular intervals for skin exam as recommende d Multiple b enign melanocytic nevi 968725608 D22.5 - Benign moles seen on exam [...] changing or worrisome lesions Seborrheic keratosis 394 713472 L82.1 - Benign overgrowth s of skin - Hereditary Senile angioma 5317499 I 78.1 - Benign blood vessel growths - Hereditary Solar lentigo 40313948 L 81.4 - Benign brown spots - Sun-induce d Actinic keratosis 037687 007 L57.0 01727 Actinic keratoses are precancero us lesions that may progress to squamous cell carcinoma if untreated. UV light and genetics may increase risk. Treated lesions should blister, scab over, and heal within a few weeks. If treated lesion(s) does not resolve within 1-2 months, patient agrees to follow up for re-evaluat ion. Health Concerns Section Related Observation LastModified by Organization Detai ls LastModified Time None Recorded Concern Status LastModified by Organization Details LastModified Time None Recorded Advance Directives Directive None Recorded Payers Insurance Date Sequence Insurance Name Policy Number Policy Christianson Covered Member ID Christianson Member ID Guarantor Name 11/23/2024 1 *SELF PAY* Ol lópez F Ring 03/16/2025 1 [employer] (MEDICARE REPLACEMENT/A DVANTAGE - PPO) Clinton F Ring [id number] Clinton F Ring 03/10/2025 1 [employer] Clinton F Ring [id number] Clinton F Ring 03/10/2025 [employer] (MEDICARE REPLACEMENT/A DVANTAGE - PPO) Clinton F Ring [id number] Clinton F Ring Notes Date Note Type Note Provider Name and Address Organization Details Recorded Time 11/17/2023 text/html ROS as noted in the HPI Here for a full body skin examination - last skin check: April 2023- history of skin cancer - BCC and SCC- last skin cancer was in 04/2023- spots of concern today: I have all kinds of spots ALEJANDRO GARCIA, TRADEMARK AFFIXER [address] [place], [address], [facility] 11/18/2023 08:49:56 12/04/2023 text/html ROS as noted in the HPI I am here for my EDC Location: R posterior neck Bx proven Superfical BCC Path # [id number] ALEJANDRO GARCIA, TRADEMARK AFFIXER [address] [place], [address], [facility] 12/04/2023 12:49:51 06/07/2024 text/html ROS as noted in the HPI Here for a full body skin examination [...] I have all kinds of spots ALEJANDRO GARCIA, TRADEMARK AFFIXER [address] [place], [address], [facility] 06/07/2024 10:47:33 03/10/2025 text/html Here for a full body skin examination - last skin check: 05/2024 - history of skin cancer - SCC - last skin cancer was in 10/2023 - spots of concern today: L thumb, R arm ALEJANDRO GARCIA, TRADEMARK AFFIXER [address] [place], [address], [facility] 03/11/2025 11:29:51 OBGyn Episode No OBEpisode recorded.
--- OUTSIDE RECORDS SUMMARY | 2025-03-25 13:18 | XMS_ITS | Clinical Summary ---
[facility] Organization [facility] Address [address] [place] [id number] Care Team Providers Care Residence Manager Name Role Phone Provider, No Known Primary [...] 1-dose 75+ series) 7 ANNUAL PHYSICAL 08/30/2017 INFLUENZA VACCINE 11/26/2024 COVID-19 Vaccine ( - season) 2024 Care Teams Residence Manager Relationship Specialty Start Date End Date Provider, [place] [address] PCP - General 06/24/16
--- OUTSIDE RECORDS SUMMARY | 2025-03-25 13:18 | XMS_ITS | Encounter Summary ---
Author Organization Healthcare Address [address] [place] [address] Care Team Providers Care Canvas Goods Maker Name Role Phone LassiterSarina Bhavana COLLINS Primary Care Provider +1- [phone] Onur Guerrero MD Primary Care Provider Dyana vailable Laury Jerez FURNACE HAND Unavailable Unavailable Encounter Details Date Type Department Care Team ([facility] Contact Info) Description 05/23/2021 Lab Requisition [facility] [address] [place] [address] Romelia Monroe MD [address] [place] [address] Nontoxic single thyroid nodule Social History Tobacco [...] Upcoming Encounters Date Type Department Care Team ([facility] Contact Info) Description 05/18/2025 12:30 PM EST Clinical Support [facility] Res[facility] [address] [facility], 2nd [place] [address] 05/18/2025 1:00 PM EST Office Visit [facility] Res[facility] [address] [facility], 2nd [place] [address] Dominguez Duffy MD [facility] [address] [place] [address] 05/18/2025 1:40 PM EST Office Visit [facility] [address] [facility], 2nd [place] [address] Kassi Ronquillo, DENTAL MECHANIC [address] [place] [address] 06/01/2025 1:20 PM EST Office Visit [facility] Nephrology, Bone & Mineral Metabolism [address] [facility], [address] [place] [address] Amanda Adams MD [address] [facility] [address] [place] [address] 11/02/2025 9:30 AM EDT Appointment Medical Office Building Cardiac Diagnostic Testing Medical Office Building Echo Lab [address] [facility], [address] [place] [address] 11/02/2025 11:00 AM EDT Office Visit [facility] [address] [facility], [address] [place] [address] Ankita Vásquez PA [address] [place] [address] documented as of this encounter Procedures Procedure Name Priority Date/Time Associated Diagnosis Comments CYTOLOGY CONSULT Routine 05/23/2021 10:3 6 AM EST Nontoxic single thyroid nodule documented in this encounter Results * Cytology Consult (05/23/2021 10:36 AM EST) Case Report Cytology Case: [id number] Authorizing Provider: Romelia Monroe MD Collected: 05/23/2021 1036 Ordering Location: [facility] Lab Received: 05/23/2021 1036 Pathologist: Jj Carrillo MD Specimen: Thyroid, CF22-40 05/24/2021 2:49 PM EST [facility] Final Diagnosis OUTSIDE CASE CF22-40; COLLECTED 05/02/21 MIDLINE STERNAL NOTCH, FINE NEEDLE ASPIRATION: - MEDULLARY THYROID CARCINOMA, SEE COMMENT. RIGHT NECK, LYMPH NODE, FINE NEEDLE ASPIRATION: - MEDULLARY THYROID CARCINOMA, SEE COMMENT. 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 Cell concentrates from both the midline sternal [...] few lymphocytes present. 05/24/2021 2:49 PM EST [facility] Clinical Information E04.1 - Nontoxic single thyroid nodule [ICD-10-CM] 05/24/2021 2:49 PM EST [facility] Gross Description A. CF22-40 For clinical data and diagnosis (A. Malignant B. Malignant) for this specimen (CF22-40/A. Sternal Notch, FNA B. Right Neck Lymph Node, FNA) see final report issued by [facility] Pathology Department. 05/24/2021 2:49 PM EST [facility] Note: A resident was involved in the service. I attest I examined the relevant preparations for the specimens and confirmed the diagnosis or interpretation. 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 documented in this encounter Additional Health Concerns Infection Onset Date Last Indicated Resolved Time COVID-19 Rule-Out 08/14/2021 08/14/2021 08/14/2021 3:07 PM EDT Assessment Noted Time A fall risk assessment has been complete d for the patient 05/21/2021 1:47 PM EST documented as of this encounter Care Teams Canvas Goods Maker Relationship Specialty Start Date End Date Sarina Lassiter, DENTAL MECHANIC [address] [place] [address] PCP - General 09/08/20 01/21/22 Onur Guerrero MD [address] [place] [address] PCP - General Family Medicine 01/22/22 Laury Jerez, [place] [id number] Final Canoe Inspector Bottle Line Worker 08/14/21 08/14/21 documented as of this encounter
--- OUTSIDE RECORDS SUMMARY | 2025-03-25 13:18 | XMS_ITS ---
Author Organization Unknown TREATMENT PLAN Planned Care Start Date Provider Encounter for Check-up [id number] [facility]
--- OUTSIDE RECORDS SUMMARY | 2025-03-25 13:18 | XMS_ITS | Encounter Summary ---
Author Organization Healthcare Address [address] 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 Not on file Not on fi [...] [address] [facility], [address] [place] [address] 05/18/2025 1:00 PM EST Office Visit [facility] Res[facility] [address] [facility], [address]nd [place] [address] Dominguez Duffy MD [address] [facility] [address] [place] [address] 05/18/2025 1:40 PM EST Office Visit [facility] Res[facility] [address] [facility], [address] [place] [address] Kassi Ronquillo, TUMBLER TENDER [address] [place] [address] 06/01/2025 1:20 PM EST Office Visit [facility] Nephrology, Bone & Mineral Metabolism [address] [facility], [address] [place] [address] Amanda Adams MD [address] [facility] [place] [address] [place] [address] 11/02/2025 9:30 AM EDT Appointment Medical Office Building Cardiac Diagnostic Testing Medical Office Building Echo Lab [address] [facility], [address] [place] [address] 11/02/2025 11:00 AM EDT Office Visit [facility] [place] [address] [facility], [address] [place] [address] Ankita Vásquez PA [address] [place] [address] documented as of this encounter Procedures Procedure Name Priority Date/Time Associated Diagnosis Comments AP MISCELLANEOUS LAB TEST (SO) Routine 09/10/2021 12:00 AM EDT Malignant neoplasm of thyroid gland (CMS/HCC) documented in this encounter Results * - Miscellaneous Test (09/10/2021 12:00 AM EDT) Test name HAKEEM Muñiz-Ca ris 09/28/2021 9:31 AM EDT [facility]ALTH[facility]ARE LAB Comment:[id number] A4 Test Result see scan 09/28/2021 9:31 AM EDT [facility] See Scanned Result 09/28/2021 9:[address] [facility] Tissue 09/10/2021 09/10/2021 2:5 4 PM EDT Onur Shipman MD LAB REF LAB BLOOD AND FLUID ORD Final Result [facility] [address] [place] [address] documented in this encounter Visit Diagnoses Diagnosis Malignant neoplasm of thyroid gland (CMS/HCC) Malignant neoplasm of thyroid gland documented in this encounter Additional Health Concerns Assessment Noted Time A fall risk assessment has been complete d for the patient 08/21/2021 12:36 PM EDT documented as of this encounter Care Teams Rink Rat Relationship Specialty Start Date End Date Sarina Lassiter APRN [address] [place] [address] PCP - General 09/08/20 01/21/22 Onur Guerrero MD [address] [place] [address] PCP - General Family Medicine 01/22/22 documented as of this encounter
--- OUTSIDE RECORDS SUMMARY | 2025-03-25 13:18 | XMS_ITS | Encounter Summary ---
Author Organization Healthcare Address [address] [place] [address] Care Team Providers Care [place] Actor Name Role Phone Sarina Lassiter APRN Primary Care Provider +1- [phone] Onur Guerrero MD Primary Care Provider Dyana vailable Laury JerezW Unavailable Unavailable Encounter Details Date Type Department Care Team (Late Contact Info) Description 05/03/2021 Orders Only External Location [address] [place] [address] Provider, External Social History Tobacco [...] Department Care Team (Late Contact Info) Description 05/18/2025 12:30 PM EST Clinical Support [facility] [address] [address] 05/18/2025 1:00 PM EST Office Visit [facility] [address] [address] Dominguez Duffy MD [address] [place] [address] 05/18/2025 1:40 PM EST Office Visit [facility] [address] [address] Kassi Ronquillo APRN [address] [place] [address] 06/01/2025 1:20 PM EST Office Visit [facility] Nephrology, Bone & Mineral Metabolism [address] [facility], [address] [place] [address] Amanda Adams MD [address] [facility] [address] [place] [address] 11/02/2025 9:30 AM EDT Appointment Medical Office Building Cardiac Diagnostic Testing Medical Office Building Echo Lab [address] [facility], [address] [place] [address] 11/02/2025 11:00 AM EDT Office Visit [facility] [place] [address] [facility], [address] [place] [address] Ankita Vásquez PA [address] [place] [address] documented as of this encounter [...] documented as of this encounter Care Teams [place] Actor Relationship Specialty Start Date End Date Sarina Lassiter, MANAGER [employer] [address] [place] [address] PCP - General 09/08/20 01/21/22 Onur Guerrero MD [address] [place] [address] PCP - General Family Medicine 01/22/22 Laury Jerez, [place] [address] Thread Roller Textiles Printer 08/14/21 08/14/21 documented as of this encounter
--- OUTSIDE RECORDS SUMMARY | 2025-03-25 13:18 | XMS_ITS | Continuity of Care Document ---
Author Organization [facility] Address [address] [place] [address] Care Team Providers Care Childcare Provider Name Role Phone NASRA MCGRAW Primary Care Provider Assessment No assessment recorded. Plan of Treatment Reminders Order Date Submit Date Provider Last Modified By Organization Details Last Modified Time Details Appointments DERM ESTABL ISHED 2025 10:30A M STEVEN GARCIA GIFTS OFFICER Not available Not available Not available Lab [...] 03/10/20 25 DAK - Cryo AK completed [facility] 03/10/2025 14:51:00 06/07/19 25 Injection - Intralesional completed [facility] 06/07/2024 10:15:05 12/04/19 24 DAK - ED&C; Scalp,neck,hand,f oot completed [facility] 12/04/2023 11:44:01 11/17/19 24 Biopsy Skin Lesion; Tangential completed [facility] 11/17/2023 14:40:16 11/17/19 24 Injection - Intralesional completed [facility] 11/17/2023 14:45:35 11/17/19 24 Destruction Premalignant Lesion(s) completed [facility] 11/17/2023 14:42:05 05/05/19 24 Biopsy Skin Lesion; Tangential completed [facility] 05/05/2023 10:02:30 05/05/19 24 Destruction Premalignant Lesion(s) completed [facility] 05/05/2023 10:02:24 Imaging Results None recorded. Procedure Notes None recorded. Medical Equipment None Reported. Allergies Allergen ID Allergen Name Allergen Category Reaction Reaction Severity Criticality Documentation Date Start Date Code Code System Note Provider Name and Address Organization Details Recorded Time 298267 Augmentin medicatio n Not available Not available Not available 05/05/2023 13667 2 RxNorm Sisi Pittman [facility] 4 09:24:15 Medications Name Sig Start Date [...] ICD10 Code Diagnosis IMO Codes Diagnosis Note [id number] ALEJANDRO KRAMER R, JANITORIAL SUPERVISOR [facility] [address] [facility] [place] [address] 03/10/2025 13:29:51 03/10/2025 14:55:59 History of malignant neoplasm of skin 991955962 Z85.828 most recent skin cancer 10/2023 - No evidence of recurrence today- Call with any worrisome lesions or if treated lesions return- Return at regular intervals for skin exam as recommende d Multiple b enign melanocytic nevi 969637419 D22.5 - Benign moles seen on exam [...] changing or worrisome lesions Seborrheic keratosis 394 381849 L82.1 - Benign overgrowth s of skin - Hereditary Senile angioma 2192055 I 78.1 - Benign blood vessel growths - Hereditary Solar lentigo 73684357 L 81.4 - Benign brown spots - Sun-induce d Actinic keratosis 837858 007 L57.0 25876 Actinic keratoses are precancero us lesions that [...] Member ID Christianson Member ID Guarantor Name 03/10/2025 1 [employer] (MEDICARE REPLACEMENT/A DVANTAGE - PPO) Lin Guerrier [id number] Lin F Chey Notes Date Note Type Note Provider Name and Address Organization Details Recorded Time 03/10/2025 text/html Here for a full body skin examination - last skin check: 05/2024 - history of skin cancer - SCC - last skin cancer was in 10/2023 - spots of concern today: Rex Alanis arm, JANITORIAL SUPERVISOR [address] [place], [address], [facility] - [facility] 03/11/2025 11:29:51 OBGyn Episode No OBEpisode recorded.
--- OUTSIDE RECORDS SUMMARY | 2025-03-25 13:18 | XMS_ITS ---
Author Organization [facility] Address [address] [place] [address] Care Team Providers Care Opto Mechanical Technician Name Role Phone Onur Guerrero MD [...] 12,440 Gy-cm2 0 Gy-cm2 12,4 40 Gy-cm2 Resolved Problems Problem Noted Date Diagnosed Date Resolved Date UTI (urinary tract infection) 08/18/2024 01/16/2025 Abnormal ECG 02/28/2023 01/16/2025 Second hand smoke exposure 08/22/2022 0 01/16/2025
--- NOTE | 2025-03-25 13:30 | MM_ITS ---
PROCEDURE INFORMATION: Exam: MG Bilateral Screening 3D Mammography Exam date and time: 03/25/2025 1:30 PM Age: 85 years old Clinical indication: Screening. No family history of breast cancer. TECHNIQUE: Imaging protocol: Bilateral Screening tomosynthesis and 2D mammography including computer-aided detection (CAD) when performed. COMPARISON: MG MM DIG SCREENING MAMM BI W/CAD 03/15/2024 1:26 PM FINDINGS: MAMMOGRAPHY: Breast composition: The breasts are extremely dense, which lowers the sensitivity of mammography. Mass: None. Architectural distortion: None. Calcifications: No suspicious calcifications. Asymmetric density: None. Skin thickening: None. Axillary adenopathy: None. IMPRESSION: No mammographic evidence of malignancy. Annual screening is recommended unless otherwise clinically indicated. ASSESSMENT: BI-RADS Category 1: Negative.
== END 2025-03-25 23:59 | disposition home or self-care (01) ==
LOC: RAD 13:15
PROVIDERS: PCP Family Medicine; Visit Provider Family Medicine
DX: Z12.31 Encounter for screening mammogram for malignant neoplasm of breast (principal); R92.343 Mammographic extreme density, bilateral breasts
CPT/HCPCS: 77063; 77067